=== PATIENT | female | born 1955 | race Caucasian/White ===

== ENCOUNTER 2016-09-09 07:57 | Inpatient (IN) | payer BC ==
[2016-09-09] MEDS ORDERED: ONDANSETRON 4 MG/2 ML VIAL IVP STA (08:36)
[2016-09-09] MEDS ORDERED: MORPHINE SULFATE 4 MG/ML SYRINGE IVP STA ×2 (08:38→14:30)
[2016-09-09] MEDS ORDERED: PANTOPRAZOLE 40 MG/10 ML VIAL IVP STA (08:39)
--- NOTE | 2016-09-09 08:43 | ED ---
Nausea/Vomiting/Diarrhea HPI - General Chief complaint: Nausea/Vomiting/Diarrhea Stated complaint: vomiting Time Seen by Provider: 09/09/16 08:22 Source: patient, family Mode of arrival: wheelchair Limitations: no limitations - History of Present Illness Initial comments: Presented with intractable dry heaving since 1 AM this morning. She went to bed feeling fine she ate some fruits and pain about her last night before going to bed there was no eating out toward her she didn't really eat any of the leftovers and none of the family member has same sort of symptoms. She does have a history of hiatal hernia and she had a hiatal hernia surgery [facility]. Because of that she is unable to throw but she had intractable nausea. She does have a history of chronic, body aches and pains and she said because of the throwing up it's worse now. As such she denies any chest pain no pleuritic chest pain she does have a history of asthma and diabetes and she is a steroid-dependent asthmatic - Related Data Home Medications Medication Instructions Recorded Confirmed Escitalopram [Lexapro] 30 mg PO QAM 01/01/14 09/09/16 Furosemide [Lasix] 40 mg PO BID 01/01/14 09/09/16 Insulin Aspart [NovoLOG] See Protocol SQ CONTINUOUS 01/01/14 09/09/16 Montelukast [Singulair] 10 mg PO HS 01/01/14 09/09/16 Spironolactone [Aldactone] 25 mg PO TID 01/01/14 09/09/16 ALPRAZolam [Xanax] 0.25 mg PO TID 01/02/14 09/09/16 buPROPion HCL [Wellbutrin SR] 450 mg PO QAM 01/02/14 09/09/16 Calcium Citrate/Vitamin D3 2 tab PO DAILY 04/17/14 09/09/16 [Calcium Citrate - Vit D3 Tab] Magnesium Oxide [Mag-Ox] 400 mg PO DAILY 09/25/14 09/09/16 Potassium Chloride ER [K-Dur 20] 60 meq PO BID 11/06/14 09/09/16 Amitriptyline HCl [Elavil] 30 mg PO HS 12/07/14 09/09/16 Ascorbic Acid [Vitamin C] 500 mg PO DAILY 12/07/14 09/09/16 Vitamin B Complex 1 tab PO DAILY 12/07/14 09/09/16 Albuterol Sulfate [Ventolin HFA] 2 puff INHALATION RT-QID PRN 05/12/15 09/09/16 Immunoglobulin 1 dose IVPB QMONTH 05/12/15 09/09/16 Fluconazole [Diflucan] 100 mg PO DAILY PRN 07/06/15 09/09/16 Pregabalin [Lyrica] 75 mg PO TID 05/06/16 09/09/16 Pantoprazole Sodium [Protonix] 20 mg PO DAILY 05/07/16 09/09/16 Prialt 1 dose INTRATHECA DIRECTED 08/04/16 09/09/16 Budesonide [Pulmicort] 0.5 mg INHALATION RT-BID 09/09/16 09/09/16 Fluticasone/Salmeterol [Advair Hfa 2 puff INHALATION RT-BID 09/09/16 09/09/16 230-21 Mcg Inhaler] Pravastatin Sodium [Pravachol] 10 mg PO HS 09/09/16 09/09/16 oxyCODONE-APAP 10-325MG [Percocet 1 tab PO BID 09/09/16 09/09/16 10-325 mg] predniSONE 20 mg PO DAILY 09/09/16 09/09/16 Allergies Allergy/AdvReac Type Severity Reaction Status Date / Time cefuroxime axetil Allergy Severe Abdominal Verified 09/09/16 08:06 [From Ceftin] Pain ciprofloxacin HCl Allergy Severe Abdominal Verified 09/09/16 08:06 [From Cipro] Pain NSAIDS (Non-Steroidal Allergy Dyspnea Verified 09/09/16 08:06 Anti-Inflamma erythromycin base AdvReac Unknown Abdominal Verified 09/09/16 08:06 [Erythromycin Base] Pain sulfamethoxazole AdvReac Unknown Abdominal Verified 09/09/16 08:06 [From Bactrim] Pain trimethoprim [From Bactrim] AdvReac Unknown Abdominal Verified 09/09/16 08:06 Pain indomethacin [From Indocin] AdvReac Confusion Verified 09/09/16 08:06 indomethacin sodium AdvReac Confusion Verified 09/09/16 08:06 [From Indocin] Penicillins AdvReac Nausea & Verified 09/09/16 08:06 Vomiting Sulfa (Sulfonamide AdvReac Abdominal Verified 01/14/17 08:06 Antibiotics) Pain Review of Systems ROS Statement: Those systems with pertinent positive or pertinent negative responses have been documented in the HPI. ROS Other: All systems not noted in ROS Statement are negative. Past Medical History Past Medical History: Asthma, Diabetes Mellitus, Eye Disorder, Fibromyalgia, GERD/Reflux, Hyperlipidemia, Hypertension, Musculoskeletal Disorder, Pneumonia, Respiratory Disorder, Skin Disorder Additional Past Medical History / Comment(s): Bronchial asthma, tracheobronchomalacia, common variable immunoglobulin deficiency and the patient used to have frequent bouts of pneumonias in the past according multiple bronchoscopies including infections with Serratia marcescens and these pneumonia is improved after she was placed on IVIG, chronic steroid use, suspected component of adrenal insufficiency due to chronic steroid use, 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 Dominguez from infectious disease, cataracts, glaucoma, fibromyalgia, chronic pain, compression fracture of the spine, History of Any Multi-Drug Resistant Organisms: MRSA Date of last positivie culture/infection: 2010 MDRO Source:: right hand Past Surgical History: Appendectomy, Breast Surgery, Cholecystectomy, Tubal Ligation Additional Past Surgical History / Comment(s): MULT BRONCHS, WASHINGS, LAST 04/17. EXC [facility] CATARACT. BLEPHAROPLASTY/ R&L BREAST BIOPSIES; PORT A CATH IN LEFT CHEST-CHANGED TO RT CHEST,EXC MYCOBACTERIUM AREAS RT ARM 2011; UPPER TEETH EXTRACTED. RT SALPINGECTOMY/FALLOPIAN TUBE REMOVED, I&D BOIL.Jul [facility] EYE AND MUSCLE SURGERY; - mouth (bone) surgery Past Anesthesia/Blood Transfusion Reactions: Motion Sickness, Postoperative Nausea & Vomiting (PONV) Past Psychological History: Anxiety, Depression Additional Psychological History / Comment(s): . Lives in the family home with her . Not employed outside of the home. Lifelong nonsmoker. No significant history of alcohol use. No history of recreational drug use. No international travels. There are pet dogs in the home. They're still chilled in the home that they are responsible for. Smoking Status: Never smoker Past Alcohol Use History: None Reported Past Drug Use History: None Reported - Past Family History Mother Family Medical History: Cancer Additional Family Medical History / Comment(s): HAD OPEN HEART SURGERY, BREAST CANCER Father Additional Family Medical History / Comment(s): r/t suicide General Exam - General Exam Comments Initial Comments: General: The patient is awake and alert, in no distress, and does not appear acutely ill. Skin: Skin is warm and dry and no rashes or lesions are noted. Eye: Pupils are equal, round and reactive to light, extra-ocular movements are intact; there is normal conjunctiva bilaterally. Ears, nose, mouth and throat: There are moist mucous membranes and no oral lesions. Neck: The neck is supple, there is no tenderness or JVD. Cardiovascular: There is a regular rate and rhythm. No murmur, rub or gallop is appreciated. Respiratory: To auscultation bilateral, bilateral wheezing Gastrointestinal: Soft, non-distended, non-tender abdomen without masses or organomegaly noted. There is no rebound or guarding present. Bowel sounds are unremarkable. Back: There is no tenderness to palpation in the midline. There is no obvious deformity. Musculoskeletal: Normal ROM, no tenderness, There is no pedal edema. There is no calf tenderness or swelling. No cords were appreciated. Neurological: CN II-XII intact, Cranial nerves III through XII are intact. There are no obvious motor or sensory deficits. Coordination appears grossly intact. Speech is normal. Psychiatric: Cooperative, appropriate mood & affect, normal judgment. Limitations: no limitations Course Vital Signs 09/09/16 09/09/16 09/09/16 08:05 09:48 10:21 Temperature 98.6 F Pulse Rate 100 111 H 109 H Respiratory 20 18 18 Rate Blood Pressure 107/54 106/54 96/53 O2 Sat by Pulse 99 95 94 L Oximetry 09/09/16 09/09/16 10:58 12:50 Temperature Pulse Rate 111 H 108 H Respiratory 16 18 Rate Blood Pressure 97/54 108/56 O2 Sat by Pulse 95 96 Oximetry Labs and x-rays and imaging studies including CT was reviewed and discussed with the patient patient has been requested that I talk to Dr. steve considering she has too many antibiotic ALLERGIES and they agree with the admission to the hospital as well they were requesting private true I will convey that to the administration about that Medical Decision Making - Lab Data Result diagrams: 09/09/16 09:35 09/09/16 09:35 Lab Results 09/09/16 09/09/16 09/09/16 Range/Units 09:35 09:35 09:35 WBC 7.5 (3.8-10.6) k/uL RBC 5.09 (3.80-5.40) m/uL Hgb 13.3 (11.4-16.0) gm/dL Hct 42.5 (34.0-46.0) % MCV 83.5 (80.0-100.0) fL MCH 26.1 (25.0-35.0) pg MCHC 31.2 (31.0-37.0) g/dL RDW 16.6 H (11.5-15.5) % Plt Count 166 (150-450) k/uL Neutrophils % 91 % Lymphocytes % 4 % Monocytes % 4 % Eosinophils % 1 % Basophils % 0 % Neutrophils # 6.9 (1.3-7.7) k/uL Lymphocytes # 0.3 L (1.0-4.8) k/uL Monocytes # 0.3 (0-1.0) k/uL Eosinophils # 0.0 (0-0.7) k/uL Basophils # 0.0 (0-0.2) k/uL Hypochromasia Moderate Anisocytosis Slight Sodium 140 (137-145) mmol/L Potassium 4.2 (3.5-5.1) mmol/L Chloride 103 (98-107) mmol/L Carbon Dioxide 28 (22-30) mmol/L Anion Gap 9 mmol/L BUN 24 H (7-17) mg/dL Creatinine 0.82 (0.52-1.04) mg/dL Est GFR (MDRD) Af Amer >60 (>60 ml/min/1.73 sqM) Est GFR (MDRD) Non-Af >60 (>60 ml/min/1.73 sqM) Glucose 111 H (74-99) mg/dL POC Glucose (mg/dL) (75-99) mg/dL POC Glu Drawing Supervisor ID Calcium 8.2 L (8.4-10.2) mg/dL Total Bilirubin 0.3 (0.2-1.3) mg/dL AST 44 H (14-36) U/L ALT 51 (9-52) U/L Alkaline Phosphatase 67 (38-126) U/L Total Protein 6.3 (6.3-8.2) g/dL Albumin 3.5 (3.5-5.0) g/dL Amylase 51 (30-110) U/L Lipase 64 (23-300) U/L Urine Color Yellow Urine Appearance Clear (Clear) Urine pH 8.5 H (5.0-8.0) Ur Specific Morton 1.017 (1.001-1.035) Urine Protein Trace H (Negative) Urine Glucose (UA) Negative (Negative) Urine Ketones Negative (Negative) Urine Blood Negative (Negative) Urine Nitrate Negative (Negative) Urine Bilirubin Negative (Negative) Urine Urobilinogen <2.0 (<2.0) mg/dL Ur Leukocyte Esterase Negative (Negative) 09/09/16 Range/Units 12:44 WBC (3.8-10.6) k/uL RBC (3.80-5.40) m/uL Hgb (11.4-16.0) gm/dL Hct (34.0-46.0) % MCV (80.0-100.0) fL MCH (25.0-35.0) pg MCHC (31.0-37.0) g/dL RDW (11.5-15.5) % Plt Count (150-450) k/uL Neutrophils % % Lymphocytes % % Monocytes % % Eosinophils % % Basophils % % Neutrophils # (1.3-7.7) k/uL Lymphocytes # (1.0-4.8) k/uL Monocytes # (0-1.0) k/uL Eosinophils # (0-0.7) k/uL Basophils # (0-0.2) k/uL Hypochromasia Anisocytosis Sodium (137-145) mmol/L Potassium (3.5-5.1) mmol/L Chloride (98-107) mmol/L Carbon Dioxide (22-30) mmol/L Anion Gap mmol/L BUN (7-17) mg/dL Creatinine (0.52-1.04) mg/dL Est GFR (MDRD) Af Amer (>60 ml/min/1.73 sqM) Est GFR (MDRD) Non-Af (>60 ml/min/1.73 sqM) Glucose (74-99) mg/dL POC Glucose (mg/dL) 93 (75-99) mg/dL POC Glu Drawing Supervisor ID Sagar Child Calcium (8.4-10.2) mg/dL Total Bilirubin (0.2-1.3) mg/dL AST (14-36) U/L ALT (9-52) U/L Alkaline Phosphatase (38-126) U/L Total Protein (6.3-8.2) g/dL Albumin (3.5-5.0) g/dL Amylase (30-110) U/L Lipase (23-300) U/L Urine Color Urine Appearance (Clear) Urine pH (5.0-8.0) Ur Specific Morton (1.001-1.035) Urine Protein (Negative) Urine Glucose (UA) (Negative) Urine Ketones (Negative) Urine Blood (Negative) Urine Nitrate (Negative) Urine Bilirubin (Negative) Urine Urobilinogen (<2.0) mg/dL Ur Leukocyte Esterase (Negative) Disposition Clinical Impression: Enteritis, Fever, Pneumonia, Intractable nausea and vomiting Disposition: ADMITTED IP TO THIS [facility] Condition: Good
[2016-09-09] MEDS ORDERED: SODIUM CHLORIDE 0.9% 500 ML IV ONE (08:57)
[2016-09-09 09:52] LABS: Appearance,Urine Clear (Clear); Bilirubin,Urine Negative (Negative); Glucose,Urine (UA) Negative (Negative); Ketones,Urine Negative (Negative); Leukocyte Esterase,Urine Negative (Negative); Nitrite,Urine Negative (Negative); PH, Urine 8.5 (5.0-8.0); Protein,Urine Trace (Negative); Specific Gravity,Urine 1.017 (1.001-1.035); UA Billing (MACRO vs. MICRO) CHEM; Urobilinogen,Urine <2.0 mg/dL (<2.0)
[2016-09-09 09:55] LABS: Anisocytosis Slight; Basophils % (A) 0 %; CHCM 31.3; Eosinophils % (A) 1 %; HCT 42.5 % (34.0-46.0); HDW 2.89; HGB 13.3 gm/dL (11.4-16.0); Hypochromasia Moderate; Luc # (Auto) 0.03; Luc % (Auto) 1; Lymphocytes # (A) 0.3 k/uL (1.0-4.8); Lymphocytes % (A) 4 %; MCH 26.1 pg (25.0-35.0); MCHC 31.2 g/dL (31.0-37.0); MCV 83.5 fL (80.0-100.0); Mean Platelet Volume 7.8; Monocytes # (A) 0.3 k/uL (0-1.0); Monocytes % (A) 4 %; Neutrophils # (A) 6.9 k/uL (1.3-7.7); Neutrophils % (A) 91 %; RBC 5.09 m/uL (3.80-5.40); RDW 16.6 % (11.5-15.5); WBC 7.5 k/uL (3.8-10.6); WBC (Perox) 7.88
[2016-09-09 10:03] LABS: ALT 51 U/L (9-52); AST 44 U/L (14-36); Alkaline Phosphatase 67 U/L (38-126); Amylase 51 U/L (30-110); Anion Gap 9 mmol/L; Blood Urea Nitrogen 24 mg/dL (7-17); Calcium 8.2 mg/dL (8.4-10.2); Carbon Dioxide 28 mmol/L (22-30); Chloride 103 mmol/L (98-107); Glucose 111 mg/dL (74-99); Non-African American GFR(MDRD) >60 (>60 ml/min/1.73 sqM); Potassium 4.2 mmol/L (3.5-5.1); Sodium 140 mmol/L (137-145); Total Bilirubin 0.3 mg/dL (0.2-1.3); Total Protein 6.3 g/dL (6.3-8.2)
--- NOTE | 2016-09-09 10:20 | XR ---
EXAMINATION TYPE: XR chest 2V DATE OF EXAM: 09/09/2016 10:06 AM COMPARISON: 05/07/2016 and 05/06/2016 HISTORY: 61-year-old female with pain and dry heaves with weakness TECHNIQUE: AP and lateral views FINDINGS: Heart is upper limits of normal in size. Mild interstitial prominence is unchanged. There is some pat harris peripheral left basilar opacity is similar area as seen on prior exam but new from the exams prio r to that. Otherwise, no consolidation or pleural effusion. Right anterior chest wall injection port with catheter having shifted position now looped back toward s the right and a looped again projecting towards the left likely within the subclavian vein. IMPRESSION: 1. Patchy left basilar atelectasis or infiltrate. 2. The right-sided injection port catheter has shifted position, now looped so that it heads towards the right and then back towards the left with tip likely in the subclavian vein.
--- NOTE | 2016-09-09 10:21 | XR ---
EXAMINATION TYPE: XR KUB DATE OF EXAM: 09/09/2016 10:06 AM COMPARISON: NONE HISTORY: 61-year-old female with pain, dry heaves and weakness all night FINDINGS: No evidence for free intraperitoneal air. There is moderate stool in the left hemicolon. Some colonic and probable small bowel air-fluid levels are seen in the right abdomen. No obvious dilated bowel loops. Degenerative changes throughout the spine, the tract device projecting lateral to the left pelvis. Ch olecystectomy clips. IMPRESSION: Colonic and likely some small bowel air-fluid levels in the right abdomen. Correlate for enteritis or ileus. Follow-up may be helpful to exclude early bowel obstruction. No free air.
[2016-09-09] MEDS ORDERED: RX INFO: IV CONTRAST WAS GIVEN 1 EACH MISC MISCELLANE PRN (11:37)
[2016-09-09 12:46] LABS: Glucose,Whole Blood 93 mg/dL (75-99)
[2016-09-09] MEDS ORDERED: CLINDAMYCIN 900 MG in DEXTROSE 5% IN WATER 50 ML IVPB STA ×2 (12:46)
[2016-09-09] MEDS ORDERED: ACETAMINOPHEN IV (For NPO) 1,000 MG in EMPTY BAG 1 BAG IVPB ONE ×2 (12:47→19:15)
--- NOTE | 2016-09-09 13:03 | CT ---
EXAMINATION TYPE: CT abdomen pelvis w con DATE OF EXAM: 09/09/2016 12:47 PM COMPARISON: Radiograph same date HISTORY: 61-year-old female with nausea, vomiting, diarrhea with pelvis pain TECHNIQUE: Contiguous axial scanning of the abdomen and pelvis following administration of 100 ml Omn ipaque 300 IV contrast. Delayed images through the kidneys and coronal/sagittal reconstructions perf ormed. CT DLP: 628.1 mGycm Automated exposure control for dose reduction was used. FINDINGS: Heart is normal size with trace pericardial fluid. There is an patchy atelectasis or early infiltrate at the peripheral left base. No pleural effusion. Hypodense lesion right hepatic lobe measuring 1.7 cm suggestive of a cyst. Mild prominence to the l[place] iary system likely on the basis of postcholecystectomy status. Portal venous system is patent. Adrenal glands, left kidney, spleen with inferior and anterior splenules, and mildly atrophic pancrea s show no gross abnormality. There is a cortical defect in the medial upper pole of the right kidney suggesting prior vascular or infectious insult. There is a isrsy-ne-kunhybcl size hiatal hernia. There are prominent fluid-filled small bowel loops in the mid and lower abdomen without abnormal dannie l dilatation. Liquid stool is present within the right hemicolon with moderate stool in the left michele colon. No pericolonic inflammatory change seen. There is short segment circumferential annular narrowing along the proximal transverse colon, axial i mage 39 and coronal image 9 and also in the ascending colon, axial image 33 and sagittal image 27 whi ch appear to persist on the delayed kidney images. No mesenteric or retroperitoneal lymphadenopathy seen. Bladder is urine distended. Uterus and ovaries are visualized. No abnormal fluid collection in the pe lvis or pelvic lymphadenopathy. Pelvic phleboliths are present. Bones: There appears to be a subacute displaced fracture of the right inferior pubic ramus with some callus formation. Additional mildly displaced fracture of the right superior pubic ramus with some ca llus formation appears more subacute to chronic. Mild degenerative changes at the hips. There is a st ep-off along the right sacral alar near the SI joint, and axial image 58. Degenerative changes throug hout the visualized spine. Mild anterior wedging T11 and T12 as a chronic appearance as does a promin ent superior endplate Schmorl's node of L4. IMPRESSION: 1. PROMINENT FLUID-FILLED SMALL BOWEL LOOPS IN THE MID AND LOWER ABDOMEN WITH LIQUID STOOL IN THE RIG HT HEMICOLON. THERE IS NO ABNORMAL BOWEL DILATATION. FINDINGS SUGGEST ENTERITIS. 2. MODERATE SOLID STOOL IN THE REMAINDER OF THE LEFT HEMICOLON. 3. A COUPLE AREAS OF ANNULAR NARROWING IN THE RIGHT COLON PERSIST ON THE DELAYED KIDNEY IMAGES AND ID OBABLY REPRESENT AREAS OF SPASM. CORRELATE WITH FINDINGS ON ROUTINE COLONOSCOPY. 4. SMALL TO MODERATE-SIZED HIATAL HERNIA. 5. SUSPECT SUBACUTE FRACTURES OF THE RIGHT SUPERIOR AND INFERIOR PUBIC RAMI. THERE ALSO APPEARS TO BE AN INSUFFICIENCY FRACTURE OF THE RIGHT SACRAL ALA. CORRELATE TO TIME FRAME FROM A RECENT INJURY.
[2016-09-09] MEDS ORDERED: SODIUM CHLORIDE 0.9% 1,000 ML IV ONE (14:13)
[2016-09-09] MEDS ORDERED: FLUCONAZOLE 100 MG TAB PO PRN (14:19)
[2016-09-09] MEDS ORDERED: SODIUM CHLORIDE 0.9% 500 ML IV STA ×2 (14:29→14:55)
[2016-09-09] MEDS ORDERED: PRIALT INTRATHECA SCH (14:30)
[2016-09-09 15:06] LABS: Glucose,Whole Blood 104 mg/dL (75-99)
[2016-09-09 16:25] VITALS: BMI 24.5
[2016-09-09 17:07] LABS: Glucose,Whole Blood 73 mg/dL (75-99)
[2016-09-09] MEDS: SPIRONOLACTONE 25 MG TAB PO SCH ×2 (17:28→21:44)
[2016-09-09] MEDS: FUROSEMIDE 40 MG TAB PO SCH (17:28)
[2016-09-09] MEDS: PREGABALIN 75 MG CAP PO SCH ×2 (17:29→21:44)
[2016-09-09] MEDS: ALPRAZolam 0.25 MG TAB PO SCH ×2 (17:29→21:43)
[2016-09-09] MEDS ORDERED: ACETAMINOPHEN TAB 325 MG TAB PO PRN (18:57)
[2016-09-09] MEDS: SODIUM CHLORIDE 0.9% 1,000 ML IV SCH (19:53)
[2016-09-09] MEDS: oxyCODONE-APAP 10-325MG 1 EACH TAB PO PRN (20:00)
[2016-09-09] MEDS ORDERED: BUDESONIDE 0.5 MG/2 ML NEBU INHALATION SCH (20:00)
[2016-09-09] MEDS: AMITRIPTYLINE HCL 10 MG TAB PO SCH (20:01)
[2016-09-09] MEDS: POTASSIUM CHLORIDE ER 20 MEQ TAB.ER PO SCH (20:02)
[2016-09-09] MEDS: MONTELUKAST 10 MG TAB PO SCH (20:02)
[2016-09-09] MEDS: PRAVASTATIN SODIUM 20 MG TAB PO SCH (20:02)
[2016-09-09] MEDS: SYMBICORT 160-4.5 MCG INHALER INHALATION SCH (20:03)
[2016-09-09] MEDS: ALBUTEROL NEBULIZED 2.5 MG/3 ML INHALATION PRN ×2 (20:03→23:04)
[2016-09-09] MEDS ORDERED: oxyCODONE-APAP 10-325MG 1 EACH TAB PO SCH (21:00)
[2016-09-09 21:13] LABS: Glucose,Whole Blood 63 mg/dL (75-99)
--- NOTE | 2016-09-09 23:10 | P.CONS ---
History of Present Illness - Reason for Consult Consult date: 09/09/16 - Chief Complaint retching - History of Present Illness 61-year-old female presents to the emergency center with several hour history of nausea associated with dry heaves. She developed increasing amounts of discomfort because of her inability to take her medications. She Presented to the Emergency Center. There There Was Concern for Some Dehydration As Well As Her Abdominal Status. She Did Have a Fever of At Least 101 and Calcium Was Admitted to Hospital after a Dose of Antibiotic Therapy for Further Intervention. She This Time Relates That She's Feeling Somewhat Better. Still Has No Appetite. Has Had No Further Retching for the Last Multiple Hours. She Is Still Feeling Somewhat Weak. Without the Will Take Her Medications by Mouth She's Had Significant Worsening of Her Generalized Pain. She Is Denying Further Fever Chill or Rigor This Afternoon. Review of Systems Constitutional: Reports anorexia, Reports chills, Reports chronic pain, Reports fever, Reports poor appetite, Reports weakness Eyes: denies blurred vision, denies pain Ears, nose, mouth and throat: Denies headache, Denies sore throat Cardiovascular: Denies chest pain, Denies leg edema, Denies shortness of breath Respiratory: Reports cough, Reports cough with sputum Gastrointestinal: Reports loss of appetite, Reports nausea, Denies abdominal pain, Denies diarrhea, Denies vomiting Genitourinary: Reports difficulty voiding, Denies dysuria, Denies hematuria, Denies urinary frequency Musculoskeletal: Denies myalgias Integumentary: Reports rash, Denies pruritus Neurological: Reports confusion, no recurrent syncope, Denies numbness, Denies weakness Psychiatric: Denies anxiety, Denies depression Endocrine: severe fatigue, Denies weight change Past Medical History Past Medical History: Asthma, Diabetes Mellitus, Eye Disorder, Fibromyalgia, GERD/Reflux, Hyperlipidemia, Hypertension, Musculoskeletal Disorder, Pneumonia, Respiratory Disorder, Skin Disorder Additional Past Medical History / Comment(s): Bronchial asthma, tracheobronchomalacia, common variable immunoglobulin deficiency and the patient used to have frequent bouts of pneumonias in the past according multiple bronchoscopies including infections with Serratia marcescens and these pneumonia is improved after she was placed on IVIG,(LAST INFUSION AFTER ) chronic steroid use, suspected component of adrenal insufficiency due to chronic steroid use, 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 Dominguez from infectious disease, cataracts, glaucoma, fibromyalgia, chronic pain, compression fracture of the spine, History of Any Multi-Drug Resistant Organisms: MRSA Year Discovered:: 2010 MDRO Source:: right hand Past Surgical History: Appendectomy, Breast Surgery, Cholecystectomy, Tubal Ligation Additional Past Surgical History / Comment(s): MULT BRONCHS, WASHINGS, LAST 04/17. EXC [facility] CATARACT. BLEPHAROPLASTY/ R&L BREAST BIOPSIES; PORT A CATH IN RIGHT CHEST-MYCOBACTERIUM AREAS RT ARM 2011; UPPER TEETH EXTRACTED. RT SALPINGECTOMY/FALLOPIAN TUBE REMOVED, I&D BOIL.Jul [facility] EYE AND MUSCLE SURGERY; - mouth (bone) surgery Past Anesthesia/Blood Transfusion Reactions: Motion Sickness, Postoperative Nausea & Vomiting (PONV) Past Psychological History: Anxiety, Depression Additional Psychological History / Comment(s): . Lives in the family home with her . Not employed outside of the home. Lifelong nonsmoker. No significant history of alcohol use. No history of recreational drug use. No international travels. There are pet dogs in the home. They're still chilled in the home that they are responsible for. Smoking Status: Never smoker Past Alcohol Use History: None Reported Past Drug Use History: None Reported - Past Family History Mother Family Medical History: Cancer Additional Family Medical History / Comment(s): HAD OPEN HEART SURGERY, BREAST CANCER Father Additional Family Medical History / Comment(s): r/t suicide Medications and Allergies Home Medications and Allergies Comment(s): Current Medications Acetaminophen (Tylenol Tab) 650 mg PO Q6HR PRN PRN Reason: Fever and/ or Pain Albuterol Sulfate (Ventolin Nebulized) 2.5 mg INHALATION RT-QID PRN PRN Reason: Shortness Of Breath Last Admin: 09/09/16 23:04 Dose: 2.5 mg Alprazolam (Xanax) 0.25 mg PO TID [facility] Last Admin: 09/09/16 21:43 Dose: 0.25 mg Amitriptyline HCl (Elavil) 30 mg PO HS [facility] Last Admin: 09/09/16 20:01 Dose: 30 mg Ascorbic Acid (Vitamin C) 500 mg PO 1200 [facility] Budesonide/Formoterol Fumarate (Symbicort 160-4.5 Mcg Inhaler) 2 puff INHALATION RT-BID [facility] Last Admin: 09/09/16 20:03 Dose: 2 puff Bupropion HCl (Wellbutrin Xl) 450 mg PO QAM [facility] Calcium Carbonate (Oscal 500+D) 2 each PO 1200 [facility] Enoxaparin Sodium (Lovenox) 40 mg SQ DAILY [facility] Escitalopram Oxalate (Lexapro) 30 mg PO QAM [facility] Fluconazole (Diflucan) 100 mg PO DAILY PRN PRN Reason: Pain Furosemide (Lasix) 40 mg PO BID@0900,1600 [facility] Last Admin: 09/09/16 17:28 Dose: 40 mg Sodium Chloride (Saline 0.9%) 1,000 mls @ 150 mls/hr IV .Q6H40M [facility] Last Admin: 09/09/16 19:53 Dose: 150 mls/hr Magnesium Oxide (Mag-Ox) 400 mg PO 1200 [facility] Miscellaneous Information (Rx Info: Iv Contrast Was Given) 1 each MISCELLANE DAILY PRN PRN Reason: Per Protocol Stop: 09/11/16 11:37 Montelukast Sodium (Singulair) 10 mg PO [facility] Last Admin: 09/09/16 20:02 Dose: 10 mg Oxycodone/Acetaminophen (Percocet 10-325) 1 each PO Q4H PRN PRN Reason: Pain Last Admin: 09/09/16 20:00 Dose: 1 each Pantoprazole Sodium (Protonix) 40 mg PO AC-BRKFST [facility] Potassium Chloride (K-Dur 20) 60 meq PO BID [facility] Last Admin: 09/09/16 20:02 Dose: 60 meq Pravastatin Sodium (Pravachol) 10 mg PO [facility] Last Admin: 09/09/16 20:02 Dose: 10 mg Prednisone () 20 mg PO DAILY [facility] Pregabalin (Lyrica) 75 mg PO TID [facility] Last Admin: 09/09/16 21:44 Dose: 75 mg Spironolactone (Aldactone) 25 mg PO TID [facility] Last Admin: 09/09/16 21:44 Dose: 25 mg Vitamin B Complex/Vit C/Vit E/Zinc (Z-Bec) 1 each PO 1200 [facility] Home Medications Medication Instructions Recorded Confirmed Type Escitalopram [Lexapro] 30 mg PO QAM 01/01/14 09/09/16 History Furosemide [Lasix] 40 mg PO BID 01/01/14 09/09/16 History Insulin Aspart [NovoLOG] See Protocol SQ CONTINUOUS 01/01/14 09/09/16 History Montelukast [Singulair] 10 mg PO HS 01/01/14 09/09/16 History Spironolactone [Aldactone] 25 mg PO TID 01/01/14 09/09/16 History ALPRAZolam [Xanax] 0.25 mg PO TID 01/02/14 09/09/16 History Calcium Citrate/Vitamin D3 2 tab PO DAILY 04/17/14 09/09/16 History [Calcium Citrate - Vit D3 Tab] Magnesium Oxide [Mag-Ox] 400 mg PO DAILY 09/25/14 09/09/16 History Potassium Chloride ER [K-Dur 20] 60 meq PO BID 11/06/14 09/09/16 History Amitriptyline HCl [Elavil] 30 mg PO HS 12/07/14 09/09/16 History Ascorbic Acid [Vitamin C] 500 mg PO DAILY 12/07/14 09/09/16 History Vitamin B Complex 1 tab PO DAILY 12/07/14 09/09/16 History Albuterol Sulfate [Ventolin HFA] 2 puff INHALATION RT-QID PRN 05/12/15 09/09/16 History Immunoglobulin 1 dose IVPB QMONTH 05/12/15 09/09/16 History Fluconazole [Diflucan] 100 mg PO DAILY PRN 07/06/15 09/09/16 History Pregabalin [Lyrica] 75 mg PO TID 05/06/16 09/09/16 History Pantoprazole Sodium [Protonix] 20 mg PO DAILY 05/07/16 09/09/16 History Prialt 1 dose INTRATHECA DIRECTED 08/04/16 09/09/16 History Budesonide [Pulmicort] 0.5 mg INHALATION RT-BID 09/09/16 09/09/16 History Fluticasone/Salmeterol [Advair Hfa 2 puff INHALATION RT-BID 09/09/16 09/09/16 History 230-21 Mcg Inhaler] Pravastatin Sodium [Pravachol] 10 mg PO HS 09/09/16 09/09/16 History buPROPion XL [Wellbutrin Xl] 450 mg PO DAILY 09/09/16 09/09/16 History oxyCODONE-APAP 10-325MG [Percocet 1 tab PO BID 09/09/16 09/09/16 History 10-325 mg] predniSONE 20 mg PO DAILY 09/09/16 09/09/16 History Allergies Allergy/AdvReac Type Severity Reaction Status Date / Time cefuroxime axetil Allergy Severe Abdominal Verified 09/09/16 08:06 [From Ceftin] Pain ciprofloxacin HCl Allergy Severe Abdominal Verified 09/09/16 08:06 [From Cipro] Pain NSAIDS (Non-Steroidal Allergy Dyspnea Verified 09/09/16 08:06 Anti-Inflamma erythromycin base AdvReac Unknown Abdominal Verified 09/09/16 08:06 [Erythromycin Base] Pain sulfamethoxazole AdvReac Unknown Abdominal Verified 09/09/16 08:06 [From Bactrim] Pain trimethoprim [From Bactrim] AdvReac Unknown Abdominal Verified 09/09/16 08:06 Pain indomethacin [From Indocin] AdvReac Confusion Verified 09/09/16 08:06 indomethacin sodium AdvReac Confusion Verified 09/09/16 08:06 [From Indocin] Penicillins AdvReac Nausea & Verified 09/09/16 08:06 Vomiting Sulfa (Sulfonamide AdvReac Abdominal Verified 09/09/16 08:06 Antibiotics) Pain Physical Exam Vitals: Vital Signs Temp Pulse Pulse Resp BP Pulse Ox 09/09/16 20:28 96 09/09/16 20:11 104 H 09/09/16 16:13 99.1 F 108 H 20 94/54 96 09/09/16 15:23 101.3 F H Intake and Output 09/09/16 09/09/16 09/10/16 14:59 22:59 06:59 Other: Weight 61 kg Patient Weight 09/10/16 06:59 Weight 61 kg Gen: This is a 61-year-old female. . Patient is very talkative and able to clearly relate the circumstances bringing her to the hospital. HEENT: Head is atraumatic, normocephalic. Pupils equal, round. Sclerae is anicteric. Conjunctiva pink. His membranes of the mouth are slightly dry. Dentures are in place NECK: Supple. No JVD. No lymphadenopathy. No thyromegaly. LUNGS: Scattered rhonchi throughout. No intercostal retractions. HEART: Regular rate and rhythm. No murmur. Port noted to the right upper anterior chest wall. No redness or tenderness. ABDOMEN: Soft. Bowel sounds are present. No masses. some mild generalized abdominal tenderness. EXTREMITIES: No pedal edema. No calf tenderness. Dorsalis pedis is +2 bilaterally. NEUROLOGICAL: Patient is awake, alert and oriented x3 Results CBC & Chem 7: 09/09/16 09:35 09/09/16 09:35 Labs: Abnormal Lab Results - Last 24 Hours (Table) 09/09/16 09/09/16 Range/Units 16:59 21:05 POC Glucose (mg/dL) 73 L 63 L (75-99) mg/dL Laboratory Results WBC 7.5 k/uL (3.8-10.6) 09/09/16 09:35 RBC 5.09 m/uL (3.80-5.40) 09/09/16 09:35 Hgb 13.3 gm/dL (11.4-16.0) 09/09/16 09:35 Hct 42.5 % (34.0-46.0) 09/09/16 09:35 MCV 83.5 fL (80.0-100.0) 09/09/16 09:35 MCH 26.1 pg (25.0-35.0) 09/09/16 09:35 MCHC 31.2 g/dL (31.0-37.0) 09/09/16 09:35 RDW 16.6 % (11.5-15.5) H 09/09/16 09:35 Plt Count 166 k/uL (150-450) 09/09/16 09:35 Neutrophils % 91 % 09/09/16 09:35 Lymphocytes % 4 % 09/09/16 09:35 Monocytes % 4 % 09/09/16 09:35 Eosinophils % 1 % 09/09/16 09:35 Basophils % 0 % 09/09/16 09:35 Neutrophils # 6.9 k/uL (1.3-7.7) 09/09/16 09:35 Lymphocytes # 0.3 k/uL (1.0-4.8) L 09/09/16 09:35 Monocytes # 0.3 k/uL (0-1.0) 09/09/16 09:35 Eosinophils # 0.0 k/uL (0-0.7) 09/09/16 09:35 Basophils # 0.0 k/uL (0-0.2) 09/09/16 09:35 Hypochromasia Moderate 09/09/16 09:35 Anisocytosis Slight 09/09/16 09:35 Sodium 140 mmol/L (137-145) 09/09/16 09:35 Potassium 4.2 mmol/L (3.5-5.1) 09/09/16 09:35 Chloride 103 mmol/L (98-107) 09/09/16 09:35 Carbon Dioxide 28 mmol/L (22-30) 09/09/16 09:35 Anion Gap 9 mmol/L 09/09/16 09:35 BUN 24 mg/dL (7-17) H 09/09/16 09:35 Creatinine 0.82 mg/dL (0.52-1.04) 09/09/16 09:35 Est GFR (MDRD) Af Amer >60 (>60 ml/min/1.73 sqM) 09/09/16 09:35 Est GFR (MDRD) Non-Af >60 (>60 ml/min/1.73 sqM) 09/09/16 09:35 Glucose 111 mg/dL (74-99) H 09/09/16 09:35 POC Glucose (mg/dL) 63 mg/dL (75-99) L 09/09/16 21:05 POC Glu Inbound Sales Consultant ID Brenda Will 09/09/16 21:05 Plasma Lactic Acid Geovanni 1.3 mmol/L (0.7-2.0) 09/09/16 14:44 Calcium 8.2 mg/dL (8.4-10.2) L 09/09/16 09:35 Total Bilirubin 0.3 mg/dL (0.2-1.3) 09/09/16 09:35 AST 44 U/L (14-36) H 09/09/16 09:35 ALT 51 U/L (9-52) 09/09/16 09:35 Alkaline Phosphatase 67 U/L (38-126) 09/09/16 09:35 Total Protein 6.3 g/dL (6.3-8.2) 09/09/16 09:35 Albumin 3.5 g/dL (3.5-5.0) 09/09/16 09:35 Amylase 51 U/L (30-110) 09/09/16 09:35 Lipase 64 U/L (23-300) 09/09/16 09:35 Urine Color Yellow 09/09/16 09:35 Urine Appearance Clear (Clear) 09/09/16 09:35 Urine pH 8.5 (5.0-8.0) H 09/09/16 09:35 Ur Specific [place] 1.017 (1.001-1.035) 09/09/16 09:35 Urine Protein Trace (Negative) H 09/09/16 09:35 Urine Glucose (UA) Negative (Negative) 09/09/16 09:35 Urine Ketones Negative (Negative) 09/09/16:35 Urine Blood Negative (Negative) 09/09/16 09:35 Urine Nitrate Negative (Negative) 09/09/16:35 Urine Bilirubin Negative (Negative) 09/09/16 09:35 Urine Urobilinogen <2.0 mg/dL (<2.0) 09/09/16 09:35 Ur Leukocyte Esterase Negative (Negative) 09/09/16 09:35 Microbiology 09/09/16 13:00 Urine,Voided Urine Culture - Preliminary Assessment and Plan (1) Intractable nausea and vomiting Narrative/Plan: 61-year-old woman who has common variable deficiency presents to Hospital with the onset of nausea and retching. She has a history of indecent fundoplication and really can't have significant emesis. She Overfelt very poorly and became more dehydrated and having increasing amounts of pain due to inability to take her medications. S2 present to the emergency room. There she had evidence of fever which is now resolved. She's feeling better this evening with fluid and hydration. Pain control is been difficult because of inability to take her pills and is hoping to have some further pain control at this time. She is at this time related severe headache and generalized malaise with the retching her upper abdomen and lower chest is uncomfortable. No acute severe changes on the exam are noted at this time. Plan will be to continue hydration and neck she increase a bit for now. Monitor urinary output. Change her Percocet 2 4 times a day for now until she has some further stabilization. The family needs follow-up with her specialist pain physician in the near future to determine with her next best options will be. Fever has resolved no further antibiotics at this time. Lactic acid is normal. Status: Acute (2) CVID (common variable immunodeficiency) Status: Acute (3) Fever Status: Acute (4) Enteritis Status: Acute
[2016-09-10] MEDS: SODIUM CHLORIDE 0.9% 1,000 ML IV SCH ×4 (00:38→21:10)
[2016-09-10 01:27] LABS: Glucose,Whole Blood 72 mg/dL (75-99)
[2016-09-10] MEDS: oxyCODONE-APAP 10-325MG 1 EACH TAB PO PRN ×4 (01:52→22:32)
[2016-09-10 02:33] LABS: Glucose,Whole Blood 63 mg/dL (75-99)
[2016-09-10 03:05] LABS: Glucose,Whole Blood 81 mg/dL (75-99)
[2016-09-10 05:24] LABS: Glucose,Whole Blood 66 mg/dL (75-99)
[2016-09-10 06:03] LABS: Glucose,Whole Blood 66 mg/dL (75-99)
[2016-09-10] MEDS ORDERED: GLUCAGON 1 MG/ML VIAL IVP STA (06:54)
[2016-09-10] MEDS ORDERED: DEXTROSE 10% IN WATER 500 ML in EMPTY BAG 1 BAG IV SCH (07:00)
[2016-09-10 07:42] LABS: Glucose,Whole Blood 63 mg/dL (75-99)
[2016-09-10 07:42] LABS: Glucose,Whole Blood 53 mg/dL (75-99)
[2016-09-10] MEDS: PANTOPRAZOLE 40 MG TABLET PO SCH (07:47)
[2016-09-10] MEDS: SPIRONOLACTONE 25 MG TAB PO SCH ×3 (07:48→21:09)
[2016-09-10] MEDS: PREGABALIN 75 MG CAP PO SCH ×3 (07:48→21:09)
[2016-09-10] MEDS: ESCITALOPRAM 10 MG TAB PO SCH (07:48)
[2016-09-10] MEDS: FUROSEMIDE 40 MG TAB PO SCH ×2 (07:49→16:19)
[2016-09-10] MEDS: buPROPion XL 150 MG TAB.ER.24H PO SCH (07:49)
[2016-09-10] MEDS: ENOXAPARIN 40 MG/0.4 ML SYRINGE SQ SCH (07:49)
[2016-09-10] MEDS: POTASSIUM CHLORIDE ER 20 MEQ TAB.ER PO SCH ×2 (07:51→21:08)
[2016-09-10] MEDS: SYMBICORT 160-4.5 MCG INHALER INHALATION SCH ×2 (08:01→19:04)
[2016-09-10] MEDS ORDERED: ONDANSETRON 4 MG/2 ML VIAL IVP STA (08:05)
[2016-09-10] MEDS: ALPRAZolam 0.25 MG TAB PO SCH ×3 (08:08→21:08)
[2016-09-10 08:09] LABS: Glucose,Whole Blood 97 mg/dL (75-99)
[2016-09-10] MEDS: ALBUTEROL NEBULIZED 2.5 MG/3 ML INHALATION PRN ×2 (08:18→19:04)
[2016-09-10] MEDS ORDERED: predniSONE 20 MG TAB PO SCH (09:00)
[2016-09-10] MEDS ORDERED: buPROPion XL 150 MG TAB.ER.24H PO SCH (12:00)
[2016-09-10 12:13] LABS: Glucose,Whole Blood 95 mg/dL (75-99)
[2016-09-10] MEDS: CALCIUM CARB-VIT D 500MG-200UN 1 EACH TAB PO SCH ×2 (12:17→12:21)
[2016-09-10] MEDS: B COMPLEX-VIT C-VIT E-ZINC 1 EACH TAB PO SCH ×2 (12:17→12:22)
[2016-09-10] MEDS: ASCORBIC ACID 500 MG TAB PO SCH ×2 (12:18→12:22)
[2016-09-10] MEDS: MAGNESIUM OXIDE 400 MG TAB PO SCH (12:18)
[2016-09-10] MEDS: HYDROCORTISONE SUCCINATE 100 MG/2 ML VIAL IV SCH ×3 (12:45→23:28)
--- NOTE | 2016-09-10 12:58 | CONS ---
DATE OF CONSULTATION: 09/10/2016 REASON FOR CONSULTATION: Nausea, vomiting, diarrhea, possible enteritis. HISTORY OF PRESENT ILLNESS: The patient is a 61-year-old pleasant lady, came into the emergency room because of persistent nausea for the last 2 days' duration. She has been having severe dry heaves and it continued to progressively getting worse and came into the emergency room and subsequently was admitted to the hospital for further evaluation. She underwent antireflux urgency/hiatal hernia repair by Dr. Johnson in April of last year and in fact had done recently following the surgery. She got some ( ) last night in the emergency room and she felt a little bit better, but this morning, she continues to have dry heaves. Also developed some diarrhea since this morning, she had 2 loose bowel movements today. She denies any associated abdominal pain. No fever, chills. She did say she had a low-grade fever yesterday, but this morning, she is fine. Her past medical history is significant for asthma, diabetes mellitus, fibromyalgia, gastroesophageal reflux disease, hypertension, hyperlipidemia, skin disorder. PAST SURGICAL HISTORY: Appendectomy, breast surgery, cholecystectomy, tubal ligation, hiatal hernia repair, hysterectomy, bilateral salpingo-oophorectomy. Medications at home include Wellbutrin, Ventolin, Xanax, calcium, Pulmicort, Elavil, Lasix, Advair, Diflucan, Lexapro, Protonix, Singulair, magnesium oxide, NovoLog, Lyrica, Pravachol, Aldactone, Percocet, prednisone. Allergy to CEFTIN, CIPRO, ERYTHROMYCIN, BACTRIM, INDOCIN, PENICILLIN. SOCIAL HISTORY: No smoking. No alcohol use. FAMILY HISTORY: Mother has degenerative joint disease and breast cancer. Father had of suicide. REVIEW OF SYSTEMS: CARDIOPULMONARY: No chest pain or shortness of breath. GENITOURINARY: No dysuria or hematuria. MUSCULOSKELETAL: Unremarkable. SKIN: Unremarkable. ENDOCRINE: Unremarkable. PSYCHIATRIC: Unremarkable. NEUROLOGY: Unremarkable. ENT: Vision unremarkable. CONSTITUTIONAL: No recent weight loss. No fever, chills or night sweats. On physical examination, she appears comfortable. Blood pressure 116/64, pulse rate 90, temperature 99.4. HEENT: Examination unremarkable. Conjunctivae pink. Sclerae nonicteric. Oral cavity no lesions. NECK: No JVD or lymph node enlargement. Chest was clear to auscultation. HEART: Regular rate and rhythm. Abdomen is soft. It was nontender, nondistended. Liver and spleen were not palpable. Bowel sounds are positive. No organomegaly. EXTREMITIES: No pedal edema. SKIN: No rashes. NEURO: Alert and oriented x3. No focal deficits. Labs at the time of admission to the hospital: WBC 7.3, hemoglobin 13.3, platelets are 166, BUN 24, creatinine 0.8. ALT, AST, T-bili, alk phos are within normal limits. Amylase and lipase are normal. CT of the abdomen and pelvis done in the emergency room yesterday showed prominent small bowel fluid-filled loops suspicious for enteritis. There was small to moderate hiatal hernia also noted. IMPRESSION: This is a lady who presents to the hospital with severe dry heaves for the last 2 days' duration with ongoing nausea and she is status post [place] fundoplication by Dr. Johnson in April of 2016. Since then she has done reasonably well but intermittently has been developing the severe dry heaves, unable to have the emesis and becomes very uncomfortable. She also developed a little bit of diarrhea this morning and a CAT scan done yesterday in the ER did show thickening of the small bowel loops with mild dilation with fluid level suspicious for acute enteritis. Since, she was hydrated through the night she is feeling much better this morning. Her symptoms are responding with Zofran as needed. She was already evaluated by Dr. Dominguez who recommended no antibiotics at the present time. She does have prior history of common variable immunodeficiency for which she receives IVIG on an outpatient basis. RECOMMENDATIONS: 1. Start her on a clear liquid diet. 2. Continue with Zofran 8 mg every 6 hours as needed. 3. No reason for any endoscopic intervention at the present time. Will continue to follow the patient closely during her hospital stay. Thank you for this consultation.
[2016-09-10 13:19] LABS: Glucose,Whole Blood 109 mg/dL (75-99)
--- NOTE | 2016-09-10 13:49 | HP ---
DATE OF ADMISSION: 09/09/2016 PRESENTING COMPLAINT: Abdominal pain, diarrhea. HISTORY OF PRESENTING COMPLAINT: This is a pleasant 61-year-old patient followed up by Dr. Kothari. Patient's chronic stable medical conditions include asthma, diabetes mellitus type 2, fibromyalgia, GERD, hyperlipidemia, tracheomalacia, hemoglobulin deficiency, anxiety, depression. Patient presents with dry heaving all night, fever up to 101.9. The patient also developed abdominal discomfort, distention, pain and after getting here, patient started having multiple episodes of diarrhea. Patient has a chronic cough; otherwise, no change in his baseline respiratory symptoms. Denies any urinary symptoms. Patient's is at the bedside. REVIEW OF SYSTEMS: CONSTITUTIONAL: Tired. HEENT: None. RESPIRATORY: As above. CARDIOVASCULAR: None. GASTROINTESTINAL: As above. GENITOURINARY: None. MUSCULOSKELETAL: Aches in the joints. DERMATOLOGICAL: No bruising and tattoos. HEMATOLOGIC: None. LYMPHATICS: None. PSYCHIATRY: Anxiety, depression. NEUROLOGICAL: None. Past history of asthma, diabetes mellitus type 2, fibromyalgia, GERD, hyperlipidemia, tracheomalacia, immunoglobulin deficiency, compression fracture of the spine, anxiety, depression. 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 PAST SURGICAL HISTORY: Appendectomy, breast surgery, cholecystectomy, tubal ligation, multiple bronchoscopy with washings, blepharoplasty, Port-A-Cath in the right chest, right salpingo-fallopian tube removed. SOCIAL HISTORY: . Has got pet dogs in the home. No smoking or alcohol. Family history of breast cancer, open heart surgery. HOME MEDICATIONS: 1. Wellbutrin XL 450 mg p.o. daily. 2. Ventolin HFA 2 puffs q.i.d. p.r.n. 3. Xanax 0.25 p.o. t.i.d. 4. Calcium with vitamin D3 two tablets p.o. daily. 5. Pulmicort 0.5 nebulizer b.i.d. 6. Vitamin C 500 mg p.o. daily. 7. Elavil 30 mg p.o. q.h.s. 8. Immunoglobulin 1 dose IV piggyback q monthly. 9. Lasix 40 mg p.o. b.i.d. 10. Advair HFA 2 puffs b.i.d. 11. Diflucan p.r.n. 12. Lexapro 30 mg p.o. daily. 13. Potassium 60 mEq p.o. b.i.d. 14. Protonix 20 mg p.o. daily. 15. Singulair 10 mg p.o. q.h.s. 16. Magnesium oxide 400 mg p.o. daily. 17. Lyrica 75 mg p.o. t.i.d. 18. Pravachol 10 mg p.o. q.h.s. 19. Aldactone 25 mg p.o. t.i.d. 20. Prednisone 20 mg p.o. daily. 21. Percocet 10 one tablet p.o. b.i.d. Allergies to CEFTIN, CIPRO, NSAIDS, ERYTHROMYCIN, BACTRIM, INDOCIN, PENICILLIN, SULFA. On examination, T-max 101.9, pulse 113, respirations 18, blood pressure 108/52, pulse ox 95% on room air. GENERAL APPEARANCE: Cushingoid, BMI of 24.6. Sitting up, tired-appearing. EYES: Pupils equal. Conjunctivae normal. HEENT: External nose and ears normal. Oral cavity normal. NECK: JVD not raised. Mass not palpable. Respiratory effort normal. LUNGS: Slightly diminished breath sounds. CARDIOVASCULAR: First and second sounds normal. No edema. ABDOMEN: Slightly distended, mild diffuse tenderness. No guarding or rigidity. Liver and spleen not palpable. LYMPHATIC: No lymph nodes palpable in neck or axillae. PSYCHIATRY: Alert and oriented. Mood and affect slightly anxious-appearing. NEUROLOGICAL: Pupils equal. Cranial grossly intact. Power and sensation grossly intact. INVESTIGATIONS: White count 7.5, hemoglobin 13.3, potassium 4.2, BUN 24, creatinine 0.82. UA negative. Chest x-ray no obvious infiltrate. CT scan of the abdomen and pelvis shows prominent fluid-filled small bowel loops in the mid and lower abdomen with liquid stool in the right hemicolon. Moderate solid stool in the remainder of the left hemicolon. ASSESSMENT: 1. This is a patient who presents with a sepsis picture, likely acute enteritis. Given persistent nausea and diarrhea that ensued following coming to the hospital. This could only be explained from viral and could be bacterial too, given the patient's immunocompromised state. 2. 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 3. Moderate persistent asthma. 4. Diabetes mellitus type 2, chronically on insulin pump. 5. Chronic fibromyalgia. 6. Gastroesophageal reflux disease. 7. Hyperlipidemia. 8. Tracheobronchomalacia. 9. Anxiety, depression, not otherwise specified. PLAN: Patient's home medications are resumed. Will put the patient on a stress doses of steroids, Infectious Disease, Dr. Dominguze was consulted. Patient diarrhea started on his own and that could well a viral self-limiting condition, though with a sepsis-like picture. Patient definitely given fluid boluses. Care was discussed with the patient and and discussed in detail.
--- NOTE | 2016-09-10 15:13 | P.CNPUL ---
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 The patient is well-known to me as of a taking care of her for many years. Fortunately condition is been essentially stable and she was doing well up to around 48 hours ago and she developed nausea associated with dry heaves. She developed increased amount of discomfort in her abdomen and she reports some occasional cramping. No hematemesis. No diarrhea. No bright red blood per rectum. She had a spike of temperature of 11.0. She presented to the hospital where she was found to be hemodynamically stable. She underwent a CAT scan of the abdomen and pelvis and it showed prominent fluid-filled small bowel loops in the mid and the lower abdomen without abnormal bowel dilatation. Liquid stool is present within the right hemicolon and moderate stool in the left hemicolon. No pericolonic inflammatory changes seen. There is a short segment of circumferential annular narrowing along the proximal transverse colon and also in the ascending colon. No mesenteric or retroperitoneal lymphadenopathy. The bladder was distended with urine. No pelvic lymphadenopathy or masses. The bones showed subacute displaced fracture of the right inferior pubic ramus with some callus formation. Mild degenerative changes at the hips. Mild anterior wedge fracture of the T11 and T12 which has a chronic appearance. Note that the patient was somewhat dehydrated at time of admission. She got resuscitated IV fluids and currently she is feeling better. Her nausea and dry heaves has essentially recovered. She is tolerating soft diet at this point. Cultures have been sent and the results are still pending for now. No positive cultures have been obtained. The patient was placed on stress dose hydrocortisone it does 100 mg IV every 8 hours. She is on Lovenox for DVT prophylaxis. Respiratory status is stable. No cough sputum production. No chest that is so wheezing. No change in mental status. Review of Systems Further review of system was done and the positive findings are almost above in history of present illness Past Medical History Past Medical History: Asthma, Diabetes Mellitus, Eye Disorder, Fibromyalgia, GERD/Reflux, Hyperlipidemia, Hypertension, Musculoskeletal Disorder, Pneumonia, Respiratory Disorder, Skin Disorder Additional Past Medical History / Comment(s): Bronchial asthma, tracheobronchomalacia, common variable immunoglobulin deficiency and the patient used to have frequent bouts of pneumonias in the past according multiple bronchoscopies including infections with Serratia marcescens and these pneumonia is improved after she was placed on IVIG,(LAST INFUSION AFTER ) chronic steroid use, suspected component of adrenal insufficiency due to chronic steroid use, 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 Dominguez from infectious disease, cataracts, glaucoma, fibromyalgia, chronic pain, compression fracture of the spine, History of Any Multi-Drug Resistant Organisms: MRSA Date of last positivie culture/infection: 2010 MDRO Source:: right hand Past Surgical History: Appendectomy, Breast Surgery, Cholecystectomy, Tubal Ligation Additional Past Surgical History / Comment(s): MULT BRONCHS, WASHINGS, LAST 04/17. EXC [facility] CATARACT. BLEPHAROPLASTY/ R&L BREAST BIOPSIES; PORT A CATH IN RIGHT CHEST-MYCOBACTERIUM AREAS RT ARM 2011; UPPER TEETH EXTRACTED. RT SALPINGECTOMY/FALLOPIAN TUBE REMOVED, I&D BOIL.Jul [facility] EYE AND MUSCLE SURGERY; - mouth (bone) surgery Past Anesthesia/Blood Transfusion Reactions: Motion Sickness, Postoperative Nausea & Vomiting (PONV) Past Psychological History: Anxiety, Depression Additional Psychological History / Comment(s): . Lives in the family home with her . Not employed outside of the home. Lifelong nonsmoker. No significant history of alcohol use. No history of recreational drug use. No international travels. There are pet dogs in the home. They're still chilled in the home that they are responsible for. Smoking Status: Never smoker Past Alcohol Use History: None Reported Past Drug Use History: None Reported - Past Family History Mother Family Medical History: Cancer Additional Family Medical History / Comment(s): HAD OPEN HEART SURGERY, BREAST CANCER Father Additional Family Medical History / Comment(s): r/t suicide Medications and Allergies Home Medications Medication Instructions Recorded Confirmed Type Escitalopram [Lexapro] 30 mg PO QAM 01/01/14 09/09/16 History Furosemide [Lasix] 40 mg PO BID 01/01/14 09/09/16 History Insulin Aspart [NovoLOG] See Protocol SQ CONTINUOUS 01/01/14 09/09/16 History Montelukast [Singulair] 10 mg PO HS 01/01/14 09/09/16 History Spironolactone [Aldactone] 25 mg PO TID 01/01/14 09/09/16 History ALPRAZolam [Xanax] 0.25 mg PO TID 01/02/14 09/09/16 History Calcium Citrate/Vitamin D3 2 tab PO DAILY 04/17/14 09/09/16 History [Calcium Citrate - Vit D3 Tab] Magnesium Oxide [Mag-Ox] 400 mg PO DAILY 09/25/14 09/09/16 History Potassium Chloride ER [K-Dur 20] 60 meq PO BID 11/06/14 09/09/16 History Amitriptyline HCl [Elavil] 30 mg PO HS 12/07/14 09/09/16 History Ascorbic Acid [Vitamin C] 500 mg PO DAILY 12/07/14 09/09/16 History Vitamin B Complex 1 tab PO DAILY 12/07/14 09/09/16 History Albuterol Sulfate [Ventolin HFA] 2 puff INHALATION RT-QID PRN 05/12/15 09/09/16 History Immunoglobulin 1 dose IVPB QMONTH 05/12/15 09/09/16 History Fluconazole [Diflucan] 100 mg PO DAILY PRN 07/06/15 09/09/16 History Pregabalin [Lyrica] 75 mg PO TID 05/06/16 09/09/16 History Pantoprazole Sodium [Protonix] 20 mg PO DAILY 05/07/16 09/09/16 History Prialt 1 dose INTRATHECA DIRECTED 08/04/16 09/09/16 History Budesonide [Pulmicort] 0.5 mg INHALATION RT-BID 09/09/16 09/09/16 History Fluticasone/Salmeterol [Advair Hfa 2 puff INHALATION RT-BID 09/09/16 09/09/16 History 230-21 Mcg Inhaler] Pravastatin Sodium [Pravachol] 10 mg PO HS 09/09/16 09/09/16 History buPROPion XL [Wellbutrin Xl] 450 mg PO DAILY 09/09/16 09/09/16 History oxyCODONE-APAP 10-325MG [Percocet 1 tab PO BID 09/09/16 09/09/16 History 10-325 mg] predniSONE 20 mg PO DAILY 09/09/16 09/09/16 History Allergies Allergy/AdvReac Type Severity Reaction Status Date / Time cefuroxime axetil Allergy Severe Abdominal Verified 09/09/16 08:06 [From Ceftin] Pain ciprofloxacin HCl Allergy Severe Abdominal Verified 09/09/16 08:06 [From Cipro] Pain NSAIDS (Non-Steroidal Allergy Dyspnea Verified 09/09/16 08:06 Anti-Inflamma erythromycin base AdvReac Unknown Abdominal Verified 09/09/16 08:06 [Erythromycin Base] Pain sulfamethoxazole AdvReac Unknown Abdominal Verified 09/09/16 08:06 [From Bactrim] Pain trimethoprim [From Bactrim] AdvReac Unknown Abdominal Verified 09/09/16 08:06 Pain indomethacin [From Indocin] AdvReac Confusion Verified 09/09/16 08:06 indomethacin sodium AdvReac Confusion Verified 09/09/16 08:06 [From Indocin] Penicillins AdvReac Nausea & Verified 09/09/16 08:06 Vomiting Sulfa (Sulfonamide AdvReac Abdominal Verified 09/09/16 08:06 Antibiotics) Pain Physical Exam Vitals: Vital Signs Temp Pulse Pulse Pulse Resp BP Pulse Ox 09/10/16 08:32 88 09/10/16 08:18 84 09/10/16 08:00 96 90 20 09/10/16 07:00 99.4 F 90 20 116/64 92 L 09/10/16 00:00 96 18 09/09/16 23:15 100 09/09/16 23:06 100 09/09/16 23:00 99.0 F 96 18 136/63 94 L 09/09/16 20:28 96 09/09/16 20:11 104 H 09/09/16 16:13 99.1 F 108 H 20 94/54 96 09/09/16 15:23 101.3 F H Intake and Output 09/10/16 09/10/16 09/10/16 06:59 14:59 22:59 Intake Total 520 1140 Balance 520 1140 Intake: Intake, IV Titration 900 Amount Dextrose 10% in Water 500 100 ml In Empty Bag 1 bag @ 100 mls/hr IV .Q5H [facility] Rx #:[id number] Sodium Chloride 0.9% 1, 800 000 ml @ 150 mls/hr IV . Q6H40M [facility] Rx#:[id number] Oral 520 240 Other: Voiding Method Toilet Bedside Commode # Voids 1 Head exam was generally normal. There was no scleral icterus or corneal arcus. Mucous membranes were moist.Neck was supple and without jugular venous distension, thyromegaly, or carotid bruits. Carotids were easily palpable bilaterally. There was no adenopathy. The patient is edentulous. Examination of the lungs shows thoracic kyphosis. Rest although diminished in lung bases and there are some scattered rhonchi and extremity wheezes heard bilaterally.Cardiac exam revealed the PMI to be normally situated and sized. The rhythm was regular and no extrasystoles were noted during several minutes of auscultation. The first and second heart sounds were normal and physiologic splitting of the second heart sound was noted. There were no murmurs, rubs, clicks, or gallops.Abdominal exam revealed normal bowel sounds. The abdomen was soft, non-tender, and without masses, organomegaly, or appreciable enlargement of the abdominal aorta.Examination of the extremities revealed easily palpable radial, femoral and pedal pulses. There was no cyanosis, clubbing or edema. Results - Laboratory Findings CBC and BMP: 09/09/16 09:35 09/09/16 09:35 Abnormal lab findings: Abnormal Labs 09/09/16 09/09/16 09/10/16 16:59 21:05 01:19 POC Glucose (mg/dL) 73 L 63 L 72 L 09/10/16 09/10/16 09/10/16 02:24 05:20 06:01 POC Glucose (mg/dL) 63 L 66 L 66 L 09/10/16 09/10/16 09/10/16 07:04 07:21 13:17 POC Glucose (mg/dL) 63 L 53 L 109 H Assessment and Plan Plan: Assessment 1 gastroenteritis, likely viral, currently inactive in stable and the patient is a improving. 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 Dominguez from infectious disease, 8 cataracts, 9 glaucoma, 10 fibromyalgia, 11 chronic pain, 12 compression fracture of the spine, 13 diabetes mellitus currently on insulin pump for blood sugar control Plan Continue the fluid resuscitation. Restart 22 mg of prednisone and discontinued the hydrocortisone in a.m. Outpatient medication will be ordered resume. No need for antibiotics. Monitor cultures. Discharge home after adequate fluid resuscitation in a.m.
--- NOTE | 2016-09-10 15:26 | P.PN ---
Subjective Principal diagnosis: Fever with retching 61-year-old female presents to the emergency center with several hour history of nausea associated with dry heaves. She developed increasing amounts of discomfort because of her inability to take her medications. She Presented to the Emergency Center. There There Was Concern for Some Dehydration As Well As Her Abdominal Status. She Did Have a Fever of At Least 101 and Calcium Was Admitted to Hospital after a Dose of Antibiotic Therapy for Further Intervention. She at This Time Relates That She's Feeling Somewhat Better. Still Has No Appetite. Has Had No Further Retching for the Last Multiple Hours. She Is Still Feeling Somewhat Weak. Emanuel takes the medication and is definitely some food without further retching. Hours developed copious amounts of diarrhea. Not surprising given the amount of stool that was seen on the computed tomography scan. Because of the diarrhea C. diff testing was performed and is negative. Objective - Vital Signs Vital signs: Vital Signs Temp 98.7 F 09/10/16 15:00 Pulse 84 09/10/16 15:00 Resp 20 09/10/16 15:00 BP 110/56 09/10/16 15:00 Pulse Ox 95 09/10/16 15:00 Intake & Output 09/09/16 09/10/16 09/10/16 18:59 06:59 18:59 Intake Total 1270 1140 Balance 1270 1140 Weight 61 kg Intake: Intake, IV Titration 900 Amount Dextrose 10% in Water 500 100 ml In Empty Bag 1 bag @ 100 mls/hr IV .Q5H [facility] Rx #:[id number] Sodium Chloride 0.9% 1, 800 000 ml @ 150 mls/hr IV . Q6H40M [facility] Rx#:[id number] Oral 1270 240 Other: Voiding Method Toilet Bedside Commode # Voids 1 - Exam Gen: This is a 61-year-old female. . Patient is very talkative and able to clearly relate the circumstances bringing her to the hospital. HEENT: Head is atraumatic, normocephalic. Pupils equal, round. Sclerae is anicteric. Conjunctiva pink. His membranes of the mouth are slightly dry. Dentures are in place NECK: Supple. No JVD. No lymphadenopathy. No thyromegaly. LUNGS: Scattered rhonchi throughout. No intercostal retractions. HEART: Regular rate and rhythm. No murmur. Port noted to the right upper anterior chest wall. No redness or tenderness. ABDOMEN: Soft. Bowel sounds are present. No masses. some mild generalized abdominal tenderness. EXTREMITIES: No pedal edema. No calf tenderness. Dorsalis pedis is +2 bilaterally. NEUROLOGICAL: Patient is awake, alert and oriented x3 - Labs CBC & Chem 7: 09/09/16 09:35 09/09/16 09:35 Labs: Abnormal Lab Results - Last 24 Hours (Table) 09/09/16 09/09/16 09/10/16 Range/Units 16:59 21:05 01:19 POC Glucose (mg/dL) 73 L 63 L 72 L (75-99) mg/dL 09/10/16 09/10/16 09/10/16 Range/Units 02:24 05:20 06:01 POC Glucose (mg/dL) 63 L 66 L 66 L (75-99) mg/dL 09/10/16 09/10/16 09/10/16 Range/Units 07:04 07:21 13:17 POC Glucose (mg/dL) 63 L 53 L 109 H (75-99) mg/dL Laboratory Results WBC 7.5 k/uL (3.8-10.6) 09/09/16 09:35 RBC 5.09 m/uL (3.80-5.40) 09/09/16 09:35 Hgb 13.3 gm/dL (11.4-16.0) 09/09/16 09:35 Hct 42.5 % (34.0-46.0) 09/09/16 09:35 MCV 83.5 fL (80.0-100.0) 09/09/16 09:35 MCH 26.1 pg (25.0-35.0) 09/09/16 09:35 MCHC 31.2 g/dL (31.0-37.0) 09/09/16 09:35 RDW 16.6 % (11.5-15.5) H 09/09/16 09:35 Plt Count 166 k/uL (150-450) 09/09/16 09:35 Neutrophils % 91 % 09/09/16 09:35 Lymphocytes % 4 % 09/09/16 09:35 Monocytes % 4 % 09/09/16 09:35 Eosinophils % 1 % 09/09/16 09:35 Basophils % 0 % 09/09/16 09:35 Neutrophils # 6.9 k/uL (1.3-7.7) 09/09/16 09:35 Lymphocytes # 0.3 k/uL (1.0-4.8) L 09/09/16 09:35 Monocytes # 0.3 k/uL (0-1.0) 09/09/16 09:35 Eosinophils # 0.0 k/uL (0-0.7) 09/09/16 09:35 Basophils # 0.0 k/uL (0-0.2) 09/09/16 09:35 Hypochromasia Moderate 09/09/16 09:35 Anisocytosis Slight 09/09/16 09:35 Sodium 140 mmol/L (137-145) 09/09/16 09:35 Potassium 4.2 mmol/L (3.5-5.1) 09/09/16 09:35 Chloride 103 mmol/L (98-107) 09/09/16 09:35 Carbon Dioxide 28 mmol/L (22-30) 09/09/16 09:35 Anion Gap 9 mmol/L 09/09/16 09:35 BUN 24 mg/dL (7-17) H 09/09/16 09:35 Creatinine 0.82 mg/dL (0.52-1.04) 09/09/16 09:35 Est GFR (MDRD) Af Amer >60 (>60 ml/min/1.73 sqM) 09/09/16 09:35 Est GFR (MDRD) Non-Af >60 (>60 ml/min/1.73 sqM) 09/09/16 09:35 Glucose 111 mg/dL (74-99) H 09/09/16 09:35 POC Glucose (mg/dL) 109 mg/dL (75-99) H 09/10/16 13:17 POC Glu Silicator ID Deborah Maciel 09/10/16 13:17 Plasma Lactic Acid Geovanni 1.3 mmol/L (0.7-2.0) 09/09/16 14:44 Calcium 8.2 mg/dL (8.4-10.2) L 09/09/16 09:35 Total Bilirubin 0.3 mg/dL (0.2-1.3) 09/09/16 09:35 AST 44 U/L (14-36) H 09/09/16 09:35 ALT 51 U/L (9-52) 09/09/16 09:35 Alkaline Phosphatase 67 U/L (38-126) 09/09/16 09:35 Total Protein 6.3 g/dL (6.3-8.2) 09/09/16 09:35 Albumin 3.5 g/dL (3.5-5.0) 09/09/16 09:35 Amylase 51 U/L (30-110) 09/09/16 09:35 Lipase 64 U/L (23-300) 09/09/16 09:35 Urine Color Yellow 09/09/16 09:35 Urine Appearance Clear (Clear) 09/09/16 09:35 Urine pH 8.5 (5.0-8.0) H 09/09/16 09:35 Ur Specific [place] 1.017 (1.001-1.035) 09/09/16 09:35 Urine Protein Trace (Negative) H 09/09/16 09:35 Urine Glucose (UA) Negative (Negative) 09/09/16 09:35 Urine Ketones Negative (Negative) 09/09/16 09:35 Urine Blood Negative (Negative) 09/09/16 09:35 Urine Nitrate Negative (Negative) 09/09/16 09:35 Urine Bilirubin Negative (Negative) 09/09/16 09:35 Urine Urobilinogen <2.0 mg/dL (<2.0) 09/09/16 09:35 Ur Leukocyte Esterase Negative (Negative) 09/09/16 09:35 C. difficile (EIA) Intrp Negative (Negative) 09/09/16 09:15 Microbiology 09/09/16 13:00 Urine,Voided Urine Culture - Preliminary Assessment and Plan (1) Intractable nausea and vomiting Narrative/Plan: 61-year-old woman who has common variable deficiency presents to Hospital with the onset of nausea and retching. She has a history of indecent fundoplication and really can't have significant emesis. She Overfelt very poorly and became more dehydrated and having increasing amounts of pain due to inability to take her medications. S2 present to the emergency room. There she had evidence of fever which is now resolved. She's feeling better this evening with fluid and hydration. Pain control is been difficult because of inability to take her pills and is hoping to have some further pain control at this time. She is at this time related severe headache and generalized malaise with the retching her upper abdomen and lower chest is uncomfortable. No acute severe changes on the exam are noted at this time. Plan will be to continue hydration and antibiotic therapy is on hold without evidence of significant infection.. Monitor urinary output. Change her Percocet to 4 times a day for now until she has some further stabilization. The patient needs follow-up with her specialist pain physician in the near future to determine with her next best options will be. Fever has resolved no further antibiotics at this time. Lactic acid is normal. Urine culture is negative. Concern that she may have had a viral gastroenteritis is the etiology of her current illness and because of her immunocompromised status she's had a significant reaction. Status: Acute (2) CVID (common variable immunodeficiency) Status: Acute (3) Fever Status: Acute (4) Enteritis Status: Acute
[2016-09-10 17:20] LABS: Glucose,Whole Blood 130 mg/dL (75-99)
[2016-09-10] MEDS: MAG HYDROX/AL HYDROX/SIMETH 30 ML CUP PO PRN (21:07)
[2016-09-10] MEDS: AMITRIPTYLINE HCL 10 MG TAB PO SCH (21:08)
[2016-09-10] MEDS: MONTELUKAST 10 MG TAB PO SCH (21:08)
[2016-09-10] MEDS: PRAVASTATIN SODIUM 20 MG TAB PO SCH (21:08)
[2016-09-10 21:38] LABS: Glucose,Whole Blood 127 mg/dL (75-99)
[2016-09-10] MEDS: traZODone HCL 50 MG TAB PO SCH (23:12)
[2016-09-11 02:18] LABS: Glucose,Whole Blood 98 mg/dL (75-99)
[2016-09-11] MEDS: SODIUM CHLORIDE 0.9% 1,000 ML IV SCH ×3 (04:08→17:21)
[2016-09-11 05:53] LABS: Glucose,Whole Blood 50 mg/dL (75-99)
[2016-09-11 06:02] LABS: Glucose,Whole Blood 53 mg/dL (75-99)
[2016-09-11] MEDS: MAG HYDROX/AL HYDROX/SIMETH 30 ML CUP PO PRN (06:05)
[2016-09-11] MEDS ORDERED: DEXTROSE 50%-WATER 50 ML SYRINGE IVP ONE (06:19)
[2016-09-11 06:33] LABS: Glucose,Whole Blood 46 mg/dL (75-99)
[2016-09-11 06:33] LABS: Glucose,Whole Blood 124 mg/dL (75-99)
[2016-09-11] MEDS: ENOXAPARIN 40 MG/0.4 ML SYRINGE SQ SCH (07:55)
[2016-09-11] MEDS: PANTOPRAZOLE 40 MG TABLET PO SCH (07:56)
[2016-09-11] MEDS: SPIRONOLACTONE 25 MG TAB PO SCH ×3 (07:56→21:30)
[2016-09-11] MEDS: ALPRAZolam 0.25 MG TAB PO SCH ×3 (07:56→21:30)
[2016-09-11] MEDS: POTASSIUM CHLORIDE ER 20 MEQ TAB.ER PO SCH ×2 (07:56→20:15)
[2016-09-11] MEDS: FUROSEMIDE 40 MG TAB PO SCH ×2 (07:56→17:10)
[2016-09-11] MEDS: buPROPion XL 150 MG TAB.ER.24H PO SCH (07:57)
[2016-09-11] MEDS: PREGABALIN 75 MG CAP PO SCH ×3 (07:57→21:30)
[2016-09-11] MEDS: ESCITALOPRAM 10 MG TAB PO SCH (07:57)
[2016-09-11] MEDS: oxyCODONE-APAP 10-325MG 1 EACH TAB PO PRN ×2 (07:58→18:58)
[2016-09-11] MEDS: HYDROCORTISONE SUCCINATE 100 MG/2 ML VIAL IV SCH (08:03)
[2016-09-11 08:11] LABS: Anisocytosis Slight; Basophils % (A) 0 %; CH 25.8; CHCM 30.3; Eosinophils % (A) 1 %; HCT 35.6 % (34.0-46.0); HDW 3.09; HGB 10.6 gm/dL (11.4-16.0); Hypochromasia Marked; Luc # (Auto) 0.08; Luc % (Auto) 3; Lymphocytes # (A) 0.9 k/uL (1.0-4.8); Lymphocytes % (A) 30 %; MCH 25.6 pg (25.0-35.0); MCHC 29.9 g/dL (31.0-37.0); MCV 85.6 fL (80.0-100.0); Mean Platelet Volume 8.5; Monocytes # (A) 0.2 k/uL (0-1.0); Monocytes % (A) 8 %; Neutrophils # (A) 1.6 k/uL (1.3-7.7); Neutrophils % (A) 58 %; RBC 4.15 m/uL (3.80-5.40); RDW 16.8 % (11.5-15.5); WBC 2.8 k/uL (3.8-10.6)
[2016-09-11] MEDS: ALBUTEROL NEBULIZED 2.5 MG/3 ML INHALATION PRN ×2 (08:38→19:44)
[2016-09-11] MEDS: SYMBICORT 160-4.5 MCG INHALER INHALATION SCH ×2 (08:38→19:46)
[2016-09-11 08:39] LABS: Anion Gap 9 mmol/L; Blood Urea Nitrogen 4 mg/dL (7-17); Carbon Dioxide 24 mmol/L (22-30); Chloride 112 mmol/L (98-107); Glucose 107 mg/dL (74-99); Non-African American GFR(MDRD) >60 (>60 ml/min/1.73 sqM); Potassium 3.3 mmol/L (3.5-5.1); Sodium 145 mmol/L (137-145)
[2016-09-11 08:44] LABS: Calcium 6.1 mg/dL (8.4-10.2)
--- NOTE | 2016-09-11 09:22 | XR ---
EXAMINATION TYPE: XR abdomen 2V DATE OF EXAM: 09/11/2016 9:13 AM CLINICAL HISTORY: Abdominal pain with nausea and vomiting TECHNIQUE: Supine and upright views of the abdomen are obtained. COMPARISON: Abdominal x-ray as well as CT abdomen and pelvis from 2 days earlier FINDINGS: Gas remains present in nondistended stomach. Scattered gas is seen in non-distended small bowel loops. Gas is seen in non-distended colon. There is interval improvement in air-fluid levels versus prior studies. No pneumoperitoneum is present. External device overlies the left lower quadrant. Cholecystectomy cli ps are seen. There are scattered pelvic phleboliths and vascular calcification. Tubular density overl ies right femoral head. There is patchy left basilar atelectasis and/or infiltrate redemonstrated. Ca rdiac silhouette size is upper limits of normal but felt stable. IMPRESSION: Overall nonspecific felt to be nonobstructive bowel gas pattern remains present.
--- NOTE | 2016-09-11 10:17 | P.GSCN ---
History of Present Illness Consult date: 09/10/16 Reason for Consult: Abdominal pain Requesting physician: Gamal Canchola History of present illness: 61 years old female presenting with abdominal distention, cramps and bloating. She has regular bowel movements, occasional diarrhea. She complains of increasing flatulence. No abdominal pain. Patient has multiple comorbid conditions including congenital immunodeficiency syndrome,type 1 diabetes mellitus on insulin pump, chronic pain, hypertension, fibromyalgia. She had colonoscopy less than 5 years ago. Status post Brandon fundoplication for GERD. Denies any vomiting but has increasing retching Review of Systems Constitutional: Denies fever, weight loss or loss of appetite HEENT: No difficulty in vision or hearing. Denies dysphagia. Cardiovascular: Denies chest pain, palpitations, dizziness, shortness of breath. Respiratory: No cough or shortness of breath Genitourinary: No urinary incontinence, hematuria or dysuria Neurologic: No seizures, denies weakness in upper or lower extremities Past Medical History Past Medical History: Asthma, Diabetes Mellitus, Eye Disorder, Fibromyalgia, GERD/Reflux, Hyperlipidemia, Hypertension, Musculoskeletal Disorder, Pneumonia, Respiratory Disorder, Skin Disorder Additional Past Medical History / Comment(s): Bronchial asthma, tracheobronchomalacia, common variable immunoglobulin deficiency and the patient used to have frequent bouts of pneumonias in the past according multiple bronchoscopies including infections with Serratia marcescens and these pneumonia is improved after she was placed on IVIG,(LAST INFUSION AFTER ) chronic steroid use, suspected component of adrenal insufficiency due to chronic steroid use, 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 Dominguez from infectious disease, cataracts, glaucoma, fibromyalgia, chronic pain, compression fracture of the spine, History of Any Multi-Drug Resistant Organisms: MRSA Year Discovered:: 2010 MDRO Source:: right hand Past Surgical History: Appendectomy, Breast Surgery, Cholecystectomy, Tubal Ligation Additional Past Surgical History / Comment(s): MULT BRONCHS, WASHINGS, LAST 04/17. EXC [facility] CATARACT. BLEPHAROPLASTY/ R&L BREAST BIOPSIES; PORT A CATH IN RIGHT CHEST-MYCOBACTERIUM AREAS RT ARM 2011; UPPER TEETH EXTRACTED. RT SALPINGECTOMY/FALLOPIAN TUBE REMOVED, I&D BOIL.Jul [facility] EYE AND MUSCLE SURGERY; - mouth (bone) surgery Past Anesthesia/Blood Transfusion Reactions: Motion Sickness, Postoperative Nausea & Vomiting (PONV) Past Psychological History: Anxiety, Depression Additional Psychological History / Comment(s): . Lives in the family home with her . Not employed outside of the home. Lifelong nonsmoker. No significant history of alcohol use. No history of recreational drug use. No international travels. There are pet dogs in the home. They're still chilled in the home that they are responsible for. Smoking Status: Never smoker Past Alcohol Use History: None Reported Past Drug Use History: None Reported - Past Family History Mother Family Medical History: Cancer Additional Family Medical History / Comment(s): HAD OPEN HEART SURGERY, BREAST CANCER Father Additional Family Medical History / Comment(s): r/t suicide Medications and Allergies Home Medications Medication Instructions Recorded Confirmed Type Escitalopram [Lexapro] 30 mg PO QAM 01/01/14 09/09/16 History Furosemide [Lasix] 40 mg PO BID 01/01/14 09/09/16 History Insulin Aspart [NovoLOG] See Protocol SQ CONTINUOUS 01/01/14 09/09/16 History Montelukast [Singulair] 10 mg PO HS 01/01/14 09/09/16 History Spironolactone [Aldactone] 25 mg PO TID 01/01/14 09/09/16 History ALPRAZolam [Xanax] 0.25 mg PO TID 01/02/14 09/09/16 History Calcium Citrate/Vitamin D3 2 tab PO DAILY 04/17/14 09/09/16 History [Calcium Citrate - Vit D3 Tab] Magnesium Oxide [Mag-Ox] 400 mg PO DAILY 09/25/14 09/09/16 History Potassium Chloride ER [K-Dur 20] 60 meq PO BID 11/06/14 09/09/16 History Amitriptyline HCl [Elavil] 30 mg PO HS 12/07/14 09/09/16 History Ascorbic Acid [Vitamin C] 500 mg PO DAILY 12/07/14 09/09/16 History Vitamin B Complex 1 tab PO DAILY 12/07/14 09/09/16 History Albuterol Sulfate [Ventolin HFA] 2 puff INHALATION RT-QID PRN 05/12/15 09/09/16 History Immunoglobulin 1 dose IVPB QMONTH 05/12/15 09/09/16 History Fluconazole [Diflucan] 100 mg PO DAILY PRN 07/06/15 09/09/16 History Pregabalin [Lyrica] 75 mg PO TID 05/06/16 09/09/16 History Pantoprazole Sodium [Protonix] 20 mg PO DAILY 05/07/16 09/09/16 History Prialt 1 dose INTRATHECA DIRECTED 08/04/16 09/09/16 History Budesonide [Pulmicort] 0.5 mg INHALATION RT-BID 09/09/16 09/09/16 History Fluticasone/Salmeterol [Advair Hfa 2 puff INHALATION RT-BID 09/09/16 09/09/16 History 230-21 Mcg Inhaler] Pravastatin Sodium [Pravachol] 10 mg PO HS 09/09/16 09/09/16 History buPROPion XL [Wellbutrin Xl] 450 mg PO DAILY 09/09/16 09/09/16 History oxyCODONE-APAP 10-325MG [Percocet 1 tab PO BID 09/09/16 09/09/16 History 10-325 mg] predniSONE 20 mg PO DAILY 09/09/16 09/09/16 History traZODone HCL [TraZODone HCl] 75 mg PO HS 09/10/16 09/10/16 History Allergies Allergy/AdvReac Type Severity Reaction Status Date / Time cefuroxime axetil Allergy Severe Abdominal Verified 09/09/16 08:06 [From Ceftin] Pain ciprofloxacin HCl Allergy Severe Abdominal Verified 09/09/16 08:06 [From Cipro] Pain NSAIDS (Non-Steroidal Allergy Dyspnea Verified 09/09/16 08:06 Anti-Inflamma erythromycin base AdvReac Unknown Abdominal Verified 09/09/16 08:06 [Erythromycin Base] Pain sulfamethoxazole AdvReac Unknown Abdominal Verified 09/09/16 08:06 [From Bactrim] Pain trimethoprim [From Bactrim] AdvReac Unknown Abdominal Verified 09/09/16 08:06 Pain indomethacin [From Indocin] AdvReac Confusion Verified 09/09/16 08:06 indomethacin sodium AdvReac Confusion Verified 09/09/16 08:06 [From Indocin] Penicillins AdvReac Nausea & Verified 09/09/16 08:06 Vomiting Sulfa (Sulfonamide AdvReac Abdominal Verified 09/09/16 08:06 Antibiotics) Pain Surgical - Exam Vital Signs Temp Pulse Resp BP Pulse Ox 98.6 F 100 20 107/54 99 09/09/16 08:05 09/09/16 08:05 09/09/16 08:05 09/09/16 08:05 09/09/16 08:05 General: Patient is alert and oriented to time, place and person and cooperative with exam. HEENT: No pallor, no icterus, no thyroid enlargement Chest: Bilateral equal breath sounds present. No wheezes, no crackles. Cardiovascular: Regular rate and rhythm. Abdomen: Soft, nontender, nondistended. Integumentar. No active ulcers or discharge. Neurologic: Cranial nerves II-XII intact. Strength upper and lower extremities 5/5. No focal neurologic deficits. Gait is normal. Psychiatric: No anxiety or psychosis. Results - Labs 09/11/16 07:44 09/11/16 07:44 Abnormal Lab Results - Last 24 Hours (Table) 09/10/16 09/10/16 09/10/16 Range/Units 07:04 07:21 13:17 POC Glucose (mg/dL) 63 L 53 L 109 H (75-99) mg/dL 09/10/16 09/10/16 09/11/16 Range/Units 17:13 21:13 05:33 POC Glucose (mg/dL) 130 H 127 H 50 L (75-99) mg/dL 09/11/16 09/11/16 09/11/16 Range/Units 05:54 06:17 06:27 POC Glucose (mg/dL) 53 L 46 L 124 H (75-99) mg/dL - Imaging CT scan - abdomen: report reviewed Assessment and Plan (1) CVID (common variable immunodeficiency) Status: Acute (2) Retching Status: Acute (3) Hypertension Status: Chronic Plan: 1. Nonspecific abdominal symptoms. Computed tomography scan reviewed. No evidence of acute surgical abdomen 2. Patient is tolerating diet. 3. Advance diet as tolerated 4. No surgical intervention at this time
[2016-09-11 11:25] LABS: Glucose,Whole Blood 89 mg/dL (75-99)
[2016-09-11] MEDS: CALCIUM CARB-VIT D 500MG-200UN 1 EACH TAB PO SCH (11:43)
[2016-09-11] MEDS: B COMPLEX-VIT C-VIT E-ZINC 1 EACH TAB PO SCH (11:43)
[2016-09-11] MEDS: ASCORBIC ACID 500 MG TAB PO SCH (11:45)
[2016-09-11] MEDS: MAGNESIUM OXIDE 400 MG TAB PO SCH (11:46)
[2016-09-11 12:12] LABS: Glucose,Whole Blood 99 mg/dL (75-99)
[2016-09-11] MEDS ORDERED: HYDROCORTISONE SUCCINATE 100 MG/2 ML VIAL IV STA (12:32)
[2016-09-11] MEDS: ONDANSETRON 4 MG/2 ML VIAL IVP PRN ×2 (13:36→18:48)
[2016-09-11] MEDS ORDERED: HYDROCORTISONE SUCCINATE 100 MG/2 ML VIAL IV SCH (16:00)
[2016-09-11] MEDS ORDERED: HYOSCYAMINE ORAL DROPS 1.875 MG/15 ML BOTTLE SUBLINGUAL PRN (16:42)
[2016-09-11] MEDS: HYOSCYAMINE 0.125 MG SUBLINGUAL PRN (17:19)
[2016-09-11 17:34] LABS: Glucose,Whole Blood 117 mg/dL (75-99)
[2016-09-11] MEDS: AMITRIPTYLINE HCL 10 MG TAB PO SCH (20:13)
[2016-09-11] MEDS: PRAVASTATIN SODIUM 20 MG TAB PO SCH (20:13)
[2016-09-11] MEDS: MONTELUKAST 10 MG TAB PO SCH (20:13)
[2016-09-11] MEDS: traZODone HCL 50 MG TAB PO SCH (20:14)
[2016-09-11 21:03] LABS: Glucose,Whole Blood 123 mg/dL (75-99)
--- NOTE | 2016-09-11 22:25 | PN ---
DATE OF SERVICE: 09/11/2016 PRESENTING COMPLAINT: Abdominal pain, diarrhea. INTERVAL HISTORY: This patient admitted to the hospital with what appears to be acute enteritis. Nausea is better. Patient's appetite is still not good. Nauseous settled down. No further diarrhea. Abdominal pain is much better. Patient had refused to take IV hydrocortisone this morning. at the bedside. Does feel weak. Review of systems done for constitutional, cardiovascular, GI, pulmonary; relevant findings as above. Current medications are reviewed. On examination, temperature 98.8, pulse 81, respiratory rate 16, blood pressure 107/62, pulse ox 93% on room air. GENERAL APPEARANCE: Sitting up, tired-appearing, cushingoid. EYES: Pupils equal. Conjunctivae normal. NECK: JVD not raised. Mass not palpable. RESPIRATORY: Effort normal. LUNGS: Slightly decreased breath sounds. CARDIOVASCULAR: First and second sounds normal. No edema. ABDOMEN: Soft, minimal tenderness. Bowel sounds are present. PSYCHIATRY: Alert and oriented x3. Mood slightly anxious appearing. INVESTIGATIONS: White count 2.8, hemoglobin 10.6, platelets 118, potassium 3.3. ASSESSMENT: 1. Acute enteritis, likely viral self-limiting. 2. Common variable immunodeficiency with immunodeficiency state. 3. Moderate persistent asthma. 4. Diabetes mellitus type 2, chronically on insulin pump. 5. Chronic insulin pump, which has currently been held off. 6. Chronic fibromyalgia. 7. Gastroesophageal reflux disease. 8. Hyperlipidemia. 9. Acute tracheobronchomalacia. 10. Anxiety, depression, not otherwise specified. 11. Hypoglycemia from decreased oral intake. PLAN: I had a long talk with the patient and . Did tell him the importance of IV hydrocortisone. ( ) crisis. The patient ( ) take the IV hydrocortisone, will decrease the dose of the same. Also is concerned about hypoglycemia as this patient hardly eating right now. We will keep the patient and monitor her more closely. Encouraged to be out of bed. Other medication and treatment plan is to continue. Total time spent today was about 35 to 40 minutes with over 20 minutes of discussion.
--- NOTE | 2016-09-11 22:35 | P.PN ---
Subjective Principal diagnosis: Fever with retching 61-year-old female presents to the emergency center with several hour history of nausea associated with dry heaves. She developed increasing amounts of discomfort because of her inability to take her medications. She Presented to the Emergency Center. There There Was Concern for Some Dehydration As Well As Her Abdominal Status. She Did Have a Fever of At Least 101 and Calcium Was Admitted to Hospital after a Dose of Antibiotic Therapy for Further Intervention. She at This Time Relates That She's Feeling Somewhat Better. Still Has No Appetite. Has Had No Further Retching for the Last Multiple Hours. She Is Still Feeling Somewhat Weak. Emanuel takes the medication and is definitely some food without further retching. Hours developed copious amounts of diarrhea. Not surprising given the amount of stool that was seen on the computed tomography scan. Because of the diarrhea C. diff testing was performed and is negative. Was feeling better except for her chronic pain. And then developed some further nausea and some retching the day today. Some alteration of her medications is performed and she does see some hydrocortisone. She actually refused a few doses which may have worsened her status. Objective - Vital Signs Vital signs: Vital Signs Temp 98.5 F 09/11/16 15:00 Pulse 77 09/11/16 20:00 Resp 16 09/11/16 15:00 BP 130/71 09/11/16 15:00 Pulse Ox 92 L 09/11/16 15:00 Intake & Output 09/11/16 09/11/16 09/12/16 06:59 18:59 06:59 Intake Total 500 Balance 500 Intake: Oral 500 Other: Voiding Method Toilet Toilet Bedside Commode # Voids 2 2 - Exam Gen: This is a 61-year-old female. . Patient is very talkative and able to clearly relate the circumstances bringing her to the hospital. HEENT: Head is atraumatic, normocephalic. Pupils equal, round. Sclerae is anicteric. Conjunctiva pink. His membranes of the mouth are slightly dry. Dentures are in place NECK: Supple. No JVD. No lymphadenopathy. No thyromegaly. LUNGS: Scattered rhonchi throughout. No intercostal retractions. HEART: Regular rate and rhythm. No murmur. Port noted to the right upper anterior chest wall. No redness or tenderness. ABDOMEN: Soft. Bowel sounds are present. No masses. some mild generalized abdominal tenderness. EXTREMITIES: No pedal edema. No calf tenderness. Dorsalis pedis is +2 bilaterally. NEUROLOGICAL: Patient is awake, alert and oriented x3 - Labs CBC & Chem 7: 09/11/16 07:44 09/11/16 07:44 Labs: Abnormal Lab Results - Last 24 Hours (Table) 09/11/16 09/11/16 09/11/16 Range/Units 05:33 05:54 06:17 WBC (3.8-10.6) k/uL Hgb (11.4-16.0) gm/dL MCHC (31.0-37.0) g/dL RDW (11.5-15.5) % Plt Count (150-450) k/uL Lymphocytes # (1.0-4.8) k/uL Potassium (3.5-5.1) mmol/L Chloride (98-107) mmol/L BUN (7-17) mg/dL Glucose (74-99) mg/dL POC Glucose (mg/dL) 50 L 53 L 46 L (75-99) mg/dL Calcium (8.4-10.2) mg/dL 09/11/16 09/11/16 09/11/16 Range/Units 06:27 07:44 07:44 WBC 2.8 L (3.8-10.6) k/uL Hgb 10.6 L (11.4-16.0) gm/dL MCHC 29.9 L (31.0-37.0) g/dL RDW 16.8 H (11.5-15.5) % Plt Count 118 L (150-450) k/uL Lymphocytes # 0.9 L (1.0-4.8) k/uL Potassium 3.3 L (3.5-5.1) mmol/L Chloride 112 H (98-107) mmol/L BUN 4 L (7-17) mg/dL Glucose 107 H (74-99) mg/dL POC Glucose (mg/dL) 124 H (75-99) mg/dL Calcium 6.1 L* (8.4-10.2) mg/dL 09/11/16 09/11/16 Range/Units 17:32 21:01 WBC (3.8-10.6) k/uL Hgb (11.4-16.0) gm/dL MCHC (31.0-37.0) g/dL RDW (11.5-15.5) % Plt Count (150-450) k/uL Lymphocytes # (1.0-4.8) k/uL Potassium (3.5-5.1) mmol/L Chloride (98-107) mmol/L BUN (7-17) mg/dL Glucose (74-99) mg/dL POC Glucose (mg/dL) 117 H 123 H (75-99) mg/dL Calcium (8.4-10.2) mg/dL Laboratory Results WBC 2.8 k/uL (3.8-10.6) L 09/11/16 07:44 RBC 4.15 m/uL (3.80-5.40) 09/11/16 07:44 Hgb 10.6 gm/dL (11.4-16.0) L 09/11/16 07:44 Hct 35.6 % (34.0-46.0) 09/11/16 07:44 MCV 85.6 fL (80.0-100.0) 09/11/16 07:44 MCH 25.6 pg (25.0-35.0) 09/11/16 07:44 MCHC 29.9 g/dL (31.0-37.0) L 09/11/16 07:44 RDW 16.8 % (11.5-15.5) H 09/11/16 07:44 Plt Count 118 k/uL (150-450) L 09/11/16 07:44 Neutrophils % 58 % 09/11/16 07:44 Lymphocytes % 30 % 09/11/16 07:44 Monocytes % 8 % 09/11/16 07:44 Eosinophils % 1 % 09/11/16 07:44 Basophils % 0 % 09/11/16 07:44 Neutrophils # 1.6 k/uL (1.3-7.7) 09/11/16 07:44 Lymphocytes # 0.9 k/uL (1.0-4.8) L 09/11/16 07:44 Monocytes # 0.2 k/uL (0-1.0) 09/11/16 07:44 Eosinophils # 0.0 k/uL (0-0.7) 09/11/16 07:44 Basophils # 0.0 k/uL (0-0.2) 09/11/16 07:44 Hypochromasia Marked 09/11/16 07:44 Anisocytosis Slight 09/11/16 07:44 Sodium 145 mmol/L (137-145) 09/11/16 07:44 Potassium 3.3 mmol/L (3.5-5.1) L 09/11/16 07:44 Chloride 112 mmol/L (98-107) H 09/11/16 07:44 Carbon Dioxide 24 mmol/L (22-30) 09/11/16 07:44 Anion Gap 9 mmol/L 09/11/16 07:44 BUN 4 mg/dL (7-17) L 09/11/16 07:44 Creatinine 0.58 mg/dL (0.52-1.04) 09/11/16 07:44 Est GFR (MDRD) Af Amer >60 (>60 ml/min/1.73 sqM) 09/11/16 07:44 Est GFR (MDRD) Non-Af >60 (>60 ml/min/1.73 sqM) 09/11/16 07:44 Glucose 107 mg/dL (74-99) H 09/11/16 07:44 POC Glucose (mg/dL) 123 mg/dL (75-99) H 09/11/16 21:01 POC Glu Twister Doffer FREDERICK [place] 09/11/16 21:01 Plasma Lactic Acid Geovanni 1.3 mmol/L (0.7-2.0) 09/09/16 14:44 Calcium 6.1 mg/dL (8.4-10.2) L* 09/11/16 07:44 Total Bilirubin 0.3 mg/dL (0.2-1.3) 09/09/16 09:35 AST 44 U/L (14-36) H 09/09/16 09:35 ALT 51 U/L (9-52) 09/09/16 09:35 Alkaline Phosphatase 67 U/L (38-126) 09/09/16 09:35 Total Protein 6.3 g/dL (6.3-8.2) 09/09/16 09:35 Albumin 3.5 g/dL (3.5-5.0) 09/09/16 09:35 Amylase 51 U/L (30-110) 09/09/16 09:35 Lipase 64 U/L (23-300) 09/09/16 09:35 Urine Color Yellow 09/09/16 09:35 Urine Appearance Clear (Clear) 09/09/16 09:35 Urine pH 8.5 (5.0-8.0) H 09/09/16 09:35 Ur Specific [place] 1.017 (1.001-1.035) 09/09/16 09:35 Urine Protein Trace (Negative) H 09/09/16 09:35 Urine Glucose (UA) Negative (Negative) 09/09/16 09:35 Urine Ketones Negative (Negative) 09/09/16 09:35 Urine Blood Negative (Negative) 09/09/16 09:35 Urine Nitrate Negative (Negative) 09/09/16 09:35 Urine Bilirubin Negative (Negative) 09/09/16 09:35 Urine Urobilinogen <2.0 mg/dL (<2.0) 09/09/16 09:35 Ur Leukocyte Esterase Negative (Negative) 09/09/16 09:35 C. difficile (EIA) Intrp Negative (Negative) 09/09/16 09:15 Microbiology 09/09/16 13:38 Blood Blood Culture - Preliminary No Growth after 48 hours 09/09/16 13:00 Urine,Voided Urine Culture - Final Assessment and Plan (1) Intractable nausea and vomiting Narrative/Plan: 61-year-old woman who has common variable deficiency presents to Hospital with the onset of nausea and retching. She has a history of indecent fundoplication and really can't have significant emesis. She Overfelt very poorly and became more dehydrated and having increasing amounts of pain due to inability to take her medications. S2 present to the emergency room. There she had evidence of fever which is now resolved. She's feeling better this evening with fluid and hydration. Pain control is been difficult because of inability to take her pills and is hoping to have some further pain control at this time. She is at this time related severe headache and generalized malaise with the retching her upper abdomen and lower chest is uncomfortable. No acute severe changes on the exam are noted at this time. Plan will be to continue hydration and antibiotic therapy is on hold without evidence of significant infection.. Monitor urinary output. Change her Percocet to 4 times a day for now until she has some further stabilization. The patient needs follow-up with her specialist pain physician in the near future to determine with her next best options will be. Fever has resolved no further antibiotics at this time. Lactic acid is normal. Urine culture is negative. Concern that she may have had a viral gastroenteritis is the etiology of her current illness and because of her immunocompromised status she's had a significant reaction. Was seen by surgery with no evidence of an acute abdomen. No other acute findings. With the hydrocortisone she's feeling better. We transitioned to oral and likely discharged home tomorrow. 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 Status: Acute (2) CVID (common variable immunodeficiency) Status: Acute (3) Fever Status: Acute (4) Enteritis Status: Acute
[2016-09-12] MEDS: SODIUM CHLORIDE 0.9% 1,000 ML IV SCH ×4 (00:20→20:10)
[2016-09-12 01:55] LABS: Glucose,Whole Blood 108 mg/dL (75-99)
[2016-09-12 04:52] LABS: Glucose,Whole Blood 73 mg/dL (75-99)
[2016-09-12] MEDS: oxyCODONE-APAP 10-325MG 1 EACH TAB PO PRN ×4 (05:40→20:10)
[2016-09-12 05:41] LABS: Glucose,Whole Blood 61 mg/dL (75-99)
[2016-09-12] MEDS: ONDANSETRON 4 MG/2 ML VIAL IVP PRN ×3 (05:41→17:05)
[2016-09-12 06:13] LABS: Glucose,Whole Blood 84 mg/dL (75-99)
[2016-09-12 06:34] LABS: Glucose,Whole Blood 97 mg/dL (75-99)
[2016-09-12 07:39] LABS: Glucose,Whole Blood 81 mg/dL (75-99)
[2016-09-12] MEDS: ALBUTEROL NEBULIZED 2.5 MG/3 ML INHALATION PRN ×2 (07:41→20:13)
[2016-09-12] MEDS: SYMBICORT 160-4.5 MCG INHALER INHALATION SCH ×2 (07:41→20:14)
[2016-09-12] MEDS: ALPRAZolam 0.25 MG TAB PO SCH ×3 (07:53→21:30)
[2016-09-12] MEDS: MAG HYDROX/AL HYDROX/SIMETH 30 ML CUP PO PRN (07:53)
[2016-09-12] MEDS: buPROPion XL 150 MG TAB.ER.24H PO SCH (07:54)
[2016-09-12] MEDS: ENOXAPARIN 40 MG/0.4 ML SYRINGE SQ SCH (07:54)
[2016-09-12] MEDS: HYOSCYAMINE 0.125 MG SUBLINGUAL PRN ×3 (07:54→16:57)
[2016-09-12] MEDS: PREGABALIN 75 MG CAP PO SCH ×3 (07:55→21:33)
[2016-09-12] MEDS: POTASSIUM CHLORIDE ER 20 MEQ TAB.ER PO SCH ×2 (07:55→21:31)
[2016-09-12] MEDS: PANTOPRAZOLE 40 MG TABLET PO SCH (07:55)
[2016-09-12] MEDS: ESCITALOPRAM 10 MG TAB PO SCH (07:55)
[2016-09-12] MEDS: SPIRONOLACTONE 25 MG TAB PO SCH ×3 (07:56→21:31)
[2016-09-12] MEDS: FUROSEMIDE 40 MG TAB PO SCH ×2 (07:56→16:58)
[2016-09-12] MEDS: predniSONE 20 MG TAB PO SCH (07:56)
[2016-09-12] MEDS: B COMPLEX-VIT C-VIT E-ZINC 1 EACH TAB PO SCH (11:58)
[2016-09-12] MEDS: CALCIUM CARB-VIT D 500MG-200UN 1 EACH TAB PO SCH (11:58)
[2016-09-12] MEDS: MAGNESIUM OXIDE 400 MG TAB PO SCH (11:58)
[2016-09-12] MEDS: ASCORBIC ACID 500 MG TAB PO SCH (11:59)
[2016-09-12 12:15] LABS: Glucose,Whole Blood 154 mg/dL (75-99)
--- NOTE | 2016-09-12 12:34 | P.PN ---
Subjective Principal diagnosis: Nausea vomiting 61-year-old female admitted with intractable nausea vomiting diarrhea possible enteritis reevaluated today in regards to his complaints. Patient feels better. No diarrhea nausea or vomiting. Afebrile. Objective - Vital Signs Vital signs: Vital Signs Temp 98.6 F 09/12/16 07:00 Pulse 78 09/12/16 08:00 Resp 20 09/12/16 07:00 BP 106/75 09/12/16 07:00 Pulse Ox 96 09/12/16 07:00 Intake & Output 09/11/16 09/12/16 09/12/16 18:59 06:59 18:59 Intake Total 500 1650 Balance 500 1650 Intake: IV 1650 Sodium Chloride 0.9% 1, 1650 000 ml @ 150 mls/hr IV . Q6H40M FOR[facility]LY [facility], 1928–1983 Rx#:[id number] Oral 500 Other: Voiding Method Toilet Toilet # Voids 2 2 - Exam General appearance: The patient is alert, oriented, in no acute distress. HET: Head is normocephalic and atraumatic. Pupils are equal and reactive. Oropharynx is clear without lesions. Neck: Supple without lymphadenopathy. Trachea midline. Heart: S1 S2. Regular rate and rhythm. Chest wall Port-A-Cath without erythema or drainage. Lungs: No crackles or wheezes are heard. Abdomen: Soft, nontender, nondistended with bowel sounds. No peritoneal signs. No palpable organomegaly or masses. Extremities: Normal skin color and turgor. No cyanosis, rash, ulceration, clubbing, or edema. Radial and pedal pulses are 2/4 bilaterally. Neurological: No focal deficits. Strength and sensation are grossly intact. - Labs CBC & Chem 7: 09/11/16 07:44 09/11/16 07:44 Labs: Abnormal Lab Results - Last 24 Hours (Table) 09/11/16 09/11/16 09/12/16 Range/Units 17:32 21:01 01:54 POC Glucose (mg/dL) 117 H 123 H 108 H (75-99) mg/dL 09/12/16 09/12/16 09/12/16 Range/Units 04:51 05:40 12:13 POC Glucose (mg/dL) 73 L 61 L 154 H (75-99) mg/dL Assessment and Plan Plan: Impression: 1. 61-year-old female admitted with intractable nausea vomiting diarrhea possible enteritis with a history of Brandon fundoplication and common variable immunodeficiency with clinical improvement. Plan: 1. Advance diet as tolerated. 2. Continue with Bentyl and Zofran as needed. 3. We'll follow as needed. Endoscopy not planned at this time. Assessment and plan of care discussed with Dr. Burch.
--- NOTE | 2016-09-12 12:59 | P.PN ---
Subjective This is a very pleasant 61-year-old female patient well-known to Dr. 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 She developed nausea associated with dry heaves. She developed increased amount of discomfort in her abdomen and she reports some occasional cramping. No hematemesis. No diarrhea. No bright red blood per rectum. She had a spike of temperature of 101.0. She presented to the hospital where she was found to be hemodynamically stable. She underwent a CAT scan of the abdomen and pelvis and it showed prominent fluid-filled small bowel loops in the mid and the lower abdomen without abnormal bowel dilatation. Liquid stool is present within the right hemicolon and moderate stool in the left hemicolon. No pericolonic inflammatory changes seen. There is a short segment of circumferential annular narrowing along the proximal transverse colon and also in the ascending colon. No mesenteric or retroperitoneal lymphadenopathy. The bladder was distended with urine. No pelvic lymphadenopathy or masses. The bones showed subacute displaced fracture of the right inferior pubic ramus with some callus formation. Mild degenerative changes at the hips. Note that the patient was somewhat dehydrated at time of admission. She got resuscitated IV fluids and currently she is feeling better. Her nausea and dry heaves has essentially recovered. She is tolerating soft diet at this point. She is seen again today 09/12/2016 in follow-up. She is awake and alert in no acute distress. She has recovered and is anxious to go home. No pulmonary complaints. Objective - Vital Signs Vital signs: Vital Signs Temp 98.6 F 09/12/16 07:00 Pulse 78 09/12/16 08:00 Resp 20 09/12/16 07:00 BP 106/75 09/12/16 07:00 Pulse Ox 96 09/12/16 07:00 Intake & Output 09/11/16 09/12/16 09/12/16 18:59 06:59 18:59 Intake Total 500 1650 Balance 500 1650 Intake: IV 1650 Sodium Chloride 0.9% 1, 1650 000 ml @ 150 mls/hr IV . Q6H40M [facility] Rx#:[id number] Oral 500 Other: Voiding Method Toilet Toilet # Voids 2 2 - Exam GENERAL EXAM: Alert, active, comfortable in no apparent distress. HEAD: Normocephalic. EYES: Normal reaction of pupils, equal size. NOSE: Clear with pink turbinates. THROAT: No erythema or exudates. NECK: No masses, no JVD. CHEST: No chest wall deformity. Right subclavian Port-A-Cath in place. LUNGS: Equal air entry with no crackles, wheeze, rhonchi or dullness. CVS: S1 and S2 normal with no audible murmurs, regular rhythm. ABDOMEN: No hepatosplenomegaly, normal bowel sounds, no guarding or rigidity. SPINE: Thoracic kyphosis. SKIN: No rashes CENTRAL NERVOUS SYSTEM: No focal deficits, tone is normal in all 4 extremities. Extremities: There is no significant peripheral edema. No clubbing, no cyanosis. Peripheral pulses are intact. - Labs CBC & Chem 7: 09/11/16 07:44 09/11/16 07:44 Labs: Abnormal Lab Results - Last 24 Hours (Table) 09/11/16 09/11/16 09/12/16 Range/Units 17:32 21:01 01:54 POC Glucose (mg/dL) 117 H 123 H 108 H (75-99) mg/dL 09/12/16 09/12/16 09/12/16 Range/Units 04:51 05:40 12:13 POC Glucose (mg/dL) 73 L 61 L 154 H (75-99) mg/dL Assessment and Plan Plan: Impression: 1 gastroenteritis, likely viral, currently inactive in stable and the patient is a improving. 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 Dominguez from infectious disease, 8 cataracts, 9 glaucoma, 10 fibromyalgia, 11 chronic pain, 12 compression fracture of the spine, 13 diabetes mellitus currently on insulin pump for blood sugar control. Plan: The patient was seen and evaluated by Dr. Valdes. She is stable from the pulmonary standpoint. She could be discharged home on her usual dose of prednisone and will follow-up with Dr. Kothari in our office.
[2016-09-12 14:26] LABS: Glucose,Whole Blood 183 mg/dL (75-99)
[2016-09-12 16:56] LABS: Glucose,Whole Blood 134 mg/dL (75-99)
--- NOTE | 2016-09-12 20:32 | PN ---
DATE OF SERVICE: 09/12/2016 PRESENTING COMPLAINT: Nausea. INTERVAL HISTORY: This patient presented with acute enteritis. Nausea is a greatly improved. Appetite is getting better. She was doing better. No further diarrhea. Abdominal discomfort is somewhat much better. Patient looks like actually better. at the bedside. Patient concerned about going home, what if she gets sick. Review of systems done for constitutional, cardiovascular, GI, pulmonary; relevant findings as above. Current medications are reviewed. On examination, temperature 98.6, pulse 93, respirations 18, blood pressure 121/60, pulse ox 95% on room air. GENERAL APPEARANCE: Sitting up in a chair, comfortable. ( ). EYES: Pupils equal, conjunctivae normal. NECK: JVD not raised. Mass not palpable. RESPIRATORY: Effort normal. LUNGS: Slightly decreased breath sounds. CARDIOVASCULAR: First and second sounds normal. No edema. ABDOMEN: Soft, nontender. Liver and spleen not palpable. PSYCHIATRY: Alert and oriented x3. Mood and affect normal. INVESTIGATIONS: Accu-Cheks are noted. ASSESSMENT: 1. Acute enteritis likely viral self-limiting clinically responded. 2. Nausea probably from above getting better. 3. Common variable immune deficiency ( ) chronic immune deficiency state. 4. Moderate persistent asthma, stable. 5. Diabetes mellitus type 2, chronically on insulin pump, currently off. 6. Chronic fibromyalgia. 7. Gastroesophageal reflux disease. 8. Hyperlipidemia. 9. Chronic tracheobronchomalacia. 10. Anxiety, depression, not otherwise specified. 11. Hyperglycemia, decreased oral intake improving. PLAN: I had a lengthy talk with the patient, reassured, did tell her that we had to ( ) staying in the hospital with significant infection. Did talk to about diet at length. She is somewhat reluctant about going home today it seems. We will watch her and see how she does. I saw the patient earlier this morning.
[2016-09-12 20:45] LABS: Glucose,Whole Blood 96 mg/dL (75-99)
[2016-09-12] MEDS: AMITRIPTYLINE HCL 10 MG TAB PO SCH (21:29)
[2016-09-12] MEDS: PRAVASTATIN SODIUM 20 MG TAB PO SCH (21:30)
[2016-09-12] MEDS: traZODone HCL 50 MG TAB PO SCH (21:31)
[2016-09-12] MEDS: MONTELUKAST 10 MG TAB PO SCH (21:33)
[2016-09-12] MEDS: METOCLOPRAMIDE 5 MG TAB PO SCH (21:38)
--- NOTE | 2016-09-12 22:19 | P.PN ---
Subjective Principal diagnosis: Fever with retching 61-year-old female presents to the emergency center with several hour history of nausea associated with dry heaves. She developed increasing amounts of discomfort because of her inability to take her medications. She Presented to the Emergency Center. There There Was Concern for Some Dehydration As Well As Her Abdominal Status. She Did Have a Fever of At Least 101 and Calcium Was Admitted to Hospital after a Dose of Antibiotic Therapy for Further Intervention. She at This Time Relates That She's Feeling Somewhat Better. Still Has No Appetite. Has Had No Further Retching for the Last Multiple Hours. She Is Still Feeling Somewhat Weak. Emanuel takes the medication and is definitely some food without further retching. Hours developed copious amounts of diarrhea. Not surprising given the amount of stool that was seen on the computed tomography scan. Because of the diarrhea C. diff testing was performed and is negative. Was feeling better except for her chronic pain. And then developed some further nausea and some retching Some alteration of her medications is performed and she does see some hydrocortisone. She actually refused a few doses which may have worsened her status. Now feeling remarkably better. Now feels remarkably better an insulin pump will be started with hopefully discharge in the morning. Objective - Vital Signs Vital signs: Vital Signs Temp 98.6 F 09/12/16 15:00 Pulse 78 09/12/16 20:25 Resp 18 09/12/16 15:00 BP 121/61 09/12/16 15:00 Pulse Ox 95 09/12/16 15:00 Intake & Output 09/12/16 09/12/16 09/13/16 06:59 18:59 06:59 Intake Total 1650 Balance 1650 Intake: IV 1650 Sodium Chloride 0.9% 1, 1650 000 ml @ 150 mls/hr IV . Q6H40M [facility] Rx#:[id number] Other: Voiding Method Toilet Toilet # Voids 2 3 - Exam Gen: This is a 61-year-old female. . Patient is very talkative and able to clearly relate the circumstances bringing her to the hospital. HEENT: Head is atraumatic, normocephalic. Pupils equal, round. Sclerae is anicteric. Conjunctiva pink. His membranes of the mouth are slightly dry. Dentures are in place NECK: Supple. No JVD. No lymphadenopathy. No thyromegaly. LUNGS: Scattered rhonchi throughout. No intercostal retractions. HEART: Regular rate and rhythm. No murmur. Port noted to the right upper anterior chest wall. No redness or tenderness. ABDOMEN: Soft. Bowel sounds are present. No masses. some mild generalized abdominal tenderness. EXTREMITIES: No pedal edema. No calf tenderness. Dorsalis pedis is +2 bilaterally. NEUROLOGICAL: Patient is awake, alert and oriented x3 - Labs CBC & Chem 7: 09/11/16 07:44 09/11/16 07:44 Labs: Abnormal Lab Results - Last 24 Hours (Table) 09/12/16 09/12/16 09/12/16 Range/Units 01:54 04:51 05:40 POC Glucose (mg/dL) 108 H 73 L 61 L (75-99) mg/dL 09/12/16 09/12/16 09/12/16 Range/Units 12:13 14:24 16:54 POC Glucose (mg/dL) 154 H 183 H 134 H (75-99) mg/dL Laboratory Results WBC 2.8 k/uL (3.8-10.6) L 09/11/16 07:44 RBC 4.15 m/uL (3.80-5.40) 09/11/16 07:44 Hgb 10.6 gm/dL (11.4-16.0) L 09/11/16 07:44 Hct 35.6 % (34.0-46.0) 09/11/16 07:44 MCV 85.6 fL (80.0-100.0) 09/11/16 07:44 MCH 25.6 pg (25.0-35.0) 09/11/16 07:44 MCHC 29.9 g/dL (31.0-37.0) L 09/11/16 07:44 RDW 16.8 % (11.5-15.5) H 09/11/16 07:44 Plt Count 118 k/uL (150-450) L 09/11/16 07:44 Neutrophils % 58 % 09/11/16 07:44 Lymphocytes % 30 % 09/11/16 07:44 Monocytes % 8 % 09/11/16 07:44 Eosinophils % 1 % 09/11/16 07:44 Basophils % 0 % 09/11/16 07:44 Neutrophils # 1.6 k/uL (1.3-7.7) 09/11/16 07:44 Lymphocytes # 0.9 k/uL (1.0-4.8) L 09/11/16 07:44 Monocytes # 0.2 k/uL (0-1.0) 09/11/16 07:44 Eosinophils # 0.0 k/uL (0-0.7) 09/11/16 07:44 Basophils # 0.0 k/uL (0-0.2) 09/11/16 07:44 Hypochromasia Marked 09/11/16 07:44 Anisocytosis Slight 09/11/16 07:44 Sodium 145 mmol/L (137-145) 09/11/16 07:44 Potassium 3.3 mmol/L (3.5-5.1) L 09/11/16 07:44 Chloride 112 mmol/L (98-107) H 09/11/16 07:44 Carbon Dioxide 24 mmol/L (22-30) 09/11/16 07:44 Anion Gap 9 mmol/L 09/11/16 07:44 BUN 4 mg/dL (7-17) L 09/11/16 07:44 Creatinine 0.58 mg/dL (0.52-1.04) 09/11/16 07:44 Est GFR (MDRD) Af Amer >60 (>60 ml/min/1.73 sqM) 09/11/16 07:44 Est GFR (MDRD) Non-Af >60 (>60 ml/min/1.73 sqM) 09/11/16 07:44 Glucose 107 mg/dL (74-99) H 09/11/16 07:44 POC Glucose (mg/dL) 96 mg/dL (75-99) 09/12/16 20:37 POC Glu [employer] Supervisor ID Brenda Will 09/12/16 20:37 Plasma Lactic Acid Geovanni 1.3 mmol/L (0.7-2.0) 09/09/16 14:44 Calcium 6.1 mg/dL (8.4-10.2) L* 09/11/16 07:44 Total Bilirubin 0.3 mg/dL (0.2-1.3) 09/09/16 09:35 AST 44 U/L (14-36) H 09/09/16 09:35 ALT 51 U/L (9-52) 09/09/16 09:35 Alkaline Phosphatase 67 U/L (38-126) 09/09/16 09:35 Total Protein 6.3 g/dL (6.3-8.2) 09/09/16 09:35 Albumin 3.5 g/dL (3.5-5.0) 09/09/16 09:35 Amylase 51 U/L (30-110) 09/09/16 09:35 Lipase 64 U/L (23-300) 09/09/16 09:35 Urine Color Yellow 09/09/16 09:35 Urine Appearance Clear (Clear) 09/09/16 09:35 Urine pH 8.5 (5.0-8.0) H 09/09/16 09:35 Ur Specific Labelle 1.017 (1.001-1.035) 09/09/16 09:35 Urine Protein Trace (Negative) H 09/09/16 09:35 Urine Glucose (UA) Negative (Negative) 09/09/16 09:35 Urine Ketones Negative (Negative) 09/09/16 09:35 Urine Blood Negative (Negative) 09/09/16 09:35 Urine Nitrate Negative (Negative) 09/09/16 09:35 Urine Bilirubin Negative (Negative) 09/09/16 09:35 Urine Urobilinogen <2.0 mg/dL (<2.0) 09/09/16 09:35 Ur Leukocyte Esterase Negative (Negative) 09/09/16 09:35 C. difficile (EIA) Intrp Negative (Negative) 09/09/16 09:15 Microbiology 09/09/16 13:38 Blood Blood Culture - Preliminary No Growth after 72 hours 09/09/16 13:00 Urine,Voided Urine Culture - Final Assessment and Plan (1) Intractable nausea and vomiting Narrative/Plan: 61-year-old woman who has common variable deficiency presents to Hospital with the onset of nausea and retching. She has a history of indecent fundoplication and really can't have significant emesis. She Overfelt very poorly and became more dehydrated and having increasing amounts of pain due to inability to take her medications. S2 present to the emergency room. There she had evidence of fever which is now resolved. She's feeling better this evening with fluid and hydration. Pain control is been difficult because of inability to take her pills and is hoping to have some further pain control at this time. She is at this time related severe headache and generalized malaise with the retching her upper abdomen and lower chest is uncomfortable. No acute severe changes on the exam are noted at this time. Plan will be to continue hydration and antibiotic therapy is on hold without evidence of significant infection.. Monitor urinary output. Change her Percocet to 4 times a day for now until she has some further stabilization. The patient needs follow-up with her specialist pain physician in the near future to determine with her next best options will be. Fever has resolved no further antibiotics at this time. Lactic acid is normal. Urine culture is negative. Concern that she may have had a viral gastroenteritis is the etiology of her current illness and because of her immunocompromised status she's had a significant reaction. Was seen by surgery with no evidence of an acute abdomen. No other acute findings. With the hydrocortisone she's feeling better. We transitioned to oral and likely discharged home tomorrow. 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 Status: Acute (2) CVID (common variable immunodeficiency) Status: Acute (3) Fever Status: Acute (4) Enteritis Status: Acute
[2016-09-12 22:40] LABS: Glucose,Whole Blood 139 mg/dL (75-99)
[2016-09-13 02:09] LABS: Glucose,Whole Blood 93 mg/dL (75-99)
[2016-09-13 05:15] LABS: Glucose,Whole Blood 61 mg/dL (75-99)
[2016-09-13] MEDS: SODIUM CHLORIDE 0.9% 1,000 ML IV SCH ×2 (05:17→08:30)
[2016-09-13] MEDS: oxyCODONE-APAP 10-325MG 1 EACH TAB PO PRN ×3 (05:18→13:34)
[2016-09-13] MEDS: MAG HYDROX/AL HYDROX/SIMETH 30 ML CUP PO PRN ×2 (05:30→13:33)
[2016-09-13 05:48] LABS: Glucose,Whole Blood 79 mg/dL (75-99)
[2016-09-13 06:00] LABS: Glucose,Whole Blood 101 mg/dL (75-99)
[2016-09-13 07:25] VITALS: BP 114/57; RESP 20; TEMP 99
[2016-09-13 07:29] LABS: Glucose,Whole Blood 145 mg/dL (75-99)
[2016-09-13] MEDS: HYOSCYAMINE 0.125 MG SUBLINGUAL PRN ×2 (07:44→11:53)
[2016-09-13] MEDS: PREGABALIN 75 MG CAP PO SCH (07:45)
[2016-09-13] MEDS: ALPRAZolam 0.25 MG TAB PO SCH (07:45)
[2016-09-13] MEDS: buPROPion XL 150 MG TAB.ER.24H PO SCH (07:45)
[2016-09-13] MEDS: METOCLOPRAMIDE 5 MG TAB PO SCH (07:45)
[2016-09-13] MEDS: SPIRONOLACTONE 25 MG TAB PO SCH (07:46)
[2016-09-13] MEDS: POTASSIUM CHLORIDE ER 20 MEQ TAB.ER PO SCH (07:46)
[2016-09-13] MEDS: ESCITALOPRAM 10 MG TAB PO SCH (07:46)
[2016-09-13] MEDS: ENOXAPARIN 40 MG/0.4 ML SYRINGE SQ SCH (07:46)
[2016-09-13] MEDS: FUROSEMIDE 40 MG TAB PO SCH (07:47)
[2016-09-13] MEDS: PANTOPRAZOLE 40 MG TABLET PO SCH (08:30)
[2016-09-13] MEDS: SYMBICORT 160-4.5 MCG INHALER INHALATION SCH (08:46)
[2016-09-13] MEDS: ALBUTEROL NEBULIZED 2.5 MG/3 ML INHALATION PRN (08:46)
[2016-09-13] MEDS: predniSONE 20 MG TAB PO SCH (09:50)
[2016-09-13 10:06] LABS: Glucose,Whole Blood 93 mg/dL (75-99)
[2016-09-13 11:08] LABS: Anion Gap 10 mmol/L; Blood Urea Nitrogen 5 mg/dL (7-17); Calcium 8.4 mg/dL (8.4-10.2); Carbon Dioxide 28 mmol/L (22-30); Chloride 106 mmol/L (98-107); Glucose 109 mg/dL (74-99); Non-African American GFR(MDRD) >60 (>60 ml/min/1.73 sqM); Potassium 4.2 mmol/L (3.5-5.1); Sodium 144 mmol/L (137-145)
[2016-09-13] MEDS: B COMPLEX-VIT C-VIT E-ZINC 1 EACH TAB PO SCH (11:53)
[2016-09-13] MEDS: CALCIUM CARB-VIT D 500MG-200UN 1 EACH TAB PO SCH (11:53)
[2016-09-13] MEDS: MAGNESIUM OXIDE 400 MG TAB PO SCH (11:54)
[2016-09-13] MEDS: ASCORBIC ACID 500 MG TAB PO SCH (11:54)
[2016-09-13 11:55] LABS: Glucose,Whole Blood 138 mg/dL (75-99)
[2016-09-13 11:58] VITALS: PULSE 78
--- NOTE | 2016-09-14 09:14 | DS ---
DATE OF ADMISSION: 09/09/2016 DATE OF DISCHARGE: 09/13/2016 FINAL DIAGNOSES: 1. Acute antritis, likely viral, self-limiting. 2. Nausea from above. 3. 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 4. Moderate persistent asthma, stable. 5. Diabetes mellitus type 2, chronically on insulin pump. 6. Chronic fibromyalgia. 7. Gastroesophageal reflux disease. 8. Hyperlipidemia. 9. Chronic tracheobronchomalacia. 10. Anxiety, depression, not otherwise specified. 11. Hypoglycemia from decreased oral intake. HOSPITAL COURSE: This patient admitted with nausea, vomiting, abdominal pain, ( ( diarrhea felt to be antritis, doing much better by the time of discharge. Care was discussed in length with the patient and the . Many questions were answered. Currently the sugars are running low, pump has been held off. Patient has been given Humalog to a sliding scale and follow up with her material assistant, Dr. Ledesma in the next 48 hours. On exam, patient's lungs are clear. CARDIOVASCULAR: First and second sounds normal. ABDOMEN: Soft, nontender. DISCHARGE MEDICATIONS: 1. Lexapro 30 mg p.o. daily. 2. Lasix 40 mg p.o. b.i.d. 3. Humalog per scale 3 times a day. 4. Singulair 10 mg p.o. q.h.s. 5. Aldactone 25 mg p.o. t.i.d. 6. Xanax 0.25 p.o. t.i.d. 7. Calcium citrate. 8. Vitamin D3 two tablets p.o. daily. 9. Magnesium oxide 400 mg p.o. daily. 10. Potassium 60 mEq p.o. b.i.d. 11. Elavil 30 mg p.o. q.h.s. 12. Vitamin C 500 mg p.o. daily. 13. Vitamin B complex 1 tablet p.o. daily. 14. Ventolin HFA 2 puffs q.i.d. p.r.n. 15. Immunoglobulin injection every month. 16. Diflucan 100 mg a day. 17. Lyrica 75 mg t.i.d. 18. Protonix 20 mg p.o. daily. 19. Pulmicort 0.5 nebulizer b.i.d. 20. Advair 230/21 two puffs b.i.d. 21. Pravachol 10 mg q.h.s. 22. Wellbutrin XL 450 mg p.o. daily. 23. Percocet 10 one tablet p.o. b.i.d. 24. Prednisone 20 mg a day. 25. Trazodone 75 mg q.h.s. 26. Humalog per scale a.c. and at bedtime. 27. Reglan 5 mg p.o. t.i.d. p.r.n. Followed by Dr. Ledesma on 09/20/2016. Follow up with Dr. Kothari on 09/19/2016. DC planning including discussion more than 35 minutes.
== END 2016-09-13 13:59 | disposition home or self-care (01) | DRG 392 ==
LOC: EC 07:57 → 4MS4W 15:21
PROVIDERS: ADMIT Hospitalist; ATTEND Hospitalist
DX: A08.4 Viral intestinal infection, unspecified (principal); D83.9 Common variable immunodeficiency, unspecified; S32.591A Other specified fracture of right pubis, initial encounter for closed fracture; J39.8 Other specified diseases of upper respiratory tract; M48.50XA Collapsed vertebra, not elsewhere classified, site unspecified, initial encounter for fracture; E86.0 Dehydration; E11.9 Type 2 diabetes mellitus without complications; Z96.41 Presence of insulin pump (external) (internal); E78.5 Hyperlipidemia, unspecified; F32.9 Major depressive disorder, single episode, unspecified; F41.9 Anxiety disorder, unspecified; G89.29 Other chronic pain; H26.9 Unspecified cataract; H40.9 Unspecified glaucoma; I10 Essential (primary) hypertension; J45.40 Moderate persistent asthma, uncomplicated; K21.9 Gastro-esophageal reflux disease without esophagitis; M19.90 Unspecified osteoarthritis, unspecified site; M79.7 Fibromyalgia; M81.0 Age-related osteoporosis without current pathological fracture; Z79.4 Long term (current) use of insulin; Z79.52 Long term (current) use of systemic steroids; Z88.0 Allergy status to penicillin; Z88.1 Allergy status to other antibiotic agents; Z79.899 Other long term (current) drug therapy; Z88.6 Allergy status to analgesic agent; Z88.2 Allergy status to sulfonamides
CPT/HCPCS: 36415; 71020; 74000; 74020; 74177; 80048; 80053; 80299; 81003; 82150; 83605; 83690; 85025; 87040; 87086; 94640; 96361; 96365; 96375; 99285

== ENCOUNTER → 2016-11-13 | Outpatient (CLI) | payer BC ==
--- NOTE | 2016-11-13 09:53 | XR ---
EXAMINATION TYPE: XR thoraco lumbar junction DATE OF EXAM: 11/13/2016 9:47 AM COMPARISON: NONE HISTORY: Back pain TECHNIQUE: 2 views are submitted FINDINGS: Surgical clips in the right upper quadrant is noted. Scoliotic curvature and multilevel deg enerative disc disease seen with moderate compression deformity at the approximate level of T12 and e ndplate deformity of L1 of indeterminate age. A tiny metallic density seen overlying the T11-T12 soft tissues posteriorly at. Exact location is uncertain. Correlate clinically. IMPRESSION: 1. Age-indeterminate compression deformities T12 and L1 with degenerative disc disease involving the visualized vertebral column. 2. Tiny pinpoint metallic density overlying the soft tissues at the approximate level of T11-T12 of i ndeterminate location correlate clinically.
[2016-11-13 09:56] LABS: ALT 43 U/L (9-52); AST 44 U/L (14-36); Alkaline Phosphatase 79 U/L (38-126); Anion Gap 11 mmol/L; Blood Urea Nitrogen 20 mg/dL (7-17); Calcium 9.2 mg/dL (8.4-10.2); Carbon Dioxide 27 mmol/L (22-30); Chloride 102 mmol/L (98-107); Cholesterol 161 mg/dL (<200); Glucose 127 mg/dL (74-99); HDL Cholesterol 58 mg/dL (40-60); Non-African American GFR(MDRD) 57 (>60 ml/min/1.73 sqM); Potassium 4.1 mmol/L (3.5-5.1); Sodium 140 mmol/L (137-145); Total Bilirubin 0.5 mg/dL (0.2-1.3); Total Protein 6.8 g/dL (6.3-8.2); Triglycerides 136 mg/dL (<150)
== END | disposition home or self-care (01) ==
LOC: LABWHC1 08:46
PROVIDERS: ATTEND Internal Medicine Endocrinology, Diabetes & Metabolism
DX: G89.29 Other chronic pain (principal); E11.65 Type 2 diabetes mellitus with hyperglycemia
CPT/HCPCS: 36415; 72080; 80053; 80061; 82043

== ENCOUNTER 2017-01-26 18:23 | Emergency (ER) | payer BC ==
[2017-01-26 18:49] LABS: Glucose,Whole Blood 99 mg/dL (75-99)
[2017-01-26] MEDS ORDERED: SODIUM CHLORIDE 0.9% 1,000 ML IV STA (19:16)
[2017-01-26] MEDS ORDERED: MAG HYDROX/AL HYDROX/SIMETH 30 ML, HYOSCYAMINE ELIXIR 10 ML, CIMETIDINE HCL 300 MG, LID... PO STA ×4 (19:16)
--- NOTE | 2017-01-26 19:18 | ED ---
Abdominal Pain HPI - General Chief Complaint: Abdominal Pain Stated Complaint: vomiting, Time Seen by Provider: 01/26/17 19:04 Source: patient, RN notes reviewed Mode of arrival: wheelchair Limitations: no limitations - History of Present Illness Initial Comments: 61-year-old female presents to the emergency department with a chief complaint of abdominal pain. Patient states that this started today. Patient states is a flareup of her abdominal pain. Patient states she had hiatal hernia repair. Patient states that sometimes she gets a splint that she takes medication but she is nonradiating. Patient states this helped but she was concerned that she may need the GI cocktail and typically helps her an order for her to not to continue to flare. Patient states just this burning painful sensation from the abdomen. This is very common of her typical flareup. Patient states she has had nausea she does not vomit however. Patient denies any changes in bowel or bladder habits. Patient denies any recent fever, chills, shortness of breath, chest pain, back pain, vomiting, numbness or tingling, dysuria or hematuria, constipation or diarrhea, headaches or visual changes, or any other current symptoms. - Related Data Home Medications Medication Instructions Recorded Confirmed Escitalopram [Lexapro] 30 mg PO QAM 01/01/14 01/26/17 Furosemide [Lasix] 40 mg PO BID 01/01/14 01/26/17 Insulin Aspart [NovoLOG] See Protocol SQ CONTINUOUS 01/01/14 01/26/17 Montelukast [Singulair] 10 mg PO HS 01/01/14 01/26/17 Spironolactone [Aldactone] 25 mg PO TID 01/01/14 01/26/17 ALPRAZolam [Xanax] 0.25 mg PO TID 01/02/14 01/26/17 Calcium Citrate/Vitamin D3 2 tab PO DAILY 04/17/14 01/26/17 [Calcium Citrate - Vit D3 Tab] Magnesium Oxide [Mag-Ox] 400 mg PO DAILY 09/25/14 01/26/17 Potassium Chloride ER [K-Dur 20] 60 meq PO BID 11/06/14 01/26/17 Amitriptyline HCl [Elavil] 30 mg PO HS 12/07/14 01/26/17 Ascorbic Acid [Vitamin C] 500 mg PO DAILY 12/07/14 01/26/17 Vitamin B Complex 1 tab PO DAILY 12/07/14 01/26/17 Albuterol Sulfate [Ventolin HFA] 2 puff INHALATION RT-QID PRN 05/12/15 01/26/17 Immunoglobulin 1 dose IVPB QMONTH 05/12/15 01/26/17 Fluconazole [Diflucan] 100 mg PO DAILY PRN 07/06/15 01/26/17 Pregabalin [Lyrica] 75 mg PO TID 05/06/16 01/26/17 Pantoprazole Sodium [Protonix] 20 mg PO DAILY 05/07/16 01/26/17 Prialt 1 dose INTRATHECA DIRECTED 08/04/16 01/26/17 Budesonide [Pulmicort] 0.5 mg INHALATION RT-BID 09/09/16 01/26/17 Fluticasone/Salmeterol [Advair Hfa 2 puff INHALATION RT-BID 09/09/16 01/26/17 230-21 Mcg Inhaler] Pravastatin Sodium [Pravachol] 10 mg PO HS 09/09/16 01/26/17 oxyCODONE-APAP 10-325MG [Percocet 1 tab PO BID 09/09/16 01/26/17 10-325 mg] predniSONE 20 mg PO DAILY 09/09/16 01/26/17 traZODone HCL 75 mg PO HS 09/10/16 01/26/17 Allergies Allergy/AdvReac Type Severity Reaction Status Date / Time cefuroxime axetil Allergy Severe Abdominal Verified 01/26/17 19:23 [From Ceftin] Pain ciprofloxacin HCl Allergy Severe Abdominal Verified 01/26/17 19:23 [From Cipro] Pain NSAIDS (Non-Steroidal Allergy Dyspnea Verified 01/26/17 19:23 Anti-Inflamma erythromycin base AdvReac Unknown Abdominal Verified 01/26/17 19:23 [Erythromycin Base] Pain sulfamethoxazole AdvReac Unknown Abdominal Verified 01/26/17 19:23 [From Bactrim] Pain trimethoprim [From Bactrim] AdvReac Unknown Abdominal Verified 01/26/17 19:23 Pain indomethacin [From Indocin] AdvReac Confusion Verified 01/26/17 19:23 indomethacin sodium AdvReac Confusion Verified 01/26/17 19:23 [From Indocin] Penicillins AdvReac Nausea & Verified 01/26/17 19:23 Vomiting Sulfa (Sulfonamide AdvReac Abdominal Verified 01/26/17 19:23 Antibiotics) Pain Review of Systems ROS Statement: Those systems with pertinent positive or pertinent negative responses have been documented in the HPI. ROS Other: All systems not noted in ROS Statement are negative. Past Medical History Past Medical History: Asthma, Diabetes Mellitus, Eye Disorder, Fibromyalgia, GERD/Reflux, Hyperlipidemia, Hypertension, Musculoskeletal Disorder, Pneumonia, Respiratory Disorder, Skin Disorder Additional Past Medical History / Comment(s): Bronchial asthma, tracheobronchomalacia, common variable immunoglobulin deficiency and the patient used to have frequent bouts of pneumonias in the past according multiple bronchoscopies including infections with Serratia marcescens and these pneumonia is improved after she was placed on IVIG, chronic steroid use, suspected component of adrenal insufficiency due to chronic steroid use, 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 Dominguez from infectious disease, cataracts, glaucoma, fibromyalgia, chronic pain, compression fracture of the spine, History of Any Multi-Drug Resistant Organisms: MRSA Date of last positivie culture/infection: 2010 MDRO Source:: right hand Past Surgical History: Appendectomy, Breast Surgery, Cholecystectomy, Tubal Ligation Additional Past Surgical History / Comment(s): MULT BRONCHS, WASHINGS, LAST 04/17. EXC [facility] CATARACT. BLEPHAROPLASTY/ R&L BREAST BIOPSIES; PORT A CATH IN LEFT CHEST-CHANGED TO RT CHEST,EXC MYCOBACTERIUM AREAS RT ARM 2011; UPPER TEETH EXTRACTED. RT SALPINGECTOMY/FALLOPIAN TUBE REMOVED, I&D BOIL.Jul [facility] EYE AND MUSCLE SURGERY; - mouth (bone) surgery. Pain pump insertion to left buttocks - October 2016 Past Anesthesia/Blood Transfusion Reactions: Motion Sickness, Postoperative Nausea & Vomiting (PONV) Past Psychological History: Anxiety, Depression Additional Psychological History / Comment(s): . Lives in the family home with her . Not employed outside of the home. Lifelong nonsmoker. No significant history of alcohol use. No history of recreational drug use. No international travels. There are pet dogs in the home. They're still chilled in the home that they are responsible for. Smoking Status: Never smoker Past Alcohol Use History: None Reported Past Drug Use History: None Reported - Past Family History Mother Family Medical History: Cancer Additional Family Medical History / Comment(s): HAD OPEN HEART SURGERY, BREAST CANCER Father Additional Family Medical History / Comment(s): r/t suicide General Exam - General Exam Comments Initial Comments: General: The patient is awake and alert, in no distress, and does not appear acutely ill. Eye: Pupils are equal, round and reactive to light, extra-ocular movements are intact; there is normal conjunctiva bilaterally. No signs of icterus. Ears, nose, mouth and throat: There are moist mucous membranes. Neck: The neck is supple, there is no tenderness. Cardiovascular: There is a regular rate and rhythm. No murmur, rub or gallop is appreciated. Respiratory: Lungs are clear to auscultation, respirations are non-labored, breath sounds are equal. No wheezes, stridor, rales, or rhonchi. Gastrointestinal: Soft, non-distended, non-tender abdomen without masses or organomegaly noted. There is no rebound or guarding present. No CVA tenderness. Bowel sounds are unremarkable. Back: There is no tenderness to palpation in the midline. There is no obvious deformity. No rashes noted. Musculoskeletal: Normal ROM, no tenderness, There is no pedal edema. There is no calf tenderness or swelling. Sensation intact. Pulses equal bilaterally 2+. Neurological: CN II-XII intact, There are no obvious motor or sensory deficits. Coordination appears grossly intact. Speech is normal. Skin: Skin is warm and dry and no rashes or lesions are noted. Psychiatric: Cooperative, appropriate mood & affect, normal judgment. Limitations: no limitations Course Vital Signs 01/26/17 18:37 Temperature 98.5 F Pulse Rate 75 Respiratory 16 Rate Blood Pressure 113/56 O2 Sat by Pulse 98 Oximetry Medical Decision Making - Medical Decision Making 61-year-old female presents emergency Department chief complaint abdominal pain much like her typical flareups. She states the GI cocktail did help. GI cocktail did help the patient's symptoms. She didn't tolerate food here. This and she will be discharged home. We discussed return for follow-up. Patient stated that she understood all questions have been answered. She will be discharged home. - Lab Data Result diagrams: 01/26/17 19:52 01/26/17 19:52 Lab Results 01/26/17 01/26/17 01/26/17 Range/Units 18:48 19:52 19:52 WBC 5.8 (3.8-10.6) k/uL RBC 4.48 (3.80-5.40) m/uL Hgb 11.2 L (11.4-16.0) gm/dL Hct 36.5 (34.0-46.0) % MCV 81.5 (80.0-100.0) fL MCH 25.0 (25.0-35.0) pg MCHC 30.7 L (31.0-37.0) g/dL RDW 15.9 H (11.5-15.5) % Plt Count 208 (150-450) k/uL Neutrophils % 61 % Lymphocytes % 28 % Monocytes % 7 % Eosinophils % 1 % Basophils % 1 % Neutrophils # 3.6 (1.3-7.7) k/uL Lymphocytes # 1.6 (1.0-4.8) k/uL Monocytes # 0.4 (0-1.0) k/uL Eosinophils # 0.0 (0-0.7) k/uL Basophils # 0.0 (0-0.2) k/uL Hypochromasia Marked Sodium 142 (137-145) mmol/L Potassium 3.4 L (3.5-5.1) mmol/L Chloride 102 (98-107) mmol/L Carbon Dioxide 31 H (22-30) mmol/L Anion Gap 9 mmol/L BUN 21 H (7-17) mg/dL Creatinine 0.92 (0.52-1.04) mg/dL Est GFR (MDRD) Af Amer >60 (>60 ml/min/1.73 sqM) Est GFR (MDRD) Non-Af >60 (>60 ml/min/1.73 sqM) Glucose 82 (74-99) mg/dL POC Glucose (mg/dL) 99 (75-99) mg/dL 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 Please follow up with family doctor if symptoms have not improved over the next two days. Please return to the emergency room if your symptoms increase or worsen or for any other concerns. Referrals: Ponce Kothari MD [Primary Care Provider] - 1-2 days Time of Disposition: 21:23
[2017-01-26 20:11] LABS: Basophils % (A) 1 %; CH 24.8; CHCM 30.6; Eosinophils % (A) 1 %; HCT 36.5 % (34.0-46.0); HDW 3.09; HGB 11.2 gm/dL (11.4-16.0); Hypochromasia Marked; Luc # (Auto) 0.16; Luc % (Auto) 3; Lymphocytes # (A) 1.6 k/uL (1.0-4.8); Lymphocytes % (A) 28 %; MCHC 30.7 g/dL (31.0-37.0); MCV 81.5 fL (80.0-100.0); Mean Platelet Volume 8.2; Monocytes # (A) 0.4 k/uL (0-1.0); Monocytes % (A) 7 %; Neutrophils # (A) 3.6 k/uL (1.3-7.7); Neutrophils % (A) 61 %; RBC 4.48 m/uL (3.80-5.40); RDW 15.9 % (11.5-15.5); WBC 5.8 k/uL (3.8-10.6)
[2017-01-26 20:20] LABS: ALT 43 U/L (9-52); AST 47 U/L (14-36); Alkaline Phosphatase 66 U/L (38-126); Amylase 66 U/L (30-110); Anion Gap 9 mmol/L; Blood Urea Nitrogen 21 mg/dL (7-17); Calcium 9.1 mg/dL (8.4-10.2); Carbon Dioxide 31 mmol/L (22-30); Chloride 102 mmol/L (98-107); Glucose 82 mg/dL (74-99); Non-African American GFR(MDRD) >60 (>60 ml/min/1.73 sqM); Potassium 3.4 mmol/L (3.5-5.1); Sodium 142 mmol/L (137-145); Total Bilirubin 0.4 mg/dL (0.2-1.3); Total Protein 6.8 g/dL (6.3-8.2)
--- NOTE | 2017-01-26 21:01 | XR ---
EXAMINATION TYPE: XR abdomen 2V DATE OF EXAM: 01/26/2017 COMPARISON: 09/11/2016 INDICATION: Pain TECHNIQUE: Supine and upright views abdomen FINDINGS: Nonspecific bowel gas within small bowel loops as well as colon. Moderate fecal debris is within the colon. Electronic device overlies the left hip. Psoas margins are normal. No organomegaly is present. Cholecystectomy clips in right upper quadrant. No free air is evident. No suspicious differential air-fluid levels are present. IMPRESSION: 1. Nonspecific abdomen. 2. Moderate fecal retention.
[2017-01-26 21:38] VITALS: BP 122/58; PULSE 64; RESP 18; TEMP 97.8
== END 2017-01-26 21:50 | disposition home or self-care (01) ==
LOC: EC 18:23
DX: K59.00 Constipation, unspecified (principal); R10.9 Unspecified abdominal pain; R11.0 Nausea; J45.909 Unspecified asthma, uncomplicated; E11.9 Type 2 diabetes mellitus without complications; K21.9 Gastro-esophageal reflux disease without esophagitis; E78.5 Hyperlipidemia, unspecified; M79.7 Fibromyalgia; I10 Essential (primary) hypertension; F32.9 Major depressive disorder, single episode, unspecified; F41.9 Anxiety disorder, unspecified; Z79.4 Long term (current) use of insulin; Z79.899 Other long term (current) drug therapy; Z79.52 Long term (current) use of systemic steroids; Z79.891 Long term (current) use of opiate analgesic; Z88.1 Allergy status to other antibiotic agents; Z88.2 Allergy status to sulfonamides; Z88.0 Allergy status to penicillin; Z88.8 Allergy status to other drugs, medicaments and biological substances; Z87.01 Personal history of pneumonia (recurrent); Z90.49 Acquired absence of other specified parts of digestive tract
CPT/HCPCS: 36415; 74020; 80053; 82150; 83690; 85025; 96360; 99284

== ENCOUNTER → 2017-01-30 | Outpatient (CLI) | payer BC ==
--- NOTE | 2017-01-30 17:36 | PN ---
I am seeing Alley in follow-up regarding obstructive sleep apnea. She was diagnosed having moderate CECI with an AHI of 24 and currently she is using an O2 CPAP unit with a minimum pressure of 7. Maximum pressure of 20. In follow-up she has not been compliant knowing that she is having difficulty in tolerating her full face mask. The patient is a mouth breather and we tried different masks on her. One issue was that the patient had lost weight and her facial features have changed. She was using a fit life full face mask and she is not comfortable. She is pulling off the mask all the time and her compliance report shows poor use of CPAP use over the past 6 months. She is coming in for further advice. Note that the treatment was successful as checked on a previous compliancy follow-up. She has snoring for now and she is having increased somnolence and sleepiness during the day. BP is 140/73, pulse 84, respirations 16, temperature 98.5, saturation 96% on room air. Weight is 138. Height is 5 foot 0. GENERAL APPEARANCE: Calm, comfortable. HEENT: Edentulous. No goiter, neck masses. Crowding of posterior pharynx is present. LUNGS: Clear to auscultation. HEART: Sounds are regular rate and rhythm. Normal S1, S2. ABDOMEN: Soft, nontender. No organomegaly. EXTREMITIES: No edema. No cyanosis, or clubbing. IMPRESSION: 1. Symptomatic obstructive sleep apnea, moderate to severe AHI of 24. 2. Difficulty in tolerating CPAP probably related to her poor mask fit. 3. Severe persistent bronchial asthma. 4. Chronic pain. 5. Chronic fatigue and sleepiness. PLAN: 1. The patient was fitted to an AirFit F10 medium-sized full face mask. 2. We will discontinue the Simplus mask. 3. Restart CPAP use. The patient has an auto CPAP with a minimum pressure of 7 and maximum of 20. 4. Optimize sleep hygiene measures. 5. We will continue to follow.
== END ==
LOC: SLEEP 13:36
PROVIDERS: ATTEND Internal Medicine Critical Care Medicine
DX: G47.33 Obstructive sleep apnea (adult) (pediatric) (principal); J45.909 Unspecified asthma, uncomplicated; R53.83 Other fatigue; G89.29 Other chronic pain

== ENCOUNTER → 2017-02-13 | Outpatient (CLI) | payer BC ==
--- NOTE | 2017-02-13 11:05 | FL ---
EXAMINATION TYPE: FL UGI air DATE OF EXAM: 02/13/2017 COMPARISON: Previous study dated 04/05/2015. HISTORY: Frequent coughing following hiatal hernia repair. TECHNIQUE: A single/double contrast UGI study is performed. FINDINGS: The patient swallowed barium of these. The esophagus distended normally with air and barium without evidence of obstructing or constricting disease. There is a prominent hiatal hernia present. Stomach contour is normal. The duodenal cap and sweep are normal. IMPRESSION: PROMINENT HIATAL HERNIA.
== END | disposition home or self-care (01) ==
LOC: RADFLWHC 10:05
PROVIDERS: ATTEND Surgery Plastic and Reconstructive Surgery
DX: K44.9 Diaphragmatic hernia without obstruction or gangrene (principal)
CPT/HCPCS: 74246

== ENCOUNTER → 2017-03-07 | Outpatient (CLI) | payer BC ==
--- NOTE | 2017-03-07 15:51 | WWHP ---
DATE OF SERVICE: 03/07/2017 CHIEF COMPLAINT: The patient is here for her routine gynecological exam. HPI: This is a 61 year old G3, P3 with an LMP of 1998. The patient is without gynecological complaints. However, she has had several urinary tract infections throughout the year. She states she developed sepsis after a urinary tract infection at the beginning of this year. She denies any dysuria at the urinary opening but does have occasional discomfort in the abdomen as she voids. She states she tries to empty the bladder as completely as possible by pushing and this is when she can notice some burning in the abdomen. She denies any significant urinary frequency or urgency. 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 Medications: The patient is on numerous medications and she has brought in a list of her current medications. Please refer to this list that is on the chart. ALLERGIES TO CEFTIN, CIPRO, ERYTHROMYCIN, INDOCIN, PENICILLIN AND SULFA DRUGS. Past surgical history: Hiatal hernia, surgery with colonoscopy in 2014. Also , eye surgery and oral surgery. For additional surgical history, please see the 2015 H&P. She had a pain pump placed in the area of the left hip in 2017. 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 SOCIAL HISTORY: She denies tobacco, alcohol and drug use. She has been since 1991. FAMILY HISTORY: Unchanged from the 2016 H&P. REVIEW OF SYSTEMS: She has lost about 7 pounds over the last year. She denies respiratory, cardiac or GI problems. Physical examination: Blood pressure 110/51. Height 5 feet one half inch. Weight 136 pounds. Temperature 97.0. Pulse 80. This is a well developed and well nourished white female who is alert and oriented times three in no acute distress. HEENT: Within normal limits. Neck is supple without mass or thyromegaly. Chest and lungs are clear to auscultation. Heart is regular rate and rhythm. Breasts are without mass or discharge. Axillary exam is negative for adenopathy. Back is negative for CVA tenderness. Abdomen: There is an insulin pump on the right side of her abdomen. The abdomen is soft, nontender without palpable masses. Pelvic exam: External genitalia reveals mild to moderate atrophy without lesions. Cervix and vagina reveals mild to moderate atrophy without lesions. There is no unusual discharge. There is no cervical motion tenderness. Uterus is mid position, non-gravid size and nontender. There are no palpable adnexal masses or tenderness. Rectovaginal exam is negative for mass or tenderness and is negative for occult blood. Extremities nontender. IMPRESSION: 1. 61 year old menopausal female with normal gynecological exam. 2. Abdominal dysuria. 3. Numerous medical problems. PLAN: 1. PAP smear was deferred since she had a normal one last year. 2. Self breast examination was discussed. 3. Mammogram will be due later this month and an order slip was given to the patient for this. 4. Urine has been obtained for UA and C&S. 5. I have advised her to avoid bearing down to empty the bladder but did try to give herself more time and try to void by relaxing. 6. She will follow up with her multiple specialists for her multiple medical problems. 7. She will return in one year. RADHAMES
[2017-03-07 16:41] LABS: Amorphous Sediment,Urine Rare /hpf; Appearance,Urine Clear (Clear); Bilirubin,Urine Negative (Negative); Glucose,Urine (UA) Negative (Negative); Ketones,Urine Negative (Negative); Leukocyte Esterase,Urine Large (Negative); Nitrite,Urine Negative (Negative); PH, Urine 6.5 (5.0-8.0); Particle Count 462; Protein,Urine Negative (Negative); RBC,Urine <1 /hpf (0-5); Specific Gravity,Urine 1.004 (1.001-1.035); UA Billing (MACRO vs. MICRO) MICRO; Urobilinogen,Urine <2.0 mg/dL (<2.0); WBC,Urine 72 /hpf (0-5)
== END | disposition home or self-care (01) ==
LOC: WWCWWP 08:00
PROVIDERS: ATTEND Obstetrics & Gynecology
DX: R30.0 Dysuria (principal)
CPT/HCPCS: 81001; 87086

== ENCOUNTER → 2017-04-20 | Outpatient (CLI) | payer BC ==
--- NOTE | 2017-04-23 08:55 | MM ---
Reason for exam: screening (asymptomatic). Last mammogram was performed 1 year and 1 month ago. History: Patient is postmenopausal. Family history of breast cancer in mother at age 75 and breast cancer in maternal grandmother at age 75. Benign excisional biopsy of the right breast, 1989. Excisional biopsy of the left breast. Took estrogen for 6 years. Physical Findings: A clinical breast exam by your physician is recommended on an annual basis and results should be correlated with mammographic findings. MG Screening Mammo w CAD Bilateral CC and MLO view(s) were taken. Prior study comparison: March 15, 2016, bilateral MG screening mammo w CAD. February 09, 2015, bilateral MG screening mammo w CAD. February 03, 2014, bilateral MG screening mammo w CAD. The breast tissue is heterogeneously dense. This may lower the sensitivity of mammography. Finding: There are typically benign vascular calcifications in both breasts. No suspicious finding. No significant changes in finding since March 15, 2016, February 09, 2015, and February 03, 2014. ASSESSMENT: Benign, BI-RAD 2 RECOMMENDATION: Routine screening mammogram of both breasts in 1 year.
== END | disposition home or self-care (01) ==
LOC: RADMAMWWP 08:49
PROVIDERS: ATTEND Obstetrics & Gynecology
DX: Z12.31 Encounter for screening mammogram for malignant neoplasm of breast (principal)

== ENCOUNTER 2017-07-24 10:37 | Emergency (ER) | payer BC ==
[2017-07-24 10:50] VITALS: BP 123/58; PULSE 82; RESP 18; TEMP 99
[2017-07-24] MEDS ORDERED: TOPICAL SKIN ADHESIVE 1 EACH AMP TOPICAL ONE (11:04)
[2017-07-24] MEDS ORDERED: DIPH,PERTUS(ACELL)TETVAC-LF 0.5 ML VIAL IM ONE (11:04)
--- NOTE | 2017-07-24 12:15 | ED ---
Wound/Laceration HPI - General Chief Complaint: Wound/Laceration Stated Complaint: R arm laceration Time Seen by Provider: 07/24/17 10:52 Source: patient, RN notes reviewed Mode of arrival: wheelchair Limitations: no limitations - History of Present Illness Initial Comments: This is a 62-year-old female presents emergency Department chief complaints continued for right wrist. Patient states his happened just prior arrival. Patient states that back in housekeeping cleaner fell onto her right wrist region. Patient is unsure when her last tetanus was. Patient states that she has very thin skin and has problems with infections. Patient's concerned about this. Patient has full range of motion of her right wrist and hand. Denies any paresthesias. - Related Data Home Medications Medication Instructions Recorded Confirmed Escitalopram [Lexapro] 30 mg PO QAM 01/01/14 07/24/17 Montelukast [Singulair] 10 mg PO HS 01/01/14 07/24/17 Spironolactone [Aldactone] 25 mg PO QID 01/01/14 07/24/17 ALPRAZolam [Xanax] 0.5 mg PO TID PRN 01/02/14 07/24/17 Potassium Chloride ER [K-Dur 20] 60 meq PO BID 11/06/14 07/24/17 Amitriptyline HCl [Elavil] 30 mg PO HS 12/07/14 07/24/17 Albuterol Sulfate [Ventolin HFA] 2 puff INHALATION RT-QID PRN 05/12/15 07/24/17 Fluconazole [Diflucan] 100 mg PO DAILY PRN 07/06/15 07/24/17 Budesonide [Pulmicort] 0.5 mg INHALATION RT-BID 09/09/16 07/24/17 predniSONE 20 mg PO DAILY 09/09/16 07/24/17 traZODone HCL 75 mg PO HS 09/10/16 07/24/17 Fluticasone/Salmeterol [Advair 1 puff INHALATION RT-BID 07/24/17 07/24/17 500-50 Diskus] Furosemide [Lasix] 40 mg PO BID 07/24/17 07/24/17 Gammagard 10 gm IV Q28D 07/24/17 07/24/17 Insulin Aspart (For Pump) [NovoLOG 0.01 unit SQ-PUMP CONTINUOUS 07/24/17 (For Pump)] Ipratropium Nebulized [Atrovent 0.5 mg INHALATION RT-Q6H PRN 07/24/17 07/24/17 Nebulized] buPROPion XL [Wellbutrin Xl] 450 mg PO DAILY 07/24/17 07/24/17 Previous Rx's Medication Instructions Recorded Clindamycin HCl 300 mg PO Q6HR #40 cap 07/24/17 Allergies Allergy/AdvReac Type Severity Reaction Status Date / Time cefuroxime axetil Allergy Severe Abdominal Verified 07/24/17 12:01 [From Ceftin] Pain ciprofloxacin HCl Allergy Severe Abdominal Verified 07/24/17 12:01 [From Cipro] Pain NSAIDS (Non-Steroidal Allergy Dyspnea Verified 07/24/17 12:01 Anti-Inflamma erythromycin base AdvReac Unknown Abdominal Verified 07/24/17 12:01 [Erythromycin Base] Pain sulfamethoxazole AdvReac Unknown Abdominal Verified 07/24/17 12:01 [From Bactrim] Pain trimethoprim [From Bactrim] AdvReac Unknown Abdominal Verified 07/24/17 12:01 Pain indomethacin [From Indocin] AdvReac Confusion Verified 07/24/17 12:01 indomethacin sodium AdvReac Confusion Verified 07/24/17 12:01 [From Indocin] Penicillins AdvReac Nausea & Verified 07/24/17 12:01 Vomiting Sulfa (Sulfonamide AdvReac Abdominal Verified 07/24/17 12:01 Antibiotics) Pain Review of Systems ROS Statement: Those systems with pertinent positive or pertinent negative responses have been documented in the HPI. ROS Other: All systems not noted in ROS Statement are negative. Past Medical History Past Medical History: Asthma, Diabetes Mellitus, Eye Disorder, Fibromyalgia, GERD/Reflux, Hyperlipidemia, Hypertension, Musculoskeletal Disorder, Pneumonia, Respiratory Disorder, Skin Disorder Additional Past Medical History / Comment(s): Bronchial asthma, tracheobronchomalacia, common variable immunoglobulin deficiency and the patient used to have frequent bouts of pneumonias in the past according multiple bronchoscopies including infections with Serratia marcescens and these pneumonia is improved after she was placed on IVIG, chronic steroid use, suspected component of adrenal insufficiency due to chronic steroid use, 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 Dominguez from infectious disease, cataracts, glaucoma, fibromyalgia, chronic pain, compression fracture of the spine, History of Any Multi-Drug Resistant Organisms: MRSA Date of last positivie culture/infection: 2010 MDRO Source:: right hand Past Surgical History: Appendectomy, Breast Surgery, Cholecystectomy, Tubal Ligation Additional Past Surgical History / Comment(s): MULT BRONCHS, WASHINGS, LAST 04/17. EXC OMA CATARACT. BLEPHAROPLASTY/ R&L BREAST BIOPSIES; PORT A CATH IN LEFT CHEST-CHANGED TO RT CHEST,EXC MYCOBACTERIUM AREAS RT ARM 2011; UPPER TEETH EXTRACTED. RT SALPINGECTOMY/FALLOPIAN TUBE REMOVED, I&D BOIL.Jul [facility] EYE AND MUSCLE SURGERY; - mouth (bone) surgery. Pain pump insertion to left buttocks - October 2016 Past Anesthesia/Blood Transfusion Reactions: Motion Sickness, Postoperative Nausea & Vomiting (PONV) Past Psychological History: Anxiety, Depression Smoking Status: Former smoker Past Alcohol Use History: None Reported Past Drug Use History: None Reported - Past Family History Mother Family Medical History: Cancer Additional Family Medical History / Comment(s): HAD OPEN HEART SURGERY, BREAST CANCER Father Additional Family Medical History / Comment(s): r/t suicide General Exam Limitations: no limitations General appearance: alert, in no apparent distress Head exam: Present: atraumatic, normocephalic, normal inspection Respiratory exam: Present: normal lung sounds bilaterally. Absent: respiratory distress, wheezes, rales, rhonchi, stridor Cardiovascular Exam: Present: regular rate, normal rhythm, normal heart sounds. Absent: systolic murmur, diastolic murmur, rubs, gallop, clicks Extremities exam: Present: other (Right wrist there is a stellate-type skin tear noted to the right wrist there is approximately 4 cm x4 cm) Skin exam: Present: warm, dry Course Vital Signs 07/24/17 10:48 Temperature 99.0 F Pulse Rate 82 Respiratory 18 Rate Blood Pressure 123/58 O2 Sat by Pulse 94 L Oximetry Procedures - Procedures Initial comment: Patient's skin tear on the right wrist was cleaned with saline, skin was pulled across wound, Dermabond and Steri-Stripped. There are open areas this is not completely sealed. Medical Decision Making - Medical Decision Making 62-year-old female presented emergency dept for skin tear. This was cleaned, partially closed. Patient's tetanus was updated. Patient was placed on clindamycin for prophylactic antibiotic she's a risk for infections, advised close follow-up within [address] Dominguez and return for any worsening symptoms. Disposition Clinical Impression: Skin tear of right upper extremity Disposition: HOME SELF-CARE Condition: Stable Instructions: Skin Tear (ED) Additional Instructions: Please return to the Emergency Department if symptoms worsen or any other concerns. Prescriptions: Clindamycin HCl 300 mg PO Q6HR #40 cap Referrals: Ponce Kothari MD [Primary Care Provider] - 1-2 days Mickey Dominguez MD [STAFF PHYSICIAN] - 1-2 days Time of Disposition: 12:15
--- NOTE | 2017-07-24 12:37 | XR ---
EXAMINATION TYPE: XR wrist limited 2 views RT, XR hand complete 3 views RT DATE OF EXAM: 07/24/2017 COMPARISON: NONE HISTORY: 62-year-old female with pain after injury FINDINGS: Wrist: The radiocarpal and distal radioulnar joint as well as the midcarpal compartment appear intact. There are some TFC calcifications and synovitis calcifications demonstrated. Vascular calcifications sugge st underlying diabetes and/or chronic kidney disease. Some soft tissue swelling is present along with marked osteopenia. No acute fracture, subluxation, or dislocation seen. Hand: Degenerative joint space narrowing and joint subluxations at the first, second, third, and fourth MCP joints. Synovial calcifications are noted. Marked osteopenia. No acute fracture or dislocation seen. COMBINED IMPRESSION: 1. Marked osteopenia and some soft tissue swelling at the wrist. No acute osseous abnormality seen. 2. TFC and synovial based calcifications. These may be idiopathic or could be seen in the setting of CPPD. 3. Moderate to severe degenerative changes first through third MCP joints.
== END 2017-07-24 12:37 | disposition home or self-care (01) ==
LOC: EC 10:37
DX: S61.511A Laceration without foreign body of right wrist, initial encounter (principal); I10 Essential (primary) hypertension; E11.9 Type 2 diabetes mellitus without complications; J45.909 Unspecified asthma, uncomplicated; F32.9 Major depressive disorder, single episode, unspecified; F41.9 Anxiety disorder, unspecified; Z87.891 Personal history of nicotine dependence; Z79.4 Long term (current) use of insulin; Z79.51 Long term (current) use of inhaled steroids; Z79.52 Long term (current) use of systemic steroids; Z79.899 Other long term (current) drug therapy; Z96.41 Presence of insulin pump (external) (internal); Z88.0 Allergy status to penicillin; Z88.1 Allergy status to other antibiotic agents; Z88.2 Allergy status to sulfonamides; Z88.6 Allergy status to analgesic agent; Z87.2 Personal history of diseases of the skin and subcutaneous tissue; Z23 Encounter for immunization; W17.89XA Other fall from one level to another, initial encounter
CPT/HCPCS: 12002; 90471; 90715; 99283

== ENCOUNTER → 2017-08-30 | Outpatient (CLI) | payer BC | END | disposition home or self-care (01) | LOC: PROCWHC3 10:00 | PROVIDERS: ATTEND Anesthesiology | DX: Z01.812 Encounter for preprocedural laboratory examination (principal); K21.9 Gastro-esophageal reflux disease without esophagitis; K44.9 Diaphragmatic hernia without obstruction or gangrene | CPT/HCPCS: 86850; 86900; 86901 ==

== ENCOUNTER 2017-09-07 09:26 | Inpatient (IN) | payer BC ==
[2017-08-30 16:35] VITALS: BMI 26.9
[~2017-09-07 09:26] MED LIST: CHLORHEXIDINE GLUCONATE 15 ML CUP MUCOUS MEM ONE; DEXAMETHASONE SOD PHOSPHATE 10 MG/ML 1 ML VIAL IV ONE; ENOXAPARIN 40 MG/0.4 ML SYRINGE SQ STA; HEPARIN SODIUM,PORCINE 5,000 UNIT/ML 1 ML VIAL SQ ONE; LACTATED RINGERS 1,000 ML IV SCH; MIDAZOLAM 2 MG/2 ML VIAL IV PRN; MORPHINE SULFATE 4 MG/ML SYRINGE IV PRN; ONDANSETRON 4 MG/2 ML VIAL IVP ONE; PANTOPRAZOLE 40 MG/10 ML VIAL IV STA; SCOPOLAMINE 1.5MG/72HR PATCH TRANSDERM ONE
[2017-09-07] MEDS ORDERED: HYDROCORTISONE SUCCINATE 100 MG/2 ML VIAL IV STA (09:52)
[2017-09-07 10:36] LABS: Glucose,Whole Blood 58 mg/dL (75-99)
[2017-09-07 10:39] LABS: Anisocytosis Slight; Basophils % (A) 1 %; Eosinophils % (A) 1 %; HCT 37.2 % (34.0-46.0); HGB 11.5 gm/dL (11.4-16.0); Hypochromasia Moderate; Lymphocytes # (A) 0.8 k/uL (1.0-4.8); Lymphocytes % (A) 12 %; MCH 24.1 pg (25.0-35.0); MCHC 30.9 g/dL (31.0-37.0); MCV 77.8 fL (80.0-100.0); Mean Platelet Volume 8.6; Microcytosis Slight; Monocytes # (A) 0.4 k/uL (0-1.0); Monocytes % (A) 6 %; Neutrophils % (A) 79 %; Platelet Count 184 k/uL (150-450); RBC 4.78 m/uL (3.80-5.40); RDW 18.5 % (11.5-15.5); WBC 6.3 k/uL (3.8-10.6)
--- NOTE | 2017-09-07 10:47 | XR ---
EXAMINATION TYPE: XR chest 1V portable DATE OF EXAM: 09/07/2017 COMPARISON: 09/09/2016 HISTORY: Preoperative evaluation. TECHNIQUE: Single frontal view of the chest is obtained. FINDINGS: Scattered areas of left basilar linear platelike peripheral subsegmental atelectasis are s een in the midlung and lower lung. Right-sided Mediport is coiled within the right upper chest with i ts distal tip also in the right upper chest, not within a vascular distribution. This is similar to t he prior exam. No focal consolidation is seen within the lungs. Cardiac silhouette is within normal l imits. Osseous structures appear intact. IMPRESSION: Multifocal scattered left subsegmental peripheral platelike atelectasis. Stable but like ly malpositioned right Mediport catheter.
[2017-09-07] MEDS ORDERED: DEXTROSE 50%-WATER 50 ML SYRINGE IVP ONE (11:23)
[2017-09-07 12:26] LABS: Appearance,Urine Clear (Clear); Bilirubin,Urine Negative (Negative); Blood,Urine Negative (Negative); Color,Urine Yellow; Glucose,Urine (UA) 1+ (Negative); Leukocyte Esterase,Urine Negative (Negative); Nitrite,Urine Negative (Negative); Protein,Urine Negative (Negative); Specific Gravity,Urine 1.013 (1.001-1.035); Urobilinogen,Urine <2.0 mg/dL (<2.0)
--- NOTE | 2017-09-07 12:36 | P.GSHP ---
History of Present Illness H&P Date: 09/07/17 CHIEF COMPLAINT: Gastroesophageal reflux disease. HISTORY OF PRESENT ILLNESS: Alley Medrano is a 62 year-old female who is at least 3 years out following a laparoscopic hiatal hernia repair with Brandon fundoplasty. She had developed esophageal dysmotility and required a revision of her procedure. Since then however, she reports epigastric bloat. She is a long standing diabetic, insulin dependent, as well as on chronic steroid use and also has an immunodeficiency. She did complete a manometry. She now presents for further evaluation and management. PAST MEDICAL HISTORY: Please see list. PAST SURGICAL HISTORY: Please see list. MEDICATIONS: Please see list. ALLERGIES: Please see list. SOCIAL HISTORY: No illicit drug use FAMILY HISTORY: No reports of Crohn disease or ulcerative colitis. REVIEW OF ORGAN SYSTEMS: Additionally reports: Constitutional: No fevers or chills. Gastrointestional: She reports increasing abdominal gas bloat. She also reports intermittent dysphagia. Has GERD. HEENT: Denies any trouble with vision, hearing or nosebleeds. No difficulty swallowing. LYMPHATIC: The patient denies any lumps and bumps around the neck. ENDOCRINE: Denies any thyroid disorders. Has blood sugar glucose intolerance. RESPIRATORY: Denies pneumonia. Has asthma. CARDIOVASCULAR: Denies any chest pain, palpitations, or recent heart attacks. GENITOURINARY: Denies any blood in urine or increased urinary frequency. MUSCULOSKELETAL: Has back pain and stiffness or joint arthritis. NEUROLOGIC: Denies any numbness or tingling along the distal extremities. No seizure disorders or headaches. PSYCHIATRIC: Has depression. No suicidal ideation. Has anxiety. HEMATOLOGIC: Has abnormal bleeding or bruising. BREASTS: Denies any breast lumps, pain or nipple discharge. PHYSICAL EXAM: Patient is a 62-year-old female. GENERAL: Well developed and in no acute distress. Pleasant. HEENT: No sclera icterus. Extraocular movements grossly intact. Moist buccal mucosa. Head is atraumatic, normocephalic. Hears conversational speech. No nasal drainage. NECK: Supple without lymphadenopathy. No JV distention. CHEST: Non-labored respirations and equal bilateral excursions. CARDIOVASCULAR: Regular rate and rhythm. Palpable 2+ radial pulses. ABDOMEN: Soft. Non-tender. Nondistended. MUSCULOSKELETAL: No clubbing, cyanosis or edema. NEUROLOGIC: No focal or lateralizing signs. PSYCH: Appropriate affect. Alert and oriented to person, place and time. SKIN: Well perfused. Good skin turgor. STUDIES: Manometry report was reviewed in detail and demonstrated ineffective esophageal dysmotility. Lower esophageal sphincter pressures were adequate at 13. Total length of the esophageal sphincter was at least over 5. Intraabdominal length was also over 5. Upper esophageal sphincter function was within normal limits at 44 mm/Hg. Overall, no evidence of esophageal obstruction or esophageal dysmotility. Again, there is presence of ineffective swallows however. ASSESSMENT: 1. Gastroesophageal reflux disease. 2. History of chronic abdominal gas bloat. 3. Recurrent diaphragmatic hiatal hernia. 4. Diabetes type 2. 5. Immune deficiency. PLAN: 1. I have recommended complete take down of the Brandon, as reports are consistent with adequate lower esophageal sphincter pressure. Separately, she has a high likelihood ofunderlying gastroparesis with her history of diabetes and gas bloat. 2. I have recommended a revision, which is a take down of previous Brandon fundoplasty with hiatal hernia repair, with only mesh. Robotic assisted approach was advised, as this is a revision. 3. At minimum, in patient hospital over night was advised. 4. All risks and benefits, including questions, were addressed. ADDENDUM: On arrival, patient did have an elevated temperature of 100.3. Ancillary studies including chest x-ray demonstrated atelectasis. The patient did see Dr. Kothari straw hat washer operator yesterday and had gotten pulmonary clearance. She denies any fevers chills or shortness of breath. White count was within normal limits. Patient is surgically cleared to proceed with surgery. Past Medical History Past Medical History: Asthma, Diabetes Mellitus, Eye Disorder, Fibromyalgia, GERD/Reflux, Hyperlipidemia, Hypertension, Musculoskeletal Disorder, Pneumonia, Respiratory Disorder, Skin Disorder Additional Past Medical History / Comment(s): Bronchial asthma, tracheobronchomalacia, common variable immunoglobulin deficiency and the patient used to have frequent bouts of pneumonias in the past according multiple bronchoscopies including infections with Serratia marcescens and these pneumonia is improved after she was placed on IVIG, chronic steroid use, suspected component of adrenal insufficiency due to chronic steroid use, 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 Dominguez from infectious disease, glaucoma, chronic pain, compression fracture of the spine, History of Any Multi-Drug Resistant Organisms: MRSA Date of last positivie culture/infection: 2010 MDRO Source:: right hand Past Surgical History: Appendectomy, Breast Surgery, Cholecystectomy, Tubal Ligation Additional Past Surgical History / Comment(s): MULT BRONCHS, WASHINGS, LAST 04/17. EXC OMA CATARACT. BLEPHAROPLASTY/ R&L BREAST BIOPSIES; PORT A CATH IN LEFT CHEST-CHANGED TO RT CHEST,EXC MYCOBACTERIUM AREAS RT ARM 2011; UPPER TEETH EXTRACTED. RT SALPINGECTOMY/FALLOPIAN TUBE REMOVED, I&D BOIL.Jul [facility] SURGERY; - mouth (bone) surgery. Pain pump insertion to left buttocks - October 2016 Past Anesthesia/Blood Transfusion Reactions: Motion Sickness, Postoperative Nausea & Vomiting (PONV) Smoking Status: Never smoker - Past Family History Mother Family Medical History: Cancer Additional Family Medical History / Comment(s): HAD OPEN HEART SURGERY, BREAST CANCER Father Additional Family Medical History / Comment(s): r/t suicide Medications and Allergies Home Medications Medication Instructions Recorded Confirmed Type RX: Escitalopram [Lexapro] 30 mg PO QAM 01/01/14 09/07/17 History RX: Montelukast [Singulair] 10 mg PO HS 01/01/14 09/07/17 History RX: Spironolactone [Aldactone] 25 mg PO QID 01/01/14 09/07/17 History RX: ALPRAZolam [Xanax] 0.5 mg PO TID PRN 01/02/14 09/07/17 History RX: Potassium Chloride ER [K-Dur 60 meq PO BID 11/06/14 09/07/17 History 20] RX: Amitriptyline HCl [Elavil] 30 mg PO HS 12/07/14 09/07/17 History RX: Albuterol Sulfate [Ventolin 2 puff INHALATION RT-QID PRN 05/12/15 09/07/17 History HFA] RX: Fluconazole [Diflucan] 100 mg PO DAILY PRN 07/06/15 09/07/17 History RX: Budesonide [Pulmicort] 0.5 mg INHALATION RT-BID 09/09/16 09/07/17 History RX: predniSONE 20 mg PO DAILY 09/09/16 09/07/17 History RX: traZODone HCL 75 mg PO HS 09/10/16 09/07/17 History Fluticasone/Salmeterol [Advair 1 puff INHALATION RT-BID 07/24/17 09/07/17 History 500-50 Diskus] Furosemide [Lasix] 40 mg PO BID 07/24/17 09/07/17 History Gammagard 10 gm IV Q28D 07/24/17 09/07/17 History Insulin Aspart (For Pump) [NovoLOG 0.01 unit SQ-PUMP CONTINUOUS 07/24/17 History (For Pump)] Ipratropium Nebulized [Atrovent 0.5 mg INHALATION RT-Q6H PRN 07/24/17 09/07/17 History Nebulized] buPROPion XL [Wellbutrin Xl] 450 mg PO DAILY 07/24/17 09/07/17 History Allergies Allergy/AdvReac Type Severity Reaction Status Date / Time cefuroxime axetil Allergy Severe Abdominal Verified 09/07/17 12:10 [From Ceftin] Pain ciprofloxacin HCl Allergy Severe Abdominal Verified 09/07/17 12:10 [From Cipro] Pain NSAIDS (Non-Steroidal Allergy Dyspnea Verified 09/07/17 12:10 Anti-Inflamma erythromycin base AdvReac Unknown Abdominal Verified 09/07/17 12:10 [Erythromycin Base] Pain sulfamethoxazole AdvReac Unknown Abdominal Verified 09/07/17 12:10 [From Bactrim] Pain trimethoprim [From Bactrim] AdvReac Unknown Abdominal Verified 09/07/17 12:10 Pain indomethacin [From Indocin] AdvReac Confusion Verified 09/07/17 12:10 indomethacin sodium AdvReac Confusion Verified 09/07/17 12:10 [From Indocin] Penicillins AdvReac Nausea & Verified 09/07/17 12:10 Vomiting Sulfa (Sulfonamide AdvReac Abdominal Verified 09/07/17 12:10 Antibiotics) Pain Results - Labs 09/07/17 10:28
[2017-09-07] MEDS: ceFAZolin IN SWFI 2 GM/20 ML SYRINGE IVP ONE ×2 (12:48→12:58)
[2017-09-07] MEDS ORDERED: ePHEDrine SULFATE/0.9% NACL/PF 50 MG/5 ML SYRINGE IV ONE (12:58)
[2017-09-07] MEDS ORDERED: NEOSTIGMINE 1 MG/ML 10 ML VIAL ONE (12:58)
[2017-09-07] MEDS ORDERED: fentaNYL (PF) 50 MCG/ML 2 ML AMP ONE (12:58)
[2017-09-07] MEDS ORDERED: HYDROCORTISONE SUCCINATE 100 MG/2 ML VIAL ONE (12:58)
[2017-09-07] MEDS ORDERED: MIDAZOLAM 2 MG/2 ML VIAL ONE (12:58)
[2017-09-07] MEDS ORDERED: GLYCOPYRROLATE 0.2 MG/ML 2 ML VIAL ONE (12:58)
[2017-09-07] MEDS ORDERED: ROCURONIUM BROMIDE 10 MG/ML 10 ML VIAL IV ONE (12:58)
[2017-09-07] MEDS ORDERED: PROPOFOL 10 MG/ML 20 ML VIAL IV ONE (12:58)
[2017-09-07] MEDS ORDERED: LIDOCAINE 1% INJ 10MG/ML (20 ML MDV) ONE (12:58)
[2017-09-07 13:15] LABS: Ketones,Urine 1+ (Negative)
[2017-09-07] MEDS ORDERED: LACTATED RINGERS 1,000 ML IV ONE ×3 (13:35→16:44)
[2017-09-07] MEDS ORDERED: BUPIVACAINE (PF) 0.25% 30 ML VIAL SQ ONE (13:49)
[2017-09-07 14:11] LABS: Glucose,Whole Blood 66 mg/dL (75-99)
[2017-09-07 17:22] LABS: Glucose,Whole Blood 98 mg/dL (75-99)
[2017-09-07] MEDS: HYDROmorphone 4 MG/ML 1 ML SYRINGE IVP ONE ×4 (17:37→17:54)
[2017-09-07] MEDS ORDERED: NALOXONE 0.4 MG/ML 1 ML VIAL IV PRN (17:57)
[2017-09-07] MEDS ORDERED: HYDROmorphone 2 MG/ML 1 ML SYRINGE IVP PRN (17:57)
--- NOTE | 2017-09-07 18:04 | P.PCN ---
Date of Procedure: 09/07/17 Preoperative Diagnosis: Gastric esophageal reflux disease, recurrent hiatal hernia Postoperative Diagnosis: Same, incarcerated midline paraesophageal hiatal hernia 3 x 4 cm involving previous fundoplication Procedure(s) Performed: Robotic-assisted takedown of previous esophageal fundoplication, extensive lysis of adhesions over 2 hours, repair of recurrent incarcerated hiatal hernia 3 x 4 cm with mesh, intraoperative EGD Anesthesia: GETA, local Surgeon: Brenda Johnson Estimated Blood Loss (ml): 10 Pathology: other (Hiatal hernia sac) Condition: stable Disposition: floor Operative Findings: Severe adhesions perigastric including along the liver surface requiring 2 hours of dissection, recurrent incarcerated hiatal hernia 4 cm intraesophageal length, 3 x 4 cm defect with mesh placement, takedown of previous fundoplication without gastrotomies, intraoperative EGD confirmed held grade a lower esophageal valve, intra-abdominal esophageal length over 3 cm obtained, Thoracic length 19.5 cm
[2017-09-07 20:05] LABS: Glucose,Whole Blood 108 mg/dL (75-99)
[2017-09-07] MEDS ORDERED: IPRATROPIUM 0.5 MG/2.5 ML NEBU INHALATION PRN (20:18)
[2017-09-07] MEDS ORDERED: ALPRAZolam 0.5 MG TAB PO PRN (20:18)
[2017-09-07] MEDS ORDERED: Insulin Aspart (For Pump) 100 UNIT/ML VIAL SQ-PUMP SCH (20:30)
[2017-09-07] MEDS: ALBUTEROL NEBULIZED 2.5 MG/3 ML INHALATION SCH (20:36)
[2017-09-07] MEDS ORDERED: MONTELUKAST 10 MG TAB PO SCH (21:00)
[2017-09-07] MEDS: SIMETHICONE 40 MG/0.6 ML DROPS 2,000 MG/30 ML BOTTLE PO SCH (21:27)
[2017-09-07] MEDS: HYOSCYAMINE ORAL DROPS 1.875 MG/15 ML BOTTLE PO SCH (21:27)
[2017-09-07] MEDS: METOCLOPRAMIDE 5 MG/ML 2 ML VIAL IVP SCH (21:28)
[2017-09-07] MEDS: 0.9% NACL WITH KCL 20 MEQ/L 1,000 ML IV SCH (21:28)
[2017-09-07] MEDS: SPIRONOLACTONE 25 MG TAB PO SCH (21:29)
[2017-09-07] MEDS: HYDROcodone/APAP 15 ML SOLUTION PO PRN (21:59)
[2017-09-08] MEDS: SIMETHICONE 40 MG/0.6 ML DROPS 2,000 MG/30 ML BOTTLE PO SCH ×3 (01:02→11:33)
[2017-09-08] MEDS: HYOSCYAMINE ORAL DROPS 1.875 MG/15 ML BOTTLE PO SCH ×3 (01:02→11:33)
[2017-09-08] MEDS: METOCLOPRAMIDE 5 MG/ML 2 ML VIAL IVP SCH ×3 (01:03→11:36)
[2017-09-08] MEDS: ceFAZolin IN SWFI 2 GM/20 ML SYRINGE IVP SCH ×2 (01:08→08:12)
[2017-09-08] MEDS: DEXAMETHASONE SOD PHOSPHATE 10 MG/ML 1 ML VIAL IV SCH ×2 (01:09→07:33)
[2017-09-08] MEDS: 0.9% NACL WITH KCL 20 MEQ/L 1,000 ML IV SCH ×2 (03:13→07:23)
[2017-09-08] MEDS: HYDROcodone/APAP 15 ML SOLUTION PO PRN ×2 (03:17→08:40)
[2017-09-08 06:44] LABS: Glucose,Whole Blood 126 mg/dL (75-99)
[2017-09-08] MEDS: ALBUTEROL NEBULIZED 2.5 MG/3 ML INHALATION SCH ×3 (06:54→16:25)
[2017-09-08 07:17] LABS: Anisocytosis Slight; Basophils % (A) 0 %; Eosinophils % (A) 0 %; HCT 35.5 % (34.0-46.0); HGB 10.8 gm/dL (11.4-16.0); Hypochromasia Marked; Lymphocytes # (A) 0.3 k/uL (1.0-4.8); Lymphocytes % (A) 6 %; MCH 24.3 pg (25.0-35.0); MCHC 30.3 g/dL (31.0-37.0); MCV 80.1 fL (80.0-100.0); Mean Platelet Volume 9.5; Microcytosis Slight; Monocytes # (A) 0.2 k/uL (0-1.0); Monocytes % (A) 4 %; Neutrophils # (A) 3.9 k/uL (1.3-7.7); Neutrophils % (A) 89 %; Platelet Count 125 k/uL (150-450); RBC 4.43 m/uL (3.80-5.40); RDW 17.9 % (11.5-15.5); WBC 4.4 k/uL (3.8-10.6)
[2017-09-08] MEDS: INSULIN ASPART 100 UNIT/ML 1 ML 10 ML VIAL SQ SCH ×2 (07:22→12:56)
[2017-09-08] MEDS: SPIRONOLACTONE 25 MG TAB PO SCH ×2 (07:35→15:33)
[2017-09-08 07:37] LABS: Anion Gap 6 mmol/L; Blood Urea Nitrogen 8 mg/dL (7-17); Carbon Dioxide 25 mmol/L (22-30); Chloride 107 mmol/L (98-107); Phosphorus 2.1 mg/dL (2.5-4.5); Potassium 3.8 mmol/L (3.5-5.1); Sodium 138 mmol/L (137-145)
[2017-09-08] MEDS ORDERED: 0.9% NACL WITH KCL 20 MEQ/L 1,000 ML IV SCH (08:00)
[2017-09-08] MEDS ORDERED: BUDESONIDE 0.5 MG/2 ML NEBU INHALATION SCH (08:00)
[2017-09-08] MEDS ORDERED: SYMBICORT 160-4.5 MCG INHALER INHALATION SCH (08:00)
[2017-09-08] MEDS ORDERED: PANTOPRAZOLE 40 MG/10 ML VIAL IV SCH (09:00)
[2017-09-08] MEDS ORDERED: ENOXAPARIN 40 MG/0.4 ML SYRINGE SQ SCH (09:00)
[2017-09-08] MEDS ORDERED: predniSONE 20 MG TAB PO SCH (09:00)
--- NOTE | 2017-09-08 11:16 | P.PN ---
Progress Note - Text Progress Note Date: 09/08/17 Telepone communication where I spoke to nurse, patient, and her . Patient states "I feel so much better." She is pending an esophagram. No reports of dysphagia. Diet reviewed in detail of liquid diet only until seen in office. NO STRAWS. NO CARBONATED BEVERAGES. Pharmacy to review home meds for crushable or open capsules. Phosphate replacement in the interim and may be discharge after esophagram.
[2017-09-08] MEDS: SODIUM PHOSPHATE 10 MMOL in SODIUM CHLORIDE 0.9% 250 ML IVPB SCH ×3 (11:33→16:36)
--- NOTE | 2017-09-08 11:54 | P.PN ---
Subjective Progress Note Date: 09/08/17 Principal diagnosis: Brandon revision Patient doing well today. She is postoperative day 1 from a revision of her Brandon fundoplication. Very mild abdominal discomforts. Labs show a white blood cell count 4.4, hemoglobin 10.8, phosphorus slightly low. Low-grade temp of 99.9. Upper GI this morning is pending. She is hoping to go home today. She is ambulating. Objective - Vital Signs Vital signs: Vital Signs Temp 97.1 F L 09/08/17 07:26 Pulse 55 L 09/08/17 11:09 Resp 14 09/08/17 11:09 BP 126/63 09/08/17 07:26 Pulse Ox 95 09/08/17 07:26 Intake & Output 09/07/17 09/08/17 09/08/17 18:59 06:59 18:59 Intake Total 2100 1050 Output Total 765 400 Balance 1335 650 Weight 63.503 kg Intake: IV 2100 Intake, IV Titration 1050 Amount 0.9% NaCl with KCl 20 Meq 1050 /l 1,000 ml @ 150 mls/hr IV .Q6H40M [facility] Rx#: [id number] Output: Urine 755 400 Estimated Blood Loss 10 Other: Voiding Method Toilet # Voids 2 1 - Exam Abdomen: Soft, nondistended, minimal incisional tenderness - Labs CBC & Chem 7: 09/08/17 06:48 09/08/17 06:48 Labs: Abnormal Lab Results - Last 24 Hours (Table) 09/07/17 09/07/17 09/07/17 Range/Units 11:40 14:08 19:58 Hgb (11.4-16.0) gm/dL MCH (25.0-35.0) pg MCHC (31.0-37.0) g/dL RDW (11.5-15.5) % Plt Count (150-450) k/uL Lymphocytes # (1.0-4.8) k/uL POC Glucose (mg/dL) 66 L 108 H (75-99) mg/dL Calcium (8.4-10.2) mg/dL Phosphorus (2.5-4.5) mg/dL Urine Glucose (UA) 1+ H (Negative) Urine Ketones 1+ H (Negative) 09/08/17 09/08/1718 Range/Units 06:35 06:48 06:48 Hgb 10.8 L (11.4-16.0) gm/dL MCH 24.3 L (25.0-35.0) pg MCHC 30.3 L (31.0-37.0) g/dL RDW 17.9 H (11.5-15.5) % Plt Count 125 L (150-450) k/uL Lymphocytes # 0.3 L (1.0-4.8) k/uL POC Glucose (mg/dL) 126 H (75-99) mg/dL Calcium 7.0 L (8.4-10.2) mg/dL Phosphorus 2.1 L (2.5-4.5) mg/dL Urine Glucose (UA) (Negative) Urine Ketones (Negative) Assessment and Plan (1) Intractable nausea and vomiting Narrative/Plan: Await barium swallow this morning. Start clear liquids following that. Possible discharge this afternoon. Current Visit: No Status: Acute Code(s): R11.2 - NAUSEA WITH VOMITING, UNSPECIFIED SNOMED Code(s): 165602807
[2017-09-08 12:34] LABS: Glucose,Whole Blood 139 mg/dL (75-99)
[2017-09-08 13:59] VITALS: BP 147/64; PULSE 56; RESP 16; TEMP 98.3
[2017-09-08 14:30] LABS: Glucose,Whole Blood 126 mg/dL (75-99)
--- NOTE | 2017-09-08 15:50 | FL ---
EXAMINATION TYPE: FL esophagus cervic/pharynx DATE OF EXAM: 09/08/2017 HISTORY: Status post Brandon fundoplication. Evaluate for a leak. COMPARISON: February 13, 2017. TECHNIQUE: A double contrast esophagram is performed utilizing air and barium. Examination is somew hat suboptimal due to patient's condition. Fluoroscopy time: 30 seconds Contrast: 50 cc Isovue 350 FINDINGS: Merchandising Execution Associate images obtained demonstrate surgical clips in the gallbladder fossa. There is nondistended dannie l gas pattern identified. The patient was able to satisfactorily drink the contrast. There is an abrupt tapering in the distal esophagus identified where the Brandon fundoplication to place. Contrast however freely flows through the stomach and into the duodenum. No contrast extravasation is identified which would suggest a leak . The last image demonstrates a small amount of contrast in the stomach which was freely flowing into the duodenum. The patient reported no symptoms of nausea at the completion of study. IMPRESSION: No findings are identified which would suggest a leak. Contrast satisfactorily flowed into the small bowel.
--- NOTE | 2017-10-04 09:59 | P.OP ---
Date of Procedure: 09/07/17 Description of Procedure: DESCRIPTION OF PROCEDURE(S): SURGEON: EMILY FATIMA MD SWITCH INSPECTOR: 1. Mickey Taylor 2. Janine Arellano PREOPERATIVE DIAGNOSES: 1. Gastroesophageal reflux disease. 2. Recurrent paraesophageal hiatal hernia, midline. 3. Steroid dependent chronic obstructive pulmonary disease, moderate to severe 4. Chronicc congestive heart failure, diastolic disease. 5. Hypertensive heart disease with cardiomyopathy. 6. Mycobacterium tuberculosis. 7. 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 8. Fibromyalgia. 9. Common variable immunodeficiency disorder. 10. Chronic pain syndrome. 11. Glaucoma. POSTOPERATIVE DIAGNOSES: 1. Gastroesophageal reflux disease. 2. Recurrent incarcerated midline paraesophageal hiatal hernia, 3 x 4 cm. 3. Steroid dependent chronic obstructive pulmonary disease, moderate to severe 4. Chronicc congestive heart failure, diastolic disease. 5. Hypertensive heart disease with cardiomyopathy. 6. Mycobacterium tuberculosis. 7. 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 8. Fibromyalgia. 9. Common variable immunodeficiency disorder. 10. Chronic pain syndrome. 11. Glaucoma. OPERATION: 1. Robotic-assisted da Margarita Xi laparoscopic takedown of previous Brandon fundoplasty with lysis of adhesions over 2 hrs. 2. Robotic-assisted da Margarita Xi laparoscopic reduction and repair of recurrent incarcerated paraesophageal hiatal hernia, 3 x 4 cm, with Loami Biopatch A 8 x 8 cm. 3. Intraoperative esophagogastroduodenoscopy ANESTHESIA: General with local anesthetic. ESTIMATED BLOOD LOSS: 10 mL Pathology: other (Hiatal hernia sac) COMPLICATIONS: None. Condition: stable Disposition: floor FINDINGS: 1. Incarcerated midline paraesophageal hiatal hernia 3 x 4 cm involving previous fundoplication 2. Severe perigastric adhesions including along the liver surface requiring 2 hours of dissection 3. Recurrent incarcerated hiatal hernia 4 cm intraesophageal length. 4. Paraesophageal 3 x 4 cm defect repaired with mesh placement 5. Takedown of previous fundoplication without gastrotomies 6. Intraoperative EGD confirmed Hill grade I lower esophageal valve 7. intra-abdominal esophageal length over 3 cm obtained 8. Thoracic length 19.5 cm 9. Closure of the hiatus consistent with 54-[place] bougie. INDICATIONS: The patient is a 62-year-old male with previous history of a Brandon fundoplasty over 3 years ago. She had recurrent gastroesophageal reflux disease and hiatal hernia including epigastric abdominal pain poorly controlled with medications. Despite conservative management, her symptoms progressed. Given the severity of her symptoms, particularly of her symptomatic diaphragmatic hiatal hernia, she had elected for surgical intervention. Diagnostic studies including manometry and upper endoscopy were performed. Benefits and risks including bleeding, infection, recurrence, dysphagia, injury to the lung, need for further surgery was described at length. Informed consent was obtained. DESCRIPTION: The patient was brought into the operating room and placed in supine position. Preoperatively she had received heparin subcutaneously for DVT prophylaxis. After general induction, the abdomen was prepped and draped in standard sterile fashion. Moscoso catheter was placed. Ioban draping was placed along the abdomen. A timeout protocol was confirmed with the surgical team, for which the patient's name, procedure to be performed including DVT prophylaxis with bilateral SCDs, and preoperative antibiotics were also confirmed. A robotic da Margarita Xi system was prepped and primed. At 12 cm from the xiphoid to just below the umbilicus, proposed port sites were marked with indelible marker along the left axillary line, left mid-clavicular line with each ports were marked 10 cm from each other. A 5 mm 0 degrees laparoscopic trocar entry was performed along the left upper quadrant. The abdomen was insufflated to 15 mmHg pressure he tolerated well. Diagnostic laparoscopy demonstrated no injury to bowel, viscera, or mesentery. Peritoneal adhesions were confirmed along the left upper quadrant. The liver surface was unremarkable. No injury had occurred to the small bowel or viscera. Along the hiatus, a defect was found anteriorly. Next, one 8 mm robotic port was placed along the right upper abdomen. An 8-mm port was were placed along the left lateral abdominal wall. The camera 8-mm port was maintained along the epigastrium via the hernia defect. Another 12 mm port was placed along the left upper abdominal wall after exchanging the 5 mm port. Please note that the ports were placed at least 20 cm away from the target anatomy. Care was taken to check that each robotic arm were safely away from collision with the bed or the patient. At the epigastrium, a medium sized Victoria liver retractor was placed under direct visualization with the Iron Supervisory Civil Engineer placed over the right shoulder of the patient. The additional third robotic arm was placed along the left aspect of the patient. The patient was repositioned in reverse Trendelenburg position at 14-degrees after lowering the bed. The robot was docked along the left side of the patient. Using a grasper for arm 3, a grasper for arm 1, including vessel sealer for arm 2, the robotic system was docked and primed as described. Instruments were interchanged by the data control assistant. I had sat at the console. Initial attention was brought to the anterior hiatus where blunt dissection was performed using a grasper including vessel sealer. The previous fundoplasty was carefully dissected free circumferentially whereby moderate adhesions were confirmed. The dissection was carried well into the mediastinum where the hiatal hernia sac was found causing a retraction of the distal esophagus into the thoracic cavity. Moderate dissection was performed to free the Brandon fundoplasty. An incarcerated recurrent midline paraesophageal hiatal hernia 3 x 4 cm involving previous fundoplication was identified. Severe perigastric adhesions including along the liver surface requiring 2 hours of dissection was performed. The recurrent incarcerated hiatal hernia of 4 cm intraesophageal length was confirmed. The left and right crura was identified. Significant mobilization of the distal to mid esophagus into the mediastinum was performed. Circumferentially , the hernia sac was divided and from the esophagus including the previous distal fundoplasty. The sutures corresponding to the fundoplasty were divided using vessel sealer. Extended dissection occurred for 2 hours as the stomach was densely adherent. The measured defect was 4 cm axial length and 3 cm in width. After extensive dissection, the distal esophagus at least 2 cm was brought into the abdominal cavity. Once the hiatus and crura was dissected, 2-0 VLOC suture was placed as a running suture to re-approximate the diaphragmatic hiatus posteriorly including anteriorly leaving a 2 cm aperture otherwise corresponding to a 30-39-Rcimfv bougie size. To buttress the repair, a Loami Biopatch A was prepared along the back table and cut in a burnett-hole fashion as to reinforce the repair as an underlay. The mesh was placed along the crural repair and tagged using horizontal mattress sutures using 2-0 VLOC. I went to the head of the bed to perform intraoperative esophagogastroduodenoscopy. An Olympus gastroscope was passed through posterior oropharynx, where the GE junction was found distal to the diaphragmatic hiatus. The intra-abdominal esophageal length obtained during the case was over 2 cm. The stomach was entered. The duodenum was unremarkable. Retroflexion of the scope confirmed a Hill grade 1 lower esophageal valve. The stomach had been desufflated. No evidence of leaks were found. No full thickness mucosal defects of the esophagus or stomach were identified. This concluded the endoscopic portion of the case. The robot was undocked from the patient. I re-scrubbed into the case. All instruments and pneumoperitoneum were evacuated from the abdominal cavity. Incisions were reapproximated using 4-0 Monocryl in an interrupted subcuticular fashion. The 12-mm port site fascial defect was less than 8 mm in size. Dermabond was applied to the skin. Local anesthetic was infiltrated in all wounds for postop analgesia. Multiple intra-abdominal films were obtained. At the end of the procedure, needle, sponge, and instrument count was verified correct by the certified ophthalmic surgical assistant. The patient had tolerated the procedure well and was taken to the postanesthesia unit in stable condition. Intraoperative films were reviewed with the patient's family who were pleased with the level of care.
== END 2017-09-08 17:07 | disposition home or self-care (01) | DRG 327 ==
LOC: 2ORWHC 09:26 → 3SUR 16:43
PROVIDERS: ADMIT Surgery Plastic and Reconstructive Surgery; ATTEND Surgery Plastic and Reconstructive Surgery
PROC: 0BUT4JZ Supplement Diaphragm with Synthetic Substitute, Percutaneous Endoscopic Approach (ICD-10-PCS; 2017-09-07)
PROC: 0FN04ZZ Release Liver, Percutaneous Endoscopic Approach (ICD-10-PCS; 2017-09-07)
PROC: 8E0W4CZ Robotic Assisted Procedure of Trunk Region, Percutaneous Endoscopic Approach (ICD-10-PCS; 2017-09-07)
PROC: 0DJ08ZZ Inspection of Upper Intestinal Tract, Via Natural or Artificial Opening Endoscopic (ICD-10-PCS; 2017-09-07)
PROC: 0DQ44ZZ Repair Esophagogastric Junction, Percutaneous Endoscopic Approach (ICD-10-PCS; principal; 2017-09-07 11:35)
PROC: BD11ZZZ Fluoroscopy of Esophagus (ICD-10-PCS; 2017-09-08)
DX: K44.0 Diaphragmatic hernia with obstruction, without gangrene (principal); D83.9 Common variable immunodeficiency, unspecified; I42.9 Cardiomyopathy, unspecified; I50.32 Chronic diastolic (congestive) heart failure; I11.0 Hypertensive heart disease with heart failure; E11.39 Type 2 diabetes mellitus with other diabetic ophthalmic complication; J98.11 Atelectasis; K21.9 Gastro-esophageal reflux disease without esophagitis; K22.4 Dyskinesia of esophagus; I10 Essential (primary) hypertension; M79.7 Fibromyalgia; E78.5 Hyperlipidemia, unspecified; G89.4 Chronic pain syndrome; H40.9 Unspecified glaucoma; J44.9 Chronic obstructive pulmonary disease, unspecified; K66.0 Peritoneal adhesions (postprocedural) (postinfection); Z79.4 Long term (current) use of insulin; Z79.51 Long term (current) use of inhaled steroids; Z79.52 Long term (current) use of systemic steroids; Z79.899 Other long term (current) drug therapy; Z86.14 Personal history of Methicillin resistant Staphylococcus aureus infection; Z90.49 Acquired absence of other specified parts of digestive tract; Z98.42 Cataract extraction status, left eye; Z98.41 Cataract extraction status, right eye; Z90.79 Acquired absence of other genital organ(s); Z87.01 Personal history of pneumonia (recurrent); Z87.311 Personal history of (healed) other pathological fracture; Z96.89 Presence of other specified functional implants; Z88.1 Allergy status to other antibiotic agents; Z88.0 Allergy status to penicillin; Z88.2 Allergy status to sulfonamides; Z88.8 Allergy status to other drugs, medicaments and biological substances
CPT/HCPCS: 71045; 74210; 80051; 81003; 82310; 82565; 83735; 84100; 84520; 85025; 86850; 86900; 86901; 88302; 94640; 94760; 94762

== ENCOUNTER → 2017-11-05 | Outpatient (CLI) | payer BC ==
[2017-11-05 08:24] LABS: ALT 36 U/L (9-52); AST 39 U/L (14-36); Albumin 3.3 g/dL (3.5-5.0); Alkaline Phosphatase 76 U/L (38-126); Anion Gap 8 mmol/L; Blood Urea Nitrogen 20 mg/dL (7-17); Carbon Dioxide 30 mmol/L (22-30); Chloride 107 mmol/L (98-107); Cholesterol 153 mg/dL (<200); Glucose 79 mg/dL (74-99); HDL Cholesterol 51 mg/dL (40-60); LDL Cholesterol,Calculated 75 mg/dL (0-99); Potassium 4.7 mmol/L (3.5-5.1); Sodium 145 mmol/L (137-145); Total Bilirubin 0.2 mg/dL (0.2-1.3); Total Protein 6.2 g/dL (6.3-8.2); Triglycerides 136 mg/dL (<150)
[2017-11-05 17:53] LABS: Hemoglobin A1C 6.2 % (4.0-6.0)
== END | disposition home or self-care (01) ==
LOC: LABWHC1 07:35
PROVIDERS: ATTEND Internal Medicine Endocrinology, Diabetes & Metabolism
DX: E11.65 Type 2 diabetes mellitus with hyperglycemia (principal)
CPT/HCPCS: 36415; 80053; 80061; 82043; 82570; 83036

== ENCOUNTER → 2017-11-30 | Outpatient (CLI) | payer BC ==
--- NOTE | 2017-11-30 15:59 | BD ---
EXAMINATION TYPE: MG DEXA axial skeleton. DATE OF EXAM: 11/30/2017 COMPARISON: 03/15/2015 CLINICAL HISTORY: Height: 60 IN Weight: 127 LBS FRAX RISK QUESTIONS: Alcohol (3 or more units per day): NO Family History (Parent hip fracture): NO Glucocorticoids (More than 3mos): YES 20 MG/DAY FOR 15 YEARS (Ex: prednisone, prednisolone, methylprednisolone, dexamethasone, and hydrocortisone). History of Fracture in Adulthood: YES L-SPINE FX X 3 SINCE AGE 52; OMA FEET FX AGE 48; MULTIPLE RIB F X; RT WRIST Secondary Osteoporosis: 1. Type 1 Diabetes: YES 2. Hyperthyroidism: NO 3. Menopause before 45: AGE 46 4. Malnutrition: NO 5. Chronic liver disease: NO Rheumatoid Arthritis: YES Current Tobacco Use: NO RISK FACTORS HISTORY OF: Spine Fracture: YES L-SPINE X 3 When: AGE 52 History of Wrist Fracture: YES RT When: IN HER 50'S Active: MODERATE Diet low in dairy products/other sources of calcium: YES Postmenopausal woman: AGE 46 Take estrogen and/or progesterone medications: NOT NOW How long: AGE [age] Lost more than 2 inches in height since high school: YES 2 1/2" Adrenal Insufficiency: YES MEDICATIONS: Prednisone or other steroids: YES 20 MG PER DAY How Lon YEARS Osteoporosis Medications: NOT NOW Which medication: Boniva How Long: AGE [age] Additional Medications: CALCIUM, VIT D, PREDNISONE, ADVAIR, ALDACTONE, AMITRIPTYLINE, DIFLUCAN,CYPROH EPTADINE,GAMMAGARD LIQUID 10% INJECTION, INSULIN PUMP, IPRATROPIUM BROMIDE, KLOR-CON, LASIX LEXAPRO, LYRICA, MAXAIR, NOVOLOG, NYSTATIN,OXYCONTIN, SINGULAIR, TRAZODONE, WELLBUTRIN, XANAX, XOPENEX HFA, ZO COR, INTRATHECAL BUPILICAINE, EXAM MEASUREMENTS: Bone mineral densitometry was performed using the Secret System. Bone mineral density about the R hip (g/cm2): 0.734 Bone mineral density about the L hip (g/cm2): 0.711 T Score values are as follows: -----R Neck: -2.2 -----L Neck: -2.4 -----R Total: -1.5 -----L Total: -1.8 Bone mineral density has: Increased 7.9% since study of: 03/15/2015 IMPRESSION: Osteopenia (T Score between -2.5 and -1). There is slightly increased risk of fracture and the patient may be considered for treatment. Re-Screen 2-5 years. NOTE: T-SCORE=SD OF THE YOUNG ADULT MEAN.
== END | disposition home or self-care (01) ==
LOC: RADBDWWP 07:54
PROVIDERS: ATTEND Internal Medicine Endocrinology, Diabetes & Metabolism
DX: M85.80 Other specified disorders of bone density and structure, unspecified site (principal)
CPT/HCPCS: 77080

== ENCOUNTER → 2018-03-20 | Outpatient (CLI) | payer BC ==
[2018-03-20 07:58] LABS: ALT 43 U/L (9-52); AST 36 U/L (14-36); Albumin 3.4 g/dL (3.5-5.0); Alkaline Phosphatase 60 U/L (38-126); Anion Gap 4 mmol/L; Blood Urea Nitrogen 18 mg/dL (7-17); Carbon Dioxide 30 mmol/L (22-30); Chloride 104 mmol/L (98-107); Cholesterol 160 mg/dL (<200); Glucose 68 mg/dL (74-99); HDL Cholesterol 67 mg/dL (40-60); LDL Cholesterol,Calculated 73 mg/dL (0-99); Potassium 4.2 mmol/L (3.5-5.1); Sodium 138 mmol/L (137-145); Total Bilirubin 0.3 mg/dL (0.2-1.3); Total Protein 5.9 g/dL (6.3-8.2); Triglycerides 98 mg/dL (<150)
[2018-03-20 20:06] LABS: Hemoglobin A1C 6.3 % (4.0-6.0)
== END | disposition home or self-care (01) ==
LOC: LABWHC1 06:46
PROVIDERS: ATTEND Internal Medicine Endocrinology, Diabetes & Metabolism
DX: E11.65 Type 2 diabetes mellitus with hyperglycemia (principal)
CPT/HCPCS: 36415; 80053; 80061; 82043; 82570; 83036

== ENCOUNTER → 2018-03-27 | Outpatient (CLI) | payer BC ==
[2018-03-27 08:10] VITALS: BP 111/58; PULSE 77; TEMP 97.6; BMI 25.0
--- NOTE | 2018-03-27 09:06 | P.HPOB ---
History of Present Illness H&P Date: 03/27/18 Chief Complaint: The patient is here for her routine gynecologic exam. This is a 62-year-old G3 PIII with an LMP of 1998. The patient is without gynecologic complaints and denies any postmenopausal bleeding. Review of Systems The patient has lost 8 pounds over the last year. She denies respiratory, cardiac, or G.I. problems. Past Medical History Past Medical History: Asthma, COPD, Diabetes Mellitus (Type II diabetes requiring insulin), Eye Disorder, Fibromyalgia, GERD/Reflux, Hyperlipidemia, Hypertension, Musculoskeletal Disorder, Pneumonia, Respiratory Disorder, Skin Disorder Additional Past Medical History / Comment(s): Bronchial asthma, tracheobronchomalacia, common variable immunoglobulin deficiency. Chronic back problems. chronic steroid use, suspected component of adrenal insufficiency due to chronic steroid use. Hiatal hernia. 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 Mycobacterium gordonae soft tissue infection. cataracts, glaucoma, fibromyalgia, chronic pain, compression fracture of the spine. History of Any Multi-Drug Resistant Organisms: MRSA Date of last positivie culture/infection: 2010 MDRO Source:: right hand Past Surgical History: Appendectomy, Breast Surgery, Cholecystectomy, Tubal Ligation Additional Past Surgical History / Comment(s): MULT BRONCHS, WASHINGS, LAST 04/17. EXC OMA CATARACT. BLEPHAROPLASTY/ R&L BREAST BIOPSIES; PORT A CATH IN LEFT CHEST-CHANGED TO RT CHEST,EXC MYCOBACTERIUM AREAS RT ARM 2011; UPPER TEETH EXTRACTED. RT SALPINGECTOMY/FALLOPIAN TUBE REMOVED, I&D BOIL.Jul [facility] EYE AND MUSCLE SURGERY; - mouth (bone) surgery. Pain pump insertion to left buttocks - October 2016. Colonoscopy 2014. Hiatal hernia surgeries 2014& 2016. Past Anesthesia/Blood Transfusion Reactions: Motion Sickness, Postoperative Nausea & Vomiting (PONV) Past Psychological History: Anxiety, Depression Additional Psychological History / Comment(s): . Lives in the family home with her . Not employed outside of the home. Lifelong nonsmoker. No significant history of alcohol use. No history of recreational drug use. No international travels. There are pet dogs in the home. There are still children in the home that they are responsible for. Smoking Status: Never smoker Past Alcohol Use History: None Reported Past Drug Use History: None Reported - Past Family History Mother Family Medical History: Cancer, Congestive Heart Failure (CHF) Additional Family Medical History / Comment(s): HAD OPEN HEART SURGERY, BREAST CANCER Father Additional Family Medical History / Comment(s): r/t suicide Medications and Allergies Home Medications Medication Instructions Recorded Confirmed Type Escitalopram [Lexapro] 30 mg PO QAM 01/01/14 03/27/18 History Montelukast [Singulair] 10 mg PO HS 01/01/14 03/27/18 History Spironolactone [Aldactone] 25 mg PO QID 01/01/14 03/27/18 History ALPRAZolam [Xanax] 0.5 mg PO TID PRN 01/02/14 03/27/18 History Potassium Chloride ER [K-Dur 20] 60 meq PO BID 11/06/14 03/27/18 History Amitriptyline HCl [Elavil] 30 mg PO HS 12/07/14 03/27/18 History Albuterol Sulfate [Ventolin HFA] 2 puff INHALATION RT-QID PRN 05/12/15 03/27/18 History Fluconazole [Diflucan] 100 mg PO DAILY PRN 07/06/15 03/27/18 History Budesonide [Pulmicort] 0.5 mg INHALATION RT-BID 09/09/16 03/27/18 History predniSONE 20 mg PO DAILY 09/09/16 03/27/18 History traZODone HCL 75 mg PO HS 09/10/16 03/27/18 History Fluticasone/Salmeterol [Advair 1 puff INHALATION RT-BID 07/24/17 03/27/18 History 500-50 Diskus] Gammagard 10 gm IV Q28D 07/24/17 03/27/18 History Insulin Aspart (For Pump) [NovoLOG 0.01 unit SQ-PUMP CONTINUOUS 07/24/17 History (For Pump)] Ipratropium Nebulized [Atrovent 0.5 mg INHALATION RT-Q6H PRN 07/24/17 03/27/18 History Nebulized] buPROPion XL [Wellbutrin XL] 450 mg PO DAILY 07/24/17 03/27/18 History Furosemide [Lasix] 40 mg PO BID 09/07/17 03/27/18 History Hyoscyamine Elixir [Levsin 0.125 mg PO Q6HR PRN #15 ml 09/25/17 03/27/18 Rx 0.125MG/ML Drops] Bupivicaine 1 pump INTRATHECA DIRECTED 11/23/17 03/27/18 History Denosumab [Prolia] 60 mg SQ DIRECTED 03/27/18 03/27/18 History Allergies Allergy/AdvReac Type Severity Reaction Status Date / Time cefuroxime axetil Allergy Severe Abdominal Verified 03/27/18 08:02 [From Ceftin] Pain ciprofloxacin HCl Allergy Severe Abdominal Verified 03/27/18 08:02 [From Cipro] Pain NSAIDS (Non-Steroidal Allergy Dyspnea Verified 03/27/18 08:02 Anti-Inflamma erythromycin base AdvReac Unknown Abdominal Verified 03/27/18 08:02 [Erythromycin Base] Pain sulfamethoxazole AdvReac Unknown Abdominal Verified 03/27/18 08:02 [From Bactrim] Pain trimethoprim [From Bactrim] AdvReac Unknown Abdominal Verified 03/27/18 08:02 Pain indomethacin [From Indocin] AdvReac Confusion Verified 03/27/18 08:02 indomethacin sodium AdvReac Confusion Verified 03/27/18 08:02 [From Indocin] Penicillins AdvReac Nausea & Verified 03/27/18 08:02 Vomiting Sulfa (Sulfonamide AdvReac Abdominal Verified 03/27/18 08:02 Antibiotics) Pain Exam Vital Signs Temp Pulse BP 03/27/18 08:03 97.6 F 77 111/58 Intake and Output 03/26/18 03/27/18 03/27/18 22:59 06:59 14:59 Other: Weight 58.06 kg Height 5'0", BMI 25.0. This is a well-developed well-nourished white female who is alert and oriented times 3 in no acute distress. HEENT: Within normal limits. NECK: Supple without mass or thyromegaly. CHEST AND LUNGS: prolonged expiration without wheezes. HEART: Regular rate and rhythm. BREASTS: Are without mass or discharge. AXILLARY EXAM: Negative for adenopathy. BACK: Negative for CVA tenderness. ABDOMEN: Soft, nontender, without palpable masses. PELVIC EXAM: Normal external genitalia with moderate atrophy. Cervix and vagina appear normal with moderate atrophy. There is no unusual discharge. There is no evidence of prolapse. The uterus is midposition, nongravid size and nontender. There are no palpable adnexal masses or tenderness. RECTAL EXAM: rectovaginal exam is negative for mass or tenderness and is negative for occult blood. EXTREMITIES: Nontender. IMPRESSION: 1. 62-year-old menopausal female with normal gynecologic exam. 2. Multiple medical problems. 3. History of osteoporosis currently on Prolia as prescribed by her operations team leader. PLAN: 1. Pap smear was performed. 2. Self breast awareness was discussed. 3. Screening mammogram will be due later this month and the order slip was given to the patient for this. 4. Osteoporosis management was discussed. I have stressed the importance of adequate calcium, vitamin D and regular exercise. She will continue to do bone density testing and treatment through Dr. Ledesma, her operations team leader. 5. She will return in one year.
== END ==
LOC: WWCWWP 07:47
PROVIDERS: ATTEND Obstetrics & Gynecology
DX: Z53.9 Procedure and treatment not carried out, unspecified reason (principal)

== ENCOUNTER → 2018-04-02 | Outpatient (CLI) | payer BC ==
--- NOTE | 2018-04-02 22:30 | PN ---
PROGRESS NOTE Alley is 62 with obstructive sleep apnea. The patient is an AHI of 24 based on previous sleep studies. She did lose weight and she had also dental extraction which changed her facial features. As such, she was having difficulties with her mask seal. We have tried different masks on her in the office and she unfortunately did not respond. This was affecting her compliance in general. On today's evaluation, she is coming in for followup. She is on an APAP with a minimum pressure of 5, maximum pressure of 20. Her P90 pressure is at 15.3. She is averaging 4.9 hours of CPAP use per night. Her leak factor is not high as the patient is using AirFit touch fullface mask. AHI while on treatment is down to 4.6. The patient is exploring other mask options. I went through a lengthy list of fullface mask and ultimately we decided to proceed with a Dreamware fullface mask which gave the patient a good fit at the small size. She is doing well otherwise. She has chronic pain. She has been on chronic steroid treatment. She has also bronchial asthma which is currently inactive and stable. REVIEW OF SYSTEMS: 12-point review of system was done. Positive for chronic pain and the patient has a morphine pain pump. She has no nasal congestion. Occasional cough and sputum production. Occasional wheezing. No chest pain. No heartburn. No nausea, vomiting. No other complaints otherwise. PHYSICAL EXAMINATION: BP is 138/82, pulse 84, respirations 16, temperature 98.9, saturation 94% on room air. Weight is 129. Height is 5 feet and 1/2 inches BMI 24.7. GENERAL APPEARANCE: Calm, comfortable. Head is atraumatic, normocephalic. NECK: Supple. There is no JVD. No goiter or neck masses. The patient is edentulous. LUNGS: Clear to auscultation. HEART: Sounds regular rate and rhythm. Normal S1, S2. No S3. No murmurs. ABDOMEN: Soft, nontender. No organomegaly. EXTREMITIES: No edema. No cyanosis or clubbing. IMPRESSION: 1. Obstructive sleep apnea moderate in severity AHI of 24, still on APAP. 2. Severe bronchial asthma. 3. Obesity with history of weight loss affecting her mask seal while using a full-face mask. 4. Chronic pain. 5. Chronic fatigue and sleepiness. 6. Chronic steroid dependence. 7. Common variable immunoglobulin deficiency, acquired. PLAN: 1. We will try the [employer] fullface mask. 2. Continue APAP mode. 3. Humidity will be place to automatic mode. 4. Will follow. [id number] / IJN: [id number] /
== END | disposition home or self-care (01) ==
LOC: SLEEP 16:20
PROVIDERS: ATTEND Internal Medicine Critical Care Medicine
DX: G47.33 Obstructive sleep apnea (adult) (pediatric) (principal); D83.8 Other common variable immunodeficiencies; G89.29 Other chronic pain; J45.909 Unspecified asthma, uncomplicated; E66.9 Obesity, unspecified; R53.82 Chronic fatigue, unspecified; Z99.89 Dependence on other enabling machines and devices; Z68.24 Body mass index [BMI] 24.0-24.9, adult; Z79.52 Long term (current) use of systemic steroids

== ENCOUNTER → 2018-05-21 | Outpatient (CLI) | payer MEDICARE ==
--- NOTE | 2018-05-21 10:59 | MM ---
Reason for exam: screening (asymptomatic). Last mammogram was performed 1 year and 1 month ago. History: Patient is postmenopausal. Family history of breast cancer in mother at age 75 and breast cancer in maternal grandmother at age 75. Benign excisional biopsy of the right breast, 1989. Excisional biopsy of the left breast. Took estrogen for 6 years. Physical Findings: A clinical breast exam by your physician is recommended on an annual basis and results should be correlated with mammographic findings. MG 3D Screening Mammo W/Cad Bilateral CC and MLO view(s) were taken. Prior study comparison: April 20, 2017, bilateral MG screening mammo w CAD. March 15, 2016, bilateral MG screening mammo w CAD. There are scattered fibroglandular densities. No significant changes when compared with prior studies. ASSESSMENT: Benign, BI-RAD 2 RECOMMENDATION: Routine screening mammogram of both breasts in 1 year.
== END | disposition home or self-care (01) ==
LOC: RADMAMWWP 07:01
PROVIDERS: ATTEND Obstetrics & Gynecology
DX: Z12.31 Encounter for screening mammogram for malignant neoplasm of breast (principal)
CPT/HCPCS: 77063; 77067

== ENCOUNTER → 2018-07-04 | Outpatient (CLI) | payer MEDICARE ==
[2018-07-04 18:04] LABS: Albumin 4.1 g/dL (3.80-4.90); Albumin/Globulin Ratio 1.95 (1.20-2.10); Anion Gap 14.8 mmol/L (4.00-12.00); Calcium 8.8 mg/dL (8.7-10.3); Carbon Dioxide 19.2 mmol/L (21.6-31.8); Globulin 2.1 g/dL (2.1-3.7); LDL Cholesterol,Calculated 88.2 mg/dL (0.0-131.0); Potassium 4.6 mmol/L (3.5-5.5); Total Bilirubin 0.3 mg/dL (0.2-1.2); Total Protein 6.2 g/dL (6.2-8.2); VLDL Calculation 17.8 mg/dL (5.00-40.00)
[2018-07-04 18:09] LABS: Hemoglobin A1C 6.2 % (4.0-6.0)
== END ==
LOC: LABWHC1 08:20
PROVIDERS: ATTEND Internal Medicine Endocrinology, Diabetes & Metabolism
DX: E11.65 Type 2 diabetes mellitus with hyperglycemia (principal)
CPT/HCPCS: 36415; 80053; 80061; 82043; 82570; 83036

== ENCOUNTER → 2019-02-17 | Outpatient (CLI) | payer MEDICARE ==
[2019-02-17 16:47] LABS: African American GFR (CKD) 89.7 (60.0-200.0); Albumin 3.7 g/dL (3.80-4.90); Albumin/Globulin Ratio 2.47 (1.60-3.17); Anion Gap 6.2 mmol/L (4.00-12.00); Calcium 8.8 mg/dL (8.7-10.3); Carbon Dioxide 27.8 mmol/L (21.6-31.8); Globulin 1.5 g/dL (1.6-3.3); LDL Cholesterol,Calculated 86.6 mg/dL (0.0-131.0); Potassium 4.4 mmol/L (3.5-5.5); Total Bilirubin 0.3 mg/dL (0.2-1.2); Total Protein 5.2 g/dL (6.2-8.2); VLDL Calculation 20.4 mg/dL (5.00-40.00)
[2019-02-17 18:11] LABS: Hemoglobin A1C 6.4 % (4.0-6.0)
== END | disposition home or self-care (01) ==
LOC: LABWHC1 08:48
PROVIDERS: ATTEND Internal Medicine Endocrinology, Diabetes & Metabolism
DX: E11.65 Type 2 diabetes mellitus with hyperglycemia (principal)
CPT/HCPCS: 36415; 80053; 80061; 82043; 82570; 83036; 84443

== ENCOUNTER 2019-04-09 09:22 | Emergency (ER) | payer MEDICARE ==
[2019-04-09] MEDS ORDERED: ALBUTEROL NEBULIZED 2.5 MG/3 ML INHALATION STA (09:56)
[2019-04-09] MEDS ORDERED: IPRATROPIUM 0.5 MG/2.5 ML NEBU INHALATION STA (09:56)
--- NOTE | 2019-04-09 10:02 | ED ---
General Adult HPI - General Chief complaint: Shortness of Breath Stated complaint: SOB/pneumonia Time Seen by Provider: 04/09/19 09:41 Source: patient, family Mode of arrival: wheelchair Limitations: no limitations - History of Present Illness Initial comments: Dictation was produced using [employer] dictation software. please excuse any g rammatical, word or spelling errors. Chief Complaint: 63-year-old female past medical history of COPD and other comorbid conditions presents with shortness of breath 2 days. History of Present Illness: Patient is 63-year-old female she presents shortness of breath 2 days. Patient has a history of COPD. Since yesterday she has been having worsening dyspnea. Patient does have care with pulmonology Dr. Kothari. One week ago patient had back surgery for chronic back pain. Postoperatively patient's condition decreased. She was found to have multifocal pneumonia was admitted to the intensive care unit where she stayed there for multiple days. Patient was just discharged 2 or 3 days ago. Patient was discharged with stable clinical condition. Symptoms began worsening yesterday. Denies any constitutional symptoms. Patient states she does have some pleuritic bilateral mid posterior chest pain. She does however report that her dyspnea is somewhat similar to her usual COPD exacerbations. The ROS documented in this emergency department record has been reviewed and co nfirmed by me. Those systems with pertinent positive or negative responses have been documented in the HPI. All other systems are other negative and/or noncontributory. PHYSICAL EXAM: General Impression: Alert and oriented x3, mildly dyspneic HEENT: Normocephalic atraumatic, extra-ocular movements intact, pupils equal and reactive to light bilaterally, mucous membranes moist. Cardiovascular: Heart regular rate and rhythm, S1&S2 audible, no murmurs, rubs or gallops Chest: Diffuse wheezing Abdomen: Bowel sounds present, abdomen soft, non-tender, non-distended, no organomegaly Musculoskeletal: Pulses present and equal in all extremities, no peripheral edema Motor: no focal deficits noted Neurological: CN II-XII grossly intact, no focal motor or sensory deficits noted Skin: Intact with no visualized rashes Psych: Normal affect and mood ED course: 73-year-old female presents with chief complaint of dyspnea. Patient was postop day 6 or 7 status post back surgery. Vital signs upon arrival are within acceptable limits. Laboratory evaluation obtained. Leukocytosis of 15.6 which could be from stress or pulmonary infection. Coag panel unremarkable. Sodium is 5.3 with slight hemolysis. Rest of labs are unremarkable. Chest x-ray shows bilateral infiltrate and small effusion. Given that there is concern of blood clot given patient is postop. CTA shows no evidence of PE. There is findings to suggest right lower lobe aspiration versus consolidation which could relate to pneum onia. Patient also has particular nodular interstitial opacities. Patient also has incidental finding of right breast soft tissue mass. 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 Kothari who reviewed patient's films and chart. Recommends patient be discharged with prescription for moxifloxacin. Patient is resting comfortably at bedside. She is coughing however shows no signs of acute respiratory distress. Patient given a donut. She is told to continue her COPD medications. Patient was to follow-up with Dr. Kothari EKG interpretation: Ventricular rate 95, normal sinus rhythm,. 152, care is 84, QTc 434. No CO prolongation, no QTC prolongation, no ST or T-wave changes noted. Overall, this EKG is unremarkable - Related Data Home Medications Medication Instructions Recorded Confirmed Escitalopram [Lexapro] 30 mg PO QAM 01/01/14 04/09/19 Spironolactone [Aldactone] 25 mg PO TID 01/01/14 04/09/19 ALPRAZolam [Xanax] 0.5 mg PO TID 01/02/14 04/09/19 Potassium Chloride ER [K-Dur 20] 60 meq PO BID 11/06/14 04/09/19 Amitriptyline HCl [Elavil] 30 mg PO HS 12/07/14 04/09/19 Albuterol Sulfate [Ventolin HFA] 2 puff INHALATION RT-QID PRN 05/12/15 04/09/19 predniSONE 20 mg PO DAILY 09/09/16 04/09/19 traZODone HCL 75 mg PO HS 09/10/16 04/09/19 Gammagard 10 gm IV Q28D 07/24/17 04/09/19 Insulin Aspart (For Pump) [NovoLOG 0.01 unit SQ-PUMP CONTINUOUS 07/24/17 04/09/19 (For Pump)] buPROPion XL [Wellbutrin XL] 450 mg PO DAILY 07/24/17 04/09/19 Furosemide [Lasix] 40 mg PO BID 09/07/17 04/09/19 Bupivicaine 1 dose INTRATHECA DIRECTED 11/23/17 04/09/19 Budesonide [Pulmicort] 1 mg INHALATION RT-BID 04/09/19 04/09/19 Fluticasone/Salmeterol [Advair Hfa 2 puff INHALATION RT-BID 04/09/19 04/09/19 230-21 Mcg Inhaler] Pantoprazole Sodium [Protonix] 20 mg PO DAILY 04/09/19 04/09/19 Pravastatin Sodium [Pravachol] 10 mg PO DAILY 04/09/19 04/09/19 Pregabalin [Lyrica] 100 mg PO TID 04/09/19 04/09/19 oxyCODONE-APAP 5-325MG [Percocet 1 tab PO DAILY PRN 04/09/19 04/09/19 5-325 mg] traMADol HCL [Ultram] 75 mg PO HS PRN 04/09/19 04/09/19 Previous Rx's Medication Instructions Recorded Moxifloxacin HCl [Avelox] 400 mg PO DAILY 5 Days #5 tablet 04/09/19 Allergies Allergy/AdvReac Type Severity Reaction Status Date / Time cefuroxime axetil AdvReac Severe Abdominal Verified 04/09/19 10:25 [From Ceftin] Pain ciprofloxacin HCl AdvReac Severe Abdominal Verified 04/09/19 10:25 [From Cipro] Pain erythromycin base AdvReac Unknown Abdominal Verified 04/09/19 10:25 [Erythromycin Base] Pain sulfamethoxazole AdvReac Unknown Abdominal Verified 04/09/19 10:25 [From Bactrim] Pain trimethoprim [From Bactrim] AdvReac Unknown Abdominal Verified 04/09/19 10:25 Pain crisaborole [From Eucrisa] AdvReac Rash/Hives Verified 04/09/19 10:25 indomethacin [From Indocin] AdvReac Confusion Verified 04/09/19 10:25 indomethacin sodium AdvReac Confusion Verified 04/09/19 10:25 [From Indocin] NSAIDS (Non-Steroidal AdvReac Dyspnea Verified 04/09/19 10:25 Anti-Inflamma Penicillins AdvReac Nausea & Verified 04/09/19 10:25 Vomiting Sulfa (Sulfonamide AdvReac Abdominal Verified 04/09/19 10:25 Antibiotics) Pain Review of Systems ROS Statement: Those systems with pertinent positive or pertinent negative responses have been documented in the HPI. ROS Other: All systems not noted in ROS Statement are negative. Past Medical History Past Medical History: Asthma, COPD, Diabetes Mellitus, Eye Disorder, Fibromyalgia, GERD/Reflux, Hyperlipidemia, Hypertension, Musculoskeletal Disorder, Pneumonia, Respiratory Disorder, Skin Disorder Additional Past Medical History / Comment(s): Bronchial asthma, tracheobronchomalacia, common variable immunoglobulin deficiency. Chronic back problems. chronic steroid use, suspected component of adrenal insufficiency due to chronic steroid use. Hiatal hernia. 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 Mycobacterium gordonae soft tissue infection. cataracts, glaucoma, fibromyalgia, chronic pain, compression fracture of the spine. History of Any Multi-Drug Resistant Organisms: MRSA Date of last positivie culture/infection: 2010 MDRO Source:: right hand Past Surgical History: Appendectomy, Back Surgery, Breast Surgery, Cholecystectomy, Tubal Ligation Additional Past Surgical History / Comment(s): MULT BRONCHS, WASHINGS, LAST 04/17/14. EXC [facility]MA CATARACT. BLEPHAROPLASTY/ R&L BREAST BIOPSIES; PORT A CATH IN LEFT CHEST-CHANGED TO RT CHEST,EXC MYCOBACTERIUM AREAS RT ARM 2011; UPPER TEETH EXTRACTED. RT SALPINGECTOMY/FALLOPIAN TUBE REMOVED, I&D BOIL.Jul [facility] MUSCLE SURGERY; - mouth (bone) surgery. Pain pump insertion to left buttocks - October 2016. Colonoscopy 2014. Hiatal hernia surgeries 2014&2015. Past Anesthesia/Blood Transfusion Reactions: Motion Sickness, Postoperative Nausea & Vomiting (PONV) Past Psychological History: Anxiety, Depression Smoking Status: Never smoker Past Alcohol Use History: None Reported Past Drug Use History: None Reported - Past Family History Mother Family Medical History: Cancer, Congestive Heart Failure (CHF) Additional Family Medical History / Comment(s): HAD OPEN HEART SURGERY, BREAST CANCER Father Additional Family Medical History / Comment(s): r/t suicide General Exam Limitations: no limitations Course Vital Signs 04/09/19 04/09/19 04/09/19 09:31 10:27 10:34 Temperature 98 F Pulse Rate 97 90 Respiratory 18 20 Rate Blood Pressure 117/73 O2 Sat by Pulse 96 Oximetry 04/09/19 10:51 Temperature Pulse Rate 96 Respiratory Rate Blood Pressure O2 Sat by Pulse Oximetry Medical Decision Making - Lab Data Result diagrams: 04/09/19 10:14 04/09/19 10:14 Lab Results 04/09/19 04/09/19 04/09/19 Range/Units 10:14 10:14 10:14 WBC 15.6 H (3.8-10.6) k/uL RBC 4.54 (3.80-5.40) m/uL Hgb 12.5 (11.4-16.0) gm/dL Hct 40.6 (34.0-46.0) % MCV 89.3 D (80.0-100.0) fL MCH 27.6 (25.0-35.0) pg MCHC 30.9 L (31.0-37.0) g/dL RDW 22.6 H (11.5-15.5) % Plt Count 416 D (150-450) k/uL Neutrophils % 93 % Lymphocytes % 3 % Monocytes % 2 % Eosinophils % 1 % Basophils % 0 % Neutrophils # 14.5 H (1.3-7.7) k/uL Lymphocytes # 0.5 L (1.0-4.8) k/uL Monocytes # 0.3 (0-1.0) k/uL Eosinophils # 0.1 (0-0.7) k/uL Basophils # 0.0 (0-0.2) k/uL Hypochromasia Moderate Anisocytosis Moderate Macrocytosis Slight PT (9.0-12.0) sec INR (<1.2) APTT (22.0-30.0) sec Sodium 140 (137-145) mmol/L Potassium 5.3 H (3.5-5.1) mmol/L Chloride 105 (98-107) mmol/L Carbon Dioxide 24 (22-30) mmol/L Anion Gap 11 mmol/L BUN 23 H (7-17) mg/dL Creatinine 0.78 (0.52-1.04) mg/dL Est GFR (CKD-EPI)AfAm >90 (>60 ml/min/1.73 sqM) Est GFR (CKD-EPI)NonAf 80 (>60 ml/min/1.73 sqM) Glucose 147 H (74-99) mg/dL Calcium 9.4 (8.4-10.2) mg/dL Total Bilirubin 0.7 (0.2-1.3) mg/dL AST 73 H (14-36) U/L ALT 64 H (9-52) U/L Alkaline Phosphatase 115 (38-126) U/L Troponin I (0.000-0.034) ng/mL NT-Pro-B Natriuret Pep 72 pg/mL Total Protein 7.6 (6.3-8.2) g/dL Albumin 4.0 (3.5-5.0) g/dL 04/09/19 04/09/19 Range/Units 10:14 10:14 WBC (3.8-10.6) k/uL RBC (3.80-5.40) m/uL Hgb (11.4-16.0) gm/dL Hct (34.0-46.0) % MCV (80.0-100.0) fL MCH (25.0-35.0) pg MCHC (31.0-37.0) g/dL RDW (11.5-15.5) % Plt Count (150-450) k/uL Neutrophils % % Lymphocytes % % Monocytes % % Eosinophils % % Basophils % % Neutrophils # (1.3-7.7) k/uL Lymphocytes # (1.0-4.8) k/uL Monocytes # (0-1.0) k/uL Eosinophils # (0-0.7) k/uL Basophils # (0-0.2) k/uL Hypochromasia Anisocytosis Macrocytosis PT 10.1 (9.0-12.0) sec INR 0.9 (<1.2) APTT 22.9 (22.0-30.0) sec Sodium (137-145) mmol/L Potassium (3.5-5.1) mmol/L Chloride (98-107) mmol/L Carbon Dioxide (22-30) mmol/L Anion Gap mmol/L BUN (7-17) mg/dL Creatinine (0.52-1.04) mg/dL Est GFR (CKD-EPI)AfAm (>60 ml/min/1.73 sqM) Est GFR (CKD-EPI)NonAf (>60 ml/min/1.73 sqM) Glucose (74-99) mg/dL Calcium (8.4-10.2) mg/dL Total Bilirubin (0.2-1.3) mg/dL AST (14-36) U/L ALT (9-52) U/L Alkaline Phosphatase (38-126) U/L Troponin I <0.012 (0.000-0.034) ng/mL NT-Pro-B Natriuret Pep pg/mL Total Protein (6.3-8.2) g/dL Albumin (3.5-5.0) g/dL Disposition Clinical Impression: Pneumonia Disposition: HOME SELF-CARE Condition: Good Instructions (If sedation given, give patient instructions): Bacterial Pneumonia (ED) Prescriptions: Moxifloxacin HCl [Avelox] 400 mg PO DAILY 5 Days #5 tablet Is patient prescribed a controlled substance at d/c from ED?: No Referrals: Ponce Kothari MD [Primary Care Provider] - 1-2 days Time of Disposition: 12:04
[2019-04-09 10:36] LABS: Anisocytosis Moderate; Basophils % (A) 0 %; Eosinophils # (A) 0.1 k/uL (0-0.7); Eosinophils % (A) 1 %; HCT 40.6 % (34.0-46.0); HGB 12.5 gm/dL (11.4-16.0); Hypochromasia Moderate; Lymphocytes # (A) 0.5 k/uL (1.0-4.8); Lymphocytes % (A) 3 %; MCH 27.6 pg (25.0-35.0); MCHC 30.9 g/dL (31.0-37.0); Macrocytosis Slight; Mean Platelet Volume 7.6; Monocytes # (A) 0.3 k/uL (0-1.0); Monocytes % (A) 2 %; Neutrophils # (A) 14.5 k/uL (1.3-7.7); Neutrophils % (A) 93 %; RBC 4.54 m/uL (3.80-5.40); RDW 22.6 % (11.5-15.5); WBC 15.6 k/uL (3.8-10.6)
[2019-04-09 10:37] LABS: INR 0.9 (<1.2); Partial Thromboplastin Time 22.9 sec (22.0-30.0); Prothrombin Time 10.1 sec (9.0-12.0)
[2019-04-09 10:38] LABS: African American GFR (CKD) >90 (>60 ml/min/1.73 sqM); Anion Gap 11 mmol/L; Blood Urea Nitrogen 23 mg/dL (7-17); Calcium 9.4 mg/dL (8.4-10.2); Carbon Dioxide 24 mmol/L (22-30); Chloride 105 mmol/L (98-107); Glucose 147 mg/dL (74-99); MCV 89.3 fL (80.0-100.0); Platelet Count 416 k/uL (150-450); Potassium 5.3 mmol/L (3.5-5.1); Sodium 140 mmol/L (137-145); Total Bilirubin 0.7 mg/dL (0.2-1.3); Total Protein 7.6 g/dL (6.3-8.2)
[2019-04-09 10:39] LABS: ALT 64 U/L (9-52); AST 73 U/L (14-36); Alkaline Phosphatase 115 U/L (38-126)
--- NOTE | 2019-04-09 11:25 | XR ---
EXAMINATION TYPE: XR chest 2V DATE OF EXAM: 04/09/2019 COMPARISON: 09/15/2018 TECHNIQUE: PA and lateral views submitted. HISTORY: Pain FINDINGS: Mediport catheter seen. The tip of the catheter cannot be confirmed to be intraluminal. Bilateral con solidation and small effusions. No pneumothorax. Heart size stable. Atherosclerotic change aorta. Dif fuse osteopenia. IMPRESSION: 1. Bilateral infiltrate and small effusion. 2. Tip of the Mediport catheter is in indeterminate location as discussed above.
--- NOTE | 2019-04-09 11:37 | CT ---
EXAMINATION TYPE: CT angio chest DATE OF EXAM: 04/09/2019 11:16 AM COMPARISON: Chest x-ray dated 04/09/2019 HISTORY: SOB, pneumonia CT DLP: 143.7 mGycm Automated exposure control for dose reduction was used. CONTRAST: CTA scan of the thorax is performed with IV Contrast, patient injected with 52 mL of Isovue 370, pulm onary embolism protocol. . FINDINGS: LUNGS: There are a few interstitial reticular and nodular opacities seen in the right upper, right mi ddle and right lower lobes. Larger areas of consolidation are seen posterior bilateral lower lobes. A few air bronchograms are seen internally. There appears to be debris seen within the right lower lob e mainstem bronchus extending into the segmental and subsegment segmental branches. Otherwise, the tr acheobronchial tree is patent. Trace bilateral pleural effusions. MEDIASTINUM: There is satisfactory enhancement of the pulmonary artery and its branches, there is no CT evidence for pulmonary embolism. There are no greater than 1 cm hilar or mediastinal lymph nodes. Small pericardial effusion. OTHER: There is a cyst seen in the posterior lateral aspect of the right lobe of the liver measuring up to 1.6 cm. Otherwise, visualized upper abdomen is grossly unremarkable. There is a retroareolar soft tissue lesion measuring up to 3.5 cm on the right with a few areas of cu rvilinear calcification. IMPRESSION: NO EVIDENCE OF PULMONARY EMBOLISM. FINDINGS SUGGESTIVE OF RIGHT LOWER LOBE ASPIRATION WITH CONSOLIDATION WHICH MAY RELATED TO PNEUMONIA OR ATELECTASIS. RETICULAR NODULAR INTERSTITIAL OPACITIES IN THE RIGHT LUNG MAY BE INFECTIOUS OR INFLAMMATORY. CONSIDE R REPEAT EXAM IN 3-6 MONTHS TO ENSURE RESOLUTION. SMALL PERICARDIAL EFFUSION. RIGHT BREAST SOFT TISSUE MASS MAY RELATED TO NORMAL FAT, BUT UNDERLYING MASS IS NOT EXCLUDED. CONSIDE R REPEAT MAMMOGRAM.
[2019-04-09 12:07] VITALS: BP 139/63; PULSE 90; RESP 18; TEMP 99
== END 2019-04-09 12:06 | disposition home or self-care (01) ==
LOC: EC 09:22
DX: J18.9 Pneumonia, unspecified organism (principal); J44.0 Chronic obstructive pulmonary disease with (acute) lower respiratory infection; E11.9 Type 2 diabetes mellitus without complications; E78.5 Hyperlipidemia, unspecified; K21.9 Gastro-esophageal reflux disease without esophagitis; I10 Essential (primary) hypertension; F41.9 Anxiety disorder, unspecified; F32.9 Major depressive disorder, single episode, unspecified; Z79.4 Long term (current) use of insulin; Z79.899 Other long term (current) drug therapy; Z79.52 Long term (current) use of systemic steroids; Z88.0 Allergy status to penicillin; Z88.1 Allergy status to other antibiotic agents; Z88.2 Allergy status to sulfonamides; Z88.6 Allergy status to analgesic agent; Z88.8 Allergy status to other drugs, medicaments and biological substances; I31.3 Pericardial effusion (noninflammatory); Z98.890 Other specified postprocedural states
CPT/HCPCS: 36415; 94640; 93005; 83880; 80053; 84484; 85025; 85610; 85730; 71046; 71275; 99285; Q9967

== ENCOUNTER → 2019-04-18 | Outpatient (CLI) | payer MEDICARE ==
[~2019-04-18] MED LIST changes: +ACETAMINOPHEN TAB 325 MG TAB PO ONE; -CHLORHEXIDINE GLUCONATE 15 ML CUP MUCOUS MEM ONE; -DEXAMETHASONE SOD PHOSPHATE 10 MG/ML 1 ML VIAL IV ONE; -ENOXAPARIN 40 MG/0.4 ML SYRINGE SQ STA; -HEPARIN SODIUM,PORCINE 5,000 UNIT/ML 1 ML VIAL SQ ONE; +IMMUNE GLOBULIN (GAMMAGARD) 10 GM in EMPTY BAG 1 BAG IV ONE; +IMMUNE GLOBULIN (GAMMAGARD) 5 GM in EMPTY BAG 1 BAG IV ONE; -LACTATED RINGERS 1,000 ML IV SCH; -MIDAZOLAM 2 MG/2 ML VIAL IV PRN; -MORPHINE SULFATE 4 MG/ML SYRINGE IV PRN; -ONDANSETRON 4 MG/2 ML VIAL IVP ONE; -PANTOPRAZOLE 40 MG/10 ML VIAL IV STA; -SCOPOLAMINE 1.5MG/72HR PATCH TRANSDERM ONE; +SODIUM CHLORIDE 0.9% 1,000 ML IV ONE; +SODIUM CHLORIDE 0.9% 500 ML 500 ML in EMPTY BAG 1 BAG IV PRN; +diphenhydrAMINE 25 MG CAP PO ONE; +methylPREDNISolone SOD SUCCI 40 MG/ML 1 ML VIAL IV ONE
[2019-04-18 09:08] VITALS: RESP 18; TEMP 98.5
[2019-04-18 09:36] VITALS: BP 91/54; PULSE 75
[2019-04-18 09:36] LABS: Calcium 9.6 mg/dL (8.4-10.2); Potassium 4.6 mmol/L (3.5-5.1)
[2019-04-18 09:41] LABS: Anisocytosis Moderate; Basophils # (A) 0.1 k/uL (0-0.2); Basophils % (A) 0 %; Eosinophils # (A) 0.1 k/uL (0-0.7); Eosinophils % (A) 1 %; HCT 39.5 % (34.0-46.0); HGB 11.7 gm/dL (11.4-16.0); Hypochromasia Moderate; Lymphocytes # (A) 0.9 k/uL (1.0-4.8); Lymphocytes % (A) 7 %; MCH 27.4 pg (25.0-35.0); MCHC 29.7 g/dL (31.0-37.0); MCV 92.2 fL (80.0-100.0); Macrocytosis Slight; Monocytes # (A) 0.6 k/uL (0-1.0); Monocytes % (A) 4 %; Neutrophils # (A) 12.2 k/uL (1.3-7.7); Neutrophils % (A) 87 %; Platelet Count 292 k/uL (150-450); RBC 4.29 m/uL (3.80-5.40); RDW 20.4 % (11.5-15.5)
== END ==
LOC: PROCWHC3 08:21
PROVIDERS: ATTEND Internal Medicine Infectious Disease
DX: D83.8 Other common variable immunodeficiencies (principal)
CPT/HCPCS: 80048; 85025; 82784; 96361; 96365; 96366; 96375; 36415; J2920; J1642; J1569 ×2

== ENCOUNTER → 2019-04-18 | Outpatient (CLI) | payer MEDICARE ==
[~2019-04-18] MED LIST changes: -ACETAMINOPHEN TAB 325 MG TAB PO ONE; +DENOSUMAB 60 MG/ML 1 ML SYRINGE SQ ONE; -IMMUNE GLOBULIN (GAMMAGARD) 10 GM in EMPTY BAG 1 BAG IV ONE; -IMMUNE GLOBULIN (GAMMAGARD) 5 GM in EMPTY BAG 1 BAG IV ONE; -SODIUM CHLORIDE 0.9% 1,000 ML IV ONE; -SODIUM CHLORIDE 0.9% 500 ML 500 ML in EMPTY BAG 1 BAG IV PRN; -diphenhydrAMINE 25 MG CAP PO ONE; -methylPREDNISolone SOD SUCCI 40 MG/ML 1 ML VIAL IV ONE
[2019-04-18 13:10] VITALS: RESP 16
[2019-04-18 13:14] VITALS: BP 91/54; PULSE 75; TEMP 98.5
== END ==
LOC: PROCWHC3 12:49
PROVIDERS: ATTEND Internal Medicine Endocrinology, Diabetes & Metabolism
DX: M81.0 Age-related osteoporosis without current pathological fracture (principal)
CPT/HCPCS: 96372; J0897

== ENCOUNTER → 2019-06-13 | Outpatient (CLI) | payer MEDICARE ==
[~2019-06-13] MED LIST changes: +ACETAMINOPHEN TAB 325 MG TAB PO ONE; -DENOSUMAB 60 MG/ML 1 ML SYRINGE SQ ONE; +IMMUNE GLOBULIN (GAMMAGARD) 10 GM in EMPTY BAG 1 BAG IV ONE; +IMMUNE GLOBULIN (GAMMAGARD) 20 GM in EMPTY BAG 1 BAG IV ONE; +SODIUM CHLORIDE 0.9% 1,000 ML IV SCH; +SODIUM CHLORIDE 0.9% 500 ML 500 ML in EMPTY BAG 1 BAG IV PRN; +diphenhydrAMINE 25 MG CAP PO ONE; +methylPREDNISolone SOD SUCCI 40 MG/ML 1 ML VIAL IVP ONE
[2019-06-13 09:14] VITALS: BP 118/71; PULSE 80; RESP 16
[2019-06-13 10:16] LABS: Basophils # (A) 0.1 k/uL (0-0.2); Basophils % (A) 1 %; Eosinophils # (A) 0.1 k/uL (0-0.7); Eosinophils % (A) 1 %; HCT 41.7 % (34.0-46.0); Hypochromasia Moderate; Lymphocytes # (A) 1.3 k/uL (1.0-4.8); Lymphocytes % (A) 13 %; MCH 28.1 pg (25.0-35.0); MCHC 31.2 g/dL (31.0-37.0); MCV 89.9 fL (80.0-100.0); Mean Platelet Volume 6.7; Monocytes # (A) 0.6 k/uL (0-1.0); Monocytes % (A) 5 %; Neutrophils # (A) 8.1 k/uL (1.3-7.7); Neutrophils % (A) 79 %; Platelet Count 215 k/uL (150-450); RBC 4.64 m/uL (3.80-5.40); RDW 15.9 % (11.5-15.5); WBC 10.3 k/uL (3.8-10.6)
[2019-06-13 10:27] LABS: African American GFR (CKD) >90 (>60 ml/min/1.73 sqM); Anion Gap 8 mmol/L; Blood Urea Nitrogen 26 mg/dL (7-17); Calcium 9.1 mg/dL (8.4-10.2); Carbon Dioxide 26 mmol/L (22-30); Chloride 108 mmol/L (98-107); Glucose 76 mg/dL (74-99); Sodium 142 mmol/L (137-145)
== END ==
LOC: PROCWHC3 08:15
PROVIDERS: ATTEND Internal Medicine Infectious Disease
DX: D83.8 Other common variable immunodeficiencies (principal)
CPT/HCPCS: 80048; 85025; 82784; 96365; 96366; 96375; 36415; J2920; J1642; J1569 ×2

== ENCOUNTER → 2019-06-18 | Outpatient (CLI) | payer MEDICARE ==
[2019-06-18 11:47] VITALS: BP 126/70; PULSE 84; RESP 18; TEMP 97.9; BMI 24.4
--- NOTE | 2019-06-18 13:57 | P.HPOB ---
History of Present Illness H&P Date: 06/18/19 Chief Complaint: The patient is here for her routine gynecologic exam and ma mmogram. This is a 64-year-old with an LMP of 1998. The patient is without gynecologic complaints and denies any postmenopausal bleeding. The patient was seen in the emergency room in March of this year and had a CT scan of the chest because of respiratory problems. The CT scan done on 04/09/2019 showed a right breast mass possibly fatty in nature. Review of Systems The patient has lost 4 pounds over the last year. She denies respiratory or cardiac problems. GI: She has had problems with constipation. Neuro: She has noticed a decrease in cognition and memory. She denies maltreatment or falling. She does have to walk very slowly. : She does have occasional slight leakage with coughing. Past Medical History Past Medical History: Asthma, COPD, Diabetes Mellitus, Eye Disorder, Fibromyalgia, GERD/Reflux, Hyperlipidemia, Hypertension, Musculoskeletal Disorder, Pneumonia, Respiratory Disorder, Skin Disorder Additional Past Medical History / Comment(s): Bronchial asthma, tracheobronchomalacia, common variable immunoglobulin deficiency. Chronic back problems. chronic steroid use, suspected component of adrenal insufficiency due to chronic steroid use. Hiatal hernia. 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 History of Any Multi-Drug Resistant Organisms: MRSA Date of last positivie culture/infection: 2010 MDRO Source:: right hand Past Surgical History: Appendectomy, Back Surgery, Breast Surgery, Cholecystectomy, Tubal Ligation Additional Past Surgical History / Comment(s): MULT BRONCHS, WASHINGS, LAST 04/17/14. EXC OMA CATARACT. BLEPHAROPLASTY/ R&L BREAST BIOPSIES; PORT A CATH IN LEFT CHEST-CHANGED TO RT CHEST,EXC MYCOBACTERIUM AREAS RT ARM 2011; UPPER TEETH EXTRACTED. RT SALPINGECTOMY/FALLOPIAN TUBE REMOVED, I&D BOIL.[facility]; - mouth (bone) surgery. Pain pump insertion to left buttocks - October 2016. Colonoscopy 2014. Hiatal hernia surgeries 2014&2016. Back surgery (Decompresssion) - February 2019 Past Anesthesia/Blood Transfusion Reactions: Motion Sickness, Postoperative Nausea & Vomiting (PONV) Past Psychological History: Anxiety, Depression Additional Psychological History / Comment(s): . Lives in the family home with her . Not employed outside of the home. Lifelong nonsmoker. No significant history of alcohol use. No history of recreational drug use. No international travels. There are pet dogs in the home. There are still children in the home that they are responsible for. Smoking Status: Never smoker Past Alcohol Use History: None Reported Past Drug Use History: None Reported Additional History: She is . - Past Family History Mother Family Medical History: Cancer, Congestive Heart Failure (CHF) Additional Family Medical History / Comment(s): HAD OPEN HEART SURGERY, BREAST CANCER. Osteoporosis. Father Additional Family Medical History / Comment(s): r/t suicide Medications and Allergies Home Medications Medication Instructions Recorded Confirmed Type Escitalopram [Lexapro] 30 mg PO QAM 01/01/14 06/18/19 History Spironolactone [Aldactone] 25 mg PO TID 01/01/14 06/18/19 History ALPRAZolam [Xanax] 0.5 mg PO TID 01/02/14 06/18/19 History Potassium Chloride ER [K-Dur 20] 60 meq PO BID 11/06/14 06/18/19 History Amitriptyline HCl [Elavil] 30 mg PO HS 12/07/14 06/18/19 History Albuterol Sulfate [Ventolin HFA] 2 puff INHALATION RT-QID PRN 05/12/15 06/18/19 History predniSONE 20 mg PO DAILY 09/09/16 06/18/19 History traZODone HCL 75 mg PO HS 09/10/16 06/18/19 History Gammagard 10 gm IV Q28D 07/24/17 06/18/19 History Insulin Aspart (For Pump) [NovoLOG 0.01 unit SQ-PUMP CONTINUOUS 07/24/17 06/18/19 History (For Pump)] buPROPion XL [Wellbutrin XL] 450 mg PO DAILY 07/24/17 06/18/19 History Furosemide [Lasix] 40 mg PO BID 09/07/17 06/18/19 History Bupivicaine 1 dose INTRATHECA DIRECTED 11/23/17 06/18/19 History Budesonide [Pulmicort] 1 mg INHALATION RT-BID 04/09/19 06/18/19 History Fluticasone/Salmeterol [Advair Hfa 2 puff INHALATION RT-BID 04/09/19 06/18/19 History 230-21 Mcg Inhaler] Pantoprazole Sodium [Protonix] 20 mg PO DAILY 04/09/19 06/18/19 History Pravastatin Sodium [Pravachol] 10 mg PO DAILY 04/09/19 06/18/19 History Pregabalin [Lyrica] 100 mg PO TID 04/09/19 06/18/19 History oxyCODONE-APAP 5-325MG [Percocet 1 tab PO DAILY PRN 04/09/19 06/18/19 History 5-325 mg] traMADol HCL [Ultram] 75 mg PO HS PRN 04/09/19 06/18/19 History Denosumab [Prolia] 60 mg SQ DIRECTED 06/18/19 06/18/19 History Denosumab [Prolia] 60 mg SQ ONCE 06/18/19 06/18/19 History Allergies Allergy/AdvReac Type Severity Reaction Status Date / Time cefuroxime axetil AdvReac Severe Abdominal Verified 06/18/19 11:47 [From Ceftin] Pain ciprofloxacin HCl AdvReac Severe Abdominal Verified 06/18/19 11:47 [From Cipro] Pain erythromycin base AdvReac Unknown Abdominal Verified 06/18/19 11:47 [Erythromycin Base] Pain sulfamethoxazole AdvReac Unknown Abdominal Verified 06/18/19 11:47 [From Bactrim] Pain trimethoprim [From Bactrim] AdvReac Unknown Abdominal Verified 06/18/19 11:47 Pain crisaborole [From Eucrisa] AdvReac Rash/Hives Verified 06/18/19 11:47 indomethacin [From Indocin] AdvReac Confusion Verified 06/18/19 11:47 indomethacin sodium AdvReac Confusion Verified 06/18/19 11:47 [From Indocin] NSAIDS (Non-Steroidal AdvReac Dyspnea Verified 06/18/19 11:47 Anti-Inflamma Penicillins AdvReac Nausea & Verified 06/18/19 11:47 Vomiting Sulfa (Sulfonamide AdvReac Abdominal Verified 06/18/19 11:47 Antibiotics) Pain Exam Vital Signs Temp Pulse Resp BP Pulse Ox 06/18/19 11:36 97.9 F 84 18 126/70 93 L Intake and Output 06/17/19 06/18/19 06/18/19 22:59 06:59 14:59 Other: Weight 56.699 kg Height 5 feet 0 inches, weight 125 pounds. BMI 24.4. This is a well-developed well-nourished white female who is alert and oriented times 3 in no acute distress. The patient has a very slow gait and requires assistance getting onto the exam table. The lower extremities show signs of muscle wasting. HEENT: Within normal limits. NECK: Supple without mass or thyromegaly. CHEST AND LUNGS: Clear to auscultation. HEART: Regular rate and rhythm. BREASTS: Are without mass or discharge. AXILLARY EXAM: Negative for adenopathy. BACK: Negative for CVA tenderness. ABDOMEN: Soft, nontender, without palpable masses. PELVIC EXAM: Normal external genitalia with mild to moderate atrophy. Cervix and vagina appear normal is mild to moderate atrophy. There is no unusual discharge. There is no evidence of prolapse. The uterus is midposition, nongravid size and nontender. There are no palpable adnexal masses or tenderness. RECTAL EXAM: Rectovaginal exam is negative for mass or tenderness and is negative for occult blood. There is a medium-sized stool which is relatively firm in the rectum. There is no stool impaction. EXTREMITIES: Nontender. Additional studies: CT scan of the chest on 04/09/2019 showed a right soft tissue breast mass. Other chest and lung findings were also noted. IMPRESSION: 1. 64-year-old menopausal female with normal gynecologic exam. 2. History of osteoporosis currently on Prolia as prescribed by her journalist. 3. Multiple medical problems. PLAN: 1. Pap smear was deferred since she had a normal one on 03/27/2018. 2. Self breast awareness was discussed with the patient. 3. Diagnostic mammogram will be done today. This will be a diagnostic mammogram because of the CT scan findings from 04/09/2019. Her previous mammogram done in 2018 was benign. 4. Osteoporosis management was discussed. I have stressed the importance of adequate calcium, vitamin D and regular exercise. Recommended amounts of calcium and vitamin D were also discussed. She will continue to get Prolia through her journalist. 5. She did receive her flu shot this fall. 6. She was advised to return in one year for her annual well woman exam.
--- NOTE | 2019-06-19 08:59 | MM ---
Reason for exam: additional evaluation requested from prior study. Last mammogram was performed 1 year and 1 month ago. History: Patient is postmenopausal. Family history of breast cancer in mother at age 75 and breast cancer in maternal grandmother at age 75. Benign excisional biopsy of the right breast, 1989. Excisional biopsy of the left breast. Took estrogen for 6 years. Physical Findings: Dr. Wang did breast exam. MG 3D Diag Mammo W/Cad OMA Bilateral CC and MLO view(s) were taken. CC with magnification and ML with magnification view(s) were taken of the right breast. Prior study comparison: May 21, 2018, bilateral MG 3d screening mammo w/cad. April 20, 2017, bilateral MG screening mammo w CAD. The breast tissue is heterogeneously dense. This may lower the sensitivity of mammography. Finding: There are increased fine, grouped/clustered calcifications in the subareolar position of the right breast. New finding since May 21, 2018 and April 20, 2017. These results were verbally communicated with the patient and result sheet given to the patient on 06/18/19. ASSESSMENT: Suspicious, BI-RAD 4 RECOMMENDATION: Stereotactic core biopsy of the right breast. Called Dr. Wang's office with mammographic findings and has scheduled an appointment for the patient for 07/31/19 at 11:[address] Mendes. PRELIMINARY REPORT CALLED AND FAXED TO DR. MENDES ON 06/18/19.
== END | disposition home or self-care (01) ==
LOC: WWCWWP 11:11
PROVIDERS: ATTEND Obstetrics & Gynecology
DX: R92.8 Other abnormal and inconclusive findings on diagnostic imaging of breast (principal)
CPT/HCPCS: 77066; G0279; 77062

== ENCOUNTER → 2019-07-01 | Outpatient (CLI) | payer MEDICARE ==
[2019-07-01 16:20] LABS: African American GFR (CKD) 77.2 (60.0-200.0); Albumin 3.9 g/dL (3.80-4.90); Albumin/Globulin Ratio 2.05 (1.60-3.17); Anion Gap 5.8 mmol/L (4.00-12.00); BUN/Creat Ratio 23.33 Ratio (12.00-20.00); Calcium 8.9 mg/dL (8.7-10.3); Carbon Dioxide 29.2 mmol/L (21.6-31.8); Chol/HDL Ratio 2.59; Globulin 1.9 g/dL (1.6-3.3); LDL Cholesterol,Calculated 79.6 mg/dL (0.0-131.0); Potassium 4.6 mmol/L (3.5-5.5); Total Bilirubin 0.3 mg/dL (0.3-1.2); Total Protein 5.8 g/dL (6.2-8.2); VLDL Calculation 20.4 mg/dL (5.00-40.00)
[2019-07-01 17:27] LABS: Hemoglobin A1C 6.2 % (4.0-6.0)
== END | disposition home or self-care (01) ==
LOC: LABWHC1 09:11
PROVIDERS: ATTEND Internal Medicine Endocrinology, Diabetes & Metabolism
DX: E10.65 Type 1 diabetes mellitus with hyperglycemia (principal)
CPT/HCPCS: 36415; 80053; 80061; 82043; 82570; 83036; 84443

== ENCOUNTER → 2019-07-11 | Outpatient (CLI) | payer MEDICARE ==
[~2019-07-11] MED LIST changes: +ACETAMINOPHEN TAB 325 MG TAB PO NR; -ACETAMINOPHEN TAB 325 MG TAB PO ONE; -IMMUNE GLOBULIN (GAMMAGARD) 10 GM in EMPTY BAG 1 BAG IV ONE; -IMMUNE GLOBULIN (GAMMAGARD) 20 GM in EMPTY BAG 1 BAG IV ONE; +IMMUNE GLOBULIN (GAMMAGARD) 30 GM in EMPTY BAG 1 BAG IV ONE; +SODIUM CHLORIDE 0.9% 1,000 ML IV ONE; -SODIUM CHLORIDE 0.9% 1,000 ML IV SCH; +diphenhydrAMINE 25 MG CAP PO NR; -diphenhydrAMINE 25 MG CAP PO ONE; +methylPREDNISolone SOD SUCCI 40 MG/ML 1 ML VIAL IV NR; -methylPREDNISolone SOD SUCCI 40 MG/ML 1 ML VIAL IVP ONE
[2019-07-11 09:08] VITALS: RESP 16; TEMP 98.5
[2019-07-11 09:28] VITALS: BP 117/69; PULSE 73
[2019-07-11 09:59] LABS: Basophils # (A) 0.1 k/uL (0-0.2); Basophils % (A) 1 %; Eosinophils # (A) 0.1 k/uL (0-0.7); Eosinophils % (A) 1 %; HCT 39.3 % (34.0-46.0); HGB 12.3 gm/dL (11.4-16.0); Lymphocytes # (A) 0.9 k/uL (1.0-4.8); Lymphocytes % (A) 7 %; MCH 27.2 pg (25.0-35.0); MCHC 31.3 g/dL (31.0-37.0); MCV 86.9 fL (80.0-100.0); Mean Platelet Volume 7.2; Monocytes # (A) 0.6 k/uL (0-1.0); Monocytes % (A) 5 %; Neutrophils # (A) 10.5 k/uL (1.3-7.7); Neutrophils % (A) 85 %; Platelet Count 200 k/uL (150-450); RBC 4.52 m/uL (3.80-5.40); RDW 15.6 % (11.5-15.5); WBC 12.3 k/uL (3.8-10.6)
[2019-07-11 10:17] LABS: Potassium 4.2 mmol/L (3.5-5.1)
== END | disposition home or self-care (01) ==
LOC: PROCWHC3 08:21
PROVIDERS: ATTEND Internal Medicine Infectious Disease
DX: D83.8 Other common variable immunodeficiencies (principal)
CPT/HCPCS: 80048; 85025; 82784; 96361; 96365; 96366; 96375; 36415; J2920; J1642; J1569

== ENCOUNTER 2019-07-15 10:58 | Day surgery (SDC) | payer MEDICARE ==
[2019-07-14 11:35] VITALS: BMI 24.2
[~2019-07-15 10:58] MED LIST changes: -ACETAMINOPHEN TAB 325 MG TAB PO NR; +ALBUTEROL NEB (CONC) 2.5 MG/0.5 ML INHALATION ONE; -IMMUNE GLOBULIN (GAMMAGARD) 30 GM in EMPTY BAG 1 BAG IV ONE; +LACTATED RINGERS 1,000 ML IV SCH; +LIDOCAINE 2% (PF) 20 MG/ML 5 ML VIAL INHALATION ONE; +LIDOCAINE VISCOUS 300 MG/15 ML CUP MUCOUS MEM ONE; -SODIUM CHLORIDE 0.9% 1,000 ML IV ONE; +SODIUM CHLORIDE 0.9% 1,000 ML IV SCH; -SODIUM CHLORIDE 0.9% 500 ML 500 ML in EMPTY BAG 1 BAG IV PRN; -diphenhydrAMINE 25 MG CAP PO NR; -methylPREDNISolone SOD SUCCI 40 MG/ML 1 ML VIAL IV NR
[2019-07-15 11:55] VITALS: TEMP 98.2
[2019-07-15 11:58] LABS: Glucose,Whole Blood 123 mg/dL (75-99)
[2019-07-15] MEDS ORDERED: fentaNYL (PF) 50 MCG/ML 2 ML AMP ONE (12:02)
[2019-07-15] MEDS ORDERED: PROPOFOL 10 MG/ML 20 ML VIAL IV ONE (12:02)
[2019-07-15] MEDS ORDERED: KETAMINE 10 MG/ML 20 ML VIAL ONE (12:02)
--- NOTE | 2019-07-15 12:43 | P.PCN ---
Date of Procedure: 07/15/19 Preoperative Diagnosis: Severe tracheobronchitis, shortness of breath, asthma exacerbation Postoperative Diagnosis: 1 Severe tracheobronchitis 2 tracheal bronchomalacia Procedure(s) Performed: Flexible bronchoscopy, bronchioalveolar lavage of the lingula Anesthesia: regional Surgeon: Ponce Kothari Estimated Blood Loss (ml): 0 Pathology: other Condition: stable Disposition: same day Operative Findings: This procedure was done under conscious sedation under the direction of Shashank Smith CRNA. The patient was brought into the endoscopy suite and after achieving adequate sedation flexible bronchoscope was inserted to the left nostril. The posterior oropharynx, larynx, epiglottis and vocal cords were all within normal limits. A total of disease 1% lidocaine was applied to the vocal cords and following that the bronchoscope was advanced was advanced to the upper trachea. Examination tracheal bronchial tree was done. There was moderate to severe degree of tracheal bronchomalacia throughout the airways involving the trachea and bilateral mainstem bronchi in various segments of the lower and upper lobes bilaterally. The trachea included some loose secretions that were suctioned out. Examination of left-sided included left mainstem bronchus was patent. There was severe inflammatory changes as of the midportion of the left mainstem bronchus extending to the upper lobes maintaining into the lingular segment and left upper lobe segments. Left lower lobe segments were patent within normal limits. Bronchoscope was moved to the right on examination the right-sided fluid the right mainstem bronchus, right upper lobe bronchus and regular lobe bronchus and right lower lobe bronchus. In various airways and the segments and subsegments on the right were inflamed. The majority of inflammation wound was in the lingular segment with possibly erythema and mucosal irregularity was present. At this point, the bronchoscope was wedged into the superior segment of the lingula in the lavage was done. A total of 60 mL of fluid was infused and 45 cc was suctioned back and the samples will be covered for microbial cultures and analysis. At the completion of the procedure, bronchoscope was used to do a therapeutic airway suctioning and the bronchoscope was removed and the patient was transferred recovery in stable condition. Further recommendations are to follow regarding antibiotic treatment based on the results of the bronchioloalveolar lavage and the microbial cultures.
[2019-07-15 12:48] VITALS: RESP 18
[2019-07-15 13:04] LABS: Glucose,Whole Blood 108 mg/dL (75-99)
[2019-07-15 13:16] LABS: Glucose,Whole Blood 110 mg/dL (75-99)
[2019-07-15 13:18] VITALS: BP 128/66; PULSE 77
[2019-07-15 15:55] LABS: Appearance,BF Cloudy; Color,BF Red; Nucleated Cells, Body Fluid 200 /uL; RBC, Body Fluid 45200 /uL
[2019-07-15 15:58] LABS: Mononuclear WBC,Body Fluid 57 %; Polynuclear WBC,Body Fluid 43 %; Total Cells Counted,Body Fluid 100
== END 2019-07-15 13:44 | disposition home or self-care (01) ==
LOC: ORWHC2ENDO 10:58
PROVIDERS: ATTEND Internal Medicine Critical Care Medicine
DX: J18.1 Lobar pneumonia, unspecified organism (principal); J98.09 Other diseases of bronchus, not elsewhere classified; J45.901 Unspecified asthma with (acute) exacerbation; E11.9 Type 2 diabetes mellitus without complications; G47.33 Obstructive sleep apnea (adult) (pediatric); K21.9 Gastro-esophageal reflux disease without esophagitis; D80.1 Nonfamilial hypogammaglobulinemia; E27.40 Unspecified adrenocortical insufficiency; M79.7 Fibromyalgia; H40.9 Unspecified glaucoma; G89.29 Other chronic pain; M54.9 Dorsalgia, unspecified; E78.2 Mixed hyperlipidemia; M19.90 Unspecified osteoarthritis, unspecified site; I10 Essential (primary) hypertension; M81.0 Age-related osteoporosis without current pathological fracture; M46.00 Spinal enthesopathy, site unspecified; M79.652 Pain in left thigh; R20.0 Anesthesia of skin; N32.89 Other specified disorders of bladder; R39.198 Other difficulties with micturition; J44.9 Chronic obstructive pulmonary disease, unspecified; M48.54XA Collapsed vertebra, not elsewhere classified, thoracic region, initial encounter for fracture; H26.9 Unspecified cataract; M45.2 Ankylosing spondylitis of cervical region; K44.9 Diaphragmatic hernia without obstruction or gangrene; M96.65 Fracture of pelvis following insertion of orthopedic implant, joint prosthesis, or bone plate; N39.490 Overflow incontinence; N95.2 Postmenopausal atrophic vaginitis; F41.9 Anxiety disorder, unspecified; F32.9 Major depressive disorder, single episode, unspecified; Z88.2 Allergy status to sulfonamides; Z88.1 Allergy status to other antibiotic agents; Z88.6 Allergy status to analgesic agent; Z88.0 Allergy status to penicillin; Z79.51 Long term (current) use of inhaled steroids; Z79.899 Other long term (current) drug therapy; Z79.818 Long term (current) use of other agents affecting estrogen receptors and estrogen levels; Z79.1 Long term (current) use of non-steroidal anti-inflammatories (NSAID); Z79.4 Long term (current) use of insulin; Z79.52 Long term (current) use of systemic steroids; Z86.19 Personal history of other infectious and parasitic diseases; Z87.81 Personal history of (healed) traumatic fracture; Z87.311 Personal history of (healed) other pathological fracture; Z98.890 Other specified postprocedural states; Z90.79 Acquired absence of other genital organ(s); Z90.49 Acquired absence of other specified parts of digestive tract; Z98.49 Cataract extraction status, unspecified eye; Z87.01 Personal history of pneumonia (recurrent); Z96.41 Presence of insulin pump (external) (internal); Z87.440 Personal history of urinary (tract) infections; Z87.898 Personal history of other specified conditions; Z97.2 Presence of dental prosthetic device (complete) (partial); Z82.49 Family history of ischemic heart disease and other diseases of the circulatory system; Z80.3 Family history of malignant neoplasm of breast
CPT/HCPCS: 88108; 88305; 89050; 87252; 87070; 87205; 87116; 87102; 87206; 31624; J3010; J2704

== ENCOUNTER → 2019-08-01 | Outpatient (CLI) | payer MEDICARE ==
[2019-08-01 11:38] VITALS: BP 113/70; PULSE 84; RESP 18; TEMP 97.9
--- NOTE | 2019-08-01 12:07 | P.GSHP ---
History of Present Illness H&P Date: 08/01/19 Chief Complaint: abnormal mammogram right breast Alley is a 64 year old white female with a routine screening mammogram on 06-18-19. The mammogram showed grouped calcifications in the subarolar region of the right breast. She was seen in consultation for Dr. Wang regarding the breast treatment approach for these. The patient does not feel any masses or lumps in her breast. She has no complaints of any recent infection or trauma to the breast. Family History: mother: breast cancer maternal grandmother: breast cancer Hormonal History: menarche: 13 , breast fed: no, first at 16, (11 children 8 adopted) menopause: 48 BCP: none, hormones: none Past Surgical History: gallbladder eye arm soft tissue lesions no cancer decompressionn on lower lumbar area Medical History: decreased memory ? CVA asthma (steroid dependant) diabetic (steroid induced) osteoarthritis immune compromised (steriod and gets IGG treatments) COPD 02 dependant at night Social History: smoke: none alcohol: none drugs: none - Constitutional Constitutional: Reports sweats, Denies chills, Denies fever - EENT Comment: decreased vision Eyes: bilateral decreased vision, denies pain Ears: bilateral: tinnitus, deny: decreased hearing Ears, nose, mouth and throat: Reports sore throat, Denies headache - Breasts Breasts: bilateral: as per HPI - Cardiovascular Cardiovascular: Reports shortness of breath, Denies chest pain - Respiratory Comment: asthma Respiratory: Denies cough, Denies 7 - Gastrointestinal Gastrointestinal: Denies abdominal pain, Denies diarrhea, Denies nausea, Denies vomiting - Genitourinary (Female) Genitourinary: Denies dysuria, Denies hematuria - Menstruation Menstruation: Reports postmenopausal - Musculoskeletal Comment: osteoarthritis back DJD - Integumentary Integumentary: Denies pruritus, Denies rash - Neurological Comment: spinal stenosis - Psychiatric Psychiatric: Reports anxiety, Reports depression - Endocrine Comment: diabetes Endocrine: Reports fatigue - Hematologic/Lymphatic Comment: none - Allergic/Immunologic Allergic/Immunologic: Reports as per HPI Past Medical History Past Medical History: Asthma, COPD, Diabetes Mellitus, Eye Disorder, Fibromyalgia, GERD/Reflux, Hyperlipidemia, Musculoskeletal Disorder, Pneumonia, Respiratory Disorder, Skin Disorder Additional Past Medical History / Comment(s): O2 at 4L at HS, Bronchial asthma, tracheobronchomalacia, common variable immunoglobulin deficiency. ?CVA after back sx 03/2019, Chronic back problems.chronic steroid use, suspected component of adrenal insufficiency due to chronic steroid use. had Pneumonia / In ICU in [place] after Back surgery - March 2019,Mycobacterium gordonae soft tissue infection. glaucoma, History of Any Multi-Drug Resistant Organisms: MRSA Date of last positivie culture/infection: 2010 MDRO Source:: right hand Past Surgical History: Appendectomy, Back Surgery, Breast Surgery, Cholecystectomy, Tubal Ligation Additional Past Surgical History / Comment(s): MULT BRONCHS, WASHINGS, LAST 04/17/14. EXC [facility] CATARACT. BLEPHAROPLASTY/ R&L BREAST BIOPSIES; PORT A CATH IN LEFT CHEST-CHANGED TO RT CHEST,EXC MYCOBACTERIUM AREAS RT ARM 2011; UPPER TEETH EXTRACTED. I&D BOIL.Jul [facility] EYE AND MUSCLE SURGERY; - mouth (bone) surgery,Pain pump insertion to left buttocks 11/10 Hiatal hernia surgeries 2014&2015. Back surgery (Decompresssion) - February 2019 Past Anesthesia/Blood Transfusion Reactions: Motion Sickness, Postoperative Nausea & Vomiting (PONV) Past Psychological History: Anxiety, Depression Smoking Status: Former smoker Past Alcohol Use History: None Reported Past Drug Use History: None Reported - Past Family History Mother Family Medical History: Cancer, Congestive Heart Failure (CHF) Additional Family Medical History / Comment(s): HAD OPEN HEART SURGERY, BREAST CANCER. Osteoporosis. Father Additional Family Medical History / Comment(s): r/t suicide Medications and Allergies Home Medications Medication Instructions Recorded Confirmed Type Escitalopram [Lexapro] 30 mg PO QAM 01/01/14 07/14/19 History Spironolactone [Aldactone] 25 mg PO TID 01/01/14 07/14/19 History ALPRAZolam [Xanax] 0.5 mg PO TID 01/02/14 07/15/19 History Potassium Chloride ER [K-Dur 20] 60 meq PO BID 11/06/14 07/14/19 History Amitriptyline HCl [Elavil] 30 mg PO HS 12/07/14 07/14/19 History predniSONE 20 mg PO DAILY 09/09/16 07/14/19 History traZODone HCL 75 mg PO HS 09/10/16 07/14/19 History Gammagard 10 gm IV Q28D 07/24/17 07/14/19 History Insulin Aspart (For Pump) [NovoLOG 0.01 unit SQ-PUMP CONTINUOUS 07/24/17 07/14/19 History (For Pump)] buPROPion XL [Wellbutrin XL] 450 mg PO DAILY 07/24/17 07/14/19 History Furosemide [Lasix] 40 mg PO BID 09/07/17 07/14/19 History Bupivicaine 1 dose INTRATHECA DIRECTED 11/23/17 07/15/19 History Fluticasone/Salmeterol [Advair Hfa 2 puff INHALATION RT-BID 04/09/19 07/14/19 History 230-21 Mcg Inhaler] Pregabalin [Lyrica] 100 mg PO BID 04/09/19 07/14/19 History Cyproheptadine [Cyproheptadine HCl] 4 mg PO DAILY PRN 08/01/19 08/01/19 History Fluconazole [Diflucan] 100 mg PO DAILY 08/01/19 08/01/19 History Gabapentin [Neurontin] 100 mg PO TID 08/01/19 08/01/19 History Ipratropium [place] [Atrovent Hfa] 2 puff INHALATION QID 08/01/19 08/01/19 History Ipratropium [place] [Atrovent Hfa] 2 puff INHALATION QID 08/01/19 08/01/19 History Levalbuterol Hfa Inhaler [Xopenex 1 puff INHALATION Q6HR PRN 08/01/19 08/01/19 History Hfa Inhaler] Montelukast [Singulair] 10 mg PO DAILY 08/01/19 08/01/19 History Nystatin 1 unit PO DAILY PRN 08/01/19 08/01/19 History Simvastatin [Zocor] 20 mg PO HS 08/01/19 08/01/19 History Allergies Allergy/AdvReac Type Severity Reaction Status Date / Time crisaborole [From Eucrisa] Allergy Rash/Hives Verified 08/01/19 11:38 indomethacin sodium Allergy severe Verified 08/01/19 11:38 [From Indocin] Confusion cefuroxime axetil AdvReac Severe Abdominal Verified 08/01/19 11:38 [From Ceftin] Pain ciprofloxacin HCl AdvReac Severe Abdominal Verified 08/01/19 11:38 [From Cipro] Pain erythromycin base AdvReac Unknown Abdominal Verified 08/01/19 11:38 [Erythromycin Base] Pain sulfamethoxazole AdvReac Unknown Abdominal Verified 08/01/19 11:38 [From Bactrim] Pain trimethoprim [From Bactrim] AdvReac Unknown Abdominal Verified 08/01/19 11:38 Pain NSAIDS (Non-Steroidal AdvReac Dyspnea Verified 08/01/19 11:38 Anti-Inflamma Penicillins AdvReac Nausea & Verified 08/01/19 11:38 Vomiting Sulfa (Sulfonamide AdvReac Abdominal Verified 08/01/19 11:38 Antibiotics) Pain Surgical - Exam BMI 24.4 - General well nourished, no distress, cachectic - Eyes normal ocular movement - ENT no hearing loss, no congestion - Neck no masses, trachea midline, no lymphadectomy - Respiratory normal expansion, normal respiratory effort - Cardiovascular Rhythm: regular Heart Sounds: normal: S1, S2 - Abdomen no guarding or rebound bowel sounds normal Abdomen: soft - Integumentary pain pump left hip, diabetic pump stomach - Neurologic no disoriented, no combative - Musculoskeletal wheel chair bound - Psychiatric oriented to time, oriented to person, oriented to place, speech is normal, memory intact breast exam: right breast: multiple tattoos, exam no dominant masses or nodules of concern Right axilla: No adenopathy of concern Left breast colon tattoo over her chest wall no dominant masses or nodules of concern, fibrocystic changes Left axilla: No adenopathy of concern Mammogram reviewed with Dr. Orellana, there are new calcifications in the right breast of concern with vessels in near proximity. We have discussed the possibility of open biopsy however secondary to the patient's multiple comorbidities it was felt that it if at all possible to avoid an operation this would be best. Therefore attempted stereo biopsy is considered. Results Mammogram reviewed Assessment and Plan Assessment: Impression: 1. Mammographic abnormality right breast 2. CAT scan abnormality right breast 3. Fibrocystic changes were past 4. Family history of breast cancer 5. Multiple comorbid medical factors including adult-onset asthma which is steroid dependent, oxygen-dependent lung disease 6. Recent discharge from hospital for pneumonia 7. IgG deficiency 8. Diabetes 9. Severe osteoarthritis with back pain 10. ?CVA Plan: 1. Patient's radiograph has been reviewed with Dr. Mireille If possible stereo biopsy would be indicated. However in the vicinity of the microcalcifications there are multiple calcified blood vessels. Therefore at the time of attempted stereo biopsy if the vessels cannot be adequately splayed from the region then needle localization excision in the operating room would be considered. The patient may not be a candidate for surgical intervention secondary to medical comorbidities at this time. 2. Discuss case with primary care physician Dr. Kothari, clearance prior to any intervention, clearance with Dr. Dominguez prior to any intervention secondary to immune deficiency CC: DR. Borrero, Dr. Dominguez Encounter 40 minutes, > 50% of time in planning and counselling Time with Patient: Greater than 30
== END ==
LOC: WWCWWP 10:49
PROVIDERS: ATTEND Surgery
DX: Z53.9 Procedure and treatment not carried out, unspecified reason (principal)

== ENCOUNTER → 2019-08-15 | Outpatient (CLI) | payer MEDICARE ==
[~2019-08-15] MED LIST changes: +ACETAMINOPHEN TAB 325 MG TAB PO ONE; -ALBUTEROL NEB (CONC) 2.5 MG/0.5 ML INHALATION ONE; +IMMUNE GLOBULIN (GAMMAGARD) 30 GM in EMPTY BAG 1 BAG IV NR; -LACTATED RINGERS 1,000 ML IV SCH; -LIDOCAINE 2% (PF) 20 MG/ML 5 ML VIAL INHALATION ONE; -LIDOCAINE VISCOUS 300 MG/15 ML CUP MUCOUS MEM ONE; -SODIUM CHLORIDE 0.9% 1,000 ML IV SCH; +SODIUM CHLORIDE 0.9% 1,000 ML in EMPTY BAG 1 BAG IV NR; +SODIUM CHLORIDE 0.9% 500 ML 500 ML in EMPTY BAG 1 BAG IV PRN; +diphenhydrAMINE 25 MG CAP PO ONE; +methylPREDNISolone SOD SUCCI 40 MG/ML 1 ML VIAL IVP ONE
[2019-08-15 09:25] VITALS: RESP 16; TEMP 98.2
[2019-08-15 09:50] VITALS: BP 134/71; PULSE 83
[2019-08-15 10:24] LABS: Potassium 4.5 mmol/L (3.5-5.1)
[2019-08-15 10:36] LABS: Basophils # (A) 0.1 k/uL (0-0.2); Basophils % (A) 1 %; Eosinophils # (A) 0.1 k/uL (0-0.7); Eosinophils % (A) 1 %; HCT 38.2 % (34.0-46.0); HGB 12.1 gm/dL (11.4-16.0); Hypochromasia Moderate; Lymphocytes # (A) 0.9 k/uL (1.0-4.8); Lymphocytes % (A) 9 %; MCH 27.2 pg (25.0-35.0); MCHC 31.7 g/dL (31.0-37.0); MCV 85.6 fL (80.0-100.0); Mean Platelet Volume 7.9; Monocytes # (A) 0.5 k/uL (0-1.0); Monocytes % (A) 5 %; Neutrophils # (A) 8.7 k/uL (1.3-7.7); Neutrophils % (A) 83 %; Platelet Count 196 k/uL (150-450); RBC 4.46 m/uL (3.80-5.40); RDW 15.7 % (11.5-15.5); WBC 10.4 k/uL (3.8-10.6)
== END | disposition home or self-care (01) ==
LOC: PROCWHC3 09:05
PROVIDERS: ATTEND Internal Medicine Infectious Disease
DX: D83.8 Other common variable immunodeficiencies (principal)
CPT/HCPCS: 80048; 85025; 82784; 96361; 96365; 96366; 96375; 36415; J2920; J1642; J1569

== ENCOUNTER → 2019-08-19 | Outpatient (CLI) | payer MEDICARE ==
--- NOTE | 2019-08-19 09:27 | CT ---
EXAMINATION TYPE: CT brain w con DATE OF EXAM: 08/19/2019 COMPARISON: NONE HISTORY: Right sided weakness. CT DLP: 1064.3 mGycm. Automated Exposure Control for Dose Reduction was Utilized. CONTRAST: CT scan of the head is performed with IV Contrast, patient injected with 50 mL of Isovue 300. FINDINGS: There is no abnormal enhancing mass or midline shift identified. The ventricles and sulci are within normal limits in size. Low-attenuation in the deep and periventricular white matter is present bilat erally. The globes are intact and the visualized sinuses are clear. IMPRESSION: [id number] nonspecific white matter changes presumed on the basis of product of chr onic small vessel ischemic change. No suspicious enhancing masses.
== END | disposition home or self-care (01) ==
LOC: RADCTMAIN 08:08
PROVIDERS: ATTEND Internal Medicine Critical Care Medicine
DX: G82.20 Paraplegia, unspecified (principal); Z88.0 Allergy status to penicillin; Z88.1 Allergy status to other antibiotic agents; Z88.2 Allergy status to sulfonamides; Z91.041 Radiographic dye allergy status
CPT/HCPCS: 82565; 84520; 70460; 36415; Q9967

== ENCOUNTER → 2019-09-11 | Day surgery (SDC) | payer MEDICARE | LOC: RADMAMWWP 07:03 | PROVIDERS: ATTEND Surgery | DX: Z53.9 Procedure and treatment not carried out, unspecified reason (principal) ==

== ENCOUNTER → 2019-09-18 | Outpatient (CLI) | payer MEDICARE ==
--- NOTE | 2019-09-18 08:58 | CT ---
EXAMINATION TYPE: CT chest wo con DATE OF EXAM: 09/18/2019 COMPARISON: April 09, 2019 HISTORY: Tracheomalacia CT DLP: 315.[address] of the chest was performed with lung and mediastinal window settings submitted. The la ck of contrast limits evaluation of the vascular, mediastinal and parenchymal structures including th e upper abdomen. LUNGS: The lungs are clear and free of infiltrate. Left basilar atelectasis noted mild in degree. The right lung is clear. No pulmonary nodule or mass is detected. No pleural effusion. No CT evidence of interstitial lung disease. Trachea appears to be widely patent. MEDIASTINUM/LESLYE: Thoracic aorta is of normal caliber with limited evaluation given lack of contrast . The heart is not enlarged. No evidence for mediastinal mass. No lymph nodes greater than 1cm. UPPER ABDOMEN: No significant abnormality is seen. OTHER: No significant other abnormality. IMPRESSION: 1. The trachea appears to be widely patent. 2. Left basilar atelectasis.
== END | disposition home or self-care (01) ==
LOC: RADCTMAIN 07:48
PROVIDERS: ATTEND Internal Medicine Critical Care Medicine
DX: J98.11 Atelectasis (principal); Q32.0 Congenital tracheomalacia; Z88.0 Allergy status to penicillin; Z88.2 Allergy status to sulfonamides
CPT/HCPCS: 71250

== ENCOUNTER → 2019-09-19 | Outpatient (CLI) | payer MEDICARE ==
[~2019-09-19] MED LIST changes: +ACETAMINOPHEN TAB 325 MG TAB PO NR; -ACETAMINOPHEN TAB 325 MG TAB PO ONE; -IMMUNE GLOBULIN (GAMMAGARD) 30 GM in EMPTY BAG 1 BAG IV NR; +IMMUNE GLOBULIN (GAMMAGARD) 30 GM in EMPTY BAG 1 BAG IV ONE; +SODIUM CHLORIDE 0.9% 1,000 ML IV ONE; -SODIUM CHLORIDE 0.9% 1,000 ML in EMPTY BAG 1 BAG IV NR; +diphenhydrAMINE 25 MG CAP PO NR; -diphenhydrAMINE 25 MG CAP PO ONE; +methylPREDNISolone SOD SUCCI 40 MG/ML 1 ML VIAL IV NR; -methylPREDNISolone SOD SUCCI 40 MG/ML 1 ML VIAL IVP ONE
[2019-09-19 08:15] VITALS: RESP 16; TEMP 98.1
[2019-09-19 08:56] VITALS: BP 115/68; PULSE 78
[2019-09-19 09:57] LABS: Anisocytosis Slight; Basophils # (A) 0.1 k/uL (0-0.2); Basophils % (A) 0 %; Eosinophils # (A) 0.1 k/uL (0-0.7); Eosinophils % (A) 1 %; HCT 39.3 % (34.0-46.0); HGB 12.4 gm/dL (11.4-16.0); Hypochromasia Slight; Lymphocytes % (A) 10 %; MCH 27.1 pg (25.0-35.0); MCHC 31.5 g/dL (31.0-37.0); Mean Platelet Volume 8.4; Monocytes # (A) 0.4 k/uL (0-1.0); Monocytes % (A) 4 %; Neutrophils # (A) 8.9 k/uL (1.3-7.7); Neutrophils % (A) 84 %; Platelet Count 217 k/uL (150-450); RBC 4.58 m/uL (3.80-5.40); RDW 16.1 % (11.5-15.5); WBC 10.5 k/uL (3.8-10.6)
[2019-09-19 10:09] LABS: Calcium 9.1 mg/dL (8.4-10.2); Potassium 4.9 mmol/L (3.5-5.1)
== END | disposition home or self-care (01) ==
LOC: PROCWHC3 08:01
PROVIDERS: ATTEND Internal Medicine Infectious Disease
DX: D83.8 Other common variable immunodeficiencies (principal)
CPT/HCPCS: 80048; 85025; 82784; 96361; 96365; 96366; 96375; 36415; J2920; J1642; J1569

== ENCOUNTER → 2019-10-17 | Day surgery (SDC) | payer MEDICARE ==
[2019-10-17 08:18] VITALS: RESP 16
--- NOTE | 2019-10-17 08:31 | XR ---
EXAMINATION TYPE: XR ribs RT w pa chest xray DATE OF EXAM: 10/17/2019 COMPARISON: NONE HISTORY: Pain TECHNIQUE: Single view of the chest 4 views of the ribs are submitted. FINDINGS: There is left basilar infiltrate or atelectasis identified. No Evidence for pneumothorax. No evidence for focal contusion. Mediastinal structures are midline. Evaluation of the ribs fails t o demonstrate evidence for displaced rib fracture or secondary sign of rib fracture. IMPRESSION: No displaced rib fracture identified. Right basilar atelectasis and/or infiltrate.
--- NOTE | 2019-10-17 09:35 | P.OP ---
Date of Procedure: 10/17/19 Preoperative Diagnosis: Groups/clustered calcifications subareolar position of the right breast Postoperative Diagnosis: Same Procedure(s) Performed: Stereotactic core biopsy microcalcifications right breast Anesthesia: local Surgeon: Anjali Mendes Pathology: other (Breast tissue) Disposition: same day Indications for Procedure: Microcalcifications of concern right breast Operative Findings: Microcalcifications and radiographs specimen right breast Description of Procedure: The patient is a 64-year-old white female who presents for stereotactic core biopsy of microcalcifications in the right breast. The patient states that yesterday she fell hitting the right rib cage and has some discomfort in the right chest. Therefore prior to the procedure chest x-ray was obtained. She did not have any evidence of pneumothorax on the chest x-ray and reportedly had no rib fractures. Therefore was felt she was stable to undergo the stereotactic core biopsy procedure. The patient was brought to the [facility] biopsy room. She was positioned on the table in a prone position. A last model maker film was obtained and the area of calcifications were identified cc from below approach was utilized. The lesion was targeted. The breast was prepped using Betadine. A petite 9-gauge vacuum-assisted core rotating biopsy needle was utilized. It was driven to the correct coordinates and fired and a post-fire film was obtained. The needle was noted to be in the correct location. 24 core biopsies were obtained in the circumferential fashion. Radiograph of the specimen revealed that the area of concern to been sampled with microcalcifications in the specimen. The procedure was done utilizing 20 mL of 1% lidocaine 10 approach with epinephrine. A tremor clip was placed. The patient tolerated the procedure in stable condition. Specimen was sent to pathology and the patient will follow-up with Dr. Johnson in 1 week.
[2019-10-17 09:46] VITALS: BP 112/63; PULSE 78; TEMP 97.8
--- NOTE | 2019-10-17 17:03 | MM ---
EXAMINATION TYPE: MG stereo VAD BX RT DATE OF EXAM: 10/17/2019 COMPARISON: 06/18/2019 mammogram CLINICAL HISTORY: Abnormal mammogram, calcifications TECHNIQUE: Stereotactic guided core biopsy of right breast. FINDINGS: The procedure of stereotactic guided core biopsy was explained to the patient. Benefits, alternatives, and risks were discussed. An informed consent was then obtained. The shortness pathway for biopsy was chosen. Shortness pathway was caudal cranial approach. Targeting was provided by radiology. The procedure was performed by surgery. A vacuum assisted biopsy gun was used to obtain multiple core samples. Targeted calcifications are identified in specimen mammogram. Postprocedure mammogram: Post biopsy mammogram shows the clip to appear in satisfactory position relative to the targeted area of concern on the preprocedure images. IMPRESSION: 1. Successful stereotactic core biopsy right breast calcifications. Recommendations: 1. Recommendations are pending pathology results. Pathology Results: Benign RIGHT BREAST, STEREOTACTIC CORE BIOPSY: Fibrocystic changes including hyalinizing stromal fibrosis with calcifications. Recommendation Follow up mammogram of the right breast in 6 months. RADHAMES
== END ==
LOC: RADMAMWWP 07:00
PROVIDERS: ATTEND Surgery
DX: N60.11 Diffuse cystic mastopathy of right breast (principal)
CPT/HCPCS: 88305; 71101; 19081; A4648; J2001

== ENCOUNTER → 2019-10-23 | Outpatient (CLI) | payer MEDICARE ==
[2019-10-23 11:17] VITALS: BP 123/73; PULSE 91; RESP 20; TEMP 98.9
--- NOTE | 2019-10-23 11:26 | P.PN ---
Subjective Progress Note Date: 10/23/19 Principal diagnosis: Status post sterotactic core biopsy right breast Alley is a 64 -year-old white female status post her tactic core biopsy right breast and 220 120. Pathology revealed fibrocystic changes. The patient has no complaints related to the procedure. Pathology revealed fibrocystic changes including hyalinizing stromal fibrosis with calcifications. Objective - Vital Signs Vital signs: Vital Signs Temp 98.9 F 10/23/19 11:14 Pulse 91 10/23/19 11:14 Resp 20 10/23/19 11:14 BP 123/73 10/23/19 11:14 Pulse Ox 91 L 10/23/19 11:14 Intake & Output 10/22/19 10/23/19 10/23/19 18:59 06:59 18:59 Weight 55.792 kg - Exam BMI 23.6 - Constitutional General appearance: Present: average body habitus - EENT Eyes: Present: EOMI ENT: Present: hearing grossly normal - Neck Neck: Present: normal ROM - Respiratory Respiratory: bilateral: CTA - Cardiovascular Rhythm: regular Heart sounds: normal: S1, S2 - Gastrointestinal General gastrointestinal: Present: soft - Integumentary Integumentary Comment(s): tattoo over both breast puncture site clean and dry no evidence of infection Integumentary: Present: normal turgor - Musculoskeletal Musculoskeletal Comment(s): uses a wheel chair - Psychiatric Psychiatric: Present: A&O x's 3, appropriate affect, intact judgment & insight - Additional findings Additional findings: Impression: 1. Post stereotactic core biopsy right breast/pathology benign Plan: 1. Repeat right breast mammogram in 6 months with position exam at that time CC: Dr. Kothari
== END | disposition home or self-care (01) ==
LOC: WWCWWP 10:46
PROVIDERS: ATTEND Surgery
DX: Z53.9 Procedure and treatment not carried out, unspecified reason (principal)

== ENCOUNTER → 2019-10-24 | Outpatient (CLI) | payer MEDICARE ==
[~2019-10-24] MED LIST changes: +IMMUNE GLOBULIN (GAMMAGARD) 30 GM in EMPTY BAG 1 BAG IV NR; -IMMUNE GLOBULIN (GAMMAGARD) 30 GM in EMPTY BAG 1 BAG IV ONE
[2019-10-24 08:36] LABS: Basophils % (A) 0 %; Eosinophils # (A) 0.1 k/uL (0-0.7); Eosinophils % (A) 1 %; HCT 41.2 % (34.0-46.0); HGB 12.7 gm/dL (11.4-16.0); Hypochromasia Slight; Lymphocytes # (A) 1.5 k/uL (1.0-4.8); Lymphocytes % (A) 10 %; MCHC 30.7 g/dL (31.0-37.0); MCV 84.5 fL (80.0-100.0); Mean Platelet Volume 8.1; Monocytes # (A) 0.7 k/uL (0-1.0); Monocytes % (A) 4 %; Neutrophils # (A) 12.5 k/uL (1.3-7.7); Neutrophils % (A) 83 %; Platelet Count 269 k/uL (150-450); RBC 4.88 m/uL (3.80-5.40); RDW 15.7 % (11.5-15.5); WBC 15.1 k/uL (3.8-10.6)
[2019-10-24 08:50] LABS: Calcium 9.4 mg/dL (8.4-10.2); Potassium 4.7 mmol/L (3.5-5.1)
[2019-10-24 08:55] VITALS: BP 127/74; PULSE 87; RESP 18
== END | disposition home or self-care (01) ==
LOC: PROCWHC3 07:53
PROVIDERS: ATTEND Internal Medicine Infectious Disease
DX: D83.8 Other common variable immunodeficiencies (principal)
CPT/HCPCS: 80048; 85025; 82784; 96365; 96366; 96375; 36591; J2920; J1642; J1569

== ENCOUNTER → 2019-10-29 | Outpatient (CLI) | payer MEDICARE ==
[2019-10-29 16:29] LABS: Amorphous Sediment,Urine Rare /hpf; Appearance,Urine Cloudy (Clear); Bilirubin,Urine Negative (Negative); Blood,Urine Negative (Negative); Color,Urine Yellow; Glucose,Urine (UA) Negative (Negative); Ketones,Urine Negative (Negative); Leukocyte Esterase,Urine Negative (Negative); Nitrite,Urine Negative (Negative); Protein,Urine Negative (Negative); RBC,Urine 1 /hpf (0-5); Specific Gravity,Urine 1.015 (1.001-1.035); Squamous Epithelial Cell,Urine <1 /hpf (0-4); Urobilinogen,Urine <2.0 mg/dL (<2.0); WBC,Urine 1 /hpf (0-5)
[2019-10-29 16:50] LABS: Basophils % (A) 0 %; Eosinophils % (A) 0 %; HCT 39.1 % (34.0-46.0); HGB 12.3 gm/dL (11.4-16.0); Hypochromasia Slight; Lymphocytes # (A) 0.9 k/uL (1.0-4.8); Lymphocytes % (A) 13 %; MCH 26.4 pg (25.0-35.0); MCHC 31.4 g/dL (31.0-37.0); Mean Platelet Volume 8.5; Monocytes # (A) 0.4 k/uL (0-1.0); Monocytes % (A) 5 %; Neutrophils # (A) 5.9 k/uL (1.3-7.7); Neutrophils % (A) 80 %; Platelet Count 207 k/uL (150-450); RBC 4.65 m/uL (3.80-5.40); WBC 7.4 k/uL (3.8-10.6)
== END | disposition home or self-care (01) ==
LOC: LABWHC1 15:26
PROVIDERS: ATTEND Internal Medicine Critical Care Medicine
DX: R50.9 Fever, unspecified (principal)
CPT/HCPCS: 36415; 81001; 85025; 87040

== ENCOUNTER → 2020-03-31 | Outpatient (CLI) | payer MEDICARE ==
[~2020-03-31] MED LIST changes: -ACETAMINOPHEN TAB 325 MG TAB PO NR; +ALTEPLASE 2 MG VIAL (CATHFLO) IV NR; -IMMUNE GLOBULIN (GAMMAGARD) 30 GM in EMPTY BAG 1 BAG IV NR; -SODIUM CHLORIDE 0.9% 1,000 ML IV ONE; -diphenhydrAMINE 25 MG CAP PO NR; -methylPREDNISolone SOD SUCCI 40 MG/ML 1 ML VIAL IV NR
[2020-03-31 10:15] VITALS: BP 127/66; RESP 18; TEMP 99.2
== END | disposition home or self-care (01) ==
LOC: PROCWHC3 09:49
PROVIDERS: ATTEND Internal Medicine Critical Care Medicine
DX: Q32.0 Congenital tracheomalacia (principal); T85.618A Breakdown (mechanical) of other specified internal prosthetic devices, implants and grafts, initial encounter
CPT/HCPCS: 96375; J2997

== ENCOUNTER → 2020-04-01 | Day surgery (SDC) | payer MEDICARE ==
[2020-04-01 09:54] VITALS: BP 146/67; PULSE 86; RESP 16; TEMP 98.1
--- NOTE | 2020-04-01 15:54 | IR ---
Fluoroscopic portogram(mediport). HISTORY: Device malfunction. 0.1 minutes of fluoroscopy and one image submitted. The Mediport catheter appear to be coiled and its tip was in uncertain location. No aspiration could be obtained from the catheter. Report called to referring clinician. IMPRESSION: 1. Correlate for malpositioning of the catheter..
== END ==
LOC: CATHCVL 09:17
PROVIDERS: ATTEND Radiology Diagnostic Radiology
DX: T82.598A Other mechanical complication of other cardiac and vascular devices and implants, initial encounter (principal); G47.33 Obstructive sleep apnea (adult) (pediatric); K21.9 Gastro-esophageal reflux disease without esophagitis; E11.9 Type 2 diabetes mellitus without complications; J45.909 Unspecified asthma, uncomplicated; D80.1 Nonfamilial hypogammaglobulinemia; E27.40 Unspecified adrenocortical insufficiency; M79.7 Fibromyalgia; E78.5 Hyperlipidemia, unspecified; M19.90 Unspecified osteoarthritis, unspecified site; M81.0 Age-related osteoporosis without current pathological fracture; J18.9 Pneumonia, unspecified organism; B96.89 Other specified bacterial agents as the cause of diseases classified elsewhere; S22.009A Unspecified fracture of unspecified thoracic vertebra, initial encounter for closed fracture; K44.9 Diaphragmatic hernia without obstruction or gangrene; N39.0 Urinary tract infection, site not specified; N95.2 Postmenopausal atrophic vaginitis; Z98.42 Cataract extraction status, left eye; Z79.891 Long term (current) use of opiate analgesic; Z79.51 Long term (current) use of inhaled steroids; Z79.899 Other long term (current) drug therapy; Z86.19 Personal history of other infectious and parasitic diseases; Z98.41 Cataract extraction status, right eye; Z82.49 Family history of ischemic heart disease and other diseases of the circulatory system; Z87.19 Personal history of other diseases of the digestive system; Z98.890 Other specified postprocedural states; Z90.49 Acquired absence of other specified parts of digestive tract; X58.XXXA Exposure to other specified factors, initial encounter; Y83.1 Surgical operation with implant of artificial internal device as the cause of abnormal reaction of the patient, or of later complication, without mention of misadventure at the time of the procedure
CPT/HCPCS: 36598

== ENCOUNTER → 2020-04-19 | Outpatient (CLI) | payer MEDICARE ==
--- NOTE | 2020-04-19 10:55 | MM ---
Reason for exam: follow-up at short interval from prior study. Last mammogram was performed 10 months ago. History: Patient is postmenopausal. Family history of breast cancer in mother at age 75 and breast cancer in maternal grandmother at age 75. Benign MG stereo VAD BX RT of the right breast, October 17, 2019. Benign excisional biopsy of the right breast, 1989. Excisional biopsy of the left breast. Took estrogen for 6 years. Physical Findings: Nurse did not find any significant physical abnormalities on exam. MG 3D Diag Mammo W/Cad RT CC and MLO view(s) were taken of the right breast. Prior study comparison: June 18, 2019, bilateral MG 3d diag mammo w/cad [facility]. May 21, 2018, bilateral MG 3d screening mammo w/cad. The breast tissue is heterogeneously dense. This may lower the sensitivity of mammography. Previous mammotome biopsy in the right breast. There is chronic nodularity in the right breast posteriorly. Benign vascular calcifications. Grouped medial calcifications redemonstrated, recently biopsied. These results were verbally communicated with the patient and result sheet given to the patient on 04/19/20. ASSESSMENT: Benign, BI-RAD 2 RECOMMENDATION: Routine screening mammogram of both breasts in 1 year.
== END | disposition home or self-care (01) ==
LOC: RADMAMWWP 09:31
PROVIDERS: ATTEND Surgery
DX: R92.8 Other abnormal and inconclusive findings on diagnostic imaging of breast (principal)
CPT/HCPCS: 77065; G0279; 77061

== ENCOUNTER → 2020-04-29 | Outpatient (CLI) | payer MEDICARE ==
[2020-04-29 16:21] LABS: African American GFR (CKD) 88.4 (60.0-200.0); Albumin 3.9 g/dL (3.80-4.90); Albumin/Globulin Ratio 2.05 (1.60-3.17); Anion Gap 8.5 mmol/L (4.00-12.00); BUN/Creat Ratio 27.5 Ratio (12.00-20.00); Calcium 8.8 mg/dL (8.7-10.3); Carbon Dioxide 27.5 mmol/L (21.6-31.8); Chol/HDL Ratio 2.65; Globulin 1.9 g/dL (1.6-3.3); LDL Cholesterol,Calculated 80.8 mg/dL (0.0-131.0); Non-African American GFR(CKD) 76.3 (60.0-200.0); Potassium 4.2 mmol/L (3.5-5.5); Total Bilirubin 0.3 mg/dL (0.2-1.2); Total Protein 5.8 g/dL (6.2-8.2); VLDL Calculation 18.2 mg/dL (5.00-40.00)
[2020-04-29 18:30] LABS: Microalbumin Creatinine Ratio <30 mg/g Creat (0-30); Urine Creatinine 10.4 mg/dL
[2020-04-29 18:48] LABS: Hemoglobin A1C 6.6 % (4.0-6.0)
== END | disposition home or self-care (01) ==
LOC: LABWHC1 08:41
PROVIDERS: ATTEND Internal Medicine Endocrinology, Diabetes & Metabolism
DX: E10.65 Type 1 diabetes mellitus with hyperglycemia (principal)
CPT/HCPCS: 36415; 80053; 80061; 82043; 82570; 83036; 84443

== ENCOUNTER → 2020-04-29 | Outpatient (CLI) | payer MEDICARE ==
[2020-04-29 10:14] VITALS: BP 112/62; PULSE 93; RESP 20; TEMP 98.4
--- NOTE | 2020-04-29 10:38 | P.PN ---
Subjective Progress Note Date: 04/29/20 Principal diagnosis: right breast mammogram results Alley is a 65 year old white female with a routine screening mammogram on 06-18-19. The mammogram showed grouped calcifications in the subarolar region of the right breast. She was seen in consultation for Dr. Wang regarding best treatment approach for these. The patient does not feel any masses or lumps in her breast. She has no complaints of any recent infection or trauma to the breast. She underwent a stereo biopsy of the calcifications in September 2019. Pathology revealed fibrocystic changes including hyalinizing stromal fibrosis and calcifications. Since that time she is not complaining of any pain masses lumps or nodules in her breast. Six-month right breast mammogram was done on 04-19-20. This was benign BIRAD 2 , routine screening of both breast in 6 months is recommended. Family History: mother: breast cancer maternal grandmother: breast cancer Hormonal History: menarche: 13 , breast fed: no, first at 16, (11 children 8 adopted) menopause: 48 BCP: none, hormones: none Past Surgical History: gallbladder eye arm soft tissue lesions no cancer decompression of lower lumbar area pain pump left hip Medical History: decreased memory ? CVA asthma (steroid dependant) diabetic (steroid induced) osteoarthritis immune compromised (steriod and gets IGG treatments) COPD 02 dependant at night Social History: smoke: none alcohol: none drugs: none - Constitutional Constitutional: Reports sweats, Denies chills, Denies fever - EENT Comment: decreased vision Eyes: bilateral decreased vision, denies pain Ears: bilateral: tinnitus, deny: decreased hearing Ears, nose, mouth and throat: Reports sore throat, Denies headache - Breasts Breasts: bilateral: as per HPI - Cardiovascular Cardiovascular: Reports shortness of breath, Denies chest pain - Respiratory: asthma - Gastrointestinal Gastrointestinal: Denies abdominal pain, Denies diarrhea, Denies nausea, Denies vomiting - Genitourinary (Female) Genitourinary: Denies dysuria, Denies hematuria - Menstruation Menstruation: Reports postmenopausal - Musculoskeletal Comment: osteoarthritis back DJD - Integumentary Integumentary: Denies pruritus, Denies rash - Neurological Comment: spinal stenosis - Psychiatric Psychiatric: Reports anxiety, Reports depression - Endocrine Comment: diabetes Endocrine: Reports fatigue - Hematologic/Lymphatic Comment: none - Allergic/Immunologic Allergic/Immunologic: Reports as per HPI Objective - Vital Signs Vital signs: Vital Signs Temp 98.4 F 04/29/20 10:10 Pulse 93 04/29/20 10:10 Resp 20 04/29/20 10:10 BP 112/62 04/29/20 10:10 Pulse Ox 94 L 04/29/20 10:10 Intake & Output 04/28/20 04/29/20 04/29/20 18:59 06:59 18:59 Weight 56.699 kg - Exam BMI 24 - Constitutional General appearance: Present: cooperative - EENT Eyes: Present: EOMI ENT: Present: hearing grossly normal - Neck Neck: Present: normal ROM - Respiratory Details: Lungs clear on evaluation today mild decrease at the bases bilaterally - Cardiovascular Rhythm: regular Heart sounds: normal: S1, S2 - Gastrointestinal General gastrointestinal: Present: normal bowel sounds, soft - Integumentary Integumentary Comment(s): tattoo over chest wall Pain pump left hip Insulin pump right abdomen IV port right chest wall - Neurologic Neurologic Comment(s): weakness - Musculoskeletal Musculoskeletal Comment(s): weak, uses wheelchair for any distance of walking bony Prominence mid back patient status post back surgery kyphosis - Psychiatric Psychiatric: Present: A&O x's 3 - Additional findings Additional findings: breast exam: BRA: 38C inspection: grade 3 ptosis bilateral; tattoo over chest wall Palpation: Right breast: Multiple positional exam no dominant masses or nodules of concern, fibrocystic changes Right axilla: No adenopathy of concern Left breast: Multiple positional exam no dominant masses or nodules of concern, fibrocystic changes Left axilla: Negative Assessment and Plan Assessment: Impression: 1. IgG deficiency/once monthly IgG transfusions 2. Diabetes 3. Severe osteoarthritis with back pain 4. Adult onset asthma which is steroid-dependent/oxygen-dependent 5. Family history of breast cancer 6. Fibrocystic breast changes; nothing to biopsy at this time 7. CT changes right breast being followed now with mammogram Plan: 1. bilateral mammogram in 6 months 2. continued medical care of asthma 3. IV port displaced and will be moved by DR. Martins CC: DR. Wang, DR. Kothari, DR. Pelaez encounter 25 minutes, > 50% of time on planning and counselling Time with Patient: Less than 30
== END | disposition home or self-care (01) ==
LOC: WWCWWP 10:04
PROVIDERS: ATTEND Surgery
DX: Z53.9 Procedure and treatment not carried out, unspecified reason (principal)

== ENCOUNTER → 2020-05-07 | Day surgery (SDC) | payer MEDICARE ==
[2020-05-04 12:36] VITALS: BMI 24.5
[~2020-05-07] MED LIST changes: +ACETAMINOPHEN TAB 500 MG TAB PO ONE; -ALTEPLASE 2 MG VIAL (CATHFLO) IV NR; +HEPARIN SODIUM,PORCINE 5,000 UNIT/ML 1 ML VIAL SQ ONE; +HYDROCORTISONE SUCCINATE 100 MG/2 ML VIAL IV ONE; +HYDROcodone/APAP 5-325MG 1 EACH TAB PO PRN; +LACTATED RINGERS 1,000 ML IV SCH; +LIDOCAINE 1% (10MG/ML) FOR IV START INTRADERMA PRN; +LIDOCAINE 1% INJ 10MG/ML (20 ML MDV) ONE; +LIDOCAINE 1% INJ 10MG/ML (20 ML MDV) SQ ONE; +MIDAZOLAM 2 MG/2 ML VIAL ONE; +NALOXONE 0.4 MG/ML 1 ML VIAL IV PRN; +ONDANSETRON 4 MG/2 ML VIAL ONE; +PROPOFOL 10 MG/ML 20 ML VIAL IV ONE; -SODIUM CHLORIDE 0.9% 500 ML 500 ML in EMPTY BAG 1 BAG IV PRN; +SUCCINYLCHOLINE CHLORIDE 100 MG/5 ML SYR IV ONE; +fentaNYL (PF) 50 MCG/ML 2 ML AMP IVP ONE; +fentaNYL (PF) 50 MCG/ML 2 ML AMP ONE
[2020-05-07 07:26] LABS: Glucose,Whole Blood 127 mg/dL (75-99)
--- NOTE | 2020-05-07 08:53 | P.OP ---
Date of Procedure: 05/07/20 Procedure(s) Performed: PREOPERATIVE DIAGNOSIS: Immune deficiency, Port-A-Cath malfunction POSTOPERATIVE DIAGNOSIS: Same PROCEDURE: Port-A-Cath removal and replacement with fluoroscopic and ultrasound guidance SURGEON: Connie EBL: Minimal ANESTHESIA: Sedation COMPLICATIONS: None OPERATIVE PROCEDURE: Patient was brought and placed on the operative table in the supine position. The patient was sedated per anesthesia that time. The chest and neck were prepped and draped in usual sterile fashion. The previous port site in the right infraclavicular location was re-incised sharply. The port was easily excised. No gross abnormalities to the 6-Khmer Port-A-Cath was noted. The ultrasound probe was used to identify the location of the right internal jugular vein. The skin was localized with lidocaine. The Seldinger needle was advanced into the IJ under ultrasound guidance. The wire was advanced through the needle under fluoroscopic guidance into the superior vena cava. A new pocket was created through the same incision in the right infraclavicular location inferior to our incision site. The 8-Khmer catheter was tunneled from the wire entrance site to the port pocket. The port was then connected to the catheter. The dilator introducer was threaded over the guidewire. The guidewire and dilator were then removed. The catheter was advanced through the introducer and introducer was then removed. The tip was seen to be in the right atrial junction via fluoroscopy. A picture of the radiograph showing the tip at the radial digital junction was taken. Port was flushed with both saline and a Hep-Lock solution. There was good flow both in and out of the port. The port was sutured in underlying tissues using 3-0 silk sutures. The subcutaneous tissues were reapproximated using 3-0 Vicryl sutures. The skin at the port site was closed using a running 4-0 nylon suture. The skin at the neck incision site was closed using a 4-0 Monocryl stitch. Skin glue and sterile dressings then applied. DISPOSITION: Stable to recovery room
[2020-05-07 09:17] LABS: Glucose,Whole Blood 159 mg/dL (75-99)
--- NOTE | 2020-05-07 09:21 | XR ---
EXAMINATION TYPE: XR chest 1V confirm line [facility] DATE OF EXAM: 05/07/2020 HISTORY: PT HAD A RIGHT SIDE MARK CATH REMOVED AND A NEW INSERTED. COMPARISON: 10/17/2019 TECHNIQUE: Single view of the chest is submitted. FINDINGS: The Port-A-Cath is noted to be in place with its distal tip overlying the SVC. No evidence for pneumo thorax. Increasing infiltrate left lower lobe with the suspected small effusion and elevation left hemidiaphr agm. Increased right perihilar patchy density. The heart is stable. Hilar and mediastinal structures are within normal limits. Degenerative changes are seen of the dorsal spine. IMPRESSION: 1. Increasing infiltrate left lower lobe with the suspected small effusion and elevation left hemidi aphragm. Increased right perihilar patchy density. 2. Port-A-Cath placement as noted
[2020-05-07 09:22] VITALS: TEMP 96.8
[2020-05-07 09:54] VITALS: RESP 16
[2020-05-07 10:20] VITALS: PULSE 75
[2020-05-07 10:25] VITALS: BP 125/70
--- NOTE | 2020-05-07 10:43 | FL ---
Fluoroscopy HISTORY: Central venous catheter placement 19 seconds fluoroscopy time supplied to the referring clinician. 2 intraoperative C-arm images docum ent the procedure. See dictated report from general surgery. Incidental selective right mainstem intu bation noted on one of the 2 exams, endotracheal tube repositioned on the second exam.
== END ==
LOC: OR 06:14
PROVIDERS: ATTEND Surgery
DX: T82.524A Displacement of infusion catheter, initial encounter (principal); D84.9 Immunodeficiency, unspecified; D80.1 Nonfamilial hypogammaglobulinemia; J44.9 Chronic obstructive pulmonary disease, unspecified; E11.9 Type 2 diabetes mellitus without complications; E78.5 Hyperlipidemia, unspecified; K21.9 Gastro-esophageal reflux disease without esophagitis; G47.33 Obstructive sleep apnea (adult) (pediatric); F41.9 Anxiety disorder, unspecified; M79.7 Fibromyalgia; Z88.0 Allergy status to penicillin; Z88.2 Allergy status to sulfonamides; Z88.6 Allergy status to analgesic agent; Z88.8 Allergy status to other drugs, medicaments and biological substances; Z79.52 Long term (current) use of systemic steroids; Z79.891 Long term (current) use of opiate analgesic; Z79.899 Other long term (current) drug therapy; Z79.4 Long term (current) use of insulin; Z79.51 Long term (current) use of inhaled steroids; Z90.49 Acquired absence of other specified parts of digestive tract; Z98.41 Cataract extraction status, right eye; Z98.42 Cataract extraction status, left eye; Z98.890 Other specified postprocedural states; Z80.3 Family history of malignant neoplasm of breast; Z99.81 Dependence on supplemental oxygen
CPT/HCPCS: 77001; 36590; 36561; C1788; J2250; J1644; J1720; J0690; J2405; J2001; J3010; J1642; J0330; J2704

== ENCOUNTER 2020-06-06 09:59 | Emergency (ER) | payer MEDICARE ==
[2020-06-06 10:05] VITALS: RESP 16
[2020-06-06] MEDS ORDERED: SODIUM CHLORIDE 0.9% 1,000 ML IV STA (10:29)
--- NOTE | 2020-06-06 10:32 | ED ---
General Adult HPI <Rohit Bruno - Last Filed: 06/06/20 12:02> - General Source: patient, RN notes reviewed Mode of arrival: wheelchair Limitations: no limitations <Javad Ogden - Last Filed: 06/06/20 12:07> - General Chief complaint: Urogenital Stated complaint: Poss UTI Time Seen by Provider: 06/06/20 10:11 - History of Present Illness Initial comments: 65-year-old female with a comp located past medical history including COPD, IDDM, hyperlipidemia, hypertension, fibromyalgia, GERD percent to the emergency room for a chief complaint of dysuria. Patient reports that she has had pain with urination since this morning. States that she urinated this morning it was foul smelling. Patient states that since that time she has had a lot of water to drink and her urine seems more normal but she is concerned she may have a UTI. She has chronic back pain that she admits may be slightly increased. She admits to some mild abdominal discomfort that has been ongoing for the past 3 days. She denies fevers or chills.Patient has no other complaints at this time including shortness of breath, chest pain, nausea or vomiting, headache, or visual changes. (Jaavd Ogden) - Related Data Home Medications Medication Instructions Recorded Confirmed Escitalopram [Lexapro] 30 mg PO QAM 01/01/14 05/21/20 Spironolactone [Aldactone] 25 mg PO TID 01/01/14 05/21/20 ALPRAZolam [Xanax] 0.5 mg PO TID 01/02/14 05/21/20 Potassium Chloride ER [K-Dur 20] 60 meq PO BID 11/06/14 05/21/20 Amitriptyline HCl [Elavil] 30 mg PO HS 12/07/14 05/21/20 predniSONE [Deltasone] 20 mg PO DAILY 09/09/16 05/21/20 traZODone HCL 75 mg PO HS 09/10/16 05/21/20 Gammagard 10 gm IV Q28D 07/24/17 05/21/20 Insulin Aspart (For Pump) [NovoLOG 0.01 unit SQ-PUMP CONTINUOUS 07/24/17 05/21/20 (For Pump)] buPROPion XL [Wellbutrin XL] 300 mg PO DAILY 07/24/17 05/21/20 Furosemide [Lasix] 80 mg PO BID 09/07/17 05/21/20 Bupivicaine 1 dose INTRATHECA DIRECTED 11/23/17 05/21/20 Fluticasone/Salmeterol [Advair Hfa 2 puff INHALATION RT-BID 04/09/19 05/21/20 230-21 Mcg Inhaler] Pregabalin [Lyrica] 100 mg PO TID 04/09/19 05/21/20 Fluconazole [Diflucan] 100 mg PO DAILY PRN 08/01/19 05/21/20 Gabapentin [Neurontin] 100 mg PO TID 08/01/19 05/21/20 Ipratropium Amanda [Atrovent Hfa] 2 puff INHALATION QID 08/01/19 05/21/20 Levalbuterol Hfa Inhaler [Xopenex 1 puff INHALATION Q6HR PRN 08/01/19 05/21/20 Hfa Inhaler] Montelukast [Singulair] 10 mg PO HS 08/01/19 05/21/20 Nystatin 1 applic PO DAILY PRN 08/01/19 05/21/20 Simvastatin [Zocor] 20 mg PO HS 08/01/19 05/21/20 Budesonide [Pulmicort] 0.5 mg INHALATION BID 03/31/20 05/21/20 busPIRone HCl [Buspar] 5 mg PO BID 04/09/20 05/21/20 Previous Rx's Medication Instructions Recorded Hydrocodone/Acetaminophen [[place] 1 tab PO Q6HR PRN 3 Days #10 tab 05/07/20 5-325] Levofloxacin [Levaquin] 750 mg PO DAILY 5 Days #5 tab 06/06/20 Allergies Allergy/AdvReac Type Severity Reaction Status Date / Time crisaborole [From Eucrisa] Allergy Rash/Hives Verified 06/06/20 10:05 indomethacin sodium Allergy severe Verified 06/06/20 10:05 [From Indocin] Confusion cefuroxime axetil AdvReac Severe Abdominal Verified 06/06/20 10:05 [From Ceftin] Pain ciprofloxacin HCl AdvReac Severe Abdominal Verified 06/06/20 10:05 [From Cipro] Pain erythromycin base AdvReac Unknown Abdominal Verified 06/06/20 10:05 [Erythromycin Base] Pain sulfamethoxazole AdvReac Unknown Abdominal Verified 06/06/20 10:05 [From Bactrim] Pain trimethoprim [From Bactrim] AdvReac Unknown Abdominal Verified 06/06/20 10:05 Pain NSAIDS (Non-Steroidal AdvReac Dyspnea Verified 06/06/20 10:05 Anti-Inflamma Penicillins AdvReac Nausea & Verified 06/06/20 10:05 Vomiting Sulfa (Sulfonamide AdvReac Abdominal Verified 06/06/20 10:05 Antibiotics) Pain Review of Systems ROS Other: All systems not noted in ROS Statement are negative. <Rohit Bruno - Last Filed: 06/06/20 12:02> ROS Other: All systems not noted in ROS Statement are negative. <Javad Ogden - Last Filed: 06/06/20 12:07> ROS Statement: Those systems with pertinent positive or pertinent negative responses have been documented in the HPI. Past Medical History Past Medical History: Asthma, COPD, Diabetes Mellitus, Eye Disorder, Fibromyalgia, GERD/Reflux, Hyperlipidemia, Hypertension, Musculoskeletal Disorder, Pneumonia, Respiratory Disorder, Skin Disorder Additional Past Medical History / Comment(s): Bronchial asthma, tracheobronchomalacia, common variable immunoglobulin deficiency. Chronic back problems. chronic steroid use, suspected component of adrenal insufficiency due to chronic steroid use. Hiatal hernia. 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 Pneumonia / In ICU in [place] after Back surgery - March 2019. Mycobacterium gordonae soft tissue infection. cataracts, glaucoma, fibromyalgia, chronic pain, compression fracture of the spine. History of Any Multi-Drug Resistant Organisms: MRSA Date of last positivie culture/infection: 2010 MDRO Source:: right hand Past Surgical History: Appendectomy, Back Surgery, Breast Surgery, Cholecystectomy, Tubal Ligation Additional Past Surgical History / Comment(s): MULT BRONCHS, WASHINGS, LAST 04/17/14. EXC [facility] CATARACT. BLEPHAROPLASTY/ R&L BREAST BIOPSIES; PORT A CATH IN LEFT CHEST-CHANGED TO RT CHEST,EXC MYCOBACTERIUM AREAS RT ARM 2011; UPPER TEETH EXTRACTED. RT SALPINGECTOMY/FALLOPIAN TUBE REMOVED, I&D BOIL.Jul [facility] EYE AND MUSCLE SURGERY; - mouth (bone) surgery. Pain pump insertion to left buttocks - October 2016. Colonoscopy 2014. Hiatal hernia surgeries 2015&2016. Back surgery (Decompresssion) - February 2019 Past Anesthesia/Blood Transfusion Reactions: Motion Sickness, Postoperative Nausea & Vomiting (PONV) Past Psychological History: Anxiety, Depression Smoking Status: Never smoker Past Alcohol Use History: None Reported Past Drug Use History: None Reported - Past Family History Mother Family Medical History: Cancer Additional Family Medical History / Comment(s): BREAST CANCER. Father Additional Family Medical History / Comment(s): r/t suicide <Javad Ogden - Last Filed: 06/06/20 12:07> General Exam Limitations: no limitations General appearance: alert, in no apparent distress Head exam: Present: atraumatic, normocephalic, normal inspection Eye exam: Present: normal appearance, PERRL, EOMI. Absent: scleral icterus, conjunctival injection, periorbital swelling ENT exam: Present: normal exam, mucous membranes moist Neck exam: Present: normal inspection, full ROM. Absent: tenderness, meningismus, lymphadenopathy Respiratory exam: Present: normal lung sounds bilaterally. Absent: respiratory distress, wheezes, rales, rhonchi, stridor Cardiovascular Exam: Present: regular rate, normal rhythm, normal heart sounds. Absent: systolic murmur, diastolic murmur, rubs, gallop, clicks GI/Abdominal exam: Present: tenderness (minimal suprapubic tenderness. no significant RLQ or LLQ abdominal tenderness. no upper abdominal tenderness), normal bowel sounds. Absent: distended, guarding, rebound, rigid Back exam: Absent: CVA tenderness (R), CVA tenderness (L) <Javad Ogden - Last Filed: 06/06/20 12:07> Course <Rohit Bruno - Last Filed: 06/06/20 12:02> Vital Signs 06/06/20 06/06/20 06/06/20 10:02 11:11 11:30 Temperature 98.6 F Pulse Rate 91 84 Respiratory 16 16 Rate Blood Pressure 104/61 125/69 O2 Sat by Pulse 96 92 L 91 L Oximetry - Reevaluation(s) Reevaluation #1: 06/06/20 12:02 PA supervision: I personally evaluate this patient patient does have evidence of UTI with some flank pain. Urinalysis looks suspicious for urinary tract infection. Patient also demonstrates evidence of dehydration. She will receive IV fluids and antibiotics and be discharged on appropriate medication. I do agree with the assessment and plan (Rohit Bruno) Medical Decision Making - Lab Data Result diagrams: 06/06/20 11:03 06/06/20 11:03 <Rohit Bruno - Last Filed: 06/06/20 12:02> - Lab Data Result diagrams: 06/06/20 11:03 06/06/20 11:03 <Javad Ogden - Last Filed: 06/06/20 12:07> - Medical Decision Making HPI physical exam as documented. Urinalysis did show 182 white blood cells with large leukocyte Estrace. No CVA tenderness. CBC shows leukocytosis with a left shift likely reactive to urinary tract infection. CMP reveals mild dehydration with a BUN to creatinine ratio of 42. She was given a liter of fluids. Slight hemolysis a potassium at 5.3. Patient was given a dose of Rocephin here in the emergency room which she is agreeable to given her ALLERGY of nausea vomiting with this. I did recommend Keflex for discharge home to treat her urinary tract infection however patient and both prefer Levaquin. I discussed black box warnings with both patient and who would still prefer Levaquin as this did not give her GI upset. They fear Keflex will give her nausea vomiting diarrhea. Although patient does not have severe CVA tenderness does have increased back pain above her normal. Rx will be written to cover for a pyelonephritis and pt will be discharged home. I did discuss strict return parameters which she is agreeable to. (Javad Ogden) - Lab Data Lab Results 06/06/20 06/06/20 06/06/20 Range/Units 10: 11: 11:03 WBC 14.0 H (3.8-10.6) k/uL RBC 4.52 (3.80-5.40) m/uL Hgb 10.9 L (11.4-16.0) gm/dL Hct 34.5 (34.0-46.0) % MCV 76.5 L (80.0-100.0) fL MCH 24.0 L (25.0-35.0) pg MCHC 31.4 (31.0-37.0) g/dL RDW 16.3 H (11.5-15.5) % Plt Count 193 (150-450) k/uL Neutrophils % 91 % Lymphocytes % 4 % Monocytes % 3 % Eosinophils % 1 % Basophils % 1 % Neutrophils # 12.7 H (1.3-7.7) k/uL Lymphocytes # 0.6 L (1.0-4.8) k/uL Monocytes # 0.4 (0-1.0) k/uL Eosinophils # 0.1 (0-0.7) k/uL Basophils # 0.1 (0-0.2) k/uL Manual Slide Review Performed Hypochromasia Marked Anisocytosis Slight Microcytosis Slight Sodium 136 L (137-145) mmol/L Potassium 5.3 H (3.5-5.1) mmol/L Chloride 104 (98-107) mmol/L Carbon Dioxide 26 (22-30) mmol/L Anion Gap 6 mmol/L BUN 34 H (7-17) mg/dL Creatinine 0.80 (0.52-1.04) mg/dL Est GFR (CKD-EPI)AfAm 88 (>60 ml/min/1.73 sqM) Est GFR (CKD-EPI)NonAf 77 (>60 ml/min/1.73 sqM) Glucose 165 H (74-99) mg/dL Plasma Lactic Acid Geovanni (0.7-2.0) mmol/L Calcium 8.9 (8.4-10.2) mg/dL Total Bilirubin 0.5 (0.2-1.3) mg/dL AST 52 H (14-36) U/L ALT 28 (4-34) U/L Alkaline Phosphatase 84 (38-126) U/L Total Protein 6.4 (6.3-8.2) g/dL Albumin 3.8 (3.5-5.0) g/dL Amylase 60 (30-110) U/L Lipase 65 (23-300) U/L Urine Color Colorless Urine Appearance Cloudy H (Clear) Urine pH 6.0 (5.0-8.0) Ur Specific [place] 1.007 (1.001-1.035) Urine Protein Negative (Negative) Urine Glucose (UA) Negative (Negative) Urine Ketones Negative (Negative) Urine Blood Moderate H (Negative) Urine Nitrite Negative (Negative) Urine Bilirubin Negative (Negative) Urine Urobilinogen <2.0 (<2.0) mg/dL Ur Leukocyte Esterase Large H (Negative) Urine RBC 3 (0-5) /hpf Urine WBC >182 H (0-5) /hpf Ur Squamous Epith Cells <1 (0-4) /hpf Urine Bacteria Rare H (None) /hpf Hyaline Casts 3 H (0-2) /lpf 06/06/20 Range/Units 11:03 WBC (3.8-10.6) k/uL RBC (3.80-5.40) m/uL Hgb (11.4-16.0) gm/dL Hct (34.0-46.0) % MCV (80.0-100.0) fL MCH (25.0-35.0) pg MCHC (31.0-37.0) g/dL RDW (11.5-15.5) % Plt Count (150-450) k/uL Neutrophils % % Lymphocytes % % Monocytes % % Eosinophils % % Basophils % % Neutrophils # (1.3-7.7) k/uL Lymphocytes # (1.0-4.8) k/uL Monocytes # (0-1.0) k/uL Eosinophils # (0-0.7) k/uL Basophils # (0-0.2) k/uL Manual Slide Review Hypochromasia Anisocytosis Microcytosis Sodium (137-145) mmol/L Potassium (3.5-5.1) mmol/L Chloride (98-107) mmol/L Carbon Dioxide (22-30) mmol/L Anion Gap mmol/L BUN (7-17) mg/dL Creatinine (0.52-1.04) mg/dL Est GFR (CKD-EPI)AfAm (>60 ml/min/1.73 sqM) Est GFR (CKD-EPI)NonAf (>60 ml/min/1.73 sqM) Glucose (74-99) mg/dL Plasma Lactic Acid [place] 1.4 (0.7-2.0) mmol/L Calcium (8.4-10.2) mg/dL Total Bilirubin (0.2-1.3) mg/dL AST (14-36) U/L ALT (4-34) U/L Alkaline Phosphatase (38-126) U/L Total Protein (6.3-8.2) g/dL Albumin (3.5-5.0) g/dL Amylase (30-110) U/L Lipase (23-300) U/L Urine Color Urine Appearance (Clear) Urine pH (5.0-8.0) Ur Specific [place] (1.001-1.035) Urine Protein (Negative) Urine Glucose (UA) (Negative) Urine Ketones (Negative) Urine Blood (Negative) Urine Nitrite (Negative) Urine Bilirubin (Negative) Urine Urobilinogen (<2.0) mg/dL Ur Leukocyte Esterase (Negative) Urine RBC (0-5) /hpf Urine WBC (0-5) /hpf Ur Squamous Epith Cells (0-4) /hpf Urine Bacteria (None) /hpf Hyaline Casts (0-2) /lpf Disposition <Rohit Bruno - Last Filed: 06/06/20 12:02> Is patient prescribed a controlled substance at d/c from ED?: No Time of Disposition: 12:03 <Javad Ogden - Last Filed: 06/06/20 12:07> Clinical Impression: Urinary tract infection Disposition: HOME SELF-CARE Condition: Good Instructions (If sedation given, give patient instructions): Urinary Tract Infection in Women (ED) Additional Instructions: Please take antibiotic as directed. Drink plenty of fluids. Follow-up with your doctor in one to 2 days. Return to the emergency room for any worsening symptoms. Prescriptions: Levofloxacin [Levaquin] 750 mg PO DAILY 5 Days #5 tab Referrals: Ponce Kothari MD [Primary Care Provider] - 1-2 days
[2020-06-06 10:52] LABS: Appearance,Urine Cloudy (Clear); Bacteria,Urine Rare /hpf; Bilirubin,Urine Negative (Negative); Blood,Urine Moderate (Negative); Color,Urine Colorless; Glucose,Urine (UA) Negative (Negative); Hyaline Casts,Urine 3 /lpf (0-2); Ketones,Urine Negative (Negative); Leukocyte Esterase,Urine Large (Negative); Nitrite,Urine Negative (Negative); Protein,Urine Negative (Negative); RBC,Urine 3 /hpf (0-5); Specific Gravity,Urine 1.007 (1.001-1.035); Squamous Epithelial Cell,Urine <1 /hpf (0-4); Urobilinogen,Urine <2.0 mg/dL (<2.0); WBC,Urine >182 /hpf (0-5)
[2020-06-06 11:31] LABS: Anisocytosis Slight; Basophils # (A) 0.1 k/uL (0-0.2); Basophils % (A) 1 %; Eosinophils # (A) 0.1 k/uL (0-0.7); Eosinophils % (A) 1 %; HCT 34.5 % (34.0-46.0); HGB 10.9 gm/dL (11.4-16.0); Hypochromasia Marked; Lymphocytes # (A) 0.6 k/uL (1.0-4.8); Lymphocytes % (A) 4 %; MCHC 31.4 g/dL (31.0-37.0); MCV 76.5 fL (80.0-100.0); Mean Platelet Volume 7.7; Microcytosis Slight; Monocytes # (A) 0.4 k/uL (0-1.0); Monocytes % (A) 3 %; Neutrophils # (A) 12.7 k/uL (1.3-7.7); Neutrophils % (A) 91 %; Platelet Count 193 k/uL (150-450); RBC 4.52 m/uL (3.80-5.40); RDW 16.3 % (11.5-15.5)
[2020-06-06 11:34] LABS: Albumin 3.8 g/dL (3.5-5.0); Calcium 8.9 mg/dL (8.4-10.2); Total Bilirubin 0.5 mg/dL (0.2-1.3); Total Protein 6.4 g/dL (6.3-8.2)
[2020-06-06 11:37] LABS: Potassium 5.3 mmol/L (3.5-5.1)
[2020-06-06] MEDS ORDERED: cefTRIAXone IN SWFI 1,000 MG/10 ML SYRINGE IVP STA (11:49)
[2020-06-06 11:58] VITALS: BP 125/69; PULSE 84
[2020-06-06 12:09] VITALS: TEMP 98
== END 2020-06-06 12:11 | disposition home or self-care (01) ==
LOC: EC 09:59
DX: N39.0 Urinary tract infection, site not specified (principal); E86.0 Dehydration; F32.9 Major depressive disorder, single episode, unspecified; F41.9 Anxiety disorder, unspecified; J44.9 Chronic obstructive pulmonary disease, unspecified; E11.9 Type 2 diabetes mellitus without complications; M79.7 Fibromyalgia; K21.9 Gastro-esophageal reflux disease without esophagitis; E78.5 Hyperlipidemia, unspecified; I10 Essential (primary) hypertension; Z79.51 Long term (current) use of inhaled steroids; Z96.41 Presence of insulin pump (external) (internal); Z79.899 Other long term (current) drug therapy; Z88.0 Allergy status to penicillin; Z88.1 Allergy status to other antibiotic agents; Z88.2 Allergy status to sulfonamides; Z88.6 Allergy status to analgesic agent; Z88.8 Allergy status to other drugs, medicaments and biological substances; Z86.14 Personal history of Methicillin resistant Staphylococcus aureus infection; Z98.42 Cataract extraction status, left eye; Z98.41 Cataract extraction status, right eye
CPT/HCPCS: 36415; 80053; 82150; 83605; 83690; 85025; 81001; 87086; 99283; 96374; 96361; J0696

== ENCOUNTER 2020-07-21 17:02 | Inpatient (IN) | payer MEDICARE ==
[2020-07-21] MEDS ORDERED: SODIUM CHLORIDE 0.9% 500 ML 500 ML IV SCH (18:45)
[2020-07-21 19:04] LABS: Appearance,Urine Clear (Clear); Bilirubin,Urine Negative (Negative); Blood,Urine Negative (Negative); Color,Urine Yellow; Glucose,Urine (UA) Negative (Negative); Ketones,Urine Negative (Negative); Leukocyte Esterase,Urine Negative (Negative); Nitrite,Urine Negative (Negative); Protein,Urine Negative (Negative); Urobilinogen,Urine <2.0 mg/dL (<2.0)
[2020-07-21 19:11] LABS: Albumin 3.2 g/dL (3.5-5.0); Calcium 8.2 mg/dL (8.4-10.2); Potassium 4.6 mmol/L (3.5-5.1); Total Bilirubin 0.3 mg/dL (0.2-1.3); Total Protein 6.2 g/dL (6.3-8.2)
[2020-07-21 19:26] LABS: Partial Thromboplastin Time 24.6 sec (22.0-30.0); Prothrombin Time 10.2 sec (9.0-12.0)
--- NOTE | 2020-07-21 19:28 | XR ---
EXAMINATION TYPE: XR chest 2V DATE OF EXAM: 07/21/2020 COMPARISON: 07/19/2020 HISTORY: Fever TECHNIQUE: 2 views FINDINGS: There is pulmonary vascular congestion and pulmonary edema. There is right central venous c atheter with tip in the right atrium. There are chest leads. There is linear density at the lung base s. IMPRESSION: There is infiltrate and atelectasis at the lung bases with probably some congestive heart failure. Heart failure appears new compared to recent exam. Pulmonary infiltrates increased.
[2020-07-21 19:34] LABS: Anisocytosis Slight; Basophils % (A) 0 %; Eosinophils % (A) 0 %; HCT 32.4 % (34.0-46.0); HGB 10.1 gm/dL (11.4-16.0); Hypochromasia Moderate; Lymphocytes # (A) 0.4 k/uL (1.0-4.8); Lymphocytes % (A) 7 %; MCH 22.4 pg (25.0-35.0); MCV 72.2 fL (80.0-100.0); Mean Platelet Volume 7.8; Microcytosis Moderate; Monocytes # (A) 0.2 k/uL (0-1.0); Monocytes % (A) 4 %; Neutrophils # (A) 4.8 k/uL (1.3-7.7); Neutrophils % (A) 87 %; Platelet Count 171 k/uL (150-450); RBC 4.49 m/uL (3.80-5.40); RDW 17.7 % (11.5-15.5); WBC 5.5 k/uL (3.8-10.6)
--- NOTE | 2020-07-21 21:10 | ED ---
General Adult HPI - General Chief complaint: Weakness Stated complaint: weakness, pneumonia Time Seen by Provider: 07/21/20 18:02 Source: patient Mode of arrival: EMS Limitations: physical limitation - History of Present Illness Initial comments: 65-year-old female patient with past medical history significant for asthma, COPD, diabetes maintained on a pump, hypertension, tracheal bronchomalacia presents to the emergency department today for evaluation of increased shortness of breath and weakness. 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 Patient states today she just feels worse and her breathing is becoming more labored so she presented here for further evaluation. Patient denies any fever or chills. Does report some mild nausea. Denies any chest pain. States her cough is productive. She does do breathing treatments at home. Patient denies any recent rash, abdominal pain, nausea, vomiting, diarrhea, constipation, back pain, numbness, tingling, dizziness, weakness, hematuria, dysuria, urinary urgency, urinary frequency, headache, visual changes, or any other complaints. - Related Data Home Medications Medication Instructions Recorded Confirmed Escitalopram [Lexapro] 30 mg PO QAM 01/01/14 07/21/20 Spironolactone [Aldactone] 25 mg PO TID 01/01/14 07/21/20 Potassium Chloride ER [K-Dur 20] 60 meq PO BID 11/06/14 07/21/20 Amitriptyline HCl [Elavil] 30 mg PO HS 12/07/14 07/21/20 traZODone HCL 75 mg PO HS 09/10/16 07/21/20 Insulin Aspart (For Pump) [NovoLOG 0.01 unit SQ-PUMP CONTINUOUS 07/24/17 07/21/20 (For Pump)] buPROPion XL [Wellbutrin XL] 450 mg PO DAILY 07/24/17 07/21/20 Fluticasone/Salmeterol [Advair Hfa 2 puff INHALATION RT-BID 04/09/19 07/21/20 230-21 Mcg Inhaler] Pregabalin [Lyrica] 100 mg PO TID 04/09/19 07/21/20 Montelukast [Singulair] 10 mg PO HS 08/01/19 07/21/20 Nystatin 500,000 unit PO QID PRN 08/01/19 07/21/20 Budesonide [Pulmicort] 0.5 mg INHALATION RT-BID 03/31/20 07/21/20 ALPRAZolam [Xanax] 0.25 mg PO HS PRN 07/21/20 07/21/20 ALPRAZolam [Xanax] 0.5 mg PO TID 07/21/20 07/21/20 Albuterol Inhaler [Ventolin Hfa 2 puff INHALATION RT-QID PRN 07/21/20 07/21/20 Inhaler] Ascorbic Acid [Vitamin C] 1,000 mg PO DAILY 07/21/20 07/21/20 Cyclobenzaprine [Flexeril] 10 mg PO TID PRN 07/21/20 07/21/20 Fluticasone Nasal [place] [Flonase 1 spray EA NOSTRIL DAILY 07/21/20 07/21/20 Nasal [place]] Furosemide [Lasix] 20 mg PO BID 07/21/20 07/21/20 Ipratropium-Albuterol Nebulize 3 ml INHALATION RT-TID PRN 07/21/20 07/21/20 [Duoneb 0.5 mg-3 mg/3 ml Soln] Magnesium Oxide [Magox 400] 400 mg PO DAILY@119907/21/20 07/21/20 Pantoprazole [Protonix] 40 mg PO DAILY 07/21/20 07/21/20 Pravastatin Sodium [Pravachol] 10 mg PO HS 07/21/20 07/21/20 Promethazine 6.25MG/5Ml [Phenergan 6.25 mg PO DIRECTED PRN 07/21/20 07/21/20 Syrup] Ubidecarenone [Co Q-10] 200 mg PO DAILY@1200 07/21/20 07/21/20 Vitamin B-Complex W/Vit C 1 tab PO DAILY 07/21/20 07/21/20 busPIRone HCl [Buspar] 20 mg PO BID 07/21/20 07/21/20 guaiFENesin [Mucinex] 600 mg PO BID PRN 07/21/20 07/21/20 predniSONE 20 mg PO DAILY 07/21/20 07/21/20 Previous Rx's Medication Instructions Recorded Hydrocodone/Acetaminophen [[place] 1 tab PO Q6HR PRN 3 Days #10 tab 05/07/20 5-325] Levofloxacin [Levaquin] 750 mg PO DAILY 5 Days #5 tab 06/06/20 Allergies Allergy/AdvReac Type Severity Reaction Status Date / Time crisaborole [From Eucrisa] Allergy Rash/Hives Verified 07/21/20 20:14 indomethacin sodium Allergy severe Verified 07/21/20 20:14 [From Indocin] Confusion cefuroxime axetil AdvReac Severe Abdominal Verified 07/21/20 20:14 [From Ceftin] Pain ciprofloxacin HCl AdvReac Severe Abdominal Verified 07/21/20 20:14 [From Cipro] Pain erythromycin base AdvReac Unknown Abdominal Verified 07/21/20 20:14 [Erythromycin Base] Pain sulfamethoxazole AdvReac Unknown Abdominal Verified 07/21/20 20:14 [From Bactrim] Pain trimethoprim [From Bactrim] AdvReac Unknown Abdominal Verified 07/21/20 20:14 Pain NSAIDS (Non-Steroidal AdvReac Dyspnea Verified 07/21/20 20:14 Anti-Inflamma Penicillins AdvReac Nausea & Verified 07/21/20 20:14 Vomiting Sulfa (Sulfonamide AdvReac Abdominal Verified 07/21/20 20:14 Antibiotics) Pain Review of Systems ROS Statement: Those systems with pertinent positive or pertinent negative responses have been documented in the HPI. ROS Other: All systems not noted in ROS Statement are negative. Past Medical History Past Medical History: Asthma, COPD, Diabetes Mellitus, Eye Disorder, Fibromyalgia, GERD/Reflux, Hyperlipidemia, Hypertension, Musculoskeletal Disorder, Pneumonia, Respiratory Disorder, Skin Disorder Additional Past Medical History / Comment(s): Bronchial asthma, tracheobronchomalacia, common variable immunoglobulin deficiency. Chronic back problems. chronic steroid use, suspected component of adrenal insufficiency due to chronic steroid use. Hiatal hernia. 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 Pneumonia / In ICU in [place] after Back surgery - March 2019. Mycobacterium gordonae soft tissue infection. cataracts, glaucoma, fibromyalgia, chronic pain, compression fracture of the spine. History of Any Multi-Drug Resistant Organisms: MRSA Date of last positivie culture/infection: 2010 MDRO Source:: right hand Past Surgical History: Appendectomy, Back Surgery, Breast Surgery, Cholecy stectomy, Tubal Ligation Additional Past Surgical History / Comment(s): MULT BRONCHS, WASHINGS, LAST 04/17/14. EXC [facility] CATARACT. BLEPHAROPLASTY/ R&L BREAST BIOPSIES; PORT A CATH IN LEFT CHEST-CHANGED TO RT CHEST,EXC MYCOBACTERIUM AREAS RT ARM 2011; UPPER TEETH EXTRACTED. RT SALPINGECTOMY/FALLOPIAN TUBE REMOVED, I&D BOIL.[facility] EYE AND MUSCLE SURGERY; - mouth (bone) surgery. Pain pump insertion to left buttocks - October 2016. Colonoscopy 2014. Hiatal hernia surgeries 2014&2015. Back surgery (Decompresssion) - February 2019 Past Anesthesia/Blood Transfusion Reactions: Motion Sickness, Postoperative Nausea & Vomiting (PONV) Past Psychological History: Anxiety, Depression Smoking Status: Former smoker Past Alcohol Use History: None Reported Past Drug Use History: None Reported - Past Family History Mother Family Medical History: Cancer Additional Family Medical History / Comment(s): BREAST CANCER. Father Additional Family Medical History / Comment(s): r/t suicide General Exam Limitations: physical limitation General appearance: alert, in no apparent distress, other (This is a well- developed, well-nourished adult female patient in no acute distress. Vital signs upon presentation are temperature 98.2F, pulse 76, respirations 20, blood pressure 121/66, pulse ox 96% on room air.) ENT exam: Present: normal exam, normal oropharynx, mucous membranes moist Respiratory exam: Present: wheezes (Expiratory posterior lung wallace), other (tachypnea; pursed lip). Absent: normal lung sounds bilaterally, respiratory distress, rales, rhonchi, stridor Cardiovascular Exam: Present: regular rate, normal rhythm, normal heart sounds. Absent: systolic murmur, diastolic murmur, rubs, gallop, clicks GI/Abdominal exam: Present: soft, normal bowel sounds. Absent: distended, tenderness, guarding, rebound, rigid Neurological exam: Present: alert, oriented X3, CN II-XII intact Psychiatric exam: Present: normal affect, normal mood Skin exam: Present: warm, dry, intact, normal color. Absent: rash Course Vital Signs 07/21/20 07/21/20 07/21/20 17:31 17:32 17:34 Temperature 98.2 F 97.3 F L Pulse Rate 76 81 Respiratory 20 22 Rate Blood Pressure 121/66 113/58 O2 Sat by Pulse 96 74 L 90 L Oximetry 07/21/20 19:32 Temperature Pulse Rate 73 Respiratory 18 Rate Blood Pressure 116/79 O2 Sat by Pulse 95 Oximetry Medical Decision Making - Medical Decision Making 65-year-old female patient presents to the emergency department today for evaluation of shortness of breath and increased weakness. She was diagnosed with pneumonia on Sunday and started on Levaquin that she is not feeling any better. Physical examination did reveal expiratory wheezing in the posterior lung wallace. Does wear 2 L of oxygen sometimes at night but does not require during the day. Labs reviewed and did reveal normal white blood cell count of 5.5, lymphocytes 0.4. Creatinine elevated at 33 and 1.29. She did test positive for COVID-19. Patient is requiring approximate 5 L of oxygen while here is maintaining her saturations between 90-93%. We will start Lovenox and dexamethasone. We will also order Pro Air inhaler. Dr. Kothari will be consulted. - Lab Data Result diagrams: 07/21/20 18:55 07/21/20 18:55 Lab Results 07/21/20 07/21/20 07/21/20 Range/Units 18:55 18:55 18:55 WBC 5.5 (3.8-10.6) k/uL RBC 4.49 (3.80-5.40) m/uL Hgb 10.1 L (11.4-16.0) gm/dL Hct 32.4 L (34.0-46.0) % MCV 72.2 L (80.0-100.0) fL MCH 22.4 L (25.0-35.0) pg MCHC 31.0 (31.0-37.0) g/dL RDW 17.7 H (11.5-15.5) % Plt Count 171 (150-450) k/uL MPV 7.8 Neutrophils % 87 % Lymphocytes % 7 % Monocytes % 4 % Eosinophils % 0 % Basophils % 0 % Neutrophils # 4.8 (1.3-7.7) k/uL Lymphocytes # 0.4 L (1.0-4.8) k/uL Monocytes # 0.2 (0-1.0) k/uL Eosinophils # 0.0 (0-0.7) k/uL Basophils # 0.0 (0-0.2) k/uL Hypochromasia Moderate Anisocytosis Slight Microcytosis Moderate PT 10.2 (9.0-12.0) sec INR 1.0 (<1.2) APTT 24.6 (22.0-30.0) sec D-Dimer (<0.60) mg/L FEU Sodium (137-145) mmol/L Potassium (3.5-5.1) mmol/L Chloride (98-107) mmol/L Carbon Dioxide (22-30) mmol/L Anion Gap mmol/L BUN (7-17) mg/dL Creatinine (0.52-1.04) mg/dL Est GFR (CKD-EPI)AfAm (>60 ml/min/1.73 sqM) Est GFR (CKD-EPI)NonAf (>60 ml/min/1.73 sqM) Glucose (74-99) mg/dL Plasma Lactic Acid [place] (0.7-2.0) mmol/L Calcium (8.4-10.2) mg/dL Total Bilirubin (0.2-1.3) mg/dL AST (14-36) U/L ALT (4-34) U/L Alkaline Phosphatase (38-126) U/L NT-Pro-B Natriuret Pep pg/mL Total Protein (6.3-8.2) g/dL Albumin (3.5-5.0) g/dL Urine Color Yellow Urine Appearance Clear (Clear) Urine pH 6.0 (5.0-8.0) Ur Specific [place] 1.010 (1.001-1.035) Urine Protein Negative (Negative) Urine Glucose (UA) Negative (Negative) Urine Ketones Negative (Negative) Urine Blood Negative (Negative) Urine Nitrite Negative (Negative) Urine Bilirubin Negative (Negative) Urine Urobilinogen <2.0 (<2.0) mg/dL Ur Leukocyte Esterase Negative (Negative) Coronavirus (PCR) (Not Detectd) 07/21/20 07/21/20 07/21/20 Range/Units 18:55 18:55 18:55 WBC (3.8-10.6) k/uL RBC (3.80-5.40) m/uL Hgb (11.4-16.0) gm/dL Hct (34.0-46.0) % MCV (80.0-100.0) fL MCH (25.0-35.0) pg MCHC (31.0-37.0) g/dL RDW (11.5-15.5) % Plt Count (150-450) k/uL MPV Neutrophils % % Lymphocytes % % Monocytes % % Eosinophils % % Basophils % % Neutrophils # (1.3-7.7) k/uL Lymphocytes # (1.0-4.8) k/uL Monocytes # (0-1.0) k/uL Eosinophils # (0-0.7) k/uL Basophils # (0-0.2) k/uL Hypochromasia Anisocytosis Microcytosis PT (9.0-12.0) sec INR (<1.2) APTT (22.0-30.0) sec D-Dimer (<0.60) mg/L FEU Sodium 139 (137-145) mmol/L Potassium 4.6 (3.5-5.1) mmol/L Chloride 103 (98-107) mmol/L Carbon Dioxide 28 (22-30) mmol/L Anion Gap 8 mmol/L BUN 33 H (7-17) mg/dL Creatinine 1.29 H (0.52-1.04) mg/dL Est GFR (CKD-EPI)AfAm 50 (>60 ml/min/1.73 sqM) Est GFR (CKD-EPI)NonAf 43 (>60 ml/min/1.73 sqM) Glucose 154 H (74-99) mg/dL Plasma Lactic Acid [place] 1.0 (0.7-2.0) mmol/L Calcium 8.2 L (8.4-10.2) mg/dL Total Bilirubin 0.3 (0.2-1.3) mg/dL AST 56 H (14-36) U/L ALT 32 (4-34) U/L Alkaline Phosphatase 73 (38-126) U/L NT-Pro-B Natriuret Pep pg/mL Total Protein 6.2 L (6.3-8.2) g/dL Albumin 3.2 L (3.5-5.0) g/dL Urine Color Urine Appearance (Clear) Urine pH (5.0-8.0) Ur Specific [place] (1.001-1.035) Urine Protein (Negative) Urine Glucose (UA) (Negative) Urine Ketones (Negative) Urine Blood (Negative) Urine Nitrite (Negative) Urine Bilirubin (Negative) Urine Urobilinogen (<2.0) mg/dL Ur Leukocyte Esterase (Negative) Coronavirus (PCR) Detected A (Not Detectd) 07/21/20 07/21/20 Range/Units 18:55 18:55 WBC (3.8-10.6) k/uL RBC (3.80-5.40) m/uL Hgb (11.4-16.0) gm/dL Hct (34.0-46.0) % MCV (80.0-100.0) fL MCH (25.0-35.0) pg MCHC (31.0-37.0) g/dL RDW (11.5-15.5) % Plt Count (150-450) k/uL MPV Neutrophils % % Lymphocytes % % Monocytes % % Eosinophils % % Basophils % % Neutrophils # (1.3-7.7) k/uL Lymphocytes # (1.0-4.8) k/uL Monocytes # (0-1.0) k/uL Eosinophils # (0-0.7) k/uL Basophils # (0-0.2) k/uL Hypochromasia Anisocytosis Microcytosis PT (9.0-12.0) sec INR (<1.2) APTT (22.0-30.0) sec D-Dimer 1.27 H (<0.60) mg/L FEU Sodium (137-145) mmol/L Potassium (3.5-5.1) mmol/L Chloride (98-107) mmol/L Carbon Dioxide (22-30) mmol/L Anion Gap mmol/L BUN (7-17) mg/dL Creatinine (0.52-1.04) mg/dL Est GFR (CKD-EPI)AfAm (>60 ml/min/1.73 sqM) Est GFR (CKD-EPI)NonAf (>60 ml/min/1.73 sqM) Glucose (74-99) mg/dL Plasma Lactic Acid [place] (0.7-2.0) mmol/L Calcium (8.4-10.2) mg/dL Total Bilirubin (0.2-1.3) mg/dL AST (14-36) U/L ALT (4-34) U/L Alkaline Phosphatase (38-126) U/L NT-Pro-B Natriuret Pep 115 pg/mL Total Protein (6.3-8.2) g/dL Albumin (3.5-5.0) g/dL Urine Color Urine Appearance (Clear) Urine pH (5.0-8.0) Ur Specific [place] (1.001-1.035) Urine Protein (Negative) Urine Glucose (UA) (Negative) Urine Ketones (Negative) Urine Blood (Negative) Urine Nitrite (Negative) Urine Bilirubin (Negative) Urine Urobilinogen (<2.0) mg/dL Ur Leukocyte Esterase (Negative) Coronavirus (PCR) (Not Detectd) - Radiology Data Radiology results: report reviewed, image reviewed Two-view x-ray of the chest is obtained. Report was reviewed in its entirety. Impression by Dr. Daniel shows infiltrate and atelectasis at the lung bases with probably some congestive heart failure. Heart failure is new compared to recent exam. Pulmonary infiltrates increased. Disposition Clinical Impression: Pneumonia due to COVID-19 virus, Hypoxia, Acute kidney injury Disposition: ADMITTED IP TO THIS [facility] Condition: Serious Referrals: Ponce Kothari MD [Primary Care Provider] - 1-2 days Decision to Admit Reason: Admit from EC Decision Date: 07/21/20 Decision Time: 21:10
[2020-07-21] MEDS ORDERED: dexAMETHasone 2 MG TAB PO STA (21:13)
[2020-07-21] MEDS ORDERED: ENOXAPARIN 40 MG/0.4 ML SYRINGE SQ STA (21:13)
[2020-07-21] MEDS ORDERED: NALOXONE 0.4 MG/ML 1 ML VIAL IV PRN (21:16)
[2020-07-21 21:32] LABS: C Reactive Protein 191.6 mg/L (<10.0)
[2020-07-21 22:20] LABS: Glucose,Whole Blood 203 mg/dL (75-99)
[2020-07-21] MEDS ORDERED: INSULIN ASPART (NovoLOG) 100 UNIT/ML VIAL SQ STA (22:29)
[2020-07-21] MEDS: ALBUTEROL HFA INHALER INHALATION SCH (23:56)
[2020-07-22 01:02] LABS: Glucose,Whole Blood 126 mg/dL (75-99)
[2020-07-22 03:05] LABS: Ferritin 100.9 ng/mL (10.0-291.0)
[2020-07-22 08:12] LABS: Glucose,Whole Blood 193 mg/dL (75-99)
[2020-07-22] MEDS: ENOXAPARIN 40 MG/0.4 ML SYRINGE SQ SCH (08:15)
[2020-07-22] MEDS: INSULIN ASPART (NovoLOG) 100 UNIT/ML VIAL SQ SCH ×4 (08:16→23:45)
[2020-07-22] MEDS: ALBUTEROL HFA INHALER INHALATION SCH ×5 (08:53→19:20)
[2020-07-22] MEDS ORDERED: dexAMETHasone 2 MG TAB PO SCH (09:00)
[2020-07-22] MEDS: ACETAMINOPHEN TAB 325 MG TAB PO PRN ×2 (10:51→16:13)
[2020-07-22] MEDS ORDERED: REMDESIVIR 200 MG in SODIUM CHLORIDE 0.9% 250 ML IVPB ONE (15:00)
[2020-07-22 15:29] LABS: Glucose,Whole Blood 231 mg/dL (75-99)
--- NOTE | 2020-07-22 16:40 | P.CNPUL ---
History of Present Illness Consult date: 07/22/20 Requesting physician: Demarco Hart Reason for consult: pneumonia Chief complaint: Cough and weakness History of present illness: This is a 65-year-old female with history of severe persistent asthma, cerebral immunoglobulin deficiency syndrome, chronic steroid dependence, degenerative joint disease, osteoporosis, medical debility tracheobronchomalacia, hypertension, type 2 diabetes, patient presented to the ER with 1 week history of shortness of breath. Patient saw Dr. Kothari few days ago with mostly symptoms of cough and shortness of breath, however she had no fever no chills. Patient was placed on Levaquin, and diagnosed as having possible left sided pneumonia. Patient continued to do poorly, she is developing more and more shortness of breath, had no fever, no chills, she did have some mild nausea, and her cough has been productive with yellow phlegm. Patient has been using her updraft treatment quite frequently at home, but not much improvement noted. Patient had no headache, no blurred vision, no dizziness, loss or loss of sensation of taste or smell, she had no GI symptoms except for nausea, no vomiting. Patient denied any urinary complaints. Chest x-ray on this admission showed extensive bilateral infiltrates, left more so than right. Patient tested positive for covid 19 pneumonitis. Hence the patient will be admitted to the intensive care unit. Patient was placed on BiPAP overnight, presently transitioned to a nasal cannula at 5 L/m, and O2 saturations 95%. Initially her O2 saturation when he percent on 5 L nasal cannula up on her initial prese ntation. And when I was notified about this patient last night, I recommended BiPAP CBC showed WBC count is 5.5, she had relative lymphopenia. But normal platelets. D-dimer was 1.27. LDH 937 C-reactive protein is 191.6. Review of Systems Constitutional: Weakness fatigue malaise and low-grade fever. HEENT: Minimal sinus congestion. No loss of smell or taste. Pulmonary: As noted in HPI. GI: Nausea no vomiting, no diarrhea. Genitourinary: Negative. Musculoskeletal: Negative. Skin: Negative. Hematologic: Negative. Endocrine: History of diabetes she has insulin pump. Psychiatric: Negative. Neurologic: Negative. Past Medical History Past Medical History: Asthma, COPD, Diabetes Mellitus, Eye Disorder, Fibromyalgia, GERD/Reflux, Hyperlipidemia, Hypertension, Musculoskeletal Disorder, Pneumonia, Respiratory Disorder, Skin Disorder Additional Past Medical History / Comment(s): Bronchial asthma, trac heobronchomalacia, common variable immunoglobulin deficiency. Chronic back problems. chronic steroid use, suspected component of adrenal insufficiency due to chronic steroid use. Hiatal hernia. 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 Pneumonia / In ICU in [place] after Back surgery - March 2019. Mycobacterium gordonae soft tissue infection. cataracts, glaucoma, fibromyalgia, chronic pain, compression fracture of the spine. History of Any Multi-Drug Resistant Organisms: MRSA Date of last positivie culture/infection: 2010 MDRO Source:: right hand Past Surgical History: Appendectomy, Back Surgery, Breast Surgery, Cholecystectomy, Tubal Ligation Additional Past Surgical History / Comment(s): MULT BRONCHS, WASHINGS, LAST 04/17/14. EXC OMA CATARACT. BLEPHAROPLASTY/ R&L BREAST BIOPSIES; PORT A CATH IN LEFT CHEST-CHANGED TO RT CHEST,EXC MYCOBACTERIUM AREAS RT ARM 2011; UPPER TEETH EXTRACTED. RT SALPINGECTOMY/FALLOPIAN TUBE REMOVED, I&D BOIL.[facility] MUSCLE SURGERY; - mouth (bone) surgery. Pain pump insertion to left buttocks - October 2016. Colonoscopy 2014. Hiatal hernia surgeries 2014&2015. Back surgery (Decompresssion) - February 2019 Past Anesthesia/Blood Transfusion Reactions: Motion Sickness, Postoperative Nausea & Vomiting (PONV) Past Psychological History: Anxiety, Depression Smoking Status: Former smoker Past Alcohol Use History: None Reported Past Drug Use History: None Reported - Past Family History Mother Family Medical History: Cancer Additional Family Medical History / Comment(s): BREAST CANCER. Father Additional Family Medical History / Comment(s): r/t suicide Medications and Allergies Home Medications Medication Instructions Recorded Confirmed Type Escitalopram [Lexapro] 30 mg PO QAM 01/01/14 07/21/20 History Spironolactone [Aldactone] 25 mg PO TID 01/01/14 07/21/20 History Potassium Chloride ER [K-Dur 20] 60 meq PO BID 11/06/14 07/21/20 History Amitriptyline HCl [Elavil] 30 mg PO HS 12/07/14 07/21/20 History traZODone HCL 75 mg PO HS 09/10/16 07/21/20 History Insulin Aspart (For Pump) [NovoLOG 0.01 unit SQ-PUMP CONTINUOUS 07/24/17 07/21/20 History (For Pump)] buPROPion XL [Wellbutrin XL] 450 mg PO DAILY 07/24/17 07/21/20 History Fluticasone/Salmeterol [Advair Hfa 2 puff INHALATION RT-BID 04/09/19 07/21/20 History 230-21 Mcg Inhaler] Pregabalin [Lyrica] 100 mg PO TID 04/09/19 07/21/20 History Montelukast [Singulair] 10 mg PO HS 08/01/19 07/21/20 History Nystatin 500,000 unit PO QID PRN 08/01/19 07/21/20 History Budesonide [Pulmicort] 0.5 mg INHALATION RT-BID 03/31/20 07/21/20 History Hydrocodone/Acetaminophen [[place] 1 tab PO Q6HR PRN 3 Days #10 tab 05/07/20 07/21/20 Rx 5-325] Levofloxacin [Levaquin] 750 mg PO DAILY 5 Days #5 tab 06/06/20 07/21/20 Rx ALPRAZolam [Xanax] 0.25 mg PO HS PRN 07/21/20 07/21/20 History ALPRAZolam [Xanax] 0.5 mg PO TID 07/21/20 07/21/20 History Albuterol Inhaler [Ventolin Hfa 2 puff INHALATION RT-QID PRN 07/21/20 07/21/20 History Inhaler] Ascorbic Acid [Vitamin C] 1,000 mg PO DAILY 07/21/20 07/21/20 History Cyclobenzaprine [Flexeril] 10 mg PO TID PRN 07/21/20 07/21/20 History Fluticasone Nasal [place] [Flonase 1 spray EA NOSTRIL DAILY 07/21/20 07/21/20 History Nasal [place]] Furosemide [Lasix] 20 mg PO BID 07/21/20 07/21/20 History Ipratropium-Albuterol Nebulize 3 ml INHALATION RT-TID PRN 07/21/20 07/21/20 History [Duoneb 0.5 mg-3 mg/3 ml Soln] Magnesium Oxide [Magox 400] 400 mg PO DAILY@1200 07/21/20 07/21/20 History Pantoprazole [Protonix] 40 mg PO DAILY 07/21/20 07/21/20 History Pravastatin Sodium [Pravachol] 10 mg PO HS 07/21/20 07/21/20 History Promethazine 6.25MG/5Ml [Phenergan 6.25 mg PO DIRECTED PRN 07/21/20 07/21/20 History Syrup] Ubidecarenone [Co Q-10] 200 mg PO DAILY@1200 07/21/20 07/21/20 History Vitamin B-Complex W/Vit C 1 tab PO DAILY 07/21/20 07/21/20 History busPIRone HCl [Buspar] 20 mg PO BID 07/21/20 07/21/20 History guaiFENesin [Mucinex] 600 mg PO BID PRN 07/21/20 07/21/20 History predniSONE 20 mg PO DAILY 07/21/20 07/21/20 History Allergies Allergy/AdvReac Type Severity Reaction Status Date / Time crisaborole [From Eucrisa] Allergy Rash/Hives Verified 07/21/20 20:14 indomethacin sodium Allergy severe Verified 07/21/20 20:14 [From Indocin] Confusion cefuroxime axetil AdvReac Severe Abdominal Verified 07/21/20 20:14 [From Ceftin] Pain ciprofloxacin HCl AdvReac Severe Abdominal Verified 07/21/20 20:14 [From Cipro] Pain erythromycin base AdvReac Unknown Abdominal Verified 07/21/20 20:14 [Erythromycin Base] Pain sulfamethoxazole AdvReac Unknown Abdominal Verified 07/21/20 20:14 [From Bactrim] Pain trimethoprim [From Bactrim] AdvReac Unknown Abdominal Verified 07/21/20 20:14 Pain NSAIDS (Non-Steroidal AdvReac Dyspnea Verified 07/21/20 20:14 Anti-Inflamma Penicillins AdvReac Nausea & Verified 07/21/20 20:14 Vomiting Sulfa (Sulfonamide AdvReac Abdominal Verified 07/21/20 20:14 Antibiotics) Pain Physical Exam Vitals: Vital Signs Temp Pulse Resp BP Pulse Ox 07/22/20 15:23 97.5 F L 74 24 116/75 95 07/22/20 13:31 24 95 07/22/20 13:30 89 L 07/22/20 13:05 97.5 F L 75 23 107/56 96 07/22/20 12:52 70 24 97 07/22/20 12:17 97.6 F 77 24 102/64 94 L 07/22/20 10:00 73 22 121/64 92 L 07/22/20 09:00 22 92 L 07/22/20 08:00 97.5 F L 80 22 128/69 92 L 07/22/20 06:11 58 L 17 105/61 94 L 07/22/20 05:14 72 18 127/68 94 L 07/22/20 04:40 58 L 20 100 07/22/20 01:58 97.5 F L 77 17 126/74 98 07/21/20 23:32 99 07/21/20 23:20 20 89 L 07/21/20 19:32 73 18 116/79 95 07/21/20 17:34 90 L 07/21/20 17:32 97.3 F L 81 22 113/58 74 L 07/21/20 17:31 98.2 F 76 20 121/66 96 General appearance: Revealed a 65-year-old female in no distress, on BiPAP Head: Atraumatic, normocephalic. ENT exam: normal exam, normal oropharynx, mucous membranes moist Respiratory exam: Symmetrical chest expansion, lateral expiratory rhonchi and wheezes noted Cardiovascular Exam: Normal S1 and S2, no S3 gallop. GI/Abdominal exam: Soft nontender no megaly no rebound no guarding. Neurological exam: Alert and oriented 3, no gross focal deficits. Psychiatric exam: Normal mood affect and normal mental status examination. Skin exam: warm, dry, intact, normal color. Absent: rash Results - Laboratory Findings CBC and BMP: 07/21/20 18:55 07/21/20 18:55 PT/INR, D-dimer PT 10.2 sec (9.0-12.0) 07/21/20 18:55 INR 1.0 (<1.2) 07/21/20 18:55 D-Dimer 1.27 mg/L FEU (<0.60) H 07/21/20 18:55 Abnormal lab findings: Abnormal Labs 07/21/20 07/21/20 07/21/20 18:55 18:55 18:55 Hgb 10.1 L Hct 32.4 L MCV 72.2 L MCH 22.4 L RDW 17.7 H Lymphocytes # 0.4 L D-Dimer BUN 33 H Creatinine 1.29 H Glucose 154 H POC Glucose (mg/dL) Calcium 8.2 L AST 56 H Lactate Dehydrogenase C-Reactive Protein Total Protein 6.2 L Albumin 3.2 L Coronavirus (PCR) Detected A 07/21/20 07/21/20 07/21/20 18:55 18:55 22:19 Hgb Hct MCV MCH RDW Lymphocytes # D-Dimer 1.27 H BUN Creatinine Glucose POC Glucose (mg/dL) 203 H Calcium AST Lactate Dehydrogenase 937 H C-Reactive Protein 191.6 H Total Protein Albumin Coronavirus (PCR) 07/22/20 07/22/20 07/22/20 01:01 08:10 15:27 Hgb Hct MCV MCH RDW Lymphocytes # D-Dimer BUN Creatinine Glucose POC Glucose (mg/dL) 126 H 193 H 231 H Calcium AST Lactate Dehydrogenase C-Reactive Protein Total Protein Albumin Coronavirus (PCR) - Diagnostic Findings Chest x-ray: image reviewed (As noted in HPI, chest x-ray is showing significant worsening compared to the chest x-ray she had in the office a few days ago. Bilateral infiltrates noted) Assessment and Plan Assessment: Impression: Acute hypoxic respiratory failure secondary to covid 19 pneumonitis Severe persistent asthma Tracheobronchomalacia Acquired variable immune deficiency syndrome. Chronic steroids use and dependence Previous history of atypical mycobacterial infection History of glaucoma. History of fibromyalgia. History of spine fracture. Type 2 diabetes presently on insulin pump Chronic pain syndrome Recommendation: Patient will be placed on the Covid 19 cocktail. We will arrange for the patient to be admitted to the ICU once a bed becomes available. Continue in the meantime high flow nasal cannula or intermittently BiPAP. High-dose steroids/Solu-Medrol will be given. remdesivir will be started. Would also consider convalescent plasma possibly tomorrow. Continue bronchodilators. Follow inflammatory markers. If pro calcitonin is elevated, consider adding empirically antibiotics. Patient has multiple morbidities, and she is considered to have likely high mortality/morbidity We'll continue to follow patient was seen in the ER Time with Patient: Greater than 30
[2020-07-22] MEDS: CHOLECALCIFEROL 1,000 UNIT TAB PO SCH (16:53)
[2020-07-22] MEDS: FAMOTIDINE 20 MG TAB PO SCH (16:53)
[2020-07-22] MEDS: methylPREDNISolone SOD SUCCI 40 MG/ML 1 ML VIAL IV SCH (16:54)
[2020-07-22] MEDS ORDERED: PROMETHAZINE HCL 6.25 MG/5 ML CUP PO PRN ×2 (18:41→19:27)
[2020-07-22] MEDS ORDERED: NYSTATIN 100,000 UNIT/ML SUSP 500,000 UNIT/5 ML CUP PO PRN (18:41)
[2020-07-22] MEDS ORDERED: ALPRAZolam 0.25 MG TAB PO PRN (18:41)
[2020-07-22] MEDS ORDERED: guaiFENesin 600 MG TABLET.ER PO PRN (18:41)
[2020-07-22 19:18] LABS: Glucose,Whole Blood 204 mg/dL (75-99)
[2020-07-22] MEDS: HYDROcodone/APAP 5-325MG 1 EACH TAB PO PRN (19:29)
[2020-07-22] MEDS: CYCLOBENZAPRINE 10 MG TAB PO PRN (19:29)
--- NOTE | 2020-07-22 19:46 | P.HPIM ---
History of Present Illness This is a pleasant 65 years old female with multiple medical problems including Asthma/COPD, diabetes mellitus, fibromyalgia, GERD, hypertension, hyperlipidemia, common variable immunoglobulin deficiency, chronic back pain, she is steroid dependent secondary to adrenal insufficiency, hiatal hernia, history of MRSA infection. Patient presents because of dyspnea of one week duration associated with coughing but no chest pain, she was recently diagnosed with possible pneumonia and she was treated with Levaquin with no much impro vement so she decided to come to the hospital Vital showing patient is afebrile, tachypneic at 24-25 and oxygen saturation 92% on 5 L oxygen CBC showing mild anemia of 10.1 with unremarkable rest of markers, d-dimer is slightly elevated at 1.7, high lactic dehydrogenase 937, high C-reactive protein at 191, Slightly increased creatinine 1.09, baseline creatinine is 0.8.: PCR test is detected EKG showing normal sinus rhythm at [address]-T changes and QTC is 429. ProBNP is 115 Chest x-ray: Pulmonary vascular congestion and pulmonary edema indicating some congestive heart failure with pulmonary infiltrates Review of Systems CONSTITUTIONAL: No fever, no malaise, no fatigue. HEENT: No recent visual problems or hearing problems. Denied any sore throat. CARDIOVASCULAR: No orthopnea, PND, no palpitations, no syncope. PULMONARY: No chest wall tenderness, no hemoptysis. GASTROINTESTINAL: No diarrhea, no nausea, no vomiting, no abdominal pain. Normoactive bowel sounds. NEUROLOGICAL: No headaches, no weakness, no numbness. HEMATOLOGICAL: Denies any bleeding or petechiae. GENITOURINARY: Denies any burning micturition, frequency, or urgency. MUSCULOSKELETAL/RHEUMATOLOGICAL: Denies any joint pain, swelling, or any muscle pain. ENDOCRINE: Denies any polyuria or polydipsia. Past Medical History Past Medical History: Asthma, COPD, Diabetes Mellitus, Eye Disorder, Fibromyalgia, GERD/Reflux, Hyperlipidemia, Hypertension, Musculoskeletal Disorder, Pneumonia, Respiratory Disorder, Skin Disorder Additional Past Medical History / Comment(s): Bronchial asthma, tracheobronc homalacia, common variable immunoglobulin deficiency. Chronic back problems. chronic steroid use, suspected component of adrenal insufficiency due to chronic steroid use. Hiatal hernia. 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 Pneumonia / In ICU in [place] after Back surgery - March 2019. Mycobacterium gordonae soft tissue infection. cataracts, glaucoma, fibromyalgia, chronic pain, compression fracture of the spine. History of Any Multi-Drug Resistant Organisms: MRSA Date of last positivie culture/infection: 2010 MDRO Source:: right hand Past Surgical History: Appendectomy, Back Surgery, Breast Surgery, Cholecystectomy, Tubal Ligation Additional Past Surgical History / Comment(s): MULT BRONCHS, WASHINGS, LAST 04/17/14. EXC OMA CATARACT. BLEPHAROPLASTY/ R&L BREAST BIOPSIES; PORT A CATH IN LEFT CHEST-CHANGED TO RT CHEST,EXC MYCOBACTERIUM AREAS RT ARM 2011; UPPER TEETH EXTRACTED. RT SALPINGECTOMY/FALLOPIAN TUBE REMOVED, I&D BOIL.[facility]; - mouth (bone) surgery. Pain pump insertion to left buttocks - October 2016. Colonoscopy 2014. Hiatal hernia surgeries 2014&2015. Back surgery (Decompresssion) - February 2019 Past Anesthesia/Blood Transfusion Reactions: Motion Sickness, Postoperative N ausea & Vomiting (PONV) Past Psychological History: Anxiety, Depression Smoking Status: Former smoker Past Alcohol Use History: None Reported Past Drug Use History: None Reported - Past Family History Mother Family Medical History: Cancer Additional Family Medical History / Comment(s): BREAST CANCER. Father Additional Family Medical History / Comment(s): r/t suicide Medications and Allergies Home Medications Medication Instructions Recorded Confirmed Type Escitalopram [Lexapro] 30 mg PO QAM 01/01/14 07/21/20 History Spironolactone [Aldactone] 25 mg PO TID 01/01/14 07/21/20 History Potassium Chloride ER [K-Dur 20] 60 meq PO BID 11/06/14 07/21/20 History Amitriptyline HCl [Elavil] 30 mg PO HS 12/07/14 07/21/20 History traZODone HCL 75 mg PO HS 09/10/16 07/21/20 History Insulin Aspart (For Pump) [NovoLOG 0.01 unit SQ-PUMP CONTINUOUS 07/24/17 07/21/20 History (For Pump)] buPROPion XL [Wellbutrin XL] 450 mg PO DAILY 07/24/17 07/21/20 History Fluticasone/Salmeterol [Advair Hfa 2 puff INHALATION RT-BID 04/09/19 07/21/20 History 230-21 Mcg Inhaler] Pregabalin [Lyrica] 100 mg PO TID 04/09/19 07/21/20 History Montelukast [Singulair] 10 mg PO HS 08/01/19 07/21/20 History Nystatin 500,000 unit PO QID PRN 08/01/19 07/21/20 History Budesonide [Pulmicort] 0.5 mg INHALATION RT-BID 03/31/20 07/21/20 History Hydrocodone/Acetaminophen [[place] 1 tab PO Q6HR PRN 3 Days #10 tab 05/07/20 07/21/20 Rx 5-325] Levofloxacin [Levaquin] 750 mg PO DAILY 5 Days #5 tab 06/06/20 07/21/20 Rx ALPRAZolam [Xanax] 0.25 mg PO HS PRN 07/21/20 07/21/20 History ALPRAZolam [Xanax] 0.5 mg PO TID 07/21/20 07/21/20 History Albuterol Inhaler [Ventolin Hfa 2 puff INHALATION RT-QID PRN 07/21/20 07/21/20 History Inhaler] Ascorbic Acid [Vitamin C] 1,000 mg PO DAILY 07/21/20 07/21/20 History Cyclobenzaprine [Flexeril] 10 mg PO TID PRN 07/21/20 07/21/20 History Fluticasone Nasal [place] [Flonase 1 spray EA NOSTRIL DAILY 07/21/20 07/21/20 History Nasal [place]] Furosemide [Lasix] 20 mg PO BID 07/21/20 07/21/20 History Ipratropium-Albuterol Nebulize 3 ml INHALATION RT-TID PRN 07/21/20 07/21/20 History [Duoneb 0.5 mg-3 mg/3 ml Soln] Magnesium Oxide [Magox 400] 400 mg PO DAILY@1200 07/21/20 07/21/20 History Pantoprazole [Protonix] 40 mg PO DAILY 07/21/20 07/21/20 History Pravastatin Sodium [Pravachol] 10 mg PO HS 07/21/20 07/21/20 History Promethazine 6.25MG/5Ml [Phenergan 6.25 mg PO DIRECTED PRN 07/21/20 07/21/20 History Syrup] Ubidecarenone [Co Q-10] 200 mg PO DAILY@1200 07/21/20 07/21/20 History Vitamin B-Complex W/Vit C 1 tab PO DAILY 07/21/20 07/21/20 History busPIRone HCl [Buspar] 20 mg PO BID 07/21/20 07/21/20 History guaiFENesin [Mucinex] 600 mg PO BID PRN 07/21/20 07/21/20 History predniSONE 20 mg PO DAILY 07/21/20 07/21/20 History Allergies Allergy/AdvReac Type Severity Reaction Status Date / Time crisaborole [From Eucrisa] Allergy Rash/Hives Verified 07/21/20 20:14 indomethacin sodium Allergy severe Verified 07/21/20 20:14 [From Indocin] Confusion cefuroxime axetil AdvReac Severe Abdominal Verified 07/21/20 20:14 [From Ceftin] Pain ciprofloxacin HCl AdvReac Severe Abdominal Verified 07/21/20 20:14 [From Cipro] Pain erythromycin base AdvReac Unknown Abdominal Verified 07/21/20 20:14 [Erythromycin Base] Pain sulfamethoxazole AdvReac Unknown Abdominal Verified 07/21/20 20:14 [From Bactrim] Pain trimethoprim [From Bactrim] AdvReac Unknown Abdominal Verified 07/21/20 20:14 Pain NSAIDS (Non-Steroidal AdvReac Dyspnea Verified 07/21/20 20:14 Anti-Inflamma Penicillins AdvReac Nausea & Verified 07/21/20 20:14 Vomiting Sulfa (Sulfonamide AdvReac Abdominal Verified 07/21/20 20:14 Antibiotics) Pain Physical Exam Vitals: Vital Signs Temp Pulse Resp BP Pulse Ox 07/22/20 10:00 73 22 121/64 92 L 07/22/20 09:00 22 92 L 07/22/20 08:00 97.5 F L 80 22 128/69 92 L 07/22/20 06:11 58 L 17 105/61 94 L 07/22/20 05:14 72 18 127/68 94 L 07/22/20 04:40 58 L 20 100 07/22/20 01:58 97.5 F L 77 17 126/74 98 07/21/20 23:32 99 07/21/20 23:20 20 89 L 07/21/20 19:32 73 18 116/79 95 07/21/20 17:34 90 L 07/21/20 17:32 97.3 F L 81 22 113/58 74 L 07/21/20 17:31 98.2 F 76 20 121/66 96 Intake and Output 07/21/20 07/22/20 07/22/20 22:59 06:59 14:59 Other: Weight 59.874 kg GENERAL: The patient is alert and oriented x3, not in any acute distress. Well developed, well nourished. HEENT: Pupils are round and equally reacting to light. EOMI. No scleral icterus. No conjunctival pallor. Normocephalic, atraumatic. No pharyngeal erythema. No th yromegaly. CARDIOVASCULAR: S1 and S2 present. No murmurs, rubs, or gallops. -PULMONARY: Chest is decreased air entry bilaterally with bilateral crepitation ABDOMEN: Soft, nontender, nondistended, normoactive bowel sounds. No palpable organomegaly. MUSCULOSKELETAL: No joint swelling or deformity. EXTREMITIES: No cyanosis, clubbing, or pedal edema. NEUROLOGICAL: Gross neurological examination did not reveal any focal deficits. SKIN: No rashes. No petechiae Results CBC & Chem 7: 07/21/20 18:55 07/21/20 18:55 Labs: Abnormal Lab Results - Last 24 Hours (Table) 07/21/20 07/21/20 07/21/20 Range/Units 18:55 18:55 18:55 Hgb 10.1 L (11.4-16.0) gm/dL Hct 32.4 L (34.0-46.0) % MCV 72.2 L (80.0-100.0) fL MCH 22.4 L (25.0-35.0) pg RDW 17.7 H (11.5-15.5) % Lymphocytes # 0.4 L (1.0-4.8) k/uL D-Dimer (<0.60) mg/L FEU BUN 33 H (7-17) mg/dL Creatinine 1.29 H (0.52-1.04) mg/dL Glucose 154 H (74-99) mg/dL POC Glucose (mg/dL) (75-99) mg/dL Calcium 8.2 L (8.4-10.2) mg/dL AST 56 H (14-36) U/L Lactate Dehydrogenase (313-618) U/L C-Reactive Protein (<10.0) mg/L Total Protein 6.2 L (6.3-8.2) g/dL Albumin 3.2 L (3.5-5.0) g/dL Coronavirus (PCR) Detected A (Not Detectd) 07/21/20 07/21/20 07/21/20 Range/Units 18:55 18:55 22:19 Hgb (11.4-16.0) gm/dL Hct (34.0-46.0) % MCV (80.0-100.0) fL MCH (25.0-35.0) pg RDW (11.5-15.5) % Lymphocytes # (1.0-4.8) k/uL D-Dimer 1.27 H (<0.60) mg/L FEU BUN (7-17) mg/dL Creatinine (0.52-1.04) mg/dL Glucose (74-99) mg/dL POC Glucose (mg/dL) 203 H (75-99) mg/dL Calcium (8.4-10.2) mg/dL AST (14-36) U/L Lactate Dehydrogenase 937 H (313-618) U/L C-Reactive Protein 191.6 H (<10.0) mg/L Total Protein (6.3-8.2) g/dL Albumin (3.5-5.0) g/dL Coronavirus (PCR) (Not Detectd) 07/22/20 07/22/20 Range/Units 01:01 08:10 Hgb (11.4-16.0) gm/dL Hct (34.0-46.0) % MCV (80.0-100.0) fL MCH (25.0-35.0) pg RDW (11.5-15.5) % Lymphocytes # (1.0-4.8) k/uL D-Dimer (<0.60) mg/L FEU BUN (7-17) mg/dL Creatinine (0.52-1.04) mg/dL Glucose (74-99) mg/dL POC Glucose (mg/dL) 126 H 193 H (75-99) mg/dL Calcium (8.4-10.2) mg/dL AST (14-36) U/L Lactate Dehydrogenase (313-618) U/L C-Reactive Protein (<10.0) mg/L Total Protein (6.3-8.2) g/dL Albumin (3.5-5.0) g/dL Coronavirus (PCR) (Not Detectd) Assessment and Plan Assessment: -Acute comment pneumonia, continue with steroids in the form of Solu- Medrol,remdesivir , vitamin C and ascorbic acid. Pulmonary critical care team/consult, Lovenox -Acute hypoxic respiratory failure secondary to above, continue with BiPAP as needed and oxygen as needed -Increased inflammatory markers secondary to cholelithiasis infection. -Mild acute kidney injury Diabetes mellitus Hypertension Hyperlipidemia History of common variable immunoglobulin deficiency History of asthma/COPD Chronic back pain History of arterial insufficiency on steroids depending Hiatal hernia History of MRSA DVT prophylaxis: Lovenox GI prophylaxis: Protonix Prognosis is guarded
[2020-07-22] MEDS: buPROPion XL 150 MG TAB.ER.24H PO SCH (20:21)
[2020-07-22 21:52] LABS: Glucose,Whole Blood 131 mg/dL (75-99)
[2020-07-22] MEDS: POTASSIUM CHLORIDE ER 20 MEQ TAB.ER PO SCH (23:35)
[2020-07-22] MEDS: PRAVASTATIN SODIUM 20 MG TAB PO SCH (23:35)
[2020-07-22] MEDS: busPIRone HCl 10 MG TAB PO SCH (23:36)
[2020-07-22] MEDS: AMITRIPTYLINE HCL 10 MG TAB PO SCH (23:37)
[2020-07-22] MEDS: ASCORBIC ACID 500 MG TAB PO SCH (23:37)
[2020-07-22] MEDS: FUROSEMIDE 20 MG TAB PO SCH (23:38)
[2020-07-22] MEDS: MONTELUKAST 10 MG TAB PO SCH (23:38)
[2020-07-22] MEDS: ALPRAZolam 0.5 MG TAB PO SCH (23:39)
[2020-07-22] MEDS: SPIRONOLACTONE 25 MG TAB PO SCH (23:39)
[2020-07-22] MEDS: PREGABALIN 100 MG CAP PO SCH (23:39)
[2020-07-22 23:46] LABS: Glucose,Whole Blood 114 mg/dL (75-99)
[2020-07-23] MEDS: methylPREDNISolone SOD SUCCI 40 MG/ML 1 ML VIAL IV SCH ×4 (00:26→23:21)
[2020-07-23] MEDS: traZODone HCL 50 MG TAB PO SCH ×2 (00:27→21:57)
[2020-07-23 06:16] LABS: Glucose,Whole Blood 173 mg/dL (75-99)
[2020-07-23] MEDS ORDERED: ARTIFICIAL TEARS OINTMENT 3.5 GM TUBE BOTH EYES PRN (07:09)
[2020-07-23 07:13] LABS: Glucose,Whole Blood 165 mg/dL (75-99)
[2020-07-23] MEDS: INSULIN ASPART (NovoLOG) 100 UNIT/ML VIAL SQ SCH ×4 (07:17→22:33)
[2020-07-23] MEDS: ALBUTEROL HFA INHALER INHALATION SCH ×4 (07:33→20:38)
--- NOTE | 2020-07-23 08:02 | XR ---
EXAMINATION TYPE: XR chest 1V portable DATE OF EXAM: 07/23/2020 HISTORY: Shortness of breath. COMPARISON: 07/21/2020 TECHNIQUE: Single view of the chest is submitted. FINDINGS: Demonstrated are scattered senescent parenchymal change. Patchy perihilar and basilar infiltrates persist although there may be mild improvement. The heart is stable. Hilar and mediastinal structures are within normal limits. Degenerative changes are seen of the dorsal spine. IMPRESSION: 1. Patchy perihilar and basilar infiltrates persist although there may be mild improvement.
[2020-07-23] MEDS: ALPRAZolam 0.5 MG TAB PO SCH ×3 (08:42→21:57)
[2020-07-23] MEDS: buPROPion XL 150 MG TAB.ER.24H PO SCH (08:43)
[2020-07-23] MEDS: busPIRone HCl 10 MG TAB PO SCH ×2 (08:43→21:57)
[2020-07-23] MEDS: ASCORBIC ACID 500 MG TAB PO SCH ×2 (08:43→21:57)
[2020-07-23] MEDS: FAMOTIDINE 20 MG TAB PO SCH (08:44)
[2020-07-23] MEDS: ESCITALOPRAM 10 MG TAB PO SCH (08:44)
[2020-07-23] MEDS: ENOXAPARIN 40 MG/0.4 ML SYRINGE SQ SCH (08:44)
[2020-07-23] MEDS: FUROSEMIDE 20 MG TAB PO SCH ×2 (08:44→21:57)
[2020-07-23] MEDS: CHOLECALCIFEROL 1,000 UNIT TAB PO SCH (08:44)
[2020-07-23] MEDS: POTASSIUM CHLORIDE ER 20 MEQ TAB.ER PO SCH ×2 (08:45→21:57)
[2020-07-23] MEDS: LEVOFLOXACIN 750 MG TAB PO SCH (08:45)
[2020-07-23] MEDS: SPIRONOLACTONE 25 MG TAB PO SCH ×3 (08:46→21:58)
[2020-07-23] MEDS: ZINC SULFATE 220 MG CAP PO SCH (08:46)
[2020-07-23] MEDS: PREGABALIN 100 MG CAP PO SCH ×3 (08:46→21:57)
[2020-07-23] MEDS: FLUTICASONE 50MCG/SPRAY NASAL 16GM EA NOSTRIL SCH (08:46)
[2020-07-23] MEDS ORDERED: PANTOPRAZOLE 40 MG/10 ML VIAL IVP SCH (09:00)
[2020-07-23] MEDS ORDERED: VITAMIN B COMPLEX PO SCH (09:00)
[2020-07-23] MEDS ORDERED: VIT C PO SCH (09:00)
[2020-07-23 09:08] LABS: Anisocytosis Slight; HGB 10.7 gm/dL (11.4-16.0); Hypochromasia Marked; MCHC 29.7 g/dL (31.0-37.0); MCV 74.1 fL (80.0-100.0); Mean Platelet Volume 9.3; Microcytosis Moderate; Platelet Count 196 k/uL (150-450); RBC 4.86 m/uL (3.80-5.40); RDW 17.6 % (11.5-15.5); WBC 4.4 k/uL (3.8-10.6)
[2020-07-23 09:15] LABS: African American GFR (CKD) >90 (>60 ml/min/1.73 sqM); Anion Gap 8 mmol/L; Blood Urea Nitrogen 23 mg/dL (7-17); Calcium 8.3 mg/dL (8.4-10.2); Carbon Dioxide 24 mmol/L (22-30); Chloride 107 mmol/L (98-107); Glucose 174 mg/dL (74-99); Non-African American GFR(CKD) 88 (>60 ml/min/1.73 sqM); Potassium 4.4 mmol/L (3.5-5.1); Sodium 139 mmol/L (137-145)
[2020-07-23] MEDS: HYDROcodone/APAP 5-325MG 1 EACH TAB PO PRN (11:20)
[2020-07-23] MEDS ORDERED: NON FORMULARY DRUG (Ubidecarenone [Co Q-10] 100 MG Capsule) PO SCH (12:00)
[2020-07-23 12:05] LABS: Glucose,Whole Blood 226 mg/dL (75-99)
[2020-07-23] MEDS: MAGNESIUM OXIDE 400 MG TAB PO SCH (13:00)
[2020-07-23] MEDS: REMDESIVIR 100 MG in SODIUM CHLORIDE 0.9% 250 ML IVPB SCH (15:10)
--- NOTE | 2020-07-23 15:52 | P.PN ---
Subjective Progress Note Date: 07/23/20 Principal diagnosis: Acute hypoxic respiratory failure secondary to Covid 19 pneumonitis This is a 65-year-old female with history of severe persistent asthma, cerebral immunoglobulin deficiency syndrome, chronic steroid dependence, degenerative joint disease, osteoporosis, medical debility tracheobronchomalacia, hypertension, type 2 diabetes, patient presented to the ER with 1 week history of shortness of breath. Patient saw Dr. Kothari few days ago with mostly symptoms of cough and shortness of breath, however she had no fever no chills. Patient was placed on Levaquin, and diagnosed as having possible left sided pneumonia. Patient continued to do poorly, she is developing more and more shortness of breath, had no fever, no chills, she did have some mild nausea, and her cough has been productive with yellow phlegm. Patient has been using her updraft treatment quite frequently at home, but not much improvement noted. Patient had no headache, no blurred vision, no dizziness, loss or loss of sensation of taste or smell, she had no GI symptoms except for nausea, no vomiting. Patient denied any urinary complaints. Chest x-ray on this admission showed extensive bilateral infiltrates, left more so than right. Patient tested positive for covid 19 pneumonitis. Hence the patient will be admitted to the intensive care unit. Patient was placed on BiPAP overnight, presently transitioned to a nasal cannula at 5 L/m, and O2 saturations 95%. Initially her O2 saturation when he percent on 5 L nasal cannula up on her initial presentation. And when I was notified about this patient last night, I recommended BiPAP CBC showed WBC count is 5.5, she had relative lymphopenia. But normal platelets. D-dimer was 1.27. LDH 937 C-reactive protein is 191.6. Patient was reevaluated today on 07/23/20, patient remains in the ICU, seems to be doing a bit better compared to yesterday. She is now on 4 L nasal cannula, off BiPAP which she required yesterday. And breathing a bit easier, but continues to cough, and continues to have shortness of breath. Chest x-ray continues to show patchy perihilar and basilar infiltrates, maybe slightly better compared to the chest x-ray yesterday. CBC is relatively normal basic metabolic profile is normal. Patient is receiving remdsivir, and may arrange for having a unit of convalescent plasma Objective - Vital Signs Vital signs: Vital Signs Temp 97.4 F L 07/23/20 15:13 Pulse 76 07/23/20 15:13 Resp 20 07/23/20 15:13 BP 118/70 07/23/20 15:13 Pulse Ox 92 L 07/23/20 15:00 Intake & Output 07/22/20 07/23/20 07/23/20 18:59 06:59 18:59 Intake Total 240 0 Output Total 1240 900 Balance -1000 -900 Weight 57.2 kg Intake: Oral 240 Blood Product 0 Ffp Pher Conval Covid19 0 Acda 3 Unit [id number] Output: Urine 1240 900 Other: Voiding Method Indwelling Catheter Indwelling Catheter - Exam General appearance: Revealed a 65-year-old female in no distress,on 4 L nasal cannula Head: Atraumatic, normocephalic. ENT exam: normal exam, normal oropharynx, mucous membranes moist Respiratory exam: Symmetrical chest expansion, lateral expiratory rhonchi and wheezes noted Cardiovascular Exam: Normal S1 and S2, no S3 gallop. GI/Abdominal exam: Soft nontender no megaly no rebound no guarding. Neurological exam: Alert and oriented 3, no gross focal deficits. Psychiatric exam: Normal mood affect and normal mental status examination. Skin exam: warm, dry, intact, normal color. Absent: rash - Labs CBC & Chem 7: 07/23/20 08:45 07/23/20 08:45 Labs: Abnormal Lab Results - Last 24 Hours (Table) 07/22/20 07/22/20 07/22/20 Range/Units 19:17 21:51 23:44 Hgb (11.4-16.0) gm/dL MCV (80.0-100.0) fL MCH (25.0-35.0) pg MCHC (31.0-37.0) g/dL RDW (11.5-15.5) % BUN (7-17) mg/dL Glucose (74-99) mg/dL POC Glucose (mg/dL) 204 H 131 H 114 H (75-99) mg/dL Calcium (8.4-10.2) mg/dL 07/23/20 07/23/20 07/23/20 Range/Units 06:14 07:12 08:45 Hgb 10.7 L (11.4-16.0) gm/dL MCV 74.1 L (80.0-100.0) fL MCH 22.0 L (25.0-35.0) pg MCHC 29.7 L (31.0-37.0) g/dL RDW 17.6 H (11.5-15.5) % BUN (7-17) mg/dL Glucose (74-99) mg/dL POC Glucose (mg/dL) 173 H 165 H (75-99) mg/dL Calcium (8.4-10.2) mg/dL 07/23/20 07/23/20 Range/Units 08:45 12:04 Hgb (11.4-16.0) gm/dL MCV (80.0-100.0) fL MCH (25.0-35.0) pg MCHC (31.0-37.0) g/dL RDW (11.5-15.5) % BUN 23 H (7-17) mg/dL Glucose 174 H (74-99) mg/dL POC Glucose (mg/dL) 226 H (75-99) mg/dL Calcium 8.3 L (8.4-10.2) mg/dL Microbiology - Last 24 Hours (Table) 07/21/20 19:12 Blood Culture - Preliminary Blood No Growth after 24 hours Assessment and Plan Assessment: Impression: Acute hypoxic respiratory failure secondary to covid 19 pneumonitis Severe persistent asthma Tracheobronchomalacia common variable immune deficiency syndrome Chronic steroids use and dependence Previous history of atypical mycobacterial infection History of glaucoma. History of fibromyalgia. History of spine fracture. Type 2 diabetes presently on insulin pump Chronic pain syndrome Recommendation: Continue the Covid 19 cocktail. Continue to monitor in the ICU for the next 24 hours may consider testing the patient out of the ICU depending on clinical status in the next 24 hours. Titrate FiO2 accordingly. Continue Solu-Medrol. remdesivir , to be continued. convalescent plasma Continue bronchodilators. Continue Levaquin empirically. Follow inflammatory markers. Patient has multiple morbidities, and she is considered to have likely high mortality/morbidity We'll continue to follow Time with Patient: Less than 30
[2020-07-23 16:54] LABS: Glucose,Whole Blood 264 mg/dL (75-99)
[2020-07-23 20:44] LABS: Glucose,Whole Blood 160 mg/dL (75-99)
--- NOTE | 2020-07-23 21:23 | P.PN ---
Subjective This is a 65-year-old female with history of severe persistent asthma, cerebral immunoglobulin deficiency syndrome, chronic steroid dependence, degenerative joint disease, osteoporosis, medical debility tracheobronchomalacia, hypertension, type 2 diabetes, patient presented to the ER with 1 week history of shortness of breath. Patient saw Dr. Kothari few days ago with mostly symptoms of cough and shortness of breath, however she had no fever no chills. Patient was placed on Levaquin, and diagnosed as having possible left sided pneumonia. Patient continued to do poorly, she is developing more and more shortness of breath, had no fever, no chills, she did have some mild nausea, and her cough has been productive with yellow phlegm. Patient has been using her updraft treatment quite frequently at home, but not much improvement noted. Patient had no headache, no blurred vision, no dizziness, loss or loss of sensation of taste or smell, she had no GI symptoms except for nausea, no vomiting. Patient denied any urinary complaints. Chest x-ray on this admission showed extensive bilateral infiltrates, left more so than right. Patient tested positive for covid 19 pneumonitis. Hence the patient will be admitted to the intensive care unit. Patient was placed on BiPAP overnight, presently transitioned to a nasal cannula at 5 L/m, and O2 saturations 95%. Initially her O2 saturation when he percent on 5 L nasal cannula up on her initial presentation. And when I was notified about this patient last night, I recommended BiPAP CBC showed WBC count is 5.5, she had relative lymphopenia. But normal platelets. D-dimer was 1.27. LDH 937 C-reactive protein is 191.6. Patient was reevaluated today on 07/23/20, patient remains in the ICU, seems to be doing a bit better compared to yesterday. She is now on 4 L nasal cannula, off BiPAP which she required yesterday. And breathing a bit easier, but continues to cough, and continues to have shortness of breath. Chest x-ray continues to show patchy perihilar and basilar infiltrates, maybe slightly better compared to the chest x-ray yesterday. CBC is relatively normal basic metabolic profile is normal. Patient is receiving remdsivir, and may arrange for having a unit of convalescent plasma 07/23/20 Vision remains in critical condition in the ICU, she's been admitted for Covid pneumonia and severe asthma with acute hypoxic respiratory failure, she's been followed closely by pulmonary/critical care team,She still needs 4 L of oxygen to keep her saturating at 93% was shortness of breath and dyspnea Patient is being treated with Levaquin empirically, Solu-Medrol to help her asthma attack and remdesivir . As well as vitamin C and zinc CONSTITUTIONAL: No fever, no malaise, no fatigue. HEENT: No recent visual problems or hearing problems. Denied any sore throat. CARDIOVASCULAR: No orthopnea, PND, no palpitations, no syncope. PULMONARY: No chest wall tenderness, no hemoptysis. GASTROINTESTINAL: No diarrhea, no nausea, no vomiting, no abdominal pain. N ormoactive bowel sounds. NEUROLOGICAL: No headaches, no weakness, no numbness. Active Medications Generic Name Dose Route Start Last Admin Trade Name Freq PRN Reason Stop Dose Admin Acetaminophen 650 mg 07/21/20 21:16 07/22/20 16:13 Acetaminophen Tab 325 Mg Tab PO 650 mg Q6HR PRN Administration Mild Pain or Fever > 100.5 Hydrocodone Bitart/Acetaminophen 1 each 07/22/20 18:41 07/23/20 11:20 Hydrocodone/Apap 5-325mg 1 Each Tab PO 1 each Q6HR PRN Administration Pain Albuterol Sulfate 2 puff 07/23/20 08:00 07/23/20 20:38 Albuterol Hfa Inhaler INHALATION 2 puff RT-QID DIO Administration Alprazolam 0.5 mg 07/22/20 22:00 07/23/20 16:47 Alprazolam 0.5 Mg Tab PO 0.5 mg TID DIO Administration Alprazolam 0.25 mg 07/22/20 18:41 Alprazolam 0.25 Mg Tab PO HS PRN Anxiety Amitriptyline HCl 30 mg 07/22/20 21:00 07/22/20 23:37 Amitriptyline Hcl 10 Mg Tab PO 30 mg HS DIO Administration Ascorbic Acid 500 mg 07/22/20 21:00 07/23/20 08:43 Ascorbic Acid 500 Mg Tab PO 500 mg BID DIO Administration Bupropion HCl 450 mg 07/22/20 18:45 07/23/20 08:43 Bupropion Xl 150 Mg Tab.Er.24h PO 450 mg DAILY DIO Administration Buspirone HCl 20 mg 07/22/20 21:00 07/23/20 08:43 Buspirone Hcl 10 Mg Tab PO 20 mg BID DIO Administration Cholecalciferol 2,000 unit 07/22/20 16:45 07/23/20 08:44 Cholecalciferol 1,000 Unit Tab PO 2,000 unit DAILY DIO Administration Cyclobenzaprine HCl 10 mg 07/22/20 18:41 07/22/20 19:29 Cyclobenzaprine 10 Mg Tab PO 10 mg TID PRN Administration Muscle Pain Enoxaparin Sodium 40 mg 07/22/20 09:00 07/23/20 08:44 Enoxaparin 40 Mg/0.4 Ml Syringe SQ 40 mg DAILY DIO Administration Escitalopram Oxalate 30 mg 07/23/20 09:00 07/23/20 08:44 Escitalopram 10 Mg Tab PO 30 mg QAM DIO Administration Famotidine 20 mg 07/22/20 16:45 07/23/20 08:44 Famotidine 20 Mg Tab PO 20 mg DAILY DIO Administration Fluticasone Propionate 1 spray 07/23/20 09:00 07/23/20 08:46 Fluticasone 50mcg/[place] Nasal 16gm EA NOSTRIL 1 spray DAILY DIO Administration Furosemide 20 mg 07/22/20 21:00 07/23/20 08:44 Furosemide 20 Mg Tab PO 20 mg BID DOI Administration Guaifenesin 600 mg 07/22/20 18:41 Guaifenesin 600 Mg Tablet.Er PO BID PRN Congestion Remdesivir 100 mg/ Sodium 250 mls @ 250 mls/hr 07/23/20 15:00 07/23/20 15:10 Chloride IVPB 07/26/20 15:59 250 mls/hr DAILY@1500 [facility] Administration Insulin Aspart 0 unit 07/22/20 07:30 07/23/20 17:39 Insulin Aspart (Novolog) 100 Unit/Ml Vial SQ 7 unit ACHS DIO Administration Protocol Levofloxacin 750 mg 07/23/20 09:00 07/23/20 08:45 Levofloxacin 750 Mg Tab PO 750 mg DAILY DIO Administration Magnesium Oxide 400 mg 07/23/20 12:00 07/23/20 13:00 Magnesium Oxide 400 Mg Tab PO 400 mg DAILY@1200 DIO Administration Methylprednisolone Sodium Succinate 40 mg 07/22/20 16:45 07/23/20 17:39 Methylprednisolone Sod Succi 40 Mg/Ml 1 Ml Vial IV 40 mg Q8HR DIO Administration Montelukast Sodium 10 mg 07/22/20 21:00 07/22/20 23:38 Montelukast 10 Mg Tab PO 10 mg HS DIO Administration Multi-Ingred Cream/Lotion/Oil/Oint 1 applic 07/23/20 07:09 Artificial Tears Ointment 3.5 Gm Tube BOTH EYES QID PRN Dry Eye(s) Naloxone HCl 0.2 mg 07/21/20 21:16 Naloxone 0.4 Mg/Ml 1 Ml Vial IV Q2M PRN Opioid Reversal Nystatin 500,000 unit 07/22/20 18:41 Nystatin 100,000 Unit/Ml Susp 500,000 Unit/5 Ml Cup PO QID PRN THRUSH Pantoprazole Sodium 40 mg 07/24/20 07:30 Pantoprazole 40 Mg Tablet PO AC-BRKFST [facility] Potassium Chloride 60 meq 07/22/20 21:00 07/23/20 08:45 Potassium Chloride Er 20 Meq Tab.Er PO 60 meq BID DIO Administration Pravastatin Sodium 10 mg 07/22/20 21:00 07/22/20 23:35 Pravastatin Sodium 20 Mg Tab PO 10 mg HS DIO Administration Pregabalin 100 mg 07/22/20 22:00 07/23/20 16:47 Pregabalin 100 Mg Cap PO 100 mg TID DIO Administration Promethazine HCl 6.25 mg 07/22/20 19:27 Promethazine Hcl 6.25 Mg/5 Ml Cup PO Q4H PRN Cough Spironolactone 25 mg 07/22/20 22:00 07/23/20 16:47 Spironolactone 25 Mg Tab PO 25 mg TID DIO Administration Trazodone HCl 75 mg 07/22/20 21:00 07/23/20 00:27 Trazodone Hcl 50 Mg Tab PO 75 mg HS DIO Administration Zinc Sulfate 220 mg 07/23/20 09:00 07/23/20 08:46 Zinc Sulfate 220 Mg Cap PO 220 mg DAILY DIO Administration Objective - Vital Signs Vital signs: Vital Signs Temp 97.5 F L 07/23/20 08:00 Pulse 83 07/23/20 11:00 Resp 21 07/23/20 11:00 BP 128/64 07/23/20 11:00 Pulse Ox 92 L 07/23/20 11:00 Intake & Output 07/22/20 07/23/20 07/23/20 18:59 06:59 18:59 Intake Total 240 Output Total 1240 440 Balance -1000 -440 Weight 57.2 kg Intake: Oral 240 Output: Urine 1240 440 Other: Voiding Method Indwelling Catheter - Exam GENERAL: The patient is alert and oriented x3, not in any acute distress. Well developed, well nourished. HEENT: Pupils are round and equally reacting to light. EOMI. No scleral icterus. No conjunctival pallor. Normocephalic, atraumatic. No pharyngeal erythema. No thyromegaly. CARDIOVASCULAR: S1 and S2 present. No murmurs, rubs, or gallops. -PULMONARY: Chest is clear to auscultation, no wheezing bilateral scattered crepitation ABDOMEN: Soft, nontender, nondistended, normoactive bowel sounds. No palpable organomegaly. MUSCULOSKELETAL: No joint swelling or deformity. EXTREMITIES: No cyanosis, clubbing, or pedal edema. NEUROLOGICAL: Gross neurological examination did not reveal any focal deficits. SKIN: No rashes. no petechiae. - Labs CBC & Chem 7: 07/23/20 08:45 07/23/20 08:45 Labs: Abnormal Lab Results - Last 24 Hours (Table) 07/22/20 07/22/20 07/22/20 Range/Units 15:27 19:17 21:51 Hgb (11.4-16.0) gm/dL MCV (80.0-100.0) fL MCH (25.0-35.0) pg MCHC (31.0-37.0) g/dL RDW (11.5-15.5) % BUN (7-17) mg/dL Glucose (74-99) mg/dL POC Glucose (mg/dL) 231 H 204 H 131 H (75-99) mg/dL Calcium (8.4-10.2) mg/dL 07/22/20 07/23/20 07/23/20 Range/Units 23:44 06:14 07:12 Hgb (11.4-16.0) gm/dL MCV (80.0-100.0) fL MCH (25.0-35.0) pg MCHC (31.0-37.0) g/dL RDW (11.5-15.5) % BUN (7-17) mg/dL Glucose (74-99) mg/dL POC Glucose (mg/dL) 114 H 173 H 165 H (75-99) mg/dL Calcium (8.4-10.2) mg/dL 07/23/20 07/23/20 Range/Units 08:45 08:45 Hgb 10.7 L (11.4-16.0) gm/dL MCV 74.1 L (80.0-100.0) fL MCH 22.0 L (25.0-35.0) pg MCHC 29.7 L (31.0-37.0) g/dL RDW 17.6 H (11.5-15.5) % BUN 23 H (7-17) mg/dL Glucose 174 H (74-99) mg/dL POC Glucose (mg/dL) (75-99) mg/dL Calcium 8.3 L (8.4-10.2) mg/dL Microbiology - Last 24 Hours (Table) 07/21/20 19:12 Blood Culture - Preliminary Blood No Growth after 24 hours Assessment and Plan Assessment: -Acute comment pneumonia, continue with steroids in the form of Solu- Medrol,remdesivir , vitamin C and ascorbic acid. Pulmonary critical care team/consult, Lovenox -Acute hypoxic respiratory failure secondary to above, continue with BiPAP as needed and oxygen as needed -Increased inflammatory markers secondary to cholelithiasis infection. -Mild acute kidney injury Diabetes mellitus Hypertension Hyperlipidemia History of common variable immunoglobulin deficiency History of asthma/COPD Chronic back pain History of arterial insufficiency on steroids depending Hiatal hernia History of MRSA DVT prophylaxis: Lovenox GI prophylaxis: Protonix Prognosis is guarded
[2020-07-23] MEDS: AMITRIPTYLINE HCL 10 MG TAB PO SCH (21:56)
[2020-07-23] MEDS: PRAVASTATIN SODIUM 20 MG TAB PO SCH (21:56)
[2020-07-23] MEDS: MONTELUKAST 10 MG TAB PO SCH (21:58)
[2020-07-23 22:09] LABS: Glucose,Whole Blood 138 mg/dL (75-99)
[2020-07-24 06:07] LABS: Anisocytosis Slight; HCT 31.2 % (34.0-46.0); HGB 9.9 gm/dL (11.4-16.0); Hypochromasia Moderate; MCH 23.1 pg (25.0-35.0); MCHC 31.8 g/dL (31.0-37.0); MCV 72.6 fL (80.0-100.0); Mean Platelet Volume 9.6; Microcytosis Moderate; Platelet Count 196 k/uL (150-450); RDW 17.8 % (11.5-15.5); WBC 6.4 k/uL (3.8-10.6)
[2020-07-24 06:28] LABS: Calcium 8.5 mg/dL (8.4-10.2); Magnesium 2.5 mg/dL (1.6-2.3); Potassium 5.3 mmol/L (3.5-5.1)
--- NOTE | 2020-07-24 06:31 | XR ---
EXAMINATION TYPE: XR chest 1V portable DATE OF EXAM: 07/24/2020 CLINICAL HISTORY: Difficulty breathing pneumonia,covid progress study. TECHNIQUE: Single AP portable semiupright view of the chest is obtained. COMPARISON: Chest x-ray from one day earlier and older studies. FINDINGS: Right internal jugular Mediport catheter now redemonstrated. There is background chronic p arenchymal change and elevated left hemidiaphragm with persistent left greater than right bibasilar o pacities. The cardiac silhouette size is stable and within normal limits with atherosclerotic change aortic knob. Osseous structures are intact. IMPRESSION: Chronic parenchymal changes with left greater than right bibasilar acute atelectasis and/ or infiltrate redemonstrated. Improved perihilar edema and/or infiltrates noted.
[2020-07-24 06:55] LABS: Glucose,Whole Blood 217 mg/dL (75-99)
[2020-07-24] MEDS: HYDROcodone/APAP 5-325MG 1 EACH TAB PO PRN ×3 (06:59→17:15)
[2020-07-24] MEDS: INSULIN ASPART (NovoLOG) 100 UNIT/ML VIAL SQ SCH ×4 (06:59→21:16)
[2020-07-24] MEDS: PANTOPRAZOLE 40 MG TABLET PO SCH (06:59)
[2020-07-24] MEDS: ALBUTEROL HFA INHALER INHALATION SCH ×4 (08:11→21:02)
[2020-07-24] MEDS: buPROPion XL 150 MG TAB.ER.24H PO SCH (08:23)
[2020-07-24] MEDS: FUROSEMIDE 20 MG TAB PO SCH ×2 (08:23→21:17)
[2020-07-24] MEDS: ENOXAPARIN 40 MG/0.4 ML SYRINGE SQ SCH (08:23)
[2020-07-24] MEDS: FAMOTIDINE 20 MG TAB PO SCH (08:23)
[2020-07-24] MEDS: PREGABALIN 100 MG CAP PO SCH ×3 (08:23→21:17)
[2020-07-24] MEDS: ALPRAZolam 0.5 MG TAB PO SCH ×3 (08:23→21:16)
[2020-07-24] MEDS: methylPREDNISolone SOD SUCCI 40 MG/ML 1 ML VIAL IV SCH ×2 (08:23→15:27)
[2020-07-24] MEDS: LEVOFLOXACIN 750 MG TAB PO SCH (08:24)
[2020-07-24] MEDS: ESCITALOPRAM 10 MG TAB PO SCH (08:24)
[2020-07-24] MEDS: busPIRone HCl 10 MG TAB PO SCH ×2 (08:25→21:16)
[2020-07-24] MEDS: CHOLECALCIFEROL 1,000 UNIT TAB PO SCH (08:25)
[2020-07-24] MEDS: ASCORBIC ACID 500 MG TAB PO SCH ×2 (08:27→21:17)
[2020-07-24] MEDS: POTASSIUM CHLORIDE ER 20 MEQ TAB.ER PO SCH ×2 (08:27→21:19)
[2020-07-24] MEDS: FLUTICASONE 50MCG/SPRAY NASAL 16GM EA NOSTRIL SCH (10:46)
[2020-07-24] MEDS: ZINC SULFATE 220 MG CAP PO SCH (10:53)
[2020-07-24] MEDS: SPIRONOLACTONE 25 MG TAB PO SCH ×3 (10:53→21:16)
[2020-07-24 11:59] LABS: Glucose,Whole Blood 217 mg/dL (75-99)
[2020-07-24] MEDS: MAGNESIUM OXIDE 400 MG TAB PO SCH (12:34)
--- NOTE | 2020-07-24 14:35 | P.PN ---
Subjective Progress Note Date: 07/24/20 Principal diagnosis: Acute hypoxic respiratory failure secondary to Covid 19 pneumonitis This is a 65-year-old female with history of severe persistent asthma, cerebral immunoglobulin deficiency syndrome, chronic steroid dependence, degenerative joint disease, osteoporosis, medical debility tracheobronchomalacia, hypertension, type 2 diabetes, patient presented to the ER with 1 week history of shortness of breath. Patient saw Dr. Kothari few days ago with mostly symptoms of cough and shortness of breath, however she had no fever no chills. Patient was placed on Levaquin, and diagnosed as having possible left sided pneumonia. Patient continued to do poorly, she is developing more and more shortness of breath, had no fever, no chills, she did have some mild nausea, and her cough has been productive with yellow phlegm. Patient has been using her updraft treatment quite frequently at home, but not much improvement noted. Patient had no headache, no blurred vision, no dizziness, loss or loss of sensation of taste or smell, she had no GI symptoms except for nausea, no vomiting. Patient denied any urinary complaints. Chest x-ray on this admission showed extensive bilateral infiltrates, left more so than right. Patient tested positive for covid 19 pneumonitis. Hence the patient will be admitted to the intensive care unit. Patient was placed on BiPAP overnight, presently transitioned to a nasal cannula at 5 L/m, and O2 saturations 95%. Initially her O2 saturation when he percent on 5 L nasal cannula up on her initial presentation. And when I was notified about this patient last night, I recommended BiPAP CBC showed WBC count is 5.5, she had relative lymphopenia. But normal platelets. D-dimer was 1.27. LDH 937 C-reactive protein is 191.6. Patient was reevaluated today on 07/23/20, patient remains in the ICU, seems to be doing a bit better compared to yesterday. She is now on 4 L nasal cannula, off BiPAP which she required yesterday. And breathing a bit easier, but continues to cough, and continues to have shortness of breath. Chest x-ray continues to show patchy perihilar and basilar infiltrates, maybe slightly better compared to the chest x-ray yesterday. CBC is relatively normal basic metabolic profile is normal. Patient is receiving remdsivir, and may arrange for having a unit of convalescent plasma Reevaluated today on 07/24/20, remains in the ICU, patient is on 4 L nasal cannula, she is on remdesivir, patient received 1 unit of convalescent plasma, seems to be doing well today, breathing easier, she is only on 4 L nasal cannula relatively normal CBC noted today, relatively normal electrolytes and normal renal profile. Chest x-ray continues to show by basilar infiltrates. And slight improvement in the perihilar interstitial edema/infiltrates noted Objective - Vital Signs Vital signs: Vital Signs Temp 98.1 F 07/24/20 12:00 Pulse 74 07/24/20 14:00 Resp 16 07/24/20 14:00 BP 100/71 07/24/20 14:00 Pulse Ox 96 07/24/20 14:00 Intake & Output 07/23/20 07/24/20 07/24/20 18:59 06:59 18:59 Intake Total 463 360 100 Output Total 1120 1250 815 Balance -657 -890 -715 Weight 57 kg Intake: IV 250 Remdesivir (Eua) 100 mg 250 In Sodium Chloride 0.9% 250 ml @ 250 mls/hr IVPB DAILY@1500 [facility] Rx#: [id number] Oral 360 100 Blood Product 213 Ffp Pher Conval Covid19 213 Acda 3 Unit [id number] Output: Urine 1120 1250 815 Other: Voiding Method Indwelling Catheter Indwelling Catheter Indwelling Catheter - Exam General appearance: Revealed a 65-year-old female in no distress,on 4 L nasal cannula Head: Atraumatic, normocephalic. ENT exam: normal exam, normal oropharynx, mucous membranes moist Respiratory exam: Symmetrical chest expansion, minimal crackles at the bases. Cardiovascular Exam: Normal S1 and S2, no S3 gallop. GI/Abdominal exam: Soft nontender no megaly no rebound no guarding. Neurological exam: Alert and oriented 3, no gross focal deficits. Psychiatric exam: Normal mood affect and normal mental status examination. Skin exam: warm, dry, intact, normal color. Absent: rash - Labs CBC & Chem 7: 07/24/20 04:56 07/24/20 04:56 Labs: Abnormal Lab Results - Last 24 Hours (Table) 07/23/20 07/23/20 07/23/20 Range/Units 16:48 20:42 22:07 Hgb (11.4-16.0) gm/dL Hct (34.0-46.0) % MCV (80.0-100.0) fL MCH (25.0-35.0) pg RDW (11.5-15.5) % Potassium (3.5-5.1) mmol/L Chloride (98-107) mmol/L BUN (7-17) mg/dL Glucose (74-99) mg/dL POC Glucose (mg/dL) 264 H 160 H 138 H (75-99) mg/dL Magnesium (1.6-2.3) mg/dL 07/24/20 07/24/20 07/24/20 Range/Units 04:56 04:56 06:54 Hgb 9.9 L (11.4-16.0) gm/dL Hct 31.2 L (34.0-46.0) % MCV 72.6 L (80.0-100.0) fL MCH 23.1 L (25.0-35.0) pg RDW 17.8 H (11.5-15.5) % Potassium 5.3 H (3.5-5.1) mmol/L Chloride 110 H (98-107) mmol/L BUN 29 H (7-17) mg/dL Glucose 208 H (74-99) mg/dL POC Glucose (mg/dL) 217 H (75-99) mg/dL Magnesium 2.5 H (1.6-2.3) mg/dL 07/24/20 Range/Units 11:57 Hgb (11.4-16.0) gm/dL Hct (34.0-46.0) % MCV (80.0-100.0) fL MCH (25.0-35.0) pg RDW (11.5-15.5) % Potassium (3.5-5.1) mmol/L Chloride (98-107) mmol/L BUN (7-17) mg/dL Glucose (74-99) mg/dL POC Glucose (mg/dL) 217 H (75-99) mg/dL Magnesium (1.6-2.3) mg/dL Microbiology - Last 24 Hours (Table) 07/21/20 19:12 Blood Culture - Preliminary Blood No Growth after 48 hours Assessment and Plan Assessment: Impression: Acute hypoxic respiratory failure secondary to covid 19 pneumonitis Severe persistent asthma Tracheobronchomalacia common variable immune deficiency syndrome Chronic steroids use and dependence Previous history of atypical mycobacterial infection History of glaucoma. History of fibromyalgia. History of spine fracture. Type 2 diabetes presently on insulin pump Chronic pain syndrome Recommendation: Continue the Covid 19 cocktail. Transfer patient to a regular medical floor today. Continue to titrate FiO2 and possibly go down to a lower level as long as O2 saturation remains above 90%. Continue Solu-Medrol. remdesivir , to be continued. convalescent plasma , received 1 dose. Continue bronchodilators. Continue Levaquin empirically. Follow inflammatory markers. We'll continue to follow Time with Patient: Less than 30
[2020-07-24] MEDS: REMDESIVIR 100 MG in SODIUM CHLORIDE 0.9% 250 ML IVPB SCH (15:25)
[2020-07-24 17:21] LABS: Glucose,Whole Blood 216 mg/dL (75-99)
[2020-07-24 20:41] LABS: Glucose,Whole Blood 209 mg/dL (75-99)
[2020-07-24] MEDS: PRAVASTATIN SODIUM 20 MG TAB PO SCH (21:16)
[2020-07-24] MEDS: AMITRIPTYLINE HCL 10 MG TAB PO SCH (21:17)
[2020-07-24] MEDS: MONTELUKAST 10 MG TAB PO SCH (21:17)
[2020-07-24] MEDS: traZODone HCL 50 MG TAB PO SCH (21:18)
[2020-07-25] MEDS: methylPREDNISolone SOD SUCCI 40 MG/ML 1 ML VIAL IV SCH ×3 (00:49→16:29)
[2020-07-25] MEDS: HYDROcodone/APAP 5-325MG 1 EACH TAB PO PRN ×3 (00:49→16:29)
--- NOTE | 2020-07-25 04:08 | P.PN ---
Subjective This is a 65-year-old female with history of severe persistent asthma, cerebral immunoglobulin deficiency syndrome, chronic steroid dependence, degenerative joint disease, osteoporosis, medical debility tracheobronchomalacia, hypertension, type 2 diabetes, patient presented to the ER with 1 week history of shortness of breath. Patient saw Dr. Kothari few days ago with mostly symptoms of cough and shortness of breath, however she had no fever no chills. Patient was placed on Levaquin, and diagnosed as having possible left sided pneumonia. Patient continued to do poorly, she is developing more and more shortness of breath, had no fever, no chills, she did have some mild nausea, and her cough has been productive with yellow phlegm. Patient has been using her updraft treatment quite frequently at home, but not much improvement noted. Patient had no headache, no blurred vision, no dizziness, loss or loss of sensation of taste or smell, she had no GI symptoms except for nausea, no vomiting. Patient denied any urinary complaints. Chest x-ray on this admission showed extensive bilateral infiltrates, left more so than right. Patient tested positive for covid 19 pneumonitis. Hence the patient will be admitted to the intensive care unit. Patient was placed on BiPAP overnight, presently transitioned to a nasal cannula at 5 L/m, and O2 saturations 95%. Initially her O2 saturation when he percent on 5 L nasal cannula up on her initial presentation. And when I was notified about this patient last night, I recommended BiPAP CBC showed WBC count is 5.5, she had relative lymphopenia. But normal platelets. D-dimer was 1.27. LDH 937 C-reactive protein is 191.6. Patient was reevaluated today on 07/23/20, patient remains in the ICU, seems to be doing a bit better compared to yesterday. She is now on 4 L nasal cannula, off BiPAP which she required yesterday. And breathing a bit easier, but continues to cough, and continues to have shortness of breath. Chest x-ray continues to show patchy perihilar and basilar infiltrates, maybe slightly better compared to the chest x-ray yesterday. CBC is relatively normal basic metabolic profile is normal. Patient is receiving remdsivir, and may arrange for having a unit of convalescent plasma 07/23/20 Vision remains in critical condition in the ICU, she's been admitted for Covid pneumonia and severe asthma with acute hypoxic respiratory failure, she's been followed closely by pulmonary/critical care team,She still needs 4 L of oxygen to keep her saturating at 93% was shortness of breath and dyspnea Patient is being treated with Levaquin empirically, Solu-Medrol to help her asthma attack and remdesivir . As well as vitamin C and zinc 07/24/2020 Patient still Slightly dyspneic, but not in respiratory distress, she is saturating about 93-94% on 4 L oxygen via nasal cannula and she remains on treatment for Covid pneumonia including steroids with Solu-Medrol as well as vitamin C, zinc and remdesivir , also patient is status post convalescent plasma. She looks more stable and improving and pulmonary/critical care team recommended to transfer out of the ICU to the general medical floor CONSTITUTIONAL: No fever, no malaise, no fatigue. HEENT: No recent visual problems or hearing problems. Denied any sore throat. CARDIOVASCULAR: No orthopnea, PND, no palpitations, no syncope. PULMONARY: No chest wall tenderness, no hemoptysis. GASTROINTESTINAL: No diarrhea, no nausea, no vomiting, no abdominal pain. Normoactive bowel sounds. NEUROLOGICAL: No headaches, no weakness, no numbness. Active Medications Generic Name Dose Route Start Last Admin Trade Name Freq PRN Reason Stop Dose Admin Acetaminophen 650 mg 07/21/20 21:16 07/22/20 16:13 Acetaminophen Tab 325 Mg Tab PO 650 mg Q6HR PRN Administration Mild Pain or Fever > 100.5 Hydrocodone Bitart/Acetaminophen 1 each 07/22/20 18:41 07/25/20 00:49 Hydrocodone/Apap 5-325mg 1 Each Tab PO 1 each Q6HR PRN Administration Pain Albuterol Sulfate 2 puff 07/23/20 08:00 07/24/20 21:02 Albuterol Hfa Inhaler INHALATION 2 puff RT-QID DIO Administration Alprazolam 0.5 mg 07/22/20 22:00 07/24/20 21:16 Alprazolam 0.5 Mg Tab PO 0.5 mg TID DIO Administration Alprazolam 0.25 mg 07/22/20 18:41 Alprazolam 0.25 Mg Tab PO HS PRN Anxiety Amitriptyline HCl 30 mg 07/22/20 21:00 07/24/20 21:17 Amitriptyline Hcl 10 Mg Tab PO 30 mg HS DIO Administration Ascorbic Acid 500 mg 07/22/20 21:00 07/24/20 21:17 Ascorbic Acid 500 Mg Tab PO 500 mg BID DIO Administration Bupropion HCl 450 mg 07/22/20 18:45 07/24/20 08:23 Bupropion Xl 150 Mg Tab.Er.24h PO 450 mg DAILY DIO Administration Buspirone HCl 20 mg 07/22/20 21:00 07/24/20 21:16 Buspirone Hcl 10 Mg Tab PO 20 mg BID DIO Administration Cholecalciferol 2,000 unit 07/22/20 16:45 07/24/20 08:25 Cholecalciferol 1,000 Unit Tab PO 2,000 unit DAILY DIO Administration Cyclobenzaprine HCl 10 mg 07/22/20 18:41 07/22/20 19:29 Cyclobenzaprine 10 Mg Tab PO 10 mg TID PRN Administration Muscle Pain Enoxaparin Sodium 40 mg 07/22/20 09:00 07/24/20 08:23 Enoxaparin 40 Mg/0.4 Ml Syringe SQ 40 mg DAILY DIO Administration Escitalopram Oxalate 30 mg 07/23/20 09:00 07/24/20 08:24 Escitalopram 10 Mg Tab PO 30 mg QAM DIO Administration Famotidine 20 mg 07/22/20 16:45 07/24/20 08:23 Famotidine 20 Mg Tab PO 20 mg DAILY DIO Administration Fluticasone Propionate 1 spray 07/23/20 09:00 07/24/20 10:46 Fluticasone 50mcg/Jachin Nasal 16gm EA NOSTRIL Not Given DAILY [facility] Furosemide 20 mg 07/22/20 21:00 07/24/20 21:17 Furosemide 20 Mg Tab PO 20 mg BID DIO Administration Guaifenesin 600 mg 07/22/20 18:41 Guaifenesin 600 Mg Tablet.Er PO BID PRN Congestion Remdesivir 100 mg/ Sodium 250 mls @ 250 mls/hr 07/23/20 15:00 07/24/20 15:25 Chloride IVPB 07/26/20 15:59 250 mls/hr DAILY@1500 DIO Administration Insulin Aspart 0 unit 07/22/20 07:30 07/24/20 21:16 Insulin Aspart (Novolog) 100 Unit/Ml Vial SQ 6 unit ACHS DIO Administration Protocol Levofloxacin 750 mg 07/23/20 09:00 07/24/20 08:24 Levofloxacin 750 Mg Tab PO 750 mg DAILY DIO Administration Magnesium Oxide 400 mg 07/23/20 12:00 07/24/20 12:34 Magnesium Oxide 400 Mg Tab PO 400 mg DAILY@1200 DIO Administration Methylprednisolone Sodium Succinate 40 mg 07/22/20 16:45 07/25/20 00:49 Methylprednisolone Sod Succi 40 Mg/Ml 1 Ml Vial IV 40 mg Q8HR DIO Administration Montelukast Sodium 10 mg 07/22/20 21:00 07/24/20 21:17 Montelukast 10 Mg Tab PO 10 mg HS DIO Administration Multi-Ingred Cream/Lotion/Oil/Oint 1 applic 07/23/20 07:09 07/24/20 21:18 Artificial Tears Ointment 3.5 Gm Tube BOTH EYES 1 applic QID PRN Administration Dry Eye(s) Naloxone HCl 0.2 mg 07/21/20 21:16 Naloxone 0.4 Mg/Ml 1 Ml Vial IV Q2M PRN Opioid Reversal Nystatin 500,000 unit 07/22/20 18:41 07/24/20 21:18 Nystatin 100,000 Unit/Ml Susp 500,000 Unit/5 Ml Cup PO 500,000 unit QID PRN Administration THRUSH Pantoprazole Sodium 40 mg 07/24/20 07:30 07/24/20 06:59 Pantoprazole 40 Mg Tablet PO 40 mg [id number] DIO Administration Potassium Chloride 60 meq 07/22/20 21:00 07/24/20 21:19 Potassium Chloride Er 20 Meq Tab.Er PO Not Given BID DIO Pravastatin Sodium 10 mg 07/22/20 21:00 07/24/20 21:16 Pravastatin Sodium 20 Mg Tab PO 10 mg HS DIO Administration Pregabalin 100 mg 07/22/20 22:00 07/24/20 21:17 Pregabalin 100 Mg Cap PO 100 mg TID DIO Administration Promethazine HCl 6.25 mg 07/22/20 19:27 Promethazine Hcl 6.25 Mg/5 Ml Cup PO Q4H PRN Cough Spironolactone 25 mg 07/22/20 22:00 07/24/20 21:16 Spironolactone 25 Mg Tab PO 25 mg TID DIO Administration Trazodone HCl 75 mg 07/22/20 21:00 07/24/20 21:18 Trazodone Hcl 50 Mg Tab PO 75 mg HS DIO Administration Zinc Sulfate 220 mg 07/23/20 09:00 07/24/20 10:53 Zinc Sulfate 220 Mg Cap PO 220 mg DAILY DIO Administration Objective - Vital Signs Vital signs: Vital Signs Temp 98.1 F 07/24/20 12:00 Pulse 78 07/24/20 13:00 Resp 17 07/24/20 13:00 BP 113/54 07/24/20 13:00 Pulse Ox 94 L 07/24/20 13:00 Intake & Output 07/23/20 07/24/20 07/24/20 18:59 06:59 18:59 Intake Total 463 360 100 Output Total 1120 1250 715 Balance -657 -890 -615 Weight 57 kg Intake: IV 250 Remdesivir (Eua) 100 mg 250 In Sodium Chloride 0.9% 250 ml @ 250 mls/hr IVPB DAILY@1500 [facility] Rx#: [id number] Oral 360 100 Blood Product 213 Ffp Pher Conval Covid19 213 Acda 3 Unit [id number] Output: Urine 1120 1250 715 Other: Voiding Method Indwelling Catheter Indwelling Catheter Indwelling Catheter - Exam GENERAL: The patient is alert and oriented x3, not in any acute distress. Well developed, well nourished. HEENT: Pupils are round and equally reacting to light. EOMI. No scleral icterus. No conjunctival pallor. Normocephalic, atraumatic. No pharyngeal erythema. No thyromegaly. CARDIOVASCULAR: S1 and S2 present. No murmurs, rubs, or gallops. -PULMONARY: Chest is clear to auscultation, no wheezing bilateral scattered crepitation ABDOMEN: Soft, nontender, nondistended, normoactive bowel sounds. No palpable organomegaly. MUSCULOSKELETAL: No joint swelling or deformity. EXTREMITIES: No cyanosis, clubbing, or pedal edema. NEUROLOGICAL: Gross neurological examination did not reveal any focal deficits. SKIN: No rashes. no petechiae. - Labs CBC & Chem 7: 07/24/20 04:56 07/24/20 04:56 Labs: Abnormal Lab Results - Last 24 Hours (Table) 07/23/20 07/23/20 07/23/20 Range/Units 16:48 20:42 22:07 Hgb (11.4-16.0) gm/dL Hct (34.0-46.0) % MCV (80.0-100.0) fL MCH (25.0-35.0) pg RDW (11.5-15.5) % Potassium (3.5-5.1) mmol/L Chloride (98-107) mmol/L BUN (7-17) mg/dL Glucose (74-99) mg/dL POC Glucose (mg/dL) 264 H 160 H 138 H (75-99) mg/dL Magnesium (1.6-2.3) mg/dL 07/24/20 07/24/20 07/24/20 Range/Units 04:56 04:56 06:54 Hgb 9.9 L (11.4-16.0) gm/dL Hct 31.2 L (34.0-46.0) % MCV 72.6 L (80.0-100.0) fL MCH 23.1 L (25.0-35.0) pg RDW 17.8 H (11.5-15.5) % Potassium 5.3 H (3.5-5.1) mmol/L Chloride 110 H (98-107) mmol/L BUN 29 H (7-17) mg/dL Glucose 208 H (74-99) mg/dL POC Glucose (mg/dL) 217 H (75-99) mg/dL Magnesium 2.5 H (1.6-2.3) mg/dL 07/24/20 Range/Units 11:57 Hgb (11.4-16.0) gm/dL Hct (34.0-46.0) % MCV (80.0-100.0) fL MCH (25.0-35.0) pg RDW (11.5-15.5) % Potassium (3.5-5.1) mmol/L Chloride (98-107) mmol/L BUN (7-17) mg/dL Glucose (74-99) mg/dL POC Glucose (mg/dL) 217 H (75-99) mg/dL Magnesium (1.6-2.3) mg/dL Microbiology - Last 24 Hours (Table) 07/21/20 19:12 Blood Culture - Preliminary Blood No Growth after 48 hours Assessment and Plan Assessment: -Acute comment pneumonia, continue with steroids in the form of Solu- Medrol,remdesivir , vitamin C and ascorbic acid. Pulmonary critical care team/consult, Lovenox -Acute hypoxic respiratory failure secondary to above, continue with BiPAP as needed and oxygen as needed -Increased inflammatory markers secondary to cholelithiasis infection. -Mild acute kidney injury Diabetes mellitus Hypertension Hyperlipidemia History of common variable immunoglobulin deficiency History of asthma/COPD Chronic back pain History of arterial insufficiency on steroids depending Hiatal hernia History of MRSA DVT prophylaxis: Lovenox GI prophylaxis: Protonix Prognosis is guarded
[2020-07-25 06:42] LABS: Anisocytosis Slight; HCT 31.8 % (34.0-46.0); Hypochromasia Moderate; MCH 22.7 pg (25.0-35.0); MCHC 31.5 g/dL (31.0-37.0); MCV 72.3 fL (80.0-100.0); Mean Platelet Volume 7.7; Microcytosis Moderate; Platelet Count 170 k/uL (150-450); RDW 17.6 % (11.5-15.5); WBC 7.8 k/uL (3.8-10.6)
[2020-07-25 07:01] LABS: Glucose,Whole Blood 205 mg/dL (75-99)
[2020-07-25 07:19] LABS: Calcium 8.5 mg/dL (8.4-10.2); Magnesium 2.5 mg/dL (1.6-2.3)
[2020-07-25] MEDS: POTASSIUM CHLORIDE ER 20 MEQ TAB.ER PO SCH ×2 (07:37→22:11)
[2020-07-25] MEDS: INSULIN ASPART (NovoLOG) 100 UNIT/ML VIAL SQ SCH ×3 (07:44→16:30)
[2020-07-25] MEDS: FUROSEMIDE 20 MG TAB PO SCH ×2 (07:45→21:43)
[2020-07-25] MEDS: ALPRAZolam 0.5 MG TAB PO SCH ×3 (07:45→21:42)
[2020-07-25] MEDS: PREGABALIN 100 MG CAP PO SCH ×3 (07:45→21:55)
[2020-07-25] MEDS: busPIRone HCl 10 MG TAB PO SCH ×2 (07:45→21:41)
[2020-07-25] MEDS: buPROPion XL 150 MG TAB.ER.24H PO SCH (07:45)
[2020-07-25] MEDS: ASCORBIC ACID 500 MG TAB PO SCH ×2 (07:46→21:43)
[2020-07-25] MEDS: FAMOTIDINE 20 MG TAB PO SCH (07:46)
[2020-07-25] MEDS: SPIRONOLACTONE 25 MG TAB PO SCH ×3 (07:46→21:43)
[2020-07-25] MEDS: ZINC SULFATE 220 MG CAP PO SCH (07:46)
[2020-07-25] MEDS: PANTOPRAZOLE 40 MG TABLET PO SCH (07:46)
[2020-07-25] MEDS: FLUTICASONE 50MCG/SPRAY NASAL 16GM EA NOSTRIL SCH (07:46)
[2020-07-25] MEDS: CHOLECALCIFEROL 1,000 UNIT TAB PO SCH (07:46)
[2020-07-25] MEDS: ENOXAPARIN 40 MG/0.4 ML SYRINGE SQ SCH (07:47)
[2020-07-25] MEDS: LEVOFLOXACIN 750 MG TAB PO SCH (07:47)
[2020-07-25] MEDS: ESCITALOPRAM 10 MG TAB PO SCH (07:59)
--- NOTE | 2020-07-25 08:02 | XR ---
EXAMINATION TYPE: XR chest 1V portable DATE OF EXAM: 07/25/2020 CLINICAL HISTORY: Difficulty breathing and covid pneumonia progress study. TECHNIQUE: Single AP portable upright view of the chest is obtained. COMPARISON: Chest x-ray from one day earlier and older studies. FINDINGS: Right internal jugular Mediport catheter now redemonstrated. There is background chronic p arenchymal change and elevated left hemidiaphragm with persistent left greater than right bibasilar o pacities. Background low lung volumes redemonstrated. The cardiac silhouette size is stable and uppe r limits of normal with atherosclerotic change aortic knob. Osseous structures are somewhat demineral ized. IMPRESSION: Chronic parenchymal changes and low lung volumes with bibasilar acute atelectasis and/or infiltrate redemonstrated. Findings slightly worsened from one day earlier but may be exaggerated by diminished inspiration.
[2020-07-25] MEDS: ALBUTEROL HFA INHALER INHALATION SCH ×4 (09:31→19:40)
[2020-07-25 11:31] LABS: Glucose,Whole Blood 240 mg/dL (75-99)
[2020-07-25] MEDS: MAGNESIUM OXIDE 400 MG TAB PO SCH (12:07)
--- NOTE | 2020-07-25 14:37 | P.PN ---
Subjective Progress Note Date: 07/25/20 Principal diagnosis: Acute hypoxic respiratory failure secondary to CoVID 19 pneumonitis This is a 65-year-old female with history of severe persistent asthma, cerebral immunoglobulin deficiency syndrome, chronic steroid dependence, degenerative joint disease, osteoporosis, medical debility tracheobronchomalacia, hypertension, type 2 diabetes, patient presented to the ER with 1 week history of shortness of breath. Patient saw Dr. Kothari few days ago with mostly symptoms of cough and shortness of breath, however she had no fever no chills. Patient was placed on Levaquin, and diagnosed as having possible left sided pneumonia. Patient continued to do poorly, she is developing more and more shortness of breath, had no fever, no chills, she did have some mild nausea, and her cough has been productive with yellow phlegm. Patient has been using her updraft treatment quite frequently at home, but not much improvement noted. Patient had no headache, no blurred vision, no dizziness, loss or loss of sensation of taste or smell, she had no GI symptoms except for nausea, no vomiting. Patient denied any urinary complaints. Chest x-ray on this admission showed extensive bilateral infiltrates, left more so than right. Patient tested positive for covid 19 pneumonitis. Hence the patient will be admitted to the intensive care unit. Patient was placed on BiPAP overnight, presently transitioned to a nasal cannula at 5 L/m, and O2 saturations 95%. Initially her O2 saturation when he percent on 5 L nasal cannula up on her initial presentation. And when I was notified about this patient last night, I recommended BiPAP CBC showed WBC count is 5.5, she had relative lymphopenia. But normal platelets. D-dimer was 1.27. LDH 937 C-reactive protein is 191.6. Patient was reevaluated today on 07/23/20, patient remains in the ICU, seems to be doing a bit better compared to yesterday. She is now on 4 L nasal cannula, off BiPAP which she required yesterday. And breathing a bit easier, but continues to cough, and continues to have shortness of breath. Chest x-ray continues to show patchy perihilar and basilar infiltrates, maybe slightly better compared to the chest x-ray yesterday. CBC is relatively normal basic metabolic profile is normal. Patient is receiving remdsivir, and may arrange for having a unit of convalescent plasma Reevaluated today on 07/24/20, remains in the ICU, patient is on 4 L nasal cannula, she is on remdesivir, patient received 1 unit of convalescent plasma, seems to be doing well today, breathing easier, she is only on 4 L nasal cannula relatively normal CBC noted today, relatively normal electrolytes and normal renal profile. Chest x-ray continues to show by basilar infiltrates. And slight improvement in the perihilar interstitial edema/infiltrates noted The patient is seen today 07/25/2020 in follow-up on the regular medical floor. She is currently resting quite comfortably in bed. Awake and alert in no acute distress. Denies any worsening shortness of breath, cough or congestion. She is maintaining good O2 saturations in the 90s on 4 L/m per nasal cannula. Chest x-ray showing improvement. This is day #3 of Remdesivir. She remains on Lovenox, IV Solu-Medrol, bronchodilators. White count 7.8. Hemoglobin 10.0. Sodium 137. Potassium 5.0. Creatinine 0.86. Objective - Vital Signs Vital signs: Vital Signs Temp 98.3 F 07/25/20 09:05 Pulse 80 07/25/20 09:05 Resp 17 07/25/20 09:05 BP 113/65 07/25/20 09:05 Pulse Ox 92 L 07/25/20 09:05 Intake & Output 07/24/20 07/25/20 07/25/20 18:59 06:59 18:59 Intake Total 500 Output Total 1105 75 1200 Balance - Intake: Oral 500 Output: Urine 1105 75 1200 Uretheral ([place]) 1200 Other: Voiding Method Indwelling Catheter - Exam General appearance: Revealed a 65-year-old female in no distress,on 4 L nasal cannula Head: Atraumatic, normocephalic. ENT exam: normal exam, normal oropharynx, mucous membranes moist Respiratory exam: Symmetrical chest expansion, minimal crackles at the bases. Cardiovascular Exam: Normal S1 and S2, no S3 gallop. GI/Abdominal exam: Soft nontender no megaly no rebound no guarding. Neurological exam: Alert and oriented 3, no gross focal deficits. Psychiatric exam: Normal mood affect and normal mental status examination. Skin exam: warm, dry, intact, normal color. Absent: rash - Labs CBC & Chem 7: 07/25/20 06:19 07/25/20 06:19 Labs: Abnormal Lab Results - Last 24 Hours (Table) 07/24/20 07/24/20 07/25/20 Range/Units 17:20 20:39 06:19 Hgb 10.0 L (11.4-16.0) gm/dL Hct 31.8 L (34.0-46.0) % MCV 72.3 L (80.0-100.0) fL MCH 22.7 L (25.0-35.0) pg RDW 17.6 H (11.5-15.5) % BUN (7-17) mg/dL Glucose (74-99) mg/dL POC Glucose (mg/dL) 216 H 209 H (75-99) mg/dL Magnesium (1.6-2.3) mg/dL 07/25/20 07/25/20 07/25/20 Range/Units 06:19 06:58 11:28 Hgb (11.4-16.0) gm/dL Hct (34.0-46.0) % MCV (80.0-100.0) fL MCH (25.0-35.0) pg RDW (11.5-15.5) % BUN 35 H (7-17) mg/dL Glucose 212 H (74-99) mg/dL POC Glucose (mg/dL) 205 H 240 H (75-99) mg/dL Magnesium 2.5 H (1.6-2.3) mg/dL Microbiology - Last 24 Hours (Table) 07/21/20 19:12 Blood Culture - Preliminary Blood No Growth after 72 hours Assessment and Plan Assessment: Acute on chronic hypoxic respiratory failure secondary to covid 19 pneumonitis Severe persistent asthma Tracheobronchomalacia Common variable immune deficiency syndrome Chronic steroids use and dependence Previous history of atypical mycobacterial infection History of glaucoma History of fibromyalgia. History of spine fracture. Type 2 diabetes presently on insulin pump Chronic pain syndrome Plan: The patient was seen and evaluated by Dr. Valdes Chest x-ray and labs reviewed Continue the current treatment plan Day #3 of Remdesivir Titrate down the FiO2 as tolerated We'll continue to follow I, the cosigning physician, performed a history & physical examination of the patient. Lungs sounds diminished, basilar crackles. Maintaining good O2 saturations in the 90s on 4 L/m per nasal cannula. I discussed the assessment and plan of care with my nurse practitioner, Jailyn Ruiz. I attest to the above note as dictated by her.
[2020-07-25 16:23] LABS: Glucose,Whole Blood 246 mg/dL (75-99)
[2020-07-25] MEDS: REMDESIVIR 100 MG in SODIUM CHLORIDE 0.9% 250 ML IVPB SCH (16:52)
[2020-07-25] MEDS: CYCLOBENZAPRINE 10 MG TAB PO PRN (19:45)
[2020-07-25 20:36] LABS: Glucose,Whole Blood 302 mg/dL (75-99)
--- NOTE | 2020-07-25 21:07 | P.PN ---
Subjective This is a 65-year-old female with history of severe persistent asthma, cerebral immunoglobulin deficiency syndrome, chronic steroid dependence, degenerative joint disease, osteoporosis, medical debility tracheobronchomalacia, hypertension, type 2 diabetes, patient presented to the ER with 1 week history of shortness of breath. Patient saw Dr. Kothari few days ago with mostly symptoms of cough and shortness of breath, however she had no fever no chills. Patient was placed on Levaquin, and diagnosed as having possible left sided pneumonia. Patient continued to do poorly, she is developing more and more shortness of breath, had no fever, no chills, she did have some mild nausea, and her cough has been productive with yellow phlegm. Patient has been using her updraft treatment quite frequently at home, but not much improvement noted. Patient had no headache, no blurred vision, no dizziness, loss or loss of sensation of taste or smell, she had no GI symptoms except for nausea, no vomiting. Patient denied any urinary complaints. Chest x-ray on this admission showed extensive bilateral infiltrates, left more so than right. Patient tested positive for covid 19 pneumonitis. Hence the patient will be admitted to the intensive care unit. Patient was placed on BiPAP overnight, presently transitioned to a nasal cannula at 5 L/m, and O2 saturations 95%. Initially her O2 saturation when he percent on 5 L nasal cannula up on her initial presentation. And when I was notified about this patient last night, I recommended BiPAP CBC showed WBC count is 5.5, she had relative lymphopenia. But normal platelets. D-dimer was 1.27. LDH 937 C-reactive protein is 191.6. Patient was reevaluated today on 07/23/20, patient remains in the ICU, seems to be doing a bit better compared to yesterday. She is now on 4 L nasal cannula, off BiPAP which she required yesterday. And breathing a bit easier, but continues to cough, and continues to have shortness of breath. Chest x-ray continues to show patchy perihilar and basilar infiltrates, maybe slightly better compared to the chest x-ray yesterday. CBC is relatively normal basic metabolic profile is normal. Patient is receiving remdsivir, and may arrange for having a unit of convalescent plasma 07/23/20 Vision remains in critical condition in the ICU, she's been admitted for Covid pneumonia and severe asthma with acute hypoxic respiratory failure, she's been followed closely by pulmonary/critical care team,She still needs 4 L of oxygen to keep her saturating at 93% was shortness of breath and dyspnea Patient is being treated with Levaquin empirically, Solu-Medrol to help her asthma attack and remdesivir . As well as vitamin C and zinc 07/24/2020 Patient still Slightly dyspneic, but not in respiratory distress, she is saturating about 93-94% on 4 L oxygen via nasal cannula and she remains on treatment for Covid pneumonia including steroids with Solu-Medrol as well as vitamin C, zinc and remdesivir , also patient is status post convalescent plasma. She looks more stable and improving and pulmonary/critical care team recommended to transfer out of the ICU to the general medical floor 07/25/20 Patient was transferred out of the ICU, she needs this oxygen therapy at 3 L nasal cannula. She still slightly tachypneic with coughing. Chest x-ray shows slight worsening of the basal infiltrates with some chronic changes Pulmonary team on the case,. Today is #3 dose of remdesivir. Also continue with Levaquin and Solu-Medrol Pulmonary on the case CONSTITUTIONAL: No fever, no malaise, no fatigue. HEENT: No recent visual problems or hearing problems. Denied any sore throat. CARDIOVASCULAR: No orthopnea, PND, no palpitations, no syncope. PULMONARY: No chest wall tenderness, no hemoptysis. GASTROINTESTINAL: No diarrhea, no nausea, no vomiting, no abdominal pain. Normoactive bowel sounds. NEUROLOGICAL: No headaches, no weakness, no numbness. Active Medications Generic Name Dose Route Start Last Admin Trade Name Freq PRN Reason Stop Dose Admin Acetaminophen 650 mg 07/21/20 21:16 07/22/20 16:13 Acetaminophen Tab 325 Mg Tab PO 650 mg Q6HR PRN Administration Mild Pain or Fever > 100.5 Hydrocodone Bitart/Acetaminophen 1 each 07/22/20 18:41 07/25/20 16:29 Hydrocodone/Apap 5-325mg 1 Each Tab PO 1 each Q6HR PRN Administration Pain Albuterol Sulfate 2 puff 07/23/20 08:00 07/25/20 19:40 Albuterol Hfa Inhaler INHALATION 2 puff RT-QID DIO Administration Alprazolam 0.5 mg 07/22/20 22:00 07/25/20 16:30 Alprazolam 0.5 Mg Tab PO 0.5 mg TID DIO Administration Alprazolam 0.25 mg 07/22/20 18:41 Alprazolam 0.25 Mg Tab PO HS PRN Anxiety Amitriptyline HCl 30 mg 07/22/20 21:00 07/24/20 21:17 Amitriptyline Hcl 10 Mg Tab PO 30 mg HS DIO Administration Ascorbic Acid 500 mg 07/22/20 21:00 07/25/20 07:46 Ascorbic Acid 500 Mg Tab PO 500 mg BID DIO Administration Bupropion HCl 450 mg 07/22/20 18:45 07/25/20 07:45 Bupropion Xl 150 Mg Tab.Er.24h PO 450 mg DAILY DIO Administration Buspirone HCl 20 mg 07/22/20 21:00 07/25/20 07:45 Buspirone Hcl 10 Mg Tab PO 20 mg BID DIO Administration Cholecalciferol 2,000 unit 07/22/20 16:45 07/25/20 07:46 Cholecalciferol 1,000 Unit Tab PO 2,000 unit DAILY DIO Administration Cyclobenzaprine HCl 10 mg 07/22/20 18:41 07/25/20 19:45 Cyclobenzaprine 10 Mg Tab PO 10 mg TID PRN Administration Muscle Pain Enoxaparin Sodium 40 mg 07/22/20 09:00 07/25/20 07:47 Enoxaparin 40 Mg/0.4 Ml Syringe SQ 40 mg DAILY DIO Administration Escitalopram Oxalate 30 mg 07/23/20 09:00 07/25/20 07:59 Escitalopram 10 Mg Tab PO 30 mg QAM DIO Administration Famotidine 20 mg 07/22/20 16:45 07/25/20 07:46 Famotidine 20 Mg Tab PO 20 mg DAILY [facility] Administration Fluticasone Propionate 1 spray 07/23/20 09:00 07/25/20 07:46 Fluticasone 50mcg/[place] Nasal 16gm EA NOSTRIL Not Given DAILY [facility] Furosemide 20 mg 07/22/20 21:00 07/25/20 07:45 Furosemide 20 Mg Tab PO 20 mg BID DIO Administration Guaifenesin 600 mg 07/22/20 18:41 Guaifenesin 600 Mg Tablet.Er PO BID PRN Congestion Remdesivir 100 mg/ Sodium 250 mls @ 250 mls/hr 07/23/20 15:00 07/25/20 16:52 Chloride IVPB 07/26/20 15:59 250 mls/hr DAILY@1500 DIO Administration Insulin Aspart 0 unit 07/22/20 07:30 07/25/20 16:30 Insulin Aspart (Novolog) 100 Unit/Ml Vial SQ 8 unit ACHS DIO Administration Protocol Levofloxacin 750 mg 07/23/20 09:00 07/25/20 07:47 Levofloxacin 750 Mg Tab PO 750 mg DAILY DIO Administration Magnesium Oxide 400 mg 07/23/20 12:00 07/25/20 12:07 Magnesium Oxide 400 Mg Tab PO 400 mg DAILY@1200 DIO Administration Methylprednisolone Sodium Succinate 40 mg 07/22/20 16:45 07/25/20 16:29 Methylprednisolone Sod Succi 40 Mg/Ml 1 Ml Vial IV 40 mg Q8HR DIO Administration Montelukast Sodium 10 mg 07/22/20 21:00 07/24/20 21:17 Montelukast 10 Mg Tab PO 10 mg HS DIO Administration Multi-Ingred Cream/Lotion/Oil/Oint 1 applic 07/23/20 07:09 07/24/20 21:18 Artificial Tears Ointment 3.5 Gm Tube BOTH EYES 1 applic QID PRN Administration Dry Eye(s) Naloxone HCl 0.2 mg 07/21/20 21:16 Naloxone 0.4 Mg/Ml 1 Ml Vial IV Q2M PRN Opioid Reversal Nystatin 500,000 unit 07/22/20 18:41 07/24/20 21:18 Nystatin 100,000 Unit/Ml Susp 500,000 Unit/5 Ml Cup PO 500,000 unit QID PRN Administration THRUSH Pantoprazole Sodium 40 mg 07/24/20 07:30 07/25/20 07:46 Pantoprazole 40 Mg Tablet PO 40 mg [id number] DIO Administration Potassium Chloride 60 meq 07/22/20 21:00 07/25/20 07:37 Potassium Chloride Er 20 Meq Tab.Er PO Not Given BID DIO Pravastatin Sodium 10 mg 07/22/20 21:00 07/24/20 21:16 Pravastatin Sodium 20 Mg Tab PO 10 mg HS DIO Administration Pregabalin 100 mg 07/22/20 22:00 07/25/20 16:29 Pregabalin 100 Mg Cap PO 100 mg TID DIO Administration Promethazine HCl 6.25 mg 07/22/20 19:27 Promethazine Hcl 6.25 Mg/5 Ml Cup PO Q4H PRN Cough Spironolactone 25 mg 07/22/20 22:00 07/25/20 16:30 Spironolactone 25 Mg Tab PO 25 mg TID DIO Administration Trazodone HCl 75 mg 07/22/20 21:00 07/24/20 21:18 Trazodone Hcl 50 Mg Tab PO 75 mg HS DIO Administration Zinc Sulfate 220 mg 07/23/20 09:00 07/25/20 07:46 Zinc Sulfate 220 Mg Cap PO 220 mg DAILY DIO Administration Objective - Vital Signs Vital signs: Vital Signs Temp 98.4 F 07/25/20 13:27 Pulse 104 H 07/25/20 13:27 Resp 18 07/25/20 13:27 BP 105/58 07/25/20 13:27 Pulse Ox 89 L 07/25/20 13:27 Intake & Output 07/24/20 07/25/20 07/25/20 18:59 06:59 18:59 Intake Total 500 Output Total 1105 75 1200 Balance - Intake: Oral 500 Output: Urine 1105 75 1200 Uretheral ([place]) 1200 Other: Voiding Method Indwelling Catheter - Exam GENERAL: The patient is alert and oriented x3, not in any acute distress. Well developed, well nourished. HEENT: Pupils are round and equally reacting to light. EOMI. No scleral icterus. No conjunctival pallor. Normocephalic, atraumatic. No pharyngeal erythema. No thyromegaly. CARDIOVASCULAR: S1 and S2 present. No murmurs, rubs, or gallops. -PULMONARY: Chest is clear to auscultation, no wheezing bilateral scattered crepitation ABDOMEN: Soft, nontender, nondistended, normoactive bowel sounds. No palpable organomegaly. MUSCULOSKELETAL: No joint swelling or deformity. EXTREMITIES: No cyanosis, clubbing, or pedal edema. NEUROLOGICAL: Gross neurological examination did not reveal any focal deficits. SKIN: No rashes. no petechiae. - Labs CBC & Chem 7: 07/25/20 06:19 07/25/20 06:19 Labs: Abnormal Lab Results - Last 24 Hours (Table) 07/24/20 07/25/20 07/25/20 Range/Units 20:39 06:19 06:19 Hgb 10.0 L (11.4-16.0) gm/dL Hct 31.8 L (34.0-46.0) % MCV 72.3 L (80.0-100.0) fL MCH 22.7 L (25.0-35.0) pg RDW 17.6 H (11.5-15.5) % BUN 35 H (7-17) mg/dL Glucose 212 H (74-99) mg/dL POC Glucose (mg/dL) 209 H (75-99) mg/dL Magnesium 2.5 H (1.6-2.3) mg/dL 07/25/20 07/25/20 07/25/20 Range/Units 06:58 11:28 16:19 Hgb (11.4-16.0) gm/dL Hct (34.0-46.0) % MCV (80.0-100.0) fL MCH (25.0-35.0) pg RDW (11.5-15.5) % BUN (7-17) mg/dL Glucose (74-99) mg/dL POC Glucose (mg/dL) 205 H 240 H 246 H (75-99) mg/dL Magnesium (1.6-2.3) mg/dL Microbiology - Last 24 Hours (Table) 07/21/20 19:12 Blood Culture - Preliminary Blood No Growth after 72 hours Assessment and Plan Assessment: -Acute comment pneumonia, continue with steroids in the form of Solu- Medrol,remdesivir , vitamin C and ascorbic acid. Pulmonary critical care team/consult, Lovenox -Acute hypoxic respiratory failure secondary to above, continue with BiPAP as needed and oxygen as needed -Increased inflammatory markers secondary to cholelithiasis infection. -Mild acute kidney injury Diabetes mellitus Hypertension Hyperlipidemia History of common variable immunoglobulin deficiency History of asthma/COPD Chronic back pain History of arterial insufficiency on steroids depending Hiatal hernia History of MRSA DVT prophylaxis: Lovenox GI prophylaxis: Protonix Prognosis is guarded
[2020-07-25] MEDS: traZODone HCL 50 MG TAB PO SCH (21:41)
[2020-07-25] MEDS: PRAVASTATIN SODIUM 20 MG TAB PO SCH (21:54)
[2020-07-25] MEDS: MONTELUKAST 10 MG TAB PO SCH (21:55)
[2020-07-25 22:28] LABS: Glucose,Whole Blood 336 mg/dL (75-99)
[2020-07-25] MEDS: AMITRIPTYLINE HCL 10 MG TAB PO SCH (23:06)
[2020-07-26 00:31] LABS: Glucose,Whole Blood 295 mg/dL (75-99)
[2020-07-26] MEDS: methylPREDNISolone SOD SUCCI 40 MG/ML 1 ML VIAL IV SCH ×3 (00:33→15:34)
[2020-07-26] MEDS: INSULIN ASPART (NovoLOG) 100 UNIT/ML VIAL SQ SCH ×5 (00:42→21:57)
[2020-07-26 07:13] LABS: Glucose,Whole Blood 236 mg/dL (75-99)
[2020-07-26 07:19] LABS: Anisocytosis Slight; HCT 34.1 % (34.0-46.0); HGB 10.4 gm/dL (11.4-16.0); Hypochromasia Marked; MCH 22.3 pg (25.0-35.0); MCHC 30.5 g/dL (31.0-37.0); MCV 72.9 fL (80.0-100.0); Mean Platelet Volume 7.6; Microcytosis Moderate; Platelet Count 189 k/uL (150-450); RBC 4.68 m/uL (3.80-5.40); RDW 17.8 % (11.5-15.5); WBC 8.1 k/uL (3.8-10.6)
--- NOTE | 2020-07-26 08:34 | XR ---
EXAMINATION TYPE: XR chest 1V portable DATE OF EXAM: 07/26/2020 COMPARISON: 07/25/2020 INDICATION: Pneumonia,: TECHNIQUE: Single frontal view of the chest is obtained. FINDINGS: The heart size is normal. The pulmonary vasculature is normal. Bibasilar linear opacities are present more likely related atelectasis. However, infiltrate such as w ith atypical pneumonia is within the differential. Port is present on the right with the tip in the distal superior vena cava region IMPRESSION: 1. Bibasilar infiltrates. Atelectasis and atypical pneumonia within the differential. Continued follo w-up is recommended.
[2020-07-26] MEDS: CHOLECALCIFEROL 1,000 UNIT TAB PO SCH (09:04)
[2020-07-26] MEDS: PANTOPRAZOLE 40 MG TABLET PO SCH (09:04)
[2020-07-26] MEDS: MAGNESIUM OXIDE 400 MG TAB PO SCH (09:04)
[2020-07-26] MEDS: ALPRAZolam 0.5 MG TAB PO SCH ×3 (09:04→21:48)
[2020-07-26] MEDS: SPIRONOLACTONE 25 MG TAB PO SCH ×3 (09:04→21:49)
[2020-07-26] MEDS: ASCORBIC ACID 500 MG TAB PO SCH ×2 (09:04→21:49)
[2020-07-26] MEDS: ZINC SULFATE 220 MG CAP PO SCH (09:04)
[2020-07-26] MEDS: FAMOTIDINE 20 MG TAB PO SCH (09:04)
[2020-07-26] MEDS: busPIRone HCl 10 MG TAB PO SCH ×2 (09:05→21:48)
[2020-07-26] MEDS: ENOXAPARIN 40 MG/0.4 ML SYRINGE SQ SCH (09:05)
[2020-07-26] MEDS: PREGABALIN 100 MG CAP PO SCH ×3 (09:05→21:49)
[2020-07-26] MEDS: buPROPion XL 150 MG TAB.ER.24H PO SCH (09:05)
[2020-07-26] MEDS: FUROSEMIDE 20 MG TAB PO SCH ×2 (09:05→21:49)
[2020-07-26] MEDS: LEVOFLOXACIN 750 MG TAB PO SCH (09:06)
[2020-07-26] MEDS: ESCITALOPRAM 10 MG TAB PO SCH (09:06)
[2020-07-26] MEDS: POTASSIUM CHLORIDE ER 20 MEQ TAB.ER PO SCH ×2 (09:07→21:49)
[2020-07-26] MEDS: FLUTICASONE 50MCG/SPRAY NASAL 16GM EA NOSTRIL SCH (09:07)
[2020-07-26 09:46] LABS: African American GFR (CKD) 76.7 (60.0-200.0); Anion Gap 7.7 mmol/L (4.00-12.00); BUN/Creat Ratio 43.33 Ratio (12.00-20.00); Calcium 8.8 mg/dL (8.7-10.3); Carbon Dioxide 29.3 mmol/L (21.6-31.8); Magnesium 2.4 mg/dL (1.5-2.4); Non-African American GFR(CKD) 66.2 (60.0-200.0); Potassium 4.7 mmol/L (3.5-5.5)
[2020-07-26] MEDS: ALBUTEROL HFA INHALER INHALATION SCH ×4 (10:30→19:51)
[2020-07-26 11:38] LABS: Glucose,Whole Blood 250 mg/dL (75-99)
[2020-07-26] MEDS: REMDESIVIR 100 MG in SODIUM CHLORIDE 0.9% 250 ML IVPB SCH (15:37)
[2020-07-26 16:39] LABS: Glucose,Whole Blood 171 mg/dL (75-99)
--- NOTE | 2020-07-26 17:30 | P.PN ---
Subjective Progress Note Date: 07/26/20 Principal diagnosis: This is a 65-year-old female with history of severe persistent asthma, cerebral immunoglobulin deficiency syndrome, chronic steroid dependence, degenerative david nt disease, osteoporosis, medical debility tracheobronchomalacia, hypertension, type 2 diabetes, patient presented to the ER with 1 week history of shortness of breath. Patient saw Dr. Kothari few days ago with mostly symptoms of cough and shortness of breath, however she had no fever no chills. Patient was placed on Levaquin, and diagnosed as having possible left sided pneumonia. Patient cont inued to do poorly, she is developing more and more shortness of breath, had no fever, no chills, she did have some mild nausea, and her cough has been productive with yellow phlegm. Patient has been using her updraft treatment quite frequently at home, but not much improvement noted. Patient had no headache, no blurred vision, no dizziness, loss or loss of sensation of taste or smell, she had no GI symptoms except for nausea, no vomiting. Patient denied any urinary complaints. Chest x-ray on this admission showed extensive bilateral infiltrates, left more so than right. Patient tested positive for covid 19 pneumonitis. Hence the patient will be admitted to the intensive care unit. Patient was placed on BiPAP overnight, presently transitioned to a nasal cannula at 5 L/m, and O2 saturations 95%. Initially her O2 saturation when he percent on 5 L nasal cannula up on her initial presentation. And when I was notified about this patient last night, I recommended BiPAP CBC showed WBC count is 5.5, she had relative lymphopenia. But normal platelets. D-dimer was 1.27. LDH 937 C-reactive protein is 191.6. Patient was reevaluated today on 07/23/20, patient remains in the ICU, seems to be doing a bit better compared to yesterday. She is now on 4 L nasal cannula, off BiPAP which she required yesterday. And breathing a bit easier, but continues to cough, and continues to have shortness of breath. Chest x-ray continues to show patchy perihilar and basilar infiltrates, maybe slightly better compared to the chest x-ray yesterday. CBC is relatively normal basic metabolic profile is normal. Patient is receiving remdsivir, and may arrange for having a unit of convalescent plasma Reevaluated today on 07/24/20, remains in the ICU, patient is on 4 L nasal cannula, she is on remdesivir, patient received 1 unit of convalescent plasma, seems to be doing well today, breathing easier, she is only on 4 L nasal cannula relatively normal CBC noted today, relatively normal electrolytes and normal renal profile. Chest x-ray continues to show by basilar infiltrates. And slight improvement in the perihilar interstitial edema/infiltrates noted The patient is seen today 07/25/2020 in follow-up on the regular medical floor. She is currently resting quite comfortably in bed. Awake and alert in no acute distress. Denies any worsening shortness of breath, cough or congestion. She is maintaining good O2 saturations in the 90s on 4 L/m per nasal cannula. Chest x-ray showing improvement. This is day #3 of Remdesivir. She remains on Lovenox, IV Solu-Medrol, bronchodilators. White count 7.8. Hemoglobin 10.0. Sodium 137. Potassium 5.0. Creatinine 0.86. On 07/26/2020 patient seen in follow-up in general medical floor. She states she is feeling better today, she is on 3 L of oxygen her pulse ox of 90%, today is day 5 of Remdesivir treatment, she's been afebrile, she denies any worsening dyspnea, chest discomfort, or palpitations, today's chest x-ray shows bibasilar infiltrates. Today's labs have been reviewed. Objective - Vital Signs Vital signs: Vital Signs Temp 98.7 F 07/26/20 15:02 Pulse 105 H 07/26/20 15:02 Resp 16 07/26/20 15:02 BP 108/69 07/26/20 15:02 Pulse Ox 94 L 07/26/20 15:02 Intake & Output 07/25/20 07/26/20 07/26/20 18:59 06:59 18:59 Output Total 1200 Balance -1200 Output: Urine 1200 Uretheral ([place]) 1200 Other: Voiding Method Indwelling Catheter - Exam GENERAL EXAM: Alert, very pleasant, 65-year-old white female on 3 L of oxygen a pulse ox of 90-94% comfortable in no apparent distress. HEAD: Normocephalic/atraumatic. EYES: Normal reaction of pupils, equal size. Conjunctiva pink, sclera white. NOSE: Clear with pink turbinates. THROAT: No erythema or exudates. NECK: No masses, no JVD, no thyroid enlargement, no adenopathy. CHEST: No chest wall deformity. Symmetrical expansion. LUNGS: Equal air entry with no crackles, wheeze, rhonchi or dullness. CVS: Regular rate and rhythm, normal S1 and S2, no gallops, no murmurs, no rubs ABDOMEN: Soft, nontender. No hepatosplenomegaly, normal bowel sounds, no guarding or rigidity. EXTREMITIES: No clubbing, no edema, no cyanosis, 2+ pulses and upper and lower extremities. MUSCULOSKELETAL: Muscle strength and tone normal. SPINE: No scoliosis or deformity SKIN: No rashes CENTRAL NERVOUS SYSTEM: Alert and oriented -3. No focal deficits, tone is normal in all 4 extremities. PSYCHIATRIC: Alert and oriented -3. Appropriate affect. Intact judgment and insight. - Labs CBC & Chem 7: 07/26/20 06:43 07/26/20 06:43 Labs: Abnormal Lab Results - Last 24 Hours (Table) 07/25/20 07/25/20 07/26/20 Range/Units 20:33 22:07 00:27 Hgb (11.4-16.0) gm/dL MCV (80.0-100.0) fL MCH (25.0-35.0) pg MCHC (31.0-37.0) g/dL RDW (11.5-15.5) % BUN (9.0-27.0) mg/dL BUN/Creatinine Ratio (12.00-20.00) Ratio Glucose (70-110) mg/dL POC Glucose (mg/dL) 302 H 336 H 295 H (75-99) mg/dL 07/26/20 07/26/20 07/26/20 Range/Units 06:43 06:43 07:05 Hgb 10.4 L (11.4-16.0) gm/dL MCV 72.9 L (80.0-100.0) fL MCH 22.3 L (25.0-35.0) pg MCHC 30.5 L (31.0-37.0) g/dL RDW 17.8 H (11.5-15.5) % BUN 39.0 H (9.0-27.0) mg/dL BUN/Creatinine Ratio 43.33 H (12.00-20.00) Ratio Glucose 242 H (70-110) mg/dL POC Glucose (mg/dL) 236 H (75-99) mg/dL 07/26/20 07/26/20 Range/Units 11:32 16:32 Hgb (11.4-16.0) gm/dL MCV (80.0-100.0) fL MCH (25.0-35.0) pg MCHC (31.0-37.0) g/dL RDW (11.5-15.5) % BUN (9.0-27.0) mg/dL BUN/Creatinine Ratio (12.00-20.00) Ratio Glucose (70-110) mg/dL POC Glucose (mg/dL) 250 H 171 H (75-99) mg/dL Microbiology - Last 24 Hours (Table) 07/21/20 19:12 Blood Culture - Preliminary Blood No Growth after 96 hours Assessment and Plan Plan: Assessment: #1. Acute on chronic hypoxic respiratory failure secondary to Coumadin 19 pneumonitis, on Remdesivir treatment started on 07/22/2020, and convalescent plasma transfusion #2. History of severe persistent chronic bronchial asthma #3. Tracheobronchomalacia #4. Common variable immunodeficiency syndrome #5. Chronic steroid use and chronic steroid dependence #6. Previous history of atypical mycobacterial infection #7. History of glaucoma #8. History of fibromyalgia #9. History of spine fracture #10. History of diabetes mellitus type 2 on insulin pump #11. Chronic pain syndrome Plan: Patient continues an Remdesivir treatment, today is day 4 of treatment, continue with steroids, bronchodilators, we'll obtain a pro-calcitonin level, for now continue empiric antibiotics, will obtain follow-up inflammatory markers, and follow-up chest x-ray in the morning, continue weaning FiO2 I performed a history & physical examination of the patient and discussed their management with my nurse practitioner, Eloise Hicks. I reviewed the nurse practitioner's note and agree with the documented findings and plan of care. Lung sounds are positive for diminished breath sounds. The findings and the impression was discussed with the patient. I attest to the documentation by the nurse practitioner. Time with Patient: Less than 30
[2020-07-26 20:58] LABS: Glucose,Whole Blood 244 mg/dL (75-99)
--- NOTE | 2020-07-26 21:01 | P.PN ---
Subjective This is a 65-year-old female with history of severe persistent asthma, cerebral immunoglobulin deficiency syndrome, chronic steroid dependence, degenerative joint disease, osteoporosis, medical debility tracheobronchomalacia, hypertension, type 2 diabetes, patient presented to the ER with 1 week history of shortness of breath. Patient saw Dr. Kothari few days ago with mostly symptoms of cough and shortness of breath, however she had no fever no chills. Patient was placed on Levaquin, and diagnosed as having possible left sided pneumonia. Patient continued to do poorly, she is developing more and more shortness of breath, had no fever, no chills, she did have some mild nausea, and her cough has been productive with yellow phlegm. Patient has been using her updraft treatment quite frequently at home, but not much improvement noted. Patient had no headache, no blurred vision, no dizziness, loss or loss of sensation of taste or smell, she had no GI symptoms except for nausea, no vomiting. Patient denied any urinary complaints. Chest x-ray on this admission showed extensive bilateral infiltrates, left more so than right. Patient tested positive for covid 19 pneumonitis. Hence the patient will be admitted to the intensive care unit. Patient was placed on BiPAP overnight, presently transitioned to a nasal cannula at 5 L/m, and O2 saturations 95%. Initially her O2 saturation when he percent on 5 L nasal cannula up on her initial presentation. And when I was notified about this patient last night, I recommended BiPAP CBC showed WBC count is 5.5, she had relative lymphopenia. But normal platelets. D-dimer was 1.27. LDH 937 C-reactive protein is 191.6. Patient was reevaluated today on 07/23/20, patient remains in the ICU, seems to be doing a bit better compared to yesterday. She is now on 4 L nasal cannula, off BiPAP which she required yesterday. And breathing a bit easier, but continues to cough, and continues to have shortness of breath. Chest x-ray continues to show patchy perihilar and basilar infiltrates, maybe slightly better compared to the chest x-ray yesterday. CBC is relatively normal basic metabolic profile is normal. Patient is receiving remdsivir, and may arrange for having a unit of convalescent plasma 07/23/20 Vision remains in critical condition in the ICU, she's been admitted for Covid pneumonia and severe asthma with acute hypoxic respiratory failure, she's been followed closely by pulmonary/critical care team,She still needs 4 L of oxygen to keep her saturating at 93% was shortness of breath and dyspnea Patient is being treated with Levaquin empirically, Solu-Medrol to help her asthma attack and remdesivir . As well as vitamin C and zinc 07/24/2020 Patient still Slightly dyspneic, but not in respiratory distress, she is saturating about 93-94% on 4 L oxygen via nasal cannula and she remains on treatment for Covid pneumonia including steroids with Solu-Medrol as well as vitamin C, zinc and remdesivir , also patient is status post convalescent plasma. She looks more stable and improving and pulmonary/critical care team recommended to transfer out of the ICU to the general medical floor 07/25/20 Patient was transferred out of the ICU, she needs this oxygen therapy at 3 L nasal cannula. She still slightly tachypneic with coughing. Chest x-ray shows slight worsening of the basal infiltrates with some chronic changes Pulmonary team on the case,. Today is #3 dose of remdesivir. Also continue with Levaquin and Solu-Medrol Pulmonary on the case 06/29/2020 Patient is with Covid pneumonia and severe asthma besides tracheobronchomalacia. She was moved of the ICU recently. Her oxygenation is improving and currently she is on 3 L oxygen via nasal can nula. Pulmonary team on the case Creatinine is back to normal, patient remains on Levaquin and Solu-Medrol, patient finished her therapy with remdesivir pro calcitonin is 0.11 which is slightly elevated Monitored inflammatory markers. CONSTITUTIONAL: No fever, no malaise, no fatigue. HEENT: No recent visual problems or hearing problems. Denied any sore throat. CARDIOVASCULAR: No orthopnea, PND, no palpitations, no syncope. PULMONARY: No chest wall tenderness, no hemoptysis. GASTROINTESTINAL: No diarrhea, no nausea, no vomiting, no abdominal pain. Normoactive bowel sounds. NEUROLOGICAL: No headaches, no weakness, no numbness. Active Medications Generic Name Dose Route Start Last Admin Trade Name Freq PRN Reason Stop Dose Admin Acetaminophen 650 mg 07/21/20 21:16 07/22/20 16:13 Acetaminophen Tab 325 Mg Tab PO 650 mg Q6HR PRN Administration Mild Pain or Fever > 100.5 Hydrocodone Bitart/Acetaminophen 1 each 07/22/20 18:41 07/25/20 16:29 Hydrocodone/Apap 5-325mg 1 Each Tab PO 1 each Q6HR PRN Administration Pain Albuterol Sulfate 2 puff 07/23/20 08:00 07/26/20 19:51 Albuterol Hfa Inhaler INHALATION 2 puff RT-QID DIO Administration Alprazolam 0.5 mg 07/22/20 22:00 07/26/20 15:37 Alprazolam 0.5 Mg Tab PO 0.5 mg TID DIO Administration Alprazolam 0.25 mg 07/22/20 18:41 Alprazolam 0.25 Mg Tab PO HS PRN Anxiety Amitriptyline HCl 30 mg 07/22/20 21:00 07/25/20 23:06 Amitriptyline Hcl 10 Mg Tab PO 30 mg HS DIO Administration Ascorbic Acid 500 mg 07/22/20 21:00 07/26/20 09:04 Ascorbic Acid 500 Mg Tab PO 500 mg BID DIO Administration Bupropion HCl 450 mg 07/22/20 18:45 07/26/20 09:05 Bupropion Xl 150 Mg Tab.Er.24h PO 450 mg DAILY DIO Administration Buspirone HCl 20 mg 07/22/20 21:00 07/26/20 09:05 Buspirone Hcl 10 Mg Tab PO 20 mg BID DIO Administration Cholecalciferol 2,000 unit 07/22/20 16:45 07/26/20 09:04 Cholecalciferol 1,000 Unit Tab PO 2,000 unit DAILY DIO Administration Cyclobenzaprine HCl 10 mg 07/22/20 18:41 07/25/20 19:45 Cyclobenzaprine 10 Mg Tab PO 10 mg TID PRN Administration Muscle Pain Enoxaparin Sodium 40 mg 07/22/20 09:00 07/26/20 09:05 Enoxaparin 40 Mg/0.4 Ml Syringe SQ 40 mg DAILY DIO Administration Escitalopram Oxalate 30 mg 07/23/20 09:00 07/26/20 09:06 Escitalopram 10 Mg Tab PO 30 mg QAM DIO Administration Famotidine 20 mg 07/22/20 16:45 07/26/20 09:04 Famotidine 20 Mg Tab PO 20 mg DAILY DIO Administration Fluticasone Propionate 1 spray 07/23/20 09:00 07/26/20 09:07 Fluticasone 50mcg/[place] Nasal 16gm EA NOSTRIL Not Given DAILY DIO Furosemide 20 mg 07/22/20 21:00 07/26/20 09:05 Furosemide 20 Mg Tab PO 20 mg BID DIO Administration Guaifenesin 600 mg 07/22/20 18:41 Guaifenesin 600 Mg Tablet.Er PO BID PRN Congestion Insulin Aspart 0 unit 07/22/20 07:30 07/26/20 17:41 Insulin Aspart (Novolog) 100 Unit/Ml Vial SQ 4 unit ACHS DIO Administration Protocol Levofloxacin 750 mg 07/23/20 09:00 07/26/20 09:06 Levofloxacin 750 Mg Tab PO 750 mg DAILY DIO Administration Magnesium Oxide 400 mg 07/23/20 12:00 07/26/20 09:04 Magnesium Oxide 400 Mg Tab PO 400 mg DAILY@1200 DIO Administration Methylprednisolone Sodium Succinate 40 mg 07/22/20 16:45 07/26/20 15:34 Methylprednisolone Sod Succi 40 Mg/Ml 1 Ml Vial IV 40 mg Q8HR DIO Administration Montelukast Sodium 10 mg 07/22/20 21:00 07/25/20 21:55 Montelukast 10 Mg Tab PO 10 mg HS DIO Administration Multi-Ingred Cream/Lotion/Oil/Oint 1 applic 07/23/20 07:09 07/24/20 21:18 Artificial Tears Ointment 3.5 Gm Tube BOTH EYES 1 applic QID PRN Administration Dry Eye(s) Naloxone HCl 0.2 mg 07/21/20 21:16 Naloxone 0.4 Mg/Ml 1 Ml Vial IV Q2M PRN Opioid Reversal Nystatin 500,000 unit 07/22/20 18:41 07/24/20 21:18 Nystatin 100,000 Unit/Ml Susp 500,000 Unit/5 Ml Cup PO 500,000 unit QID PRN Administration THRUSH Pantoprazole Sodium 40 mg 07/24/20 07:30 07/26/20 09:04 Pantoprazole 40 Mg Tablet PO 40 mg [id number] DIO Administration Potassium Chloride 60 meq 07/22/20 21:00 07/26/20 09:07 Potassium Chloride Er 20 Meq Tab.Er PO Not Given BID DIO Pravastatin Sodium 10 mg 07/22/20 21:00 07/25/20 21:54 Pravastatin Sodium 20 Mg Tab PO 10 mg HS DIO Administration Pregabalin 100 mg 07/22/20 22:00 07/26/20 15:37 Pregabalin 100 Mg Cap PO 100 mg TID DIO Administration Promethazine HCl 6.25 mg 07/22/20 19:27 Promethazine Hcl 6.25 Mg/5 Ml Cup PO Q4H PRN Cough Spironolactone 25 mg 07/22/20 22:00 07/26/20 15:37 Spironolactone 25 Mg Tab PO 25 mg TID DIO Administration Trazodone HCl 75 mg 07/22/20 21:00 07/25/20 21:41 Trazodone Hcl 50 Mg Tab PO 75 mg HS DIO Administration Zinc Sulfate 220 mg 07/23/20 09:00 07/26/20 09:04 Zinc Sulfate 220 Mg Cap PO 220 mg DAILY DIO Administration Objective - Vital Signs Vital signs: Vital Signs Temp 98.7 F 07/26/20 18:09 Pulse 87 07/26/20 18:09 Resp 16 07/26/20 18:09 BP 105/71 07/26/20 18:09 Pulse Ox 96 07/26/20 18:09 Intake & Output 07/26/20 07/26/20 07/27/20 06:59 18:59 06:59 Output Total 350 Balance -350 Output: Urine 350 Other: Voiding Method Indwelling Catheter - Exam GENERAL: The patient is alert and oriented x3, not in any acute distress. Well developed, well nourished. HEENT: Pupils are round and equally reacting to light. EOMI. No scleral icterus. No conjunctival pallor. Normocephalic, atraumatic. No pharyngeal erythema. No thyromegaly. CARDIOVASCULAR: S1 and S2 present. No murmurs, rubs, or gallops. -PULMONARY: Chest is clear to auscultation, no wheezing bilateral scattered crepitation ABDOMEN: Soft, nontender, nondistended, normoactive bowel sounds. No palpable organomegaly. MUSCULOSKELETAL: No joint swelling or deformity. EXTREMITIES: No cyanosis, clubbing, or pedal edema. NEUROLOGICAL: Gross neurological examination did not reveal any focal deficits. SKIN: No rashes. no petechiae. - Labs CBC & Chem 7: 07/26/20 06:43 07/26/20 06:43 Labs: Abnormal Lab Results - Last 24 Hours (Table) 07/25/20 07/25/20 07/26/20 Range/Units 20:33 22:07 00:27 Hgb (11.4-16.0) gm/dL MCV (80.0-100.0) fL MCH (25.0-35.0) pg MCHC (31.0-37.0) g/dL RDW (11.5-15.5) % BUN (9.0-27.0) mg/dL BUN/Creatinine Ratio (12.00-20.00) Ratio Glucose (70-110) mg/dL POC Glucose (mg/dL) 302 H 336 H 295 H (75-99) mg/dL 07/26/20 07/26/20 07/26/20 Range/Units 06:43 06:43 07:05 Hgb 10.4 L (11.4-16.0) gm/dL MCV 72.9 L (80.0-100.0) fL MCH 22.3 L (25.0-35.0) pg MCHC 30.5 L (31.0-37.0) g/dL RDW 17.8 H (11.5-15.5) % BUN 39.0 H (9.0-27.0) mg/dL BUN/Creatinine Ratio 43.33 H (12.00-20.00) Ratio Glucose 242 H (70-110) mg/dL POC Glucose (mg/dL) 236 H (75-99) mg/dL 07/26/20 07/26/20 Range/Units 11:32 16:32 Hgb (11.4-16.0) gm/dL MCV (80.0-100.0) fL MCH (25.0-35.0) pg MCHC (31.0-37.0) g/dL RDW (11.5-15.5) % BUN (9.0-27.0) mg/dL BUN/Creatinine Ratio (12.00-20.00) Ratio Glucose (70-110) mg/dL POC Glucose (mg/dL) 250 H 171 H (75-99) mg/dL Microbiology - Last 24 Hours (Table) 07/21/20 19:12 Blood Culture - Preliminary Blood No Growth after 96 hours Assessment and Plan Assessment: -Acute comment pneumonia, continue with steroids in the form of Solu- Medrol,remdesivir , vitamin C and ascorbic acid. Pulmonary critical care team/consult, Lovenox -Acute hypoxic respiratory failure secondary to above, continue with BiPAP as needed and oxygen as needed -Increased inflammatory markers secondary to cholelithiasis infection. -Mild acute kidney injury Diabetes mellitus Hypertension Hyperlipidemia History of common variable immunoglobulin deficiency History of asthma/COPD Chronic back pain History of arterial insufficiency on steroids depending Hiatal hernia History of MRSA DVT prophylaxis: Lovenox GI prophylaxis: Protonix Prognosis is guarded
[2020-07-26] MEDS: AMITRIPTYLINE HCL 10 MG TAB PO SCH (21:46)
[2020-07-26] MEDS: traZODone HCL 50 MG TAB PO SCH (21:46)
[2020-07-26] MEDS: PRAVASTATIN SODIUM 20 MG TAB PO SCH (21:48)
[2020-07-26] MEDS: MONTELUKAST 10 MG TAB PO SCH (21:49)
[2020-07-26] MEDS: CYCLOBENZAPRINE 10 MG TAB PO PRN (21:53)
[2020-07-27] MEDS: methylPREDNISolone SOD SUCCI 40 MG/ML 1 ML VIAL IV SCH ×2 (01:28→08:16)
--- NOTE | 2020-07-27 07:15 | XR ---
EXAMINATION TYPE: XR chest 1V portable DATE OF EXAM: 07/27/2020 CLINICAL HISTORY: Difficulty breathing progress study. TECHNIQUE: Single AP portable upright view of the chest is obtained. COMPARISON: Chest x-ray from one day earlier and older studies. FINDINGS: Right internal jugular Mediport catheter is redemonstrated. There is background chronic pa renchymal change and elevated left hemidiaphragm with persistent left greater than right bibasilar op acities. Background low lung volumes redemonstrated. The cardiac silhouette size is stable and upper limits of normal with atherosclerotic change aortic knob. Osseous structures remain somewhat deminer alized. IMPRESSION: Low lung volumes and chronic parenchymal changes with persistent patchy bibasilar infiltr ate and/or atelectasis. No significant interval change from most recent study.
[2020-07-27 07:17] LABS: Glucose,Whole Blood 277 mg/dL (75-99)
[2020-07-27] MEDS: HYDROcodone/APAP 5-325MG 1 EACH TAB PO PRN (07:56)
[2020-07-27] MEDS: busPIRone HCl 10 MG TAB PO SCH (07:57)
[2020-07-27] MEDS: FAMOTIDINE 20 MG TAB PO SCH (07:57)
[2020-07-27] MEDS: LEVOFLOXACIN 750 MG TAB PO SCH (07:57)
[2020-07-27] MEDS: ALPRAZolam 0.5 MG TAB PO SCH ×2 (07:57→17:30)
[2020-07-27] MEDS: ESCITALOPRAM 10 MG TAB PO SCH (07:57)
[2020-07-27] MEDS: CHOLECALCIFEROL 1,000 UNIT TAB PO SCH (07:57)
[2020-07-27] MEDS: INSULIN ASPART (NovoLOG) 100 UNIT/ML VIAL SQ SCH ×3 (07:58→17:31)
[2020-07-27] MEDS: ASCORBIC ACID 500 MG TAB PO SCH (07:58)
[2020-07-27] MEDS: FUROSEMIDE 20 MG TAB PO SCH (07:58)
[2020-07-27] MEDS: buPROPion XL 150 MG TAB.ER.24H PO SCH (07:59)
[2020-07-27] MEDS: ENOXAPARIN 40 MG/0.4 ML SYRINGE SQ SCH (07:59)
[2020-07-27] MEDS: SPIRONOLACTONE 25 MG TAB PO SCH ×2 (08:15→17:30)
[2020-07-27] MEDS: POTASSIUM CHLORIDE ER 20 MEQ TAB.ER PO SCH (08:15)
[2020-07-27] MEDS: ZINC SULFATE 220 MG CAP PO SCH (08:15)
[2020-07-27] MEDS: PANTOPRAZOLE 40 MG TABLET PO SCH (08:15)
[2020-07-27] MEDS: PREGABALIN 100 MG CAP PO SCH ×2 (08:15→17:30)
[2020-07-27] MEDS: ALBUTEROL HFA INHALER INHALATION SCH ×3 (08:51→16:27)
[2020-07-27 10:16] LABS: C Reactive Protein 0.6 mg/dL (0.0-0.8)
[2020-07-27] MEDS: FLUTICASONE 50MCG/SPRAY NASAL 16GM EA NOSTRIL SCH (10:33)
[2020-07-27 11:06] VITALS: RESP 18
[2020-07-27 11:51] LABS: Glucose,Whole Blood 345 mg/dL (75-99)
[2020-07-27] MEDS ORDERED: HYDROcodone/APAP 7.5-325MG 1 EACH TAB PO PRN (11:57)
[2020-07-27] MEDS: MAGNESIUM OXIDE 400 MG TAB PO SCH (14:32)
[2020-07-27 15:21] VITALS: BP 123/71; PULSE 88; TEMP 97.8
[2020-07-27 16:52] LABS: Glucose,Whole Blood 237 mg/dL (75-99)
--- NOTE | 2020-07-27 19:28 | PN ---
PROGRESS NOTE PULMONARY/CRITICAL CARE PROGRESS NOTE: DATE OF SERVICE: 07/27/2020 This is a 65-year-old female who was admitted back on July 21. She came in with a diagnosis of acute COVID-19 pneumonia/pneumonitis with hypoxemic respiratory failure. The patient does have a history of severe persistent chronic bronchial asthma and does have chronic hypoxemic respiratory failure. This admission was for acute on chronic hypoxemic respiratory failure complicated by the coronavirus infection. She did receive Remdesivir. She did finish her five days. She is doing better. She is on O2 at 3 L. She typically uses 2-3 L at home, mostly at nighttime. She would love to be able to be discharged home. I told her that was up to the primary. Overall, she is feeling much improved. She is clinically much better. PHYSICAL EXAMINATION: VITAL SIGNS: Current vital signs are reviewed. Temperature 97.8, heart rate 88, respiratory rate 18, blood pressure 123/71, mean 88, room air saturation 98%. She appears in no acute distress. HEENT: Examination is grossly unremarkable. NECK: Supple. Full range of motion. No adenopathy. Neck veins are flat. CARDIOVASCULAR: Examination reveals regular rhythm and rate. S1, S2 normal. No S3, S4, or murmur. Heart sounds are distant. LUNGS: Reveal diffuse mild coarse rhonchi. There are no crackles. No wheezes. Breath sounds equal. ABDOMEN: Soft. Bowel sounds are heard. EXTREMITIES are intact. No cyanosis, clubbing, or edema. SKIN: Without rash. NEUROLOGIC: Examination is brief but nonfocal. LAB DATA: Reviewed. Nothing new from today other than a D-dimer 0.94, a glucose of 237 and LDH of 261. C-reactive protein 0.6. Microbiology is currently negative. The most recent chest x-ray was done today and shows low lung volumes with chronic parenchymal patchy abnormalities. CURRENT MEDICATIONS: Reviewed. She is currently on Tylenol, albuterol inhaler, Xanax, Elavil, Artificial Tears, vitamin C, Wellbutrin, BuSpar, vitamin D3, Flexeril, Lovenox, Lexapro, Pepcid, Flonase nasal spray, Lasix, Mucinex, [place], insulin, Levaquin, Mag-Ox, Singulair, Narcan, nystatin oral suspension, Protonix, potassium replacement, pravastatin, prednisone Lyrica, Phenergan syrup with codeine, Aldactone, Desyrel, and zinc. ASSESSMENT: 1. Acute on chronic hypoxemic respiratory failure secondary to COVID-19 pneumonitis/pneumonia, complicated in a patient with severe persistent chronic bronchial asthma. 2. History of tracheobronchomalacia. 3. Common variable immunodeficiency syndrome. 4. Chronic steroid use and chronic steroid dependence. 5. Prior history of atypical mycobacterial infection. 6. History of glaucoma. 7. History of fibromyalgia next history of spine fracture. 8. Diabetes mellitus, type 2. 9. Chronic pain syndrome. PLAN: The patient is apparently being considered for possible discharge. She can be discharged home on the remaining days of Decadron. Alternatively, she can go home on prednisone with a burst and taper. The patient should stay on vitamin C, vitamin D3, and zinc. Follow up with Dr. Kothari in the office. No additional recommendations are made. Prognosis is guarded. For the time being I would say on oxygen at 2-3 L, 24/365. MMODL / IJN: [id number] /
--- NOTE | 2020-07-28 02:10 | P.DS ---
Providers Date of admission: 07/21/20 20:17 Attending physician: Demarco Hart Consults: 07/21/20 21:16 Consult Physician Routine Consulting Provider: Baltazar Valdes Consult Reason/Comments: COVID pneumonia; Hypoxia; Critical care Do you want consulting provider notified?: Already Contacted Primary care physician: Ponce Kothari [facility] Course: Diagnoses: -Acute community acquired pneumonia, improved and cleared by pulmonary service -Acute hypoxic respiratory failure secondary to above, and oxygen came back to baseline upon discharge -Increased inflammatory markers secondary to cholelithiasis infection. -Mild acute kidney injury, improved Diabetes mellitus Hypertension Hyperlipidemia History of common variable immunoglobulin deficiency History of asthma/COPD Chronic back pain History of arterial insufficiency on steroids depending Hiatal hernia History of MRSA Hospital course: This is a 65-year-old female with history of severe persistent asthma, cerebral immunoglobulin deficiency syndrome, chronic steroid dependence, degenerative joint disease, osteoporosis, medical debility tracheobronchomalacia, hypertension, type 2 diabetes, patient presented to the ER with 1 week history of shortness of breath. Patient found to have severe asthma on the top of Covid pneumonia. Patient has been evaluated by the pulmonary service she was treated with Solu-Medrol 40 mg, Levaquin empirically, receives also remdesivir. Patient showed interval improvement and she is back to her baseline oxygen requirement, dyspnea is subsided. No chest pain. No change in urine or bowel habits. No fever Patient was cleared for discharge by pulmonary service Problems and management plan were discussed with the patient and he verbalized understanding and acceptance Patient was found stable and can be discharged home however he needs follow-up as an outpatient. Patient was instructed to follow up with PCP Dr. kothari within one week and patient agrees Gen: patient is a AAOx3, no distress CVS: S1-S2, RRR, no murmur Lungs: B/L CTA, no wheezing Abdomen: soft, no distention, no tenderness, positive bowel sounds Extremity: no leg edema or induration Time spent more than 35 minutes Patient Condition at Discharge: Serious Plan - Discharge Summary New Discharge Prescriptions: New Fluticasone Nasal [place] [Flonase Nasal [place]] 1 spray EA NOSTRIL DAILY spr guaiFENesin [Mucinex] 600 mg PO BID PRN tablet.er PRN Reason: Congestion Zinc Sulfate [Orazinc] 220 mg PO DAILY #30 cap Famotidine [Pepcid] 20 mg PO DAILY #30 tab predniSONE 10 mg PO DIRECTED #50 tab Acetaminophen Tab [Tylenol] 650 mg PO Q6HR PRN tab PRN Reason: Mild Pain Or Fever > 100.5 Ascorbic Acid [Vitamin C] 500 mg PO BID #60 tab Cholecalciferol [Vitamin D3 (25 Mcg = 1000 Iu)] 2,000 unit PO DAILY #30 tab Continue Escitalopram [Lexapro] 30 mg PO QAM Spironolactone [Aldactone] 25 mg PO TID Potassium Chloride ER [K-Dur 20] 60 meq PO BID Amitriptyline HCl [Elavil] 30 mg PO HS traZODone HCL 75 mg PO HS buPROPion XL [Wellbutrin XL] 450 mg PO DAILY Insulin Aspart (For Pump) [NovoLOG (For Pump)] 0.01 unit SQ-PUMP CONTINUOUS Pregabalin [Lyrica] 100 mg PO TID Fluticasone/Salmeterol [Advair Hfa 230-21 Mcg Inhaler] 2 puff INHALATION RT- BID Montelukast [Singulair] 10 mg PO HS Nystatin 500,000 unit PO QID PRN PRN Reason: THRUSH Budesonide [Pulmicort] 0.5 mg INHALATION RT-BID Hydrocodone/Acetaminophen [[place] 5-325] 1 tab PO Q6HR PRN 3 Days #10 tab PRN Reason: Pain guaiFENesin [Mucinex] 600 mg PO BID PRN PRN Reason: Congestion Vitamin B-Complex W/Vit C 1 tab PO DAILY Ascorbic Acid [Vitamin C] 1,000 mg PO DAILY Pravastatin Sodium [Pravachol] 10 mg PO HS Pantoprazole [Protonix] 40 mg PO DAILY Fluticasone Nasal [place] [Flonase Nasal [place]] 1 spray EA NOSTRIL DAILY busPIRone HCl [Buspar] 20 mg PO BID Cyclobenzaprine [Flexeril] 10 mg PO TID PRN PRN Reason: Muscle Pain ALPRAZolam [Xanax] 0.5 mg PO TID ALPRAZolam [Xanax] 0.25 mg PO HS PRN PRN Reason: Anxiety Ubidecarenone [Co Q-10] 200 mg PO DAILY@1200 Furosemide [Lasix] 20 mg PO BID Promethazine 6.25MG/5Ml [Phenergan Syrup] 6.25 mg PO DIRECTED PRN PRN Reason: Cough Magnesium Oxide [Magox 400] 400 mg PO DAILY@1200 Ipratropium-Albuterol Nebulize [Duoneb 0.5 mg-3 mg/3 ml Soln] 3 ml INHALATION RT-TID PRN #1 neb PRN Reason: Shortness Of Breath Levofloxacin [Levaquin] 750 mg PO DAILY 5 Days #5 tab Albuterol Inhaler [Ventolin Hfa Inhaler] 2 puff INHALATION RT-QID PRN #1 puff PRN Reason: Shortness Of Breath Discontinued predniSONE 20 mg PO DAILY Discharge Medication List Escitalopram [Lexapro] 30 mg PO QAM 01/01/14 [History] Spironolactone [Aldactone] 25 mg PO TID 01/01/14 [History] Potassium Chloride ER [K-Dur 20] 60 meq PO BID 11/06/14 [History] Amitriptyline HCl [Elavil] 30 mg PO HS 12/07/14 [History] traZODone HCL 75 mg PO HS 09/10/16 [History] Insulin Aspart (For Pump) [NovoLOG (For Pump)] 0.01 unit SQ-PUMP CONTINUOUS 07/24/17 [History] buPROPion XL [Wellbutrin XL] 450 mg PO DAILY 07/24/17 [History] Fluticasone/Salmeterol [Advair Hfa 230-21 Mcg Inhaler] 2 puff INHALATION RT-BID 04/09/19 [History] Pregabalin [Lyrica] 100 mg PO TID 04/09/19 [History] Montelukast [Singulair] 10 mg PO HS 08/01/19 [History] Nystatin 500,000 unit PO QID PRN 08/01/19 [History] Budesonide [Pulmicort] 0.5 mg INHALATION RT-BID 03/31/20 [History] Hydrocodone/Acetaminophen [[place] 5-325] 1 tab PO Q6HR PRN 3 Days #10 tab 05/07/20 [Rx] ALPRAZolam [Xanax] 0.25 mg PO HS PRN 07/21/20 [History] ALPRAZolam [Xanax] 0.5 mg PO TID 07/21/20 [History] Ascorbic Acid [Vitamin C] 1,000 mg PO DAILY 07/21/20 [History] Cyclobenzaprine [Flexeril] 10 mg PO TID PRN 07/21/20 [History] Fluticasone Nasal [place] [Flonase Nasal [place]] 1 spray EA NOSTRIL DAILY 07/21/20 [History] Furosemide [Lasix] 20 mg PO BID 07/21/20 [History] Magnesium Oxide [Magox 400] 400 mg PO DAILY@1200 07/21/20 [History] Pantoprazole [Protonix] 40 mg PO DAILY 07/21/20 [History] Pravastatin Sodium [Pravachol] 10 mg PO HS 07/21/20 [History] Promethazine 6.25MG/5Ml [Phenergan Syrup] 6.25 mg PO DIRECTED PRN 07/21/20 [History] Ubidecarenone [Co Q-10] 200 mg PO DAILY@1200 07/21/20 [History] Vitamin B-Complex W/Vit C 1 tab PO DAILY 07/21/20 [History] busPIRone HCl [Buspar] 20 mg PO BID 07/21/20 [History] guaiFENesin [Mucinex] 600 mg PO BID PRN 07/21/20 [History] Acetaminophen Tab [Tylenol] 650 mg PO Q6HR PRN tab 07/27/20 [Rx] Albuterol Inhaler [Ventolin Hfa Inhaler] 2 puff INHALATION RT-QID PRN #1 puff 07/27/20 [Rx] Ascorbic Acid [Vitamin C] 500 mg PO BID #60 tab 07/27/20 [Rx] Cholecalciferol [Vitamin D3 (25 Mcg = 1000 Iu)] 2,000 unit PO DAILY #30 tab 07/27/20 [Rx] Famotidine [Pepcid] 20 mg PO DAILY #30 tab 07/27/20 [Rx] Fluticasone Nasal [place] [Flonase Nasal [place]] 1 spray EA NOSTRIL DAILY spr 07/27/20 [Rx] Ipratropium-Albuterol Nebulize [Duoneb 0.5 mg-3 mg/3 ml Soln] 3 ml INHALATION RT-TID PRN #1 neb 07/27/20 [Rx] Levofloxacin [Levaquin] 750 mg PO DAILY 5 Days #5 tab 07/27/20 [Rx] Zinc Sulfate [Orazinc] 220 mg PO DAILY #30 cap 07/27/20 [Rx] guaiFENesin [Mucinex] 600 mg PO BID PRN tablet.er 07/27/20 [Rx] predniSONE 10 mg PO DIRECTED #50 tab 07/27/20 [Rx] Follow up Appointment(s)/Referral(s): Ponce Kothari MD [Primary Care Provider] - 09/06/20 1:30 pm Patient Instructions/Handouts: Viral Pneumonia (DC) Activity/Diet/Wound Care/Special Instructions: cardiac healthy diet activity is limited till you see your doctor Discharge Disposition: HOME SELF-CARE
[2020-07-28] MEDS ORDERED: predniSONE 20 MG TAB PO SCH (09:00)
== END 2020-07-27 17:40 | disposition home or self-care (01) | DRG 177 ==
LOC: EC 17:02 → 6NMEDSUR 20:17 → 2SICU 23:34 → 4SSUR 07-24 23:54
PROVIDERS: ADMIT Hospitalist; ATTEND Hospitalist
PROC: XW033E5 Introduction of Remdesivir Anti-infective into Peripheral Vein, Percutaneous Approach, New Technology Group 5 (ICD-10-PCS; principal; 2020-07-21)
PROC: 30233K1 Transfusion of Nonautologous Frozen Plasma into Peripheral Vein, Percutaneous Approach (ICD-10-PCS; 2020-07-23)
DX: U07.1 COVID-19 (principal); J12.89 Other viral pneumonia; J96.21 Acute and chronic respiratory failure with hypoxia; D83.9 Common variable immunodeficiency, unspecified; E27.40 Unspecified adrenocortical insufficiency; N17.9 Acute kidney failure, unspecified; K21.9 Gastro-esophageal reflux disease without esophagitis; E78.5 Hyperlipidemia, unspecified; M79.7 Fibromyalgia; E11.9 Type 2 diabetes mellitus without complications; F41.9 Anxiety disorder, unspecified; F32.9 Major depressive disorder, single episode, unspecified; H40.9 Unspecified glaucoma; M81.0 Age-related osteoporosis without current pathological fracture; I50.9 Heart failure, unspecified; I11.0 Hypertensive heart disease with heart failure; Z96.41 Presence of insulin pump (external) (internal); K44.9 Diaphragmatic hernia without obstruction or gangrene; G89.29 Other chronic pain; M54.9 Dorsalgia, unspecified; K80.20 Calculus of gallbladder without cholecystitis without obstruction; J45.50 Severe persistent asthma, uncomplicated; J39.8 Other specified diseases of upper respiratory tract; R53.81 Other malaise; Z98.42 Cataract extraction status, left eye; Z98.41 Cataract extraction status, right eye; Z87.01 Personal history of pneumonia (recurrent); Z87.891 Personal history of nicotine dependence; Z79.899 Other long term (current) drug therapy; Z79.52 Long term (current) use of systemic steroids; Z79.51 Long term (current) use of inhaled steroids; Z79.4 Long term (current) use of insulin; Z88.6 Allergy status to analgesic agent; Z88.1 Allergy status to other antibiotic agents; Z88.0 Allergy status to penicillin; Z88.2 Allergy status to sulfonamides; Z88.8 Allergy status to other drugs, medicaments and biological substances; Z90.49 Acquired absence of other specified parts of digestive tract; Z86.14 Personal history of Methicillin resistant Staphylococcus aureus infection; Z80.3 Family history of malignant neoplasm of breast; Z90.89 Acquired absence of other organs; Z98.890 Other specified postprocedural states; Z90.721 Acquired absence of ovaries, unilateral; Z98.51 Tubal ligation status
CPT/HCPCS: 36415; 71045; 71046; 80048; 80053; 81003; 82728; 83605; 83615; 83735; 83880; 84145; 85025; 85027; 85379; 85610; 85730; 86140; 86850; 86900; 86901; 87040; 87635; 93005; 94640; 94660; 96361; 96365; 96366; 96372; 96375; 99285

== ENCOUNTER → 2020-09-15 | Outpatient (CLI) | payer MEDICARE ==
[2020-09-15 10:26] VITALS: BP 150/69; PULSE 96; RESP 20; TEMP 98.4
--- NOTE | 2020-09-15 11:17 | P.HPOB ---
History of Present Illness H&P Date: 09/15/20 Chief Complaint: The patient is here for her routine gynecologic exam. This is a 65-year-old with an LMP of 1998. The patient is without gynecologic complaints and denies any postmenopausal bleeding. The patient and her , Jonathan, state that she has an appointment to see Dr. Almeida, the neurologist, for some right sided weakness and issues with memory and confusion since her back surgery in 2019. Review of Systems She has lost 4 pounds over the past year. She denies respiratory, cardiac and G.I. problems. She denies maltreatment. She uses a walker and wheelchair. : Has had all occasion where she has to get to the bathroom right away. Past Medical History Past Medical History: Asthma, COPD, Diabetes Mellitus, Eye Disorder, Fibromyalgia, GERD/Reflux, Hyperlipidemia, Hypertension, Musculoskeletal Disorder, Pneumonia, Respiratory Disorder, Skin Disorder Additional Past Medical History / Comment(s): Bronchial asthma, tracheobronchomalacia, common variable immunoglobulin deficiency. Chronic back problems. chronic steroid use, suspected component of adrenal insufficiency due to chronic steroid use. Hiatal hernia. Pneumonia / In ICU in [place] after Back surgery - March 2019. Mycobacterium gordonae soft tissue infection. cataracts, glaucoma, fibromyalgia, chronic pain, compression fracture of the spine. 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 History of Any Multi-Drug Resistant Organisms: MRSA Date of last positivie culture/infection: 2010 MDRO Source:: right hand Past Surgical History: Appendectomy, Back Surgery, Breast Surgery, Cholecystectomy, Tubal Ligation Additional Past Surgical History / Comment(s): MULT BRONCHS, WASHINGS, LAST 04/17/14. EXC [facility] CATARACT. BLEPHAROPLASTY/ R&L BREAST BIOPSIES; PORT A CATH IN LEFT CHEST-CHANGED TO RT CHEST,EXC MYCOBACTERIUM AREAS RT ARM 2011; UPPER TEETH EXTRACTED. RT SALPINGECTOMY/FALLOPIAN TUBE REMOVED, I&D BOIL.Jul [facility] EYE AND MUSCLE SURGERY; - mouth (bone) surgery. Pain pump insertion to left buttocks - October 2016. Colonoscopy 2014. Hiatal hernia surgeries 2014&2016. Back surgery (Decompresssion) - February 2019 Past Anesthesia/Blood Transfusion Reactions: Motion Sickness, Postoperative Nausea & Vomiting (PONV) Past Psychological History: Anxiety, Depression Additional Psychological History / Comment(s): . Lives in the family home with her . Not employed outside of the home. Lifelong nonsmoker. No significant history of alcohol use. No history of recreational drug use. No international travels. There are pet dogs in the home. There are still children in the home that they are responsible for. Smoking Status: Never smoker Past Alcohol Use History: None Reported Past Drug Use History: None Reported Additional History: She is and does not work outside of the home. - Past Family History Mother Family Medical History: Cancer Additional Family Medical History / Comment(s): BREAST CANCER. Father Additional Family Medical History / Comment(s): r/t suicide Medications and Allergies Home Medications Medication Instructions Recorded Confirmed Type Escitalopram [Lexapro] 30 mg PO QAM 01/01/14 09/15/20 History Spironolactone [Aldactone] 25 mg PO TID 01/01/14 09/15/20 History Potassium Chloride ER [K-Dur 20] 60 meq PO BID 11/06/14 09/15/20 History Amitriptyline HCl [Elavil] 30 mg PO HS 12/07/14 09/15/20 History traZODone HCL 75 mg PO HS 09/10/16 09/15/20 History Insulin Aspart (For Pump) [NovoLOG 0.01 unit SQ-PUMP CONTINUOUS 07/24/17 09/15/20 History (For Pump)] buPROPion XL [Wellbutrin XL] 450 mg PO DAILY 07/24/17 09/15/20 History Fluticasone/Salmeterol [Advair Hfa 2 puff INHALATION RT-BID 04/09/19 09/15/20 History 230-21 Mcg Inhaler] Pregabalin [Lyrica] 100 mg PO TID 04/09/19 09/15/20 History Montelukast [Singulair] 10 mg PO HS 08/01/19 09/15/20 History Nystatin 500,000 unit PO QID PRN 08/01/19 09/15/20 History Budesonide [Pulmicort] 0.5 mg INHALATION RT-BID 03/31/20 09/15/20 History Hydrocodone/Acetaminophen [[place] 1 tab PO Q6HR PRN 3 Days #10 tab 05/07/20 09/15/20 Rx 5-325] ALPRAZolam [Xanax] 0.25 mg PO HS PRN 07/21/20 09/15/20 History ALPRAZolam [Xanax] 0.5 mg PO TID 07/21/20 09/15/20 History Cyclobenzaprine [Flexeril] 10 mg PO TID PRN 07/21/20 09/15/20 History Furosemide [Lasix] 20 mg PO BID 07/21/20 09/15/20 History Magnesium Oxide [Magox 400] 400 mg PO DAILY@1200 07/21/20 09/15/20 History Pantoprazole [Protonix] 40 mg PO DAILY 07/21/20 09/15/20 History Pravastatin Sodium [Pravachol] 10 mg PO HS 07/21/20 09/15/20 History Promethazine 6.25MG/5Ml [Phenergan 6.25 mg PO DIRECTED PRN 07/21/20 09/15/20 History Syrup] Ubidecarenone [Co Q-10] 200 mg PO DAILY@1200 07/21/20 09/15/20 History Vitamin B-Complex W/Vit C 1 tab PO DAILY 07/21/20 09/15/20 History busPIRone HCl [Buspar] 20 mg PO BID 07/21/20 09/15/20 History Acetaminophen Tab [Tylenol] 650 mg PO Q6HR PRN tab 07/27/20 09/15/20 Rx Albuterol Inhaler [Ventolin Hfa 2 puff INHALATION RT-QID PRN #1 07/27/20 09/15/20 Rx Inhaler] puff Cholecalciferol [Vitamin D3 (25 2,000 unit PO DAILY #30 tab 07/27/20 09/15/20 Rx Mcg = 1000 Iu)] Famotidine [Pepcid] 20 mg PO DAILY #30 tab 07/27/20 09/15/20 Rx Fluticasone Nasal [place] [Flonase 1 spray EA NOSTRIL DAILY spr 07/27/20 09/15/20 Rx Nasal [place]] Ipratropium-Albuterol Nebulize 3 ml INHALATION RT-TID PRN #1 neb 07/27/20 09/15/20 Rx [Duoneb 0.5 mg-3 mg/3 ml Soln] Levofloxacin [Levaquin] 750 mg PO DAILY 5 Days #5 tab 07/27/20 09/15/20 Rx Zinc Sulfate [Orazinc] 220 mg PO DAILY #30 cap 07/27/20 09/15/20 Rx guaiFENesin [Mucinex] 600 mg PO BID PRN tablet.er 07/27/20 09/15/20 Rx predniSONE 10 mg PO DIRECTED #50 tab 07/27/20 09/15/20 Rx Ascorbic Acid [Vitamin C] 2,000 mg PO DAILY 09/15/20 09/15/20 History Allergies Allergy/AdvReac Type Severity Reaction Status Date / Time crisaborole [From Eucrisa] Allergy Rash/Hives Verified 09/15/20 10:41 indomethacin sodium Allergy severe Verified 09/15/20 10:41 [From Indocin] Confusion cefuroxime axetil AdvReac Severe Abdominal Verified 09/15/20 10:41 [From Ceftin] Pain ciprofloxacin HCl AdvReac Severe Abdominal Verified 09/15/20 10:41 [From Cipro] Pain erythromycin base AdvReac Unknown Abdominal Verified 09/15/20 10:41 [Erythromycin Base] Pain sulfamethoxazole AdvReac Unknown Abdominal Verified 09/15/20 10:41 [From Bactrim] Pain trimethoprim [From Bactrim] AdvReac Unknown Abdominal Verified 09/15/20 10:41 Pain NSAIDS (Non-Steroidal AdvReac Dyspnea Verified 09/15/20 10:41 Anti-Inflamma Penicillins AdvReac Nausea & Verified 09/15/20 10:41 Vomiting Sulfa (Sulfonamide AdvReac Abdominal Verified 09/15/20 10:41 Antibiotics) Pain Exam Vital Signs Temp Pulse Resp BP Pulse Ox 09/15/20 10:23 98.4 F 96 20 150/69 97 Intake and Output 09/14/20 09/15/20 09/15/20 22:59 06:59 14:59 Other: Weight 54.885 kg Height 5 feet 0 inches, weight 121 pounds, BMI 23.2. This is a well-developed well-nourished white female who is alert and oriented times 3 in no acute distress. The patient requires assistance with walking. She needs assistance getting on and off of the exam table. HEENT: Within normal limits. NECK: Supple without mass or thyromegaly. CHEST AND LUNGS: Clear to auscultation. HEART: Regular rate and rhythm. BREASTS: Are without mass or discharge. AXILLARY EXAM: Negative for adenopathy. BACK: Negative for CVA tenderness. ABDOMEN: Soft, nontender, without palpable masses. PELVIC EXAM: Normal external genitalia with mild to moderate atrophy. Cervix and vagina appear normal with mild atrophy. There is no unusual discharge. There is no evidence of prolapse. The uterus is midposition, nongravid size and nontender. There are no palpable adnexal masses or tenderness. RECTAL EXAM: Rectovaginal exam is negative for mass or tenderness and is negative for occult blood. EXTREMITIES: Nontender. Lower extremities show signs of moderate muscle wasting. IMPRESSION: 1. 65-year-old menopausal female with normal gynecologic exam. 2. 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 3. Multiple medical problems. PLAN: 1. Pap smears have been discontinued since she has had adequate screening with no history of significant cervical problems. 2. Self breast awareness was discussed with the patient. 3. Screening mammogram is scheduled for 10/22/2020 and the order slip was given to the patient for this. 4. Osteoporosis management was discussed. I have stressed the importance of adequate calcium, vitamin D and regular exercise. Recommended amounts of calcium and vitamin D were also discussed. 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 5. She did receive her flu shot this fall and plans on getting the COVID vaccination when it is available to her. 6. She was advised to return in one year for her annual well woman exam.
== END | disposition home or self-care (01) ==
LOC: WWCWWP 09:45
PROVIDERS: ATTEND Obstetrics & Gynecology
DX: Z53.9 Procedure and treatment not carried out, unspecified reason (principal)

== ENCOUNTER → 2020-10-14 | Outpatient (CLI) | payer MEDICARE ==
--- NOTE | 2020-10-14 23:20 | MR ---
EXAMINATION TYPE: MR brain wo con DATE OF EXAM: 10/14/2020 COMPARISON: CT brain August 19, 2019 HISTORY: Confusion, cognitive impairment, right sided weakness, memory loss, difficulty walking TECHNIQUE: Multiplanar, multisequence imaging of the brain and brainstem is performed without IV cont rast. FINDINGS: Diffusion weighted images demonstrate no evidence of a recent infarct or other diffusion abnormality. There is mild ventricular and sulcal prominence. There are focal and confluent areas of T2 hyperinten sity seen throughout the white matter bilaterally. Lesions are nonspecific in appearance and distribu tion. Midline structures demonstrate normal morphology. The craniocervical junction appears within normal limits. Normal vascular flow voids are present. Mucosal thickening and patchy fluid left sphenoid sin us. Mild mucosal thickening involving ethmoid sinuses bilaterally left greater than right. IMPRESSION: 1. Mild diffuse age-related cerebral atrophy and fairly advanced nonspecific white matter changes most likely on basis of product of chronic small vessel ischemic change in patient of this a ge. Acute on chronic paranasal sinus disease.
== END | disposition home or self-care (01) ==
LOC: RADMRIMAIN 10:16
PROVIDERS: ATTEND Psychiatry & Neurology Neurology
DX: G31.1 Senile degeneration of brain, not elsewhere classified (principal); R90.82 White matter disease, unspecified
CPT/HCPCS: 70551

== ENCOUNTER → 2020-10-18 | Outpatient (CLI) | payer MEDICARE ==
[2020-10-18 15:58] LABS: % Iron Saturation 3.42 (12.00-45.00); Folate, Serum >24.0 ng/mL; Iron 14 ug/dL (50-170); Total Iron Binding Capacity 409 ug/dL (228-460)
== END | disposition home or self-care (01) ==
LOC: LABWHC1 09:38
PROVIDERS: ATTEND Internal Medicine Critical Care Medicine
DX: D64.9 Anemia, unspecified (principal); R53.83 Other fatigue; R53.1 Weakness; Z86.2 Personal history of diseases of the blood and blood-forming organs and certain disorders involving the immune mechanism
CPT/HCPCS: 36415; 82607; 82746; 83540; 83550

== ENCOUNTER → 2020-10-22 | Outpatient (CLI) | payer MEDICARE ==
--- NOTE | 2020-10-25 11:40 | MM ---
Reason for exam: screening (asymptomatic). Last mammogram was performed 6 months ago. History: Patient is postmenopausal. Family history of breast cancer in mother at age 75 and breast cancer in maternal grandmother at age 75. Benign MG stereo VAD BX RT of the right breast, October 17, 2019. Benign excisional biopsy of the right breast, 1989. Excisional biopsy of the left breast. Took estrogen for 6 years. Physical Findings: A clinical breast exam by your physician is recommended on an annual basis and results should be correlated with mammographic findings. MG 3D Screening Mammo W/Cad Bilateral CC and MLO view(s) were taken. Prior study comparison: April 19, 2020, right breast MG 3d diag mammo w/cad RT. June 18, 2019, bilateral MG 3d diag mammo w/cad [facility]. The breast tissue is heterogeneously dense. This may lower the sensitivity of mammography. There are benign appearing round, vascular calcifications bilaterally. Previous mammotome biopsy in the right breast. Asymmetric breast tissue left central breast, stable. There is no discrete abnormality. ASSESSMENT: Benign, BI-RAD 2 RECOMMENDATION: Routine screening mammogram of both breasts in 1 year.
== END | disposition home or self-care (01) ==
LOC: RADMAMWWP 10:11
PROVIDERS: ATTEND Surgery
DX: Z12.31 Encounter for screening mammogram for malignant neoplasm of breast (principal)
CPT/HCPCS: 77063; 77067

== ENCOUNTER → 2020-10-28 | Outpatient (CLI) | payer MEDICARE ==
[2020-10-28 10:46] VITALS: BP 129/66; PULSE 88; RESP 20; TEMP 98.7
--- NOTE | 2020-10-28 11:13 | P.PN ---
Subjective Progress Note Date: 10/28/20 Principal diagnosis: fibrocystic breast disease Alley is a 65 year old white female with a routine screening mammogram on 06-18-19. The mammogram showed grouped calcifications in the subarolar region of the right breast. She was seen in consultation for Dr. Wang regarding best treatment approach for these. The patient does not feel any masses or lumps in her breast. She has no complaints of any recent infection or trauma to the breast. She underwent a stereo biopsy of the calcifications in September 2019. Pathology revealed fibrocystic changes including hyalinizing stromal fibrosis and calcifications. Since that time she is not complaining of any pain masses lumps or nodules in her breast. Six-month right breast mammogram was done on 04-19-20. This was benign BIRAD 2 , routine screening of both breast in 6 months is recommended. Patient was hospitalized June with [facility]. She had her routine bilateral screening mammogram on 10-22-20. The results were benign BIRAD 2. The patient does not have any lumps masses or nodules of concern in her breast. No nipple discharge or skin changes of concern. History is obtained from her as the patient has memory difficulties. Family History: mother: breast cancer maternal grandmother: breast cancer Hormonal History: menarche: 13 , breast fed: no, first at 16, (11 children 8 adopted) menopause: 48 BCP: none, hormones: none Past Surgical History: gallbladder eye arm soft tissue lesions no cancer decompression of lower lumbar area pain pump left hip Medical History: decreased memory/ following with DR. Almeida brain MRI no definite findings as per family ? CVA asthma (steroid dependant) diabetic (steroid induced) osteoarthritis immune compromised (steriod and gets IGG treatments) COPD 02 dependant at night Social History: smoke: none alcohol: none drugs: none - Constitutional Constitutional: Reports sweats, Denies chills, Denies fever - EENT Comment: decreased vision Eyes: bilateral decreased vision, denies pain Ears: bilateral: tinnitus, deny: decreased hearing Ears, nose, mouth and throat: Reports sore throat, Denies headache - Breasts Breasts: bilateral: as per HPI - Cardiovascular Cardiovascular: Reports shortness of breath, Denies chest pain - Respiratory: asthma - Gastrointestinal Gastrointestinal: Denies abdominal pain, Denies diarrhea, Denies nausea, Denies vomiting - Genitourinary (Female) Genitourinary: Denies dysuria, Denies hematuria - Menstruation Menstruation: Reports postmenopausal - Musculoskeletal Comment: osteoarthritis back DJD - Integumentary Integumentary: Denies pruritus, Denies rash - Neurological Comment: spinal stenosis, poor memory worse latter in the day - Psychiatric Psychiatric: Reports anxiety, Reports depression - Endocrine Comment: diabetes Endocrine: Reports fatigue - Hematologic/Lymphatic Comment: none - Allergic/Immunologic Allergic/Immunologic: Reports as per HPI Objective - Vital Signs Vital signs: Vital Signs Temp 98.7 F 10/28/20 10:44 Pulse 88 10/28/20 10:44 Resp 20 10/28/20 10:44 BP 129/66 10/28/20 10:44 Pulse Ox 95 10/28/20 10:44 Intake & Output 10/27/20 10/28/20 10/28/20 18:59 06:59 18:59 Weight 56.699 kg - Exam BMI 24 - Constitutional General appearance: Present: average body habitus - EENT Eyes: Present: EOMI ENT: Present: hearing grossly normal - Neck Neck: Present: normal ROM - Respiratory Respiratory: bilateral: CTA - Cardiovascular Rhythm: regular Heart sounds: normal: S1, S2 - Integumentary Integumentary: Present: normal turgor - Musculoskeletal Musculoskeletal Comment(s): wheel chair secondary to weak legs - Psychiatric Psychiatric Comment(s): very poor memory, giving history - Additional findings Additional findings: breast exam: BRA: 38C inspection: grade 2/3 ptosis bilateral palpation: right breast: Examination reveals fibrocystic changes, no dominate masses or nodules of concern right axilla: No adenopathy of concern Left breast: Examination reveals fibrocystic changes, no dominant masses or nodules of concern Left axilla: No adenopathy of concern patient has a tattoo over her chest wall Port in place on the right chest wall for immunoglobulin therapy Assessment and Plan Assessment: Impression: decreased memory/ following with DR. Almeida brain MRI no definite findings as per family ? CVA asthma (steroid dependant) diabetic (steroid induced) osteoarthritis immune compromised (steriod and gets IGG treatments) COPD 02 dependant at night fibrocystic breast changes BIRAD 2 mammogram on 10-22-20 Plan: 1. bilateral mammogram 1 year 2. continue medical managment 3. call if any questions of concern Case discussed with patient with very poor memory. The patient is seen with 1 stable chronic illness which is fibrocystic breast disease She has her mammogram reviewed and a unique test was ordered which is a another mammogram in 1 year/ patients history obtained form her The patient is considered low risk of morbidity from the additional diagnostic testing
== END | disposition home or self-care (01) ==
LOC: WWCWWP 10:27
PROVIDERS: ATTEND Surgery
DX: N60.12 Diffuse cystic mastopathy of left breast (principal); N60.11 Diffuse cystic mastopathy of right breast; J45.909 Unspecified asthma, uncomplicated; E11.9 Type 2 diabetes mellitus without complications; J44.9 Chronic obstructive pulmonary disease, unspecified; Z99.81 Dependence on supplemental oxygen; M19.90 Unspecified osteoarthritis, unspecified site; Z79.51 Long term (current) use of inhaled steroids; Z79.4 Long term (current) use of insulin; Z79.899 Other long term (current) drug therapy

== ENCOUNTER 2020-11-07 09:51 | Emergency (ER) | payer MEDICARE ==
[2020-11-07] MEDS ORDERED: methylPREDNISolone SOD SUCCI 125 MG/2 ML VIAL IV STA (10:25)
[2020-11-07] MEDS ORDERED: IPRATROPIUM-ALBUTEROL 3 ML NEB INHALATION STA (10:27)
[2020-11-07] MEDS ORDERED: ALBUTEROL NEB (CONC) 2.5 MG/0.5 ML INHALATION STA (10:27)
--- NOTE | 2020-11-07 10:41 | ED ---
General Adult HPI - General Chief complaint: Shortness of Breath Stated complaint: Asthma Time Seen by Provider: 11/07/20 10:10 Source: patient Mode of arrival: wheelchair Limitations: no limitations - History of Present Illness Initial comments: 65-year-old female patient presents medical history significant for asthma, COPD, diabetes, hypertension who is maintained on 20 mg of prednisone daily presents to the emergency department today for evaluation of increasing coughing and shortness of breath. Symptoms started last evening and has persisted th roughout the night. states he has given multiple breathing treatments without relief. They deny any fever or chills. She has pain in her chest when coughing, denies chest pain at rest. She did have COVID with bilateral pneumonia in June and has been having a slow recovery. states she has some new confusion since her illness, he provides most of history. Patient denies any recent rash, abdominal pain, nausea, vomiting, diarrhea, constipation, back pain, numbness, tingling, dizziness, weakness, hematuria, dysuria, urinary urgency, urinary frequency, headache, visual changes, or any other complaints. - Related Data Home Medications Medication Instructions Recorded Confirmed Escitalopram [Lexapro] 30 mg PO QAM 01/01/14 11/05/20 Spironolactone [Aldactone] 25 mg PO TID 01/01/14 11/05/20 Potassium Chloride ER [K-Dur 20] 60 meq PO BID 11/06/14 11/05/20 Amitriptyline HCl [Elavil] 30 mg PO HS 12/07/14 11/05/20 traZODone HCL 75 mg PO HS 09/10/16 11/05/20 Insulin Aspart (For Pump) [NovoLOG 0.01 unit SQ-PUMP CONTINUOUS 07/24/17 11/05/20 (For Pump)] buPROPion XL [Wellbutrin XL] 450 mg PO DAILY 07/24/17 11/05/20 Fluticasone/Salmeterol [Advair Hfa 2 puff INHALATION RT-BID 04/09/19 11/05/20 230-21 Mcg Inhaler] Pregabalin [Lyrica] 100 mg PO TID 04/09/19 11/05/20 Montelukast [Singulair] 10 mg PO HS 08/01/19 11/05/20 Nystatin 500,000 unit PO QID PRN 08/01/19 11/05/20 Budesonide [Pulmicort] 0.5 mg INHALATION RT-BID 03/31/20 11/05/20 ALPRAZolam [Xanax] 0.25 mg PO HS PRN 07/21/20 11/05/20 ALPRAZolam [Xanax] 0.5 mg PO TID 07/21/20 11/05/20 Cyclobenzaprine [Flexeril] 10 mg PO TID PRN 07/21/20 11/05/20 Furosemide [Lasix] 20 mg PO BID 07/21/20 11/05/20 Magnesium Oxide [Magox 400] 400 mg PO DAILY@1200 07/21/20 11/05/20 Pantoprazole [Protonix] 40 mg PO DAILY 07/21/20 11/05/20 Pravastatin Sodium [Pravachol] 10 mg PO HS 07/21/20 11/05/20 Promethazine 6.25MG/5Ml [Phenergan 6.25 mg PO DIRECTED PRN 07/21/20 11/05/20 Syrup] Ubidecarenone [Co Q-10] 200 mg PO DAILY@1200 07/21/20 11/05/20 Vitamin B-Complex W/Vit C 1 tab PO DAILY 07/21/20 11/05/20 busPIRone HCl [Buspar] 20 mg PO BID 07/21/20 11/05/20 Ascorbic Acid [Vitamin C] 2,000 mg PO DAILY 09/15/20 11/05/20 Previous Rx's Medication Instructions Recorded Hydrocodone/Acetaminophen [[place] 1 tab PO Q6HR PRN 3 Days #10 tab 05/07/20 5-325] Acetaminophen Tab [Tylenol] 650 mg PO Q6HR PRN tab 07/27/20 Albuterol Inhaler [Ventolin Hfa 2 puff INHALATION RT-QID PRN #1 07/27/20 Inhaler] puff Cholecalciferol [Vitamin D3 (25 2,000 unit PO DAILY #30 tab 07/27/20 Mcg = 1000 Iu)] Famotidine [Pepcid] 20 mg PO DAILY #30 tab 07/27/20 Fluticasone Nasal [place] [Flonase 1 spray EA NOSTRIL DAILY spr 07/27/20 Nasal [place]] Ipratropium-Albuterol Nebulize 3 ml INHALATION RT-TID PRN #1 neb 07/27/20 [Duoneb 0.5 mg-3 mg/3 ml Soln] Levofloxacin [Levaquin] 750 mg PO DAILY 5 Days #5 tab 07/27/20 Zinc Sulfate [Orazinc] 220 mg PO DAILY #30 cap 07/27/20 guaiFENesin [Mucinex] 600 mg PO BID PRN tablet.er 07/27/20 predniSONE 10 mg PO DIRECTED #50 tab 07/27/20 Levofloxacin [Levaquin] 750 mg PO DAILY #5 tab 11/07/20 predniSONE 50 mg PO DAILY #5 tablet 11/07/20 Allergies Allergy/AdvReac Type Severity Reaction Status Date / Time crisaborole [From Eucrisa] Allergy Rash/Hives Verified 11/07/20 10:06 indomethacin sodium Allergy severe Verified 11/07/20 10:06 [From Indocin] Confusion cefuroxime axetil AdvReac Severe Abdominal Verified 11/07/20 10:06 [From Ceftin] Pain ciprofloxacin HCl AdvReac Severe Abdominal Verified 11/07/20 10:06 [From Cipro] Pain erythromycin base AdvReac Unknown Abdominal Verified 11/07/20 10:06 [Erythromycin Base] Pain sulfamethoxazole AdvReac Unknown Abdominal Verified 11/07/20 10:06 [From Bactrim] Pain trimethoprim [From Bactrim] AdvReac Unknown Abdominal Verified 11/07/20 10:06 Pain NSAIDS (Non-Steroidal AdvReac Dyspnea Verified 11/07/20 10:06 Anti-Inflamma Penicillins AdvReac Nausea & Verified 11/07/20 10:06 Vomiting Sulfa (Sulfonamide AdvReac Abdominal Verified 11/07/20 10:06 Antibiotics) Pain Review of Systems ROS Statement: Those systems with pertinent positive or pertinent negative responses have been documented in the HPI. ROS Other: All systems not noted in ROS Statement are negative. Past Medical History Past Medical History: Asthma, COPD, Diabetes Mellitus, Eye Disorder, Fibromyalgia, GERD/Reflux, Hyperlipidemia, Hypertension, Musculoskeletal Disorder, Pneumonia, Respiratory Disorder, Skin Disorder Additional Past Medical History / Comment(s): Bronchial asthma, tracheobronchom alacia, common variable immunoglobulin deficiency. Chronic back problems. chronic steroid use, suspected component of adrenal insufficiency due to chronic steroid use. Hiatal hernia. 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 Pneumonia / In ICU in [place] after Back surgery - March 2019. Mycobacterium gordonae soft tissue infection. cataracts, glaucoma, fibromyalgia, chronic pain, compression fracture of the spine. History of Any Multi-Drug Resistant Organisms: MRSA Date of last positivie culture/infection: 2010 MDRO Source:: right hand Past Surgical History: Appendectomy, Back Surgery, Breast Surgery, Cholecystectomy, Tubal Ligation Additional Past Surgical History / Comment(s): MULT BRONCHS, WASHINGS, LAST 04/17/14. EXC [facility] CATARACT. BLEPHAROPLASTY/ R&L BREAST BIOPSIES; PORT A CATH IN LEFT CHEST-CHANGED TO RT CHEST,EXC MYCOBACTERIUM AREAS RT ARM 2011; UPPER TEETH EXTRACTED. RT SALPINGECTOMY/FALLOPIAN TUBE REMOVED, I&D BOIL.Jul [facility] EYE AND MUSCLE SURGERY; - mouth (bone) surgery. Pain pump insertion to left buttocks - October 2016. Colonoscopy 2014. Hiatal hernia surgeries 2014&2015. Back surgery (Decompresssion) - February 2019 Past Anesthesia/Blood Transfusion Reactions: Motion Sickness, Postoperative Naus ea & Vomiting (PONV) Past Psychological History: Anxiety, Depression Smoking Status: Never smoker Past Alcohol Use History: None Reported Past Drug Use History: None Reported - Past Family History Mother Family Medical History: Cancer Additional Family Medical History / Comment(s): BREAST CANCER. Father Additional Family Medical History / Comment(s): r/t suicide General Exam Limitations: no limitations General appearance: alert, in no apparent distress, other (Physical well- developed, well-nourished adult female patient in no acute distress. Vital signs upon presentation are temperature 98.7F, pulse 90, respirations 20, blood pressure 122/54, pulse ox 96% on room air.) Eye exam: Present: normal appearance, PERRL, EOMI. Absent: scleral icterus, conjunctival injection, periorbital swelling ENT exam: Present: normal exam, normal oropharynx, mucous membranes moist Respiratory exam: Present: wheezes (Coarse inspiratoryPrimary wheezing noted throughout the posterior and anterior lung wallace). Absent: respiratory distress, rales, rhonchi, stridor Cardiovascular Exam: Present: regular rate, normal rhythm, normal heart sounds. Absent: systolic murmur, diastolic murmur, rubs, gallop, clicks GI/Abdominal exam: Present: soft, normal bowel sounds. Absent: distended, tenderness, guarding, rebound, rigid Neurological exam: Present: alert, oriented X3, CN II-XII intact Psychiatric exam: Present: normal affect, normal mood Skin exam: Present: warm, dry, intact, normal color. Absent: rash Course Vital Signs 11/07/20 11/07/20 11/07/20 10:03 10:55 11:05 Temperature 98.7 F Pulse Rate 90 83 83 Respiratory 20 18 18 Rate Blood Pressure 122/54 O2 Sat by Pulse 96 Oximetry EKG Findings - EKG Comments: EKG Findings:: EKG obtained at 1017 shows normal sinus rhythm with a ventricular rate 86, PRN interval 152, QRS duration 84, QT 352, QTc 421. No evidence of ST elevation or depression. Medical Decision Making - Medical Decision Making 65 year-old female patient presents to the emergency department today for evaluation of shortness of breath and cough increasing over the last 24 hours. Physical examination revealed coarse expiratory wheezing. Labs reviewed and are relatively unremarkable. Patient's x-ray showed left basilar atelectasis versus infiltrate. Given increasing cough we will treat for pneumonia, patient commonly receives Levaquin from her screen writer we will start this. She will also be increased to 50 mg of prednisone daily for the next 5 days. She'll be discharged follow-up with her primary care physician and her screen writer. It is patient's request to go home. Return parameters were discussed in detail. She verbalizes understanding and agrees with this plan. Case discussed with my attending Dr. Bond. - Lab Data Result diagrams: 11/07/20 10:31 11/07/20 10:31 Lab Results 11/07/20 11/07/20 11/07/20 Range/Units 10:31 10:31 10:31 WBC 11.2 H (3.8-10.6) k/uL RBC 4.78 (3.80-5.40) m/uL Hgb 10.6 L (11.4-16.0) gm/dL Hct 36.0 (34.0-46.0) % MCV 75.3 L (80.0-100.0) fL MCH 22.2 L (25.0-35.0) pg MCHC 29.5 L (31.0-37.0) g/dL RDW 25.1 H (11.5-15.5) % Plt Count 232 (150-450) k/uL MPV 8.7 Neutrophils % 93 % Lymphocytes % 3 % Monocytes % 3 % Eosinophils % 0 % Basophils % 0 % Neutrophils # 10.4 H (1.3-7.7) k/uL Lymphocytes # 0.4 L (1.0-4.8) k/uL Monocytes # 0.4 (0-1.0) k/uL Eosinophils # 0.0 (0-0.7) k/uL Basophils # 0.0 (0-0.2) k/uL Hypochromasia Marked Anisocytosis Marked Microcytosis Marked PT 9.8 (9.0-12.0) sec INR 0.9 (<1.2) APTT 19.9 L (22.0-30.0) sec Sodium 138 (137-145) mmol/L Potassium 4.6 (3.5-5.1) mmol/L Chloride 103 (98-107) mmol/L Carbon Dioxide 27 (22-30) mmol/L Anion Gap 8 mmol/L BUN 20 H (7-17) mg/dL Creatinine 0.91 (0.52-1.04) mg/dL Est GFR (CKD-EPI)AfAm 76 (>60 ml/min/1.73 sqM) Est GFR (CKD-EPI)NonAf 65 (>60 ml/min/1.73 sqM) Glucose 203 H (74-99) mg/dL Plasma Lactic Acid Geovanni (0.7-2.0) mmol/L Calcium 8.9 (8.4-10.2) mg/dL Magnesium 2.5 H (1.6-2.3) mg/dL Total Bilirubin 0.2 (0.2-1.3) mg/dL AST 45 H (14-36) U/L ALT 51 H (4-34) U/L Alkaline Phosphatase 124 (38-126) U/L Troponin I (0.000-0.034) ng/mL Total Protein 6.9 (6.3-8.2) g/dL Albumin 3.8 (3.5-5.0) g/dL Coronavirus (PCR) (Not Detectd) 03/14/21 03/14/21 03/14/21 Range/Units 10:31 10:31 10:39 WBC (3.8-10.6) k/uL RBC (3.80-5.40) m/uL Hgb (11.4-16.0) gm/dL Hct (34.0-46.0) % MCV (80.0-100.0) fL MCH (25.0-35.0) pg MCHC (31.0-37.0) g/dL RDW (11.5-15.5) % Plt Count (150-450) k/uL MPV Neutrophils % % Lymphocytes % % Monocytes % % Eosinophils % % Basophils % % Neutrophils # (1.3-7.7) k/uL Lymphocytes # (1.0-4.8) k/uL Monocytes # (0-1.0) k/uL Eosinophils # (0-0.7) k/uL Basophils # (0-0.2) k/uL Hypochromasia Anisocytosis Microcytosis PT (9.0-12.0) sec INR (<1.2) APTT (22.0-30.0) sec Sodium (137-145) mmol/L Potassium (3.5-5.1) mmol/L Chloride (98-107) mmol/L Carbon Dioxide (22-30) mmol/L Anion Gap mmol/L BUN (7-17) mg/dL Creatinine (0.52-1.04) mg/dL Est GFR (CKD-EPI)AfAm (>60 ml/min/1.73 sqM) Est GFR (CKD-EPI)NonAf (>60 ml/min/1.73 sqM) Glucose (74-99) mg/dL Plasma Lactic Acid [place] 2.0 (0.7-2.0) mmol/L Calcium (8.4-10.2) mg/dL Magnesium (1.6-2.3) mg/dL Total Bilirubin (0.2-1.3) mg/dL AST (14-36) U/L ALT (4-34) U/L Alkaline Phosphatase (38-126) U/L Troponin I <0.012 (0.000-0.034) ng/mL Total Protein (6.3-8.2) g/dL Albumin (3.5-5.0) g/dL Coronavirus (PCR) Not Detected (Not Detectd) - Radiology Data Radiology results: report reviewed, image reviewed Two-view x-ray of the chest was obtained. Report was reviewed in its entirety. Impression by Dr. Jane shows focal left basilar atelectasis versus infiltrate. Correlate with patient's symptoms. Interstitial prominence also correlate to exclude mild pulmonary vascular congestion. Disposition Clinical Impression: Asthma exacerbation, Pneumonia Disposition: HOME SELF-CARE Condition: Good Instructions (If sedation given, give patient instructions): Asthma (ED), Pneumonia (ED) Additional Instructions: Take medications as instructed. Follow-up with your primary care physician and screen writer for recheck as soon as possible. Return to the emergency department for any new, worsening, or concerning symptoms. Prescriptions: Levofloxacin [Levaquin] 750 mg PO DAILY #5 tab predniSONE 50 mg PO DAILY #5 tablet Is patient prescribed a controlled substance at d/c from ED?: No Referrals: Ponce Kothari MD [Primary Care Provider] - 1-2 days Time of Disposition: 12:13
[2020-11-07 10:45] LABS: Anisocytosis Marked; Basophils % (A) 0 %; Eosinophils % (A) 0 %; HGB 10.6 gm/dL (11.4-16.0); Hypochromasia Marked; Lymphocytes # (A) 0.4 k/uL (1.0-4.8); Lymphocytes % (A) 3 %; MCH 22.2 pg (25.0-35.0); MCHC 29.5 g/dL (31.0-37.0); MCV 75.3 fL (80.0-100.0); Mean Platelet Volume 8.7; Microcytosis Marked; Monocytes # (A) 0.4 k/uL (0-1.0); Monocytes % (A) 3 %; Neutrophils # (A) 10.4 k/uL (1.3-7.7); Neutrophils % (A) 93 %; Platelet Count 232 k/uL (150-450); RBC 4.78 m/uL (3.80-5.40); WBC 11.2 k/uL (3.8-10.6)
[2020-11-07 10:49] LABS: RDW 25.1 % (11.5-15.5)
[2020-11-07 10:58] VITALS: RESP 18
[2020-11-07 11:02] LABS: Albumin 3.8 g/dL (3.5-5.0); Calcium 8.9 mg/dL (8.4-10.2); Magnesium 2.5 mg/dL (1.6-2.3); Potassium 4.6 mmol/L (3.5-5.1); Total Bilirubin 0.2 mg/dL (0.2-1.3); Total Protein 6.9 g/dL (6.3-8.2)
[2020-11-07 11:03] LABS: INR 0.9 (<1.2); Prothrombin Time 9.8 sec (9.0-12.0)
--- NOTE | 2020-11-07 11:31 | XR ---
EXAMINATION TYPE: XR chest 2V DATE OF EXAM: 11/07/2020 COMPARISON: 07/27/2020 HISTORY: 65-year-old female shortness of breath, difficulty breathing TECHNIQUE: AP and lateral views FINDINGS: Left heart margin obscured by adjacent pleural parenchymal opacity. Focal posterior left basilar opac ity. Interstitial prominence. Stable band of atelectasis or scar at the left midlung. Right anterior chest wall injection port with catheter tip at the cavoatrial junction. IMPRESSION: Focal left basilar atelectasis versus infiltrate. Correlate with patient's symptoms. Given interstiti al prominence, also, correlate to exclude mild pulmonary vascular congestion.
[2020-11-07 11:39] LABS: Partial Thromboplastin Time 19.9 sec (22.0-30.0)
[2020-11-07] MEDS ORDERED: LEVOFLOXACIN 750 MG TAB PO STA (12:09)
[2020-11-07 12:36] VITALS: BP 122/74; PULSE 85; TEMP 97.8
== END 2020-11-07 12:37 | disposition home or self-care (01) ==
LOC: EC 09:51
DX: J45.901 Unspecified asthma with (acute) exacerbation (principal); J18.9 Pneumonia, unspecified organism; F41.9 Anxiety disorder, unspecified; F32.9 Major depressive disorder, single episode, unspecified; E11.9 Type 2 diabetes mellitus without complications; K21.9 Gastro-esophageal reflux disease without esophagitis; E78.5 Hyperlipidemia, unspecified; I10 Essential (primary) hypertension; Z79.51 Long term (current) use of inhaled steroids; Z20.822 Contact with and (suspected) exposure to COVID-19; Z86.16 Personal history of COVID-19; Z96.41 Presence of insulin pump (external) (internal); Z79.899 Other long term (current) drug therapy; Z88.0 Allergy status to penicillin; Z88.1 Allergy status to other antibiotic agents; Z88.2 Allergy status to sulfonamides; Z88.6 Allergy status to analgesic agent; Z88.8 Allergy status to other drugs, medicaments and biological substances; Z86.14 Personal history of Methicillin resistant Staphylococcus aureus infection; Z90.49 Acquired absence of other specified parts of digestive tract; Z98.51 Tubal ligation status; Z90.721 Acquired absence of ovaries, unilateral; Z98.42 Cataract extraction status, left eye; Z98.41 Cataract extraction status, right eye
CPT/HCPCS: 36415; 94640; 93005; 80053; 83605; 83735; 84484; 85025; 85610; 85730; 87635; 71046; 99285; 96374; J2930

== ENCOUNTER → 2020-11-27 | Outpatient (CLI) | payer MEDICARE ==
--- NOTE | 2020-11-27 10:43 | MR ---
EXAMINATION TYPE: MR cervical spine wo con DATE OF EXAM: 11/27/2020 COMPARISON: MRI cervical spine. HISTORY: Neck pain and right arm pain. COMPARISON: None. TECHNIQUE: Multiecho multiplanar images of the cervical spine were obtained without contrast. FINDINGS: The craniovertebral junction relationships and prevertebral soft tissues are normal. The cervical vertebral segments are normal in height. There is a 4 mm anterolisthesis of C2 on C3. Th ere is loss of normal cervical lordosis. There is moderate to marked degenerative disc disease at the C4-5, C5-6 and C6-7 levels with moderate to marked disc space narrowing and mild discogenic endplate changes, spondylosis and posterior disc bulge. There are no cervical disc herniations. Secondary to posterior hypertrophic spurring is moderate cervical stenosis at C3-4 level and mild cer vical stenosis C4-5, C5-6 and C6-7 levels. Due to motion artifact evaluation neuroforamina is limited however, there is moderate neural foramina l stenosis at the C3-4 level on the right and severe at the C3-4-5, C5-6 and C6-7 levels on the right . There is also at least moderate neural foraminal stenosis. See 4 5, C5-6 and C6-7 levels on the lef t. The cervical cord shows mild focal myelomalacia posteriorly the C5-6 level The paraspinal soft tissues are unremarkable. IMPRESSION: 1. Significant anterolisthesis of L5 3 on L4. 2. Marked degenerative disc disease in the mid lower cervical spine. 3. Severe neural foraminal encroachment on the right at multiple levels as described above and on the left as well. 4 mild focal myelomalacia in the posterior cervical cord at the C3-5-6 level 4. Multilevel cervical stenosis as described above.
== END | disposition home or self-care (01) ==
LOC: RADMRIMAIN 09:36
PROVIDERS: ATTEND Psychiatry & Neurology Neurology
DX: M48.02 Spinal stenosis, cervical region (principal); M43.16 Spondylolisthesis, lumbar region; G95.89 Other specified diseases of spinal cord; M50.30 Other cervical disc degeneration, unspecified cervical region
CPT/HCPCS: 72141

== ENCOUNTER 2020-12-27 09:42 | Emergency (ER) | payer MEDICARE ==
[2020-12-27 09:48] VITALS: TEMP 98
[2020-12-27] MEDS ORDERED: SODIUM CHLORIDE 0.9% 1,000 ML IV STA (10:07)
--- NOTE | 2020-12-27 10:20 | ED ---
SOB HPI - General Chief Complaint: Shortness of Breath Stated Complaint: Asthma Time Seen by Provider: 12/27/20 10:00 Source: patient, family, RN notes reviewed Mode of arrival: ambulatory Limitations: no limitations - History of Present Illness Initial Comments: Patient is a 65-year-old female that presents to emergency department with increased shortness of breath. She does have a history of chronic asthma that she follows up with pulmonology for. Her notes that every once a while she gets flareups of coughs and increased shortness of breath or breathing treatments don't work at home. She notes that he tried giving several breathing treatments at home yesterday with no relief. He does report the patient does wear oxygen at home at 3 L/m. She does have a complicated past medical history where she does receive IVIG infusion therapies approximately once a month. She was sitting up in bed in no apparent distress or pain with no accessory muscle use of breathing. notes that she's had a dry cough for the past several days that is causing her chest and back to be sore from frequent muscle usage coughing fits. also notes that when this usually happens in the come emergency room increase her steroids for hand 4 days and start her on Levaquin for frequent bouts of pneumonia. She denied any chest pain headache nausea vomiting diarrhea constipation fever fatigue chills. - Related Data Home Medications Medication Instructions Recorded Confirmed Escitalopram [Lexapro] 30 mg PO QAM 01/01/14 12/03/20 Spironolactone [Aldactone] 25 mg PO TID 01/01/14 12/03/20 Potassium Chloride ER [K-Dur 20] 60 meq PO BID 11/06/14 12/03/20 Amitriptyline HCl [Elavil] 30 mg PO HS 12/07/14 12/03/20 traZODone HCL 75 mg PO HS 09/10/16 12/03/20 Insulin Aspart (For Pump) [NovoLOG 0.01 unit SQ-PUMP CONTINUOUS 07/24/17 12/03/20 (For Pump)] buPROPion XL [Wellbutrin XL] 450 mg PO DAILY 07/24/17 12/03/20 Fluticasone/Salmeterol [Advair Hfa 2 puff INHALATION RT-BID 04/09/19 12/03/20 230-21 Mcg Inhaler] Pregabalin [Lyrica] 100 mg PO TID 04/09/19 12/03/20 Montelukast [Singulair] 10 mg PO HS 08/01/19 12/03/20 Nystatin 500,000 unit PO QID PRN 08/01/19 12/03/20 Budesonide [Pulmicort] 0.5 mg INHALATION RT-BID 03/31/20 12/03/20 ALPRAZolam [Xanax] 0.25 mg PO HS PRN 07/21/20 12/03/20 ALPRAZolam [Xanax] 0.5 mg PO TID 07/21/20 12/03/20 Cyclobenzaprine [Flexeril] 10 mg PO TID PRN 07/21/20 12/03/20 Furosemide [Lasix] 20 mg PO BID 07/21/20 12/03/20 Magnesium Oxide [Magox 400] 400 mg PO DAILY@1200 07/21/20 12/03/20 Pantoprazole [Protonix] 40 mg PO DAILY 07/21/20 12/03/20 Pravastatin Sodium [Pravachol] 10 mg PO HS 07/21/20 12/03/20 Promethazine 6.25MG/5Ml [Phenergan 6.25 mg PO DIRECTED PRN 07/21/20 12/03/20 Syrup] Ubidecarenone [Co Q-10] 200 mg PO DAILY@1200 07/21/20 12/03/20 Vitamin B-Complex W/Vit C 1 tab PO DAILY 07/21/20 12/03/20 busPIRone HCl [Buspar] 20 mg PO BID 07/21/20 12/03/20 Ascorbic Acid [Vitamin C] 2,000 mg PO DAILY 09/15/20 12/03/20 Previous Rx's Medication Instructions Recorded Hydrocodone/Acetaminophen [[place] 1 tab PO Q6HR PRN 3 Days #10 tab 05/07/20 5-325] Acetaminophen Tab [Tylenol] 650 mg PO Q6HR PRN tab 07/27/20 Albuterol Inhaler [Ventolin Hfa 2 puff INHALATION RT-QID PRN #1 07/27/20 Inhaler] puff Cholecalciferol [Vitamin D3 (25 2,000 unit PO DAILY #30 tab 07/27/20 Mcg = 1000 Iu)] Famotidine [Pepcid] 20 mg PO DAILY #30 tab 07/27/20 Fluticasone Nasal [place] [Flonase 1 spray EA NOSTRIL DAILY spr 07/27/20 Nasal [place]] Ipratropium-Albuterol Nebulize 3 ml INHALATION RT-TID PRN #1 neb 07/27/20 [Duoneb 0.5 mg-3 mg/3 ml Soln] Levofloxacin [Levaquin] 750 mg PO DAILY 5 Days #5 tab 07/27/20 Zinc Sulfate [Orazinc] 220 mg PO DAILY #30 cap 07/27/20 guaiFENesin [Mucinex] 600 mg PO BID PRN tablet.er 07/27/20 predniSONE 10 mg PO DIRECTED #50 tab 07/27/20 Levofloxacin [Levaquin] 750 mg PO DAILY #5 tab 11/07/20 predniSONE 50 mg PO DAILY #5 tablet 11/07/20 Levofloxacin [Levaquin] 500 mg PO DAILY #10 tab 12/27/20 predniSONE 50 mg PO DAILY #5 tab 12/27/20 Allergies Allergy/AdvReac Type Severity Reaction Status Date / Time crisaborole [From Eucrisa] Allergy Rash/Hives Verified 12/27/20 09:45 indomethacin sodium Allergy severe Verified 12/27/20 09:45 [From Indocin] Confusion cefuroxime axetil AdvReac Severe Abdominal Verified 12/27/20 09:45 [From Ceftin] Pain ciprofloxacin HCl AdvReac Severe Abdominal Verified 12/27/20 09:45 [From Cipro] Pain erythromycin base AdvReac Unknown Abdominal Verified 12/27/20 09:45 [Erythromycin Base] Pain sulfamethoxazole AdvReac Unknown Abdominal Verified 12/27/20 09:45 [From Bactrim] Pain trimethoprim [From Bactrim] AdvReac Unknown Abdominal Verified 12/27/20 09:45 Pain NSAIDS (Non-Steroidal AdvReac Dyspnea Verified 12/27/20 09:45 Anti-Inflamma Penicillins AdvReac Nausea & Verified 12/27/20 09:45 Vomiting Sulfa (Sulfonamide AdvReac Abdominal Verified 12/27/20 09:45 Antibiotics) Pain Review of Systems ROS Statement: Those systems with pertinent positive or pertinent negative responses have been documented in the HPI. ROS Other: All systems not noted in ROS Statement are negative. Past Medical History Past Medical History: Asthma, COPD, Diabetes Mellitus, Eye Disorder, Fibromyalgia, GERD/Reflux, Hyperlipidemia, Hypertension, Musculoskeletal Disorder, Pneumonia, Respiratory Disorder, Skin Disorder Additional Past Medical History / Comment(s): Bronchial asthma, tracheobronchomalacia, common variable immunoglobulin deficiency. Chronic back problems. chronic steroid use, suspected component of adrenal insufficiency due to chronic steroid use. Hiatal hernia. 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 Pneumonia / In ICU in [place] after Back surgery - March 2019. Mycobacterium gordonae soft tissue infection. cataracts, glaucoma, fibromyalgia, chronic pain, compression fracture of the spine. History of Any Multi-Drug Resistant Organisms: MRSA Date of last positivie culture/infection: 2010 MDRO Source:: right hand Past Surgical History: Appendectomy, Back Surgery, Breast Surgery, Cholecystectomy, Tubal Ligation Additional Past Surgical History / Comment(s): MULT BRONCHS, WASHINGS, LAST 04/17/14. EXC [facility]MA CATARACT. BLEPHAROPLASTY/ R&L BREAST BIOPSIES; PORT A CATH IN LEFT CHEST-CHANGED TO RT CHEST,EXC MYCOBACTERIUM AREAS RT ARM 2011; UPPER TEETH EXTRACTED. RT SALPINGECTOMY/FALLOPIAN TUBE REMOVED, I&D BOIL.Jul [facility] EYE AND MUSCLE SURGERY; - mouth (bone) surgery. Pain pump insertion to left buttocks - October 2016. Colonoscopy 2014. Hiatal hernia surgeries 2014&2015. Back surgery (Decompresssion) - February 2019 Past Anesthesia/Blood Transfusion Reactions: Motion Sickness, Postoperative Nausea & Vomiting (PONV) Past Psychological History: Anxiety, Depression Smoking Status: Never smoker Past Alcohol Use History: None Reported Past Drug Use History: None Reported - Past Family History Mother Family Medical History: Cancer Additional Family Medical History / Comment(s): BREAST CANCER. Father Additional Family Medical History / Comment(s): r/t suicide General Exam Limitations: no limitations General appearance: alert, in no apparent distress Head exam: Present: atraumatic, normocephalic, normal inspection Eye exam: Present: normal appearance, PERRL, EOMI. Absent: scleral icterus, conjunctival injection, periorbital swelling Neck exam: Present: normal inspection. Absent: tenderness, meningismus, lymphadenopathy Respiratory exam: Present: wheezes (Course expiratory wheezes). Absent: respiratory distress, rales, rhonchi, stridor Cardiovascular Exam: Present: regular rate, normal rhythm, normal heart sounds. Absent: systolic murmur, diastolic murmur, rubs, gallop, clicks GI/Abdominal exam: Present: soft, normal bowel sounds. Absent: distended, tenderness, guarding, rebound, rigid Extremities exam: Present: normal inspection, full ROM, normal capillary refill. Absent: tenderness, pedal edema, joint swelling, calf tenderness Neurological exam: Present: alert, oriented X3 Psychiatric exam: Present: normal affect, normal mood Skin exam: Present: warm, dry, intact, normal color. Absent: rash Course Vital Signs 12/27/20 12/27/20 12/27/20 09:45 09:48 10:46 Temperature 98 F Pulse Rate 102 H 90 Respiratory 20 18 Rate Blood Pressure 95/54 125/59 Medical Decision Making - Medical Decision Making 65-year-old female with increased asthma and shortness of breath. Labs, chest x-ray normal 1 L normal saline, 3 L of oxygen via nasal cannula to maintain at home oxygen needs ordered. Labs unremarkable compared to previous studies. Case discussed with Dr. Parker - Lab Data Result diagrams: 12/27/20 10:25 12/27/20 10:25 Lab Results 12/27/20 12/27/20 12/27/20 Range/Units 10:25 10:25 10:25 WBC 12.5 H (3.8-10.6) k/uL RBC 4.47 (3.80-5.40) m/uL Hgb 11.6 (11.4-16.0) gm/dL Hct 36.7 (34.0-46.0) % MCV 82.1 (80.0-100.0) fL MCH 26.1 (25.0-35.0) pg MCHC 31.8 (31.0-37.0) g/dL RDW 20.8 H (11.5-15.5) % Plt Count 140 L (150-450) k/uL MPV 8.5 Neutrophils % 90 % Lymphocytes % 3 % Monocytes % 4 % Eosinophils % 1 % Basophils % 0 % Neutrophils # 11.3 H (1.3-7.7) k/uL Lymphocytes # 0.4 L (1.0-4.8) k/uL Monocytes # 0.6 (0-1.0) k/uL Eosinophils # 0.2 (0-0.7) k/uL Basophils # 0.0 (0-0.2) k/uL Hypochromasia Slight Anisocytosis Moderate Microcytosis Moderate PT 9.9 (9.0-12.0) sec INR 0.9 (<1.2) APTT 21.8 L (22.0-30.0) sec Sodium 133 L (137-145) mmol/L Potassium 5.1 (3.5-5.1) mmol/L Chloride 100 (98-107) mmol/L Carbon Dioxide 32 H (22-30) mmol/L Anion Gap 1 mmol/L BUN 24 H (7-17) mg/dL Creatinine 1.04 (0.52-1.04) mg/dL Est GFR (CKD-EPI)AfAm 65 (>60 ml/min/1.73 sqM) Est GFR (CKD-EPI)NonAf 56 (>60 ml/min/1.73 sqM) Glucose 232 H (74-99) mg/dL Calcium 8.1 L (8.4-10.2) mg/dL Total Bilirubin 0.3 (0.2-1.3) mg/dL AST 76 H (14-36) U/L ALT 70 H (4-34) U/L Alkaline Phosphatase 115 (38-126) U/L Total Protein 5.1 L (6.3-8.2) g/dL Albumin 2.9 L (3.5-5.0) g/dL - Radiology Data Radiology results: report reviewed, image reviewed Chest x-ray: Chronic changes with persistent left basilar acute infiltrate and/or atelectasis. Right shoulder acute infiltrate and/or atelectasis on current studies. Disposition Clinical Impression: Pneumonia, COPD (chronic obstructive pulmonary disease) with chronic bronchitis Disposition: HOME SELF-CARE Condition: Stable Instructions (If sedation given, give patient instructions): Chronic Bronchitis (ED) Additional Instructions: Please return to the Emergency Department if symptoms worsen or any other concerns. Follow-up with pulmonology and primary care in the next 3-5 days. Take antibiotics as prescribed until complete. Take steroids as prescribed until complete. Increase fluids. Is patient prescribed a controlled substance at d/c from ED?: No Referrals: Ponce Kothari MD [Primary Care Provider] - 1-2 days Time of Disposition: 12:48
[2020-12-27 10:46] VITALS: BP 125/59; PULSE 90; RESP 18
[2020-12-27 10:55] LABS: Anisocytosis Moderate; Basophils % (A) 0 %; Eosinophils # (A) 0.2 k/uL (0-0.7); Eosinophils % (A) 1 %; HCT 36.7 % (34.0-46.0); HGB 11.6 gm/dL (11.4-16.0); Hypochromasia Slight; Lymphocytes # (A) 0.4 k/uL (1.0-4.8); Lymphocytes % (A) 3 %; MCH 26.1 pg (25.0-35.0); MCHC 31.8 g/dL (31.0-37.0); MCV 82.1 fL (80.0-100.0); Mean Platelet Volume 8.5; Microcytosis Moderate; Monocytes # (A) 0.6 k/uL (0-1.0); Monocytes % (A) 4 %; Neutrophils # (A) 11.3 k/uL (1.3-7.7); Neutrophils % (A) 90 %; Platelet Count 140 k/uL (150-450); RBC 4.47 m/uL (3.80-5.40); RDW 20.8 % (11.5-15.5); WBC 12.5 k/uL (3.8-10.6)
[2020-12-27 11:08] LABS: Albumin 2.9 g/dL (3.5-5.0); Calcium 8.1 mg/dL (8.4-10.2); Potassium 5.1 mmol/L (3.5-5.1); Total Bilirubin 0.3 mg/dL (0.2-1.3); Total Protein 5.1 g/dL (6.3-8.2)
[2020-12-27 11:17] LABS: INR 0.9 (<1.2); Prothrombin Time 9.9 sec (9.0-12.0)
[2020-12-27 11:21] LABS: Partial Thromboplastin Time 21.8 sec (22.0-30.0)
--- NOTE | 2020-12-27 12:44 | XR ---
EXAMINATION TYPE: XR chest 2V DATE OF EXAM: 12/27/2020 COMPARISON: N chest x-ray November 07, [address] chest September 18, 2019 ONE HISTORY: History of asthma with shortness of breath TECHNIQUE: Frontal and lateral views of the chest are obtained. FINDINGS: Stable right internal jugular Mediport catheter. Background chronic parenchymal change with persistent left basilar opacity and elevated hemidiaphragm. New right hilar opacity. The cardiac mc houette size is stable and upper limits of normal with atherosclerotic aorta. Degenerative change lincoln ateral glenohumeral joints redemonstrated. IMPRESSION: Chronic changes with persistent left basilar acute infiltrate and/or atelectasis. New ri ght hilar acute infiltrate and/or atelectasis on current study.
== END 2020-12-27 13:16 | disposition home or self-care (01) ==
LOC: EC 09:42
DX: J44.9 Chronic obstructive pulmonary disease, unspecified (principal); J18.9 Pneumonia, unspecified organism; E78.5 Hyperlipidemia, unspecified; F32.9 Major depressive disorder, single episode, unspecified; F41.9 Anxiety disorder, unspecified; I10 Essential (primary) hypertension; K21.9 Gastro-esophageal reflux disease without esophagitis; M79.7 Fibromyalgia; E11.39 Type 2 diabetes mellitus with other diabetic ophthalmic complication; E11.36 Type 2 diabetes mellitus with diabetic cataract; H42 Glaucoma in diseases classified elsewhere; H26.9 Unspecified cataract; Z90.49 Acquired absence of other specified parts of digestive tract; Z98.51 Tubal ligation status; Z90.79 Acquired absence of other genital organ(s); Z79.4 Long term (current) use of insulin
CPT/HCPCS: 36415; 71046; 80053; 85025; 85610; 85730; 99285

== ENCOUNTER 2021-01-08 23:17 | Emergency (ER) | payer MEDICARE ==
[2021-01-08 23:23] VITALS: RESP 18
[2021-01-09] MEDS ORDERED: MAG HYDROX/AL HYDROX/SIMETH 30 ML, HYOSCYAMINE ELIXIR 10 ML, LIDOCAINE VISCOUS 2% 10 ML PO STA ×3 (00:02)
[2021-01-09 01:23] LABS: Anisocytosis Slight; Basophils # (A) 0.1 k/uL (0-0.2); Basophils % (A) 1 %; Eosinophils # (A) 0.1 k/uL (0-0.7); Eosinophils % (A) 1 %; HCT 40.1 % (34.0-46.0); HGB 12.7 gm/dL (11.4-16.0); Lymphocytes # (A) 2.2 k/uL (1.0-4.8); Lymphocytes % (A) 20 %; MCH 25.8 pg (25.0-35.0); MCHC 31.6 g/dL (31.0-37.0); MCV 81.6 fL (80.0-100.0); Mean Platelet Volume 8.4; Microcytosis Slight; Monocytes # (A) 0.7 k/uL (0-1.0); Monocytes % (A) 6 %; Neutrophils # (A) 7.8 k/uL (1.3-7.7); Neutrophils % (A) 70 %; Platelet Count 185 k/uL (150-450); RBC 4.91 m/uL (3.80-5.40); RDW 18.9 % (11.5-15.5)
[2021-01-09 01:35] LABS: ALT 43 U/L (4-34); AST 45 U/L (14-36); African American GFR (CKD) >90 (>60 ml/min/1.73 sqM); Albumin 3.4 g/dL (3.5-5.0); Alkaline Phosphatase 98 U/L (38-126); Anion Gap 4 mmol/L; Blood Urea Nitrogen 19 mg/dL (7-17); Carbon Dioxide 32 mmol/L (22-30); Chloride 104 mmol/L (98-107); Glucose 99 mg/dL (74-99); Non-African American GFR(CKD) 82 (>60 ml/min/1.73 sqM); Potassium 4.2 mmol/L (3.5-5.1); Sodium 140 mmol/L (137-145); Total Bilirubin 0.3 mg/dL (0.2-1.3); Total Protein 6.1 g/dL (6.3-8.2)
[2021-01-09] MEDS ORDERED: HYDROmorphone 0.5 MG/0.5 ML SYRINGE IVP STA (01:36)
[2021-01-09] MEDS ORDERED: SODIUM CHLORIDE 0.9% 1,000 ML IV ONE (01:38)
[2021-01-09 01:49] LABS: INR 0.9 (<1.2)
--- NOTE | 2021-01-09 01:56 | ED ---
Abdominal Pain HPI - General Chief Complaint: Abdominal Pain Stated Complaint: Acid Reflux Time Seen by Provider: 01/08/21 23:50 Source: patient Mode of arrival: ambulatory Limitations: no limitations - History of Present Illness Initial Comments: 65-year-old female presenting to the ER today for chief complaint indigestion. Patient states she has very bad GERD and she takes Protonix. Patient states the past week she has had a burning sensation she states she tastes acid in her mouth. pt denies blood or dark stools. denies nausea, vomiting, diarrhea, chest pain/pressure or dyspnea. pt states this is very typical of her GERD as far characteristic states that has been lasting for 5 days--and thus she wanted a GI cocktail which usually takes it away, No additional complaints. pt appears well nontoxic in no acute distress. - Related Data Home Medications Medication Instructions Recorded Confirmed Escitalopram [Lexapro] 30 mg PO QAM 01/01/14 12/31/20 Spironolactone [Aldactone] 25 mg PO TID 01/01/14 12/31/20 Potassium Chloride ER [K-Dur 20] 60 meq PO BID 11/06/14 12/31/20 Amitriptyline HCl [Elavil] 30 mg PO HS 12/07/14 12/31/20 traZODone HCL 75 mg PO HS 09/10/16 12/31/20 Insulin Aspart (For Pump) [NovoLOG 0.01 unit SQ-PUMP CONTINUOUS 07/24/17 12/31/20 (For Pump)] buPROPion XL [Wellbutrin XL] 450 mg PO DAILY 07/24/17 12/31/20 Fluticasone/Salmeterol [Advair Hfa 2 puff INHALATION RT-BID 04/09/19 12/31/20 230-21 Mcg Inhaler] Pregabalin [Lyrica] 100 mg PO TID 04/09/19 12/31/20 Montelukast [Singulair] 10 mg PO HS 08/01/19 12/31/20 Nystatin 500,000 unit PO QID PRN 08/01/19 12/31/20 Budesonide [Pulmicort] 0.5 mg INHALATION RT-BID 03/31/20 12/31/20 ALPRAZolam [Xanax] 0.25 mg PO HS PRN 07/21/20 12/31/20 ALPRAZolam [Xanax] 0.5 mg PO TID 07/21/20 12/31/20 Cyclobenzaprine [Flexeril] 10 mg PO TID PRN 07/21/20 12/31/20 Furosemide [Lasix] 20 mg PO BID 07/21/20 12/31/20 Magnesium Oxide [Magox 400] 400 mg PO DAILY@1200 07/21/20 12/31/20 Pantoprazole [Protonix] 40 mg PO DAILY 07/21/20 12/31/20 Pravastatin Sodium [Pravachol] 10 mg PO HS 07/21/20 12/31/20 Promethazine 6.25MG/5Ml [Phenergan 6.25 mg PO DIRECTED PRN 07/21/20 12/31/20 Syrup] Ubidecarenone [Co Q-10] 200 mg PO DAILY@1200 07/21/20 12/31/20 Vitamin B-Complex W/Vit C 1 tab PO DAILY 07/21/20 12/31/20 busPIRone HCl [Buspar] 20 mg PO BID 07/21/20 12/31/20 Ascorbic Acid [Vitamin C] 2,000 mg PO DAILY 09/15/20 12/31/20 predniSONE 20 mg PO DIRECTED 12/31/20 12/31/20 Previous Rx's Medication Instructions Recorded Hydrocodone/Acetaminophen [[place] 1 tab PO Q6HR PRN 3 Days #10 tab 05/07/20 5-325] Acetaminophen Tab [Tylenol] 650 mg PO Q6HR PRN tab 07/27/20 Albuterol Inhaler [Ventolin Hfa 2 puff INHALATION RT-QID PRN #1 07/27/20 Inhaler] puff Cholecalciferol [Vitamin D3 (25 2,000 unit PO DAILY #30 tab 07/27/20 Mcg = 1000 Iu)] Famotidine [Pepcid] 20 mg PO DAILY #30 tab 07/27/20 Fluticasone Nasal [place] [Flonase 1 spray EA NOSTRIL DAILY spr 07/27/20 Nasal [place]] Ipratropium-Albuterol Nebulize 3 ml INHALATION RT-TID PRN #1 neb 07/27/20 [Duoneb 0.5 mg-3 mg/3 ml Soln] Zinc Sulfate [Orazinc] 220 mg PO DAILY #30 cap 07/27/20 guaiFENesin [Mucinex] 600 mg PO BID PRN tablet.er 07/27/20 Allergies Allergy/AdvReac Type Severity Reaction Status Date / Time crisaborole [From Eucrisa] Allergy Rash/Hives Verified 01/08/21 23:24 indomethacin sodium Allergy severe Verified 01/08/21 23:24 [From Indocin] Confusion cefuroxime axetil AdvReac Severe Abdominal Verified 01/08/21 23:24 [From Ceftin] Pain ciprofloxacin HCl AdvReac Severe Abdominal Verified 01/08/21 23:24 [From Cipro] Pain erythromycin base AdvReac Unknown Abdominal Verified 01/08/21 23:24 [Erythromycin Base] Pain sulfamethoxazole AdvReac Unknown Abdominal Verified 01/08/21 23:24 [From Bactrim] Pain trimethoprim [From Bactrim] AdvReac Unknown Abdominal Verified 01/08/21 23:24 Pain NSAIDS (Non-Steroidal AdvReac Dyspnea Verified 01/08/21 23:24 Anti-Inflamma Penicillins AdvReac Nausea & Verified 01/08/21 23:24 Vomiting Sulfa (Sulfonamide AdvReac Abdominal Verified 01/08/21 23:24 Antibiotics) Pain Review of Systems ROS Statement: Those systems with pertinent positive or pertinent negative responses have been documented in the HPI. ROS Other: All systems not noted in ROS Statement are negative. Past Medical History Past Medical History: Asthma, COPD, Diabetes Mellitus, Eye Disorder, Fibromyalgia, GERD/Reflux, Hyperlipidemia, Hypertension, Musculoskeletal Disorder, Pneumonia, Respiratory Disorder, Skin Disorder Additional Past Medical History / Comment(s): Bronchial asthma, tracheobronchomalacia, common variable immunoglobulin deficiency. Chronic back problems. chronic steroid use, suspected component of adrenal insufficiency due to chronic steroid use. Hiatal hernia. 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 Pneumonia / In ICU in [place] after Back surgery - March 2019. Mycobacterium gordonae soft tissue infection. cataracts, glaucoma, fibromyalgia, chronic pain, compression fracture of the spine. covid History of Any Multi-Drug Resistant Organisms: MRSA Date of last positivie culture/infection: 2010 MDRO Source:: right hand Past Surgical History: Appendectomy, Back Surgery, Breast Surgery, Cholecystectomy, Tubal Ligation Additional Past Surgical History / Comment(s): MULT BRONCHS, WASHINGS, LAST 8/22/14. EXC [facility]MA CATARACT. BLEPHAROPLASTY/ R&L BREAST BIOPSIES; PORT A CATH IN LEFT CHEST-CHANGED TO RT CHEST,EXC MYCOBACTERIUM AREAS RT ARM 2011; UPPER TEETH EXTRACTED. RT SALPINGECTOMY/FALLOPIAN TUBE REMOVED, I&D BOIL.Jul [facility] EYE AND MUSCLE SURGERY; - mouth (bone) surgery. Pain pump insertion to left buttocks - October 2016. Colonoscopy 2014. Hiatal hernia surgeries 2014&2015. Back surgery (Decompresssion) - February 2019 Past Anesthesia/Blood Transfusion Reactions: Motion Sickness, Postoperative Nausea & Vomiting (PONV) Past Psychological History: Anxiety, Depression Smoking Status: Never smoker Past Alcohol Use History: None Reported Past Drug Use History: None Reported - Past Family History Mother Family Medical History: Cancer Additional Family Medical History / Comment(s): BREAST CANCER. Father Additional Family Medical History / Comment(s): r/t suicide General Exam - General Exam Comments Initial Comments: General: The patient is awake and alert, in no distress Eye: +3mm pupils are equal, round and reactive to light, extra-ocular movements are intact. No nystagmus. There is normal conjunctiva bilaterally. No signs of icterus. Ears, nose, mouth and throat: There are moist mucous membranes and no oral lesions. Neck: The neck is supple, there is no tenderness or JVD. Cardiovascular: There is a regular rate and rhythm. No murmur, rub or gallop is appreciated. Respiratory: Lungs are clear to auscultation, respirations are non-labored, breath sounds are equal. No wheezes, stridor, rales, or rhonchi. Gastrointestinal: Soft, non-distended, non-tender abdomen without masses or organomegaly noted. There is no rebound or guarding present. Musculoskeletal: Normal ROM, no tenderness. Strength 5/5. Sensation intact. Radial and DP pulses equal bilaterally 2+. Neurological: A&O x 3. CN II-XII intact grossly, There are no obvious motor or sensory deficits. Coordination appears grossly intact. Speech is normal. Skin: Skin is warm and dry and no rashes or lesions are noted. Psychiatric: Cooperative, appropriate mood & affect, normal judgment. Limitations: no limitations Course Vital Signs 01/08/21 23:19 Temperature 98.2 F Pulse Rate 85 Respiratory 18 Rate Blood Pressure 137/71 O2 Sat by Pulse 92 L Oximetry Medical Decision Making - Medical Decision Making 65yo female presenting for cc of indigestion. no cp. almost refused labs. ongoing x 5 days. troponin (-). ekg no acute findings. relief with GI cocktail. pt adament this is her GERD and requesting discharge, pt discharged appearing well. Dr Rasmussen is agreeable to care plan and discharge, - Lab Data Result diagrams: 01/09/21 00:09 01/09/21 00:09 Lab Results 01/09/21 01/09/21 01/09/21 Range/Units 00:09 00:09 00:09 WBC 11.0 H (3.8-10.6) k/uL RBC 4.91 (3.80-5.40) m/uL Hgb 12.7 (11.4-16.0) gm/dL Hct 40.1 (34.0-46.0) % MCV 81.6 (80.0-100.0) fL MCH 25.8 (25.0-35.0) pg MCHC 31.6 (31.0-37.0) g/dL RDW 18.9 H (11.5-15.5) % Plt Count 185 (150-450) k/uL MPV 8.4 Neutrophils % 70 % Lymphocytes % 20 % Monocytes % 6 % Eosinophils % 1 % Basophils % 1 % Neutrophils # 7.8 H (1.3-7.7) k/uL Lymphocytes # 2.2 (1.0-4.8) k/uL Monocytes # 0.7 (0-1.0) k/uL Eosinophils # 0.1 (0-0.7) k/uL Basophils # 0.1 (0-0.2) k/uL Anisocytosis Slight Microcytosis Slight PT 10.0 (9.0-12.0) sec INR 0.9 (<1.2) APTT 21.7 L (22.0-30.0) sec Sodium 140 (137-145) mmol/L Potassium 4.2 (3.5-5.1) mmol/L Chloride 104 (98-107) mmol/L Carbon Dioxide 32 H (22-30) mmol/L Anion Gap 4 mmol/L BUN 19 H (7-17) mg/dL Creatinine 0.76 (0.52-1.04) mg/dL Est GFR (CKD-EPI)AfAm >90 (>60 ml/min/1.73 sqM) Est GFR (CKD-EPI)NonAf 82 (>60 ml/min/1.73 sqM) Glucose 99 (74-99) mg/dL Calcium 9.0 (8.4-10.2) mg/dL Total Bilirubin 0.3 (0.2-1.3) mg/dL AST 45 H (14-36) U/L ALT 43 H (4-34) U/L Alkaline Phosphatase 98 (38-126) U/L Troponin I (0.000-0.034) ng/mL Total Protein 6.1 L (6.3-8.2) g/dL Albumin 3.4 L (3.5-5.0) g/dL 01/09/21 Range/Units 00:09 WBC (3.8-10.6) k/uL RBC (3.80-5.40) m/uL Hgb (11.4-16.0) gm/dL Hct (34.0-46.0) % MCV (80.0-100.0) fL MCH (25.0-35.0) pg MCHC (31.0-37.0) g/dL RDW (11.5-15.5) % Plt Count (150-450) k/uL MPV Neutrophils % % Lymphocytes % % Monocytes % % Eosinophils % % Basophils % % Neutrophils # (1.3-7.7) k/uL Lymphocytes # (1.0-4.8) k/uL Monocytes # (0-1.0) k/uL Eosinophils # (0-0.7) k/uL Basophils # (0-0.2) k/uL Anisocytosis Microcytosis PT (9.0-12.0) sec INR (<1.2) APTT (22.0-30.0) sec Sodium (137-145) mmol/L Potassium (3.5-5.1) mmol/L Chloride (98-107) mmol/L Carbon Dioxide (22-30) mmol/L Anion Gap mmol/L BUN (7-17) mg/dL Creatinine (0.52-1.04) mg/dL Est GFR (CKD-EPI)AfAm (>60 ml/min/1.73 sqM) Est GFR (CKD-EPI)NonAf (>60 ml/min/1.73 sqM) Glucose (74-99) mg/dL Calcium (8.4-10.2) mg/dL Total Bilirubin (0.2-1.3) mg/dL AST (14-36) U/L ALT (4-34) U/L Alkaline Phosphatase (38-126) U/L Troponin I <0.012 (0.000-0.034) ng/mL Total Protein (6.3-8.2) g/dL Albumin (3.5-5.0) g/dL Disposition Clinical Impression: Indigestion Disposition: HOME SELF-CARE Condition: Good Instructions (If sedation given, give patient instructions): Indigestion (ED) Additional Instructions: Please use medication as discussed. Please follow-up with family doctor in the next 2 days.. Please return to emergency room if the symptoms increase or worsen or for any other concerns. Is patient prescribed a controlled substance at d/c from ED?: No Referrals: Ponce Kothari MD [Primary Care Provider] - 1-2 days Time of Disposition: 01:56
[2021-01-09 01:58] LABS: Partial Thromboplastin Time 21.7 sec (22.0-30.0)
[2021-01-09 02:40] VITALS: BP 140/76; PULSE 80; TEMP 98.1
== END 2021-01-09 02:36 | disposition home or self-care (01) ==
LOC: EC 23:17
DX: K30 Functional dyspepsia (principal); J44.9 Chronic obstructive pulmonary disease, unspecified; K21.9 Gastro-esophageal reflux disease without esophagitis; E78.5 Hyperlipidemia, unspecified; F41.9 Anxiety disorder, unspecified; F32.9 Major depressive disorder, single episode, unspecified; M79.7 Fibromyalgia; I10 Essential (primary) hypertension; E11.36 Type 2 diabetes mellitus with diabetic cataract; H26.9 Unspecified cataract; Z86.16 Personal history of COVID-19; Z79.52 Long term (current) use of systemic steroids; Z79.899 Other long term (current) drug therapy; Z79.51 Long term (current) use of inhaled steroids; Z79.4 Long term (current) use of insulin; Z88.0 Allergy status to penicillin
CPT/HCPCS: 36415; 80053; 84484; 85025; 85610; 85730; 93005; 99283

== ENCOUNTER 2021-01-09 17:18 | Emergency (ER) | payer MEDICARE ==
--- NOTE | 2021-01-09 17:30 | ED ---
General Adult HPI - General Chief complaint: Shortness of Breath Stated complaint: Asthma, DIANNE Time Seen by Provider: 01/09/21 17:27 Source: patient, family Mode of arrival: wheelchair Limitations: no limitations - History of Present Illness Initial comments: Patient presents to the ED with her for evaluation. Patient states that she has had an asthma exacerbation with symptoms of cough, mucus production and dyspnea for the past 3-4 hours or so. Patient states that she has been giving herself home nebulizer treatments without much relief. states that the patient is steroid-dependent, and she takes prednisone 20 mg PO daily (including today) for control of her asthma. Patient states that she is fully vaccinated against Covid, and she states that she was also diagnosed with Covid last year. Patient denies having any pain, fever or chills, headache, focal neuro deficit, chest pain, hemoptysis, palpitations, dizziness, nausea/vomiting/diarrhea, abdominal pain, dysuria or urinary symptoms, decreased urine output, leg or calf swelling or pain, or any other symptoms or complaints. - Related Data Home Medications Medication Instructions Recorded Confirmed Escitalopram [Lexapro] 30 mg PO QAM 01/01/14 12/31/20 Spironolactone [Aldactone] 25 mg PO TID 01/01/14 12/31/20 Potassium Chloride ER [K-Dur 20] 60 meq PO BID 11/06/14 12/31/20 Amitriptyline HCl [Elavil] 30 mg PO HS 12/07/14 12/31/20 traZODone HCL 75 mg PO HS 09/10/16 12/31/20 Insulin Aspart (For Pump) [NovoLOG 0.01 unit SQ-PUMP CONTINUOUS 07/24/17 12/31/20 (For Pump)] buPROPion XL [Wellbutrin XL] 450 mg PO DAILY 07/24/17 12/31/20 Fluticasone/Salmeterol [Advair Hfa 2 puff INHALATION RT-BID 04/09/19 12/31/20 230-21 Mcg Inhaler] Pregabalin [Lyrica] 100 mg PO TID 04/09/19 12/31/20 Montelukast [Singulair] 10 mg PO HS 08/01/19 12/31/20 Nystatin 500,000 unit PO QID PRN 08/01/19 12/31/20 Budesonide [Pulmicort] 0.5 mg INHALATION RT-BID 03/31/20 12/31/20 ALPRAZolam [Xanax] 0.25 mg PO HS PRN 07/21/20 12/31/20 ALPRAZolam [Xanax] 0.5 mg PO TID 07/21/20 12/31/20 Cyclobenzaprine [Flexeril] 10 mg PO TID PRN 07/21/20 12/31/20 Furosemide [Lasix] 20 mg PO BID 07/21/20 12/31/20 Magnesium Oxide [Magox 400] 400 mg PO DAILY@1200 07/21/20 12/31/20 Pantoprazole [Protonix] 40 mg PO DAILY 07/21/20 12/31/20 Pravastatin Sodium [Pravachol] 10 mg PO HS 07/21/20 12/31/20 Promethazine 6.25MG/5Ml [Phenergan 6.25 mg PO DIRECTED PRN 07/21/20 12/31/20 Syrup] Ubidecarenone [Co Q-10] 200 mg PO DAILY@1200 07/21/20 12/31/20 Vitamin B-Complex W/Vit C 1 tab PO DAILY 07/21/20 12/31/20 busPIRone HCl [Buspar] 20 mg PO BID 07/21/20 12/31/20 Ascorbic Acid [Vitamin C] 2,000 mg PO DAILY 09/15/20 12/31/20 predniSONE 20 mg PO DIRECTED 12/31/20 12/31/20 Previous Rx's Medication Instructions Recorded Hydrocodone/Acetaminophen [[place] 1 tab PO Q6HR PRN 3 Days #10 tab 05/07/20 5-325] Acetaminophen Tab [Tylenol] 650 mg PO Q6HR PRN tab 07/27/20 Albuterol Inhaler [Ventolin Hfa 2 puff INHALATION RT-QID PRN #1 07/27/20 Inhaler] puff Cholecalciferol [Vitamin D3 (25 2,000 unit PO DAILY #30 tab 07/27/20 Mcg = 1000 Iu)] Famotidine [Pepcid] 20 mg PO DAILY #30 tab 07/27/20 Fluticasone Nasal [place] [Flonase 1 spray EA NOSTRIL DAILY spr 07/27/20 Nasal [place]] Ipratropium-Albuterol Nebulize 3 ml INHALATION RT-TID PRN #1 neb 07/27/20 [Duoneb 0.5 mg-3 mg/3 ml Soln] Zinc Sulfate [Orazinc] 220 mg PO DAILY #30 cap 07/27/20 guaiFENesin [Mucinex] 600 mg PO BID PRN tablet.er 07/27/20 Allergies Allergy/AdvReac Type Severity Reaction Status Date / Time crisaborole [From Eucrisa] Allergy Rash/Hives Verified 01/09/21 17:21 indomethacin sodium Allergy severe Verified 01/09/21 17:21 [From Indocin] Confusion cefuroxime axetil AdvReac Severe Abdominal Verified 01/09/21 17:21 [From Ceftin] Pain ciprofloxacin HCl AdvReac Severe Abdominal Verified 01/09/21 17:21 [From Cipro] Pain erythromycin base AdvReac Unknown Abdominal Verified 01/09/21 17:21 [Erythromycin Base] Pain sulfamethoxazole AdvReac Unknown Abdominal Verified 01/09/21 17:21 [From Bactrim] Pain trimethoprim [From Bactrim] AdvReac Unknown Abdominal Verified 01/09/21 17:21 Pain NSAIDS (Non-Steroidal AdvReac Dyspnea Verified 01/09/21 17:21 Anti-Inflamma Penicillins AdvReac Nausea & Verified 01/09/21 17:21 Vomiting Sulfa (Sulfonamide AdvReac Abdominal Verified 01/09/21 17:21 Antibiotics) Pain Review of Systems ROS Statement: Those systems with pertinent positive or pertinent negative responses have been documented in the HPI. ROS Other: All systems not noted in ROS Statement are negative. Past Medical History Past Medical History: Asthma, COPD, Diabetes Mellitus, Eye Disorder, Fibromyalgia, GERD/Reflux, Hyperlipidemia, Hypertension, Musculoskeletal D isorder, Pneumonia, Respiratory Disorder, Skin Disorder Additional Past Medical History / Comment(s): Bronchial asthma, tracheobronchomalacia, common variable immunoglobulin deficiency. Chronic back problems. chronic steroid use, suspected component of adrenal insufficiency due to chronic steroid use. Hiatal hernia. 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 Pneumonia / In ICU in [place] after Back surgery - March 2019. Mycobacterium gordonae soft tissue infection. cataracts, glaucoma, fibromyalgia, chronic pain, compression fracture of the spine. covid [id number] History of Any Multi-Drug Resistant Organisms: MRSA Date of last positivie culture/infection: 2010 MDRO Source:: right hand Past Surgical History: Appendectomy, Back Surgery, Breast Surgery, [place] cystectomy, Tubal Ligation Additional Past Surgical History / Comment(s): MULT BRONCHS, WASHINGS, LAST 04/17/14. EXC [facility] CATARACT. BLEPHAROPLASTY/ R&L BREAST BIOPSIES; PORT A CATH IN LEFT CHEST-CHANGED TO RT CHEST,EXC MYCOBACTERIUM AREAS RT ARM 2011; UPPER TEETH EXTRACTED. RT SALPINGECTOMY/FALLOPIAN TUBE REMOVED, I&D BOIL.Jul [facility]; - mouth (bone) surgery. Pain pump insertion to left buttocks - October 2016. Colonoscopy 2014. Hiatal hernia surgeries 2014&2015. Back surgery (Decompresssion) - February 2019 Past Anesthesia/Blood Transfusion Reactions: Motion Sickness, Postoperative Nausea & Vomiting (PONV) Past Psychological History: Anxiety, Depression Smoking Status: Never smoker Past Alcohol Use History: None Reported Past Drug Use History: None Reported - Past Family History Mother Family Medical History: Cancer Additional Family Medical History / Comment(s): BREAST CANCER. Father Additional Family Medical History / Comment(s): r/t suicide General Exam Limitations: no limitations General appearance: alert, in no apparent distress Head exam: Present: atraumatic, normocephalic Eye exam: Present: normal appearance, EOMI ENT exam: Present: mucous membranes moist Neck exam: Present: other (Trachea is in midline) Respiratory exam: Present: wheezes, other (Equal breath sounds bilaterally). Absent: respiratory distress, rales, rhonchi, stridor Cardiovascular Exam: Present: regular rate, normal rhythm, normal heart sounds, other (Normal radial pulses bilaterally) GI/Abdominal exam: Present: soft. Absent: distended, tenderness, guarding Extremities exam: Present: other (Negative Homans sign bilaterally). Absent: tenderness, pedal edema, calf tenderness Neurological exam: Present: alert, oriented X3. Absent: motor sensory deficit Psychiatric exam: Present: normal affect, normal mood Skin exam: Present: warm, dry, intact, normal color Course Vital Signs 01/09/21 01/09/21 01/09/21 17:21 18:43 18:50 Temperature 98.2 F Pulse Rate 104 H 70 70 Respiratory 20 18 Rate Blood Pressure 126/64 154/75 O2 Sat by Pulse 95 98 Oximetry 01/09/21 19:08 Temperature Pulse Rate 72 Respiratory Rate Blood Pressure O2 Sat by Pulse Oximetry - Reevaluation(s) Reevaluation #1: 01/09/21 19:18 Patient states that her dyspnea/symptoms have now improved, and she denies development of any new symptoms while in the ED. Patient's wheezing has now resolved on examination. Patient remains alert and breathing comfortably with a normal room air oxygen saturation. Patient and are aware the patient's test results, and patient feels comfortable going home with her at this time. Patient was counseled about asthma exacerbations, and she was clearly explained return and follow-up instructions. Patient was instructed to have a low threshold for return to the ED should her symptoms worsen. Patient was instructed follow up closely with her primary care provider. Patient was also instructed to continue giving herself home albuterol nebulizer treatments as prescribed/as needed. Patient is on daily prednisone therapy as well. EKG Findings - EKG Comments: EKG Findings:: Normal sinus rhythm, no ectopy, ventricular rate of 100 bpm, normal [place] and QRS intervals, normal QT interval, normal axis, no ST or T-wave abnormality Medical Decision Making - Medical Decision Making Patient is afebrile. Patient's Covid study is negative. Patient's troponin and BNP are within normal limits. Patient's chest x-ray is fairly unremarkable. I suspect that the patient's symptoms are likely secondary to an asthma exacerbation. Patient's dyspnea and wheezing have improved with ED treatment, and patient feels comfortable going home at this time. Will discharge patient home with her at this time. - Lab Data Result diagrams: 01/09/21 18:03 01/09/21 18:03 Lab Results 01/09/21 01/09/21 01/09/21 Range/Units 18:03 18:03 18:03 WBC 10.8 H (3.8-10.6) k/uL RBC 4.67 (3.80-5.40) m/uL Hgb 12.0 (11.4-16.0) gm/dL Hct 38.8 (34.0-46.0) % MCV 83.0 (80.0-100.0) fL MCH 25.8 (25.0-35.0) pg MCHC 31.0 (31.0-37.0) g/dL RDW 18.9 H (11.5-15.5) % Plt Count 197 (150-450) k/uL MPV 8.7 Neutrophils % 79 % Lymphocytes % 12 % Monocytes % 6 % Eosinophils % 0 % Basophils % 0 % Neutrophils # 8.5 H (1.3-7.7) k/uL Lymphocytes # 1.3 (1.0-4.8) k/uL Monocytes # 0.6 (0-1.0) k/uL Eosinophils # 0.1 (0-0.7) k/uL Basophils # 0.0 (0-0.2) k/uL Hypochromasia Slight Anisocytosis Slight Microcytosis Slight PT 9.8 (9.0-12.0) sec INR 0.9 (<1.2) APTT 20.3 L (22.0-30.0) sec Sodium 139 (137-145) mmol/L Potassium 3.8 (3.5-5.1) mmol/L Chloride 102 (98-107) mmol/L Carbon Dioxide 33 H (22-30) mmol/L Anion Gap 4 mmol/L BUN 19 H (7-17) mg/dL Creatinine 0.82 (0.52-1.04) mg/dL Est GFR (CKD-EPI)AfAm 86 (>60 ml/min/1.73 sqM) Est GFR (CKD-EPI)NonAf 74 (>60 ml/min/1.73 sqM) Glucose 202 H (74-99) mg/dL Plasma Lactic Acid Geovanni (0.7-2.0) mmol/L Calcium 8.8 (8.4-10.2) mg/dL Total Bilirubin 0.2 (0.2-1.3) mg/dL AST 41 H (14-36) U/L ALT 40 H (4-34) U/L Alkaline Phosphatase 108 (38-126) U/L Troponin I (0.000-0.034) ng/mL NT-Pro-B Natriuret Pep pg/mL Total Protein 5.9 L (6.3-8.2) g/dL Albumin 3.4 L (3.5-5.0) g/dL Coronavirus (PCR) (Not Detectd) 01/09/21 01/09/2101/09/21 Range/Units 18:03 18:03 18:03 WBC (3.8-10.6) k/uL RBC (3.80-5.40) m/uL Hgb (11.4-16.0) gm/dL Hct (34.0-46.0) % MCV (80.0-100.0) fL MCH (25.0-35.0) pg MCHC (31.0-37.0) g/dL RDW (11.5-15.5) % Plt Count (150-450) k/uL MPV Neutrophils % % Lymphocytes % % Monocytes % % Eosinophils % % Basophils % % Neutrophils # (1.3-7.7) k/uL Lymphocytes # (1.0-4.8) k/uL Monocytes # (0-1.0) k/uL Eosinophils # (0-0.7) k/uL Basophils # (0-0.2) k/uL Hypochromasia Anisocytosis Microcytosis PT (9.0-12.0) sec INR (<1.2) APTT (22.0-30.0) sec Sodium (137-145) mmol/L Potassium (3.5-5.1) mmol/L Chloride (98-107) mmol/L Carbon Dioxide (22-30) mmol/L Anion Gap mmol/L BUN (7-17) mg/dL Creatinine (0.52-1.04) mg/dL Est GFR (CKD-EPI)AfAm (>60 ml/min/1.73 sqM) Est GFR (CKD-EPI)NonAf (>60 ml/min/1.73 sqM) Glucose (74-99) mg/dL Plasma Lactic Acid [place] 1.6 (0.7-2.0) mmol/L Calcium (8.4-10.2) mg/dL Total Bilirubin (0.2-1.3) mg/dL AST (14-36) U/L ALT (4-34) U/L Alkaline Phosphatase (38-126) U/L Troponin I <0.012 (0.000-0.034) ng/mL NT-Pro-B Natriuret Pep 65 pg/mL Total Protein (6.3-8.2) g/dL Albumin (3.5-5.0) g/dL Coronavirus (PCR) (Not Detectd) 01/09/21 Range/Units 18:09 WBC (3.8-10.6) k/uL RBC (3.80-5.40) m/uL Hgb (11.4-16.0) gm/dL Hct (34.0-46.0) % MCV (80.0-100.0) fL MCH (25.0-35.0) pg MCHC (31.0-37.0) g/dL RDW (11.5-15.5) % Plt Count (150-450) k/uL MPV Neutrophils % % Lymphocytes % % Monocytes % % Eosinophils % % Basophils % % Neutrophils # (1.3-7.7) k/uL Lymphocytes # (1.0-4.8) k/uL Monocytes # (0-1.0) k/uL Eosinophils # (0-0.7) k/uL Basophils # (0-0.2) k/uL Hypochromasia Anisocytosis Microcytosis PT (9.0-12.0) sec INR (<1.2) APTT (22.0-30.0) sec Sodium (137-145) mmol/L Potassium (3.5-5.1) mmol/L Chloride (98-107) mmol/L Carbon Dioxide (22-30) mmol/L Anion Gap mmol/L BUN (7-17) mg/dL Creatinine (0.52-1.04) mg/dL Est GFR (CKD-EPI)AfAm (>60 ml/min/1.73 sqM) Est GFR (CKD-EPI)NonAf (>60 ml/min/1.73 sqM) Glucose (74-99) mg/dL Plasma Lactic Acid Geovanni (0.7-2.0) mmol/L Calcium (8.4-10.2) mg/dL Total Bilirubin (0.2-1.3) mg/dL AST (14-36) U/L ALT (4-34) U/L Alkaline Phosphatase (38-126) U/L Troponin I (0.000-0.034) ng/mL NT-Pro-B Natriuret Pep pg/mL Total Protein (6.3-8.2) g/dL Albumin (3.5-5.0) g/dL Coronavirus (PCR) Not Detected (Not Detectd) - Radiology Data Radiology results: report reviewed (Chest x-ray: Mild atelectasis at left lung base, there is clearing of pulmonary vascular congestion and most of pleural reaction compared to old exam) Disposition Clinical Impression: Asthma with acute exacerbation Disposition: HOME SELF-CARE Condition: Stable Instructions (If sedation given, give patient instructions): Asthma (ED) Additional Instructions: Return to the ER immediately should you develop increased shortness of breath, chest pain, a fever, vomiting, feeling dizzy or faint, or new or worsening symptoms. Follow up closely with your primary care provider. Is patient prescribed a controlled substance at d/c from ED?: No Referrals: Ponce Kothari MD [Primary Care Provider] - 1-2 days Time of Disposition: 19:29
[2021-01-09] MEDS ORDERED: IPRATROPIUM-ALBUTEROL 3 ML NEB INHALATION STA (17:37)
[2021-01-09 18:11] LABS: Anisocytosis Slight; Basophils % (A) 0 %; Eosinophils # (A) 0.1 k/uL (0-0.7); Eosinophils % (A) 0 %; HCT 38.8 % (34.0-46.0); Hypochromasia Slight; Lymphocytes # (A) 1.3 k/uL (1.0-4.8); Lymphocytes % (A) 12 %; MCH 25.8 pg (25.0-35.0); Mean Platelet Volume 8.7; Microcytosis Slight; Monocytes # (A) 0.6 k/uL (0-1.0); Monocytes % (A) 6 %; Neutrophils # (A) 8.5 k/uL (1.3-7.7); Neutrophils % (A) 79 %; Platelet Count 197 k/uL (150-450); RBC 4.67 m/uL (3.80-5.40); RDW 18.9 % (11.5-15.5); WBC 10.8 k/uL (3.8-10.6)
[2021-01-09 18:19] LABS: Albumin 3.4 g/dL (3.5-5.0); Calcium 8.8 mg/dL (8.4-10.2); Potassium 3.8 mmol/L (3.5-5.1); Total Bilirubin 0.2 mg/dL (0.2-1.3); Total Protein 5.9 g/dL (6.3-8.2)
[2021-01-09 18:27] LABS: INR 0.9 (<1.2); Prothrombin Time 9.8 sec (9.0-12.0)
[2021-01-09 18:28] LABS: Partial Thromboplastin Time 20.3 sec (22.0-30.0)
--- NOTE | 2021-01-09 18:35 | XR ---
EXAMINATION TYPE: XR chest 2V DATE OF EXAM: 01/09/2021 COMPARISON: 12/27/2020 HISTORY: Short of breath There is right central venous catheter with tip in the right atrium. There is some atelectasis at th e left lung base. There is no heart failure. Lungs are clear of consolidation. There is thoracic kyph otic deformity. There is anterior wedging of lower thoracic and upper lumbar vertebra. IMPRESSION: Mild atelectasis at the left lung base. There is clearing of the pulmonary vascular conge stion and most of pleural reaction compared to old exam.
[2021-01-09 18:44] VITALS: RESP 18
[2021-01-09 19:43] VITALS: BP 129/72; PULSE 89; TEMP 98.1
== END 2021-01-09 19:44 | disposition home or self-care (01) ==
LOC: EC 17:18
DX: J44.1 Chronic obstructive pulmonary disease with (acute) exacerbation (principal); R06.02 Shortness of breath; E11.9 Type 2 diabetes mellitus without complications; K21.9 Gastro-esophageal reflux disease without esophagitis; I10 Essential (primary) hypertension; E78.5 Hyperlipidemia, unspecified; F41.9 Anxiety disorder, unspecified; F32.9 Major depressive disorder, single episode, unspecified; M79.7 Fibromyalgia; Z79.51 Long term (current) use of inhaled steroids; Z79.52 Long term (current) use of systemic steroids; Z79.899 Other long term (current) drug therapy; Z80.3 Family history of malignant neoplasm of breast; Z88.0 Allergy status to penicillin; Z88.1 Allergy status to other antibiotic agents; Z88.6 Allergy status to analgesic agent; Z90.79 Acquired absence of other genital organ(s); Z88.2 Allergy status to sulfonamides
CPT/HCPCS: 36415; 71046; 80053; 83605; 83880; 84484; 85025; 85610; 85730; 87635; 93005; 94640; 99285

== ENCOUNTER 2021-01-13 17:50 | Emergency (ER) | payer MEDICARE ==
--- NOTE | 2021-01-13 20:05 | ED ---
General Adult HPI - General Chief complaint: Shortness of Breath Stated complaint: Asthma Time Seen by Provider: 01/13/21 19:31 Source: patient, family, RN notes reviewed Mode of arrival: wheelchair Limitations: physical limitation - History of Present Illness Initial comments: Patient is a pleasant 65-year-old female presenting to the emergency Department with complaints of cough. Onset of symptoms was today. provides majority of history. and patient feels symptoms are likely related to the change in the weather today. They state once the patient got to the hospital cough and dyspnea have resolved. Patient is symptom-free at this time. Patient is normally prednisone dependent with 20 mg daily. No fevers. - Related Data Home Medications Medication Instructions Recorded Confirmed Escitalopram [Lexapro] 30 mg PO QAM 01/01/14 12/31/20 Spironolactone [Aldactone] 25 mg PO TID 01/01/14 12/31/20 Potassium Chloride ER [K-Dur 20] 60 meq PO BID 11/06/14 12/31/20 Amitriptyline HCl [Elavil] 30 mg PO HS 12/07/14 12/31/20 traZODone HCL 75 mg PO HS 09/10/16 12/31/20 Insulin Aspart (For Pump) [NovoLOG 0.01 unit SQ-PUMP CONTINUOUS 07/24/17 12/31/20 (For Pump)] buPROPion XL [Wellbutrin XL] 450 mg PO DAILY 07/24/17 12/31/20 Fluticasone/Salmeterol [Advair Hfa 2 puff INHALATION RT-BID 04/09/19 12/31/20 230-21 Mcg Inhaler] Pregabalin [Lyrica] 100 mg PO TID 04/09/19 12/31/20 Montelukast [Singulair] 10 mg PO HS 08/01/19 12/31/20 Nystatin 500,000 unit PO QID PRN 08/01/19 12/31/20 Budesonide [Pulmicort] 0.5 mg INHALATION RT-BID 03/31/20 12/31/20 ALPRAZolam [Xanax] 0.25 mg PO HS PRN 07/21/20 12/31/20 ALPRAZolam [Xanax] 0.5 mg PO TID 07/21/20 12/31/20 Cyclobenzaprine [Flexeril] 10 mg PO TID PRN 07/21/20 12/31/20 Furosemide [Lasix] 20 mg PO BID 07/21/20 12/31/20 Magnesium Oxide [Magox 400] 400 mg PO DAILY@1200 07/21/20 12/31/20 Pantoprazole [Protonix] 40 mg PO DAILY 07/21/20 12/31/20 Pravastatin Sodium [Pravachol] 10 mg PO HS 07/21/20 12/31/20 Promethazine 6.25MG/5Ml [Phenergan 6.25 mg PO DIRECTED PRN 07/21/20 12/31/20 Syrup] Ubidecarenone [Co Q-10] 200 mg PO DAILY@1200 07/21/20 12/31/20 Vitamin B-Complex W/Vit C 1 tab PO DAILY 07/21/20 12/31/20 busPIRone HCl [Buspar] 20 mg PO BID 07/21/20 12/31/20 Ascorbic Acid [Vitamin C] 2,000 mg PO DAILY 09/15/20 12/31/20 predniSONE 20 mg PO DIRECTED 12/31/20 12/31/20 Previous Rx's Medication Instructions Recorded Hydrocodone/Acetaminophen [[place] 1 tab PO Q6HR PRN 3 Days #10 tab 05/07/20 5-325] Acetaminophen Tab [Tylenol] 650 mg PO Q6HR PRN tab 07/27/20 Albuterol Inhaler [Ventolin Hfa 2 puff INHALATION RT-QID PRN #1 07/27/20 Inhaler] puff Cholecalciferol [Vitamin D3 (25 2,000 unit PO DAILY #30 tab 07/27/20 Mcg = 1000 Iu)] Famotidine [Pepcid] 20 mg PO DAILY #30 tab 07/27/20 Fluticasone Nasal [place] [Flonase 1 spray EA NOSTRIL DAILY spr 07/27/20 Nasal [place]] Ipratropium-Albuterol Nebulize 3 ml INHALATION RT-TID PRN #1 neb 07/27/20 [Duoneb 0.5 mg-3 mg/3 ml Soln] Zinc Sulfate [Orazinc] 220 mg PO DAILY #30 cap 07/27/20 guaiFENesin [Mucinex] 600 mg PO BID PRN tablet.er 07/27/20 Azithromycin [Zithromax Z-pack (6 250 mg PO DIRECTED #6 tab 01/13/21 tabs)] Allergies Allergy/AdvReac Type Severity Reaction Status Date / Time crisaborole [From Eucrisa] Allergy Rash/Hives Verified 01/13/21 18:26 indomethacin sodium Allergy severe Verified 01/13/21 18:26 [From Indocin] Confusion cefuroxime axetil AdvReac Severe Abdominal Verified 01/13/21 18:26 [From Ceftin] Pain ciprofloxacin HCl AdvReac Severe Abdominal Verified 01/13/21 18:26 [From Cipro] Pain erythromycin base AdvReac Unknown Abdominal Verified 01/13/21 18:26 [Erythromycin Base] Pain sulfamethoxazole AdvReac Unknown Abdominal Verified 01/13/21 18:26 [From Bactrim] Pain trimethoprim [From Bactrim] AdvReac Unknown Abdominal Verified 01/13/21 18:26 Pain NSAIDS (Non-Steroidal AdvReac Dyspnea Verified 01/13/21 18:26 Anti-Inflamma Penicillins AdvReac Nausea & Verified 01/13/21 18:26 Vomiting Sulfa (Sulfonamide AdvReac Abdominal Verified 01/13/21 18:26 Antibiotics) Pain Review of Systems ROS Statement: Those systems with pertinent positive or pertinent negative responses have been documented in the HPI. ROS Other: All systems not noted in ROS Statement are negative. Constitutional: Denies: fever Eyes: Denies: eye pain ENT: Denies: ear pain Respiratory: Reports: as per HPI, cough Cardiovascular: Denies: chest pain Endocrine: Denies: fatigue Gastrointestinal: Denies: abdominal pain Genitourinary: Denies: dysuria Musculoskeletal: Denies: back pain Skin: Denies: rash Neurological: Denies: weakness Past Medical History Past Medical History: Asthma, COPD, Diabetes Mellitus, Eye Disorder, Fibromyalgia, GERD/Reflux, Hyperlipidemia, Hypertension, Musculoskeletal Disorder, Pneumonia, Respiratory Disorder, Skin Disorder Additional Past Medical History / Comment(s): Bronchial asthma, tracheobronchomalacia, common variable immunoglobulin deficiency. Chronic back problems. chronic steroid use, suspected component of adrenal insufficiency due to chronic steroid use. Hiatal hernia. 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 Pneumonia / In ICU in [place] after Back surgery - March 2019. Mycobacterium gordonae soft tissue infection. cataracts, glaucoma, fibromyalgia, chronic pain, compression fracture of the spine. covid History of Any Multi-Drug Resistant Organisms: MRSA Date of last positivie culture/infection: 2010 MDRO Source:: right hand Past Surgical History: Appendectomy, Back Surgery, Breast Surgery, Cholecystectomy, Tubal Ligation Additional Past Surgical History / Comment(s): MULT BRONCHS, WASHINGS, LAST 04/17/14. EXC [facility] CATARACT. BLEPHAROPLASTY/ R&L BREAST BIOPSIES; PORT A CATH IN LEFT CHEST-CHANGED TO RT CHEST,EXC MYCOBACTERIUM AREAS RT ARM 2011; UPPER TEETH EXTRACTED. RT SALPINGECTOMY/FALLOPIAN TUBE REMOVED, I&D BOIL.[facility]; - mouth (bone) surgery. Pain pump insertion to left buttocks - October 2016. Colonoscopy 2014. Hiatal hernia surgeries 2014&2015. Back surgery (Decompresssion) - February 2019 Past Anesthesia/Blood Transfusion Reactions: Motion Sickness, Postoperative Nausea & Vomiting (PONV) Past Psychological History: Anxiety, Depression Smoking Status: Never smoker Past Alcohol Use History: None Reported Past Drug Use History: None Reported - Past Family History Mother Family Medical History: Cancer Additional Family Medical History / Comment(s): BREAST CANCER. Father Additional Family Medical History / Comment(s): r/t suicide General Exam Limitations: physical limitation General appearance: alert, in no apparent distress Head exam: Present: atraumatic Eye exam: Present: normal appearance Neck exam: Present: normal inspection Respiratory exam: Present: rhonchi (mild) Cardiovascular Exam: Present: regular rate, normal rhythm GI/Abdominal exam: Present: soft. Absent: tenderness Extremities exam: Present: normal inspection. Absent: pedal edema, calf tenderness Neurological exam: Present: alert Psychiatric exam: Present: normal affect, normal mood Skin exam: Present: normal color Course Vital Signs 01/13/21 01/13/21 18:23 20:15 Temperature 97.8 F Pulse Rate 91 Respiratory 18 22 Rate Blood Pressure 127/64 O2 Sat by Pulse 96 Oximetry EKG Findings - EKG Comments: EKG Findings:: Normal sinus rhythm with a rate of 88. [place] 156. QRS 88. QT 368. QTC 440 5P left axis. No acute ST change. Anterior lateral Q waves. Medical Decision Making - Medical Decision Making Patient and feel she is symptom-free at this time and are agreeable to having chest x-ray with probable discharge Patient reevaluated and remained symptom-free. Patient and family updated on results. Patient reportedly does have history of [place] virus a proximal he 6 months ago however has also had immunization since then. Patient and family are receptive to a short course of antibiotics and discharged with follow-up. - Radiology Data Radiology results: image reviewed (X-ray shows early infiltrate versus at electasis. Basilar) Disposition Clinical Impression: Asthma with acute exacerbation Disposition: HOME SELF-CARE Condition: Stable Instructions (If sedation given, give patient instructions): Asthma (ED) Additional Instructions: Please do follow-up with Dr. Kothari in the beginning of the week. Return for difficulty breathing, fevers, worsening or changing symptoms or any other concerns. Prescription for anabiotic has been sent to your pharmacy. Prescriptions: Azithromycin [Zithromax Z-pack (6 tabs)] 250 mg PO DIRECTED #6 tab Is patient prescribed a controlled substance at d/c from ED?: No Referrals: Ponce Kothari MD [Primary Care Provider] - 1-2 days Time of Disposition: 21:05
--- NOTE | 2021-01-13 20:23 | XR ---
EXAMINATION TYPE: XR chest 2V DATE OF EXAM: 01/13/2021 COMPARISON: 01/10/2020 HISTORY: Shortness of breath TECHNIQUE: Frontal and lateral views of the chest are obtained. FINDINGS: Scattered senescent parenchymal changes noted. Basilar densities may reflect underlying atelectasis or developing infiltrates. Correlate clinically . Heart size is stable. Mediastinal structures are stable and grossly unremarkable. No evidence for hilar prominence. Degenerative changes dorsal spine. IMPRESSION: Basilar densities may reflect underlying atelectasis or developing infiltrates. Correlate clinically .
[2021-01-13 21:42] VITALS: BP 125/72; PULSE 89; RESP 18; TEMP 98
== END 2021-01-13 21:39 | disposition home or self-care (01) ==
LOC: EC 17:50
DX: J45.901 Unspecified asthma with (acute) exacerbation (principal); E78.5 Hyperlipidemia, unspecified; J44.9 Chronic obstructive pulmonary disease, unspecified; F32.9 Major depressive disorder, single episode, unspecified; I10 Essential (primary) hypertension; E11.39 Type 2 diabetes mellitus with other diabetic ophthalmic complication; H40.9 Unspecified glaucoma; F41.9 Anxiety disorder, unspecified; K21.9 Gastro-esophageal reflux disease without esophagitis; M79.7 Fibromyalgia; Z79.51 Long term (current) use of inhaled steroids; Z79.4 Long term (current) use of insulin; Z79.52 Long term (current) use of systemic steroids; Z79.899 Other long term (current) drug therapy; Z88.0 Allergy status to penicillin
CPT/HCPCS: 71046; 93005; 99285

== ENCOUNTER → 2021-01-19 | Outpatient (CLI) | payer MEDICARE ==
[2021-01-19 19:08] LABS: Hemoglobin A1C 6.7 % (4.0-6.0)
[2021-01-19 20:50] LABS: African American GFR (CKD) 67.5 (60.0-200.0); Albumin 4.4 g/dL (3.80-4.90); Anion Gap 11.2 mmol/L (4.00-12.00); Calcium 9.4 mg/dL (8.7-10.3); Carbon Dioxide 26.8 mmol/L (21.6-31.8); Chol/HDL Ratio 2.46; Globulin 2.2 g/dL (1.6-3.3); LDL Cholesterol,Calculated 71.6 mg/dL (0.0-131.0); Non-African American GFR(CKD) 58.2 (60.0-200.0); Potassium 5.1 mmol/L (3.5-5.5); Total Bilirubin 0.2 mg/dL (0.3-1.2); Total Protein 6.6 g/dL (6.2-8.2); VLDL Calculation 36.4 mg/dL (5.00-40.00)
[2021-01-20 03:28] LABS: Urine Creatinine 14.7 mg/dL
== END ==
LOC: LABWHC1 09:52
PROVIDERS: ATTEND Internal Medicine Endocrinology, Diabetes & Metabolism
DX: E10.65 Type 1 diabetes mellitus with hyperglycemia (principal)
CPT/HCPCS: 36415; 80053; 80061; 82043; 82570; 83036; 84443

== ENCOUNTER 2021-01-22 09:22 | Emergency (ER) | payer MEDICARE ==
[2021-01-22 09:26] VITALS: RESP 18; TEMP 98.2
[2021-01-22] MEDS ORDERED: IPRATROPIUM-ALBUTEROL 3 ML NEB INHALATION STA (09:38)
[2021-01-22] MEDS ORDERED: SODIUM CHLORIDE 0.9% 500 ML 500 ML IV STA (09:38)
[2021-01-22] MEDS ORDERED: methylPREDNISolone SOD SUCCI 125 MG/2 ML VIAL IV STA (09:38)
--- NOTE | 2021-01-22 09:43 | ED ---
General Adult HPI - General Chief complaint: Shortness of Breath Stated complaint: asthma Time Seen by Provider: 01/22/21 09:30 Source: patient, family, RN notes reviewed, old records reviewed Mode of arrival: ambulatory Limitations: no limitations - History of Present Illness Initial comments: This patient's a 65-year-old female who has presented to the ER for the third time within this past month with chief complaint of cough and difficulty breathing. She does report a history of asthma. 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 She reports they've an upcoming appointment next week. Patient states after her last ER visit on January 12 she was started on azithromycin. She reports that that seems to never really help and she does better with Levaquin when antibiotics are initiated. Patient states that she was up all night coughing and dry nonproductive cough. She is on maintenance 20 mg of prednisone daily. Patient's history is mainly from the as she has a history of memory impairment and dressed her answer most questions for her. Pt's last breathing treatment was at 4:30 AM. - Related Data Home Medications Medication Instructions Recorded Confirmed Escitalopram [Lexapro] 30 mg PO QAM 01/01/14 12/31/20 Spironolactone [Aldactone] 25 mg PO TID 01/01/14 12/31/20 Potassium Chloride ER [K-Dur 20] 60 meq PO BID 11/06/14 12/31/20 Amitriptyline HCl [Elavil] 30 mg PO HS 12/07/14 12/31/20 traZODone HCL 75 mg PO HS 09/10/16 12/31/20 Insulin Aspart (For Pump) [NovoLOG 0.01 unit SQ-PUMP CONTINUOUS 07/24/17 12/31/20 (For Pump)] buPROPion XL [Wellbutrin XL] 450 mg PO DAILY 07/24/17 12/31/20 Fluticasone/Salmeterol [Advair Hfa 2 puff INHALATION RT-BID 04/09/19 12/31/20 230-21 Mcg Inhaler] Pregabalin [Lyrica] 100 mg PO TID 04/09/19 12/31/20 Montelukast [Singulair] 10 mg PO HS 08/01/19 12/31/20 Nystatin 500,000 unit PO QID PRN 08/01/19 12/31/20 Budesonide [Pulmicort] 0.5 mg INHALATION RT-BID 03/31/20 12/31/20 ALPRAZolam [Xanax] 0.25 mg PO HS PRN 07/21/20 12/31/20 ALPRAZolam [Xanax] 0.5 mg PO TID 07/21/20 12/31/20 Cyclobenzaprine [Flexeril] 10 mg PO TID PRN 07/21/20 12/31/20 Furosemide [Lasix] 20 mg PO BID 07/21/20 12/31/20 Magnesium Oxide [Magox 400] 400 mg PO DAILY@1200 07/21/20 12/31/20 Pantoprazole [Protonix] 40 mg PO DAILY 07/21/20 12/31/20 Pravastatin Sodium [Pravachol] 10 mg PO HS 07/21/20 12/31/20 Promethazine 6.25MG/5Ml [Phenergan 6.25 mg PO DIRECTED PRN 07/21/20 12/31/20 Syrup] Ubidecarenone [Co Q-10] 200 mg PO DAILY@1200 07/21/20 12/31/20 Vitamin B-Complex W/Vit C 1 tab PO DAILY 07/21/20 12/31/20 busPIRone HCl [Buspar] 20 mg PO BID 07/21/20 12/31/20 Ascorbic Acid [Vitamin C] 2,000 mg PO DAILY 09/15/20 12/31/20 predniSONE 20 mg PO DIRECTED 12/31/20 12/31/20 Previous Rx's Medication Instructions Recorded Hydrocodone/Acetaminophen [[place] 1 tab PO Q6HR PRN 3 Days #10 tab 05/07/20 5-325] Acetaminophen Tab [Tylenol] 650 mg PO Q6HR PRN tab 07/27/20 Albuterol Inhaler [Ventolin Hfa 2 puff INHALATION RT-QID PRN #1 07/27/20 Inhaler] puff Cholecalciferol [Vitamin D3 (25 2,000 unit PO DAILY #30 tab 07/27/20 Mcg = 1000 Iu)] Famotidine [Pepcid] 20 mg PO DAILY #30 tab 07/27/20 Fluticasone Nasal [place] [Flonase 1 spray EA NOSTRIL DAILY spr 07/27/20 Nasal [place]] Ipratropium-Albuterol Nebulize 3 ml INHALATION RT-TID PRN #1 neb 07/27/20 [Duoneb 0.5 mg-3 mg/3 ml Soln] Zinc Sulfate [Orazinc] 220 mg PO DAILY #30 cap 07/27/20 guaiFENesin [Mucinex] 600 mg PO BID PRN tablet.er 07/27/20 Azithromycin [Zithromax Z-pack (6 250 mg PO DIRECTED #6 tab 01/13/21 tabs)] Levofloxacin [Levaquin] 750 mg PO DAILY 6 Days #6 tab 01/22/21 predniSONE [Deltasone] 40 mg PO DAILY #14 tab 01/22/21 Allergies Allergy/AdvReac Type Severity Reaction Status Date / Time crisaborole [From Eucrisa] Allergy Rash/Hives Verified 01/22/21 09:24 indomethacin sodium Allergy severe Verified 01/22/21 09:24 [From Indocin] Confusion cefuroxime axetil AdvReac Severe Abdominal Verified 01/22/21 09:24 [From Ceftin] Pain ciprofloxacin HCl AdvReac Severe Abdominal Verified 01/22/21 09:24 [From Cipro] Pain erythromycin base AdvReac Unknown Abdominal Verified 01/22/21 09:24 [Erythromycin Base] Pain sulfamethoxazole AdvReac Unknown Abdominal Verified 01/22/21 09:24 [From Bactrim] Pain trimethoprim [From Bactrim] AdvReac Unknown Abdominal Verified 01/22/21 09:24 Pain NSAIDS (Non-Steroidal AdvReac Dyspnea Verified 01/22/21 09:24 Anti-Inflamma Penicillins AdvReac Nausea & Verified 01/22/21 09:24 Vomiting Sulfa (Sulfonamide AdvReac Abdominal Verified 01/22/21 09:24 Antibiotics) Pain Review of Systems ROS Statement: Those systems with pertinent positive or pertinent negative responses have been documented in the HPI. ROS Other: All systems not noted in ROS Statement are negative. Past Medical History Past Medical History: Asthma, COPD, Diabetes Mellitus, Eye Disorder, Fibromyalgia, GERD/Reflux, Hyperlipidemia, Hypertension, Musculoskeletal Disorder, Pneumonia, Respiratory Disorder, Skin Disorder Additional Past Medical History / Comment(s): Bronchial asthma, tracheobronchomalacia, common variable immunoglobulin deficiency. Chronic back problems. chronic steroid use, suspected component of adrenal insufficiency due to chronic steroid use. Hiatal hernia. 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 Pneumonia / In ICU in [place] after Back surgery - March 2019. Mycobacterium gordonae soft tissue infection. cataracts, glaucoma, fibromyalgia, chronic pain, compression fracture of the spine. covid History of Any Multi-Drug Resistant Organisms: MRSA Date of last positivie culture/infection: 2010 MDRO Source:: right hand Past Surgical History: Appendectomy, Back Surgery, Breast Surgery, Cho lecystectomy, Tubal Ligation Additional Past Surgical History / Comment(s): MULT BRONCHS, WASHINGS, LAST 04/17/14. EXC [facility]MA CATARACT. BLEPHAROPLASTY/ R&L BREAST BIOPSIES; PORT A CATH IN LEFT CHEST-CHANGED TO RT CHEST,EXC MYCOBACTERIUM AREAS RT ARM 2011; UPPER TEETH EXTRACTED. RT SALPINGECTOMY/FALLOPIAN TUBE REMOVED, I&D BOIL.Jul [facility] MUSCLE SURGERY; - mouth (bone) surgery. Pain pump insertion to left buttocks - October 2016. Colonoscopy 2014. Hiatal hernia surgeries 2014&2015. Back surgery (Decompresssion) - February 2019 Past Anesthesia/Blood Transfusion Reactions: Motion Sickness, Postoperative Nausea & Vomiting (PONV) Past Psychological History: Anxiety, Depression Smoking Status: Never smoker Past Alcohol Use History: None Reported Past Drug Use History: None Reported - Past Family History Mother Family Medical History: Cancer Additional Family Medical History / Comment(s): BREAST CANCER. Father Additional Family Medical History / Comment(s): r/t suicide General Exam - General Exam Comments Initial Comments: 65-year-old female. Patient is resting in bed. Oxygen saturation 93% on room air. Limitations: no limitations General appearance: alert, in no apparent distress Head exam: Present: atraumatic, normocephalic, normal inspection Eye exam: Present: normal appearance, PERRL, EOMI. Absent: scleral icterus, conjunctival injection, periorbital swelling ENT exam: Present: normal exam, mucous membranes moist Neck exam: Present: normal inspection. Absent: tenderness, meningismus, lymphadenopathy Respiratory exam: Present: wheezes, rhonchi. Absent: normal lung sounds bilaterally, respiratory distress, rales, stridor Cardiovascular Exam: Present: regular rate, normal rhythm, normal heart sounds. Absent: systolic murmur, diastolic murmur, rubs, gallop, clicks GI/Abdominal exam: Present: soft, normal bowel sounds. Absent: distended, tenderness, guarding, rebound, rigid Extremities exam: Present: normal inspection, full ROM, normal capillary refill. Absent: tenderness, pedal edema, joint swelling, calf tenderness Back exam: Present: normal inspection Course Vital Signs 01/22/21 01/22/21 01/22/21 09:24 10:22 10:32 Temperature 98.2 F Pulse Rate 86 85 80 Respiratory 18 Rate Blood Pressure 114/55 O2 Sat by Pulse 93 L Oximetry 01/22/21 10:34 Temperature Pulse Rate 82 Respiratory 18 Rate Blood Pressure 132/71 O2 Sat by Pulse 93 L Oximetry Medical Decision Making - Medical Decision Making Family is a 65-year-old female with a history of asthma. She's been to the ER multiple times this past month for similar exacerbations. She is coughing all night. Her ER visit Patient was given IV Solu-Medrol and DuoNeb breathing treatment. She does report improvement. She was evaluated by Dr. Kothari in the emergency department and recommended discharge with outpatient follow-up at his clinic. Patient will be discharged with Levaquin and increase steroids to 40 mg daily. - Lab Data Result diagrams: 01/22/21 10:05 01/22/21 10:05 Lab Results 01/22/21 01/22/21 Range/Units 10:05 10:05 WBC 13.5 H (3.8-10.6) k/uL RBC 4.89 (3.80-5.40) m/uL Hgb 12.3 (11.4-16.0) gm/dL Hct 40.3 (34.0-46.0) % MCV 82.5 (80.0-100.0) fL MCH 25.1 (25.0-35.0) pg MCHC 30.4 L (31.0-37.0) g/dL RDW 16.5 H (11.5-15.5) % Plt Count 199 (150-450) k/uL MPV 8.3 Neutrophils % 93 % Lymphocytes % 3 % Monocytes % 3 % Eosinophils % 0 % Basophils % 0 % Neutrophils # 12.6 H (1.3-7.7) k/uL Lymphocytes # 0.5 L (1.0-4.8) k/uL Monocytes # 0.4 (0-1.0) k/uL Eosinophils # 0.1 (0-0.7) k/uL Basophils # 0.0 (0-0.2) k/uL Hypochromasia Slight Anisocytosis Slight Sodium 139 (137-145) mmol/L Potassium 4.6 (3.5-5.1) mmol/L Chloride 103 (98-107) mmol/L Carbon Dioxide 31 H (22-30) mmol/L Anion Gap 5 mmol/L BUN 23 H (7-17) mg/dL Creatinine 0.95 (0.52-1.04) mg/dL Est GFR (CKD-EPI)AfAm 72 (>60 ml/min/1.73 sqM) Est GFR (CKD-EPI)NonAf 63 (>60 ml/min/1.73 sqM) Glucose 165 H (74-99) mg/dL Calcium 8.8 (8.4-10.2) mg/dL Magnesium 2.6 H (1.6-2.3) mg/dL Total Bilirubin 0.2 (0.2-1.3) mg/dL AST 46 H (14-36) U/L ALT 42 H (4-34) U/L Alkaline Phosphatase 111 (38-126) U/L Total Protein 6.2 L (6.3-8.2) g/dL Albumin 3.8 (3.5-5.0) g/dL - Radiology Data Radiology results: report reviewed Chest x-ray shows probable basilar atelectasis or scarring. Disposition Clinical Impression: Asthmatic bronchitis Disposition: HOME SELF-CARE Condition: Good Instructions (If sedation given, give patient instructions): Bronchospasm (ED) Additional Instructions: Start the prescription of Levaquin tomorrow. Take the dose continued to the emergency department today. Patient can take 40 mg of prednisone tomorrow as well as you had a high dose of steroid in her IV. Return to the emergency department if any alarming signs or symptoms occur. Patient should follow-up with Dr. Kothari next week Prescriptions: predniSONE [Deltasone] 40 mg PO DAILY #14 tab Levofloxacin [Levaquin] 750 mg PO DAILY 6 Days #6 tab Is patient prescribed a controlled substance at d/c from ED?: No Referrals: Ponce Kothari MD [Primary Care Provider] - 1-2 days Time of Disposition: 10:49
[2021-01-22 10:14] LABS: Anisocytosis Slight; Basophils % (A) 0 %; Eosinophils # (A) 0.1 k/uL (0-0.7); Eosinophils % (A) 0 %; HCT 40.3 % (34.0-46.0); HGB 12.3 gm/dL (11.4-16.0); Hypochromasia Slight; Lymphocytes # (A) 0.5 k/uL (1.0-4.8); Lymphocytes % (A) 3 %; MCH 25.1 pg (25.0-35.0); MCHC 30.4 g/dL (31.0-37.0); MCV 82.5 fL (80.0-100.0); Mean Platelet Volume 8.3; Monocytes # (A) 0.4 k/uL (0-1.0); Monocytes % (A) 3 %; Neutrophils # (A) 12.6 k/uL (1.3-7.7); Neutrophils % (A) 93 %; Platelet Count 199 k/uL (150-450); RBC 4.89 m/uL (3.80-5.40); RDW 16.5 % (11.5-15.5); WBC 13.5 k/uL (3.8-10.6)
--- NOTE | 2021-01-22 10:21 | XR ---
EXAMINATION TYPE: XR chest 2V DATE OF EXAM: 01/22/2021 COMPARISON: Chest x-ray 01/13/2021 HISTORY: Difficulty breathing, cough and shortness of breath TECHNIQUE: Frontal and lateral views of the chest are obtained. FINDINGS: There is no significant interval change. Port-A-Cath is present on the right by jugular ap proach and the distal tip is in the right atrium. No evident pneumothorax or pleural effusion. Cardio mediastinal silhouette is stable. Some patchy bandlike density at the left lung base likely represent s scarring. Cardiac mediastinal silhouette is unchanged. IMPRESSION: Probable basilar atelectasis or scarring
[2021-01-22 10:28] LABS: Albumin 3.8 g/dL (3.5-5.0); Calcium 8.8 mg/dL (8.4-10.2); Magnesium 2.6 mg/dL (1.6-2.3); Potassium 4.6 mmol/L (3.5-5.1); Total Bilirubin 0.2 mg/dL (0.2-1.3); Total Protein 6.2 g/dL (6.3-8.2)
[2021-01-22 10:35] VITALS: BP 132/71; PULSE 82
[2021-01-22] MEDS ORDERED: LEVOFLOXACIN 750 MG TAB PO STA (10:47)
== END 2021-01-22 11:13 | disposition home or self-care (01) ==
LOC: EC 09:22
DX: J44.9 Chronic obstructive pulmonary disease, unspecified (principal); E11.9 Type 2 diabetes mellitus without complications; M79.7 Fibromyalgia; E78.5 Hyperlipidemia, unspecified; F32.9 Major depressive disorder, single episode, unspecified; I10 Essential (primary) hypertension; F41.9 Anxiety disorder, unspecified; K21.9 Gastro-esophageal reflux disease without esophagitis; Z79.4 Long term (current) use of insulin; Z79.51 Long term (current) use of inhaled steroids; Z79.52 Long term (current) use of systemic steroids; Z79.899 Other long term (current) drug therapy; Z80.3 Family history of malignant neoplasm of breast; Z88.0 Allergy status to penicillin; Z88.1 Allergy status to other antibiotic agents; Z88.2 Allergy status to sulfonamides; Z88.6 Allergy status to analgesic agent; Z90.79 Acquired absence of other genital organ(s)
CPT/HCPCS: 36415; 94640; 80053; 83735; 85025; 71046; 99285; 96374; J2930

== ENCOUNTER 2021-02-05 23:09 | Emergency (ER) | payer MEDICARE ==
[2021-02-05 23:17] VITALS: BP 153/72; PULSE 93; RESP 18; TEMP 97.9
[2021-02-05] MEDS ORDERED: MAG HYDROX/AL HYDROX/SIMETH 30 ML, HYOSCYAMINE ELIXIR 10 ML, LIDOCAINE VISCOUS 2% 10 ML PO STA ×3 (23:52)
--- NOTE | 2021-02-05 23:57 | ED ---
Abdominal Pain HPI - General Chief Complaint: Abdominal Pain Stated Complaint: Acid reflux Time Seen by Provider: 02/05/21 23:24 Source: patient, family Mode of arrival: ambulatory Limitations: no limitations - History of Present Illness Initial Comments: This patient is a 65-year-old woman with history of severe reflux disease, who presents with exacerbation of same. She had tried going to sleep a little after 8 PM. She then started experiencing epigastric burning that does radiates up the substernal area into the posterior pharynx. The patient has had this previously. She was seen here approximate 5 weeks ago for the same and received GI cocktail that relieved his symptoms nearly instantly. Patient has long- standing history of the same and had been seen by Dr. Johnson who reportedly had been considering a procedure but they state they may need to go through with that now. MD Complaint: other Onset/Timin -: hour(s) Location: epigastric Radiation: chest Migration to: no migration Severity: severe Quality: burning Consistency: constant Improves With: nothing Worsens With: nothing Associated Symptoms: denies other symptoms Treatments Prior to Arrival: antacids - Related Data Home Medications Medication Instructions Recorded Confirmed Escitalopram [Lexapro] 30 mg PO QAM 01/01/14 01/28/21 Spironolactone [Aldactone] 25 mg PO TID 01/01/14 01/28/21 Potassium Chloride ER [K-Dur 20] 60 meq PO BID 11/06/14 01/28/21 Amitriptyline HCl [Elavil] 30 mg PO HS 12/07/14 01/28/21 traZODone HCL 75 mg PO HS 09/10/16 01/28/21 Insulin Aspart (For Pump) [NovoLOG 0.01 unit SQ-PUMP CONTINUOUS 07/24/17 01/28/21 (For Pump)] buPROPion XL [Wellbutrin XL] 450 mg PO DAILY 07/24/17 01/28/21 Fluticasone/Salmeterol [Advair Hfa 2 puff INHALATION RT-BID 04/09/19 01/28/21 230-21 Mcg Inhaler] Pregabalin [Lyrica] 100 mg PO TID 04/09/19 01/28/21 Montelukast [Singulair] 10 mg PO HS 08/01/19 01/28/21 Nystatin 500,000 unit PO QID PRN 08/01/19 01/28/21 Budesonide [Pulmicort] 0.5 mg INHALATION RT-BID 03/31/20 01/28/21 ALPRAZolam [Xanax] 0.25 mg PO HS PRN 07/21/20 01/28/21 ALPRAZolam [Xanax] 0.5 mg PO TID 07/21/20 01/28/21 Cyclobenzaprine [Flexeril] 10 mg PO TID PRN 07/21/20 01/28/21 Furosemide [Lasix] 20 mg PO BID 07/21/20 01/28/21 Magnesium Oxide [Magox 400] 400 mg PO DAILY@1200 07/21/20 01/28/21 Pantoprazole [Protonix] 40 mg PO DAILY 07/21/20 01/28/21 Pravastatin Sodium [Pravachol] 10 mg PO HS 07/21/20 01/28/21 Promethazine 6.25MG/5Ml [Phenergan 6.25 mg PO DIRECTED PRN 07/21/20 01/28/21 Syrup] Ubidecarenone [Co Q-10] 200 mg PO DAILY@1200 07/21/20 01/28/21 Vitamin B-Complex W/Vit C 1 tab PO DAILY 07/21/20 01/28/21 busPIRone HCl [Buspar] 20 mg PO BID 07/21/20 01/28/21 Ascorbic Acid [Vitamin C] 2,000 mg PO DAILY 09/15/20 01/28/21 predniSONE 20 mg PO DIRECTED 12/31/20 01/28/21 Previous Rx's Medication Instructions Recorded Hydrocodone/Acetaminophen [[place] 1 tab PO Q6HR PRN 3 Days #10 tab 05/07/20 5-325] Acetaminophen Tab [Tylenol] 650 mg PO Q6HR PRN tab 07/27/20 Albuterol Inhaler [Ventolin Hfa 2 puff INHALATION RT-QID PRN #1 07/27/20 Inhaler] puff Cholecalciferol [Vitamin D3 (25 2,000 unit PO DAILY #30 tab 07/27/20 Mcg = 1000 Iu)] Famotidine [Pepcid] 20 mg PO DAILY #30 tab 07/27/20 Fluticasone Nasal [place] [Flonase 1 spray EA NOSTRIL DAILY spr 07/27/20 Nasal [place]] Ipratropium-Albuterol Nebulize 3 ml INHALATION RT-TID PRN #1 neb 07/27/20 [Duoneb 0.5 mg-3 mg/3 ml Soln] Zinc Sulfate [Orazinc] 220 mg PO DAILY #30 cap 07/27/20 guaiFENesin [Mucinex] 600 mg PO BID PRN tablet.er 07/27/20 Azithromycin [Zithromax Z-pack (6 250 mg PO DIRECTED #6 tab 01/13/21 tabs)] Levofloxacin [Levaquin] 750 mg PO DAILY 6 Days #6 tab 01/22/21 predniSONE [Deltasone] 40 mg PO DAILY #14 tab 01/22/21 Lidocaine Viscous [Xylocaine 5 ml PO Q3HR PRN #100 ml 02/06/21 Viscous 2%] Allergies Allergy/AdvReac Type Severity Reaction Status Date / Time crisaborole [From Eucrisa] Allergy Rash/Hives Verified 02/05/21 23:17 indomethacin sodium Allergy severe Verified 02/05/21 23:17 [From Indocin] Confusion cefuroxime axetil AdvReac Severe Abdominal Verified 02/05/21 23:17 [From Ceftin] Pain ciprofloxacin HCl AdvReac Severe Abdominal Verified 02/05/21 23:17 [From Cipro] Pain erythromycin base AdvReac Unknown Abdominal Verified 02/05/21 23:17 [Erythromycin Base] Pain sulfamethoxazole AdvReac Unknown Abdominal Verified 02/05/21 23:17 [From Bactrim] Pain trimethoprim [From Bactrim] AdvReac Unknown Abdominal Verified 02/05/21 23:17 Pain NSAIDS (Non-Steroidal AdvReac Dyspnea Verified 02/05/21 23:17 Anti-Inflamma Penicillins AdvReac Nausea & Verified 02/05/21 23:17 Vomiting Sulfa (Sulfonamide AdvReac Abdominal Verified 02/05/21 23:17 Antibiotics) Pain Review of Systems ROS Statement: Those systems with pertinent positive or pertinent negative responses have been documented in the HPI. ROS Other: All systems not noted in ROS Statement are negative. Constitutional: Denies: fever, chills Respiratory: Reports: dyspnea (Chronic). Denies: cough, wheezes, hemoptysis Cardiovascular: Reports: as per HPI, chest pain. Denies: palpitations, edema, syncope Gastrointestinal: Reports: as per HPI, abdominal pain. Denies: nausea, vomiting, diarrhea, melena, hematochezia Genitourinary: Denies: dysuria, hematuria Musculoskeletal: Denies: back pain Skin: Denies: rash Neurological: Denies: headache, weakness, numbness Past Medical History Past Medical History: Asthma, COPD, Diabetes Mellitus, Eye Disorder, Fibromyalgia, GERD/Reflux, Hyperlipidemia, Hypertension, Musculoskeletal Disorder, Pneumonia, Respiratory Disorder, Skin Disorder Additional Past Medical History / Comment(s): Bronchial asthma, trach eobronchomalacia, common variable immunoglobulin deficiency. Chronic back problems. chronic steroid use, suspected component of adrenal insufficiency due to chronic steroid use. Hiatal hernia. 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 Pneumonia / In ICU in [place] after Back surgery - March 2019. Mycobacterium gordonae soft tissue infection. cataracts, glaucoma, fibromyalgia, chronic pain, compression fracture of the spine. covid History of Any Multi-Drug Resistant Organisms: MRSA Date of last positivie culture/infection: 2010 MDRO Source:: right hand Past Surgical History: Appendectomy, Back Surgery, Breast Surgery, Cholecystectomy, Tubal Ligation Additional Past Surgical History / Comment(s): MULT BRONCHS, WASHINGS, LAST 04/17/14. EXC OMA CATARACT. BLEPHAROPLASTY/ R&L BREAST BIOPSIES; PORT A CATH IN LEFT CHEST-CHANGED TO RT CHEST,EXC MYCOBACTERIUM AREAS RT ARM 2011; UPPER TEETH EXTRACTED. RT SALPINGECTOMY/FALLOPIAN TUBE REMOVED, I&D BOIL.Jul [facility]; - mouth (bone) surgery. Pain pump insertion to left buttocks - October 2016. Colonoscopy 2014. Hiatal hernia surgeries 2014&2016. Back surgery (Decompresssion) - February 2019 Past Anesthesia/Blood Transfusion Reactions: Motion Sickness, Postoperative Nausea & Vomiting (PONV) Past Psychological History: Anxiety, Depression Smoking Status: Never smoker Past Alcohol Use History: None Reported Past Drug Use History: None Reported - Past Family History Mother Family Medical History: Cancer Additional Family Medical History / Comment(s): BREAST CANCER. Father Additional Family Medical History / Comment(s): r/t suicide General Exam Limitations: no limitations General appearance: alert, in no apparent distress Head exam: Present: atraumatic, normocephalic Eye exam: Present: normal appearance. Absent: scleral icterus, conjunctival injection ENT exam: Present: normal oropharynx Neck exam: Present: normal inspection Respiratory exam: Present: normal lung sounds bilaterally, wheezes (Trace expiratory wheeze). Absent: respiratory distress, rales, rhonchi, stridor, accessory muscle use, decreased breath sounds Cardiovascular Exam: Present: regular rate, normal rhythm, normal heart sounds. Absent: systolic murmur, diastolic murmur, rubs, gallop GI/Abdominal exam: Present: soft. Absent: distended, tenderness, guarding, rebound, rigid, mass, pulsatile mass Extremities exam: Present: normal inspection, normal capillary refill. Absent: pedal edema, calf tenderness Back exam: Present: normal inspection. Absent: CVA tenderness (R), CVA tenderness (L) Neurological exam: Present: alert Skin exam: Present: warm, dry, intact, normal color. Absent: rash Course Vital Signs 02/05/21 23:12 Temperature 97.9 F Pulse Rate 93 Respiratory 18 Rate Blood Pressure 153/72 O2 Sat by Pulse 93 L Oximetry Medical Decision Making - Lab Data Result diagrams: 02/06/21 00:06 02/06/21 00:06 Lab Results 02/06/21 02/06/21 02/06/21 Range/Units 00:06 00:06 00:06 WBC 12.6 H (3.8-10.6) k/uL RBC 4.61 (3.80-5.40) m/uL Hgb 11.9 (11.4-16.0) gm/dL Hct 36.6 (34.0-46.0) % MCV 79.5 L (80.0-100.0) fL MCH 25.9 (25.0-35.0) pg MCHC 32.6 (31.0-37.0) g/dL RDW 15.3 (11.5-15.5) % Plt Count 161 (150-450) k/uL MPV 8.5 Neutrophils % 74 % Lymphocytes % 16 % Monocytes % 7 % Eosinophils % 1 % Basophils % 0 % Neutrophils # 9.3 H (1.3-7.7) k/uL Lymphocytes # 2.0 (1.0-4.8) k/uL Monocytes # 0.9 (0-1.0) k/uL Eosinophils # 0.1 (0-0.7) k/uL Basophils # 0.1 (0-0.2) k/uL Sodium 138 (137-145) mmol/L Potassium 4.2 (3.5-5.1) mmol/L Chloride 101 (98-107) mmol/L Carbon Dioxide 31 H (22-30) mmol/L Anion Gap 6 mmol/L BUN 25 H (7-17) mg/dL Creatinine 0.67 (0.52-1.04) mg/dL Est GFR (CKD-EPI)AfAm >90 (>60 ml/min/1.73 sqM) Est GFR (CKD-EPI)NonAf >90 (>60 ml/min/1.73 sqM) Glucose 171 H (74-99) mg/dL Calcium 9.2 (8.4-10.2) mg/dL Total Bilirubin 0.1 L (0.2-1.3) mg/dL AST 49 H (14-36) U/L ALT 51 H (4-34) U/L Alkaline Phosphatase 135 H (38-126) U/L Troponin I (0.000-0.034) ng/mL Total Protein 6.3 (6.3-8.2) g/dL Albumin 3.6 (3.5-5.0) g/dL Amylase 73 (30-110) U/L Lipase 94 (23-300) U/L Urine Color Light Yellow Urine Appearance Clear (Clear) Urine pH 6.5 (5.0-8.0) Ur Specific [place] 1.009 (1.001-1.035) Urine Protein Negative (Negative) Urine Glucose (UA) Negative (Negative) Urine Ketones Negative (Negative) Urine Blood Negative (Negative) Urine Nitrite Negative (Negative) Urine Bilirubin Negative (Negative) Urine Urobilinogen <2.0 (<2.0) mg/dL Ur Leukocyte Esterase Negative (Negative) 02/06/21 Range/Units 00:06 WBC (3.8-10.6) k/uL RBC (3.80-5.40) m/uL Hgb (11.4-16.0) gm/dL Hct (34.0-46.0) % MCV (80.0-100.0) fL MCH (25.0-35.0) pg MCHC (31.0-37.0) g/dL RDW (11.5-15.5) % Plt Count (150-450) k/uL MPV Neutrophils % % Lymphocytes % % Monocytes % % Eosinophils % % Basophils % % Neutrophils # (1.3-7.7) k/uL Lymphocytes # (1.0-4.8) k/uL Monocytes # (0-1.0) k/uL Eosinophils # (0-0.7) k/uL Basophils # (0-0.2) k/uL Sodium (137-145) mmol/L Potassium (3.5-5.1) mmol/L Chloride (98-107) mmol/L Carbon Dioxide (22-30) mmol/L Anion Gap mmol/L BUN (7-17) mg/dL Creatinine (0.52-1.04) mg/dL Est GFR (CKD-EPI)AfAm (>60 ml/min/1.73 sqM) Est GFR (CKD-EPI)NonAf (>60 ml/min/1.73 sqM) Glucose (74-99) mg/dL Calcium (8.4-10.2) mg/dL Total Bilirubin (0.2-1.3) mg/dL AST (14-36) U/L ALT (4-34) U/L Alkaline Phosphatase (38-126) U/L Troponin I <0.012 (0.000-0.034) ng/mL Total Protein (6.3-8.2) g/dL Albumin (3.5-5.0) g/dL Amylase (30-110) U/L Lipase (23-300) U/L Urine Color Urine Appearance (Clear) Urine pH (5.0-8.0) Ur Specific [place] (1.001-1.035) Urine Protein (Negative) Urine Glucose (UA) (Negative) Urine Ketones (Negative) Urine Blood (Negative) Urine Nitrite (Negative) Urine Bilirubin (Negative) Urine Urobilinogen (<2.0) mg/dL Ur Leukocyte Esterase (Negative) - EKG Data -: EKG Interpreted by Nm EKG shows normal: sinus rhythm (Rate 85 bpm), axis (Normal), intervals (Normal), QRS complexes (Possible old lateral infarct.), ST-T waves (Normal) Rate: normal Disposition Clinical Impression: Reflux esophagitis Disposition: HOME SELF-CARE Condition: Good Instructions (If sedation given, give patient instructions): Gastroesophageal Reflux Disease (ED) Prescriptions: Lidocaine Viscous [Xylocaine Viscous 2%] 5 ml PO Q3HR PRN #100 ml PRN Reason: Sore Throat Is patient prescribed a controlled substance at d/c from ED?: No Referrals: Ponce Kothari MD [Primary Care Provider] - 1-2 days Brenda Johnson MD [STAFF PHYSICIAN] - 1-2 days Iris Burch MD [STAFF PHYSICIAN] - 1-2 days
[2021-02-06 00:33] LABS: ALT 51 U/L (4-34); AST 49 U/L (14-36); African American GFR (CKD) >90 (>60 ml/min/1.73 sqM); Albumin 3.6 g/dL (3.5-5.0); Alkaline Phosphatase 135 U/L (38-126); Amylase 73 U/L (30-110); Anion Gap 6 mmol/L; Blood Urea Nitrogen 25 mg/dL (7-17); Calcium 9.2 mg/dL (8.4-10.2); Carbon Dioxide 31 mmol/L (22-30); Chloride 101 mmol/L (98-107); Glucose 171 mg/dL (74-99); Lipase 94 U/L (23-300); Non-African American GFR(CKD) >90 (>60 ml/min/1.73 sqM); Potassium 4.2 mmol/L (3.5-5.1); Sodium 138 mmol/L (137-145); Total Bilirubin 0.1 mg/dL (0.2-1.3); Total Protein 6.3 g/dL (6.3-8.2)
[2021-02-06 00:34] LABS: Basophils # (A) 0.1 k/uL (0-0.2); Basophils % (A) 0 %; Eosinophils # (A) 0.1 k/uL (0-0.7); Eosinophils % (A) 1 %; HCT 36.6 % (34.0-46.0); HGB 11.9 gm/dL (11.4-16.0); Lymphocytes % (A) 16 %; MCH 25.9 pg (25.0-35.0); MCHC 32.6 g/dL (31.0-37.0); MCV 79.5 fL (80.0-100.0); Mean Platelet Volume 8.5; Monocytes # (A) 0.9 k/uL (0-1.0); Monocytes % (A) 7 %; Neutrophils # (A) 9.3 k/uL (1.3-7.7); Neutrophils % (A) 74 %; Platelet Count 161 k/uL (150-450); RBC 4.61 m/uL (3.80-5.40); RDW 15.3 % (11.5-15.5); WBC 12.6 k/uL (3.8-10.6)
[2021-02-06 01:22] LABS: Appearance,Urine Clear (Clear); Bilirubin,Urine Negative (Negative); Blood,Urine Negative (Negative); Color,Urine Light Yellow; Glucose,Urine (UA) Negative (Negative); Ketones,Urine Negative (Negative); Leukocyte Esterase,Urine Negative (Negative); Nitrite,Urine Negative (Negative); PH, Urine 6.5 (5.0-8.0); Protein,Urine Negative (Negative); Specific Gravity,Urine 1.009 (1.001-1.035); Urobilinogen,Urine <2.0 mg/dL (<2.0)
== END 2021-02-06 01:59 | disposition home or self-care (01) ==
LOC: EC 23:09
DX: K21.00 Gastro-esophageal reflux disease with esophagitis, without bleeding (principal); J44.9 Chronic obstructive pulmonary disease, unspecified; E11.9 Type 2 diabetes mellitus without complications; M79.7 Fibromyalgia; E78.5 Hyperlipidemia, unspecified; I10 Essential (primary) hypertension; F32.9 Major depressive disorder, single episode, unspecified; Z79.52 Long term (current) use of systemic steroids; Z79.4 Long term (current) use of insulin
CPT/HCPCS: 36415; 80053; 81003; 82150; 83690; 84484; 85025; 93005; 99284

== ENCOUNTER 2021-02-06 14:42 | Emergency (ER) | payer MEDICARE ==
--- NOTE | 2021-02-06 15:22 | ED ---
SOB HPI - General Chief Complaint: Shortness of Breath Stated Complaint: SOB, Asthma Time Seen by Provider: 02/06/21 14:58 Source: patient, family ( spouse), RN notes reviewed, old records reviewed Mode of arrival: ambulatory Limitations: no limitations - History of Present Illness Initial Comments: 65-year-old white female presents to the emergency room with her complaining of cough. Patient's states that they were here in the emergency room last night for epigastric pain and GERD and was given a GI cocktail and symptoms resolved. Patient did at that time had lab work and EKG which were unremarkable. states that they did not get a chest x-ray yesterday patient does have a cough with a history of recurrent pneumonia. He is concerned that she may have pneumonia because her cough has increased. Patient states that she does not have any sputum. She does have a temperature in the ER of 100.4 however states that she normally has low-grade fevers at baseline. Patient also has a history of Covid illness in June 2020 with post Covid confusion that they've noticed since July. states that they see Dr. 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 Patient has never been a smoker. Patient has a history of diabetes, fibromyalgia, GERD, hypertension, adrenal insufficiency. Patient states no chest pain, no back pain, no abdominal pain, no nausea vomiting or diarrhea. MD Complaint: cough Severity scale (1-10): 0 Known History Of: COPD, asthma, recurrent pneumonia Associated Symptoms: denies other symptoms - Related Data Home Medications Medication Instructions Recorded Confirmed Escitalopram [Lexapro] 30 mg PO QAM 01/01/14 01/28/21 Spironolactone [Aldactone] 25 mg PO TID 01/01/14 01/28/21 Potassium Chloride ER [K-Dur 20] 60 meq PO BID 11/06/14 01/28/21 Amitriptyline HCl [Elavil] 30 mg PO HS 12/07/14 01/28/21 traZODone HCL 75 mg PO HS 09/10/16 01/28/21 Insulin Aspart (For Pump) [NovoLOG 0.01 unit SQ-PUMP CONTINUOUS 07/24/17 01/28/21 (For Pump)] buPROPion XL [Wellbutrin XL] 450 mg PO DAILY 07/24/17 01/28/21 Fluticasone/Salmeterol [Advair Hfa 2 puff INHALATION RT-BID 04/09/19 01/28/21 230-21 Mcg Inhaler] Pregabalin [Lyrica] 100 mg PO TID 04/09/19 01/28/21 Montelukast [Singulair] 10 mg PO HS 08/01/19 01/28/21 Nystatin 500,000 unit PO QID PRN 08/01/19 01/28/21 Budesonide [Pulmicort] 0.5 mg INHALATION RT-BID 03/31/20 01/28/21 ALPRAZolam [Xanax] 0.25 mg PO HS PRN 07/21/20 01/28/21 ALPRAZolam [Xanax] 0.5 mg PO TID 07/21/20 01/28/21 Cyclobenzaprine [Flexeril] 10 mg PO TID PRN 07/21/20 01/28/21 Furosemide [Lasix] 20 mg PO BID 07/21/20 01/28/21 Magnesium Oxide [Magox 400] 400 mg PO DAILY@1200 07/21/20 01/28/21 Pantoprazole [Protonix] 40 mg PO DAILY 07/21/20 01/28/21 Pravastatin Sodium [Pravachol] 10 mg PO HS 07/21/20 01/28/21 Promethazine 6.25MG/5Ml [Phenergan 6.25 mg PO DIRECTED PRN 07/21/20 01/28/21 Syrup] Ubidecarenone [Co Q-10] 200 mg PO DAILY@1200 07/21/20 01/28/21 Vitamin B-Complex W/Vit C 1 tab PO DAILY 07/21/20 01/28/21 busPIRone HCl [Buspar] 20 mg PO BID 07/21/20 01/28/21 Ascorbic Acid [Vitamin C] 2,000 mg PO DAILY 09/15/20 01/28/21 predniSONE 20 mg PO DIRECTED 12/31/20 01/28/21 Previous Rx's Medication Instructions Recorded Hydrocodone/Acetaminophen [[place] 1 tab PO Q6HR PRN 3 Days #10 tab 05/07/20 5-325] Acetaminophen Tab [Tylenol] 650 mg PO Q6HR PRN tab 07/27/20 Albuterol Inhaler [Ventolin Hfa 2 puff INHALATION RT-QID PRN #1 07/27/20 Inhaler] puff Cholecalciferol [Vitamin D3 (25 2,000 unit PO DAILY #30 tab 07/27/20 Mcg = 1000 Iu)] Famotidine [Pepcid] 20 mg PO DAILY #30 tab 07/27/20 Fluticasone Nasal [place] [Flonase 1 spray EA NOSTRIL DAILY spr 07/27/20 Nasal [place]] Ipratropium-Albuterol Nebulize 3 ml INHALATION RT-TID PRN #1 neb 07/27/20 [Duoneb 0.5 mg-3 mg/3 ml Soln] Zinc Sulfate [Orazinc] 220 mg PO DAILY #30 cap 07/27/20 guaiFENesin [Mucinex] 600 mg PO BID PRN tablet.er 07/27/20 Azithromycin [Zithromax Z-pack (6 250 mg PO DIRECTED #6 tab 01/13/21 tabs)] Levofloxacin [Levaquin] 750 mg PO DAILY 6 Days #6 tab 01/22/21 predniSONE [Deltasone] 40 mg PO DAILY #14 tab 01/22/21 Doxycycline Monohydrate [Monodox] 100 mg PO Q12HR 5 Days #10 cap 02/06/21 Lidocaine Viscous [Xylocaine 5 ml PO Q3HR PRN #100 ml 02/06/21 Viscous 2%] Allergies Allergy/AdvReac Type Severity Reaction Status Date / Time crisaborole [From Eucrisa] Allergy Rash/Hives Verified 02/06/21 14:50 indomethacin sodium Allergy severe Verified 02/06/21 14:50 [From Indocin] Confusion cefuroxime axetil AdvReac Severe Abdominal Verified 02/06/21 14:50 [From Ceftin] Pain ciprofloxacin HCl AdvReac Severe Abdominal Verified 02/06/21 14:50 [From Cipro] Pain erythromycin base AdvReac Unknown Abdominal Verified 02/06/21 14:50 [Erythromycin Base] Pain sulfamethoxazole AdvReac Unknown Abdominal Verified 02/06/21 14:50 [From Bactrim] Pain trimethoprim [From Bactrim] AdvReac Unknown Abdominal Verified 02/06/21 14:50 Pain NSAIDS (Non-Steroidal AdvReac Dyspnea Verified 02/06/21 14:50 Anti-Inflamma Penicillins AdvReac Nausea & Verified 02/06/21 14:50 Vomiting Sulfa (Sulfonamide AdvReac Abdominal Verified 02/06/21 14:50 Antibiotics) Pain Review of Systems ROS Statement: Those systems with pertinent positive or pertinent negative responses have been documented in the HPI. ROS Other: All systems not noted in ROS Statement are negative. Past Medical History Past Medical History: Asthma, COPD, Diabetes Mellitus, Eye Disorder, Fibromyalgia, GERD/Reflux, Hyperlipidemia, Hypertension, Musculoskeletal Disorder, Pneumonia, Respiratory Disorder, Skin Disorder Additional Past Medical History / Comment(s): Bronchial asthma, tr acheobronchomalacia, common variable immunoglobulin deficiency. Chronic back problems. chronic steroid use, suspected component of adrenal insufficiency due to chronic steroid use. Hiatal hernia. 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 Pneumonia / In ICU in [place] after Back surgery - March 2019. Mycobacterium gordonae soft tissue infection. cataracts, glaucoma, fibromyalgia, chronic pain, compression fracture of the spine. covid History of Any Multi-Drug Resistant Organisms: MRSA Date of last positivie culture/infection: 2010 MDRO Source:: right hand Past Surgical History: Appendectomy, Back Surgery, Breast Surgery, Cholecystectomy, Tubal Ligation Additional Past Surgical History / Comment(s): MULT BRONCHS, WASHINGS, LAST 04/17/14. EXC [facility] CATARACT. BLEPHAROPLASTY/ R&L BREAST BIOPSIES; PORT A CATH IN LEFT CHEST-CHANGED TO RT CHEST,EXC MYCOBACTERIUM AREAS RT ARM 2011; UPPER TEETH EXTRACTED. RT SALPINGECTOMY/FALLOPIAN TUBE REMOVED, I&D BOIL.Jul [facility] EYE AND MUSCLE SURGERY; - mouth (bone) surgery. Pain pump insertion to le ft buttocks - October 2016. Colonoscopy 2014. Hiatal hernia surgeries 2014&2016. Back surgery (Decompresssion) - February 2019 Past Anesthesia/Blood Transfusion Reactions: Motion Sickness, Postoperative Nausea & Vomiting (PONV) Past Psychological History: Anxiety, Depression Smoking Status: Never smoker Past Alcohol Use History: None Reported Past Drug Use History: None Reported - Past Family History Mother Family Medical History: Cancer Additional Family Medical History / Comment(s): BREAST CANCER. Father Additional Family Medical History / Comment(s): r/t suicide General Exam Limitations: no limitations General appearance: alert, in no apparent distress Head exam: Present: atraumatic, normocephalic, normal inspection Eye exam: Present: normal appearance, PERRL, EOMI. Absent: scleral icterus, conjunctival injection, nystagmus, periorbital swelling Pupils: Present: normal accommodation (Sluggish) ENT exam: Present: normal exam, normal oropharynx (Minor evidence of thrush soft palate), mucous membranes moist Neck exam: Present: normal inspection. Absent: tenderness, meningismus, lymphadenopathy Respiratory exam: Present: wheezes, rhonchi (Expiratory). Absent: chest wall tenderness, accessory muscle use Cardiovascular Exam: Present: regular rate, normal rhythm, normal heart sounds. Absent: systolic murmur, diastolic murmur, rubs, gallop, clicks GI/Abdominal exam: Present: soft, normal bowel sounds, hernia (Midline). Absent: distended, tenderness, guarding, rebound, rigid Rectal exam: Present: deferred Extremities exam: Present: full ROM, normal capillary refill, pedal edema (Trace lower extremity). Absent: tenderness, joint swelling, calf tenderness Back exam: Present: normal inspection. Absent: tenderness, CVA tenderness (R), CVA tenderness (L), muscle spasm, paraspinal tenderness, vertebral tenderness Neurological exam: Present: alert, oriented X3, CN II-XII intact Psychiatric exam: Present: normal affect, normal mood Skin exam: Present: warm, dry, intact, normal color, other (Bruising to the right distal forearm). Absent: rash, cyanosis Course Vital Signs 02/06/21 14:48 Temperature 100.4 F H Pulse Rate 87 Respiratory 18 Rate Blood Pressure 113/51 O2 Sat by Pulse 92 L Oximetry Medical Decision Making - Medical Decision Making Patient was seen yesterday for epigastric pain which resolved with a GI cocktail. At that time EKG was done, labs were done and within normal limits. Patient was discharged home however was requesting and chest x-ray to rule out pneumonia which was performed today shows a right lower lobe pneumonia with patchy atelectasis. Patient is denying any chest pain. Patient will be treated with doxycycline and directed to follow up with Dr. Kothari this week. states he will call him tomorrow morning to make the appointment is agreeable to this plan of care. Case discussed with Dr Mathew Disposition Clinical Impression: Pneumonia Disposition: HOME SELF-CARE Condition: Fair Additional Instructions: Take medication as prescribed and return if worsening shortness of breath or chest pain. Follow-up with Dr. Kothari tomorrow Prescriptions: Doxycycline Monohydrate [Monodox] 100 mg PO Q12HR 5 Days #10 cap Is patient prescribed a controlled substance at d/c from ED?: No Referrals: Ponce Kothari MD [Primary Care Provider] - 1-2 days Time of Disposition: 17:05
--- NOTE | 2021-02-06 16:30 | XR ---
EXAMINATION TYPE: XR chest 2V DATE OF EXAM: 02/06/2021 COMPARISON: 01/22/2021 HISTORY: Cough TECHNIQUE: 2 views FINDINGS: There is some linear density at both lung bases. Heart is enlarged. There is right central venous catheter with tip in the right atrium. Bony thorax is intact. IMPRESSION: There is some patchy atelectasis at the lung bases which is increased compared to last ex am. No heart failure. There is probably also some right lower lobe pneumonia.
[2021-02-06 17:25] VITALS: BP 133/54; PULSE 99; RESP 20; TEMP 99.5
== END 2021-02-06 17:25 | disposition home or self-care (01) ==
LOC: EC 14:42
DX: J18.1 Lobar pneumonia, unspecified organism (principal); J98.11 Atelectasis; E11.36 Type 2 diabetes mellitus with diabetic cataract; E78.5 Hyperlipidemia, unspecified; I10 Essential (primary) hypertension; J44.9 Chronic obstructive pulmonary disease, unspecified; K21.9 Gastro-esophageal reflux disease without esophagitis; M79.7 Fibromyalgia; H40.9 Unspecified glaucoma; E11.39 Type 2 diabetes mellitus with other diabetic ophthalmic complication; Z79.4 Long term (current) use of insulin; Z79.51 Long term (current) use of inhaled steroids; Z79.52 Long term (current) use of systemic steroids; Z79.899 Other long term (current) drug therapy; Z88.0 Allergy status to penicillin; Z88.1 Allergy status to other antibiotic agents; Z88.2 Allergy status to sulfonamides; Z88.6 Allergy status to analgesic agent; Z90.79 Acquired absence of other genital organ(s); Z88.8 Allergy status to other drugs, medicaments and biological substances; Z86.16 Personal history of COVID-19
CPT/HCPCS: 71046; 99284

== ENCOUNTER 2021-03-03 05:54 | Inpatient (IN) | payer MEDICARE ==
[2021-03-03] MEDS ORDERED: ACETAMINOPHEN TAB 500 MG TAB PO STA (06:06)
[2021-03-03] MEDS ORDERED: SODIUM CHLORIDE 0.9% 1,000 ML IV STA ×3 (06:06→08:10)
[2021-03-03] MEDS ORDERED: cefTRIAXone IN SWFI 1,000 MG/10 ML SYRINGE IVP STA ×2 (06:20→07:51)
--- NOTE | 2021-03-03 06:25 | ED ---
Weakness HPI - General Chief complaint: Weakness Stated complaint: Weakness, Fever Time Seen by Provider: 03/03/21 06:03 Source: patient, EMS Mode of arrival: EMS Limitations: no limitations - History of Present Illness Initial comments: 65-year-old female with history of diabetes, severe asthma, recurrent UTIs presenting to emergency Department with a chief complaint of fever and weakness. Patient brought to the ED via EMS. states the patient developed a fever yesterday and he gave her Tylenol which was able to break the fever for a short period of time. States the fever was as high as 103. She reports the onset periumbilical pain is started prior to ED arrival. Patient reports pain in her right arm which the states is secondary to her spinal stenosis of the cervical spine. Patient is oxygen at home but is not a smoker. She denies any chest pain or shortness of breath. Denies dysuria, increased urgency or frequency. She denies hematuria, hematochezia or melena. Denies any vaginal symptoms. Denies headaches, visual changes one-sided weakness paresthesias. Patient had cold the last year and she has been vaccinated since. - Related Data Home Medications Medication Instructions Recorded Confirmed Escitalopram [Lexapro] 30 mg PO QAM 01/01/14 02/25/21 Spironolactone [Aldactone] 25 mg PO TID 01/01/14 02/25/21 Potassium Chloride ER [K-Dur 20] 60 meq PO BID 11/06/14 02/25/21 Amitriptyline HCl [Elavil] 30 mg PO HS 12/07/14 02/25/21 traZODone HCL 75 mg PO HS 09/10/16 02/25/21 Insulin Aspart (For Pump) [NovoLOG 0.01 unit SQ-PUMP CONTINUOUS 07/24/17 02/25/21 (For Pump)] buPROPion XL [Wellbutrin XL] 450 mg PO DAILY 07/24/17 02/25/21 Fluticasone/Salmeterol [Advair Hfa 2 puff INHALATION RT-BID 04/09/19 02/25/21 230-21 Mcg Inhaler] Pregabalin [Lyrica] 100 mg PO TID 04/09/19 02/25/21 Montelukast [Singulair] 10 mg PO HS 08/01/19 02/25/21 Nystatin 500,000 unit PO QID PRN 08/01/19 02/25/21 Budesonide [Pulmicort] 0.5 mg INHALATION RT-BID 03/31/20 02/25/21 ALPRAZolam [Xanax] 0.25 mg PO HS PRN 07/21/20 02/25/21 ALPRAZolam [Xanax] 0.5 mg PO TID 07/21/20 02/25/21 Cyclobenzaprine [Flexeril] 10 mg PO TID PRN 07/21/20 02/25/21 Furosemide [Lasix] 20 mg PO BID 07/21/20 02/25/21 Magnesium Oxide [Magox 400] 400 mg PO DAILY@1200 07/21/20 02/25/21 Pantoprazole [Protonix] 40 mg PO DAILY 07/21/20 02/25/21 Pravastatin Sodium [Pravachol] 10 mg PO HS 07/21/20 02/25/21 Promethazine 6.25MG/5Ml [Phenergan 6.25 mg PO DIRECTED PRN 07/21/20 02/25/21 Syrup] Ubidecarenone [Co Q-10] 200 mg PO DAILY@1200 07/21/20 02/25/21 Vitamin B-Complex W/Vit C 1 tab PO DAILY 07/21/20 02/25/21 busPIRone HCl [Buspar] 20 mg PO BID 07/21/20 02/25/21 Ascorbic Acid [Vitamin C] 2,000 mg PO DAILY 09/15/20 02/25/21 predniSONE 20 mg PO DIRECTED 12/31/20 02/25/21 Previous Rx's Medication Instructions Recorded Hydrocodone/Acetaminophen [Nolan 1 tab PO Q6HR PRN 3 Days #10 tab 05/07/20 5-325] Acetaminophen Tab [Tylenol] 650 mg PO Q6HR PRN tab 07/27/20 Albuterol Inhaler [Ventolin Hfa 2 puff INHALATION RT-QID PRN #1 07/27/20 Inhaler] puff Cholecalciferol [Vitamin D3 (25 2,000 unit PO DAILY #30 tab 07/27/20 Mcg = 1000 Iu)] Famotidine [Pepcid] 20 mg PO DAILY #30 tab 07/27/20 Fluticasone Nasal [place] [Flonase 1 spray EA NOSTRIL DAILY spr 07/27/20 Nasal [place]] Ipratropium-Albuterol Nebulize 3 ml INHALATION RT-TID PRN #1 neb 07/27/20 [Duoneb 0.5 mg-3 mg/3 ml Soln] Zinc Sulfate [Orazinc] 220 mg PO DAILY #30 cap 07/27/20 guaiFENesin [Mucinex] 600 mg PO BID PRN tablet.er 07/27/20 Azithromycin [Zithromax Z-pack (6 250 mg PO DIRECTED #6 tab 01/13/21 tabs)] Levofloxacin [Levaquin] 750 mg PO DAILY 6 Days #6 tab 01/22/21 predniSONE [Deltasone] 40 mg PO DAILY #14 tab 01/22/21 Doxycycline Monohydrate [Monodox] 100 mg PO Q12HR 5 Days #10 cap 02/06/21 Lidocaine Viscous [Xylocaine 5 ml PO Q3HR PRN #100 ml 02/06/21 Viscous 2%] Allergies Allergy/AdvReac Type Severity Reaction Status Date / Time crisaborole [From Eucrisa] Allergy Rash/Hives Verified 02/25/21 08:13 indomethacin sodium Allergy severe Verified 02/25/21 08:13 [From Indocin] Confusion cefuroxime axetil AdvReac Severe Abdominal Verified 02/25/21 08:13 [From Ceftin] Pain ciprofloxacin HCl AdvReac Severe Abdominal Verified 02/25/21 08:13 [From Cipro] Pain erythromycin base AdvReac Unknown Abdominal Verified 02/25/21 08:13 [Erythromycin Base] Pain sulfamethoxazole AdvReac Unknown Abdominal Verified 02/25/21 08:13 [From Bactrim] Pain trimethoprim [From Bactrim] AdvReac Unknown Abdominal Verified 02/25/21 08:13 Pain NSAIDS (Non-Steroidal AdvReac Dyspnea Verified 02/25/21 08:13 Anti-Inflamma Penicillins AdvReac Nausea & Verified 02/25/21 08:13 Vomiting Sulfa (Sulfonamide AdvReac Abdominal Verified 02/25/21 08:13 Antibiotics) Pain Review of Systems ROS Statement: Those systems with pertinent positive or pertinent negative responses have been documented in the HPI. ROS Other: All systems not noted in ROS Statement are negative. Past Medical History Past Medical History: Asthma, COPD, Diabetes Mellitus, Eye Disorder, Fibromyalgia, GERD/Reflux, Hyperlipidemia, Hypertension, Musculoskeletal Disorder, Pneumonia, Respiratory Disorder, Skin Disorder Additional Past Medical History / Comment(s): Bronchial asthma, tracheobronchomalacia, common variable immunoglobulin deficiency. Chronic back problems. chronic steroid use, suspected component of adrenal insufficiency due to chronic steroid use. Hiatal hernia. 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 Pneumonia / In ICU in [place] after Back surgery - March 2019. Mycobacterium gordonae soft tissue infection. cataracts, glaucoma, fibromyalgia, chronic pain, compression fracture of the spine. covid History of Any Multi-Drug Resistant Organisms: MRSA Date of last positivie culture/infection: 2010 MDRO Source:: right hand Past Surgical History: Appendectomy, Back Surgery, Breast Surgery, Cholecystectomy, Tubal Ligation Additional Past Surgical History / Comment(s): MULT BRONCHS, WASHINGS, LAST 04/17/14. EXC [facility] CATARACT. BLEPHAROPLASTY/ R&L BREAST BIOPSIES; PORT A CATH IN LEFT CHEST-CHANGED TO RT CHEST,EXC MYCOBACTERIUM AREAS RT ARM 2011; UPPER TEETH EXTRACTED. RT SALPINGECTOMY/FALLOPIAN TUBE REMOVED, I&D BOIL.Jul [facility] EYE AND MUSCLE SURGERY; - mouth (bone) surgery. Pain pump insertion to left buttocks - October 2016. Colonoscopy 2014. Hiatal hernia surgeries 2014&2015. Back surgery (Decompresssion) - February 2019 Past Anesthesia/Blood Transfusion Reactions: Motion Sickness, Postoperative Nausea & Vomiting (PONV) Past Psychological History: Anxiety, Depression Smoking Status: Never smoker Past Alcohol Use History: None Reported Past Drug Use History: None Reported - Past Family History Mother Family Medical History: Cancer Additional Family Medical History / Comment(s): BREAST CANCER. Father Additional Family Medical History / Comment(s): r/t suicide General Exam Limitations: no limitations General appearance: alert, in no apparent distress Head exam: Present: atraumatic, normocephalic, normal inspection Eye exam: Present: normal appearance, PERRL, EOMI Pupils: Present: normal accommodation ENT exam: Present: normal exam, mucous membranes dry, mucous membranes moist, TM's normal bilaterally, normal external ear exam Neck exam: Present: normal inspection, full ROM. Absent: tenderness, lymphadenopathy Respiratory exam: Present: wheezes (Diffuse wheezing bilaterally). Absent: normal lung sounds bilaterally, respiratory distress Cardiovascular Exam: Present: regular rate, normal rhythm, normal heart sounds. Absent: systolic murmur, diastolic murmur GI/Abdominal exam: Present: soft, tenderness (Mild periumbilical tenderness). Absent: distended, guarding, rebound, rigid Extremities exam: Present: normal inspection, full ROM, normal capillary refill, other (Palpable DP and PT bilaterally). Absent: tenderness, pedal edema, joint swelling, calf tenderness Back exam: Present: normal inspection, full ROM. Absent: tenderness Neurological exam: Present: alert, oriented X3 Psychiatric exam: Present: normal affect, normal mood Skin exam: Present: warm, dry, intact, normal color Course Vital Signs 03/03/21 03/03/21 03/03/21 05:55 06:38 07:05 Temperature 101.3 F H 98.8 F Pulse Rate 111 H 102 H 101 H Respiratory 16 16 18 Rate Blood Pressure 72/41 84/39 90/55 O2 Sat by Pulse 90 L 94 L 97 Oximetry 03/03/21 03/03/21 03/03/21 07:32 07:42 07:55 Temperature 98.2 F Pulse Rate 99 98 99 Respiratory 16 Rate Blood Pressure 97/45 O2 Sat by Pulse 100 Oximetry EKG Findings - EKG Comments: EKG Findings:: Sinus tachycardia Q-wave in lead 3 and aVF. Similar EKG to. Ventricular rate 111, NV 142, QRS 80, QTC 416. Medical Decision Making - Lab Data Result diagrams: 03/03/21 06:25 03/03/21 06:25 Lab Results 03/03/21 03/03/21 03/03/21 Range/Units 06:25 06:25 06:25 WBC 11.7 H (3.8-10.6) k/uL RBC 4.43 (3.80-5.40) m/uL Hgb 11.1 L (11.4-16.0) gm/dL Hct 35.0 (34.0-46.0) % MCV 79.2 L (80.0-100.0) fL MCH 25.1 (25.0-35.0) pg MCHC 31.7 (31.0-37.0) g/dL RDW 16.1 H (11.5-15.5) % Plt Count 123 L (150-450) k/uL MPV 8.7 Neutrophils % 93 % Lymphocytes % 5 % Monocytes % 1 % Eosinophils % 0 % Basophils % 0 % Neutrophils # 10.9 H (1.3-7.7) k/uL Lymphocytes # 0.6 L (1.0-4.8) k/uL Monocytes # 0.1 (0-1.0) k/uL Eosinophils # 0.1 (0-0.7) k/uL Basophils # 0.0 (0-0.2) k/uL Hypochromasia Moderate Anisocytosis Slight PT 10.2 (9.0-12.0) sec INR 0.9 (<1.2) APTT 18.0 L (22.0-30.0) sec Sodium 140 (137-145) mmol/L Potassium 3.7 (3.5-5.1) mmol/L Chloride 106 (98-107) mmol/L Carbon Dioxide 27 (22-30) mmol/L Anion Gap 7 mmol/L BUN 32 H (7-17) mg/dL Creatinine 1.10 H (0.52-1.04) mg/dL Est GFR (CKD-EPI)AfAm 60 (>60 ml/min/1.73 sqM) Est GFR (CKD-EPI)NonAf 52 (>60 ml/min/1.73 sqM) Glucose 172 H (74-99) mg/dL Lactic Ac Sepsis Rflx Plasma Lactic Acid Ge[place] (0.7-2.0) mmol/L Calcium 8.5 (8.4-10.2) mg/dL Magnesium 1.9 (1.6-2.3) mg/dL Total Bilirubin 0.3 (0.2-1.3) mg/dL AST 65 H (14-36) U/L ALT 48 H (4-34) U/L Alkaline Phosphatase 147 H (38-126) U/L Troponin I (0.000-0.034) ng/mL Total Protein 5.5 L (6.3-8.2) g/dL Albumin 3.0 L (3.5-5.0) g/dL Urine Color Urine Appearance (Clear) Urine pH (5.0-8.0) Ur Specific [place] (1.001-1.035) Urine Protein (Negative) Urine Glucose (UA) (Negative) Urine Ketones (Negative) Urine Blood (Negative) Urine Nitrite (Negative) Urine Bilirubin (Negative) Urine Urobilinogen (<2.0) mg/dL Ur Leukocyte Esterase (Negative) Urine RBC (0-5) /hpf Urine WBC (0-5) /hpf Urine WBC Clumps (None) /hpf Urine Bacteria (None) /hpf Urine Mucus (None) /hpf Coronavirus (PCR) (Not Detectd) 03/03/21 03/03/21 03/03/21 Range/Units 06:25 06:25 06:42 WBC (3.8-10.6) k/uL RBC (3.80-5.40) m/uL Hgb (11.4-16.0) gm/dL Hct (34.0-46.0) % MCV (80.0-100.0) fL MCH (25.0-35.0) pg MCHC (31.0-37.0) g/dL RDW (11.5-15.5) % Plt Count (150-450) k/uL MPV Neutrophils % % Lymphocytes % % Monocytes % % Eosinophils % % Basophils % % Neutrophils # (1.3-7.7) k/uL Lymphocytes # (1.0-4.8) k/uL Monocytes # (0-1.0) k/uL Eosinophils # (0-0.7) k/uL Basophils # (0-0.2) k/uL Hypochromasia Anisocytosis PT (9.0-12.0) sec INR (<1.2) APTT (22.0-30.0) sec Sodium (137-145) mmol/L Potassium (3.5-5.1) mmol/L Chloride (98-107) mmol/L Carbon Dioxide (22-30) mmol/L Anion Gap mmol/L BUN (7-17) mg/dL Creatinine (0.52-1.04) mg/dL Est GFR (CKD-EPI)AfAm (>60 ml/min/1.73 sqM) Est GFR (CKD-EPI)NonAf (>60 ml/min/1.73 sqM) Glucose (74-99) mg/dL Lactic Ac Sepsis Rflx Plasma Lactic Acid Ge[place] 3.1 H* (0.7-2.0) mmol/L Calcium (8.4-10.2) mg/dL Magnesium (1.6-2.3) mg/dL Total Bilirubin (0.2-1.3) mg/dL AST (14-36) U/L ALT (4-34) U/L Alkaline Phosphatase (38-126) U/L Troponin I 0.020 (0.000-0.034) ng/mL Total Protein (6.3-8.2) g/dL Albumin (3.5-5.0) g/dL Urine Color Urine Appearance (Clear) Urine pH (5.0-8.0) Ur Specific [place] (1.001-1.035) Urine Protein (Negative) Urine Glucose (UA) (Negative) Urine Ketones (Negative) Urine Blood (Negative) Urine Nitrite (Negative) Urine Bilirubin (Negative) Urine Urobilinogen (<2.0) mg/dL Ur Leukocyte Esterase (Negative) Urine RBC (0-5) /hpf Urine WBC (0-5) /hpf Urine WBC Clumps (None) /hpf Urine Bacteria (None) /hpf Urine Mucus (None) /hpf Coronavirus (PCR) Not Detected (Not Detectd) 03/03/21 03/03/21 Range/Units 06:46 07:27 WBC (3.8-10.6) k/uL RBC (3.80-5.40) m/uL Hgb (11.4-16.0) gm/dL Hct (34.0-46.0) % MCV (80.0-100.0) fL MCH (25.0-35.0) pg MCHC (31.0-37.0) g/dL RDW (11.5-15.5) % Plt Count (150-450) k/uL MPV Neutrophils % % Lymphocytes % % Monocytes % % Eosinophils % % Basophils % % Neutrophils # (1.3-7.7) k/uL Lymphocytes # (1.0-4.8) k/uL Monocytes # (0-1.0) k/uL Eosinophils # (0-0.7) k/uL Basophils # (0-0.2) k/uL Hypochromasia Anisocytosis PT (9.0-12.0) sec INR (<1.2) APTT (22.0-30.0) sec Sodium (137-145) mmol/L Potassium (3.5-5.1) mmol/L Chloride (98-107) mmol/L Carbon Dioxide (22-30) mmol/L Anion Gap mmol/L BUN (7-17) mg/dL Creatinine (0.52-1.04) mg/dL Est GFR (CKD-EPI)AfAm (>60 ml/min/1.73 sqM) Est GFR (CKD-EPI)NonAf (>60 ml/min/1.73 sqM) Glucose (74-99) mg/dL Lactic Ac Sepsis Rflx Y Plasma Lactic Acid [place] (0.7-2.0) mmol/L Calcium (8.4-10.2) mg/dL Magnesium (1.6-2.3) mg/dL Total Bilirubin (0.2-1.3) mg/dL AST (14-36) U/L ALT (4-34) U/L Alkaline Phosphatase (38-126) U/L Troponin I (0.000-0.034) ng/mL Total Protein (6.3-8.2) g/dL Albumin (3.5-5.0) g/dL Urine Color Yellow Urine Appearance Cloudy H (Clear) Urine pH 7.0 (5.0-8.0) Ur Specific [place] 1.015 (1.001-1.035) Urine Protein 1+ H (Negative) Urine Glucose (UA) Negative (Negative) Urine Ketones Negative (Negative) Urine Blood Moderate H (Negative) Urine Nitrite Negative (Negative) Urine Bilirubin Negative (Negative) Urine Urobilinogen <2.0 (<2.0) mg/dL Ur Leukocyte Esterase Large H (Negative) Urine RBC 73 H (0-5) /hpf Urine WBC 132 H (0-5) /hpf Urine WBC Clumps Few H (None) /hpf Urine Bacteria Rare H (None) /hpf Urine Mucus Rare H (None) /hpf Coronavirus (PCR) (Not Detectd) Disposition Clinical Impression: Sepsis due to urinary tract infection Disposition: ADMITTED IP TO THIS HOSP Condition: Fair Referrals: Ponce Kothari MD [Primary Care Provider] - 1-2 days Time of Disposition: 08:40
[2021-03-03] MEDS ORDERED: IPRATROPIUM-ALBUTEROL 3 ML NEB INHALATION STA (06:28)
[2021-03-03 06:40] LABS: Anisocytosis Slight; Basophils % (A) 0 %; Eosinophils # (A) 0.1 k/uL (0-0.7); Eosinophils % (A) 0 %; HGB 11.1 gm/dL (11.4-16.0); Hypochromasia Moderate; Lymphocytes # (A) 0.6 k/uL (1.0-4.8); Lymphocytes % (A) 5 %; MCH 25.1 pg (25.0-35.0); MCHC 31.7 g/dL (31.0-37.0); MCV 79.2 fL (80.0-100.0); Mean Platelet Volume 8.7; Monocytes # (A) 0.1 k/uL (0-1.0); Monocytes % (A) 1 %; Neutrophils # (A) 10.9 k/uL (1.3-7.7); Neutrophils % (A) 93 %; Platelet Count 123 k/uL (150-450); RBC 4.43 m/uL (3.80-5.40); RDW 16.1 % (11.5-15.5); WBC 11.7 k/uL (3.8-10.6)
[2021-03-03 06:44] LABS: Calcium 8.5 mg/dL (8.4-10.2); Magnesium 1.9 mg/dL (1.6-2.3); Potassium 3.7 mmol/L (3.5-5.1); Total Bilirubin 0.3 mg/dL (0.2-1.3); Total Protein 5.5 g/dL (6.3-8.2)
[2021-03-03 06:50] LABS: INR 0.9 (<1.2); Prothrombin Time 10.2 sec (9.0-12.0)
[2021-03-03] MEDS ORDERED: methylPREDNISolone SOD SUCCI 125 MG/2 ML VIAL IV STA (06:50)
--- NOTE | 2021-03-03 06:54 | XR ---
EXAMINATION TYPE: XR chest 2V DATE OF EXAM: 03/03/2021 COMPARISON: 02/10/2021 HISTORY: COPD. Weakness. TECHNIQUE: 2 views FINDINGS: There is some atelectasis at the left lung base. There is no heart failure. There is right central venous catheter with tip in the right atrium. Thoracic aorta is atheromatous. IMPRESSION: Atelectasis left lung base is slightly worse than last exam. No heart failure seen.
[2021-03-03] MEDS: ACETAMINOPHEN TAB 325 MG TAB PO STA ×3 (07:01→07:03)
[2021-03-03 08:31] LABS: Appearance,Urine Cloudy (Clear); Bacteria,Urine Rare /hpf; Bilirubin,Urine Negative (Negative); Blood,Urine Moderate (Negative); Color,Urine Yellow; Glucose,Urine (UA) Negative (Negative); Ketones,Urine Negative (Negative); Leukocyte Esterase,Urine Large (Negative); Mucus,Urine Rare /hpf; Nitrite,Urine Negative (Negative); Protein,Urine 1+ (Negative); RBC,Urine 73 /hpf (0-5); Specific Gravity,Urine 1.015 (1.001-1.035); Urobilinogen,Urine <2.0 mg/dL (<2.0); WBC,Urine 132 /hpf (0-5)
[2021-03-03] MEDS ORDERED: PROMETHAZINE HCL 6.25 MG/5 ML CUP PO PRN (10:27)
[2021-03-03 10:45] LABS: Glucose,Whole Blood 288 mg/dL (75-99)
[2021-03-03] MEDS: buPROPion XL 150 MG TAB.ER.24H PO SCH (11:12)
[2021-03-03] MEDS: DOCUSATE 100 MG CAP PO SCH ×2 (11:13→22:51)
[2021-03-03] MEDS: CALCIUM CARBONATE 500 MG CHEWABLE PO SCH ×2 (11:13→22:53)
[2021-03-03] MEDS: AMITRIPTYLINE HCL 10 MG TAB PO SCH (11:13)
[2021-03-03] MEDS: PANTOPRAZOLE 40 MG TABLET PO SCH (11:13)
[2021-03-03] MEDS: ESCITALOPRAM 20 MG TAB PO SCH (11:14)
[2021-03-03] MEDS: busPIRone HCl 10 MG TAB PO SCH ×2 (11:14→22:51)
--- NOTE | 2021-03-03 11:57 | P.CNPUL ---
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 The patient came into the emergency department yesterday because of altered mentation, generalized weakness and fatigue, confusion and diaphoresis and sweating and fever. Temperature was as high as 11.3. Chest x-ray was done and it showed some atelectatic changes and left lung base. Noted. Indication of an underlying pneumonia. UA was abnormal and the patient was given diagnosis and acute urine checked infection and the patient was started on IV Rocephin and IV fluids was given and she will be admitted to the floor. Lactic acid level was 4.0. Noted the patient has been infected with COVID-19 in the past and the repeat COVID-19 evaluation came back negative. As stated, urinalysis was abnormal and there was increase/along with some few WBC clumps. Culture is still pending. The white cell count is at 11.7 and the platelet count is 123. She is much more awake at this point in time. She is communicating. No focal neurological deficit. She was able to recognize maintenance we had a conversation that was quite appropriate. No nausea. No vomiting. No emesis. She is adequately being hydrated with IV fluids. She is on normal saline at the rate of 130 mL an hour. Review of Systems Patient reports diminished activity and fatigue but reports no excess weight gai n, no excess weight loss, no loss of appetite, and no fatigue. She reports no ear pain, no ear discharge, no hearing loss, no sinus pressure, no swelling, no congestion, no sore throat, no hoarseness, no mouth lesions, and no nasal discharge; thrush. She reports cough, noisy breathing, and difficulty breathing but reports no wheezing, no chest tightness, no pain with respiration, and normal respiration rate. She reports no soft tissue swelling, no joint swelling, no limited motion, and no myalgia; diffuse body pain, more so in the back and the neck area. She reports no pain, no itchiness, no skin redness, no rash, no hives, no skin lesions, no swelling, and no bruising; wound in the left buttock. She reports weakness but reports no numbness, no burning, no shooting pain, no headache, no diziness, and no loss of consciousness; lower extremities numbness and neuropathy. She reports sleep disturbances but reports no depression, feeling safe in relationship, and no alcohol abuse. She reports no eye pain, no blurry vision, no eye redness, no eye itchiness, no eye swelling, and no eye discharge. She reports no chest pain, no rapid heart rate, no cyanosis, and no pallor. She reports no difficulty swallowing, no abdominal pain, no nausea, no vomiting, no diarrhea, no constipation, and no blood in stools. She reports no blood in urine, no pain during urination, no increased frequency of urination, and no voiding urgency. She reports no increased thirst and no temperature intolerance. She reports no swollen glands. She reports no sinus pressure and no itching. Altered mentation and confusion was reported some of admission, currently improved. Past Medical History Past Medical History: Asthma, COPD, Diabetes Mellitus, Eye Disorder, Fibromya lgia, GERD/Reflux, Hyperlipidemia, Hypertension, Musculoskeletal Disorder, Pneumonia, Respiratory Disorder, Skin Disorder Additional Past Medical History / Comment(s): Bronchial asthma, tracheobronchomalacia, common variable immunoglobulin deficiency. Chronic back problems. chronic steroid use, suspected component of adrenal insufficiency due to chronic steroid use. Hiatal hernia. PAST [employer] HISTORY: She has no history of STDs. Pneumonia / In ICU in [place] after Back surgery - March 2019. Mycobacterium gordonae soft tissue infection. cataracts, glaucoma, fibromya lgia, chronic pain, compression fracture of the spine. covid History of Any Multi-Drug Resistant Organisms: MRSA Date of last positivie culture/infection: 2010 MDRO Source:: right hand Past Surgical History: Appendectomy, Back Surgery, Breast Surgery, Cholecystectomy, Tubal Ligation Additional Past Surgical History / Comment(s): MULT BRONCHS, WASHINGS, LAST 04/17/14. EXC [facility] CATARACT. BLEPHAROPLASTY/ R&L BREAST BIOPSIES; PORT A CATH IN LEFT CHEST-CHANGED TO RT CHEST,EXC MYCOBACTERIUM AREAS RT ARM 2011; UPPER TEETH EXTRACTED. RT SALPINGECTOMY/FALLOPIAN TUBE REMOVED, I&D BOIL.Jul [facility]CLE SURGERY; - mouth (bone) surgery. Pain pump insertion to left buttocks - October 2016. Colonoscopy 2014. Hiatal hernia surgeries 2014&2016. Back surgery (Decompresssion) - February 2019 Past Anesthesia/Blood Transfusion Reactions: Motion Sickness, Postoperative Nausea & Vomiting (PONV) Past Psychological History: Anxiety, Depression Smoking Status: Never smoker Past Alcohol Use History: None Reported Past Drug Use History: None Reported - Past Family History Mother Family Medical History: Cancer Additional Family Medical History / Comment(s): BREAST CANCER. Father Additional Family Medical History / Comment(s): r/t suicide Medications and Allergies Home Medications Medication Instructions Recorded Confirmed Type RX: Escitalopram [Lexapro] 20 mg PO QAM 01/01/14 03/03/21 History RX: Spironolactone [Aldactone] 25 mg PO QID 01/01/14 03/03/21 History RX: Potassium Chloride ER [K-Dur 60 meq PO BID 11/06/14 03/03/21 History 20] RX: Amitriptyline HCl [Elavil] 30 mg PO HS 12/07/14 03/03/21 History RX: traZODone HCL 75 mg PO HS 09/10/16 03/03/21 History RX: buPROPion XL [Wellbutrin XL] 450 mg PO DAILY 07/24/17 03/03/21 History RX: Fluticasone/Salmeterol [Advair 2 puff INHALATION RT-BID 04/09/19 03/03/21 History Hfa 230-21 Mcg Inhaler] RX: Pregabalin [Lyrica] 100 mg PO TID 04/09/19 03/03/21 History RX: Montelukast [Singulair] 10 mg PO HS 08/01/19 03/03/21 History RX: Budesonide [Pulmicort] 0.5 mg INHALATION RT-BID 03/31/20 03/03/21 History RX: ALPRAZolam [Xanax] 0.5 mg PO TID 07/21/20 03/03/21 History RX: Furosemide [Lasix] 20 mg PO BID 07/21/20 03/03/21 History RX: Pantoprazole [Protonix] 40 mg PO DAILY 07/21/20 03/03/21 History RX: Pravastatin Sodium [Pravachol] 10 mg PO HS 07/21/20 03/03/21 History RX: Promethazine 6.25MG/5Ml 6.25 mg PO QID PRN 07/21/20 03/03/21 History [Phenergan Syrup] RX: Acetaminophen Tab [Tylenol] 650 mg PO Q6HR PRN tab 07/27/20 03/03/21 Rx RX: Albuterol Inhaler [Ventolin 2 puff INHALATION RT-QID PRN #1 07/27/20 03/03/21 Rx Hfa Inhaler] puff Calcium Carbonate [Calcium] 600 mg PO BID 03/03/21 03/03/21 History Denosumab [Prolia] 60 mg SQ Q180D 03/03/21 03/03/21 History Docusate [Colace] 100 mg PO BID 03/03/21 03/03/21 History Insulin Glargine,Hum.rec.anlog 10 unit SQ HS 03/03/21 03/03/21 History [Lantus Solostar] RX: Glucagon Emergency Kit 1 mg IM ONCE PRN 03/03/21 03/03/21 History RX: Insulin Aspart [NovoLOG 6 units SQ AC-TID 03/03/21 03/03/21 History Flexpen] RX: busPIRone HCL 30 mg PO BID 03/03/21 03/03/21 History RX: predniSONE 40 mg PO DAILY 03/03/21 03/03/21 History Allergies Allergy/AdvReac Type Severity Reaction Status Date / Time crisaborole [From Eucrisa] Allergy Rash/Hives Verified 03/03/21 09:35 cefuroxime axetil AdvReac Severe Abdominal Verified 03/03/21 09:35 [From Ceftin] Pain ciprofloxacin HCl AdvReac Severe Abdominal Verified 03/03/21 09:35 [From Cipro] Pain erythromycin base AdvReac Unknown Abdominal Verified 03/03/21 09:35 [Erythromycin Base] Pain sulfamethoxazole AdvReac Unknown Abdominal Verified 03/03/21 09:35 [From Bactrim] Pain trimethoprim [From Bactrim] AdvReac Unknown Abdominal Verified 03/03/21 09:35 Pain indomethacin sodium AdvReac severe Verified 03/03/21 09:35 [From Indocin] Confusion NSAIDS (Non-Steroidal AdvReac Dyspnea Verified 03/03/21 09:35 Anti-Inflamma Penicillins AdvReac Nausea & Verified 03/03/21 09:35 Vomiting Sulfa (Sulfonamide AdvReac Abdominal Verified 03/03/21 09:35 Antibiotics) Pain Physical Exam Vitals: Vital Signs Temp Pulse Resp BP Pulse Ox 03/03/21 10:20 95 18 99/48 96 03/03/21 07:55 98.2 F 99 16 97/45 100 03/03/21 07:42 98 03/03/21 07:32 99 03/03/21 07:05 98.8 F 101 H 18 90/55 97 03/03/21 06:38 102 H 16 84/39 94 L 03/03/21 05:55 101.3 F H 111 H 16 72/41 90 L Intake and Output 03/02/21 03/03/21 03/03/21 22:59 06:59 14:59 Other: Weight 56.699 kg General Appearance no diaphoresis, dyspnea, pallor, or respiratory distress and speech not interrupted by breaths, not cachectic, well nourished, and appears ill. HEENT no pursed lip breathing, jugular venous distention, mucous membrane cyanosis, or perioral cyanosis and mallampati classification: class 1 and Mallampati Classification: Class 3; thrush. Chest no retractions, rhonchi, hyperinflation, sternocleidomastoid muscle contractions, supraclavicular retractions, intercostal retractions, or decreased air movement; barrel chest and decreased air movement; and (normal) adventitious sounds: rales / crackles: bilaterally: midlung wallace. Heart no right ventricular heave, distant heart sounds, or s3 gallop and (normal) jugular vein and vein: jugular venous distention: by 0cm. GI bowel sounds: hyperactive (borborygmi) and diminished or absent. Extremities no cyanosis, clubbing, or edema. Neurologic no somnolence, confusion, or decreased mental status; weaknesss in the LE , and she has global weakness. The patient was able to communicate and she seemed to be appropriate and alert and oriented 3. No focal neurological deficit at the time of evaluation. Assisstive Devices: ambulates with no assitive devices and ambulates with walker. Gait and Mobility: Was not assessed in the emergency department. Skin: General Appearance normal and (normal) Results - Laboratory Findings CBC and BMP: 03/03/21 06:25 03/03/21 06:25 PT/INR, D-dimer PT 10.2 sec (9.0-12.0) 03/03/21 06:25 INR 0.9 (<1.2) 03/03/21 06:25 Abnormal lab findings: Abnormal Labs 03/03/21 03/03/21 03/03/21 06:25 06:25 06:25 WBC 11.7 H Hgb 11.1 L MCV 79.2 L RDW 16.1 H Plt Count 123 L Neutrophils # 10.9 H Lymphocytes # 0.6 L APTT 18.0 L BUN 32 H Creatinine 1.10 H Glucose 172 H POC Glucose (mg/dL) Plasma Lactic Acid Geovanni AST 65 H ALT 48 H Alkaline Phosphatase 147 H Total Protein 5.5 L Albumin 3.0 L Urine Appearance Urine Protein Urine Blood Ur Leukocyte Esterase Urine RBC Urine WBC Urine WBC Clumps Urine Bacteria Urine Mucus 03/03/21 03/03/21 03/03/21 06:25 07:27 09:18 WBC Hgb MCV RDW Plt Count Neutrophils # Lymphocytes # APTT BUN Creatinine Glucose POC Glucose (mg/dL) Plasma Lactic Acid Geovanni 3.1 H* 4.0 H* AST ALT Alkaline Phosphatase Total Protein Albumin Urine Appearance Cloudy H Urine Protein 1+ H Urine Blood Moderate H Ur Leukocyte Esterase Large H Urine RBC 73 H Urine WBC 132 H Urine WBC Clumps Few H Urine Bacteria Rare H Urine Mucus Rare H 03/03/21 10:43 WBC Hgb MCV RDW Plt Count Neutrophils # Lymphocytes # APTT BUN Creatinine Glucose POC Glucose (mg/dL) 288 H Plasma Lactic Acid Geovanni AST ALT Alkaline Phosphatase Total Protein Albumin Urine Appearance Urine Protein Urine Blood Ur Leukocyte Esterase Urine RBC Urine WBC Urine WBC Clumps Urine Bacteria Urine Mucus - Diagnostic Findings Chest x-ray: image reviewed Assessment and Plan Plan: 1 acute urinary tract infection with secondary altered mentation, fever, dehydration and some mild lactic acidosis, improving. The patient was given IV fluids. The patient was given IV Rocephin. Mentation is gradually improving and currently she is afebrile hemodynamically stable. 2 altered mental status secondary to above 3 fever secondary to above 4 mild lactic acidosis 5 severe chronic bronchial asthma 6 previous history of COVID-19 related to pneumonia/infection, recovered and the repeat COVID-19 evaluation came back negative 7 recurrent UTIs 8 severe persistent bronchial asthma 9 chronic back pain 10 chronic variable immunoglobulin deficiency and the patient received long-term IVIG treatment 11 hyperlipidemia 12 obstructive sleep apnea with an AHI of 11 and the patient has been off treatment and the patient lost significant amount of weight 13 adrenal cortical hypofunction maintained on prednisone 20 mg on a daily basis on outpatient basis 14 diabetes mellitus type 2 with a limited HbA1c being at 6.6 15 compression fracture of the thoracic vertebra and the patient has chronic pain involving the back and the patient had a pain reservoir inserted with subse quent removal and the patient is currently on [place] for pain control 16, 17 bilateral cataracts 18 hiatal hernia 19 history of fall with pelvic fractures 20 history of chronic muscle weakness with a component of myositis Plan Continued IV fluids normal state rate of 130 mL an hour Continue IV Rocephin Urine cultures Blood cultures Resume all medications Resume prednisone 20 mg by mouth daily Resume Lantus insulin 10 units at bedtime along with sliding scale coverage We'll continue to follow
[2021-03-03] MEDS: INSULIN ASPART (NovoLOG) 100 UNIT/ML VIAL SQ SCH ×2 (12:07→17:49)
[2021-03-03] MEDS: ACETAMINOPHEN TAB 325 MG TAB PO PRN (12:22)
[2021-03-03] MEDS ORDERED: SPIRONOLACTONE 25 MG TAB PO SCH (13:00)
[2021-03-03 14:31] LABS: Glucose,Whole Blood 305 mg/dL (75-99)
[2021-03-03] MEDS ORDERED: DENOSUMAB 60 MG/ML 1 ML SYRINGE SQ SCH (16:30)
[2021-03-03] MEDS: ALPRAZolam 0.5 MG TAB PO SCH ×2 (16:40→22:51)
[2021-03-03] MEDS: PREGABALIN 100 MG CAP PO SCH ×3 (16:40→22:51)
--- NOTE | 2021-03-03 16:46 | P.HPIM ---
History of Present Illness H&P Date: 03/03/21 Chief Complaint: Fever and altered mental status changes Ms. Medrano is a 65-year-old female with a past medical history of asthma, COPD, diabetes mellitus, fibromyalgia, GERD, hypertension, hyperlipidemia, tracheomalacia, chronic low back pain, chronic steroid dependence, covid infection in June 2020 brought into the hospital by her with a chief complaint of fever and altered mental status changes. Patient has been is at the bedside, who is the primary caregiver and states that last night she had a fever, he came to Tylenol and with that she started to sweat but later on felt that she was very weak and her fever was as high as 103 and she also complained of some lower abdominal discomfort so the patient was brought in to the hospital for further evaluation. says that she had Covid 19 infection and no more of 2019, since then her mentation has been affected and usually around 3 PM in the evening she has sundowning like effect. He also noticed that last night she was not feeling herself. But he did not notice any weakness of her extrem ities, speech abnormalities. She usually walks with a walker at home. Patient denied having any headaches, blurring of vision or neck stiffness. No history of recent sick contacts. In the ER at the time of admission patient's vitals temperature of 101.3, heart rate 111, respiratory rate 60, blood pressure 72/41, saturating at 90% on room air. At the time of admission her labs white count of 11.1, hemoglobin 11, platelets 123. Sodium 140, potassium 3.7, chloride 106, bicarbonate 27, BUN 32, creatinine 1.10. Lactic acid 3.1. Urine analysis is positive for moderate blood large leukocyte esterase, 132 WBCs and negative for nitrites. Coronavirus PCR negative. Chest x-ray done showing left lung base atelectasis EKG showing sinus tachycardia Review of Systems REVIEW OF SYSTEMS: CONSTITUTIONAL: Fever and generalized weakness HEENT: No headache, no neck stiffness, no blurring of vision CARDIOVASCULAR: No chest pain or palpitations PULMONARY: No cough or difficulty in breathing GASTROINTESTINAL: No Abdominal pain nausea vomiting or diarrhea NEUROLOGICAL: No focal weakness of extremities HEMATOLOGICAL: Denies any bleeding or petechiae. GENITOURINARY: Denies any burning micturition, frequency, or urgency. MUSCULOSKELETAL/RHEUMATOLOGICAL: Denies any joint pain, swelling, or any muscle pain. ENDOCRINE: Denies polyuria polydipsia or heat or cold intolerance The rest of the 14-point review of systems is negative. Past Medical History Past Medical History: Asthma, COPD, Diabetes Mellitus, Eye Disorder, Fibromyalgia, GERD/Reflux, Hyperlipidemia, Hypertension, Musculoskeletal Disorder, Pneumonia, Respiratory Disorder, Skin Disorder Additional Past Medical History / Comment(s): Bronchial asthma, tracheobronchomalacia, common variable immunoglobulin deficiency. Chronic back problems. chronic steroid use, suspected component of adrenal insufficiency due to chronic steroid use. Hiatal hernia. 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 Pneumonia / In ICU in [place] after Back surgery - March 2019. Mycobacterium gordonae soft tissue infection. cataracts, glaucoma, fibromyalgia, chronic pain, compression fracture of the spine. covid History of Any Multi-Drug Resistant Organisms: MRSA Date of last positivie culture/infection: 2010 MDRO Source:: right hand Past Surgical History: Appendectomy, Back Surgery, Breast Surgery, Cholecystecto my, Tubal Ligation Additional Past Surgical History / Comment(s): MULT BRONCHS, WASHINGS, LAST 04/17/14. EXC [facility] CATARACT. BLEPHAROPLASTY/ R&L BREAST BIOPSIES; PORT A CATH IN L EFT CHEST-CHANGED TO RT CHEST,EXC MYCOBACTERIUM AREAS RT ARM 2011; UPPER TEETH EXTRACTED. RT SALPINGECTOMY/FALLOPIAN TUBE REMOVED, I&D BOIL.[facility]; - mouth (bone) surgery. Pain pump insertion to left buttocks - October 2016. Colonoscopy 2014. Hiatal hernia surgeries 2014&2015. Back surgery (Decompresssion) - February 2019 Past Anesthesia/Blood Transfusion Reactions: Motion Sickness, Postoperative Nausea & Vomiting (PONV) Past Psychological History: Anxiety, Depression Smoking Status: Never smoker Past Alcohol Use History: None Reported Past Drug Use History: None Reported - Past Family History Mother Family Medical History: Cancer Additional Family Medical History / Comment(s): BREAST CANCER. Father Additional Family Medical History / Comment(s): r/t suicide Medications and Allergies Home Medications Medication Instructions Recorded Confirmed Type Escitalopram [Lexapro] 20 mg PO QAM 01/01/14 03/03/21 History Spironolactone [Aldactone] 25 mg PO QID 01/01/14 03/03/21 History Potassium Chloride ER [K-Dur 20] 60 meq PO BID 11/06/14 03/03/21 History Amitriptyline HCl [Elavil] 30 mg PO HS 12/07/14 03/03/21 History traZODone HCL 75 mg PO HS 09/10/16 03/03/21 History buPROPion XL [Wellbutrin XL] 450 mg PO DAILY 07/24/17 03/03/21 History Fluticasone/Salmeterol [Advair Hfa 2 puff INHALATION RT-BID 04/09/19 03/03/21 History 230-21 Mcg Inhaler] Pregabalin [Lyrica] 100 mg PO TID 04/09/19 03/03/21 History Montelukast [Singulair] 10 mg PO HS 08/01/19 03/03/21 History Budesonide [Pulmicort] 0.5 mg INHALATION RT-BID 03/31/20 03/03/21 History ALPRAZolam [Xanax] 0.5 mg PO TID 07/21/20 03/03/21 History Furosemide [Lasix] 20 mg PO BID 07/21/20 03/03/21 History Pantoprazole [Protonix] 40 mg PO DAILY 07/21/20 03/03/21 History Pravastatin Sodium [Pravachol] 10 mg PO HS 07/21/20 03/03/21 History Promethazine 6.25MG/5Ml [Phenergan 6.25 mg PO QID PRN 07/21/20 03/03/21 History Syrup] Acetaminophen Tab [Tylenol] 650 mg PO Q6HR PRN tab 07/27/20 03/03/21 Rx Albuterol Inhaler [Ventolin Hfa 2 puff INHALATION RT-QID PRN #1 07/27/20 03/03/21 Rx Inhaler] puff Calcium Carbonate [Calcium] 600 mg PO BID 03/03/21 03/03/21 History Denosumab [Prolia] 60 mg SQ Q180D 03/03/21 03/03/21 History Docusate [Colace] 100 mg PO BID 03/03/21 03/03/21 History Glucagon Emergency Kit 1 mg IM ONCE PRN 03/03/21 03/03/21 History Insulin Aspart [NovoLOG Flexpen] 6 units SQ AC-TID 03/03/21 03/03/21 History Insulin Glargine,Hum.rec.anlog 10 unit SQ HS 03/03/21 03/03/21 History [Lantus Solostar] busPIRone HCL 30 mg PO BID 03/03/21 03/03/21 History predniSONE 40 mg PO DAILY 03/03/21 03/03/21 History Allergies Allergy/AdvReac Type Severity Reaction Status Date / Time crisaborole [From Eucrisa] Allergy Rash/Hives Verified 03/03/21 09:35 cefuroxime axetil AdvReac Severe Abdominal Verified 03/03/21 09:35 [From Ceftin] Pain ciprofloxacin HCl AdvReac Severe Abdominal Verified 03/03/21 09:35 [From Cipro] Pain erythromycin base AdvReac Unknown Abdominal Verified 03/03/21 09:35 [Erythromycin Base] Pain sulfamethoxazole AdvReac Unknown Abdominal Verified 03/03/21 09:35 [From Bactrim] Pain trimethoprim [From Bactrim] AdvReac Unknown Abdominal Verified 03/03/21 09:35 Pain indomethacin sodium AdvReac severe Verified 03/03/21 09:35 [From Indocin] Confusion NSAIDS (Non-Steroidal AdvReac Dyspnea Verified 03/03/21 09:35 Anti-Inflamma Penicillins AdvReac Nausea & Verified 03/03/21 09:35 Vomiting Sulfa (Sulfonamide AdvReac Abdominal Verified 03/03/21 09:35 Antibiotics) Pain Physical Exam Vitals: Vital Signs Temp Pulse Resp BP Pulse Ox 03/03/21 15:00 80 20 106/64 98 03/03/21 14:00 88 22 118/76 95 03/03/21 12:08 92 22 102/60 98 03/03/21 10:20 95 18 99/48 96 03/03/21 07:55 98.2 F 99 16 97/45 100 03/03/21 07:42 98 03/03/21 07:32 99 03/03/21 07:05 98.8 F 101 H 18 90/55 97 03/03/21 06:38 102 H 16 84/39 94 L 03/03/21 05:55 101.3 F H 111 H 16 72/41 90 L Intake and Output 03/03/21 03/03/21 03/03/21 06:59 14:59 22:59 Other: Weight 56.699 kg PHYSICAL EXAMINATION: GENERAL: Comfortably sitting up in bed appears in no acute distress. at the bedside. Abdominal obesity and extremities are thin HEENT: Pupils are round and equally reacting to light. EOMI. No scleral icterus. No conjunctival pallor. CARDIOVASCULAR: S1 and S2 present. No murmurs, rubs, or gallops. PULMONARY: Diminished breath sounds in all lung wallace. ABDOMEN: Soft,non -tender, normal bowel sounds. No guarding or rigidity. No CVA tenderness MUSCULOSKELETAL: No joint swelling or deformity. EXTREMITIES: No edema NEUROLOGICAL: Alert awake oriented 2-3 . Gross neurological examination did not reveal any focal deficits. SKIN: Frail Results CBC & Chem 7: 03/03/21 06:25 03/03/21 06:25 Labs: Abnormal Lab Results - Last 24 Hours (Table) 03/03/21 03/03/21 03/03/21 Range/Units 06:25 06:25 06:25 WBC 11.7 H (3.8-10.6) k/uL Hgb 11.1 L (11.4-16.0) gm/dL MCV 79.2 L (80.0-100.0) fL RDW 16.1 H (11.5-15.5) % Plt Count 123 L (150-450) k/uL Neutrophils # 10.9 H (1.3-7.7) k/uL Lymphocytes # 0.6 L (1.0-4.8) k/uL APTT 18.0 L (22.0-30.0) sec BUN 32 H (7-17) mg/dL Creatinine 1.10 H (0.52-1.04) mg/dL Glucose 172 H (74-99) mg/dL POC Glucose (mg/dL) (75-99) mg/dL Plasma Lactic Acid Geovanni (0.7-2.0) mmol/L AST 65 H (14-36) U/L ALT 48 H (4-34) U/L Alkaline Phosphatase 147 H (38-126) U/L Total Protein 5.5 L (6.3-8.2) g/dL Albumin 3.0 L (3.5-5.0) g/dL Urine Appearance (Clear) Urine Protein (Negative) Urine Blood (Negative) Ur Leukocyte Esterase (Negative) Urine RBC (0-5) /hpf Urine WBC (0-5) /hpf Urine WBC Clumps (None) /hpf Urine Bacteria (None) /hpf Urine Mucus (None) /hpf 03/03/21 03/03/21 03/03/21 Range/Units 06:25 07:27 09:18 WBC (3.8-10.6) k/uL Hgb (11.4-16.0) gm/dL MCV (80.0-100.0) fL RDW (11.5-15.5) % Plt Count (150-450) k/uL Neutrophils # (1.3-7.7) k/uL Lymphocytes # (1.0-4.8) k/uL APTT (22.0-30.0) sec BUN (7-17) mg/dL Creatinine (0.52-1.04) mg/dL Glucose (74-99) mg/dL POC Glucose (mg/dL) (75-99) mg/dL Plasma Lactic Acid Geovanni 3.1 H* 4.0 H* (0.7-2.0) mmol/L AST (14-36) U/L ALT (4-34) U/L Alkaline Phosphatase (38-126) U/L Total Protein (6.3-8.2) g/dL Albumin (3.5-5.0) g/dL Urine Appearance Cloudy H (Clear) Urine Protein 1+ H (Negative) Urine Blood Moderate H (Negative) Ur Leukocyte Esterase Large H (Negative) Urine RBC 73 H (0-5) /hpf Urine WBC 132 H (0-5) /hpf Urine WBC Clumps Few H (None) /hpf Urine Bacteria Rare H (None) /hpf Urine Mucus Rare H (None) /hpf 03/03/21 03/03/21 03/03/21 Range/Units 10:43 13:02 14:29 WBC (3.8-10.6) k/uL Hgb (11.4-16.0) gm/dL MCV (80.0-100.0) fL RDW (11.5-15.5) % Plt Count (150-450) k/uL Neutrophils # (1.3-7.7) k/uL Lymphocytes # (1.0-4.8) k/uL APTT (22.0-30.0) sec BUN (7-17) mg/dL Creatinine (0.52-1.04) mg/dL Glucose (74-99) mg/dL POC Glucose (mg/dL) 288 H 305 H (75-99) mg/dL Plasma Lactic Acid Geovanni 4.8 H* (0.7-2.0) mmol/L AST (14-36) U/L ALT (4-34) U/L Alkaline Phosphatase (38-126) U/L Total Protein (6.3-8.2) g/dL Albumin (3.5-5.0) g/dL Urine Appearance (Clear) Urine Protein (Negative) Urine Blood (Negative) Ur Leukocyte Esterase (Negative) Urine RBC (0-5) /hpf Urine WBC (0-5) /hpf Urine WBC Clumps (None) /hpf Urine Bacteria (None) /hpf Urine Mucus (None) /hpf Microbiology - Last 24 Hours (Table) 03/03/21 07:27 Urine Culture - Preliminary Urine,Catheterized Assessment and Plan Assessment: ASSESSMENT Severe sepsis secondary to UTI Encephalopathy secondary to above Lactic acidosis Severe persistent bronchial asthma Hypertension Hyperlipidemia Chronic low back pain Adrenal insufficiency maintained on 20 mg of prednisone daily Chronic variable immunoglobulin deficiency Obstructive sleep apnea on CPAP at night Type 2 diabetes mellitus Bilateral cataracts History of prior to hernia Gait instability History of pelvic fractures status post fall Moderate protein calorie malnutrition COVID -19 infection in June 2020 since COVID 19 infection PLAN: Continue with IV fluids and ceftriaxone for UTI, pending urine cultures and blood cultures Will hold off on blood pressure medications and nephrotoxins in view of her low blood pressure Patient has been restarted on all her home medications including prednisone Will titrate insulin requirements depending upon the blood sugars Will repeat labs a.m. The treatment plan was discussed in detail with the patient's at bedside Further recommendations to follow depending on the progress of the patient
[2021-03-03] MEDS ORDERED: MAG HYDROX/AL HYDROX/SIMETH 30 ML CUP PO PRN (17:21)
[2021-03-03 17:43] LABS: Glucose,Whole Blood 309 mg/dL (75-99)
[2021-03-03] MEDS: BUDESONIDE 0.5 MG/2 ML NEBU INHALATION SCH (20:06)
[2021-03-03] MEDS: SYMBICORT 160-4.5 MCG INHALER INHALATION SCH (20:06)
[2021-03-03] MEDS: ALBUTEROL HFA INHALER INHALATION PRN (20:06)
[2021-03-03] MEDS ORDERED: NON FORMULARY DRUG (Insulin Glargine,Hum.Rec.Anlog [Lantus Solostar] 100 UNIT/ML Insuln.Pe SQ SCH (21:00)
[2021-03-03] MEDS: traZODone HCL 50 MG TAB PO SCH (22:51)
[2021-03-03] MEDS: MONTELUKAST 10 MG TAB PO SCH (22:52)
[2021-03-03] MEDS: PRAVASTATIN SODIUM 20 MG TAB PO SCH (22:52)
[2021-03-03] MEDS ORDERED: INSULIN DETEMIR (LEVEMIR) 100 UNIT/ML SYR SQ SCH (22:52)
[2021-03-03 23:05] LABS: Glucose,Whole Blood 255 mg/dL (75-99)
[2021-03-03] MEDS: INSULIN DETEMIR (LEVEMIR) 100 UNIT/ML SYR SQ SCH (23:50)
--- NOTE | 2021-03-04 06:48 | CONS ---
CONSULTATION DATE OF SERVICE: 03/03/2021 REASON FOR CONSULTATION: UTI infection with multiple antibiotic allergy. HISTORY OF PRESENT ILLNESS: The patient is a 65-year-old female with past medical history significant for diabetes, asthma, history of recurrent UTI infection. The patient was brought into the ER for evaluation of fever and weakness. The patient's symptoms started last night. The patient was noticed to have fever when checked by . She did have a fever of 103 degrees Fahrenheit. The patient was feeling weak and no energy. The patient was given a dose of Tylenol with some improvement. The patient did have an episode of vomiting but no further vomiting has been noticed. The patient denies having any chest pain, shortness of breath or any worsening cough. No abdominal pain. No diarrhea or constipation. With her current symptom, the patient was evaluated by the ER physician. On arrival to the ER, the patient did have fever of 101.3 degrees Fahrenheit. The patient did have white count of 11.7, lactic acid was 4.8. BUN was elevated, creatinine is 1.10. Liver enzymes were mildly elevated. Urine was positive with large leukocyte esterase, more than 1-2 WBCs. Zapata PCR was negative. Urine culture is currently pending. The patient did have a chest x-ray with some atelectasis at the left lung base, slightly worse than last exam. The patient was started on Rocephin and admitted to the hospital. Infectious Disease was consulted because of multiple antibiotic allergies. She did have allergy to CEFUROXIME, however, mostly GI side effect as per discussion with the . REVIEW OF SYSTEMS: Positive points have been mentioned in HPI. Rest of the systems are negative. PAST MEDICAL HISTORY: Diabetes mellitus, asthma, history of recurrent urinary tract infection, fibromyalgia, gastroesophageal reflux disease, pneumonia. PAST SURGICAL HISTORY: Appendectomy, back surgery, cholecystectomy, tubal ligation. SOCIAL HISTORY: Denies smoking, drinking or drug use. FAMILY HISTORY: Mother with history of breast cancer. Father because of suicide. ALLERGIES: Multiple medications, see list. However, most of them have been GI intolerance and not true allergies. MEDICATIONS: The patient is currently on Tylenol, Maalox, Ventolin, Xanax, Elavil, Pulmicort, Symbicort, Wellbutrin, BuSpar, TUMS, Rocephin 1 g daily, Colace, Lexapro, NovoLog, Levemir, Singulair, Protonix, Pravachol, prednisone, Lyrica, , Desyrel. PHYSICAL EXAMINATION: VITAL SIGNS: Blood pressure is 111/66, pulse of 77, temperature 98.3, T-max 101. She is 94% on room air. GENERAL DESCRIPTION: The patient is an elderly female lying in bed in no distress. No tachypnea or accessory muscles of respiration use. HEENT: Examination shows slight pallor, no scleral icterus. Oral mucous membrane is dry. NECK: Trachea central, no thyromegaly. LUNGS: Unlabored breathing, clear to auscultation anteriorly. No wheeze or crackle. HEART: S1-S2, regular rate and rhythm. ABDOMEN: Soft, no tenderness. No guarding or rigidity. EXTREMITIES: No edema of the feet. SKIN: No rash or mass palpable. NEUROLOGICAL: Patient is awake, alert, oriented times three. Mood and affect normal. LABS: Hemoglobin 11.8, white count 11.7. Liver enzymes mildly elevated. Lactic acid was elevated. Urine is positive. Zapata PCR was negative. Chest x-ray with some increased infiltrate at the left lung base. DIAGNOSTIC IMPRESSION: 1. Patient admitted to the hospital with sepsis in this patient who did have a fever, elevated white count, elevated lactic acid. Source is likely urinary in this patient who did have a history of recurrent UTI, likely from enteric Gram-negative pathogen. No other obvious focus of infection. 2. Patient has multiple antibiotic allergies. Mostly GI side effects that will limit the number of antibiotics safe to use. 3. Elevated liver enzymes. PLAN: 1. Rocephin 1 g IV piggyback daily. 2. Gentle IV fluid. 3. Check an ultrasound of the liver and gallbladder area for elevated liver enzymes. 4. We will follow on clinical condition and culture to further adjust medication if needed. Thank you for this consultation. Will follow this patient along with you. MMODL / IJN: [id number] /
[2021-03-04 06:56] LABS: Glucose,Whole Blood 196 mg/dL (75-99)
[2021-03-04] MEDS: INSULIN ASPART (NovoLOG) 100 UNIT/ML VIAL SQ SCH ×3 (07:28→17:28)
[2021-03-04] MEDS: BUDESONIDE 0.5 MG/2 ML NEBU INHALATION SCH (08:02)
[2021-03-04] MEDS: SYMBICORT 160-4.5 MCG INHALER INHALATION SCH ×2 (08:27→20:10)
[2021-03-04 08:28] LABS: ALT 63 U/L (4-34); AST 52 U/L (14-36); African American GFR (CKD) >90 (>60 ml/min/1.73 sqM); Albumin 2.8 g/dL (3.5-5.0); Albumin/Globulin Ratio 1.1; Alkaline Phosphatase 102 U/L (38-126); Anion Gap 6 mmol/L; Blood Urea Nitrogen 21 mg/dL (7-17); Calcium 8.8 mg/dL (8.4-10.2); Carbon Dioxide 24 mmol/L (22-30); Chloride 110 mmol/L (98-107); Globulin 2.6 g/dL; Glucose 185 mg/dL (74-99); Non-African American GFR(CKD) >90 (>60 ml/min/1.73 sqM); Potassium 4.4 mmol/L (3.5-5.1); Sodium 140 mmol/L (137-145); Total Bilirubin 0.1 mg/dL (0.2-1.3); Total Protein 5.4 g/dL (6.3-8.2)
[2021-03-04] MEDS: CALCIUM CARBONATE 500 MG CHEWABLE PO SCH ×2 (09:16→21:39)
[2021-03-04] MEDS: predniSONE 20 MG TAB PO SCH (09:16)
[2021-03-04] MEDS: busPIRone HCl 10 MG TAB PO SCH ×2 (09:16→21:39)
[2021-03-04] MEDS: buPROPion XL 150 MG TAB.ER.24H PO SCH (09:17)
[2021-03-04] MEDS: PANTOPRAZOLE 40 MG TABLET PO SCH (09:17)
[2021-03-04] MEDS: ALPRAZolam 0.5 MG TAB PO SCH ×3 (09:17→21:39)
[2021-03-04] MEDS: PREGABALIN 100 MG CAP PO SCH ×3 (09:17→21:39)
[2021-03-04] MEDS: DOCUSATE 100 MG CAP PO SCH ×2 (09:17→21:39)
[2021-03-04] MEDS: ESCITALOPRAM 20 MG TAB PO SCH (09:17)
--- NOTE | 2021-03-04 09:17 | US ---
EXAMINATION TYPE: US abdomen complete DATE OF EXAM: 03/04/2021 COMPARISON: NONE CLINICAL HISTORY: 65 year-old female elevated liver enzymes TECHNIQUE: Multiple sonographic images of the abdomen are obtained. FINDINGS: EXAM MEASUREMENTS: Liver Length: 18.1 cm Gallbladder: Surgically absent CBD: 0.5 cm Spleen: 10.1 cm Right Kidney: 8.9 x 4.5 x 5.5 cm Left Kidney: 10.2 x 6.0 x 4.3 cm Pancreas: Obscured by bowel gas Liver: Increased attenuation. Cyst visualized with: 1.9 x 1.6 x 1.6 cm Gallbladder: Surgically absent Evidence for sonographic Rae's sign: No CBD: wnl Spleen: wnl Right Kidney: wnl Left Kidney: wnl Upper IVC: wnl Abd Aorta: wnl IMPRESSION: 1. At least mild hepatic steatosis. Incidental 1.9 cm cyst in the right liver lobe. 2. Status post cholecystectomy. No biliary ductal dilatation.
[2021-03-04 09:25] LABS: Basophils % (A) 0 %; Eosinophils % (A) 0 %; HCT 31.7 % (34.0-46.0); HGB 9.8 gm/dL (11.4-16.0); Hypochromasia Marked; Lymphocytes # (A) 0.8 k/uL (1.0-4.8); Lymphocytes % (A) 5 %; MCH 24.9 pg (25.0-35.0); MCHC 30.8 g/dL (31.0-37.0); MCV 80.7 fL (80.0-100.0); Mean Platelet Volume 9.6; Monocytes # (A) 0.5 k/uL (0-1.0); Monocytes % (A) 3 %; Neutrophils # (A) 14.3 k/uL (1.3-7.7); Neutrophils % (A) 91 %; Platelet Count 137 k/uL (150-450); RBC 3.93 m/uL (3.80-5.40); RDW 15.9 % (11.5-15.5); WBC 15.7 k/uL (3.8-10.6)
[2021-03-04 12:04] LABS: Glucose,Whole Blood 308 mg/dL (75-99)
--- NOTE | 2021-03-04 12:13 | P.PN ---
Subjective Progress Note Date: 03/04/21 Principal diagnosis: Altered mental status, acute urinary tract infection 65-year-old female patient, well-known to me, known to have many medical problems and comorbidities including issues related with severe persistent bronchial asthma, chronic steroid dependence,, very minimal double deficiency maintained on IVIG supplements, recurrent pneumonias infections, tracheal bron chomalacia, adrenal insufficiency related to chronic steroid use and chronic pain related to compression fracture of the thoracic spine treated surgically in the past and treated with a morphine pump reservoir there was inserted and subsequently removed. The patient came into the emergency department yesterday because of altered mentation, generalized weakness and fatigue, confusion and diaphoresis and sweating and fever. Temperature was as high as 11.3. Chest x-ray was done and it showed some atelectatic changes and left lung base. Noted. Indication of an underlying pneumonia. UA was abnormal and the patient was given diagnosis and acute urine checked infection and the patient was started on IV Rocephin and IV fluids was given and she will be admitted to the floor. Lactic acid level was 4.0. Noted the patient has been infected with COVID-19 in the past and the repeat COVID-19 evaluation came back negative. As stated, urinalysis was abnormal and there was increase/along with some few WBC clumps. Culture is still pending. The white cell count is at 11.7 and the platelet count is 123. She is much more awake at this point in time. She is communicating. No focal neurological deficit. She was able to recognize maintenance we had a conversation that was quite appropriate. No nausea. No vomiting. No emesis. She is adequately being hydrated with IV fluids. She is on normal saline at the rate of 130 mL an hour. On 03/04/2021 patient seen in follow-up on medical surgical floor. Her is at the bedside today, patient is sitting up on the edge of the bed, she is on room air, she is breathing comfortably, however she seems to be very restless, she is confused which the claims that is not too far off her baseline. Seems to be anxious, she is on her home dose Xanax, she is on her home dose antidepressants. Patient is refusing any Haldol or any other antipsychotics. Room air pulse ox is 94-90%, she is afebrile, hemodynamically she stable, she is on Rocephin, urine and blood cultures are pending, have shown no growth thus far. Today's labs have been reviewed, renal profile is improving, lung sounds have been stable, she's had no fever or chills. Breathing is stable, her COPD is stable Objective - Vital Signs Vital signs: Vital Signs Temp 98.8 F 03/04/21 07:41 Pulse 74 03/04/21 07:41 Resp 18 03/04/21 07:41 BP 126/70 03/04/21 07:41 Pulse Ox 94 L 03/04/21 07:41 Intake & Output 03/03/21 03/04/21 03/04/21 18:59 06:59 18:59 Weight 56.699 kg Other: Voiding Method Bedside Commode # Voids 1 # Bowel Movements 1 - Exam GENERAL EXAM: Alert, confused, 65-year-old white female, on room air, with pulse ox of 94-90%, oriented to self, but not to person or time. Seems to be a bit emotional, and deteriorating, restless, but does not appear to be in any acute distress, comfortable in no apparent distress. HEAD: Normocephalic/atraumatic. EYES: Normal reaction of pupils, equal size. Conjunctiva pink, sclera white. NOSE: Clear with pink turbinates. THROAT: No erythema or exudates. NECK: No masses, no JVD, no thyroid enlargement, no adenopathy. CHEST: No chest wall deformity. Symmetrical expansion. LUNGS: Equal air entry with no crackles, wheeze, rhonchi or dullness. CVS: Regular rate and rhythm, normal S1 and S2, no gallops, no murmurs, no rubs ABDOMEN: Soft, nontender. No hepatosplenomegaly, normal bowel sounds, no guarding or rigidity. EXTREMITIES: No clubbing, no edema, no cyanosis, 2+ pulses and upper and lower extremities. MUSCULOSKELETAL: Muscle strength and tone normal. SPINE: No scoliosis or deformity SKIN: No rashes CENTRAL NERVOUS SYSTEM: Alert and oriented -1. No focal deficits, tone is normal in all 4 extremities. PSYCHIATRIC: Alert and oriented -1. Appropriate affect. Intact judgment and insight. - Labs CBC & Chem 7: 03/04/21 07:05 03/04/21 07:05 Labs: Abnormal Lab Results - Last 24 Hours (Table) 03/03/21 03/03/21 03/03/21 Range/Units 13:02 14:29 17:42 WBC (3.8-10.6) k/uL Hgb (11.4-16.0) gm/dL Hct (34.0-46.0) % MCH (25.0-35.0) pg MCHC (31.0-37.0) g/dL RDW (11.5-15.5) % Plt Count (150-450) k/uL Neutrophils # (1.3-7.7) k/uL Lymphocytes # (1.0-4.8) k/uL Chloride (98-107) mmol/L BUN (7-17) mg/dL Glucose (74-99) mg/dL POC Glucose (mg/dL) 305 H 309 H (75-99) mg/dL Plasma Lactic Acid Geovanni 4.8 H* (0.7-2.0) mmol/L Total Bilirubin (0.2-1.3) mg/dL AST (14-36) U/L ALT (4-34) U/L Total Protein (6.3-8.2) g/dL Albumin (3.5-5.0) g/dL 03/03/21 03/04/21 03/04/21 Range/Units 23:03 06:54 07:05 WBC 15.7 H (3.8-10.6) k/uL Hgb 9.8 L (11.4-16.0) gm/dL Hct 31.7 L (34.0-46.0) % MCH 24.9 L (25.0-35.0) pg MCHC 30.8 L (31.0-37.0) g/dL RDW 15.9 H (11.5-15.5) % Plt Count 137 L (150-450) k/uL Neutrophils # 14.3 H (1.3-7.7) k/uL Lymphocytes # 0.8 L (1.0-4.8) k/uL Chloride (98-107) mmol/L BUN (7-17) mg/dL Glucose (74-99) mg/dL POC Glucose (mg/dL) 255 H 196 H (75-99) mg/dL Plasma Lactic Acid Geovanni (0.7-2.0) mmol/L Total Bilirubin (0.2-1.3) mg/dL AST (14-36) U/L ALT (4-34) U/L Total Protein (6.3-8.2) g/dL Albumin (3.5-5.0) g/dL 03/04/21 Range/Units 07:05 WBC (3.8-10.6) k/uL Hgb (11.4-16.0) gm/dL Hct (34.0-46.0) % MCH (25.0-35.0) pg MCHC (31.0-37.0) g/dL RDW (11.5-15.5) % Plt Count (150-450) k/uL Neutrophils # (1.3-7.7) k/uL Lymphocytes # (1.0-4.8) k/uL Chloride 110 H (98-107) mmol/L BUN 21 H (7-17) mg/dL Glucose 185 H (74-99) mg/dL POC Glucose (mg/dL) (75-99) mg/dL Plasma Lactic Acid Geovanni (0.7-2.0) mmol/L Total Bilirubin 0.1 L (0.2-1.3) mg/dL AST 52 H (14-36) U/L ALT 63 H (4-34) U/L Total Protein 5.4 L (6.3-8.2) g/dL Albumin 2.8 L (3.5-5.0) g/dL Microbiology - Last 24 Hours (Table) 03/03/21 06:25 Blood Culture - Preliminary Blood No Growth after 24 hours 03/03/21 06:10 Blood Culture - Preliminary Blood No Growth after 24 hours 03/03/21 07:27 Urine Culture - Preliminary Urine,Catheterized Assessment and Plan Plan: Assessment: 1 acute urinary tract infection with secondary altered mentation, fever, dehydration and some mild lactic acidosis, improving. The patient was given IV fluids. The patient was given IV Rocephin. Mentation is gradually improving and currently she is afebrile hemodynamically stable. 2 altered mental status secondary to above 3 fever secondary to above, improved 4 mild lactic acidosis, resolved 5 severe chronic bronchial asthma 6 previous history of COVID-19 related to pneumonia/infection, recovered and the repeat COVID-19 evaluation came back negative 7 recurrent UTIs 8 severe persistent bronchial asthma 9 chronic back pain 10 chronic variable immunoglobulin deficiency and the patient received long-term IVIG treatment 11 hyperlipidemia 12 obstructive sleep apnea with an AHI of 11 and the patient has been off treatment and the patient lost significant amount of weight 13 adrenal cortical hypofunction maintained on prednisone 20 mg on a daily basis on outpatient basis 14 diabetes mellitus type 2 with a limited HbA1c being at 6.6 15 compression fracture of the thoracic vertebra and the patient has chronic pain involving the back and the patient had a pain reservoir inserted with subsequent removal and the patient is currently on [place] for pain control 16, 17 bilateral cataracts 18 hiatal hernia 19 history of fall with pelvic fractures 20 history of chronic muscle weakness with a component of myositis Plan: Continue Rocephin Awaiting blood and urine cultures Vital signs are stable No fever or chills Maintaining safety precautions May need sitter when the is not available Breathing is stable, continue home dose prednisone Anticipate discharge home tomorrow I performed a history & physical examination of the patient and discussed their management with my nurse practitioner, Eloise Hicks. I reviewed the nurse practitioner's note and agree with the documented findings and plan of care. Lung sounds are positive for diminished breath sounds. The findings and the impression was discussed with the patient. I attest to the documentation by the nurse practitioner. Time with Patient: Less than 30
--- NOTE | 2021-03-04 15:24 | CDI ---
Documentation Clarification Form Date: 03/04/2021 03:14:26 PM From: Cecelia Oh CCS, CCDS Admit Date: 03/03/2021 08:50:00 AM Patient Name: Amelia Medrano Visit Number: [id number] Discharge Date: ATTENTION: The Clinical Documentation Specialists (CDI) and [facility] Coding Staff appreciate your assistance in clarifying documentation. Please respond to the clarification below the line at the bottom and electronically sign. The CDI & [facility] Coding staff will review the response and follow-up if needed. Please note: Queries are made part of the Legal Health Record. If you have any questions, please contact the author of this message via ITS. Dr. Maria Antonia Sawyer: Encephalopathy is documented in the 03/03 H/P without further specificity. Additional clarification regarding the type of encephalopathy is requested. History/Risk Factors per the 03/03 H/P: Recurrent UTIs & Pneumonia, Severe persistent bronchial asthma, Hypertension, Hyperlipidemia, Compression fracture of the lumbar spine with Chronic low back garcia, Chronic variable immunoglobulin deficiency, Adrenal insufficiency on prison Prednisone, CECI on CPAP at night, DM II, Bilateral cataracts, Gait Instability, Moderate PCM w/BMI 22.9, COVID 19 in Jun & since COV. Clinical Indicators: Presented to the ED on 03/03 via [facility] with Weakness, fever & altered mental status. ED Clinical Impression: Sepsis due to UTI 03/03 VS: T 101.3, P 111, R 16, BP 72/41, PO 90 RA - 94 2Lnc 03/03 LAB: WBC 11.7, Hgb 11.1, Pl Ct 123, Neut 10.9, Lymph 0.6, APTT 18.0, BUN 32, Cr 1.10, Glucose 172, Lactic Acid 3.1, 4.0, 4.8; AST 65, ALT 48, Alk Phos 147, Total Protein 5.5, Albumin 3.0 UA: Cloudy, 1+ protein, Mod blood, Negative nitrite COVID Negative 03/03 CXR: Atelectasis left lung base slightly worse than prior exam, No heart failure. CT Brain not done EEG not done Treatment: IV fl N Cl 1,000 mls @ 999 mls/hr q1Hr x2, IV Na Cl 1,000 mls @ 130 mls/hr q7Hr, IV Rocephin, INH Duoneb, IV Solumedrol, INH Ventolin, O2 2Lnc Consults: 03/03 Infectious Disease: Sepsis, source is urinary. Please clarify the type of encephalopathy, if known: [ ] Metabolic Encephalopathy [ ] Septic Encephalopathy [ ] Toxic Encephalopathy [ ] Other, please specify [ ] Unable to determine (Template Last Revised: October 2020) Septic Encephalopathy MTDD
[2021-03-04 16:40] LABS: Glucose,Whole Blood 280 mg/dL (75-99)
--- NOTE | 2021-03-04 18:06 | PN ---
PROGRESS NOTE DATE OF SERVICE: 03/04/2021. REASON FOR FOLLOWUP: Urinary tract infection. INTERVAL HISTORY: The patient is afebrile. The patient is feeling better. Breathing comfortably. Denies having any chest pain, shortness of breath or cough. No abdominal pain, no diarrhea. PHYSICAL EXAMINATION: Her blood pressure 132/72 with a pulse of 79, temperature is 10.4. She is 94%. GENERAL DESCRIPTION: Is an elderly female lying in bed, in no distress. RESPIRATORY SYSTEM: Unlabored breathing, clear to auscultation anteriorly. HEART: S1, S2. Regular rate. ABDOMEN: Soft, no tenderness. LAB DATA: Hemoglobin is 9.1, white count 15.7, BUN of 21, creatinine 0.57. DIAGNOSTIC IMPRESSION AND PLAN: Patient admitted to the hospital with fever, concerning for urinary tract infection. This patient seems to have clinically responded to Rocephin, to continue. White count slightly up and we will monitor closely. Continue supportive care. MMODL / IJN: [id number] /
[2021-03-04] MEDS: ACETAMINOPHEN TAB 325 MG TAB PO PRN (19:29)
[2021-03-04] MEDS: ALBUTEROL HFA INHALER INHALATION PRN (20:10)
[2021-03-04 20:24] LABS: Glucose,Whole Blood 160 mg/dL (75-99)
[2021-03-04] MEDS: INSULIN DETEMIR (LEVEMIR) 100 UNIT/ML SYR SQ SCH (21:39)
[2021-03-04] MEDS: MONTELUKAST 10 MG TAB PO SCH (21:39)
[2021-03-04] MEDS: traZODone HCL 50 MG TAB PO SCH (21:39)
[2021-03-04] MEDS: AMITRIPTYLINE HCL 10 MG TAB PO SCH (21:39)
[2021-03-04] MEDS: PRAVASTATIN SODIUM 20 MG TAB PO SCH (21:39)
--- NOTE | 2021-03-05 01:32 | P.PN ---
Subjective Progress Note Date: 03/04/21 Principal diagnosis: Sepsis Ms. Medrano is a 65-year-old female with a past medical history of asthma, COPD, diabetes mellitus, fibromyalgia, GERD, hypertension, hyperlipidemia, tracheomalacia, chronic low back pain, chronic steroid dependence, covid infection in June 2020 brought into the hospital by her with a chief complaint of fever and altered mental status changes. Patient has been is at the bedside, who is the primary caregiver and states that last night she had a fever, he came to Tylenol and with that she started to sweat but later on felt that she was very weak and her fever was as high as 103 and she also complained of some lower abdominal discomfort so the patient was brought in to the hospital for further evaluation. says that she had Covid 19 infection and no more of 2019, since then her mentation has been affected and usually around 3 PM in the evening she has sundowning like effect. He also noticed that last night she was not feeling herself. But he did not notice any weakness of her extremities, speech abnormalities. She usually walks with a walker at home. Patient denied having any headaches, blurring of vision or neck stiffness. No history of recent sick contacts. In the ER at the time of admission patient's vitals temperature of 101.3, heart rate 111, respiratory rate 60, blood pressure 72/41, saturating at 90% on room air. At the time of admission her labs white count of 11.1, hemoglobin 11, plat elets 123. Sodium 140, potassium 3.7, chloride 106, bicarbonate 27, BUN 32, creatinine 1.10. Lactic acid 3.1. Urine analysis is positive for moderate blood large leukocyte esterase, 132 WBCs and negative for nitrites. Coronavirus PCR negative. Chest x-ray done showing left lung base atelectasis EKG showing sinus tachycardia On 03/04/2021-patient is seen and examined at the bedside. She is comfortably sitting up appears to be in no acute distress. She is having her lunch. Patient has no active complaints. As per discussion with her has been patient's mentation is pretty much back to baseline. On reviewing the vitals temperature afebrile in the past 24 hours, heart rate 79, respiratory rate 18, blood pressure 132/72, saturating at 94% on room air. On reviewing the labs white count of 15.7, hemoglobin 9.8, platelet count 137, sodium 140, potassium 4.4, chloride 110, bicarb 24, BUN 21, creatinine 0.57. Albumin 2.8. Urine culture positive for gram-negative bacilli. Blood culture no growth till date. Patient's medications have been reviewed she continues to be on antibiotic in the form of ceftriaxone Objective - Vital Signs Vital signs: Vital Signs Temp 98.8 F 03/04/21 07:41 Pulse 74 03/04/21 07:41 Resp 18 03/04/21 07:41 BP 126/70 03/04/21 07:41 Pulse Ox 94 L 03/04/21 07:41 Intake & Output 03/03/21 03/04/21 03/04/21 18:59 06:59 18:59 Weight 56.699 kg Other: Voiding Method Bedside Commode # Voids 1 # Bowel Movements 1 - Exam PHYSICAL EXAMINATION: GENERAL: Comfortably sitting up in bed appears in no acute distress. at the bedside. Abdominal obesity and extremities are thin HEENT: Pupils are round and equally reacting to light. EOMI. No scleral icterus. No conjunctival pallor. CARDIOVASCULAR: S1 and S2 present. No murmurs, rubs, or gallops. PULMONARY: Diminished breath sounds in all lung wallace. ABDOMEN: Soft,non -tender, normal bowel sounds. No guarding or rigidity. No CVA tenderness MUSCULOSKELETAL: No joint swelling or deformity. EXTREMITIES: No edema NEUROLOGICAL: Alert awake oriented 2-3 . Gross neurological examination did not reveal any focal deficits. SKIN: Frail - Labs CBC & Chem 7: 03/04/21 07:05 03/04/21 07:05 Labs: Abnormal Lab Results - Last 24 Hours (Table) 03/03/21 03/03/21 03/03/21 Range/Units 13:02 14:29 17:42 WBC (3.8-10.6) k/uL Hgb (11.4-16.0) gm/dL Hct (34.0-46.0) % MCH (25.0-35.0) pg MCHC (31.0-37.0) g/dL RDW (11.5-15.5) % Plt Count (150-450) k/uL Neutrophils # (1.3-7.7) k/uL Lymphocytes # (1.0-4.8) k/uL Chloride (98-107) mmol/L BUN (7-17) mg/dL Glucose (74-99) mg/dL POC Glucose (mg/dL) 305 H 309 H (75-99) mg/dL Plasma Lactic Acid Geovanni 4.8 H* (0.7-2.0) mmol/L Total Bilirubin (0.2-1.3) mg/dL AST (14-36) U/L ALT (4-34) U/L Total Protein (6.3-8.2) g/dL Albumin (3.5-5.0) g/dL 03/03/21 03/04/21 03/04/21 Range/Units 23:03 06:54 07:05 WBC 15.7 H (3.8-10.6) k/uL Hgb 9.8 L (11.4-16.0) gm/dL Hct 31.7 L (34.0-46.0) % MCH 24.9 L (25.0-35.0) pg MCHC 30.8 L (31.0-37.0) g/dL RDW 15.9 H (11.5-15.5) % Plt Count 137 L (150-450) k/uL Neutrophils # 14.3 H (1.3-7.7) k/uL Lymphocytes # 0.8 L (1.0-4.8) k/uL Chloride (98-107) mmol/L BUN (7-17) mg/dL Glucose (74-99) mg/dL POC Glucose (mg/dL) 255 H 196 H (75-99) mg/dL Plasma Lactic Acid Geovanni (0.7-2.0) mmol/L Total Bilirubin (0.2-1.3) mg/dL AST (14-36) U/L ALT (4-34) U/L Total Protein (6.3-8.2) g/dL Albumin (3.5-5.0) g/dL 03/04/21 03/04/21 Range/Units 07:05 12:02 WBC (3.8-10.6) k/uL Hgb (11.4-16.0) gm/dL Hct (34.0-46.0) % MCH (25.0-35.0) pg MCHC (31.0-37.0) g/dL RDW (11.5-15.5) % Plt Count (150-450) k/uL Neutrophils # (1.3-7.7) k/uL Lymphocytes # (1.0-4.8) k/uL Chloride 110 H (98-107) mmol/L BUN 21 H (7-17) mg/dL Glucose 185 H (74-99) mg/dL POC Glucose (mg/dL) 308 H (75-99) mg/dL Plasma Lactic Acid Geovanni (0.7-2.0) mmol/L Total Bilirubin 0.1 L (0.2-1.3) mg/dL AST 52 H (14-36) U/L ALT 63 H (4-34) U/L Total Protein 5.4 L (6.3-8.2) g/dL Albumin 2.8 L (3.5-5.0) g/dL Microbiology - Last 24 Hours (Table) 03/03/21 06:25 Blood Culture - Preliminary Blood No Growth after 24 hours 03/03/21 06:10 Blood Culture - Preliminary Blood No Growth after 24 hours 03/03/21 07:27 Urine Culture - Preliminary Urine,Catheterized Assessment and Plan Assessment: ASSESSMENT Severe sepsis secondary to UTI Encephalopathy secondary to above Lactic acidosis [place] Severe persistent bronchial asthma Hypertension Hyperlipidemia Chronic low back pain Adrenal insufficiency maintained on 20 mg of prednisone daily Chronic variable immunoglobulin deficiency Obstructive sleep apnea on CPAP at night Type 2 diabetes mellitus Bilateral cataracts History of prior to hernia Gait instability History of pelvic fractures status post fall Moderate protein calorie malnutrition COVID -19 infection in June 2020 since COVID 19 infection PLAN: Responding to IV fluids and ceftriaxone for UTI, urine cultures Gram negative bacilli Will hold off on blood pressure medications and nephrotoxins in view of her low blood pressure Patient has been restarted on all her home medications including prednisone Will titrate insulin requirements depending upon the blood sugars The treatment plan was discussed in detail with the patient's at bedside Further recommendations to follow depending on the progress of the patient
[2021-03-05 07:00] LABS: Glucose,Whole Blood 96 mg/dL (75-99)
[2021-03-05] MEDS: INSULIN ASPART (NovoLOG) 100 UNIT/ML VIAL SQ SCH ×2 (07:13→12:20)
[2021-03-05] MEDS: SYMBICORT 160-4.5 MCG INHALER INHALATION SCH (07:20)
[2021-03-05] MEDS: CALCIUM CARBONATE 500 MG CHEWABLE PO SCH (07:26)
[2021-03-05] MEDS: buPROPion XL 150 MG TAB.ER.24H PO SCH (07:26)
[2021-03-05] MEDS: predniSONE 20 MG TAB PO SCH (07:34)
[2021-03-05] MEDS: PANTOPRAZOLE 40 MG TABLET PO SCH (07:34)
[2021-03-05] MEDS: ALPRAZolam 0.5 MG TAB PO SCH (07:34)
[2021-03-05] MEDS: DOCUSATE 100 MG CAP PO SCH (07:34)
[2021-03-05] MEDS: busPIRone HCl 10 MG TAB PO SCH (07:35)
[2021-03-05] MEDS: PREGABALIN 100 MG CAP PO SCH (07:35)
[2021-03-05] MEDS: ESCITALOPRAM 20 MG TAB PO SCH (07:35)
[2021-03-05 07:47] VITALS: BP 164/92; PULSE 80; RESP 18; TEMP 97.5
[2021-03-05] MEDS ORDERED: HEPARIN SODIUM,PORCINE/PF 5,000 UNIT/0.5 ML SYRINGE SQ SCH (08:00)
[2021-03-05 08:40] LABS: Basophils % (A) 0 %; Eosinophils # (A) 0.1 k/uL (0-0.7); Eosinophils % (A) 1 %; HCT 33.7 % (34.0-46.0); HGB 10.8 gm/dL (11.4-16.0); Hypochromasia Moderate; Lymphocytes # (A) 1.6 k/uL (1.0-4.8); Lymphocytes % (A) 14 %; MCH 25.3 pg (25.0-35.0); Mean Platelet Volume 8.8; Monocytes # (A) 0.5 k/uL (0-1.0); Monocytes % (A) 4 %; Neutrophils # (A) 9.1 k/uL (1.3-7.7); Neutrophils % (A) 80 %; Platelet Count 118 k/uL (150-450); RBC 4.27 m/uL (3.80-5.40); RDW 15.7 % (11.5-15.5); WBC 11.3 k/uL (3.8-10.6)
[2021-03-05 09:02] LABS: African American GFR (CKD) >90 (>60 ml/min/1.73 sqM); Anion Gap 5 mmol/L; Blood Urea Nitrogen 20 mg/dL (7-17); Calcium 9.1 mg/dL (8.4-10.2); Carbon Dioxide 27 mmol/L (22-30); Chloride 111 mmol/L (98-107); Glucose 80 mg/dL (74-99); Non-African American GFR(CKD) >90 (>60 ml/min/1.73 sqM); Potassium 3.7 mmol/L (3.5-5.1); Sodium 143 mmol/L (137-145)
--- NOTE | 2021-03-05 10:47 | P.PN ---
Subjective Progress Note Date: 03/05/21 03/05/2021 St. he is doing well. No complaints. No fever or chills. Urine culture resulted into E. coli. The patient was on IV Rocephin. We are contemplating discharging this patient home on oral antibiotic, probably Levaquin. Going to discuss this case with the hospitalist group. Otherwise, there patient had an uneventful night. The labs from today shows a white cell count of 11, hemoglobin of 10, electrolytes are all within normal limits. Objective - Vital Signs Vital signs: Vital Signs Temp 97.5 F L 03/05/21 07:45 Pulse 80 03/05/21 07:45 Resp 18 03/05/21 07:45 BP 164/92 03/05/21 07:45 Pulse Ox 94 L 03/05/21 07:45 Intake & Output 03/04/21 03/05/21 03/05/21 18:59 06:59 18:59 Intake Total 50 Balance 50 Intake: Intake, IV Titration 50 Amount cefTRIAXone 1 gm In 50 Sodium Chloride 0.9% 50 ml @ 100 mls/hr IVPB Q24HR [facility] Rx#:[id number] Other: Voiding Method Toilet # Voids 2 1 - Exam GENERAL EXAM: Alert, confused, 65-year-old white female, on room air, with p ulse ox of 94-90%, oriented x 3 HEAD: Normocephalic/atraumatic. EYES: Normal reaction of pupils, equal size. Conjunctiva pink, sclera white. NOSE: Clear with pink turbinates. THROAT: No erythema or exudates. NECK: No masses, no JVD, no thyroid enlargement, no adenopathy. CHEST: No chest wall deformity. Symmetrical expansion. LUNGS: Equal air entry with no crackles, wheeze, rhonchi or dullness. CVS: Regular rate and rhythm, normal S1 and S2, no gallops, no murmurs, no rubs ABDOMEN: Soft, nontender. No hepatosplenomegaly, normal bowel sounds, no guarding or rigidity. EXTREMITIES: No clubbing, no edema, no cyanosis, 2+ pulses and upper and lower extremities. MUSCULOSKELETAL: Muscle strength and tone normal. SPINE: No scoliosis or deformity SKIN: No rashes CENTRAL NERVOUS SYSTEM: Alert and oriented -3. No focal deficits, tone is normal in all 4 extremities. - Labs CBC & Chem 7: 03/05/21 07:45 03/05/21 07:45 Labs: Abnormal Lab Results - Last 24 Hours (Table) 03/04/21 03/04/21 03/04/21 Range/Units 12:02 16:39 20:22 WBC (3.8-10.6) k/uL Hgb (11.4-16.0) gm/dL Hct (34.0-46.0) % MCV (80.0-100.0) fL RDW (11.5-15.5) % Plt Count (150-450) k/uL Neutrophils # (1.3-7.7) k/uL Chloride (98-107) mmol/L BUN (7-17) mg/dL POC Glucose (mg/dL) 308 H 280 H 160 H (75-99) mg/dL 03/05/21 03/05/21 Range/Units 07:45 07:45 WBC 11.3 H (3.8-10.6) k/uL Hgb 10.8 L (11.4-16.0) gm/dL Hct 33.7 L (34.0-46.0) % MCV 79.0 L (80.0-100.0) fL RDW 15.7 H (11.5-15.5) % Plt Count 118 L (150-450) k/uL Neutrophils # 9.1 H (1.3-7.7) k/uL Chloride 111 H (98-107) mmol/L BUN 20 H (7-17) mg/dL POC Glucose (mg/dL) (75-99) mg/dL Microbiology - Last 24 Hours (Table) 03/03/21 07:27 Urine Culture - Final Urine,Catheterized Escherichia coli 03/03/21 06:25 Blood Culture - Preliminary Blood No Growth after 48 hours 03/03/21 06:10 Blood Culture - Preliminary Blood No Growth after 48 hours Assessment and Plan Plan: 1 acute urinary tract infection with secondary altered mentation, fever, dehydration and some mild lactic acidosis, patient is recovered and the patient can be discharged home today. Mental status is normalized. The patient has an E. coli UTI. 2 altered mental status secondary to above recovered 3 fever secondary to above 4 mild lactic acidosis 5 severe chronic bronchial asthma 6 previous history of COVID-19 related to pneumonia/infection, recovered and the repeat COVID-19 evaluation came back negative 7 recurrent UTIs 8 severe persistent bronchial asthma 9 chronic back pain 10 chronic variable immunoglobulin deficiency and the patient received long-term IVIG treatment 11 hyperlipidemia 12 obstructive sleep apnea with an AHI of 11 and the patient has been off treatm ent and the patient lost significant amount of weight 13 adrenal cortical hypofunction maintained on prednisone 20 mg on a daily basis on outpatient basis 14 diabetes mellitus type 2 with a limited HbA1c being at 6.6 15 compression fracture of the thoracic vertebra and the patient has chronic jaosn n involving the back and the patient had a pain reservoir inserted with subsequent removal and the patient is currently on [place] for pain control 16, 17 bilateral cataracts 18 hiatal hernia 19 history of fall with pelvic fractures 20 history of chronic muscle weakness with a component of myositis Plan Patient discharged home on oral Levaquin. Continue same medications. Resume prednisone 20 mg by mouth daily Resume Lantus insulin 10 units at bedtime along with sliding scale coverage We'll continue to follow in the office
[2021-03-05] MEDS ORDERED: ACETAMINOPHEN IV (For NPO) 1,000 MG in EMPTY BAG 1 BAG IVPB PRN (11:00)
--- NOTE | 2021-03-05 11:36 | P.DS ---
Providers Date of admission: 03/03/21 08:50 Attending physician: Demarco Hart Consults: 03/03/21 08:58 Consult Physician Routine Consulting Provider: Ponce Kothari Consult Reason/Comments: Severe asthma Do you want consulting provider notified?: Yes 03/03/21 10:31 Consult Physician Urgent Consulting Provider: Nam Newman Consult Reason/Comments: urosepsis/ fevers Do you want consulting provider notified?: Yes Primary care physician: Ponce Kothari [facility] Course: Sepsis Ms. Medrano is a 65-year-old female with a past medical history of asthma, COPD, diabetes mellitus, fibromyalgia, GERD, hypertension, hyperlipidemia, tracheomalacia, chronic low back pain, chronic steroid dependence, covid infection in June 2020 brought into the hospital by her with a chief complaint of fever and altered mental status changes. Patient has been is at the bedside, who is the primary caregiver and states that last night she had a fever, he came to Tylenol and with that she started to sweat but later on felt that she was very weak and her fever was as high as 103 and she also complained of some lower abdominal discomfort so the patient was brought in to the hospital for further evaluation. says that she had Covid 19 infection and no more of 2019, since then her mentation has been affected and usually around 3 PM in the evening she has sundowning like effect. He also noticed that last night she was not feeling herself. But he did not notice any weakness of her extremities, speech abnormalities. She usually walks with a walker at home. Patient denied having any headaches, blurring of vision or neck stiffness. No history of recent sick contacts. In the ER at the time of admission patient's vitals temperature of 101.3, heart rate 111, respiratory rate 60, blood pressure 72/41, saturating at 90% on room air. At the time of admission her labs white count of 11.1, hemoglobin 11, platelets 123. Sodium 140, potassium 3.7, chloride 106, bicarbonate 27, BUN 32, creatinine 1.10. Lactic acid 3.1. Urine analysis is positive for moderate blood large leukocyte esterase, 132 WBCs and negative for nitrites. Coronavirus PCR negative. Chest x-ray done showing left lung base atelectasis EKG showing sinus tachycardia On 03/04/2021-patient is seen and examined at the bedside. She is comfortably sitting up appears to be in no acute distress. She is having her lunch. Patient has no active complaints. As per discussion with her has been patient's mentation is pretty much back to baseline. On reviewing the vitals temperature afebrile in the past 24 hours, heart rate 79, respiratory rate 18, blood pressure 132/72, saturating at 94% on room air. On reviewing the labs white count of 15.7, hemoglobin 9.8, platelet count 137, sodium 140, potassium 4.4, chloride 110, bicarb 24, BUN 21, creatinine 0.57. Albumin 2.8. Urine culture positive for gram-negative bacilli. Blood culture no growth till date. Patient's medications have been reviewed she continues to be on antibiotic in the form of ceftriaxone 03/05/2021 Patient has E. coli in the urine, patient was treated for severe sepsis secondary to urinary tract infection patient was febrile on admission. The patient's urine cultures are positive for E. coli which is sensitive to multiple antibiotics although patient has multiple ALLERGIES including cephalosporins but this is not actually an ALLERGY this is a side effect which is stomach upset. Patient is tolerating ceftriaxone here. Patient will be just discharged on Omnicef for 7 more days as recommended by infectious disease and patient will follow with Dr. Kothari as an outpatient. Patient was on Lasix as well as Aldactone, no history of congestive heart failure. These were discontinued most probably because of acute renal failure on admission all can you to hold them upon discharge and if needed as an outpatient can be restarted back. Patient also has adrenal insufficiency for which patient is on prednisone which she'll continue. PHYSICAL EXAMINATION: GENERAL: Comfortably sitting up in bed appears in no acute distress. at the bedside. Abdominal obesity and extremities are thin HEENT: Pupils are round and equally reacting to light. EOMI. No scleral icterus. No conjunctival pallor. CARDIOVASCULAR: S1 and S2 present. No murmurs, rubs, or gallops. PULMONARY: Diminished breath sounds in all lung wallace. ABDOMEN: Soft,non -tender, normal bowel sounds. No guarding or rigidity. No CVA tenderness MUSCULOSKELETAL: No joint swelling or deformity. EXTREMITIES: No edema NEUROLOGICAL: Alert awake oriented 2-3 . Gross neurological examination did not reveal any focal deficits. SKIN: Frail Severe sepsis secondary to UTI Encephalopathy secondary to above Lactic acidosis BRANDEE Severe persistent bronchial asthma Hypertension Hyperlipidemia Chronic low back pain Adrenal insufficiency maintained on 20 mg of prednisone daily Chronic variable immunoglobulin deficiency Obstructive sleep apnea on CPAP at night Type 2 diabetes mellitus Acute renal failure probably secondary to diuretics which are being held Bilateral cataracts History of prior to hernia Gait instability History of pelvic fractures status post fall Moderate protein calorie malnutrition COVID -19 infection in June 2020 since COVID 19 infection Patient Condition at Discharge: Fair Plan - Discharge Summary Discharge Rx Participant: No New Discharge Prescriptions: New Cefdinir [Omnicef] 300 mg PO Q12HR #14 capsule Continue Escitalopram [Lexapro] 20 mg PO QAM Amitriptyline HCl [Elavil] 30 mg PO HS traZODone HCL 75 mg PO HS buPROPion XL [Wellbutrin XL] 450 mg PO DAILY Pregabalin [Lyrica] 100 mg PO TID Fluticasone/Salmeterol [Advair Hfa 230-21 Mcg Inhaler] 2 puff INHALATION RT- BID Montelukast [Singulair] 10 mg PO HS Budesonide [Pulmicort] 0.5 mg INHALATION RT-BID Pravastatin Sodium [Pravachol] 10 mg PO HS Pantoprazole [Protonix] 40 mg PO DAILY ALPRAZolam [Xanax] 0.5 mg PO TID Promethazine 6.25MG/5Ml [Phenergan Syrup] 6.25 mg PO QID PRN PRN Reason: Cough Acetaminophen Tab [Tylenol] 650 mg PO Q6HR PRN tab PRN Reason: Mild Pain Or Fever > 100.5 Albuterol Inhaler [Ventolin Hfa Inhaler] 2 puff INHALATION RT-QID PRN #1 puff PRN Reason: Shortness Of Breath Calcium Carbonate [Calcium] 600 mg PO BID busPIRone HCL 30 mg PO BID Insulin Aspart [NovoLOG Flexpen] 6 units SQ AC-TID Denosumab [Prolia] 60 mg SQ Q180D predniSONE 40 mg PO DAILY #0 Glucagon Emergency Kit 1 mg IM ONCE PRN PRN Reason: Blood Sugar - Low Docusate [Colace] 100 mg PO BID Insulin Glargine,Hum.rec.anlog [Lantus Solostar] 10 unit SQ HS Discontinued Spironolactone [Aldactone] 25 mg PO QID Potassium Chloride ER [K-Dur 20] 60 meq PO BID Furosemide [Lasix] 20 mg PO BID Discharge Medication List Escitalopram [Lexapro] 20 mg PO QAM 01/01/14 [History] Amitriptyline HCl [Elavil] 30 mg PO HS 12/07/14 [History] traZODone HCL 75 mg PO HS 09/10/16 [History] buPROPion XL [Wellbutrin XL] 450 mg PO DAILY 07/24/17 [History] Fluticasone/Salmeterol [Advair Hfa 230-21 Mcg Inhaler] 2 puff INHALATION RT-BID 04/09/19 [History] Pregabalin [Lyrica] 100 mg PO TID 04/09/19 [History] Montelukast [Singulair] 10 mg PO HS 08/01/19 [History] Budesonide [Pulmicort] 0.5 mg INHALATION RT-BID 03/31/20 [History] ALPRAZolam [Xanax] 0.5 mg PO TID 07/21/20 [History] Pantoprazole [Protonix] 40 mg PO DAILY 07/21/20 [History] Pravastatin Sodium [Pravachol] 10 mg PO HS 07/21/20 [History] Promethazine 6.25MG/5Ml [Phenergan Syrup] 6.25 mg PO QID PRN 07/21/20 [History] Acetaminophen Tab [Tylenol] 650 mg PO Q6HR PRN tab 07/27/20 [Rx] Albuterol Inhaler [Ventolin Hfa Inhaler] 2 puff INHALATION RT-QID PRN #1 puff 07/27/20 [Rx] Calcium Carbonate [Calcium] 600 mg PO BID 03/03/21 [History] Denosumab [Prolia] 60 mg SQ Q180D 03/03/21 [History] Docusate [Colace] 100 mg PO BID 03/03/21 [History] Glucagon Emergency Kit 1 mg IM ONCE PRN 03/03/21 [History] Insulin Aspart [NovoLOG Flexpen] 6 units SQ AC-TID 03/03/21 [History] Insulin Glargine,Hum.rec.anlog [Lantus Solostar] 10 unit SQ HS 03/03/21 [History] busPIRone HCL 30 mg PO BID 03/03/21 [History] Cefdinir [Omnicef] 300 mg PO Q12HR #14 capsule 03/05/21 [Rx] predniSONE 40 mg PO DAILY #0 03/05/21 [Rx] Follow up Appointment(s)/Referral(s): Ponce Kothari MD [Primary Care Provider] - 3 Days Discharge Disposition: HOME SELF-CARE
[2021-03-05 11:44] LABS: Glucose,Whole Blood 187 mg/dL (75-99)
--- NOTE | 2021-03-05 14:12 | PN ---
PROGRESS NOTE DATE OF SERVICE: 03/05/2021 REASON FOR FOLLOWUP: E coli urinary tract infection with multiple antibiotic allergies. INTERVAL HISTORY: The patient is currently afebrile. Patient is breathing comfortably. Patient denies having any chest pain, shortness of breath, abdominal pain or diarrhea. PHYSICAL EXAMINATION: Blood pressure is 166/92 with a pulse of 80, temperature is 97.5. She is 94% on room air. GENERAL DESCRIPTION: Is an elderly female, up in the bed in no distress. RESPIRATORY SYSTEM: Unlabored breathing, clear to auscultation anteriorly. HEART: S1, S2. Regular rate and rhythm. LABS: Hemoglobin is 10.9, white count ( ), BUN of 20, creatinine 0.61. Urine with an E coli sensitive pathogen. DIAGNOSTIC IMPRESSION AND PLAN: Patient with E coli urinary tract infection with multiple antibiotic allergies. No significant GI side effects. The patient responded to the Rocephin. Continue with the oral Omnicef for 7 days. Discussed with the admitting physician, working on discharge. MMODL / IJN: [id number] /
[2021-03-05] MEDS ORDERED: PANTOPRAZOLE 40 MG/10 ML VIAL IVP SCH (21:00)
== END 2021-03-05 13:39 | disposition home or self-care (01) | DRG 871 ==
LOC: EC 05:54 → 6PED 08:50 → 4SSUR 09:23
PROVIDERS: ADMIT Hospitalist; ATTEND Hospitalist
PROC: 05HC33Z Insertion of Infusion Device into Left Basilic Vein, Percutaneous Approach (ICD-10-PCS; principal; 2021-03-04 17:20)
DX: A41.51 Sepsis due to Escherichia coli [E. coli] (principal); G93.41 Metabolic encephalopathy; N39.0 Urinary tract infection, site not specified; E27.40 Unspecified adrenocortical insufficiency; D83.9 Common variable immunodeficiency, unspecified; E87.2 Acidosis; E44.0 Moderate protein-calorie malnutrition; F05 Delirium due to known physiological condition; M48.54XA Collapsed vertebra, not elsewhere classified, thoracic region, initial encounter for fracture; N17.9 Acute kidney failure, unspecified; J98.11 Atelectasis; J44.9 Chronic obstructive pulmonary disease, unspecified; R65.20 Severe sepsis without septic shock; E11.36 Type 2 diabetes mellitus with diabetic cataract; B94.8 Sequelae of other specified infectious and parasitic diseases; T38.0X5A Adverse effect of glucocorticoids and synthetic analogues, initial encounter; J45.50 Severe persistent asthma, uncomplicated; R74.8 Abnormal levels of other serum enzymes; Z20.822 Contact with and (suspected) exposure to COVID-19; K44.9 Diaphragmatic hernia without obstruction or gangrene; M60.9 Myositis, unspecified; M62.81 Muscle weakness (generalized); Z79.4 Long term (current) use of insulin; Z68.22 Body mass index [BMI] 22.0-22.9, adult; K21.9 Gastro-esophageal reflux disease without esophagitis; G47.33 Obstructive sleep apnea (adult) (pediatric); R26.89 Other abnormalities of gait and mobility; E78.5 Hyperlipidemia, unspecified; J39.8 Other specified diseases of upper respiratory tract; I10 Essential (primary) hypertension; H40.9 Unspecified glaucoma; K76.0 Fatty (change of) liver, not elsewhere classified; M48.02 Spinal stenosis, cervical region; K76.89 Other specified diseases of liver; M48.50XD Collapsed vertebra, not elsewhere classified, site unspecified, subsequent encounter for fracture with routine healing; R54 Age-related physical debility; M79.7 Fibromyalgia; G89.29 Other chronic pain; M54.5 Low back pain; E86.0 Dehydration; F41.9 Anxiety disorder, unspecified; F32.9 Major depressive disorder, single episode, unspecified; Z96.41 Presence of insulin pump (external) (internal); Z90.49 Acquired absence of other specified parts of digestive tract; Z98.51 Tubal ligation status; Z98.42 Cataract extraction status, left eye; Z98.41 Cataract extraction status, right eye; Z90.79 Acquired absence of other genital organ(s); Z88.1 Allergy status to other antibiotic agents; Z88.2 Allergy status to sulfonamides; Z88.8 Allergy status to other drugs, medicaments and biological substances; Z87.01 Personal history of pneumonia (recurrent); Z87.19 Personal history of other diseases of the digestive system; Z79.51 Long term (current) use of inhaled steroids; Z79.899 Other long term (current) drug therapy; Z79.52 Long term (current) use of systemic steroids; Z87.440 Personal history of urinary (tract) infections; Z87.81 Personal history of (healed) traumatic fracture
CPT/HCPCS: 36410; 36415; 71046; 76700; 76937; 80048; 80053; 81001; 83605; 83735; 84484; 85025; 85610; 85730; 87040; 87077; 87086; 87186; 87635; 93005; 94640; 96361; 96374; 96375; 99285

== ENCOUNTER → 2021-04-14 | Outpatient (CLI) | payer MEDICARE ==
--- NOTE | 2021-04-14 13:15 | FL ---
EXAMINATION TYPE: FL single contrast barium swallow DATE OF EXAM: 04/14/2021 CLINICAL INDICATION: 66 year-old female K44.9, diaphragmatic hernia without obstruction. COMPARISON: 09/08/2017 Total Fluoroscopy Time: 2 minutes 14 seconds 53 images obtained. FINDINGS: Very limited ability to position the patient. The patient was standing with a slight tilt on the tabl e to take off weight from her legs. Thin barium, single contrast technique was utilized. Moderate tertiary peristaltic contractions are demonstrated. Normal course of the thoracic esophagus. No suspicious filling defect or mucosal lesion is encountered. There is a small sliding hiatal hernia visualized. Mild gastroesophageal reflux is visualized. Visualized stomach has a diffusely narrowed lumen which should be correlated with direct visualizatio n. IMPRESSION: 1. Exam very limited by patient's ability to position. Single contrast technique was utilized. 2. Presbyesophagus with moderate dysmotility. 3. Small sliding hiatal hernia. During the course of the exam, mild gastroesophageal reflux was seen. 4. Diffusely narrowed lumen of the stomach may be a consequence of single contrast technique. Conside r chronic gastritis. Direct visualization to exclude infiltrative lesion.
== END | disposition home or self-care (01) ==
LOC: RADUSWWP 09:44
PROVIDERS: ATTEND Surgery Plastic and Reconstructive Surgery
DX: K21.9 Gastro-esophageal reflux disease without esophagitis (principal); K22.8 Other specified diseases of esophagus; K29.50 Unspecified chronic gastritis without bleeding; K44.9 Diaphragmatic hernia without obstruction or gangrene
CPT/HCPCS: 74220

== ENCOUNTER 2021-05-15 06:08 | Inpatient (IN) | payer MEDICARE ==
[2021-05-15] MEDS ORDERED: IPRATROPIUM-ALBUTEROL 3 ML NEB INHALATION STA (06:50)
--- NOTE | 2021-05-15 06:53 | ED ---
General Adult HPI - General Chief complaint: Shortness of Breath Stated complaint: SOB Time Seen by Provider: 05/15/21 06:19 Source: patient, family, RN notes reviewed Mode of arrival: wheelchair - History of Present Illness Initial comments: 58-year-old female with comminuted past medical history including COPD/asthma on 20 mg of prednisone chronically and home O2 as needed, diabetes mellitus, fibromyalgia, GERD, hyperlipidemia, hypertension, presents to the emergency room for a chief complaint of fever. is the one taking for patient as she did ask for him to do so. He reports he came in because this morning he woke up at 3 AM and felt she was very warm. He thought she may have a fever although could not find his thermometer. He gave her 1g of Tylenol at that time. He reports that over the past couple days she has not felt well. She has had some slightly increased shortness of breath, but nothing completely out of the ordinary. He states she frequently gets UTIs and he feels this could be related.Patient has no other complaints at this time including chest pain, abdominal pain, nausea or vomiting, headache, or visual changes. - Related Data Home Medications Medication Instructions Recorded Confirmed Escitalopram [Lexapro] 20 mg PO QAM 01/01/14 04/29/21 Amitriptyline HCl [Elavil] 30 mg PO HS 12/07/14 04/29/21 traZODone HCL 75 mg PO HS 09/10/16 04/29/21 buPROPion XL [Wellbutrin XL] 450 mg PO DAILY 07/24/17 04/29/21 Fluticasone/Salmeterol [Advair Hfa 2 puff INHALATION RT-BID 04/09/19 04/29/21 230-21 Mcg Inhaler] Pregabalin [Lyrica] 100 mg PO TID 04/09/19 04/29/21 Montelukast [Singulair] 10 mg PO HS 08/01/19 04/29/21 Budesonide [Pulmicort] 0.5 mg INHALATION RT-BID 03/31/20 04/29/21 ALPRAZolam [Xanax] 0.5 mg PO TID 07/21/20 04/29/21 Pantoprazole [Protonix] 40 mg PO DAILY 07/21/20 04/29/21 Pravastatin Sodium [Pravachol] 10 mg PO HS 07/21/20 04/29/21 Promethazine 6.25MG/5Ml [Phenergan 6.25 mg PO QID PRN 07/21/20 04/29/21 Syrup] Calcium Carbonate [Calcium] 600 mg PO BID 03/03/21 04/29/21 Denosumab [Prolia] 60 mg SQ Q180D 03/03/21 04/29/21 Docusate [Colace] 100 mg PO BID 03/03/21 04/29/21 Glucagon Emergency Kit 1 mg IM ONCE PRN 03/03/21 04/29/21 Insulin Aspart [NovoLOG Flexpen] 6 units SQ AC-TID 03/03/21 04/29/21 Insulin Glargine,Hum.rec.anlog 10 unit SQ HS 03/03/21 04/29/21 [Lantus Solostar Pen] busPIRone HCL 30 mg PO BID 03/03/21 04/29/21 Previous Rx's Medication Instructions Recorded Acetaminophen Tab [Tylenol] 650 mg PO Q6HR PRN tab 07/27/20 Albuterol Inhaler [Ventolin Hfa 2 puff INHALATION RT-QID PRN #1 07/27/20 Inhaler] puff Cefdinir [Omnicef] 300 mg PO Q12HR #14 capsule 03/05/21 predniSONE 40 mg PO DAILY #0 03/05/21 Allergies Allergy/AdvReac Type Severity Reaction Status Date / Time crisaborole [From Eucrisa] Allergy Rash/Hives Verified 05/15/21 08:40 cefuroxime axetil AdvReac Severe Abdominal Verified 05/15/21 08:40 [From Ceftin] Pain ciprofloxacin HCl AdvReac Severe Abdominal Verified 05/15/21 08:40 [From Cipro] Pain erythromycin base AdvReac Unknown Abdominal Verified 05/15/21 08:40 [Erythromycin Base] Pain sulfamethoxazole AdvReac Unknown Abdominal Verified 05/15/21 08:40 [From Bactrim] Pain trimethoprim [From Bactrim] AdvReac Unknown Abdominal Verified 05/15/21 08:40 Pain indomethacin sodium AdvReac severe Verified 05/15/21 08:40 [From Indocin] Confusion NSAIDS (Non-Steroidal AdvReac Dyspnea Verified 05/15/21 08:40 Anti-Inflamma Penicillins AdvReac Nausea & Verified 05/15/21 08:40 Vomiting Sulfa (Sulfonamide AdvReac Abdominal Verified 05/15/21 08:40 Antibiotics) Pain Review of Systems ROS Statement: Those systems with pertinent positive or pertinent negative responses have been documented in the HPI. ROS Other: All systems not noted in ROS Statement are negative. Past Medical History Past Medical History: Asthma, COPD, Diabetes Mellitus, Eye Disorder, Fibromyalgia, GERD/Reflux, Hyperlipidemia, Hypertension, Musculoskeletal Disorder, Pneumonia, Respiratory Disorder, Skin Disorder Additional Past Medical History / Comment(s): Bronchial asthma, tracheobronchomalacia, common variable immunoglobulin deficiency. Chronic back problems. chronic steroid use, suspected component of adrenal insufficiency due to chronic steroid use. Hiatal hernia. 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 Pneumonia / In ICU in [place] after Back surgery - March 2019. Mycobacterium gordonae soft tissue infection. cataracts, glaucoma, fibromyalgia, chronic pain, compression fracture of the spine. History of Any Multi-Drug Resistant Organisms: MRSA Date of last positivie culture/infection: 2010 MDRO Source:: right hand Past Surgical History: Appendectomy, Back Surgery, Breast Surgery, Cholecystectomy, Tubal Ligation Additional Past Surgical History / Comment(s): MULT BRONCHS, WASHINGS, LAST 04/17/14. EXC [facility] CATARACT. BLEPHAROPLASTY/ R&L BREAST BIOPSIES; PORT A CATH IN LEFT CHEST-CHANGED TO RT CHEST,EXC MYCOBACTERIUM AREAS RT ARM 2011; UPPER TEETH EXTRACTED. RT SALPINGECTOMY/FALLOPIAN TUBE REMOVED, I&D BOIL.Jul [facility] EYE AND MUSCLE SURGERY; - mouth (bone) surgery. Pain pump insertion to left buttocks - October 2016. Colonoscopy 2014. Hiatal hernia surgeries 2014&2016. Back surgery (Decompresssion) - February 2019 Past Anesthesia/Blood Transfusion Reactions: Motion Sickness, Postoperative Nausea & Vomiting (PONV) Past Psychological History: Anxiety, Depression Smoking Status: Former smoker Past Alcohol Use History: None Reported Past Drug Use History: None Reported - Past Family History Mother Family Medical History: Cancer Additional Family Medical History / Comment(s): BREAST CANCER. Father Additional Family Medical History / Comment(s): r/t suicide General Exam General appearance: alert, in no apparent distress Head exam: Present: atraumatic Eye exam: Present: normal appearance, PERRL, EOMI. Absent: scleral icterus, conjunctival injection ENT exam: Present: normal exam, mucous membranes moist Neck exam: Present: normal inspection, full ROM. Absent: tenderness Respiratory exam: Present: wheezes. Absent: normal lung sounds bilaterally, respiratory distress Cardiovascular Exam: Present: regular rate, normal rhythm, normal heart sounds GI/Abdominal exam: Present: soft. Absent: distended, tenderness Course Vital Signs 05/15/21 05/15/21 05/15/21 06:11 06:21 07:01 Temperature 99 F 100.5 F H Pulse Rate 115 H 107 H Respiratory 23 24 24 Rate Blood Pressure 111/71 113/56 O2 Sat by Pulse 87 L 94 L Oximetry 05/15/21 05/15/21 05/15/21 07:43 08:14 08:25 Temperature 98.1 F Pulse Rate 99 98 86 Respiratory 20 Rate Blood Pressure 128/63 O2 Sat by Pulse 92 L Oximetry EKG Findings - EKG Comments: EKG Findings:: Sinus tachycardia, ventricular rate 105, AR interval 146, QTC 446 Medical Decision Making - Medical Decision Making Patient presents with a fever of 100.5 after Tylenol given 3 hours prior to arrival. Patient also requiring increased oxygenation at rest at 3 L. States she only uses 2 L when necessary at home. She does feel more short of breath than normal. The examination did reveal wheezing in the right lung. Laboratory evaluation revealed a leukocytosis as well as some dehydration. Patient was given fluids. Given patient's ALLERGY she was given IV Levaquin as she states she has had this before without issue. Chest x-ray revealed of focal mid lung and left basilar infiltrate correlate for pneumonia. Discussed with patient, they're agreeable with staying. She will be kept on Levaquin and DuoNeb. He is discussed with Dr. Marcano, requests Dr. Kothari be consulted. - Lab Data Result diagrams: 05/15/21 06:54 05/15/21 06:54 Lab Results 05/15/21 05/15/21 05/15/21 Range/Units 06:54 06:54 06:54 WBC 14.3 H (3.8-10.6) k/uL RBC 4.95 (3.80-5.40) m/uL Hgb 11.7 (11.4-16.0) gm/dL Hct 36.7 (34.0-46.0) % MCV 74.2 L D (80.0-100.0) fL MCH 23.6 L (25.0-35.0) pg MCHC 31.8 (31.0-37.0) g/dL RDW 16.6 H (11.5-15.5) % Plt Count 217 (150-450) k/uL MPV 9.4 Neutrophils % 87 % Lymphocytes % 7 % Monocytes % 4 % Eosinophils % 1 % Basophils % 0 % Neutrophils # 12.5 H (1.3-7.7) k/uL Lymphocytes # 1.0 (1.0-4.8) k/uL Monocytes # 0.5 (0-1.0) k/uL Eosinophils # 0.1 (0-0.7) k/uL Basophils # 0.0 (0-0.2) k/uL Manual Slide Review Performed Hypochromasia Slight Anisocytosis Slight Microcytosis Slight Sodium 138 (137-145) mmol/L Potassium 4.6 (3.5-5.1) mmol/L Chloride 103 (98-107) mmol/L Carbon Dioxide 28 (22-30) mmol/L Anion Gap 7 mmol/L BUN 27 H (7-17) mg/dL Creatinine 1.03 (0.52-1.04) mg/dL Est GFR (CKD-EPI)AfAm 65 (>60 ml/min/1.73 sqM) Est GFR (CKD-EPI)NonAf 56 (>60 ml/min/1.73 sqM) Glucose 168 H (74-99) mg/dL Plasma Lactic Acid Geovanni 2.3 H* (0.7-2.0) mmol/L Calcium 9.2 (8.4-10.2) mg/dL Total Bilirubin 0.5 (0.2-1.3) mg/dL AST 51 H (14-36) U/L ALT 40 H (4-34) U/L Alkaline Phosphatase 137 H (38-126) U/L Troponin I (0.000-0.034) ng/mL NT-Pro-B Natriuret Pep pg/mL Total Protein 6.4 (6.3-8.2) g/dL Albumin 3.5 (3.5-5.0) g/dL Urine Color Urine Appearance (Clear) Urine pH (5.0-8.0) Ur Specific [place] (1.001-1.035) Urine Protein (Negative) Urine Glucose (UA) (Negative) Urine Ketones (Negative) Urine Blood (Negative) Urine Nitrite (Negative) Urine Bilirubin (Negative) Urine Urobilinogen (<2.0) mg/dL Ur Leukocyte Esterase (Negative) Urine RBC (0-5) /hpf Urine WBC (0-5) /hpf Ur Squamous Epith Cells (0-4) /hpf Urine Bacteria (None) /hpf Hyaline Casts (0-2) /lpf Urine Mucus (None) /hpf Coronavirus (PCR) (Not Detectd) 05/15/21 05/15/21 05/15/21 Range/Units 06:54 06:54 06:54 WBC (3.8-10.6) k/uL RBC (3.80-5.40) m/uL Hgb (11.4-16.0) gm/dL Hct (34.0-46.0) % MCV (80.0-100.0) fL MCH (25.0-35.0) pg MCHC (31.0-37.0) g/dL RDW (11.5-15.5) % Plt Count (150-450) k/uL MPV Neutrophils % % Lymphocytes % % Monocytes % % Eosinophils % % Basophils % % Neutrophils # (1.3-7.7) k/uL Lymphocytes # (1.0-4.8) k/uL Monocytes # (0-1.0) k/uL Eosinophils # (0-0.7) k/uL Basophils # (0-0.2) k/uL Manual Slide Review Hypochromasia Anisocytosis Microcytosis Sodium (137-145) mmol/L Potassium (3.5-5.1) mmol/L Chloride (98-107) mmol/L Carbon Dioxide (22-30) mmol/L Anion Gap mmol/L BUN (7-17) mg/dL Creatinine (0.52-1.04) mg/dL Est GFR (CKD-EPI)AfAm (>60 ml/min/1.73 sqM) Est GFR (CKD-EPI)NonAf (>60 ml/min/1.73 sqM) Glucose (74-99) mg/dL Plasma Lactic Acid Geovanni (0.7-2.0) mmol/L Calcium (8.4-10.2) mg/dL Total Bilirubin (0.2-1.3) mg/dL AST (14-36) U/L ALT (4-34) U/L Alkaline Phosphatase (38-126) U/L Troponin I <0.012 (0.000-0.034) ng/mL NT-Pro-B Natriuret Pep 269 pg/mL Total Protein (6.3-8.2) g/dL Albumin (3.5-5.0) g/dL Urine Color Yellow Urine Appearance Clear (Clear) Urine pH 5.0 (5.0-8.0) Ur Specific [place] 1.012 (1.001-1.035) Urine Protein Negative (Negative) Urine Glucose (UA) Negative (Negative) Urine Ketones Negative (Negative) Urine Blood Negative (Negative) Urine Nitrite Positive H (Negative) Urine Bilirubin Negative (Negative) Urine Urobilinogen <2.0 (<2.0) mg/dL Ur Leukocyte Esterase Large H (Negative) Urine RBC 1 (0-5) /hpf Urine WBC 9 H (0-5) /hpf Ur Squamous Epith Cells <1 (0-4) /hpf Urine Bacteria Many H (None) /hpf Hyaline Casts 23 H (0-2) /lpf Urine Mucus Occasional H (None) /hpf Coronavirus (PCR) (Not Detectd) 05/15/21 Range/Units 06:54 WBC (3.8-10.6) k/uL RBC (3.80-5.40) m/uL Hgb (11.4-16.0) gm/dL Hct (34.0-46.0) % MCV (80.0-100.0) fL MCH (25.0-35.0) pg MCHC (31.0-37.0) g/dL RDW (11.5-15.5) % Plt Count (150-450) k/uL MPV Neutrophils % % Lymphocytes % % Monocytes % % Eosinophils % % Basophils % % Neutrophils # (1.3-7.7) k/uL Lymphocytes # (1.0-4.8) k/uL Monocytes # (0-1.0) k/uL Eosinophils # (0-0.7) k/uL Basophils # (0-0.2) k/uL Manual Slide Review Hypochromasia Anisocytosis Microcytosis Sodium (137-145) mmol/L Potassium (3.5-5.1) mmol/L Chloride (98-107) mmol/L Carbon Dioxide (22-30) mmol/L Anion Gap mmol/L BUN (7-17) mg/dL Creatinine (0.52-1.04) mg/dL Est GFR (CKD-EPI)AfAm (>60 ml/min/1.73 sqM) Est GFR (CKD-EPI)NonAf (>60 ml/min/1.73 sqM) Glucose (74-99) mg/dL Plasma Lactic Acid Geovanni (0.7-2.0) mmol/L Calcium (8.4-10.2) mg/dL Total Bilirubin (0.2-1.3) mg/dL AST (14-36) U/L ALT (4-34) U/L Alkaline Phosphatase (38-126) U/L Troponin I (0.000-0.034) ng/mL NT-Pro-B Natriuret Pep pg/mL Total Protein (6.3-8.2) g/dL Albumin (3.5-5.0) g/dL Urine Color Urine Appearance (Clear) Urine pH (5.0-8.0) Ur Specific [place] (1.001-1.035) Urine Protein (Negative) Urine Glucose (UA) (Negative) Urine Ketones (Negative) Urine Blood (Negative) Urine Nitrite (Negative) Urine Bilirubin (Negative) Urine Urobilinogen (<2.0) mg/dL Ur Leukocyte Esterase (Negative) Urine RBC (0-5) /hpf Urine WBC (0-5) /hpf Ur Squamous Epith Cells (0-4) /hpf Urine Bacteria (None) /hpf Hyaline Casts (0-2) /lpf Urine Mucus (None) /hpf Coronavirus (PCR) Not Detected (Not Detectd) Disposition Clinical Impression: Pneumonia, Leukocytosis, Dehydration, Lactic acidosis, UTI (urinary tract infection) Disposition: ADMITTED IP TO THIS HOSP Is patient prescribed a controlled substance at d/c from ED?: No Referrals: Ponce Kothari MD [Primary Care Provider] - 1-2 days Time of Disposition: 08:42
[2021-05-15 07:18] LABS: Anisocytosis Slight; Basophils % (A) 0 %; Eosinophils # (A) 0.1 k/uL (0-0.7); Eosinophils % (A) 1 %; HCT 36.7 % (34.0-46.0); HGB 11.7 gm/dL (11.4-16.0); Hypochromasia Slight; Lymphocytes % (A) 7 %; MCH 23.6 pg (25.0-35.0); MCHC 31.8 g/dL (31.0-37.0); Mean Platelet Volume 9.4; Microcytosis Slight; Monocytes # (A) 0.5 k/uL (0-1.0); Monocytes % (A) 4 %; Neutrophils # (A) 12.5 k/uL (1.3-7.7); Neutrophils % (A) 87 %; Platelet Count 217 k/uL (150-450); RBC 4.95 m/uL (3.80-5.40); RDW 16.6 % (11.5-15.5); WBC 14.3 k/uL (3.8-10.6)
[2021-05-15 07:19] LABS: MCV 74.2 fL (80.0-100.0)
[2021-05-15 07:23] LABS: Albumin 3.5 g/dL (3.5-5.0); Calcium 9.2 mg/dL (8.4-10.2); Potassium 4.6 mmol/L (3.5-5.1); Total Bilirubin 0.5 mg/dL (0.2-1.3); Total Protein 6.4 g/dL (6.3-8.2)
--- NOTE | 2021-05-15 07:26 | XR ---
EXAMINATION TYPE: XR chest 2V DATE OF EXAM: 05/15/2021 COMPARISON: 03/03/2021 HISTORY: 66-year-old female shortness of breath, difficulty breathing TECHNIQUE: AP and lateral views FINDINGS: Right anterior chest wall injection port with catheter tip in the right atrium. Heart borderline enla rged. Focal midlung opacities as well as patchy left basilar opacity have increased and are visualize d in both the frontal and lateral views. No pleural effusion. Low lung volumes. Loss of the subacromi al space on the right suggesting chronic full-thickness rotator cuff tear. IMPRESSION: 1. Borderline cardiomegaly and hypoventilatory changes. 2. Focal midlung and left basilar infiltrates. Correlate for pneumonia.
[2021-05-15] MEDS ORDERED: AZITHROMYCIN 500 MG in SODIUM CHLORIDE 0.9% 250 ML IVPB STA (07:55)
[2021-05-15] MEDS ORDERED: cefTRIAXone IN SWFI 1,000 MG/10 ML SYRINGE IVP STA (07:55)
[2021-05-15 08:13] LABS: Appearance,Urine Clear (Clear); Bacteria,Urine Many /hpf; Bilirubin,Urine Negative (Negative); Blood,Urine Negative (Negative); Color,Urine Yellow; Glucose,Urine (UA) Negative (Negative); Hyaline Casts,Urine 23 /lpf (0-2); Ketones,Urine Negative (Negative); Leukocyte Esterase,Urine Large (Negative); Mucus,Urine Occasional /hpf; Nitrite,Urine Positive (Negative); Protein,Urine Negative (Negative); RBC,Urine 1 /hpf (0-5); Specific Gravity,Urine 1.012 (1.001-1.035); Squamous Epithelial Cell,Urine <1 /hpf (0-4); Urobilinogen,Urine <2.0 mg/dL (<2.0); WBC,Urine 9 /hpf (0-5)
[2021-05-15] MEDS ORDERED: SODIUM CHLORIDE 0.9% 1,000 ML IV STA (08:13)
[2021-05-15] MEDS ORDERED: LEVOFLOXACIN 500MG-D5W PMX 500 MG in DEXTROSE/WATER 1 100ML.BAG IVPB STA (08:13)
[2021-05-15 08:39] LABS: INR 0.9 (<1.2); Prothrombin Time 10.1 sec (9.0-12.0)
[2021-05-15] MEDS ORDERED: PNEUMONIA PROTOCOL UTILIZED 1 EACH MISC PO PRN (08:43)
[2021-05-15] MEDS ORDERED: IPRATROPIUM-ALBUTEROL 3 ML NEB INHALATION PRN (08:43)
[2021-05-15] MEDS ORDERED: LEVOFLOXACIN 750MG-D5W PMX 750 MG in DEXTROSE/WATER 1 150ML.BAG IVPB STA ×2 (08:43→08:45)
[2021-05-15] MEDS: IPRATROPIUM-ALBUTEROL 3 ML NEB INHALATION SCH ×3 (11:24→19:33)
[2021-05-15 12:01] LABS: Glucose,Whole Blood 318 mg/dL (75-99)
[2021-05-15] MEDS: INSULIN ASPART (NovoLOG) 100 UNIT/ML VIAL SQ SCH ×3 (12:17→21:40)
[2021-05-15 12:36] VITALS: RESP 18
[2021-05-15] MEDS ORDERED: ALPRAZolam 0.5 MG TAB PO PRN (12:43)
[2021-05-15] MEDS ORDERED: ALPRAZolam 0.25 MG TAB PO PRN (12:43)
[2021-05-15] MEDS ORDERED: ACETAMINOPHEN TAB 325 MG TAB PO PRN (12:43)
[2021-05-15] MEDS ORDERED: HYDROcodone/APAP 7.5-325MG 1 EACH TAB PO PRN (12:43)
[2021-05-15] MEDS ORDERED: PREGABALIN 100 MG CAP PO SCH (16:00)
[2021-05-15 17:07] LABS: Glucose,Whole Blood 267 mg/dL (75-99)
[2021-05-15 17:28] LABS: ABG Base Excess 6.7 mmol/L; ABG HCO3 31 mmol/L (21-25); ABG Oxygen Saturation 97.3 % (94-97); ABG PCO2 44 mmHg (35-45); ABG PH 7.45 (7.35-7.45); ABG PO2 89 mmHg (83-108); ABG TCO2 32 mmol/L (19-24); Allen Test Performed? Yes
[2021-05-15] MEDS ORDERED: INSULIN ASPART (NovoLOG) 100 UNIT/ML VIAL SQ SCH (17:30)
--- NOTE | 2021-05-15 18:44 | CT ---
EXAMINATION TYPE: CT brain wo con DATE OF EXAM: 05/15/2021 COMPARISON: 08/19/2019 HISTORY: lethargic CT DLP: 1149 mGycm Automated exposure control for dose reduction was used. Ventricles have normal size. There is no mass effect nor midline shift. There is no sign of intracran ial hemorrhage. There is some mild hypodensity in the periventricular white matter in both occipital lobes. Calvarium is intact. IMPRESSION: There is some mild white matter changes in the occipital lobes. No acute intracranial abnormality. No change compared to old exam.
[2021-05-15] MEDS: SYMBICORT 160-4.5 MCG INHALER INHALATION SCH (19:33)
--- NOTE | 2021-05-15 19:59 | P.HPIM ---
History of Present Illness H&P Date: 05/15/21 Chief Complaint: Shortness of breath 58-year-old female with comminuted past medical history including COPD/asthma on 20 mg of prednisone chronically and home O2 as needed, diabetes mellitus, fibromyalgia, GERD, hyperlipidemia, hypertension, presents to the emergency room for a chief complaint of fever. is the one taking for patient as she did ask for him to do so. He reports he came in because this morning he woke up at 3 AM and felt she was very warm. He thought she may have a fever although could not find his thermometer. He gave her 1g of Tylenol at that time. He reports that over the past couple days she has not felt well. She has had some slightly increased shortness of breath, but nothing completely out of the ordinary. He states she frequently gets UTIs and he feels this could be related.Patient has no other complaints at this time including chest pain, abdominal pain, nausea or vomiting, headache, or visual changes. In the ED patient had an episode of complete unresponsiveness; vital signs remained stable; stat CT of head was done which was unremarkable; ABGs and ammonia levels were checked which were within normal limit; patient did wake up once 's. Was awake alert and oriented and requested no chest compressions or intubation; this was confirmed with patient's at bedside who also related that patient had verbalized these wishes multiple times since she was intubated for a week due to pneumonia Review of Systems ROS unobtainable: due to mental status Past Medical History Past Medical History: Asthma, COPD, Diabetes Mellitus, Eye Disorder, Fibromyalgia, GERD/Reflux, Hyperlipidemia, Hypertension, Musculoskeletal Disorder, Pneumonia, Respiratory Disorder, Skin Disorder Additional Past Medical History / Comment(s): Bronchial asthma, tracheobronchomalacia, common variable immunoglobulin deficiency. Chronic back problems. chronic steroid use, suspected component of adrenal insufficiency due to chronic steroid use. Hiatal hernia. 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 Pneumonia / In ICU in [place] after Back surgery - March 2019. Mycobacterium gordonae soft tissue infection. cataracts, glaucoma, fibromyalgia, chronic pain, compression fracture of the spine. History of Any Multi-Drug Resistant Organisms: MRSA Date of last positivie culture/infection: 2010 MDRO Source:: right hand Past Surgical History: Appendectomy, Back Surgery, Breast Surgery, Cholecystectomy, Tubal Ligation Additional Past Surgical History / Comment(s): MULT BRONCHS, WASHINGS, LAST 04/17/14. EXC OMA CATARACT. BLEPHAROPLASTY/ R&L BREAST BIOPSIES; PORT A CATH IN LEFT CHEST-CHANGED TO RT CHEST,EXC MYCOBACTERIUM AREAS RT ARM 2011; UPPER TEETH EXTRACTED. RT SALPINGECTOMY/FALLOPIAN TUBE REMOVED, I&D BOIL.Jul [facility] EYE AND MUSCLE SURGERY; - mouth (bone) surgery. Pain pump insertion to left buttocks - October 2016. Colonoscopy 2014. Hiatal hernia surgeries 2014&2015. Back surgery (Decompresssion) - February 2019 Past Anesthesia/Blood Transfusion Reactions: Motion Sickness, Postoperative Nausea & Vomiting (PONV) Past Psychological History: Anxiety, Depression Smoking Status: Former smoker Past Alcohol Use History: None Reported Past Drug Use History: None Reported - Past Family History Mother Family Medical History: Cancer Additional Family Medical History / Comment(s): BREAST CANCER. Father Additional Family Medical History / Comment(s): r/t suicide Medications and Allergies Home Medications Medication Instructions Recorded Confirmed Type Escitalopram [Lexapro] 20 mg PO DAILY 01/01/14 05/15/21 History Amitriptyline HCl [Elavil] 30 mg PO HS 12/07/14 05/15/21 History traZODone HCL 75 mg PO HS 09/10/16 05/15/21 History buPROPion XL [Wellbutrin XL] 450 mg PO DAILY 07/24/17 05/15/21 History Fluticasone/Salmeterol [Advair Hfa 2 puff INHALATION RT-BID 04/09/19 05/15/21 History 230-21 Mcg Inhaler] Pregabalin [Lyrica] 100 mg PO TID 04/09/19 05/15/21 History ALPRAZolam [Xanax] 0.25 mg PO HS PRN 07/21/20 05/15/21 History Pantoprazole [Protonix] 40 mg PO DAILY 07/21/20 05/15/21 History Pravastatin Sodium [Pravachol] 10 mg PO HS 07/21/20 05/15/21 History Promethazine 6.25MG/5Ml [Phenergan 6.25 mg PO DIRECTED PRN 07/21/20 05/15/21 History Syrup] Acetaminophen Tab [Tylenol] 650 mg PO Q6HR PRN tab 07/27/20 05/15/21 Rx Albuterol Inhaler [Ventolin Hfa 2 puff INHALATION RT-QID PRN #1 07/27/20 05/15/21 Rx Inhaler] puff Denosumab [Prolia] 60 mg SQ Q180D 03/03/21 05/15/21 History Glucagon Emergency Kit 1 mg IM ONCE PRN 03/03/21 05/15/21 History Insulin Aspart [NovoLOG Flexpen] 6 units SQ AC-TID 03/03/21 05/15/21 History Insulin Glargine,Hum.rec.anlog 10 unit SQ HS 03/03/21 05/15/21 History [Lantus Solostar Pen] busPIRone HCL 30 mg PO BID 03/03/21 05/15/21 History ALPRAZolam [Xanax] 0.5 mg PO TID PRN 05/15/21 05/15/21 History Furosemide [Lasix] 40 mg PO TID 05/15/21 05/15/21 History HYDROcodone/APAP 7.5-325MG [[place] 1 tab PO Q4H PRN 05/15/21 05/15/21 History 7.5-325] Potassium Chloride [Klor-Con 20] 60 meq PO BID 05/15/21 05/15/21 History Spironolactone [Aldactone] 25 mg PO TID 05/15/21 05/15/21 History predniSONE 20 mg PO DAILY 05/15/21 05/15/21 History Allergies Allergy/AdvReac Type Severity Reaction Status Date / Time crisaborole [From Eucrisa] Allergy Rash/Hives Verified 05/15/21 08:40 cefuroxime axetil AdvReac Severe Abdominal Verified 05/15/21 08:40 [From Ceftin] Pain ciprofloxacin HCl AdvReac Severe Abdominal Verified 05/15/21 08:40 [From Cipro] Pain erythromycin base AdvReac Unknown Abdominal Verified 05/15/21 08:40 [Erythromycin Base] Pain sulfamethoxazole AdvReac Unknown Abdominal Verified 05/15/21 08:40 [From Bactrim] Pain trimethoprim [From Bactrim] AdvReac Unknown Abdominal Verified 05/15/21 08:40 Pain indomethacin sodium AdvReac severe Verified 05/15/21 08:40 [From Indocin] Confusion NSAIDS (Non-Steroidal AdvReac Dyspnea Verified 05/15/21 08:40 Anti-Inflamma Penicillins AdvReac Nausea & Verified 05/15/21 08:40 Vomiting Sulfa (Sulfonamide AdvReac Abdominal Verified 05/15/21 08:40 Antibiotics) Pain Physical Exam Vitals: Vital Signs Temp Pulse Resp BP Pulse Ox 05/15/21 12:00 84 18 124/62 93 L 05/15/21 11:34 89 05/15/21 11:24 89 05/15/21 08:25 86 05/15/21 08:14 98 05/15/21 07:43 98.1 F 99 20 128/63 92 L 05/15/21 07:01 100.5 F H 107 H 24 113/56 94 L 05/15/21 06:21 24 05/15/21 06:11 99 F 115 H 23 111/71 87 L Intake and Output 05/14/21 05/15/21 05/15/21 22:59 06:59 14:59 Other: Weight 56.699 kg General appearance: alert, in no apparent distress Head exam: Present: atraumatic Eye exam: Present: normal appearance, PERRL, EOMI. Absent: scleral icterus, conjunctival injection ENT exam: Present: normal exam, mucous membranes moist Neck exam: Present: normal inspection, full ROM. Absent: tenderness Respiratory exam: Present: wheezes. Absent: normal lung sounds bilaterally, respiratory distress Cardiovascular Exam: Present: regular rate, normal rhythm, normal heart sounds GI/Abdominal exam: Present: soft. Absent: distended, tenderness Results CBC & Chem 7: 05/15/21 06:54 05/15/21 06:54 Labs: Abnormal Lab Results - Last 24 Hours (Table) 05/15/21 05/15/21 05/15/21 Range/Units 06:54 06:54 06:54 WBC 14.3 H (3.8-10.6) k/uL MCV 74.2 L D (80.0-100.0) fL MCH 23.6 L (25.0-35.0) pg RDW 16.6 H (11.5-15.5) % Neutrophils # 12.5 H (1.3-7.7) k/uL APTT (22.0-30.0) sec BUN 27 H (7-17) mg/dL Glucose 168 H (74-99) mg/dL POC Glucose (mg/dL) (75-99) mg/dL Plasma Lactic Acid Geovanni 2.3 H* (0.7-2.0) mmol/L AST 51 H (14-36) U/L ALT 40 H (4-34) U/L Alkaline Phosphatase 137 H (38-126) U/L Urine Nitrite (Negative) Ur Leukocyte Esterase (Negative) Urine WBC (0-5) /hpf Urine Bacteria (None) /hpf Hyaline Casts (0-2) /lpf Urine Mucus (None) /hpf 05/15/21 05/15/21 05/15/21 Range/Units 06:54 08:09 12:00 WBC (3.8-10.6) k/uL MCV (80.0-100.0) fL MCH (25.0-35.0) pg RDW (11.5-15.5) % Neutrophils # (1.3-7.7) k/uL APTT 21.0 L (22.0-30.0) sec BUN (7-17) mg/dL Glucose (74-99) mg/dL POC Glucose (mg/dL) 318 H (75-99) mg/dL Plasma Lactic Acid Geovanni (0.7-2.0) mmol/L AST (14-36) U/L ALT (4-34) U/L Alkaline Phosphatase (38-126) U/L Urine Nitrite Positive H (Negative) Ur Leukocyte Esterase Large H (Negative) Urine WBC 9 H (0-5) /hpf Urine Bacteria Many H (None) /hpf Hyaline Casts 23 H (0-2) /lpf Urine Mucus Occasional H (None) /hpf Assessment and Plan Assessment: 1. Community-acquired pneumonia -Levaquin 750 milligrams IV daily along with azithromycin; DuoNeb nebulizer treatments 4 times a day and when necessary 2. Acute exacerbation COPD; we will start patient on Solu-Medrol 40 mg IV every 8 hours; DuoNeb nebulizer treatments 3. Transaminitis; monitor liver enzymes and make further recommendations 4. UTI; patient has been placed on ceftriaxone for community-acquired pneumonia which will suffice for UTI at this time; further recommendations after urine cultures available 5. Mild renal injury/dehydration; we will start patient on IV fluid hydration with normal saline at rate of 75 mL an hour; monitor renal function and strict YURI's; avoid hypotension and nephrotoxins 6. Diabetes mellitus; continue with home dose of Levemir 10 units subcu daily at bedtime; monitor Accu-Cheks every before meals and at bedtime with insulin sliding scale; patient takes 6 units of NovoLog before each meal 7. Hyperlipidemia; Lipitor 10 mg by mouth daily at bedtime 8. Depression; continue with home antidepressant regimen DVT prophylaxis; SCDs/subcu heparin CODE STATUS; DO NOT RESUSCITATE as confirmed with patient and at bedside
[2021-05-15] MEDS ORDERED: PRAVASTATIN SODIUM 20 MG TAB PO SCH (21:00)
[2021-05-15] MEDS ORDERED: AMITRIPTYLINE HCL 10 MG TAB PO SCH (21:00)
[2021-05-15] MEDS ORDERED: busPIRone HCl 10 MG TAB PO SCH (21:00)
[2021-05-15] MEDS ORDERED: HEPARIN SODIUM,PORCINE/PF 5,000 UNIT/0.5 ML SYRINGE SQ SCH (21:00)
[2021-05-15] MEDS ORDERED: INSULIN DETEMIR (LEVEMIR) 100 UNIT/ML SYR SQ SCH (21:00)
[2021-05-15 21:41] LABS: Glucose,Whole Blood 89 mg/dL (75-99)
[2021-05-16] MEDS ORDERED: methylPREDNISolone SOD SUCCI 40 MG/ML 1 ML VIAL IV SCH
[2021-05-16 06:18] LABS: Glucose,Whole Blood 185 mg/dL (75-99)
[2021-05-16] MEDS: SYMBICORT 160-4.5 MCG INHALER INHALATION SCH (07:44)
[2021-05-16] MEDS: IPRATROPIUM-ALBUTEROL 3 ML NEB INHALATION SCH ×2 (07:44→11:06)
[2021-05-16 08:12] VITALS: BP 117/58; PULSE 85; TEMP 99.1
--- NOTE | 2021-05-16 08:16 | XR ---
EXAMINATION TYPE: XR chest 1V portable DATE OF EXAM: 05/16/2021 Comparison: 05/15/2021 Clinical History: 66-year-old female pneumonia Findings: Heart borderline in size. Leftward patient rotation as differential density over the right hemithorax . There is increasing left basilar and retrocardiac opacity. Patchy changes at the right base have al so increased. Severe degenerative change left glenohumeral joint. Right anterior chest wall injection port with catheter tip in the right atrium. Impression: Significantly increasing left basilar and retrocardiac opacity. There may be an underlying small effu matilda now as well. Patchy infiltrate at the right base has increased as well.
[2021-05-16] MEDS ORDERED: ESCITALOPRAM 20 MG TAB PO SCH (09:00)
[2021-05-16] MEDS ORDERED: PANTOPRAZOLE 40 MG TABLET PO SCH (09:00)
[2021-05-16] MEDS ORDERED: LEVOFLOXACIN 750MG-D5W PMX 750 MG in DEXTROSE/WATER 1 150ML.BAG IVPB SCH (09:00)
[2021-05-16] MEDS ORDERED: predniSONE 20 MG TAB PO SCH (09:00)
[2021-05-16] MEDS ORDERED: buPROPion XL 150 MG TAB.ER.24H PO SCH (09:00)
[2021-05-16 09:19] LABS: African American GFR (CKD) 103.2 (60.0-200.0); Anion Gap 6.7 mmol/L (4.00-12.00); BUN/Creat Ratio 21.43 Ratio (12.00-20.00); Carbon Dioxide 26.3 mmol/L (21.6-31.8); Potassium 4.2 mmol/L (3.5-5.5)
--- NOTE | 2021-05-16 10:03 | P.CNPUL ---
History of Present Illness Consult date: 05/16/21 Requesting physician: Uche Marcano Reason for consult: dyspnea, cough, asthma, COPD, pneumonia, abnormal CXR/CT, other Chief complaint: Shortness of breath, cough, urinary tract complaints. History of present illness: Pulmonary consult dated 05/16/2021. 66-year-old female with a history of COPD/asthma, chronic hypoxemic respiratory failure, diabetes, fibromyalgia, GERD, hypertension, and hyperlipidemia. She presented to the emergency department with complaints of shortness of breath, cough, and fever. Currently, she is resting comfortably in the emergency room. She was placed on Levaquin. She was also on Solu-Medrol. Her urine suggested a urinary tract infection. She's not receiving any IV fluids. She is on 3 L nasal cannula. She states, she would like to be discharged home. She sees my partner as a primary. The patient apparently had a chest x-ray and was thought to have a possible pneumonia involving the left lower lobe, and left midlung area. Currently, she states that she's feeling better. As mentioned above, she would like to be discharged home. We will ask the hospital service to make a decision about that. We do put her back on prednisone 20 mg a day, which is her home dose. Current labs include a white count 14.3, hemoglobin 11.7, hematocrit 36.7, and a platelet count of 217,000. PT, INR, and PTT are normal. Blood gases show pO2 of 89, pCO2 44, and a pH is 7.45. These arterial blood gases consistent with a very mild metabolic alkalosis. Sodium 140, potassium 4.2, chlorides 107, CO2 26, anion gap 7, BUN 15, creatinine 0.7. Urine is positive both for nitrite and leukocyte esterase. There are 9 WBCs, and many bacteria noted. Coronavirus testing is negative. Chest x-ray shows a patchy infiltrate in the left lower lobe. Review of Systems REVIEW OF SYSTEMS: CONSTITUTIONAL: Fever. NEUROLOGIC: [ Negative.] HEENT: [ Negative.] CARDIAC: [Negative.] PULMONARY: Shortness of breath, cough, phlegm production. GI: [Negative.] : Dysuria. RHEUMATOLOGIC: [ Negative.] IMMUNOLOGIC: [ Negative.] ENDOCRINE: [Negative. ] DERMATOLOGIC: [Negative.] Past Medical History Past Medical History: Asthma, COPD, Diabetes Mellitus, Eye Disorder, Fibromyalgia, GERD/Reflux, Hyperlipidemia, Hypertension, Musculoskeletal Disorder, Pneumonia, Respiratory Disorder, Skin Disorder Additional Past Medical History / Comment(s): Bronchial asthma, tracheobron chomalacia, common variable immunoglobulin deficiency. Chronic back problems. chronic steroid use, suspected component of adrenal insufficiency due to chronic steroid use. Hiatal hernia. 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 Pneumonia / In ICU in [place] after Back surgery - March 2019. Mycobacterium gordonae soft tissue infection. cataracts, glaucoma, fibromyalgia, chronic pain, compression fracture of the spine. History of Any Multi-Drug Resistant Organisms: MRSA Date of last positivie culture/infection: 2010 MDRO Source:: right hand Past Surgical History: Appendectomy, Back Surgery, Breast Surgery, Cholecystectomy, Tubal Ligation Additional Past Surgical History / Comment(s): MULT BRONCHS, WASHINGS, LAST 04/17/14. EXC OMA CATARACT. BLEPHAROPLASTY/ R&L BREAST BIOPSIES; PORT A CATH IN LEFT CHEST-CHANGED TO RT CHEST,EXC MYCOBACTERIUM AREAS RT ARM 2011; UPPER TEETH EXTRACTED. RT SALPINGECTOMY/FALLOPIAN TUBE REMOVED, I&D BOIL.Jul [facility] EYE AND MUSCLE SURGERY; - mouth (bone) surgery. Pain pump insertion to left buttocks - October 2016. Colonoscopy 2014. Hiatal hernia surgeries 2014&2015. Back surgery (Decompresssion) - February 2019 Past Anesthesia/Blood Transfusion Reactions: Motion Sickness, Postoperative Nausea & Vomiting (PONV) Past Psychological History: Anxiety, Depression Smoking Status: Former smoker Past Alcohol Use History: None Reported Past Drug Use History: None Reported - Past Family History Mother Family Medical History: Cancer Additional Family Medical History / Comment(s): BREAST CANCER. Father Additional Family Medical History / Comment(s): r/t suicide Medications and Allergies Home Medications Medication Instructions Recorded Confirmed Type Escitalopram [Lexapro] 20 mg PO DAILY 01/01/14 05/15/21 History Amitriptyline HCl [Elavil] 30 mg PO HS 12/07/14 05/15/21 History traZODone HCL 75 mg PO HS 09/10/16 05/15/21 History buPROPion XL [Wellbutrin XL] 450 mg PO DAILY 07/24/17 05/15/21 History Fluticasone/Salmeterol [Advair Hfa 2 puff INHALATION RT-BID 04/09/19 05/15/21 History 230-21 Mcg Inhaler] Pregabalin [Lyrica] 100 mg PO TID 04/09/19 05/15/21 History ALPRAZolam [Xanax] 0.25 mg PO HS PRN 07/21/20 05/15/21 History Pantoprazole [Protonix] 40 mg PO DAILY 07/21/20 05/15/21 History Pravastatin Sodium [Pravachol] 10 mg PO HS 07/21/20 05/15/21 History Promethazine 6.25MG/5Ml [Phenergan 6.25 mg PO DIRECTED PRN 07/21/20 05/15/21 History Syrup] Acetaminophen Tab [Tylenol] 650 mg PO Q6HR PRN tab 07/27/20 05/15/21 Rx Albuterol Inhaler [Ventolin Hfa 2 puff INHALATION RT-QID PRN #1 07/27/20 05/15/21 Rx Inhaler] puff Denosumab [Prolia] 60 mg SQ Q180D 03/03/21 05/15/21 History Glucagon Emergency Kit 1 mg IM ONCE PRN 03/03/21 05/15/21 History Insulin Aspart [NovoLOG Flexpen] 6 units SQ AC-TID 03/03/21 05/15/21 History Insulin Glargine,Hum.rec.anlog 10 unit SQ HS 03/03/21 05/15/21 History [Lantus Solostar Pen] busPIRone HCL 30 mg PO BID 03/03/21 05/15/21 History ALPRAZolam [Xanax] 0.5 mg PO TID PRN 05/15/21 05/15/21 History Furosemide [Lasix] 40 mg PO TID 05/15/21 05/15/21 History HYDROcodone/APAP 7.5-325MG [[place] 1 tab PO Q4H PRN 05/15/21 05/15/21 History 7.5-325] Potassium Chloride [Klor-Con 20] 60 meq PO BID 05/15/21 05/15/21 History Spironolactone [Aldactone] 25 mg PO TID 05/15/21 05/15/21 History predniSONE 20 mg PO DAILY 05/15/21 05/15/21 History Allergies Allergy/AdvReac Type Severity Reaction Status Date / Time crisaborole [From Eucrisa] Allergy Rash/Hives Verified 05/15/21 08:40 cefuroxime axetil AdvReac Severe Abdominal Verified 05/15/21 08:40 [From Ceftin] Pain ciprofloxacin HCl AdvReac Severe Abdominal Verified 05/15/21 08:40 [From Cipro] Pain erythromycin base AdvReac Unknown Abdominal Verified 05/15/21 08:40 [Erythromycin Base] Pain sulfamethoxazole AdvReac Unknown Abdominal Verified 05/15/21 08:40 [From Bactrim] Pain trimethoprim [From Bactrim] AdvReac Unknown Abdominal Verified 05/15/21 08:40 Pain indomethacin sodium AdvReac severe Verified 05/15/21 08:40 [From Indocin] Confusion NSAIDS (Non-Steroidal AdvReac Dyspnea Verified 05/15/21 08:40 Anti-Inflamma Penicillins AdvReac Nausea & Verified 05/15/21 08:40 Vomiting Sulfa (Sulfonamide AdvReac Abdominal Verified 05/15/21 08:40 Antibiotics) Pain Physical Exam Osteopathic Statement: *. No significant issues noted on an osteopathic structural exam other than those noted in the History and Physical/Consult. Vitals: Vital Signs Temp Pulse Resp BP Pulse Ox 05/16/21 08:00 99.1 F 85 18 117/58 96 05/16/21 04:22 99.2 F 96 18 135/59 96 05/16/21 00:45 99.3 F 85 18 123/65 98 05/15/21 20:17 82 18 122/64 95 05/15/21 19:44 80 05/15/21 19:37 80 05/15/21 17:32 97.6 F 05/15/21 17:15 81 18 127/69 99 05/15/21 15:05 75 18 125/79 97 05/15/21 12:00 84 18 124/62 93 L 05/15/21 11:34 89 05/15/21 11:24 89 Intake and Output 05/15/21 05/16/21 05/16/21 22:59 06:59 14:59 Other: # Voids 3 No acute distress, oriented 3. No respiratory distress, use of accessory muscles, or conversational dyspnea. The patient is currently on 3 L nasal cannula, and saturations are 96%. HEENT examination is grossly unremarkable. Neck supple. Full range of motion. No adenopathy thyromegaly or neck vein distention. Cardiovascular examination reveals regular rhythm rate. S1-S2 normal. No S3 or S4. No discernible murmur noted. Heart rate 85 bpm. Heart sounds are distant. Lungs reveal diffuse bilateral coarse rhonchi. No wheezes or crackles. Breath sounds equal. Her cough is consistent with a patient who typically might have tracheobronchomalacia.. Abdomen soft bowel sounds are heard. No masses or tenderness. Extremities are intact. No cyanosis clubbing or edema. Skin is without rash or lesion. Neurologic examination is brief but nonfocal. Results - Laboratory Findings CBC and BMP: 05/15/21 06:54 05/16/21 05:05 ABG ABG pH 7.45 (7.35-7.45) 05/15/21 17:24 ABG pCO2 44 mmHg (35-45) 05/15/21 17:24 ABG pO2 89 mmHg (83-108) 05/15/21 17:24 ABG O2 Saturation 97.3 % (94-97) H 05/15/21 17:24 PT/INR, D-dimer PT 10.1 sec (9.0-12.0) 05/15/21 08:09 INR 0.9 (<1.2) 05/15/21 08:09 Abnormal lab findings: Abnormal Labs 05/15/21 05/15/21 05/15/21 06:54 06:54 06:54 WBC 14.3 H MCV 74.2 L D MCH 23.6 L RDW 16.6 H Neutrophils # 12.5 H APTT ABG HCO3 ABG Total CO2 ABG O2 Saturation BUN 27 H BUN/Creatinine Ratio Glucose 168 H POC Glucose (mg/dL) Plasma Lactic Acid Geovanni 2.3 H* Calcium AST 51 H ALT 40 H Alkaline Phosphatase 137 H Urine Nitrite Ur Leukocyte Esterase Urine WBC Urine Bacteria Hyaline Casts Urine Mucus 05/15/21 05/15/21 05/15/21 06:54 08:09 12:00 WBC MCV MCH RDW Neutrophils # APTT 21.0 L ABG HCO3 ABG Total CO2 ABG O2 Saturation BUN BUN/Creatinine Ratio Glucose POC Glucose (mg/dL) 318 H Plasma Lactic Acid Geovanni Calcium AST ALT Alkaline Phosphatase Urine Nitrite Positive H Ur Leukocyte Esterase Large H Urine WBC 9 H Urine Bacteria Many H Hyaline Casts 23 H Urine Mucus Occasional H 05/15/21 05/15/21 05/16/21 17:06 17:24 05:05 WBC MCV MCH RDW Neutrophils # APTT ABG HCO3 31 H ABG Total CO2 32 H ABG O2 Saturation 97.3 H BUN BUN/Creatinine Ratio 21.43 H Glucose 195 H POC Glucose (mg/dL) 267 H Plasma Lactic Acid Geovanni Calcium 8.0 L AST ALT Alkaline Phosphatase Urine Nitrite Ur Leukocyte Esterase Urine WBC Urine Bacteria Hyaline Casts Urine Mucus 05/16/21 06:16 WBC MCV MCH RDW Neutrophils # APTT ABG HCO3 ABG Total CO2 ABG O2 Saturation BUN BUN/Creatinine Ratio Glucose POC Glucose (mg/dL) 185 H Plasma Lactic Acid Geovanni Calcium AST ALT Alkaline Phosphatase Urine Nitrite Ur Leukocyte Esterase Urine WBC Urine Bacteria Hyaline Casts Urine Mucus - Diagnostic Findings Chest x-ray: image reviewed Assessment and Plan Assessment: Acute exacerbation of COPD/asthma, complicated by purulent tracheobronchitis, and possible bronchopneumonia, left lower lobe. History of diabetes mellitus. History of fibromyalgia. History of gastroesophageal reflux disease. Acute urinary tract infection. History of hyperlipidemia. History of hypertension. History of common variable immunoglobulin deficiency. Tracheobronchomalacia. History of adrenal insufficiency. Multiple other medical problems and comorbidities. Plan: Plan dated 05/16/2021. The patient's placed back on prednisone 20 mg a day. Solu-Medrol was discontinued. Currently, the patient's on Levaquin. He should cover both her lungs and her urinary tract. The patient verbalizes that she would like to go home. That would be fine with us, but will leave that up to the primary service. No additional recommendations are made. Should follow-up with her primary care physician/pulmonary doctor. Additional recommendations and suggestions are forthcoming. Should she stay in the hospital, we will continue to follow make appropriate recommendations. Time with Patient: Greater than 30
[2021-05-16 11:03] LABS: Basophils # (A) 0.01 X 10*3/uL (0.00-0.10); Basophils % (A) 0.1 %; Eosinophils # (A) 0.01 X 10*3/uL (0.04-0.35); Eosinophils % (A) 0.1 %; HCT 29.7 % (37.2-46.3); HGB 8.8 g/dL (12.0-15.0); Lymphocytes # (A) 0.35 X 10*3/uL (0.90-5.00); Lymphocytes % (A) 3.1 %; MCH 22.5 pg (27.0-32.0); MCHC 29.6 g/dL (32.0-37.0); Mean Platelet Volume 11.4 fL (9.5-12.2); Monocytes # (A) 0.15 X 10*3/uL (0.20-1.00); Monocytes % (A) 1.3 %; Neutrophils # (A) 10.71 X 10*3/uL (1.80-7.70); Neutrophils % (A) 94.9 %; Platelet Count 153 X 10*3/uL (140-440); RBC 3.91 X 10*6/uL (4.10-5.20); WBC 11.29 X 10*3/uL (4.50-10.00)
--- NOTE | 2021-05-16 21:46 | P.DS ---
Providers Date of admission: 05/15/21 08:45 Attending physician: Uche Marcano MD Consults: 05/15/21 08:43 Consult Physician Routine Consulting Provider: Ponce Kothari Consult Reason/Comments: SOB, PNA Do you want consulting provider notified?: Yes Primary care physician: Ponce Kothari - Discharge Diagnosis(es) (1) Lactic acidosis Status: Acute (2) Leukocytosis Status: Acute (3) Pneumonia Status: Acute (4) UTI (urinary tract infection) Status: Acute Hospital Course: Final Diagnosis Community Acquired Pneumonia; Covid negative, most likely gram positive Acute Exacerbation of COPD s/t pneumonia Transaminitis; monitor enzymes UTI - urine culture pending - asymptomatic bacteruria Mild renal injury/ dehydration s/t infection Diabetes mellitus with hyperglycemia exacerbated by steroids hyperlipidemia Depression Discharge Disposition Patient is discharged home from the while holding for a bed. Her caregiver at the bedside is in agreeance with plan. Pt wears 3L NC at home, she is maintaining oxygen saturation at 96%. Pulmonary evaluated the patient and recommendations for oral steroids and a course of levaquin on DC. 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 Hospital Course This is a pleasant 66 year old female who was evaluated in the for c/o shortness of breath, fever, and cough without sputup production at home. She lives with her spouse, who is also her primary caregiver. Pt has a history of COPD/asthma, diabetes type 2, GERD, hypertension, hyperlipidemia, as well as chronic hypoxic respiratory failure. Initial chest xray revealed focal midling and left basilar infiltrates; correlate for pneumonia. Pt was started on IV Levaquin, which was transitioned to a course of oral levaquin on discharge. Patient also had a brain CT which was negative for an acute intracranial abnormality; with mild white matter changes in the occipital lobes. Labs reviewed revealed a WBC of 11.29, hgb of 8.8, Lactic acid of 2.3, AST/ALT 51 and 40 respectively, Troponin was negative, and BNP 269. Patient was fluid resuscitated and repeat lactic normalized at 1.2. Patient was negative for coronavirus. Urinalysis revealed positive nitrates, leukocytes, and many bacteria - culture is pending, however antibiotics will cover for a UTI as well. Patient is currently denying any chest pain, or palpitations. She reports cough, and mild exertional dyspnea. Pt denies any dysuria, urgency, frequency. Patient was admitted for CAP as well as UTI. Patient was started on IV steroids, however, was transitioned to oral. Vital signs have been stable, patient has been afebrile in the last 24 hours. BP-117/58; HR - normal sinus rhythm 85, 96% on 2L NC. Patient will have a repeat CBC to monitor for resolution of leukocytosis. Patient and caregiver are agreeing with plan to discharge on oral antibiotics and f/u in the office. 05/16/2021 Patient was evaluated at the bedside in the [facility]. She is denying chest pain, palpitations. She reports cough, and mild SOB with exertion. Pt is maintaining oxygenation saturation on 2-3NC, which is consistant to what she wears at home. On assessment, S1 and S2 are auscultated, mild crackles noted to the left lung base posteriorly with some scattered wheezes. Patient will continue on oral steriods, oral antbiotics, and all other home medications. Patient will f/u in the office with primary for a repeat CBC in 2 days. Patient is instructed to return to the [facility] if her symptoms worsen. Please see medication reconciliation for a list of current medications. Thank you for allowing us to participate in the care of this patient. Patient Condition at Discharge: Fair Plan - Discharge Summary New Discharge Prescriptions: New levoFLOXacin 750 mg PO DAILY 7 Days #7 tab Continue Escitalopram [Lexapro] 20 mg PO DAILY Amitriptyline HCl [Elavil] 30 mg PO HS traZODone HCL 75 mg PO HS buPROPion XL [Wellbutrin XL] 450 mg PO DAILY Pregabalin [Lyrica] 100 mg PO TID Fluticasone/Salmeterol [Advair Hfa 230-21 Mcg Inhaler] 2 puff INHALATION RT- BID Pravastatin Sodium [Pravachol] 10 mg PO HS Pantoprazole [Protonix] 40 mg PO DAILY ALPRAZolam [Xanax] 0.25 mg PO HS PRN PRN Reason: Anxiety Promethazine 6.25MG/5Ml [Phenergan Syrup] 6.25 mg PO DIRECTED PRN PRN Reason: Cough Acetaminophen Tab [Tylenol] 650 mg PO Q6HR PRN tab PRN Reason: Mild Pain Or Fever > 100.5 Albuterol Inhaler [Ventolin Hfa Inhaler] 2 puff INHALATION RT-QID PRN #1 puff PRN Reason: Shortness Of Breath busPIRone HCL 30 mg PO BID Insulin Aspart [NovoLOG Flexpen] 6 units SQ AC-TID Denosumab [Prolia] 60 mg SQ Q180D HYDROcodone/APAP 7.5-325MG [Omena 7.5-325] 1 tab PO Q4H PRN PRN Reason: Pain Potassium Chloride [Klor-Con 20] 60 meq PO BID Glucagon Emergency Kit 1 mg IM ONCE PRN PRN Reason: Blood Sugar - Low Insulin Glargine,Hum.rec.anlog [Lantus Solostar Pen] 10 unit SQ HS Furosemide [Lasix] 40 mg PO TID Spironolactone [Aldactone] 25 mg PO TID predniSONE 20 mg PO DAILY ALPRAZolam [Xanax] 0.5 mg PO TID PRN PRN Reason: Anxiety Discharge Medication List Escitalopram [Lexapro] 20 mg PO DAILY 01/01/14 [History] Amitriptyline HCl [Elavil] 30 mg PO HS 12/07/14 [History] traZODone HCL 75 mg PO HS 09/10/16 [History] buPROPion XL [Wellbutrin XL] 450 mg PO DAILY 07/24/17 [History] Fluticasone/Salmeterol [Advair Hfa 230-21 Mcg Inhaler] 2 puff INHALATION RT-BID 04/09/19 [History] Pregabalin [Lyrica] 100 mg PO TID 04/09/19 [History] ALPRAZolam [Xanax] 0.25 mg PO HS PRN 07/21/20 [History] Pantoprazole [Protonix] 40 mg PO DAILY 07/21/20 [History] Pravastatin Sodium [Pravachol] 10 mg PO HS 07/21/20 [History] Promethazine 6.25MG/5Ml [Phenergan Syrup] 6.25 mg PO DIRECTED PRN 07/21/20 [History] Acetaminophen Tab [Tylenol] 650 mg PO Q6HR PRN tab 07/27/20 [Rx] Albuterol Inhaler [Ventolin Hfa Inhaler] 2 puff INHALATION RT-QID PRN #1 puff 07/27/20 [Rx] Denosumab [Prolia] 60 mg SQ Q180D 03/03/21 [History] Glucagon Emergency Kit 1 mg IM ONCE PRN 03/03/21 [History] Insulin Aspart [NovoLOG Flexpen] 6 units SQ AC-TID 03/03/21 [History] Insulin Glargine,Hum.rec.anlog [Lantus Solostar Pen] 10 unit SQ HS 03/03/21 [History] busPIRone HCL 30 mg PO BID 03/03/21 [History] ALPRAZolam [Xanax] 0.5 mg PO TID PRN 05/15/21 [History] Furosemide [Lasix] 40 mg PO TID 05/15/21 [History] HYDROcodone/APAP 7.5-325MG [Omena 7.5-325] 1 tab PO Q4H PRN 05/15/21 [History] Potassium Chloride [Klor-Con 20] 60 meq PO BID 05/15/21 [History] Spironolactone [Aldactone] 25 mg PO TID 05/15/21 [History] predniSONE 20 mg PO DAILY 05/15/21 [History] levoFLOXacin 750 mg PO DAILY 7 Days #7 tab 05/16/21 [Rx] Follow up Appointment(s)/Referral(s): Ponce Kothari MD [Primary Care Provider] - 1-2 days Ambulatory/Diagnostic Orders: Complete Blood Count w/diff [LAB.AMB] Time Frame: 2 Days, Location: None Selected Discharge Disposition: HOME SELF-CARE
== END 2021-05-16 13:29 | disposition home or self-care (01) | DRG 194 ==
LOC: EC 06:08 → 4SSUR 08:45
PROVIDERS: ADMIT Internal Medicine; ATTEND Internal Medicine
DX: J18.0 Bronchopneumonia, unspecified organism (principal); E27.40 Unspecified adrenocortical insufficiency; E87.4 Mixed disorder of acid-base balance; Z16.24 Resistance to multiple antibiotics; J44.1 Chronic obstructive pulmonary disease with (acute) exacerbation; N39.0 Urinary tract infection, site not specified; J96.11 Chronic respiratory failure with hypoxia; E87.2 Acidosis; J45.901 Unspecified asthma with (acute) exacerbation; N17.9 Acute kidney failure, unspecified; E11.65 Type 2 diabetes mellitus with hyperglycemia; E78.5 Hyperlipidemia, unspecified; E86.0 Dehydration; F32.9 Major depressive disorder, single episode, unspecified; F41.9 Anxiety disorder, unspecified; I10 Essential (primary) hypertension; G89.29 Other chronic pain; K21.9 Gastro-esophageal reflux disease without esophagitis; K44.9 Diaphragmatic hernia without obstruction or gangrene; R74.01 Elevation of levels of liver transaminase levels; H26.9 Unspecified cataract; Z20.822 Contact with and (suspected) exposure to COVID-19; Z66 Do not resuscitate; Z79.51 Long term (current) use of inhaled steroids; Z79.899 Other long term (current) drug therapy; Z80.3 Family history of malignant neoplasm of breast; Z87.891 Personal history of nicotine dependence; Z79.4 Long term (current) use of insulin; M79.7 Fibromyalgia; T38.0X5A Adverse effect of glucocorticoids and synthetic analogues, initial encounter; J39.8 Other specified diseases of upper respiratory tract
CPT/HCPCS: 36415; 36600; 70450; 71045; 71046; 80048; 80053; 81001; 82140; 82805; 83605; 83880; 84484; 85025; 85610; 85730; 87040; 87077; 87086; 87186; 87635; 93005; 94640; 96361; 96365; 96372; 96375; 99285

== ENCOUNTER 2021-07-02 12:47 | Inpatient (IN) | payer MEDICARE ==
[2021-07-02 12:57] LABS: Glucose,Whole Blood 197 mg/dL (75-99)
[2021-07-02] MEDS ORDERED: SODIUM CHLORIDE 0.9% 500 ML 500 ML IV STA (13:05)
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
[2021-07-02 13:51] LABS: Appearance,Urine Clear (Clear); Bilirubin,Urine Negative (Negative); Blood,Urine Negative (Negative); Color,Urine Yellow; Glucose,Urine (UA) Negative (Negative); Ketones,Urine Negative (Negative); Leukocyte Esterase,Urine Negative (Negative); Nitrite,Urine Negative (Negative); PH, Urine 6.5 (5.0-8.0); Protein,Urine Negative (Negative); Specific Gravity,Urine 1.012 (1.001-1.035); Urobilinogen,Urine <2.0 mg/dL (<2.0)
[2021-07-02 14:08] LABS: Amphetamine Screen,Urine Not Detected (NotDetected); Barbiturate Screen,Urine Not Detected (NotDetected); Benzodiazepines Screen,Urine Detected (NotDetected); Cocaine Screen,Urine Not Detected (NotDetected); Methadone Screen, Urine Not Detected (NotDetected); Opiate Screen,Urine Detected (NotDetected); Oxycodone Screen, Urine Not Detected (NotDetected); Phencyclidine Screen,Urine Not Detected (NotDetected); Tricyclic Antidepressant,Urine Detected (NotDetected); Urn Cannabinoid Scrn Not Detected (NotDetected)
--- NOTE | 2021-07-02 14:28 | XR ---
EXAMINATION TYPE: XR chest 1V portable DATE OF EXAM: 07/02/2021 COMPARISON: 05/16/2021 HISTORY: Weakness TECHNIQUE: Single view FINDINGS: There is pulmonary interstitial and airspace edema. There is right central venous catheter with tip in the right atrium. There are chest leads. There is infiltrate left lower lobe. There is probably bilateral pleural effusion. Upper IMPRESSION: Congestive heart failure with left lower lobe infiltrate and atelectasis. No change.
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
[2021-07-02 15:56] LABS: Anisocytosis Slight; Basophils % (A) 0 %; Eosinophils % (A) 0 %; HCT 31.1 % (34.0-46.0); Hypochromasia Marked; Lymphocytes # (A) 0.5 k/uL (1.0-4.8); Lymphocytes % (A) 3 %; MCH 21.5 pg (25.0-35.0); MCHC 29.6 g/dL (31.0-37.0); Mean Platelet Volume 8.1; Microcytosis Moderate; Monocytes # (A) 0.4 k/uL (0-1.0); Monocytes % (A) 2 %; Neutrophils # (A) 15.8 k/uL (1.3-7.7); Neutrophils % (A) 93 %; Platelet Count 209 k/uL (150-450); Poikilocytosis Slight; RBC 4.27 m/uL (3.80-5.40); RDW 16.5 % (11.5-15.5)
[2021-07-02 16:04] LABS: Lactic Acid, Venous 0.7 mmol/L (0.7-2.0)
[2021-07-02 16:05] LABS: ALT 34 U/L (4-34); AST 39 U/L (14-36); African American GFR (CKD) 49 (>60 ml/min/1.73 sqM); Alcohol <10 mg/dL; Alkaline Phosphatase 80 U/L (38-126); Anion Gap 5 mmol/L; Blood Urea Nitrogen 39 mg/dL (7-17); Calcium 8.7 mg/dL (8.4-10.2); Carbon Dioxide 28 mmol/L (22-30); Chloride 105 mmol/L (98-107); Glucose 182 mg/dL (74-99); Non-African American GFR(CKD) 42 (>60 ml/min/1.73 sqM); Potassium 5.6 mmol/L (3.5-5.1); Sodium 138 mmol/L (137-145); Total Bilirubin 0.2 mg/dL (0.2-1.3); Total Protein 5.6 g/dL (6.3-8.2)
[2021-07-02 16:14] LABS: HGB 9.2 gm/dL (11.4-16.0); MCV 72.8 fL (80.0-100.0)
[2021-07-02 16:50] LABS: INR 0.9 (<1.2); Prothrombin Time 10.2 sec (9.0-12.0)
[2021-07-02] MEDS ORDERED: LEVOFLOXACIN 750MG-D5W PMX 750 MG in DEXTROSE/WATER 1 150ML.BAG IVPB STA (17:01)
[2021-07-02] MEDS ORDERED: NALOXONE 0.4 MG/ML 1 ML VIAL IV PRN (18:27)
--- NOTE | 2021-07-02 19:30 | NM ---
EXAMINATION TYPE: NM pul perfusion DATE OF EXAM: 07/02/2021 COMPARISON: NONE HISTORY: Chest pain Following administration of 5.1 mCi Tc 99m MAA. Images obtained post injection. FINDINGS: There is fairly uniform perfusion of the right lung. There are small subsegmental posterior defect in the superior segment right lower lobe. There is decreased perfusion of large area of the left lower lobe. This corresponds to infiltrate and atelectasis in the left lower lobe on the chest x-ray today. IMPRESSION: The perfusion abnormalities appear the same or smaller than the chest x-ray abnormalities. Overall th ere is a low to intermediate probability of pulmonary embolism.
[2021-07-02] MEDS ORDERED: HEPARIN SODIUM 1,000 UN/ML (10ML VL) IV PRN (20:01)
[2021-07-02] MEDS ORDERED: HEPARIN SODIUM 1,000 UN/ML (10ML VL) IV ONE (20:01)
[2021-07-02] MEDS ORDERED: HEPARIN SOD,PORK IN 0.45% NACL 25,000 UNIT in 0.45% NACL 1 250ML.BAG IV SCH (20:15)
[2021-07-02] MEDS: SODIUM CHLORIDE 0.9% 1,000 ML IV SCH (20:51)
[2021-07-03] MEDS: SODIUM CHLORIDE 0.9% 1,000 ML IV SCH ×3 (05:22→17:31)
[2021-07-03] MEDS: INSULIN ASPART (NovoLOG) 100 UNIT/ML VIAL SQ SCH ×6 (05:54→21:26)
[2021-07-03 06:06] LABS: Glucose,Whole Blood 82 mg/dL (75-99)
[2021-07-03] MEDS: IPRATROPIUM-ALBUTEROL 3 ML NEB INHALATION SCH ×3 (11:08→20:40)
[2021-07-03] MEDS ORDERED: ALBUTEROL HFA INHALER INHALATION PRN (11:24)
[2021-07-03] MEDS ORDERED: IPRATROPIUM-ALBUTEROL 3 ML NEB INHALATION PRN (11:24)
[2021-07-03] MEDS ORDERED: ARTIFICIAL TEARS-HYPROMELLOSE DROPS 15 ML BTL BOTH EYES PRN (11:33)
[2021-07-03 11:34] LABS: Glucose,Whole Blood 119 mg/dL (75-99)
[2021-07-03] MEDS ORDERED: LEVOFLOXACIN 750MG-D5W PMX 750 MG in DEXTROSE/WATER 1 150ML.BAG IVPB SCH (12:00)
[2021-07-03] MEDS ORDERED: IPRATROPIUM-ALBUTEROL 3 ML NEB INHALATION SCH (12:00)
[2021-07-03] MEDS: predniSONE 20 MG TAB PO SCH (12:47)
[2021-07-03] MEDS: ACETAMINOPHEN TAB 325 MG TAB PO PRN (13:09)
--- NOTE | 2021-07-03 15:12 | P.CNPUL ---
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 Patient has been increasingly more generally debilitated, she has been lethargic, she has had recent history of urinary tract infections causing encephalopathy. She is currently more awake and alert, she is oriented 3. She follows with Dr. Kothari in the pulmonary clinic, she was recently seen in the office on 06/21/2021. COVID-19 infection was also thought to have affected her mentation and overall functional level. Patient has been more forgetful, confused, weak and has had some occasional stuttering. Patient has a history of severe persistent bronchial asthma, she is on home oxygen, she is on a combination of Advair, Ventolin, and nebulized ipratropium at home, most recently she has developed some oral thrush and her Advair was placed on hold. She was also referred to Dr. Almeida an outpatient basis for ongoing fatigue, weakness, and confusion. MRI of the brain that was completing outpatient basis was negative. Chest x-ray was completing on admission showing pulmonary interstitial and airspace edema, and infiltrate in the left lower lobe, and probable bilateral pleural effusions. Patient reports no fever or chills, reports slight chest congestion, but no chest discomfort, no hemoptysis. Her white count is elevated at 17 on admission, hemoglobin is 9.2, neutrophils are 50.8, lymphocytes 0.5, d-dimer was 1.59, sodium was 138, potassium is 5.6, chloride was 105, CO2 was 28, BUN is 39, creatinine was 1.3, with evidence of acute kidney injury, lactic acid was normal at 0.7, troponin is less than 0.012, ammonia level was less than 9, proBNP was normal at 96, pro calcitonin level was elevated at 0.41, urinalysis showed no evidence of infection, urine drug screen showed opiates, tricyclic antidepressants, and benzodiazepines, serum alcohol level was less than 10, COVID-19 PCR was ne gative. Patient was started on Levaquin for empiric antibiotic coverage, breathing treatments, she was hydrated with IV fluids. Blood cultures have been sent. Today's exam she is much more awake and alert, she is on heparin infusion for elevated d-dimer, and VQ scan showing low to intermediate probability of pulmonary embolism. CT of the brain showed mild atrophy, no acute abnormality. CT scan of the facial bones showed no fracture. This was completed related to bruising on her face related to patient hitting her face on the dashboard when she was lethargic and confused. Review of Systems All systems: negative Constitutional: Reports lethargy, Reports malaise, Reports weakness, Denies chills, Denies fever Eyes: denies blurred vision, denies pain Ears, nose, mouth and throat: Denies headache, Denies sore throat Cardiovascular: Denies chest pain, Denies shortness of breath Respiratory: Reports dyspnea, Denies cough Gastrointestinal: Denies abdominal pain, Denies diarrhea, Denies nausea, Denies vomiting Genitourinary: Denies dysuria, Denies hematuria Musculoskeletal: Denies myalgias Integumentary: Denies pruritus, Denies rash Neurological: Reports change in mentation, Reports weakness, Denies numbness Psychiatric: Denies anxiety, Denies depression Endocrine: Denies fatigue, Denies weight change Past Medical History Past Medical History: Asthma, COPD, Diabetes Mellitus, Eye Disorder, Fibromyal edilberto, GERD/Reflux, Hyperlipidemia, Hypertension, Musculoskeletal Disorder, Pneumonia, Respiratory Disorder, Skin Disorder Additional Past Medical History / Comment(s): Bronchial asthma, tracheobronchomalacia, common variable immunoglobulin deficiency. Chronic back problems. chronic steroid use, suspected component of adrenal insufficiency due to chronic steroid use. Hiatal hernia. 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 Pneumonia / In ICU in [place] after Back surgery - March 2019. Mycobacterium gordonae soft tissue infection. cataracts, glaucoma, fibromyal edilberto, chronic pain, compression fracture of the spine. History of Any Multi-Drug Resistant Organisms: MRSA Date of last positivie culture/infection: 2010 MDRO Source:: right hand Past Surgical History: Appendectomy, Back Surgery, Breast Surgery, Cholecystectomy, Tubal Ligation Additional Past Surgical History / Comment(s): MULT BRONCHS, WASHINGS, LAST 04/17/14. EXC [facility] CATARACT. BLEPHAROPLASTY/ R&L BREAST BIOPSIES; PORT A CATH IN LEFT CHEST-CHANGED TO RT CHEST,EXC MYCOBACTERIUM AREAS RT ARM 2011; UPPER TEETH EXTRACTED. RT SALPINGECTOMY/FALLOPIAN TUBE REMOVED, I&D BOIL.Jul [facility]YE [facility] MUSCLE SURGERY; - mouth (bone) surgery. Pain pump insertion to left buttocks - October 2016. Colonoscopy 2014. Hiatal hernia surgeries 2014&2015. Back surgery (Decompresssion) - February 2019 Past Anesthesia/Blood Transfusion Reactions: Motion Sickness, Postoperative Nausea & Vomiting (PONV) Past Psychological History: Anxiety, Depression Additional Psychological History / Comment(s): . Lives in the family home with her . Not employed outside of the home. Lifelong nonsmoker. No significant history of alcohol use. No history of recreational drug use. No international travels. There are pet dogs in the home. There are still children in the home that they are responsible for. Smoking Status: Never smoker Past Alcohol Use History: None Reported Past Drug Use History: None Reported - Past Family History Mother Family Medical History: Cancer Additional Family Medical History / Comment(s): BREAST CANCER. Father Additional Family Medical History / Comment(s): r/t suicide Medications and Allergies Home Medications Medication Instructions Recorded Confirmed Type Escitalopram [Lexapro] 20 mg PO DAILY 01/01/14 07/02/21 History Amitriptyline HCl [Elavil] 30 mg PO HS 12/07/14 07/02/21 History traZODone HCL 75 mg PO HS 09/10/16 07/02/21 History buPROPion XL [Wellbutrin XL] 450 mg PO DAILY 07/24/17 07/02/21 History Fluticasone/Salmeterol [Advair Hfa 2 puff INHALATION RT-BID 04/09/19 07/02/21 History 230-21 Mcg Inhaler] Pregabalin [Lyrica] 100 mg PO TID 04/09/19 07/02/21 History ALPRAZolam [Xanax] 0.25 mg PO HS PRN 07/21/20 07/02/21 History Pantoprazole [Protonix] 40 mg PO DAILY 07/21/20 07/02/21 History Pravastatin Sodium [Pravachol] 10 mg PO HS 07/21/20 07/02/21 History Promethazine 6.25MG/5Ml [Phenergan 6.25 mg PO DIRECTED PRN 07/21/20 07/02/21 History Syrup] Acetaminophen Tab [Tylenol] 650 mg PO Q6HR PRN tab 07/27/20 07/02/21 Rx Albuterol Inhaler [Ventolin Hfa 2 puff INHALATION RT-QID PRN #1 07/27/20 07/02/21 Rx Inhaler] puff Denosumab [Prolia] 60 mg SQ Q180D 03/03/21 07/02/21 History Glucagon Emergency Kit 1 mg IM ONCE PRN 03/03/21 07/02/21 History Insulin Aspart [NovoLOG Flexpen] 6 units SQ AC-TID 03/03/21 07/02/21 History Insulin Glargine,Hum.rec.anlog 10 unit SQ HS 03/03/21 07/02/21 History [Lantus Solostar Pen] busPIRone HCL 30 mg PO BID 03/03/21 07/02/21 History ALPRAZolam [Xanax] 0.5 mg PO TID PRN 05/15/21 07/02/21 History Furosemide [Lasix] 40 mg PO TID 05/15/21 07/02/21 History HYDROcodone/APAP 7.5-325MG [Gulliver 1 tab PO Q4H PRN 05/15/21 07/02/21 History 7.5-325] Potassium Chloride [Klor-Con 20] 60 meq PO BID 05/15/21 07/02/21 History Spironolactone [Aldactone] 25 mg PO TID 05/15/21 07/02/21 History predniSONE 20 mg PO DAILY 05/15/21 07/02/21 History Allergies Allergy/AdvReac Type Severity Reaction Status Date / Time crisaborole [From Eucrisa] Allergy Rash/Hives Verified 07/02/21 13:57 cefuroxime axetil AdvReac Severe Abdominal Verified 07/02/21 13:57 [From Ceftin] Pain ciprofloxacin HCl AdvReac Severe Abdominal Verified 07/02/21 13:57 [From Cipro] Pain erythromycin base AdvReac Unknown Abdominal Verified 07/02/21 13:57 [Erythromycin Base] Pain sulfamethoxazole AdvReac Unknown Abdominal Verified 07/02/21 13:57 [From Bactrim] Pain trimethoprim [From Bactrim] AdvReac Unknown Abdominal Verified 07/02/21 13:57 Pain indomethacin sodium AdvReac severe Verified 07/02/21 13:57 [From Indocin] Confusion NSAIDS (Non-Steroidal AdvReac Dyspnea Verified 07/02/21 13:57 Anti-Inflamma Penicillins AdvReac Nausea & Verified 07/02/21 13:57 Vomiting Sulfa (Sulfonamide AdvReac Abdominal Verified 07/02/21 13:57 Antibiotics) Pain Physical Exam Vitals: Vital Signs Temp Pulse Pulse Resp BP BP Pulse Ox 07/03/21 12:00 98.0 F 76 20 135/68 94 L 07/03/21 11:24 84 07/03/21 11:08 80 07/03/21 08:00 97.9 F 72 20 137/64 94 L 07/03/21 05:24 98 F 82 20 144/75 96 07/03/21 04:00 97.9 F 79 20 125/60 95 07/03/21 02:00 18 07/03/21 00:09 18 07/02/21 23:19 97.6 F 79 18 115/85 95 07/02/21 20:30 97.8 F 76 18 109/58 96 07/02/21 19:30 75 18 121/62 97 07/02/21 17:00 72 17 136/62 97 07/02/21 16:00 68 18 96/56 96 Intake and Output 07/02/21 07/03/21 07/03/21 23:59 06:59 14:59 Intake Total 480 Output Total Balance 480 Intake: Intake, IV Titration Amount Heparin Sod,Pork in 0.45% NaCl 25,000 unit In 0.45 % NaCl 1 250ml.bag @ 18 UNITS/KG/HR 9.798 mls/hr IV .Q24H [facility] Rx#: [id number] Oral 480 Output: Urine Other: Voiding Method External Catheter Weight GENERAL EXAM: Alert, very pleasant, 58-year-old white female, oriented 3, on 2 L of oxygen with pulse ox of 94% with diffuse bruising of her face, bridge of the nose, cheeks, and forehead from hitting her face on the dashboard comfortable in no apparent distress. HEAD: Normocephalic/atraumatic. Diffuse bruising on the face EYES: Normal reaction of pupils, equal size. Conjunctiva pink, sclera white. NOSE: Clear with pink turbinates. THROAT: No erythema or exudates. NECK: No masses, no JVD, no thyroid enlargement, no adenopathy. CHEST: No chest wall deformity. Symmetrical expansion. LUNGS: Equal air entry with no crackles, wheeze, rhonchi or dullness. CVS: Regular rate and rhythm, normal S1 and S2, no gallops, no murmurs, no rubs ABDOMEN: Soft, nontender. No hepatosplenomegaly, normal bowel sounds, no guarding or rigidity. EXTREMITIES: No clubbing, no edema, no cyanosis, 2+ pulses and upper and lower extremities. MUSCULOSKELETAL: Muscle strength and tone normal. SPINE: No scoliosis or deformity SKIN: No rashes CENTRAL NERVOUS SYSTEM: Alert and oriented -3. No focal deficits, tone is normal in all 4 extremities. PSYCHIATRIC: Alert and oriented -3. Appropriate affect. Intact judgment and insight. Results - Laboratory Findings CBC and BMP: 07/02/21 15:51 07/02/21 15:43 PT/INR, D-dimer PT 10.2 sec (9.0-12.0) 07/02/21 15:43 INR 0.9 (<1.2) 07/02/21 15:43 D-Dimer 1.59 mg/L FEU (<0.60) H 07/02/21 15:43 Abnormal lab findings: Abnormal Labs 07/02/21 07/02/21 07/02/21 12:55 13:19 15:43 WBC Hgb Hct MCV MCH MCHC RDW Neutrophils # Lymphocytes # APTT D-Dimer Potassium 5.6 H BUN 39 H Creatinine 1.30 H Glucose 182 H POC Glucose (mg/dL) 197 H Magnesium 3.0 H AST 39 H Total Protein 5.6 L Albumin 3.0 L Procalcitonin Urine Opiates Screen Detected H U Tricyclic Antidepress Detected H U Benzodiazepines Scrn Detected H 07/02/21 07/02/21 07/02/21 15:43 15:43 15:51 WBC 17.0 H Hgb 9.2 L D Hct 31.1 L MCV 72.8 L D MCH 21.5 L MCHC 29.6 L RDW 16.5 H Neutrophils # 15.8 H Lymphocytes # 0.5 L APTT D-Dimer 1.59 H Potassium BUN Creatinine Glucose POC Glucose (mg/dL) Magnesium AST Total Protein Albumin Procalcitonin 0.41 H Urine Opiates Screen U Tricyclic Antidepress U Benzodiazepines Scrn 07/03/21 07/03/21 07/03/21 04:15 11:31 12:19 WBC Hgb Hct MCV MCH MCHC RDW Neutrophils # Lymphocytes # APTT 69.7 H 40.1 H D-Dimer Potassium BUN Creatinine Glucose POC Glucose (mg/dL) 119 H Magnesium AST Total Protein Albumin Procalcitonin Urine Opiates Screen U Tricyclic Antidepress U Benzodiazepines Scrn - Diagnostic Findings Chest x-ray: report reviewed, image reviewed Additional studies: EKG reviewed, results the VQ scan reviewed, CT of the brain and CT of the face reviewed Assessment and Plan Plan: Assessment: #1. Generalized weakness, confusion, acute on chronic, possibly related to recent history of urinary tract infection which has cleared, and possibility of left lower lobe pneumonia not excluded #2. Acute kidney injury #3. Possible left lower lobe pneumonia or atelectasis. COVID-19 PCR was negative #4. Intermediate probability VQ scan, low suspicion for pulmonary embolism #5. Mild exacerbation of chronic bronchial asthma, severe persistent #6. Recent COVID-19 pneumonia, recovered #7. Worsened overall general functional performance since COVID-19 infection, and recent urinary tract infection #8. History of hypogammaglobulinemia, on Gammagard infusions #9. Hyperlipidemia #10. Recurrent urinary tract infections #11. Chronic back pain #12. Obstructive sleep apnea, not requiring CPAP therapy currently, AHI is 11 #13. Primary fibromyalgia syndrome #14. Adrenal cortical insufficiency #15. Compression fractures of thoracic vertebra #16. Glaucoma #17. Iron deficiency anemia Plan: Continue Levaquin We will add Symbicort We'll stop the heparin infusion Low suspicion for pulmonary embolism We'll start Lovenox 30 mg daily for DVT prophylaxis Continue DuoNeb Maintaining safety precautions Clinically patient is improving, much more awake and alert, oriented 3, We'll continue to follow her clinical course Obtain follow-up labs for tomorrow I performed a history & physical examination of the patient and discussed their management with my nurse practitioner, Eloise Hicks. I reviewed the nurse practitioner's note and agree with the documented findings and plan of care. Lung sounds are positive for dim breath sounds throughout the lung wallace. The findings and the impression was discussed with the patient. I attest to the documentation by the nurse practitioner. Time with Patient: Greater than 30
[2021-07-03 16:25] LABS: Glucose,Whole Blood 318 mg/dL (75-99)
[2021-07-03 18:04] LABS: Anisocytosis Slight; Basophils % (A) 0 %; Eosinophils % (A) 0 %; HCT 34.3 % (34.0-46.0); HGB 9.9 gm/dL (11.4-16.0); Hypochromasia Marked; Lymphocytes # (A) 0.4 k/uL (1.0-4.8); Lymphocytes % (A) 4 %; MCH 21.1 pg (25.0-35.0); MCV 72.9 fL (80.0-100.0); Mean Platelet Volume 7.7; Microcytosis Moderate; Monocytes # (A) 0.2 k/uL (0-1.0); Monocytes % (A) 2 %; Neutrophils # (A) 10.4 k/uL (1.3-7.7); Neutrophils % (A) 93 %; Platelet Count 191 k/uL (150-450); Poikilocytosis Slight; RDW 16.7 % (11.5-15.5); WBC 11.2 k/uL (3.8-10.6)
[2021-07-03 18:21] LABS: African American GFR (CKD) >90 (>60 ml/min/1.73 sqM); Anion Gap 5 mmol/L; Blood Urea Nitrogen 18 mg/dL (7-17); Calcium 8.1 mg/dL (8.4-10.2); Carbon Dioxide 26 mmol/L (22-30); Chloride 104 mmol/L (98-107); Glucose 205 mg/dL (74-99); Non-African American GFR(CKD) 79 (>60 ml/min/1.73 sqM); Potassium 4.3 mmol/L (3.5-5.1); Sodium 135 mmol/L (137-145)
[2021-07-03 20:29] LABS: Glucose,Whole Blood 133 mg/dL (75-99)
[2021-07-03] MEDS: SYMBICORT 160-4.5 MCG INHALER INHALATION SCH (20:40)
[2021-07-03] MEDS: PRAVASTATIN SODIUM 20 MG TAB PO SCH ×2 (21:18→21:30)
[2021-07-03] MEDS: INSULIN DETEMIR (LEVEMIR) 100 UNIT/ML SYR SQ SCH (21:19)
--- NOTE | 2021-07-03 22:01 | P.HPIM ---
History of Present Illness H&P Date: 07/03/21 Chief Complaint: weakness and lethargy Ms. Medrano is a 66-year-old female with a past medical history of severe COPD, severe bronchial asthma on home oxygen and 20 mg of prednisone, type 2 diabetes mellitus, fibromyalgia, hypertension, hyperlipidemia, recent COVID-19 pneumonia, adrenal insufficiency coming into the hospital with a chief complaint of generalized weakness. Patient states that since having Covid, her overall functioning capacity has decreased and also that her mentation has been affected. But for the past couple of days she has been more debilitated and lethargic with some complaints of cough. Patient states that she has been taking her home medications including nebulization treatments without significant relief. Patient's vitals at the time of admission temperature of 97.7, heart rate 87, respiratory rate 14, blood pressure 131/58 saturating at 84% on room air. And patient's labs in the time of admission showing white count of 17, hemoglobin 9.2, platelets 209. D-dimer 1.59 sodium 138, potassium 4.6, chloride 105, bicarb 28, BUN 39, creatinine 1.3 urinalysis was negative for leukocyte esterase and UDS is positive for opiates tricyclic antidepressants and benzos. Coronavirus PCR is negative. Patient also had CT of the brain and a face CT that were negative for any acute abnormality. Patient had a CT of the face as she was having multiple bruises on her face, related to fit patient falling on the dashboard when she was feeling weak and tired and lethargic. Patient also had a VQ scan that was negative/showing low to intermediate probability of PE. Patient was started on a heparin drip initially, that was discontinued after the VQ scan has been negative by pulmonary. Review of Systems EVIEW OF SYSTEMS: CONSTITUTIONAL: No fever, no malaise, + fatigue. HEENT: No recent visual problems or hearing problems. Denied any sore throat. CARDIOVASCULAR: No chest pain, orthopnea, PND, no palpitations, no syncope. PULMONARY: no hemoptysis. GASTROINTESTINAL: No diarrhea, no nausea, no vomiting, no abdominal pain. NEUROLOGICAL: No headaches, no weakness, no numbness. HEMATOLOGICAL: Denies any bleeding or petechiae. GENITOURINARY: Denies any burning micturition, frequency, or urgency. MUSCULOSKELETAL/RHEUMATOLOGICAL: multiple joint pains ENDOCRINE: Denies any polyuria or polydipsia. The rest of the 14-point review of systems is negative. Past Medical History Past Medical History: Asthma, COPD, Diabetes Mellitus, Eye Disorder, Fibromyalgia, GERD/Reflux, Hyperlipidemia, Hypertension, Musculoskeletal Disorder, Pneumonia, Respiratory Disorder, Skin Disorder Additional Past Medical History / Comment(s): Bronchial asthma, tracheobronchomalacia, common variable immunoglobulin deficiency. Chronic back problems. chronic steroid use, suspected component of adrenal insufficiency due to chronic steroid use. Hiatal hernia. 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 Pneumonia / In ICU in [place] after Back surgery - March 2019. Mycobacterium gordonae soft tissue infection. cataracts, glaucoma, fibromyalgia, chronic pain, compression fracture of the spine. History of Any Multi-Drug Resistant Organisms: MRSA Date of last positivie culture/infection: 2010 MDRO Source:: right hand Past Surgical History: Appendectomy, Back Surgery, Breast Surgery, Cholecystectomy, Tubal Ligation Additional Past Surgical History / Comment(s): MULT BRONCHS, WASHINGS, LAST 04/17/14. EXC [facility] CATARACT. BLEPHAROPLASTY/ R&L BREAST BIOPSIES; PORT A CATH IN LEFT CHEST-CHANGED TO RT CHEST,EXC MYCOBACTERIUM AREAS RT ARM 2011; UPPER TEETH EXTRACTED. RT SALPINGECTOMY/FALLOPIAN TUBE REMOVED, I&D BOIL.Jul [facility] EYE AND MUSCLE SURGERY; - mouth (bone) surgery. Pain pump insertion to left buttocks - October 2016. Colonoscopy 2014. Hiatal hernia surgeries 2014&2015. Back surgery (Decompresssion) - February 2019 Past Anesthesia/Blood Transfusion Reactions: Motion Sickness, Postoperative Nausea & Vomiting (PONV) Past Psychological History: Anxiety, Depression Additional Psychological History / Comment(s): . Lives in the family home with her . Not employed outside of the home. Lifelong nonsmoker. No significant history of alcohol use. No history of recreational drug use. No international travels. There are pet dogs in the home. There are still children in the home that they are responsible for. Smoking Status: Never smoker Past Alcohol Use History: None Reported Past Drug Use History: None Reported - Past Family History Mother Family Medical History: Cancer Additional Family Medical History / Comment(s): BREAST CANCER. Father Additional Family Medical History / Comment(s): r/t suicide Medications and Allergies Home Medications Medication Instructions Recorded Confirmed Type Escitalopram [Lexapro] 20 mg PO DAILY 01/01/14 07/02/21 History Amitriptyline HCl [Elavil] 30 mg PO HS 12/07/14 07/02/21 History traZODone HCL 75 mg PO HS 09/10/16 07/02/21 History buPROPion XL [Wellbutrin XL] 450 mg PO DAILY 07/24/17 07/02/21 History Fluticasone/Salmeterol [Advair Hfa 2 puff INHALATION RT-BID 04/09/19 07/02/21 History 230-21 Mcg Inhaler] Pregabalin [Lyrica] 100 mg PO TID 04/09/19 07/02/21 History ALPRAZolam [Xanax] 0.25 mg PO HS PRN 07/21/20 07/02/21 History Pantoprazole [Protonix] 40 mg PO DAILY 07/21/20 07/02/21 History Pravastatin Sodium [Pravachol] 10 mg PO HS 07/21/20 07/02/21 History Promethazine 6.25MG/5Ml [Phenergan 6.25 mg PO DIRECTED PRN 07/21/20 07/02/21 History Syrup] Acetaminophen Tab [Tylenol] 650 mg PO Q6HR PRN tab 07/27/20 07/02/21 Rx Albuterol Inhaler [Ventolin Hfa 2 puff INHALATION RT-QID PRN #1 07/27/20 07/02/21 Rx Inhaler] puff Denosumab [Prolia] 60 mg SQ Q180D 03/03/21 07/02/21 History Glucagon Emergency Kit 1 mg IM ONCE PRN 03/03/21 07/02/21 History Insulin Aspart [NovoLOG Flexpen] 6 units SQ AC-TID 03/03/21 07/02/21 History Insulin Glargine,Hum.rec.anlog 10 unit SQ HS 03/03/21 07/02/21 History [Lantus Solostar Pen] busPIRone HCL 30 mg PO BID 03/03/21 07/02/21 History ALPRAZolam [Xanax] 0.5 mg PO TID PRN 05/15/21 07/02/21 History Furosemide [Lasix] 40 mg PO TID 05/15/21 07/02/21 History HYDROcodone/APAP 7.5-325MG [[place] 1 tab PO Q4H PRN 05/15/21 07/02/21 History 7.5-325] Potassium Chloride [Klor-Con 20] 60 meq PO BID 05/15/21 07/02/21 History Spironolactone [Aldactone] 25 mg PO TID 05/15/21 07/02/21 History predniSONE 20 mg PO DAILY 05/15/21 07/02/21 History Allergies Allergy/AdvReac Type Severity Reaction Status Date / Time crisaborole [From Eucrisa] Allergy Rash/Hives Verified 07/02/21 13:57 cefuroxime axetil AdvReac Severe Abdominal Verified 07/02/21 13:57 [From Ceftin] Pain ciprofloxacin HCl AdvReac Severe Abdominal Verified 07/02/21 13:57 [From Cipro] Pain erythromycin base AdvReac Unknown Abdominal Verified 07/02/21 13:57 [Erythromycin Base] Pain sulfamethoxazole AdvReac Unknown Abdominal Verified 07/02/21 13:57 [From Bactrim] Pain trimethoprim [From Bactrim] AdvReac Unknown Abdominal Verified 07/02/21 13:57 Pain indomethacin sodium AdvReac severe Verified 07/02/21 13:57 [From Indocin] Confusion NSAIDS (Non-Steroidal AdvReac Dyspnea Verified 07/02/21 13:57 Anti-Inflamma Penicillins AdvReac Nausea & Verified 07/02/21 13:57 Vomiting Sulfa (Sulfonamide AdvReac Abdominal Verified 07/02/21 13:57 Antibiotics) Pain Physical Exam Vitals: Vital Signs Temp Pulse Pulse Resp BP BP Pulse Ox 07/03/21 11:24 84 07/03/21 11:08 80 07/03/21 08:00 97.9 F 72 20 137/64 94 L 07/03/21 05:24 98 F 82 20 144/75 96 07/03/21 04:00 97.9 F 79 20 125/60 95 07/03/21 02:00 18 07/03/21 00:09 18 07/02/21 23:19 97.6 F 79 18 115/85 95 07/02/21 20:30 97.8 F 76 18 109/58 96 07/02/21 19:30 75 18 121/62 97 07/02/21 17:00 72 17 136/62 97 07/02/21 16:00 68 18 96/56 96 07/02/21 15:00 68 12 99/48 98 07/02/21 14:40 70 14 105/56 99 07/02/21 14:30 105/56 07/02/21 14:20 105/56 07/02/21 13:20 83 15 126/55 93 L 07/02/21 12:55 97.7 F 87 14 131/58 84 L Intake and Output 07/02/21 07/03/21 07/03/21 23:59 06:59 14:59 Intake Total 480 Output Total Balance 480 Intake: Intake, IV Titration Amount Heparin Sod,Pork in 0.45% NaCl 25,000 unit In 0.45 % NaCl 1 250ml.bag @ 18 UNITS/KG/HR 9.798 mls/hr IV .Q24H [facility] Rx#: [id number] Oral 480 Output: Urine Other: Voiding Method External Catheter Weight PHYSICAL EXAMINATION: GENERAL: The patient is alert and oriented x2-3, not in any acute distress. Cushingoid features HEENT: multiple bruises on the face CARDIOVASCULAR: S1 and S2 present. No murmurs, rubs, or gallops. PULMONARY: Bilateral breath sounds diminished at the lower lung bases. ABDOMEN: Soft, nontender, nondistended, normoactive bowel sounds. No palpable organomegaly. MUSCULOSKELETAL: No joint swelling or deformity. EXTREMITIES: No cyanosis, clubbing, or pedal edema. NEUROLOGICAL: Gross neurological examination did not reveal any focal deficits. SKIN: frail. Results CBC & Chem 7: 07/03/21 17:30 07/03/21 17:30 Labs: Abnormal Lab Results - Last 24 Hours (Table) 07/02/21 07/02/21 07/02/21 Range/Units 12:55 13:19 15:43 WBC (3.8-10.6) k/uL Hgb (11.4-16.0) gm/dL Hct (34.0-46.0) % MCV (80.0-100.0) fL MCH (25.0-35.0) pg MCHC (31.0-37.0) g/dL RDW (11.5-15.5) % Neutrophils # (1.3-7.7) k/uL Lymphocytes # (1.0-4.8) k/uL APTT (22.0-30.0) sec D-Dimer (<0.60) mg/L FEU Potassium 5.6 H (3.5-5.1) mmol/L BUN 39 H (7-17) mg/dL Creatinine 1.30 H (0.52-1.04) mg/dL Glucose 182 H (74-99) mg/dL POC Glucose (mg/dL) 197 H (75-99) mg/dL Magnesium 3.0 H (1.6-2.3) mg/dL AST 39 H (14-36) U/L Total Protein 5.6 L (6.3-8.2) g/dL Albumin 3.0 L (3.5-5.0) g/dL Procalcitonin (0.02-0.09) ng/mL Urine Opiates Screen Detected H (NotDetected) U Tricyclic Antidepress Detected H (NotDetected) U Benzodiazepines Scrn Detected H (NotDetected) 07/02/21 07/02/21 07/02/21 Range/Units 15:43 15:43 15:51 WBC 17.0 H (3.8-10.6) k/uL Hgb 9.2 L D (11.4-16.0) gm/dL Hct 31.1 L (34.0-46.0) % MCV 72.8 L D (80.0-100.0) fL MCH 21.5 L (25.0-35.0) pg MCHC 29.6 L (31.0-37.0) g/dL RDW 16.5 H (11.5-15.5) % Neutrophils # 15.8 H (1.3-7.7) k/uL Lymphocytes # 0.5 L (1.0-4.8) k/uL APTT (22.0-30.0) sec D-Dimer 1.59 H (<0.60) mg/L FEU Potassium (3.5-5.1) mmol/L BUN (7-17) mg/dL Creatinine (0.52-1.04) mg/dL Glucose (74-99) mg/dL POC Glucose (mg/dL) (75-99) mg/dL Magnesium (1.6-2.3) mg/dL AST (14-36) U/L Total Protein (6.3-8.2) g/dL Albumin (3.5-5.0) g/dL Procalcitonin 0.41 H (0.02-0.09) ng/mL Urine Opiates Screen (NotDetected) U Tricyclic Antidepress (NotDetected) U Benzodiazepines Scrn (NotDetected) 07/03/21 Range/Units 04:15 WBC (3.8-10.6) k/uL Hgb (11.4-16.0) gm/dL Hct (34.0-46.0) % MCV (80.0-100.0) fL MCH (25.0-35.0) pg MCHC (31.0-37.0) g/dL RDW (11.5-15.5) % Neutrophils # (1.3-7.7) k/uL Lymphocytes # (1.0-4.8) k/uL APTT 69.7 H (22.0-30.0) sec D-Dimer (<0.60) mg/L FEU Potassium (3.5-5.1) mmol/L BUN (7-17) mg/dL Creatinine (0.52-1.04) mg/dL Glucose (74-99) mg/dL POC Glucose (mg/dL) (75-99) mg/dL Magnesium (1.6-2.3) mg/dL AST (14-36) U/L Total Protein (6.3-8.2) g/dL Albumin (3.5-5.0) g/dL Procalcitonin (0.02-0.09) ng/mL Urine Opiates Screen (NotDetected) U Tricyclic Antidepress (NotDetected) U Benzodiazepines Scrn (NotDetected) Thrombosis Risk Factor Assmnt - Choose All That Apply Any of the Below Risk Factors Present?: Yes Each Factor Represents 1 point: Abnormal pulmonary function (COPD) Other Risk Factors: Yes Each Risk Factor Represents 2 Points: Age 61-74 years Other congenital or acquired thrombophilia - If yes, enter type in comment: No Thrombosis Risk Factor Assessment Total Risk Factor Score: 3 Thrombosis Risk Factor Assessment Level: Moderate Risk Assessment and Plan Assessment: ASSESSMENT Generalized weakness/encephalopathy Recent urinary tract infection Possibility of left lower lobe pneumonia Acute kidney injury Acute exacerbation of chronic bronchial asthma Renal insufficiency History of recent COVID-19 pneumonia And deficiency anemia Generalized debility Cushingoid features Hyper lipidemia Diabetes mellitus secondary to chronic steroid dependence Recurrent UTIs Chronic low back pain Obstructive sleep apnea Compression fracture of thoracic vertebra Glaucoma PLAN: Patient has generalized confusion/weakness with possibility of left lower lobe pneumonia so currently on levofloxacin. Blood cultures currently pending. Patient to be continued on her home maintenance of 20 mg of prednisone. She has been started on breathing treatments with Symbicort and albuterol/DuoNeb treatm ents. Continue with insulin for hyperglycemia secondary to steroid dependence. Lovenox for DVT prophylaxis. Overall prognosis remains guarded. Further recommendations to follow depending on the progress of the patient.
[2021-07-04] MEDS: ACETAMINOPHEN TAB 325 MG TAB PO PRN ×2 (00:56→11:54)
[2021-07-04 05:50] LABS: Glucose,Whole Blood 125 mg/dL (75-99)
[2021-07-04 05:57] LABS: Glucose,Whole Blood 106 mg/dL (75-99)
[2021-07-04] MEDS: INSULIN ASPART (NovoLOG) 100 UNIT/ML VIAL SQ SCH ×7 (06:49→20:28)
[2021-07-04] MEDS: SODIUM CHLORIDE 0.9% 1,000 ML IV SCH ×3 (07:33→17:10)
[2021-07-04] MEDS: predniSONE 20 MG TAB PO SCH (08:06)
[2021-07-04] MEDS: PANTOPRAZOLE 40 MG TABLET PO SCH (08:06)
[2021-07-04] MEDS ORDERED: ENOXAPARIN 30 MG/0.3 ML SYRINGE SQ SCH (09:00)
[2021-07-04] MEDS: IPRATROPIUM-ALBUTEROL 3 ML NEB INHALATION SCH ×4 (09:24→21:00)
[2021-07-04] MEDS: SYMBICORT 160-4.5 MCG INHALER INHALATION SCH ×2 (09:24→21:00)
[2021-07-04 09:34] LABS: Anisocytosis Slight; Basophils % (A) 0 %; Eosinophils # (A) 0.1 k/uL (0-0.7); Eosinophils % (A) 1 %; HCT 32.7 % (34.0-46.0); HGB 9.7 gm/dL (11.4-16.0); Hypochromasia Marked; Lymphocytes % (A) 22 %; MCH 21.7 pg (25.0-35.0); MCHC 29.5 g/dL (31.0-37.0); MCV 73.6 fL (80.0-100.0); Microcytosis Moderate; Monocytes # (A) 0.5 k/uL (0-1.0); Monocytes % (A) 5 %; Neutrophils # (A) 6.4 k/uL (1.3-7.7); Neutrophils % (A) 69 %; Platelet Count 194 k/uL (150-450); Poikilocytosis Slight; RBC 4.44 m/uL (3.80-5.40); RDW 16.9 % (11.5-15.5); WBC 9.2 k/uL (3.8-10.6)
[2021-07-04 10:08] LABS: ALT 32 U/L (4-34); AST 46 U/L (14-36); African American GFR (CKD) >90 (>60 ml/min/1.73 sqM); Albumin 2.8 g/dL (3.5-5.0); Alkaline Phosphatase 67 U/L (38-126); Anion Gap 6 mmol/L; Blood Urea Nitrogen 14 mg/dL (7-17); Calcium 8.5 mg/dL (8.4-10.2); Carbon Dioxide 25 mmol/L (22-30); Chloride 108 mmol/L (98-107); Glucose 90 mg/dL (74-99); Non-African American GFR(CKD) 82 (>60 ml/min/1.73 sqM); Potassium 3.2 mmol/L (3.5-5.1); Sodium 139 mmol/L (137-145); Total Bilirubin 0.3 mg/dL (0.2-1.3); Total Protein 5.7 g/dL (6.3-8.2)
[2021-07-04] MEDS ORDERED: POTASSIUM CHLORIDE ER 20 MEQ TAB.ER PO STA (10:34)
[2021-07-04 11:28] LABS: Glucose,Whole Blood 82 mg/dL (75-99)
--- NOTE | 2021-07-04 11:41 | P.PN ---
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 Patient has been increasingly more generally debilitated, she has been lethargic, she has had recent history of urinary tract infections causing encephalopathy. She is currently more awake and alert, she is oriented 3. She follows with Dr. Kothari in the pulmonary clinic, she was recently seen in the office on 06/21/2021. COVID-19 infection was also thought to have affected her mentation and overall functional level. Patient has been more forgetful, confused, weak and has had some occasional gemma ttering. Patient has a history of severe persistent bronchial asthma, she is on home oxygen, she is on a combination of Advair, Ventolin, and nebulized ipratropium at home, most recently she has developed some oral thrush and her Advair was placed on hold. She was also referred to Dr. Almeida an outpatient basis for ongoing fatigue, weakness, and confusion. MRI of the brain that was completing outpatient basis was negative. Chest x-ray was completing on admission showing pulmonary interstitial and airspace edema, and infiltrate in the left lower lobe, and probable bilateral pleural effusions. Patient reports no fever or chills, reports slight chest congestion, but no chest discomfort, no hemoptysis. Her white count is elevated at 17 on admission, hemoglobin is 9.2, neutrophils are 50.8, lymphocytes 0.5, d-dimer was 1.59, sodium was 138, potassium is 5.6, chloride was 105, CO2 was 28, BUN is 39, creatinine was 1.3, with evidence of acute kidney injury, lactic acid was normal at 0.7, troponin is less than 0.012, ammonia level was less than 9, proBNP was normal at 96, pro calcitonin level was elevated at 0.41, urinalysis showed no evidence of infection, urine drug screen showed opiates, tricyclic antidepressants, and benzodiazepines, serum alcohol level was less than 10, COVID-19 PCR was negative. Patient was started on Levaquin for empiric antibiotic coverage, breathing treatments, she was hydrated with IV fluids. Blood cultures have been sent. Today's exam she is much more awake and alert, she is on heparin infusion for elevated d-dimer, and VQ scan showing low to intermediate probability of pulmonary embolism. CT of the brain showed mild atrophy, no acute abnormality. CT scan of the facial bones showed no fracture. This was completed related to bruising on her face related to patient hitting her face on the dashboard when she was lethargic and confused. On today's evaluation of 07/04/2021, the patient is awake and alert and she is talking to me normally. She is complaining of pain. I reviewed the chest x-ray and the patient had a consolidation of the left lower lobe consistent with pneumonia and the patient is currently on Levaquin. UA was negative. Overnight he has been was also negative. Her main complaint is chronic pain. The pro calcitonin LEVEL IS AT 0.41. CREATININE IS NORMAL. ELECTROLYTES ARE NORMAL. PROBNP LEVEL IS NORMAL. D-DIMER WAS AT 1.59. OTHERWISE, THE PATIENT IS DOING WELL. SHE HAS A BRUISE ACROSS HER FACE RELATED TO A RECENT BLUNT TRAUMA. MENTAL STATUS IS MORE STABLE. SHE IS ON LOVENOX FOR DVT PROPHYLAXIS. SHE IS CHRONICALLY ON PREDNISONE 20 MG BY MOUTH DAILY. Objective - Vital Signs Vital signs: Vital Signs Temp 98 F 07/04/21 08:00 Pulse 92 07/04/21 09:38 Resp 18 07/04/21 08:00 BP 137/62 07/04/21 08:00 Pulse Ox 95 07/04/21 08:00 Intake & Output 07/03/21 07/04/21 07/04/21 18:59 06:59 18:59 Intake Total 720 360 120 Output Total 900 700 Balance -180 360 -580 Weight 55 kg Intake: Intake, IV Titration 360 Amount Sodium Chloride 0.9% 1, 360 000 ml @ 130 mls/hr IV . Q7H42M [facility] Rx#:[id number] Oral 720 120 Output: Urine 900 700 Other: Voiding Method External Catheter External Catheter External Catheter # Voids 1 - Exam GENERAL EXAM: Alert, very pleasant, 58-year-old white female, oriented 3, on 2 L of oxygen with pulse ox of 94% with diffuse bruising of her face, bridge of the nose, cheeks, and forehead from hitting her face on the dashboard comfortable in no apparent distress. HEAD: Normocephalic/atraumatic. Diffuse bruising on the face EYES: Normal reaction of pupils, equal size. Conjunctiva pink, sclera white. NOSE: Clear with pink turbinates. THROAT: No erythema or exudates. NECK: No masses, no JVD, no thyroid enlargement, no adenopathy. CHEST: No chest wall deformity. Symmetrical expansion. LUNGS: Equal air entry with no crackles, wheeze, rhonchi or dullness. CVS: Regular rate and rhythm, normal S1 and S2, no gallops, no murmurs, no rubs ABDOMEN: Soft, nontender. No hepatosplenomegaly, normal bowel sounds, no guarding or rigidity. EXTREMITIES: No clubbing, no edema, no cyanosis, 2+ pulses and upper and lower extremities. MUSCULOSKELETAL: Muscle strength and tone normal. SPINE: No scoliosis or deformity SKIN: No rashes CENTRAL NERVOUS SYSTEM: Alert and oriented -3. No focal deficits, tone is normal in all 4 extremities. PSYCHIATRIC: Alert and oriented -3. Appropriate affect. Intact judgment and insight. - Labs CBC & Chem 7: 07/04/21 08:56 07/04/21 08:56 Labs: Abnormal Lab Results - Last 24 Hours (Table) 07/03/21 07/03/21 07/03/21 Range/Units 11:31 12:19 16:23 WBC (3.8-10.6) k/uL Hgb (11.4-16.0) gm/dL Hct (34.0-46.0) % MCV (80.0-100.0) fL MCH (25.0-35.0) pg MCHC (31.0-37.0) g/dL RDW (11.5-15.5) % Neutrophils # (1.3-7.7) k/uL Lymphocytes # (1.0-4.8) k/uL APTT 40.1 H (22.0-30.0) sec Sodium (137-145) mmol/L Potassium (3.5-5.1) mmol/L Chloride (98-107) mmol/L BUN (7-17) mg/dL Glucose (74-99) mg/dL POC Glucose (mg/dL) 119 H 318 H (75-99) mg/dL Calcium (8.4-10.2) mg/dL AST (14-36) U/L Total Protein (6.3-8.2) g/dL Albumin (3.5-5.0) g/dL 07/03/21 07/03/21 07/03/21 Range/Units 17:30 17:30 20:19 WBC 11.2 H (3.8-10.6) k/uL Hgb 9.9 L (11.4-16.0) gm/dL Hct (34.0-46.0) % MCV 72.9 L (80.0-100.0) fL MCH 21.1 L (25.0-35.0) pg MCHC 29.0 L (31.0-37.0) g/dL RDW 16.7 H (11.5-15.5) % Neutrophils # 10.4 H (1.3-7.7) k/uL Lymphocytes # 0.4 L (1.0-4.8) k/uL APTT (22.0-30.0) sec Sodium 135 L (137-145) mmol/L Potassium (3.5-5.1) mmol/L Chloride (98-107) mmol/L BUN 18 H (7-17) mg/dL Glucose 205 H (74-99) mg/dL POC Glucose (mg/dL) 133 H (75-99) mg/dL Calcium 8.1 L (8.4-10.2) mg/dL AST (14-36) U/L Total Protein (6.3-8.2) g/dL Albumin (3.5-5.0) g/dL 07/04/21 07/04/21 07/04/21 Range/Units 05:47 05:55 08:56 WBC (3.8-10.6) k/uL Hgb 9.7 L (11.4-16.0) gm/dL Hct 32.7 L (34.0-46.0) % MCV 73.6 L (80.0-100.0) fL MCH 21.7 L (25.0-35.0) pg MCHC 29.5 L (31.0-37.0) g/dL RDW 16.9 H (11.5-15.5) % Neutrophils # (1.3-7.7) k/uL Lymphocytes # (1.0-4.8) k/uL APTT (22.0-30.0) sec Sodium (137-145) mmol/L Potassium (3.5-5.1) mmol/L Chloride (98-107) mmol/L BUN (7-17) mg/dL Glucose (74-99) mg/dL POC Glucose (mg/dL) 125 H 106 H (75-99) mg/dL Calcium (8.4-10.2) mg/dL AST (14-36) U/L Total Protein (6.3-8.2) g/dL Albumin (3.5-5.0) g/dL 07/04/21 Range/Units 08:56 WBC (3.8-10.6) k/uL Hgb (11.4-16.0) gm/dL Hct (34.0-46.0) % MCV (80.0-100.0) fL MCH (25.0-35.0) pg MCHC (31.0-37.0) g/dL RDW (11.5-15.5) % Neutrophils # (1.3-7.7) k/uL Lymphocytes # (1.0-4.8) k/uL APTT (22.0-30.0) sec Sodium (137-145) mmol/L Potassium 3.2 L (3.5-5.1) mmol/L Chloride 108 H (98-107) mmol/L BUN (7-17) mg/dL Glucose (74-99) mg/dL POC Glucose (mg/dL) (75-99) mg/dL Calcium (8.4-10.2) mg/dL AST 46 H (14-36) U/L Total Protein 5.7 L (6.3-8.2) g/dL Albumin 2.8 L (3.5-5.0) g/dL Microbiology - Last 24 Hours (Table) 07/02/21 15:51 Blood Culture - Preliminary Blood No Growth after 24 hours Assessment and Plan Plan: #1. Left lower lobe pneumonia, mildly elevated procal level, with secondary Generalized weakness and confusion #2. Acute kidney injury, recovered #3. Possible left lower lobe pneumonia or atelectasis. COVID-19 PCR was negative #4. Intermediate probability VQ scan, low suspicion for pulmonary embolism #5. Mild exacerbation of chronic bronchial asthma, severe persistent #6. Recent COVID-19 pneumonia, recovered #7. Worsened overall general functional performance since COVID-19 infection, and recent urinary tract infection #8. History of hypogammaglobulinemia, on Gammagard infusions #9. Hyperlipidemia #10. Recurrent urinary tract infections #11. Chronic back pain #12. Obstructive sleep apnea, not requiring CPAP therapy currently, AHI is 11 #13. Primary fibromyalgia syndrome #14. Adrenal cortical insufficiency #15. Compression fractures of thoracic vertebra #16. Glaucoma #17. Iron deficiency anemia Plan: Continue Levaquin Symbicort Lovenox 30 mg daily for DVT prophylaxis Continue DuoNeb Maintaining safety precautions CXR in am IS Clinically patient is improving, much more awake and alert, oriented 3, We'll continue to follow her clinical course Obtain follow-up labs for tomorrow
[2021-07-04] MEDS ORDERED: MAGNESIUM HYDROXIDE 2,400 MG/10 ML CUP PO PRN (11:44)
[2021-07-04] MEDS: ONDANSETRON 4 MG/2 ML VIAL IVP PRN (12:18)
[2021-07-04] MEDS: LEVOFLOXACIN 750MG-D5W PMX 750 MG in DEXTROSE/WATER 1 150ML.BAG IVPB SCH (13:05)
--- NOTE | 2021-07-04 13:26 | XR ---
EXAMINATION TYPE: XR abdomen 1V DATE OF EXAM: 07/04/2021 1:14 PM CLINICAL HISTORY: Abdominal pain and nausea. TECHNIQUE: Two supine KUB images of the abdomen are obtained. COMPARISON: Abdominal x-ray January 26, 2017. CT abdomen and pelvis September 09, 2016. FINDINGS: Gas is seen in nondistended stomach. Scattered gas is seen in nondistended small and large bowel loops. Moderate to severe rectal fecal prominence. Slightly prominent gas-filled cecum. Elevated left hemidiaphragm suspicious for small left pleural effusion and associated basilar atelect asis and/or infiltrate. Partial visualization of a right internal jugular Mediport catheter terminati ng in right atrium. Cholecystectomy clips are redemonstrated. Multilevel spurring in the thoracolumba r spine. Pelvic vascular calcification. Right mid abdominal calcifications on lower abdominal x-ray c ould reflect product of chronic pancreatitis not clearly seen on 2017 CT. Correlate clinically. IMPRESSION: Overall nonspecific strongly favor nonobstructive bowel gas pattern. Moderate rectal fecal stasis not ed. Calcifications right mid abdomen of uncertain etiology.
--- NOTE | 2021-07-04 15:48 | CDI ---
Documentation Clarification Form Date: 07/04/2021 03:36:37 PM From: Doreen Sam Rn, CCDS Admit Date: 07/02/2021 06:27:00 PM Patient Name: Amelia Medrano Visit Number: [id number] ATTENTION: The Clinical Documentation Specialists (CDI) and [facility] Coding Staff appreciate your assistance in clarifying documentation. Please respond to the clarification below the line at the bottom and electronically sign. The CDI & [facility] Coding staff will review the response and follow-up if needed. Please note: Queries are made part of the Legal Health Record. If you have any questions, please contact the author of this message via ITS. Dr. Maria Antonia Sawyer Encephalopathy is documented 07/03 H&P. Additional clarification regarding the type of encephalopathy is requested. 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 Parietal chronic small vessel ischemia. No change compared to old exam. No acute abnormality." Documented infectious Process: Pneumnia, UTI Organ Dysfunction: BRANDEE, Acute exacerbation of chronic bronchial asthma Treatment: Iv Levaquin 750 mg IVPB Q 12 hrs. 07/04 40 meq KCL PO OT 07/02 0.9% NS IVF Bolus 500 cc followed by 130/hr. Please clarify the type of encephalopathy, if known: [ ] Anoxic Encephalopathy [ ] Metabolic Encephalopathy [ ] Other, please specify [ ] Unable to determine (Template Last Revised: October 2020) Metabolic Encephalopathy MTDD
--- NOTE | 2021-07-04 16:04 | CDI ---
Documentation Clarification Form Date: 07/04/2021 03:50:14 PM From: Doreen Sam RN, CCDS Admit Date: 07/02/2021 06:27:00 PM Patient Name: Amelia Medrano Visit Number: [id number] ATTENTION: The Clinical Documentation Specialists (CDI) and [facility] Coding Staff appreciate your assistance in clarifying documentation. Please respond to the clarification below the line at the bottom and electronically sign. The CDI & [facility] Coding staff will review the response and follow-up if needed. Please note: Queries are made part of the Legal Health Record. If you have any questions, please contact the author of this message via ITS. Dr. Maria Antonia Sawyer Your patient has [documented home O2 use. Based on this information and the findings below, is there an additional diagnosis that is clinically appropriate for this patient? History/Risk Factors: Tobacco use: never Home oxygen: 2L NC OTC Severe persistent bronchial asthma on Home O2, GERD, HTN, Common variable immunoglobulin deficiency, chronic steroid use Clinical Indicators: 07/03 H&P: "Ms. Medrano is a 66-year-old female with a past medical history of severe COPD, severe bronchial asthma on home oxygen and 20 mg of prednisone, type 2 diabetes mellitus, fibromyalgia, hypertension, hyperlipidemia, recent COVID-19 pneumonia, adrenal insufficiency coming into the hospital with a chief complaint of generalized weakness." 07/03 & 07/04 Pulmonary Consult and Progress Note: "66-year-old female patient with multiple medical conditions, including COPD/severe chronic bronchial asthma, on home oxygen, and maintenance dose of prednisone, diabetes mellitus type 2, fibromyalgia, hypertension, hyperlipidemia, recurrent urinary tract infections, recent COVID-19 pneumonia, 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 [ ] Chronic Hypoxic Respiratory Failure (pO2 <60 mm Hg or SpO2 <91% on room air) [ ] Chronic Hypercapnic Respiratory Failure (pCO2 >50 and pH <7.35) [ ] Other Diagnosis, please specify [ ] Unable to determine (Template Last Revised: October 2020) Chronic Hypercapnic/hypoxic respiratory failure MTDD
[2021-07-04 16:33] LABS: Glucose,Whole Blood 171 mg/dL (75-99)
[2021-07-04] MEDS ORDERED: bisacodyL 10 MG SUPP RECTAL STA (16:48)
[2021-07-04 20:28] LABS: Glucose,Whole Blood 95 mg/dL (75-99)
[2021-07-04] MEDS: PRAVASTATIN SODIUM 20 MG TAB PO SCH (20:37)
[2021-07-04] MEDS: INSULIN DETEMIR (LEVEMIR) 100 UNIT/ML SYR SQ SCH (20:39)
--- NOTE | 2021-07-05 02:31 | P.PN ---
Subjective Progress Note Date: 07/04/21 Principal diagnosis: Generalized weakness/encephalopathy Ms. Medrano is a 66-year-old female with a past medical history of severe COPD, severe bronchial asthma on home oxygen and 20 mg of prednisone, type 2 diabetes mellitus, fibromyalgia, hypertension, hyperlipidemia, recent COVID-19 pneumonia, adrenal insufficiency coming into the hospital with a chief complaint of generalized weakness. Patient states that since having Covid, her overall functioning capacity has decreased and also that her mentation has been affected. But for the past couple of days she has been more debilitated and lethargic with some complaints of cough. Patient states that she has been taking her home medications including nebulization treatments without signif icant relief. Patient's vitals at the time of admission temperature of 97.7, heart rate 87, respiratory rate 14, blood pressure 131/58 saturating at 84% on room air. And patient's labs in the time of admission showing white count of 17, hemoglobin 9.2, platelets 209. D-dimer 1.59 sodium 138, potassium 4.6, chloride 105, bicarb 28, BUN 39, creatinine 1.3 urinalysis was negative for leukocyte esterase and UDS is positive for opiates tricyclic antidepressants and benzos. Coronavirus PCR is negative. Patient also had CT of the brain and a face CT that were negative for any acute abnormality. Patient had a CT of the face as she was having multiple bruises on her face, related to fit patient falling on the dashboard when she was feeling weak and tired and lethargic. Patient also had a VQ scan that was negative/showing low to intermediate probability of PE. Patient was started on a heparin drip initially, that was discontinued after the VQ scan has been negative .. On 07/04/2021 patient seen and examined at bedside. Patient complaining of nausea. Overnight no acute issues reported by nursing staff. Patient states that she has pain, chronic pain all over her body areas. Patient denies any chest pain or palpitations. No cough or difficulty in breathing. On reviewing the patient's vitals temperature of 98.8, heart rate 90, respiratory 18, blood pressure 150 x 67 saturating at 96% on room air. On reviewing the patient's labs white count of 9.6 hemoglobin 9.7 platelets 194 sodium 139, potassium 3.2, chloride 108, bicarb 25, BUN 14, creatinine 0.75 Albumin of 2.8, Patient's medications have been reviewed she continues to be on breathing treatments, inhalers, Lovenox 40 DVT prophylaxis, levofloxacin Protonix and prednisone Objective - Vital Signs Vital signs: Vital Signs Temp 98 F 07/04/21 08:00 Pulse 92 07/04/21 09:38 Resp 18 07/04/21 08:00 BP 137/62 07/04/21 08:00 Pulse Ox 95 07/04/21 08:00 Intake & Output 07/03/21 07/04/21 07/04/21 18:59 06:59 18:59 Intake Total 720 360 120 Output Total 900 700 Balance -180 360 -580 Weight 55 kg Intake: Intake, IV Titration 360 Amount Sodium Chloride 0.9% 1, 360 000 ml @ 130 mls/hr IV . Q7H42M [facility] Rx#:[id number] Oral 720 120 Output: Urine 900 700 Other: Voiding Method External Catheter External Catheter External Catheter # Voids 1 - Exam PHYSICAL EXAMINATION: GENERAL: The patient is alert and oriented x2-3, not in any acute distress. Cushingoid features HEENT: multiple bruises on the face CARDIOVASCULAR: S1 and S2 present. No murmurs, rubs, or gallops. PULMONARY: Bilateral breath sounds diminished at the lower lung bases. ABDOMEN: Soft, nontender, nondistended, normoactive bowel sounds. MUSCULOSKELETAL: No joint swelling or deformity. EXTREMITIES: No cyanosis, clubbing, or pedal edema. NEUROLOGICAL: Gross neurological examination did not reveal any focal deficits. SKIN: frail. - Labs CBC & Chem 7: 07/04/21 08:56 07/04/21 08:56 Labs: Abnormal Lab Results - Last 24 Hours (Table) 07/03/21 07/03/21 07/03/21 Range/Units 12:19 16:23 17:30 WBC 11.2 H (3.8-10.6) k/uL Hgb 9.9 L (11.4-16.0) gm/dL Hct (34.0-46.0) % MCV 72.9 L (80.0-100.0) fL MCH 21.1 L (25.0-35.0) pg MCHC 29.0 L (31.0-37.0) g/dL RDW 16.7 H (11.5-15.5) % Neutrophils # 10.4 H (1.3-7.7) k/uL Lymphocytes # 0.4 L (1.0-4.8) k/uL APTT 40.1 H (22.0-30.0) sec Sodium (137-145) mmol/L Potassium (3.5-5.1) mmol/L Chloride (98-107) mmol/L BUN (7-17) mg/dL Glucose (74-99) mg/dL POC Glucose (mg/dL) 318 H (75-99) mg/dL Calcium (8.4-10.2) mg/dL AST (14-36) U/L Total Protein (6.3-8.2) g/dL Albumin (3.5-5.0) g/dL 07/03/21 07/03/21 07/04/21 Range/Units 17:30 20:19 05:47 WBC (3.8-10.6) k/uL Hgb (11.4-16.0) gm/dL Hct (34.0-46.0) % MCV (80.0-100.0) fL MCH (25.0-35.0) pg MCHC (31.0-37.0) g/dL RDW (11.5-15.5) % Neutrophils # (1.3-7.7) k/uL Lymphocytes # (1.0-4.8) k/uL APTT (22.0-30.0) sec Sodium 135 L (137-145) mmol/L Potassium (3.5-5.1) mmol/L Chloride (98-107) mmol/L BUN 18 H (7-17) mg/dL Glucose 205 H (74-99) mg/dL POC Glucose (mg/dL) 133 H 125 H (75-99) mg/dL Calcium 8.1 L (8.4-10.2) mg/dL AST (14-36) U/L Total Protein (6.3-8.2) g/dL Albumin (3.5-5.0) g/dL 07/04/21 07/04/21 07/04/21 Range/Units 05:55 08:56 08:56 WBC (3.8-10.6) k/uL Hgb 9.7 L (11.4-16.0) gm/dL Hct 32.7 L (34.0-46.0) % MCV 73.6 L (80.0-100.0) fL MCH 21.7 L (25.0-35.0) pg MCHC 29.5 L (31.0-37.0) g/dL RDW 16.9 H (11.5-15.5) % Neutrophils # (1.3-7.7) k/uL Lymphocytes # (1.0-4.8) k/uL APTT (22.0-30.0) sec Sodium (137-145) mmol/L Potassium 3.2 L (3.5-5.1) mmol/L Chloride 108 H (98-107) mmol/L BUN (7-17) mg/dL Glucose (74-99) mg/dL POC Glucose (mg/dL) 106 H (75-99) mg/dL Calcium (8.4-10.2) mg/dL AST 46 H (14-36) U/L Total Protein 5.7 L (6.3-8.2) g/dL Albumin 2.8 L (3.5-5.0) g/dL Microbiology - Last 24 Hours (Table) 07/02/21 15:51 Blood Culture - Preliminary Blood No Growth after 24 hours Assessment and Plan Assessment: ASSESSMENT Generalized weakness/encephalopathy Recent urinary tract infection Possibility of left lower lobe pneumonia Acute kidney injury Acute exacerbation of chronic bronchial asthma Renal insufficiency History of recent COVID-19 pneumonia And deficiency anemia Generalized debility Cushingoid features Hyper lipidemia Diabetes mellitus secondary to chronic steroid dependence Recurrent UTIs Chronic low back pain Obstructive sleep apnea Compression fracture of thoracic vertebra Glaucoma PLAN: Symptomatic management of her nausea Patient has generalized confusion/weakness with possibility of left lower lobe pneumonia so currently on levofloxacin. Blood cultures currently on growth till date. Patient to be continued on her home maintenance of 20 mg of prednisone. She has been started on breathing treatments with Symbicort and albuterol/DuoNeb treatments. Continue with insulin for hyperglycemia secondary to steroid dependence. Lovenox for DVT prophylaxis. Overall prognosis remains guarded. Further recommendations to follow depending on the progress of the patient.
[2021-07-05 05:27] LABS: Appearance,Urine Clear (Clear); Bilirubin,Urine Negative (Negative); Blood,Urine Negative (Negative); Color,Urine Light Yellow; Glucose,Urine (UA) Negative (Negative); Ketones,Urine Trace (Negative); Leukocyte Esterase,Urine Negative (Negative); Nitrite,Urine Negative (Negative); Protein,Urine Negative (Negative); Specific Gravity,Urine 1.011 (1.001-1.035); Urobilinogen,Urine <2.0 mg/dL (<2.0)
[2021-07-05 06:21] LABS: Glucose,Whole Blood 51 mg/dL (75-99)
[2021-07-05] MEDS: PANTOPRAZOLE 40 MG TABLET PO SCH (06:24)
[2021-07-05 06:38] LABS: Glucose,Whole Blood 59 mg/dL (75-99)
[2021-07-05 06:54] LABS: Glucose,Whole Blood 85 mg/dL (75-99)
[2021-07-05] MEDS: SYMBICORT 160-4.5 MCG INHALER INHALATION SCH ×2 (07:29→20:35)
[2021-07-05] MEDS: IPRATROPIUM-ALBUTEROL 3 ML NEB INHALATION SCH ×3 (07:29→20:35)
--- NOTE | 2021-07-05 08:13 | XR ---
EXAMINATION TYPE: XR chest 1V portable DATE OF EXAM: 07/05/2021 Comparison: 07/02/2021 Clinical History: 66-year-old female left lower lobe pneumonia Findings: Right anterior chest wall injection port with catheter tip in the right atrium. Low lung volumes with elevated hemidiaphragms partially obscuring the cardiac margins. Interstitial prominence shows some improvement. Left mid and lower lung consolidation is also improving. Impression: Limited due to low lung volumes and hypoventilatory changes. Left mid and lower lung consolidation is improving.
[2021-07-05] MEDS: INSULIN ASPART (NovoLOG) 100 UNIT/ML VIAL SQ SCH ×7 (08:42→22:13)
[2021-07-05] MEDS: SODIUM CHLORIDE 0.9% 1,000 ML IV SCH (08:42)
[2021-07-05 08:44] LABS: Glucose,Whole Blood 81 mg/dL (75-99)
[2021-07-05] MEDS: predniSONE 20 MG TAB PO SCH (08:51)
[2021-07-05] MEDS: ENOXAPARIN 40 MG/0.4 ML SYRINGE SQ SCH (08:51)
[2021-07-05 09:28] LABS: African American GFR (CKD) >90 (>60 ml/min/1.73 sqM); Anion Gap 7 mmol/L; Blood Urea Nitrogen 16 mg/dL (7-17); Calcium 8.3 mg/dL (8.4-10.2); Carbon Dioxide 21 mmol/L (22-30); Chloride 111 mmol/L (98-107); Glucose 76 mg/dL (74-99); Magnesium 2.2 mg/dL (1.6-2.3); Non-African American GFR(CKD) >90 (>60 ml/min/1.73 sqM); Potassium 3.6 mmol/L (3.5-5.1); Sodium 139 mmol/L (137-145)
[2021-07-05 09:48] LABS: Anisocytosis Slight; Basophils % (A) 0 %; Eosinophils # (A) 0.1 k/uL (0-0.7); Eosinophils % (A) 1 %; HCT 34.1 % (34.0-46.0); HGB 10.5 gm/dL (11.4-16.0); Hypochromasia Marked; Lymphocytes # (A) 1.5 k/uL (1.0-4.8); Lymphocytes % (A) 15 %; MCH 21.9 pg (25.0-35.0); MCHC 30.7 g/dL (31.0-37.0); MCV 71.3 fL (80.0-100.0); Mean Platelet Volume 8.2; Microcytosis Moderate; Monocytes # (A) 0.6 k/uL (0-1.0); Monocytes % (A) 6 %; Neutrophils # (A) 7.8 k/uL (1.3-7.7); Neutrophils % (A) 76 %; Platelet Count 201 k/uL (150-450); Poikilocytosis Slight; RBC 4.78 m/uL (3.80-5.40); RDW 17.7 % (11.5-15.5); WBC 10.2 k/uL (3.8-10.6)
[2021-07-05 11:37] LABS: Glucose,Whole Blood 88 mg/dL (75-99)
[2021-07-05] MEDS: LEVOFLOXACIN 750MG-D5W PMX 750 MG in DEXTROSE/WATER 1 150ML.BAG IVPB SCH (12:28)
--- NOTE | 2021-07-05 13:30 | P.PN ---
Subjective Progress Note Date: 07/05/21 On today's evaluation, 07/05/2021, Fernanda's looking well. She is on room air oxygen. She is not giving any significant respiratory distress. I repeated the chest x-ray today and there is interval improvement in the left lower lobe consolidation. Note that her urine came back negative and there is no evidence of an underlying urine checked infection. She is taking antibiotics and she is still weak. She is tolerating diet. She is using incentive spirometer. She is also on room air oxygen for now. She is weak. She has a walker with her at all times and she has a very good social support system at home. Objective - Vital Signs Vital signs: Vital Signs Temp 97.9 F 07/05/21 12:00 Pulse 85 07/05/21 12:00 Resp 18 07/05/21 12:00 BP 131/63 07/05/21 12:00 Pulse Ox 96 07/05/21 12:00 Intake & Output 07/04/21 07/05/21 07/05/21 18:59 06:59 18:59 Intake Total 460 240 Output Total 900 3001 Balance -440 -2761 Weight 56 kg Intake: Intake, IV Titration 340 240 Amount Levofloxacin 750Mg-D5w 100 Pmx 750 mg In Dextrose/ Water 1 150ml.bag @ 100 mls/hr IVPB Q24H [facility] Rx#: [id number] Sodium Chloride 0.9% 1, 240 240 000 ml @ 20 mls/hr IV . Q24H [facility] Rx#:[id number] Oral 120 Output: Urine 900 1500 Straight 1500 Post Void Residual 1500 Stool 1 Other: Voiding Method External Catheter External Catheter External Catheter # Voids 1 # Bowel Movements 1 - Exam GENERAL EXAM: Alert, very pleasant, 58-year-old white female, oriented 3, on R A oxygen with pulse ox of 94% with diffuse bruising of her face, bridge of the nose, cheeks, and forehead from hitting her face on the dashboard comfortable in no apparent distress. HEAD: Normocephalic/atraumatic. Diffuse bruising on the face EYES: Normal reaction of pupils, equal size. Conjunctiva pink, sclera white. NOSE: Clear with pink turbinates. THROAT: No erythema or exudates. NECK: No masses, no JVD, no thyroid enlargement, no adenopathy. CHEST: No chest wall deformity. Symmetrical expansion. LUNGS: Equal air entry with no crackles, wheeze, rhonchi or dullness. CVS: Regular rate and rhythm, normal S1 and S2, no gallops, no murmurs, no rubs ABDOMEN: Soft, nontender. No hepatosplenomegaly, normal bowel sounds, no guarding or rigidity. EXTREMITIES: No clubbing, no edema, no cyanosis, 2+ pulses and upper and lower extremities. MUSCULOSKELETAL: Muscle strength and tone normal. SPINE: No scoliosis or deformity SKIN: No rashes CENTRAL NERVOUS SYSTEM: Alert and oriented -3. No focal deficits, tone is normal in all 4 extremities. PSYCHIATRIC: Alert and oriented -3. Appropriate affect. Intact judgment and insight. - Labs CBC & Chem 7: 07/05/21 08:46 07/05/21 08:46 Labs: Abnormal Lab Results - Last 24 Hours (Table) 07/04/21 07/05/21 07/05/21 Range/Units 16:32 05:10 06:19 Hgb (11.4-16.0) gm/dL MCV (80.0-100.0) fL MCH (25.0-35.0) pg MCHC (31.0-37.0) g/dL RDW (11.5-15.5) % Neutrophils # (1.3-7.7) k/uL Chloride (98-107) mmol/L Carbon Dioxide (22-30) mmol/L POC Glucose (mg/dL) 171 H 51 L (75-99) mg/dL Calcium (8.4-10.2) mg/dL Urine Ketones Trace H (Negative) 07/05/21 07/05/21 07/05/21 Range/Units 06:38 08:46 08:46 Hgb 10.5 L (11.4-16.0) gm/dL MCV 71.3 L (80.0-100.0) fL MCH 21.9 L (25.0-35.0) pg MCHC 30.7 L (31.0-37.0) g/dL RDW 17.7 H (11.5-15.5) % Neutrophils # 7.8 H (1.3-7.7) k/uL Chloride 111 H (98-107) mmol/L Carbon Dioxide 21 L (22-30) mmol/L POC Glucose (mg/dL) 59 L (75-99) mg/dL Calcium 8.3 L (8.4-10.2) mg/dL Urine Ketones (Negative) Microbiology - Last 24 Hours (Table) 07/02/21 15:51 Blood Culture - Preliminary Blood No Growth after 48 hours Assessment and Plan Plan: #1 lower lobe pneumonia, mildly elevated procal level, with secondary Generalized weakness and confusion, clinically improving and the patient's left lower lobe pneumonia is improving and the patient had a follow-up chest x-ray that showed improved aeration of the left lung base. #2. Acute kidney injury, recovered #3. Possible left lower lobe pneumonia or atelectasis. COVID-19 PCR was negative #4. Intermediate probability VQ scan, low suspicion for pulmonary embolism #5. Mild exacerbation of chronic bronchial asthma, severe persistent #6. Recent COVID-19 pneumonia, recovered #7. Worsened overall general functional performance since COVID-19 infection, and recent urinary tract infection #8. History of hypogammaglobulinemia, on Gammagard infusions #9. Hyperlipidemia #10. Recurrent urinary tract infections #11. Chronic back pain #12. Obstructive sleep apnea, not requiring CPAP therapy currently, AHI is 11 #13. Primary fibromyalgia syndrome #14. Adrenal cortical insufficiency #15. Compression fractures of thoracic vertebra #16. Glaucoma #17. Iron deficiency anemia Plan: The patient can be potentially discharged home today She is on room air oxygen Continue Levaquin, completed total of 10 day course Symbicort Lovenox 30 mg daily for DVT prophylaxis Continue DuoNeb Maintaining safety precautions CXR from today was noted and there is improvement in aeration left lung base IS Clinically patient is improving, much more awake and alert, oriented 3, We'll continue to follow her clinical course I'll be seeing her in the office in a few weeks time. Her , Jonathan has provided excellent care and monitoring her condition. On a separate note, the patient is having some urinary retention. I was told by the nursing staff that she hasn't urinated. We will going to look at her bladder scan and decide if she is clear for discharge. She is at least urinate before she goes home.
--- NOTE | 2021-07-05 15:14 | P.GSCN ---
History of Present Illness Consult date: 07/05/21 History of present illness: 58-year-old female with multiple medical illnesses who was brought in the hospital several days ago because of lethargy and confusion. The medical illnesses are outlined in the medical history and physical as well as pulmonary consultation. Apparently has become evident that she is struggling to urinate and a catheter had been placed for 650 mL of urine. The patient is interviewed at the bedside. She seems somewhat confused although sometimes she does answer the questions. She has seen in the past but she is not aware of why . The chart will have to be reviewed in the office. There is no urinalysis on the chart. She does not give me history of recurrent infections incontinence hematuria I'll problems or gait problems. I am unsure as to how reliable this is. Review of Systems ROS unobtainable: due to mental status Past Medical History Past Medical History: Asthma, COPD, Diabetes Mellitus, Eye Disorder, Fibromyalgia, GERD/Reflux, Hyperlipidemia, Hypertension, Musculoskeletal Disorder, Pneumonia, Respiratory Disorder, Skin Disorder Additional Past Medical History / Comment(s): Bronchial asthma, tracheobr onchomalacia, common variable immunoglobulin deficiency. Chronic back problems. chronic steroid use, suspected component of adrenal insufficiency due to chronic steroid use. Hiatal hernia. PAST [employer] HISTORY: She has no history of STDs. Pneumonia / In ICU in [place] after Back surgery - March 2019. Mycobacterium gordonae soft tissue infection. cataracts, glaucoma, fibromyalgia, chronic pain, compression fracture of the spine. History of Any Multi-Drug Resistant Organisms: MRSA Year Discovered:: 2010 MDRO Source:: right hand Past Surgical History: Appendectomy, Back Surgery, Breast Surgery, Cholecystectomy, Tubal Ligation Additional Past Surgical History / Comment(s): MULT BRONCHS, WASHINGS, LAST 04/17/14. EXC [facility] CATARACT. BLEPHAROPLASTY/ R&L BREAST BIOPSIES; PORT A CATH IN LEFT CHEST-CHANGED TO RT CHEST,EXC MYCOBACTERIUM AREAS RT ARM 2011; UPPER TEETH EXTRACTED. RT SALPINGECTOMY/FALLOPIAN TUBE REMOVED, I&D BOIL.Jul [facility] EYE AND MUSCLE SURGERY; - mouth (bone) surgery. Pain pump insertion to left buttocks - October 2016. Colonoscopy 2014. Hiatal hernia surgeries 2014&2015. Back surgery (Decompresssion) - February 2019 Past Anesthesia/Blood Transfusion Reactions: Motion Sickness, Postoperative Nausea & Vomiting (PONV) Past Psychological History: Anxiety, Depression Additional Psychological History / Comment(s): . Lives in the family home with her . Not employed outside of the home. Lifelong nonsmoker. No significant history of alcohol use. No history of recreational drug use. No international travels. There are pet dogs in the home. There are still children in the home that they are responsible for. Smoking Status: Never smoker Past Alcohol Use History: None Reported Past Drug Use History: None Reported - Past Family History Mother Family Medical History: Cancer Additional Family Medical History / Comment(s): BREAST CANCER. Father Additional Family Medical History / Comment(s): r/t suicide Medications and Allergies Home Medications Medication Instructions Recorded Confirmed Type traZODone HCL 75 mg PO HS 09/10/16 07/02/21 History Fluticasone/Salmeterol [Advair Hfa 2 puff INHALATION RT-BID 04/09/19 07/02/21 History 230-21 Mcg Inhaler] ALPRAZolam [Xanax] 0.25 mg PO HS PRN 07/21/20 07/02/21 History Pantoprazole [Protonix] 40 mg PO DAILY 07/21/20 07/02/21 History Pravastatin Sodium [Pravachol] 10 mg PO HS 07/21/20 07/02/21 History Promethazine 6.25MG/5Ml [Phenergan 6.25 mg PO DIRECTED PRN 07/21/20 07/02/21 History Syrup] Acetaminophen Tab [Tylenol] 650 mg PO Q6HR PRN tab 07/27/20 07/02/21 Rx Denosumab [Prolia] 60 mg SQ Q180D 03/03/21 07/02/21 History Glucagon Emergency Kit 1 mg IM ONCE PRN 03/03/21 07/02/21 History Insulin Aspart [NovoLOG Flexpen] 6 units SQ AC-TID 03/03/21 07/02/21 History Insulin Glargine,Hum.rec.anlog 10 unit SQ HS 03/03/21 07/02/21 History [Lantus Solostar Pen] busPIRone HCL 30 mg PO BID 03/03/21 07/02/21 History ALPRAZolam [Xanax] 0.5 mg PO TID PRN 05/15/21 07/02/21 History Furosemide [Lasix] 40 mg PO TID 05/15/21 07/02/21 History HYDROcodone/APAP 7.5-325MG [[place] 1 tab PO Q4H PRN 05/15/21 07/02/21 History 7.5-325] Potassium Chloride [Klor-Con 20] 60 meq PO BID 05/15/21 07/02/21 History predniSONE 20 mg PO DAILY 05/15/21 07/02/21 History Ipratropium-Albuterol Nebulize 3 ml INHALATION RT-QID #120 ml 07/05/21 Rx [Duoneb 0.5 mg-3 mg/3 ml Soln] Levofloxacin [Levaquin] 750 mg PO DAILY 7 Days #7 tab 07/05/21 Rx Multivitamins, Thera [Multivitamin] 1 tab PO DAILY #30 tablet 07/05/21 Rx Spironolactone [Aldactone] 25 mg PO DAILY #30 07/05/21 07/02/21 Rx Allergies Allergy/AdvReac Type Severity Reaction Status Date / Time crisaborole [From Eucrisa] Allergy Rash/Hives Verified 07/02/21 13:57 cefuroxime axetil AdvReac Severe Abdominal Verified 07/02/21 13:57 [From Ceftin] Pain ciprofloxacin HCl AdvReac Severe Abdominal Verified 07/02/21 13:57 [From Cipro] Pain erythromycin base AdvReac Unknown Abdominal Verified 07/02/21 13:57 [Erythromycin Base] Pain sulfamethoxazole AdvReac Unknown Abdominal Verified 07/02/21 13:57 [From Bactrim] Pain trimethoprim [From Bactrim] AdvReac Unknown Abdominal Verified 07/02/21 13:57 Pain indomethacin sodium AdvReac severe Verified 07/02/21 13:57 [From Indocin] Confusion NSAIDS (Non-Steroidal AdvReac Dyspnea Verified 07/02/21 13:57 Anti-Inflamma Penicillins AdvReac Nausea & Verified 07/02/21 13:57 Vomiting Sulfa (Sulfonamide AdvReac Abdominal Verified 07/02/21 13:57 Antibiotics) Pain Surgical - Exam Vital Signs Temp Pulse Resp BP Pulse Ox 97.7 F 87 14 131/58 84 L 07/02/21 12:55 07/02/21 12:55 07/02/21 12:55 07/02/21 12:55 07/02/21 12:55 - General Multiple facial bruises chronically ill - Eyes PERRL - ENT no hearing loss - Neck trachea midline - Respiratory normal respiratory effort - Cardiovascular Rhythm: regular - Abdomen Abdomen: soft, non tender - Integumentary Multiple bruises. - Neurologic confused - Musculoskeletal Appearance of rheumatoid arthritis in her joints Results - Labs 07/05/21 08:46 07/05/21 08:46 Abnormal Lab Results - Last 24 Hours (Table) 07/04/21 07/05/21 07/05/21 Range/Units 16:32 05:10 06:19 Hgb (11.4-16.0) gm/dL MCV (80.0-100.0) fL MCH (25.0-35.0) pg MCHC (31.0-37.0) g/dL RDW (11.5-15.5) % Neutrophils # (1.3-7.7) k/uL Chloride (98-107) mmol/L Carbon Dioxide (22-30) mmol/L POC Glucose (mg/dL) 171 H 51 L (75-99) mg/dL Calcium (8.4-10.2) mg/dL Urine Ketones Trace H (Negative) 07/05/21 07/05/21 07/05/21 Range/Units 06:38 08:46 08:46 Hgb 10.5 L (11.4-16.0) gm/dL MCV 71.3 L (80.0-100.0) fL MCH 21.9 L (25.0-35.0) pg MCHC 30.7 L (31.0-37.0) g/dL RDW 17.7 H (11.5-15.5) % Neutrophils # 7.8 H (1.3-7.7) k/uL Chloride 111 H (98-107) mmol/L Carbon Dioxide 21 L (22-30) mmol/L POC Glucose (mg/dL) 59 L (75-99) mg/dL Calcium 8.3 L (8.4-10.2) mg/dL Urine Ketones (Negative) Microbiology - Last 24 Hours (Table) 07/02/21 15:51 Blood Culture - Preliminary Blood No Growth after 48 hours Diabetes panel 07/05/21 Range/Units 08:46 Sodium 139 (137-145) mmol/L Potassium 3.6 (3.5-5.1) mmol/L Chloride 111 H (98-107) mmol/L Carbon Dioxide 21 L (22-30) mmol/L BUN 16 (7-17) mg/dL Creatinine 0.58 (0.52-1.04) mg/dL Glucose 76 (74-99) mg/dL Calcium 8.3 L (8.4-10.2) mg/dL Calcium panel 07/05/21 Range/Units 08:46 Calcium 8.3 L (8.4-10.2) mg/dL Pituitary panel 07/05/21 Range/Units 08:46 Sodium 139 (137-145) mmol/L Potassium 3.6 (3.5-5.1) mmol/L Chloride 111 H (98-107) mmol/L Carbon Dioxide 21 L (22-30) mmol/L BUN 16 (7-17) mg/dL Creatinine 0.58 (0.52-1.04) mg/dL Glucose 76 (74-99) mg/dL Calcium 8.3 L (8.4-10.2) mg/dL Adrenal panel 07/05/21 Range/Units 08:46 Sodium 139 (137-145) mmol/L Potassium 3.6 (3.5-5.1) mmol/L Chloride 111 H (98-107) mmol/L Carbon Dioxide 21 L (22-30) mmol/L BUN 16 (7-17) mg/dL Creatinine 0.58 (0.52-1.04) mg/dL Glucose 76 (74-99) mg/dL Calcium 8.3 L (8.4-10.2) mg/dL Assessment and Plan Assessment: Impression: Urinary retention and acute versus chronic. Probable recurrent urine infection however no urinalysis was obtained during this hospital. Multiple serious medical issues Recommendation: There is nothing urologic to be done at this point in time. If she is unable to go given her overall mental status she better served with an indwelling catheter then intermittent catheterization. She probably need further evaluation as an outpatient if her mental status improves.
[2021-07-05 16:02] LABS: Amorphous Sediment,Urine Rare /hpf; Appearance,Urine Cloudy (Clear); Bacteria,Urine Rare /hpf; Bilirubin,Urine Negative (Negative); Blood,Urine Trace (Negative); Color,Urine Yellow; Glucose,Urine (UA) Negative (Negative); Ketones,Urine 2+ (Negative); Leukocyte Esterase,Urine Trace (Negative); Mucus,Urine Few /hpf; Nitrite,Urine Negative (Negative); Protein,Urine Negative (Negative); RBC,Urine 5 /hpf (0-5); Specific Gravity,Urine 1.019 (1.001-1.035); Squamous Epithelial Cell,Urine <1 /hpf (0-4); Urobilinogen,Urine <2.0 mg/dL (<2.0); WBC,Urine 6 /hpf (0-5)
[2021-07-05 16:15] LABS: Glucose,Whole Blood 161 mg/dL (75-99)
[2021-07-05] MEDS: ONDANSETRON 4 MG/2 ML VIAL IVP PRN (16:45)
--- NOTE | 2021-07-05 17:17 | PN ---
PROGRESS NOTE DATE OF SERVICE: 07/05/2021 This 66-year-old woman with a past medical history of multiple medical problems, being followed by Dr. Kothari in the outpatient setting, was admitted with generalized weakness and tiredness. The patient apparently had a fall and had a contusion of the face also. The patient had recent UTI and the patient was thought to have possible pneumonia. Patient also had a recent bout of COVID-19 infection which caused some confusion, according to the family. The patient also had urinary retention, and Dr. Villafana has seen the patient. UA has been sought. There is no history of any fever, rigor or chills at this time. Past medical history reviewed. REVIEW OF SYSTEMS: ENT: As mentioned earlier. CARDIOVASCULAR SYSTEM: No angina. RESPIRATION: As mentioned earlier. GI: As mentioned earlier. : No dysuria. NERVOUS SYSTEM: No numbness, weakness. CURRENT MEDICATIONS: Reviewed. They include Tylenol, DuoNeb, Symbicort, Lovenox, NovoLog, Levaquin. Doses are reviewed. PHYSICAL EXAMINATION: Patient alert and oriented x3. Pulse 98, blood pressure 141/70, respiration 18, temperature 98.6, pulse ox 94% on room air. HEENT: Conjunctivae normal. Significant discoloration of the face, especially on the left side present. NECK: No jugular venous distention. CARDIOVASCULAR: S1, S2 muffled. RESPIRATION: Breath sounds diminished at the bases. A few rhonchi. ABDOMEN: Soft. NERVOUS SYSTEM: Diffusely weak. LABS: WBC 10.2, hemoglobin 10.5. ASSESSMENT: 1. Possible bilateral pneumonia with sepsis, present on admission, possibly Gram- negative. 2. Possible acute urinary tract infection, present on admission. 3. Change in mental status, acute metabolic encephalopathy. 4. Urinary retention, possibly acute versus chronic. 5. Possible acute urinary tract infection. 6. Acute kidney injury. 7. Bronchial asthma, acute exacerbation. 8. Renal insufficiency. 9. History of recent COVID-19 pneumonia. 10.History of iron deficiency anemia. 11.Generalized debility. 12.Cushingoid features. 13.Facial contusion. 14.Hyperlipidemia. 15.Diabetes mellitus, type 2. 16.Recurrent urinary tract infection. 17.Chronic low back pain. 18.Obstructive sleep apnea. 19.Compression fracture of thoracic vertebra. 20.Glaucoma. 21.Mild protein-calorie malnutrition. 22.Hypokalemia. 23.Elevated D-dimer without any evidence of pulmonary embolism with low to intermediate probability on V/Q scan. RECOMMENDATIONS AND DISCUSSION: I recommend to continue current medications, continue with symptomatic treatment. The CT scan of the brain and facial bones showed no fractures. Chronic small-vessel ischemia was noted. Prognosis is guarded. Further recommendations to follow. As mentioned earlier, UA with micro and continue to monitor. Continue the rest of the medications. MMODL / IJN: [id number] /
[2021-07-05] MEDS: TAMSULOSIN 0.4 MG CAP.ER.24H PO SCH (17:51)
[2021-07-05] MEDS: PRAVASTATIN SODIUM 20 MG TAB PO SCH (20:26)
[2021-07-05 20:28] LABS: Glucose,Whole Blood 121 mg/dL (75-99)
[2021-07-05] MEDS: INSULIN DETEMIR (LEVEMIR) 100 UNIT/ML SYR SQ SCH (22:14)
[2021-07-06] MEDS: ONDANSETRON 4 MG/2 ML VIAL IVP PRN ×2 (01:12→09:17)
[2021-07-06 06:24] LABS: Glucose,Whole Blood 97 mg/dL (75-99)
[2021-07-06] MEDS: SODIUM CHLORIDE 0.9% 1,000 ML IV SCH (06:29)
[2021-07-06] MEDS: INSULIN ASPART (NovoLOG) 100 UNIT/ML VIAL SQ SCH ×7 (06:29→20:06)
[2021-07-06] MEDS: PANTOPRAZOLE 40 MG TABLET PO SCH (06:31)
[2021-07-06] MEDS: SYMBICORT 160-4.5 MCG INHALER INHALATION SCH ×2 (07:08→19:34)
[2021-07-06] MEDS: IPRATROPIUM-ALBUTEROL 3 ML NEB INHALATION SCH ×4 (07:09→19:34)
[2021-07-06] MEDS: ENOXAPARIN 40 MG/0.4 ML SYRINGE SQ SCH (09:09)
[2021-07-06] MEDS: predniSONE 20 MG TAB PO SCH (09:10)
[2021-07-06 11:42] LABS: Glucose,Whole Blood 119 mg/dL (75-99)
[2021-07-06 12:35] LABS: Anisocytosis Slight; Basophils % (A) 0 %; Eosinophils # (A) 0.1 k/uL (0-0.7); Eosinophils % (A) 1 %; HCT 36.2 % (34.0-46.0); HGB 10.6 gm/dL (11.4-16.0); Hypochromasia Marked; Lymphocytes # (A) 0.9 k/uL (1.0-4.8); Lymphocytes % (A) 7 %; MCH 21.5 pg (25.0-35.0); MCHC 29.2 g/dL (31.0-37.0); MCV 73.8 fL (80.0-100.0); Mean Platelet Volume 7.6; Microcytosis Moderate; Monocytes # (A) 0.7 k/uL (0-1.0); Monocytes % (A) 5 %; Neutrophils # (A) 11.6 k/uL (1.3-7.7); Neutrophils % (A) 85 %; Platelet Count 215 k/uL (150-450); Poikilocytosis Slight; RBC 4.91 m/uL (3.80-5.40); WBC 13.6 k/uL (3.8-10.6)
[2021-07-06 12:54] LABS: African American GFR (CKD) >90 (>60 ml/min/1.73 sqM); Anion Gap 12 mmol/L; Blood Urea Nitrogen 20 mg/dL (7-17); Calcium 8.3 mg/dL (8.4-10.2); Carbon Dioxide 17 mmol/L (22-30); Chloride 109 mmol/L (98-107); Glucose 139 mg/dL (74-99); Non-African American GFR(CKD) >90 (>60 ml/min/1.73 sqM); Potassium 3.9 mmol/L (3.5-5.1); Sodium 138 mmol/L (137-145)
[2021-07-06] MEDS ORDERED: ONDANSETRON 4 MG/2 ML VIAL IVP PRN (13:12)
[2021-07-06] MEDS: LEVOFLOXACIN 750MG-D5W PMX 750 MG in DEXTROSE/WATER 1 150ML.BAG IVPB SCH (13:20)
[2021-07-06] MEDS: METOCLOPRAMIDE 5 MG/ML 2 ML VIAL IVP PRN ×2 (13:43→20:42)
[2021-07-06 16:35] LABS: Glucose,Whole Blood 161 mg/dL (75-99)
--- NOTE | 2021-07-06 16:44 | P.PN ---
Subjective Progress Note Date: 07/06/21 Principal diagnosis: Weakness 66-year-old female patient with multiple medical conditions, including COPD/severe chronic bronchial asthma, on home oxygen, and maintenance dose of prednisone, diabetes mellitus type 2, fibromyalgia, hypertension, hyperlipidemia, recurrent urinary tract infections, recent COVID-19 pneumonia, history of common variable immunoglobulin deficiency on IVIG infusions, history of adrenal insufficiency, who came into the emergency department with her reina aquino on 07/02/2021 for evaluation of weakness. Patient has been increasingly more generally debilitated, she has been lethargic, she has had recent history of urinary tract infections causing encephalopathy. She is currently more awake and alert, she is oriented 3. She follows with Dr. Kothari in the pulmonary clinic, she was recently seen in the office on 06/21/2021. COVID-19 infection was also thought to have affected her mentation and overall functional level. Patient has been more forgetful, confused, weak and has had some occasional stuttering. Patient has a history of severe persistent bronchial asthma, she is on home oxygen, she is on a combination of Advair, Ventolin, and nebulized ipratropium at home, most recently she has developed some oral thrush and her Advair was placed on hold. She was also referred to Dr. Almeida an outpatient basis for ongoing fatigue, weakness, and confusion. MRI of the brain that was completing outpatient basis was negative. Chest x-ray was completing on admission showing pulmonary interstitial and airspace edema, and infiltrate in the left lower lobe, and probable bilateral pleural effusions. Patient reports no fever or chills, reports slight chest congestion, but no chest discomfort, no hemoptysis. Her white count is elevated at 17 on admission, hemoglobin is 9.2, neutrophils are 50.8, lymphocytes 0.5, d-dimer was 1.59, sodium was 138, potassium is 5.6, chloride was 105, CO2 was 28, BUN is 39, creatinine was 1.3, with evidence of acute kidney injury, lactic acid was normal at 0.7, troponin is less than 0.012, ammonia level was less than 9, proBNP was normal at 96, pro calcitonin level was elevated at 0.41, urinalysis showed no evidence of infection, urine drug screen showed opiates, tricyclic antidepressants, and benzodiazepines, serum alcohol level was less than 10, COVID-19 PCR was negative. Patient was started on Levaquin for empiric antibiotic coverage, breathing treatments, she was hydrated with IV fluids. Blood cultures have been sent. Today's exam she is much more awake and alert, she is on heparin infusion for elevated d-dimer, and VQ scan showing low to intermediate probability of pulmonary embolism. CT of the brain showed mild atrophy, no acute abnormality. CT scan of the facial bones showed no fracture. This was completed related to bruising on her face related to patient hitting her face on the dashboard when she was lethargic and confused. On today's evaluation of 07/04/2021, the patient is awake and alert and she is talking to me normally. She is complaining of pain. I reviewed the chest x-ray and the patient had a consolidation of the left lower lobe consistent with pneumonia and the patient is currently on Levaquin. UA was negative. Overnight he has been was also negative. Her main complaint is chronic pain. The pro calcitonin LEVEL IS AT 0.41. CREATININE IS NORMAL. ELECTROLYTES ARE NORMAL. PROBNP LEVEL IS NORMAL. D-DIMER WAS AT 1.59. OTHERWISE, THE PATIENT IS DOING WELL. SHE HAS A BRUISE ACROSS HER FACE RELATED TO A RECENT BLUNT TRAUMA. MENTAL STATUS IS MORE STABLE. SHE IS ON LOVENOX FOR DVT PROPHYLAXIS. SHE IS CHRONICALLY ON PREDNISONE 20 MG BY MOUTH DAILY. On today's evaluation, 07/05/2021, Fernanda's looking well. She is on room air oxygen. She is not giving any significant respiratory distress. I repeated the chest x-ray today and there is interval improvement in the left lower lobe consolidation. Note that her urine came back negative and there is no evidence of an underlying urine checked infection. She is taking antibiotics and she is still weak. She is tolerating diet. She is using incentive spirometer. She is also on room air oxygen for now. She is weak. She has a walker with her at all times and she has a very good social support system at home. On 07/06/2021 patient seen in follow-up on selective care unit, room air pulse ox is 97%, she is afebrile, no difficulty breathing, no cough, however patient is still generally very weak. She has been nauseous. Yesterday she was having urinary retention, and full catheter was placed back in, urology consultation was obtained and outpatient follow-up was recommended. History of chest x-ray showed low lung volumes and hypoventilatory changes, left mid and lower lung con solidation was improving. Patient is on Levaquin for antibiotic coverage, today's labs have been reviewed, white blood cell count is 13.6, slightly increased from yesterday, but overall improved from admission, hemoglobin is 10.6, sodium is 138, potassium is 3.9, chloride is 109, CO2 is 17, BUN is 20, creatinine 0.58. Cultures have shown no growth. Lung sounds reveal no crackles, no wheezing, patient remains on Symbicort, DuoNeb nebulized treatments, and she is on maintenance dose prednisone. Objective - Vital Signs Vital signs: Vital Signs Temp 98.4 F 07/06/21 12:00 Pulse 99 07/06/21 14:00 Resp 17 07/06/21 14:00 BP 130/66 07/06/21 12:00 Pulse Ox 97 07/06/21 12:00 Intake & Output 07/05/21 07/06/21 07/06/21 18:59 06:59 18:59 Intake Total 320 240 Output Total 651 301 377 Balance -331 -61 -377 Weight 50 kg Intake: IV 320 Levofloxacin 750Mg-D5w 100 Pmx 750 mg In Dextrose/ Water 1 150ml.bag @ 100 mls/hr IVPB Q24H DIO Rx#: [id number] Sodium Chloride 0.9% 1, 220 000 ml @ 20 mls/hr IV . Q24H DIO Rx#:[id number] Intake, IV Titration 240 Amount Sodium Chloride 0.9% 1, 240 000 ml @ 20 mls/hr IV . Q24H DIO Rx#:[id number] Output: Urine 650 300 375 Uretheral ([place]) 650 Stool 1 1 2 Other: Voiding Method External Catheter Indwelling Catheter Indwelling Catheter # Bowel Movements 1 - Exam GENERAL EXAM: Alert, very pleasant, 58-year-old white female, oriented 3, on R A oxygen with pulse ox of 94% with diffuse bruising of her face, bridge of the nose, cheeks, and forehead from hitting her face on the dashboard comfortable in no apparent distress. HEAD: Normocephalic/atraumatic. Diffuse bruising on the face EYES: Normal reaction of pupils, equal size. Conjunctiva pink, sclera white. NOSE: Clear with pink turbinates. THROAT: No erythema or exudates. NECK: No masses, no JVD, no thyroid enlargement, no adenopathy. CHEST: No chest wall deformity. Symmetrical expansion. LUNGS: Equal air entry with no crackles, wheeze, rhonchi or dullness. CVS: Regular rate and rhythm, normal S1 and S2, no gallops, no murmurs, no rubs ABDOMEN: Soft, nontender. No hepatosplenomegaly, normal bowel sounds, no guarding or rigidity. EXTREMITIES: No clubbing, no edema, no cyanosis, 2+ pulses and upper and lower extremities. MUSCULOSKELETAL: Muscle strength and tone normal. SPINE: No scoliosis or deformity SKIN: No rashes CENTRAL NERVOUS SYSTEM: Alert and oriented -3. No focal deficits, tone is normal in all 4 extremities. PSYCHIATRIC: Alert and oriented -3. Appropriate affect. Intact judgment and insight. - Labs CBC & Chem 7: 07/06/21 12:20 07/06/21 12:20 Labs: Abnormal Lab Results - Last 24 Hours (Table) 07/05/21 07/06/21 07/06/21 Range/Units 20:27 11:40 12:20 WBC 13.6 H (3.8-10.6) k/uL Hgb 10.6 L (11.4-16.0) gm/dL MCV 73.8 L (80.0-100.0) fL MCH 21.5 L (25.0-35.0) pg MCHC 29.2 L (31.0-37.0) g/dL RDW 18.0 H (11.5-15.5) % Neutrophils # 11.6 H (1.3-7.7) k/uL Lymphocytes # 0.9 L (1.0-4.8) k/uL Chloride (98-107) mmol/L Carbon Dioxide (22-30) mmol/L BUN (7-17) mg/dL Glucose (74-99) mg/dL POC Glucose (mg/dL) 121 H 119 H (75-99) mg/dL Calcium (8.4-10.2) mg/dL 07/06/21 07/06/21 Range/Units 12:20 16:31 WBC (3.8-10.6) k/uL Hgb (11.4-16.0) gm/dL MCV (80.0-100.0) fL MCH (25.0-35.0) pg MCHC (31.0-37.0) g/dL RDW (11.5-15.5) % Neutrophils # (1.3-7.7) k/uL Lymphocytes # (1.0-4.8) k/uL Chloride 109 H (98-107) mmol/L Carbon Dioxide 17 L (22-30) mmol/L BUN 20 H (7-17) mg/dL Glucose 139 H (74-99) mg/dL POC Glucose (mg/dL) 161 H (75-99) mg/dL Calcium 8.3 L (8.4-10.2) mg/dL Microbiology - Last 24 Hours (Table) 07/02/21 15:51 Blood Culture - Preliminary Blood No Growth after 72 hours Assessment and Plan Plan: Assessment: #1. Acute left lower lobe pneumonia. COVID-19 PCR was negative #2. Generalized weakness, confusion, acute on chronic, possibly related to recent history of urinary tract infection which has cleared, and possibility of left lower lobe pneumonia not completely excluded #3. Acute kidney injury #4. Intermediate probability VQ scan, low suspicion for pulmonary embolism #5. Mild exacerbation of chronic bronchial asthma, severe persistent #6. Recent COVID-19 pneumonia, recovered #7. Worsened overall general functional performance since COVID-19 infection, and recent urinary tract infection #8. History of hypogammaglobulinemia, on Gammagard infusions #9. Hyperlipidemia #10. Recurrent urinary tract infections #11. Chronic back pain #12. Obstructive sleep apnea, not requiring CPAP therapy currently, AHI is 11 #13. Primary fibromyalgia syndrome #14. Adrenal cortical insufficiency #15. Compression fractures of thoracic vertebra #16. Glaucoma #17. Iron deficiency anemia #18. Urinary retention requiring placement of [place] catheter back in, urology services are following Plan: Continue current medical treatment Continue Levaquin Continue DuoNeb Yesterday's chest x-ray has shown improving left mid and lower lung consolidation Overall patient is generally weak, she may need rehab placement She can be considered for discharge possibly to subacute rehab in the next 24 hours if remains stable I performed a history & physical examination of the patient and discussed their management with my nurse practitioner, Eloise Hicks. I reviewed the nurse practitioner's note and agree with the documented findings and plan of care. Lung sounds are positive for dim breath sounds throughout the lung wallace. The findings and the impression was discussed with the patient. I attest to the documentation by the nurse practitioner. Time with Patient: Less than 30
[2021-07-06] MEDS: TAMSULOSIN 0.4 MG CAP.ER.24H PO SCH (18:07)
[2021-07-06 20:05] LABS: Glucose,Whole Blood 132 mg/dL (75-99)
[2021-07-06] MEDS: INSULIN DETEMIR (LEVEMIR) 100 UNIT/ML SYR SQ SCH (20:06)
[2021-07-06] MEDS: PRAVASTATIN SODIUM 20 MG TAB PO SCH (20:33)
[2021-07-06] MEDS: MULTIVITAMINS, THERA 1 EACH TAB PO SCH (20:33)
[2021-07-06] MEDS: FOLIC ACID 1 MG TAB PO SCH (20:34)
[2021-07-06] MEDS: THIAMINE 100 MG TAB PO SCH (20:34)
--- NOTE | 2021-07-06 20:43 | PN ---
PROGRESS NOTE DATE OF SERVICE: 07/06/2021 This 66-year-old woman who was admitted with multiple medical problems, including change in mental status and possible bilateral pneumonia, is being closely monitored. Patient also is suspected to have acute UTI. Patient had COVID-19 infection and prolonged mental status changes supposed to be secondary to COVID fog and post-COVID syndrome and long haul COVID, according to Dr. Almeida, the neurologist, who evaluated the patient as an outpatient. Currently the patient is confused on and off. Patient is extremely weak and unable to perform the activities of daily living, according to her , independently. The patient also has urinary retention. Moscoso catheter also has been placed. The patient is being closely monitored by Dr. Kothari and Dr. Villafana at this time. Possible ECF rehab is being also considered. Most recent chest x-ray which was reviewed personally by me showed some lung lesions, but apparently improving slightly. Past medical history reviewed. REVIEW OF SYSTEMS: CARDIOVASCULAR SYSTEM: No angina. RESPIRATION: As mentioned earlier. GI: As mentioned earlier. : No dysuria. NERVOUS SYSTEM: No numbness, weakness. CURRENT MEDICATIONS: Noted. Tylenol, DuoNeb, Artificial Tears, Symbicort, Lovenox, NovoLog. PHYSICAL EXAMINATION: Patient is alert, oriented x2. Pulse is 106, blood pressure 153/67, respiration 18, temperature 97.8, pulse ox 94% on room air. HEENT: Conjunctivae normal. NECK: No jugular venous distention. CARDIOVASCULAR: S1, S2 muffled. RESPIRATION: Breath sounds diminished at the bases. A few scattered rhonchi and crackles. ABDOMEN: Soft, nontender. LEGS: No edema. No swelling. NERVOUS SYSTEM: Diffusely weak. LABS: WBC 13.6. Sodium 138, potassium 3.9. ASSESSMENT: 1. Acute bilateral pneumonia with sepsis, present on admission, with possibly Gram- negative. 2. Possible acute urinary tract infection, present on admission. 3. Change in mental status, acute metabolic encephalopathy. 4. Urinary retention, possibly acute versus chronic. 5. Acute kidney injury. 6. Severe gait dysfunction and asthenia. 7. Bronchial asthma, acute exacerbation, with chronic bronchial asthma as baseline. 8. Renal insufficiency. 9. History of recent COVID-19 pneumonia. 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 11.History of iron deficiency anemia. 12.Generalized debility. 13.Cushingoid features. 14.Facial contusion. 15.Hyperlipidemia. 16.Diabetes mellitus, type 2. 17.Recurrent urinary tract infections. 18.Chronic low back pain. 19.Obstructive sleep apnea. 20.Compression fracture of thoracic vertebra. 21.Glaucoma. 22.Mild protein-calorie malnutrition. 23.Hypokalemia. 24.Elevated D-dimer without any evidence of pulmonary embolism with a low to intermediate probability on the V/Q scan. 25.FULL CODE. RECOMMENDATIONS AND DISCUSSION: In this 66-year-old woman who presented with multiple complex medical issues, I would recommend to continue the current medications, continue symptomatic treatment. The patient's white count is still elevated, but the blood culture has been negative. The repeat UA shows not much findings. Otherwise, the patient is currently on Levaquin. Will recommend to continue the Levaquin along with the other medications. PT/OT evaluation. Also recommend ECF rehab because of the extremely high risk of fall and multiple complex medical issues involved. Prognosis guarded. Further recommendations to follow. MMODL / IJN: [id number] /
[2021-07-07] MEDS: SODIUM CHLORIDE 0.9% 1,000 ML IV SCH (05:01)
[2021-07-07 06:14] LABS: Glucose,Whole Blood 113 mg/dL (75-99)
[2021-07-07] MEDS: INSULIN ASPART (NovoLOG) 100 UNIT/ML VIAL SQ SCH ×7 (06:14→20:01)
[2021-07-07] MEDS: PANTOPRAZOLE 40 MG TABLET PO SCH (06:16)
[2021-07-07] MEDS: IPRATROPIUM-ALBUTEROL 3 ML NEB INHALATION SCH ×4 (07:24→19:43)
[2021-07-07] MEDS: SYMBICORT 160-4.5 MCG INHALER INHALATION SCH ×2 (07:24→19:43)
[2021-07-07] MEDS: ENOXAPARIN 40 MG/0.4 ML SYRINGE SQ SCH (09:02)
[2021-07-07] MEDS: predniSONE 20 MG TAB PO SCH (09:02)
[2021-07-07] MEDS ORDERED: bisacodyL 10 MG SUPP RECTAL PRN (09:34)
[2021-07-07 10:47] LABS: Anisocytosis Slight; Basophils % (A) 0 %; Eosinophils # (A) 0.1 k/uL (0-0.7); Eosinophils % (A) 1 %; HCT 36.3 % (34.0-46.0); HGB 10.7 gm/dL (11.4-16.0); Hypochromasia Marked; Lymphocytes # (A) 1.6 k/uL (1.0-4.8); Lymphocytes % (A) 15 %; MCH 21.6 pg (25.0-35.0); MCHC 29.6 g/dL (31.0-37.0); MCV 72.9 fL (80.0-100.0); Mean Platelet Volume 9.1; Microcytosis Moderate; Monocytes # (A) 0.8 k/uL (0-1.0); Monocytes % (A) 7 %; Neutrophils # (A) 8.5 k/uL (1.3-7.7); Neutrophils % (A) 75 %; Platelet Count 258 k/uL (150-450); Poikilocytosis Slight; RBC 4.98 m/uL (3.80-5.40); RDW 18.3 % (11.5-15.5); WBC 11.3 k/uL (3.8-10.6)
[2021-07-07 10:58] LABS: Glucose,Whole Blood 242 mg/dL (75-99)
[2021-07-07 11:08] LABS: African American GFR (CKD) >90 (>60 ml/min/1.73 sqM); Anion Gap 12 mmol/L; Blood Urea Nitrogen 20 mg/dL (7-17); Calcium 8.7 mg/dL (8.4-10.2); Carbon Dioxide 16 mmol/L (22-30); Chloride 111 mmol/L (98-107); Glucose 117 mg/dL (74-99); Non-African American GFR(CKD) >90 (>60 ml/min/1.73 sqM); Potassium 3.4 mmol/L (3.5-5.1); Sodium 139 mmol/L (137-145)
[2021-07-07] MEDS ORDERED: NA PHOS,M-B/NA PHOS,DI-BA 133 ML ENEMA RECTAL STA (11:15)
[2021-07-07] MEDS ORDERED: Potassium Replacement Protocol 1 EACH MISC MISCELLANE PRN (11:27)
[2021-07-07] MEDS ORDERED: LEVOFLOXACIN 750 MG TAB PO SCH (12:00)
[2021-07-07] MEDS: POTASSIUM CHLORIDE 10 MEQ in WATER FOR INJECTION 1 100ML.BAG IVPB SCH ×4 (12:38→18:47)
--- NOTE | 2021-07-07 14:58 | P.PN ---
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 Patient has been increasingly more generally debilitated, she has been lethargic, she has had recent history of urinary tract infections causing encephalopathy. She is currently more awake and alert, she is oriented 3. She follows with Dr. Kothari in the pulmonary clinic, she was recently seen in the office on 06/21/2021. COVID-19 infection was also thought to have affected her mentation and overall functional level. Patient has been more forgetful, confused, weak and has had some occasional stuttering. Patient has a history of severe persistent bronchial asthma, she is on home oxygen, she is on a combination of Advair, Ventolin, and nebulized ipratropium at home, most recently she has developed some oral thrush and her Advair was placed on hold. She was also referred to Dr. Almeida an outpatient basis for ongoing fatigue, weakness, and confusion. MRI of the brain that was completing outpatient basis was negative. Chest x-ray was completing on admission showing pulmonary interstitial and airspace edema, and infiltrate in the left lower lobe, and probable bilateral pleural effusions. Patient reports no fever or chills, reports slight chest congestion, but no chest discomfort, no hemoptysis. Her white count is elevated at 17 on admission, hemoglobin is 9.2, neutrophils are 50.8, lymphocytes 0.5, d-dimer was 1.59, sodium was 138, potassium is 5.6, chloride was 105, CO2 was 28, BUN is 39, creatinine was 1.3, with evidence of acute kidney injury, lactic acid was normal at 0.7, troponin is less than 0.012, ammonia level was less than 9, proBNP was normal at 96, pro calcitonin level was elevated at 0.41, urinalysis showed no evidence of infection, urine drug screen showed opiates, tricyclic antidepressants, and benzodiazepines, serum alcohol level was less than 10, COVID-19 PCR was negative. Patient was started on Levaquin for empiric antibiotic coverage, breathing treatments, she was hydrated with IV fluids. Blood cultures have been sent. Today's exam she is much more awake and alert, she is on heparin infusion for elevated d-dimer, and VQ scan showing low to intermediate probability of pulmonary embolism. CT of the brain showed mild atrophy, no acute abnormality. CT scan of the facial bones showed no fracture. This was completed related to bruising on her face related to patient hitting her face on the dashboard when she was lethargic and confused. On today's evaluation of 07/04/2021, the patient is awake and alert and she is talking to me normally. She is complaining of pain. I reviewed the chest x-ray and the patient had a consolidation of the left lower lobe consistent with pneumonia and the patient is currently on Levaquin. UA was negative. Overnight he has been was also negative. Her main complaint is chronic pain. The pro calcitonin LEVEL IS AT 0.41. CREATININE IS NORMAL. ELECTROLYTES ARE NORMAL. PROBNP LEVEL IS NORMAL. D-DIMER WAS AT 1.59. OTHERWISE, THE PATIENT IS DOING WELL. SHE HAS A BRUISE ACROSS HER FACE RELATED TO A RECENT BLUNT TRAUMA. MENTAL STATUS IS MORE STABLE. SHE IS ON LOVENOX FOR DVT PROPHYLAXIS. SHE IS CHRONICALLY ON PREDNISONE 20 MG BY MOUTH DAILY. On today's evaluation, 07/05/2021, Fernanda's looking well. She is on room air oxygen. She is not giving any significant respiratory distress. I repeated the chest x-ray today and there is interval improvement in the left lower lobe consolidation. Note that her urine came back negative and there is no evidence of an underlying urine checked infection. She is taking antibiotics and she is still weak. She is tolerating diet. She is using incentive spirometer. She is also on room air oxygen for now. She is weak. She has a walker with her at all times and she has a very good social support system at home. On 07/06/2021 patient seen in follow-up on selective care unit, room air pulse ox is 97%, she is afebrile, no difficulty breathing, no cough, however patient is still generally very weak. She has been nauseous. Yesterday she was having urinary retention, and full catheter was placed back in, urology consultation was obtained and outpatient follow-up was recommended. History of chest x-ray showed low lung volumes and hypoventilatory changes, left mid and lower lung con solidation was improving. Patient is on Levaquin for antibiotic coverage, today's labs have been reviewed, white blood cell count is 13.6, slightly increased from yesterday, but overall improved from admission, hemoglobin is 10.6, sodium is 138, potassium is 3.9, chloride is 109, CO2 is 17, BUN is 20, creatinine 0.58. Cultures have shown no growth. Lung sounds reveal no crackles, no wheezing, patient remains on Symbicort, DuoNeb nebulized treatments, and she is on maintenance dose prednisone. On today's evaluation on 07/07/2021 patient seen in follow-up on selective care unit, she is lethargic, she is very fatigued, weak, but does not appear to be in any acute distress, no nausea or vomiting today. That seems to have improved, no signs of difficulty breathing, she is currently on 2 L of oxygen and she had been on room air as well with a pulse ox of 96%, no fever or chills, no acute events overnight. Chest x-ray today, last chest x-ray from 06/27/2021 showed low lung volumes and interstitial prominence some improvement. She is on Levaquin for antibiotic coverage, blood cultures have shown no growth. Labs today show white count of 11.3, hemoglobin of 10.7, potassium is 3.4, chloride is 111, CO2 16, B1 is 20, creatinine 0.57. His therapy has been trying to work with the patient, however patient's participation has been limited by her global weakness, impaired balance, nausea, difficulty with mobility, and difficulty following direction. Still appears to be somewhat encephalopathic although somewhat improved since admission. His been difficult to arouse, she is sleep ing, she just moans at times, she is somnolent, not following command. Currently the recommendation has been made for placement into the ECF post discharge for rehabilitation. Objective - Vital Signs Vital signs: Vital Signs Temp 98.9 F 07/07/21 12:00 Pulse 94 07/07/21 14:48 Resp 18 07/07/21 14:48 BP 158/70 07/07/21 12:00 Pulse Ox 94 L 07/07/21 08:00 Intake & Output 1107/07/21 07/07/21 18:59 06:59 18:59 Output Total 377 520 1 Balance -377 -520 -1 Weight 52.5 kg 52.5 kg Output: Urine 375 520 Stool 2 1 Other: Voiding Method Indwelling Catheter Indwelling Catheter Indwelling Catheter # Voids 1 # Bowel Movements 1 - Exam GENERAL EXAM: Lethargic 58-year-old white female, oriented 2, on R A oxygen with pulse ox of 94% with diffuse bruising of her face, bridge of the nose, cheeks, and forehead from hitting her face on the dashboard comfortable in no apparent distress. HEAD: Normocephalic/atraumatic. Diffuse bruising on the face EYES: Normal reaction of pupils, equal size. Conjunctiva pink, sclera white. NOSE: Clear with pink turbinates. THROAT: No erythema or exudates. NECK: No masses, no JVD, no thyroid enlargement, no adenopathy. CHEST: No chest wall deformity. Symmetrical expansion. LUNGS: Equal air entry with no crackles, wheeze, rhonchi or dullness. CVS: Regular rate and rhythm, normal S1 and S2, no gallops, no murmurs, no rubs ABDOMEN: Soft, nontender. No hepatosplenomegaly, normal bowel sounds, no guarding or rigidity. EXTREMITIES: No clubbing, no edema, no cyanosis, 2+ pulses and upper and lower extremities. MUSCULOSKELETAL: Muscle strength and tone normal. SPINE: No scoliosis or deformity SKIN: No rashes CENTRAL NERVOUS SYSTEM: Very lethargic and fatigued, required repeated stimu lation to arouse No focal deficits, tone is normal in all 4 extremities. - Labs CBC & Chem 7: 07/07/21 09:50 07/07/21 09:50 Labs: Abnormal Lab Results - Last 24 Hours (Table) 07/06/21 07/06/21 07/07/21 Range/Units 16:31 20:04 06:13 WBC (3.8-10.6) k/uL Hgb (11.4-16.0) gm/dL MCV (80.0-100.0) fL MCH (25.0-35.0) pg MCHC (31.0-37.0) g/dL RDW (11.5-15.5) % Neutrophils # (1.3-7.7) k/uL Potassium (3.5-5.1) mmol/L Chloride (98-107) mmol/L Carbon Dioxide (22-30) mmol/L BUN (7-17) mg/dL Glucose (74-99) mg/dL POC Glucose (mg/dL) 161 H 132 H 113 H (75-99) mg/dL 07/07/21 07/07/21 07/07/21 Range/Units 09:50 09:50 10:56 WBC 11.3 H (3.8-10.6) k/uL Hgb 10.7 L (11.4-16.0) gm/dL MCV 72.9 L (80.0-100.0) fL MCH 21.6 L (25.0-35.0) pg MCHC 29.6 L (31.0-37.0) g/dL RDW 18.3 H (11.5-15.5) % Neutrophils # 8.5 H (1.3-7.7) k/uL Potassium 3.4 L (3.5-5.1) mmol/L Chloride 111 H (98-107) mmol/L Carbon Dioxide 16 L (22-30) mmol/L BUN 20 H (7-17) mg/dL Glucose 117 H (74-99) mg/dL POC Glucose (mg/dL) 242 H (75-99) mg/dL Microbiology - Last 24 Hours (Table) 07/02/21 15:51 Blood Culture - Preliminary Blood No Growth after 96 hours Assessment and Plan Plan: Assessment: #1. Acute left lower lobe pneumonia. COVID-19 PCR was negative #2. Generalized weakness, confusion, acute on chronic, possibly related to recent history of urinary tract infection which has cleared, and possibility of left lower lobe pneumonia seems to be less likely, nevertheless patient is covered with empiric antibiotics #3. Acute kidney injury #4. Intermediate probability VQ scan, low suspicion for pulmonary embolism #5. Mild exacerbation of chronic bronchial asthma, severe persistent #6. Recent COVID-19 pneumonia, recovered #7. Worsened overall general functional performance since COVID-19 infection, and recent urinary tract infection #8. History of hypogammaglobulinemia, on Gammagard infusions #9. Hyperlipidemia #10. Recurrent urinary tract infections #11. Chronic back pain #12. Obstructive sleep apnea, not requiring CPAP therapy currently, AHI is 11 #13. Primary fibromyalgia syndrome #14. Adrenal cortical insufficiency #15. Compression fractures of thoracic vertebra #16. Glaucoma #17. Iron deficiency anemia #18. Urinary retention requiring placement of Moscoso catheter back in, urology services are following Plan: Continue current medical treatment Continue Levaquin Continue DuoNeb Patient is lethargic and weak No signs of worsening dyspnea or hypoxia Discharge planning is in progress for discharge to subacute rehab Stable for transfer to [facility] when arrangements are completed I performed a history & physical examination of the patient and discussed their management with my nurse practitioner, Eloise Hicks. I reviewed the nurse practitioner's note and agree with the documented findings and plan of care. Lung sounds are positive for dim breath sounds throughout the lung wallace. The findings and the impression was discussed with the patient. I attest to the documentation by the nurse practitioner. Time with Patient: Less than 30
[2021-07-07] MEDS: FOLIC ACID 1 MG TAB PO SCH (15:15)
[2021-07-07] MEDS: THIAMINE 100 MG TAB PO SCH (15:15)
[2021-07-07] MEDS: MULTIVITAMINS, THERA 1 EACH TAB PO SCH (15:15)
[2021-07-07 16:39] LABS: Glucose,Whole Blood 138 mg/dL (75-99)
[2021-07-07] MEDS: TAMSULOSIN 0.4 MG CAP.ER.24H PO SCH (17:34)
[2021-07-07] MEDS: DEXTROSE 5% IN WATER 1,000 ML with SOD BICARB SYR 8.4% (1 MEQ/ML) 150 ML IV SCH (18:27)
[2021-07-07] MEDS: INSULIN DETEMIR (LEVEMIR) 100 UNIT/ML SYR SQ SCH (20:01)
[2021-07-07 20:02] LABS: Glucose,Whole Blood 126 mg/dL (75-99)
[2021-07-07] MEDS: METOCLOPRAMIDE 5 MG/ML 2 ML VIAL IVP PRN (20:03)
[2021-07-07] MEDS: LEVOFLOXACIN 750MG-D5W PMX 750 MG in DEXTROSE/WATER 1 150ML.BAG IVPB SCH (20:05)
[2021-07-07] MEDS: PRAVASTATIN SODIUM 20 MG TAB PO SCH (20:10)
[2021-07-08] MEDS: SODIUM CHLORIDE 0.9% 1,000 ML IV SCH (01:00)
[2021-07-08 05:35] LABS: Glucose,Whole Blood 159 mg/dL (75-99)
[2021-07-08] MEDS: INSULIN ASPART (NovoLOG) 100 UNIT/ML VIAL SQ SCH ×7 (06:28→20:40)
[2021-07-08] MEDS: PANTOPRAZOLE 40 MG TABLET PO SCH (06:29)
[2021-07-08] MEDS: SYMBICORT 160-4.5 MCG INHALER INHALATION SCH ×2 (08:32→19:25)
[2021-07-08] MEDS: IPRATROPIUM-ALBUTEROL 3 ML NEB INHALATION SCH ×4 (08:32→19:24)
[2021-07-08] MEDS: DEXTROSE 5% IN WATER 1,000 ML with SOD BICARB SYR 8.4% (1 MEQ/ML) 150 ML IV SCH ×2 (08:52→23:55)
[2021-07-08] MEDS: ENOXAPARIN 40 MG/0.4 ML SYRINGE SQ SCH (08:52)
[2021-07-08] MEDS: predniSONE 20 MG TAB PO SCH (08:52)
[2021-07-08] MEDS: ACETAMINOPHEN TAB 325 MG TAB PO PRN (08:54)
[2021-07-08 10:13] LABS: Anisocytosis Slight; Basophils # (A) 0.1 k/uL (0-0.2); Basophils % (A) 0 %; Eosinophils # (A) 0.1 k/uL (0-0.7); Eosinophils % (A) 1 %; HCT 38.9 % (34.0-46.0); HGB 11.2 gm/dL (11.4-16.0); Hypochromasia Marked; Lymphocytes # (A) 1.2 k/uL (1.0-4.8); Lymphocytes % (A) 7 %; MCH 20.9 pg (25.0-35.0); MCHC 28.8 g/dL (31.0-37.0); MCV 72.5 fL (80.0-100.0); Mean Platelet Volume 7.8; Microcytosis Moderate; Monocytes % (A) 6 %; Neutrophils # (A) 15.2 k/uL (1.3-7.7); Neutrophils % (A) 85 %; Platelet Count 219 k/uL (150-450); Poikilocytosis Slight; RBC 5.36 m/uL (3.80-5.40); RDW 18.5 % (11.5-15.5); WBC 17.9 k/uL (3.8-10.6)
--- NOTE | 2021-07-08 10:31 | P.PN ---
Subjective Progress Note Date: 07/07/21 This is a 66-year-old female who was recently admitted with multiple medical problems including changes in mental status with possible bilateral pneumonia and possible acute urinary tract infection and is being closely monitored. Patient started on IV antibiotics in the form of Levaquin and pulmonary f ollowing as well. Patient recently had COVID-19 infection and has been having prolonged mental status changes secondary to Covid Jamey and post Covid syndrome and long-haul Covid per Dr. Almeida her neurologist. Patient continues to be extremely weak and clinically declining and continues with altered mental status and increased fatigue. Patient has continued poor oral intake and has been fed her half a yogurt and half of a juice this morning. Patient continues with an indwelling Moscoso catheter and has been evaluated by urology recommending continuing with Moscoso for retention with possibility of voiding trial is more responsive. Patient will need urology follow-up in the outpatient setting. Patient continues to be extremely weak and considering possible ECF for PT/OT therapy. Patient continues to be extremely nauseated with no vomiting when getting up and moving around and position changes. Review of systems: Unable to obtain as patient is currently confused and lethargic Active Medications Acetaminophen (Acetaminophen Tab 325 Mg Tab) 650 mg PO Q6HR PRN PRN Reason: Fever and/ or Pain Last Admin: 07/08/21 08:54 Dose: 650 mg Documented by: Albuterol/Ipratropium (Ipratropium-Albuterol 3 Ml Neb) 3 ml INHALATION RT-QID [facility] Last Admin: 07/08/21 08:32 Dose: 3 ml Documented by: Albuterol/Ipratropium (Ipratropium-Albuterol 3 Ml Neb) 3 ml INHALATION RT-Q2H PRN PRN Reason: Shortness Of Breath Or Wheezing Artificial Tears (Artificial Tears-Hypromellose Drops 15 Ml Btl) 1 drops BOTH EYES TID PRN PRN Reason: Dry Eye(s) Last Admin: 07/03/21 17:33 Dose: 1 drops Documented by: Bisacodyl (Bisacodyl 10 Mg Supp) 10 mg RECTAL DAILY PRN PRN Reason: Constipation Budesonide/Formoterol Fumarate (Symbicort 160-4.5 Mcg Inhaler) 2 puff INHALAT ION RT-BID [facility] Last Admin: 07/08/21 08:32 Dose: 2 puff Documented by: Enoxaparin Sodium (Enoxaparin 40 Mg/0.4 Ml Syringe) 40 mg SQ DAILY [facility] Last Admin: 07/08/21 08:52 Dose: 40 mg Documented by: Folic Acid (Folic Acid 1 Mg Tab) 1 mg PO DAILY@1200 [facility] Last Admin: 07/07/21 15:15 Dose: Not Given Documented by: Sodium Chloride (Saline 0.9%) 1,000 mls @ 20 mls/hr IV .Q24H [facility] Last Admin: 07/08/21 01:00 Dose: 20 mls/hr Documented by: Sodium Bicarbonate 150 ml/ (Dextrose/Water) 1,150 mls @ 75 mls/hr IV .[id number] [facility] Last Admin: 07/08/21 08:52 Dose: 75 mls/hr Documented by: Levofloxacin 750 mg/ IV (Solution) 150 mls @ 100 mls/hr IVPB Q24H [facility] Last Admin: 07/07/21 20:05 Dose: 100 mls/hr Documented by: Insulin Aspart (Insulin Aspart (Novolog) 100 Unit/Ml Vial) 0 unit SQ ACHS [facility]; Protocol Last Admin: 07/08/21 06:32 Dose: 1 unit Documented by: Insulin Aspart (Insulin Aspart (Novolog) 100 Unit/Ml Vial) 6 unit SQ AC-TID [facility] Last Admin: 07/08/21 06:28 Dose: Not Given Documented by: Insulin Detemir (Insulin Detemir (Levemir) 100 Unit/Ml Syr) 10 unit SQ HS [facility] Last Admin: 07/07/21 20:01 Dose: Not Given Documented by: Magnesium Hydroxide (Magnesium Hydroxide 2,400 Mg/10 Ml Cup) 1,200 mg PO QID PRN PRN Reason: Indigestion Last Admin: 07/04/21 11:55 Dose: 1,200 mg Documented by: Metoclopramide HCl (Metoclopramide 5 Mg/Ml 2 Ml Vial) 5 mg IVP Q6HR PRN PRN Reason: Nausea And Vomiting Last Admin: 07/07/21 20:03 Dose: 5 mg Documented by: Miscellaneous Information (Potassium Replacement Protocol 1 Each Misc) 1 each MISCELLANE DAILY PRN; Protocol PRN Reason: Per Protocol Multivitamins (Multivitamins, Thera 1 Each Tab) 1 each PO DAILY@1200 [facility] Last Admin: 07/07/21 15:15 Dose: Not Given Documented by: Naloxone HCl (Naloxone 0.4 Mg/Ml 1 Ml Vial) 0.2 mg IV Q2M PRN PRN Reason: Opioid Reversal Ondansetron HCl (Ondansetron 4 Mg/2 Ml Vial) 4 mg IVP Q6HR PRN PRN Reason: Nausea And Vomiting Last Admin: 07/07/21 09:02 Dose: 4 mg Documented by: Pantoprazole Sodium (Pantoprazole 40 Mg Tablet) 40 mg PO AC-BRKFST [facility] Last Admin: 07/08/21 06:29 Dose: Not Given Documented by: Pravastatin Sodium (Pravastatin Sodium 20 Mg Tab) 10 mg PO HS [facility] Last Admin: 07/07/21 20:10 Dose: Not Given Documented by: Prednisone (Prednisone 20 Mg Tab) 20 mg PO DAILY [facility] Last Admin: 07/08/21 08:52 Dose: 20 mg Documented by: Tamsulosin HCl (Tamsulosin 0.4 Mg Cap.Er.24h) 0.4 mg PO PC-SUPPER [facility] Last Admin: 07/07/21 17:34 Dose: Not Given Documented by: Thiamine HCl (Thiamine 100 Mg Tab) 100 mg PO DAILY@1200 [facility] Last Admin: 07/07/21 15:15 Dose: Not Given Documented by: Physical exam: Gen: This is a 66-year-old female asleep, confused, ill-appearing, appears older than stated age HEENT: Head is atraumatic, normocephalic. Pupils equal, round. Sclerae is anicteric. NECK: Supple. No JVD. No lymphadenopathy. No thyromegaly. LUNGS: Diminished breath sounds bilaterally with a few scattered rhonchi and crackles noted. No intercostal retractions. HEART: S1, S2 are muffled ABDOMEN: Soft. Bowel sounds are present. No masses. No tenderness. EXTREMITIES: No pedal edema. No calf tenderness. NEUROLOGICAL: Patient is lethargic although arousable, alert and oriented x2. diffusely weak. 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 Multiple medical complex issues ongoing and patient's mentation continues to be confused and continued with extreme weakness and fatigue. Patient is continued on Levaquin and white blood count continues to be elevated patient is afebrile. Patient has indwelling Moscoso catheter for retention and urology has evaluated the patient recommending outpatient follow-up and possibly a voiding trial to monitor output. Oral intake continues to be poor and encouraged oral intake with at the bedside. is concerned about constipation as patient has not had a bowel movement in many days and will add an enema and suppository and continue on stool softeners daily. Will have PT/OT and [facility] to evaluate the patient with possibility of ECF given patient's multiple conflict medical issues and extremely high risk of falling. Prognosis is extremely guarded. Further recommendations to follow based on the clinical course of the patient. Objective - Vital Signs Vital signs: Vital Signs Temp 98.9 F 07/07/21 08:00 Pulse 96 07/07/21 08:00 Resp 17 07/07/21 08:00 BP 158/70 07/07/21 08:00 Pulse Ox 94 L 07/07/21 08:00 Intake & Output 07/06/21 07/07/21 07/07/21 18:59 06:59 18:59 Output Total 377 520 1 Balance -377 -520 -1 Weight 52.5 kg Output: Urine 375 520 Stool 2 1 Other: Voiding Method Indwelling Catheter Indwelling Catheter Indwelling Catheter # Voids 1 - Labs CBC & Chem 7: 07/08/21 09:26 07/07/21 09:50 Labs: Abnormal Lab Results - Last 24 Hours (Table) 07/06/21 07/06/21 07/06/21 Range/Units 11:40 12:20 12:20 WBC 13.6 H (3.8-10.6) k/uL Hgb 10.6 L (11.4-16.0) gm/dL MCV 73.8 L (80.0-100.0) fL MCH 21.5 L (25.0-35.0) pg MCHC 29.2 L (31.0-37.0) g/dL RDW 18.0 H (11.5-15.5) % Neutrophils # 11.6 H (1.3-7.7) k/uL Lymphocytes # 0.9 L (1.0-4.8) k/uL Potassium (3.5-5.1) mmol/L Chloride 109 H (98-107) mmol/L Carbon Dioxide 17 L (22-30) mmol/L BUN 20 H (7-17) mg/dL Glucose 139 H (74-99) mg/dL POC Glucose (mg/dL) 119 H (75-99) mg/dL Calcium 8.3 L (8.4-10.2) mg/dL 07/06/21 07/06/21 07/07/21 Range/Units 16:31 20:04 06:13 WBC (3.8-10.6) k/uL Hgb (11.4-16.0) gm/dL MCV (80.0-100.0) fL MCH (25.0-35.0) pg MCHC (31.0-37.0) g/dL RDW (11.5-15.5) % Neutrophils # (1.3-7.7) k/uL Lymphocytes # (1.0-4.8) k/uL Potassium (3.5-5.1) mmol/L Chloride (98-107) mmol/L Carbon Dioxide (22-30) mmol/L BUN (7-17) mg/dL Glucose (74-99) mg/dL POC Glucose (mg/dL) 161 H 132 H 113 H (75-99) mg/dL Calcium (8.4-10.2) mg/dL 07/07/21 07/07/21 07/07/21 Range/Units 09:50 09:50 10:56 WBC 11.3 H (3.8-10.6) k/uL Hgb 10.7 L (11.4-16.0) gm/dL MCV 72.9 L (80.0-100.0) fL MCH 21.6 L (25.0-35.0) pg MCHC 29.6 L (31.0-37.0) g/dL RDW 18.3 H (11.5-15.5) % Neutrophils # 8.5 H (1.3-7.7) k/uL Lymphocytes # (1.0-4.8) k/uL Potassium 3.4 L (3.5-5.1) mmol/L Chloride 111 H (98-107) mmol/L Carbon Dioxide 16 L (22-30) mmol/L BUN 20 H (7-17) mg/dL Glucose 117 H (74-99) mg/dL POC Glucose (mg/dL) 242 H (75-99) mg/dL Calcium (8.4-10.2) mg/dL Microbiology - Last 24 Hours (Table) 07/02/21 15:51 Blood Culture - Preliminary Blood No Growth after 96 hours
[2021-07-08 10:38] LABS: ALT 32 U/L (4-34); AST 40 U/L (14-36); African American GFR (CKD) >90 (>60 ml/min/1.73 sqM); Albumin 3.3 g/dL (3.5-5.0); Alkaline Phosphatase 97 U/L (38-126); Anion Gap 13 mmol/L; Blood Urea Nitrogen 18 mg/dL (7-17); Calcium 8.8 mg/dL (8.4-10.2); Carbon Dioxide 18 mmol/L (22-30); Chloride 106 mmol/L (98-107); Glucose 179 mg/dL (74-99); Non-African American GFR(CKD) >90 (>60 ml/min/1.73 sqM); Potassium 3.6 mmol/L (3.5-5.1); Sodium 137 mmol/L (137-145); Total Bilirubin 0.6 mg/dL (0.2-1.3); Total Protein 6.1 g/dL (6.3-8.2)
[2021-07-08] MEDS: FOLIC ACID 1 MG TAB PO SCH (11:07)
[2021-07-08] MEDS: MULTIVITAMINS, THERA 1 EACH TAB PO SCH (11:07)
[2021-07-08] MEDS: THIAMINE 100 MG TAB PO SCH (11:07)
[2021-07-08 11:42] LABS: Glucose,Whole Blood 194 mg/dL (75-99)
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
[2021-07-08] MEDS ORDERED: LORazepam 2 MG/ML INJ IV ONE (16:19)
[2021-07-08] MEDS ORDERED: LACOSAMIDE IV 100 MG in SODIUM CHLORIDE 0.9% 50 ML IVPB STA (16:31)
[2021-07-08 16:54] LABS: Glucose,Whole Blood 176 mg/dL (75-99)
--- NOTE | 2021-07-08 16:59 | P.CNNES ---
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 History was obtained from patient's husand (who is at bedside) and medical records since patient is unable to provide history. Patient has been more generalized weak and lethargic recently so patient brought her to the hospital. As he and his son was bringing to hospital she feel down and hit her face. During hospital study she was found to have an acute left lower lobe pneumonia as well as has acute kidney injury and was being treated for her pneumonia during hospital stay and was doing well. Her mentation scanlon ed per about 3-4 days ago and she became unresponsive and not following commands. Per patient's and her nurse no seizure-like activities noted. Per she is usually alert, oriented to self, place and time and follows commands. During hospital stay she was afebrile but her initial wbc is 17.0 then improved but again it is back to 17.9K. She had episodes of sugar as low as 51 on 07/05/2021. During hospital stay she was on Levaquin. Some of the patient's home medications consist of pupils was 30 mg 1 tablet twice a day, Xanax 0.5 motor 1 tablet twice a day when necessary, Synthroid, Lexapro 20 mg daily, trazodone, Xanax, prednisone 20 mg daily, pravastatin, Lantus, Gentry when necessary, Lasix, Levaquin. Of note per patient's , patient has been following up with Dr. Almeida since he mentation has been off and generalized weakness since COVID-19 pneumonia about 1 year ago. Per her neurologist worked her up and was negative for stroke or seizure (he said she had imaging of brain and EEG). She get IVIG once a month for her common variable immunodeficiency and last infusion is in May 2021. She walks with a walker. She had history of lower back pain and surgery and complication in 2018. She had history of cervical spondylosis but is not seeking any surgery. Some of the workup in the hospital consisted of: Recent vitals his blood pressure 136/72, heart rate of 106, respiratory of 17, temperature of 98.8 Fahrenheit oral and pulse ox of 92 L at room air. And this hospital stay the patient was afebrile upon reviewing EMR. Patient will blood cell on presentation was 11.2 thousand 10 it normalized but most recent is 17.9 thousand Patient sugar POC has been in the range of 120s to 240. Sodium is 137, creatinine is 0.50, calcium is 8.8, AST of 40 and ALT of 32. Ammonia level is less than 9. Urine analysis on the first 1 was negative a most recent patient has a trace of leukocyte esterase and urine bacteria was rare and it looks cloudy and I'm not sure if the patient is developing underlying urinary tract infection. Urine tox screen is positive for opiates, Tri-Cyclen it's and benzo. The serum alcohol was less than 10. Coronavirus PCR was not detected. CT of the head on 07/02/2021 is reported as prior chronic small vessel ischemia. No change compared to old exam. No acute abnormality. Per Cerner review the CT of the head and there is no acute or subacute ischemia that's appreciable and there is no intraperitoneal hemorrhage. D of the face is reported as negative CT scan of the facial bone. No fracture. Review of Systems Review of system is limited in the apparent positive and negative as per HPI. Past Medical History Past Medical History: Asthma, COPD, Diabetes Mellitus, Eye Disorder, Fibromyalgia, GERD/Reflux, Hyperlipidemia, Hypertension, Musculoskeletal Disorder, Pneumonia, Respiratory Disorder, Skin Disorder Additional Past Medical History / Comment(s): Bronchial asthma, tracheobronchomalacia, common variable immunoglobulin deficiency. Chronic back problems. chronic steroid use, suspected component of adrenal insufficiency due to chronic steroid use. Hiatal hernia. 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 Pneumonia / In ICU in [place] after Back surgery - March 2019. Mycobacterium gordonae soft tissue infection. cataracts, glaucoma, fibromyalgia, chronic pain, compression fracture of the spine. History of Any Multi-Drug Resistant Organisms: MRSA Date of last positivie culture/infection: 2010 MDRO Source:: right hand Past Surgical History: Appendectomy, Back Surgery, Breast Surgery, Cho lecystectomy, Tubal Ligation Additional Past Surgical History / Comment(s): MULT BRONCHS, WASHINGS, LAST 04/17/14. EXC [facility] CATARACT. BLEPHAROPLASTY/ R&L BREAST BIOPSIES; PORT A CATH IN LEFT CHEST-CHANGED TO RT CHEST,EXC MYCOBACTERIUM AREAS RT ARM 2011; UPPER TEETH EXTRACTED. RT SALPINGECTOMY/FALLOPIAN TUBE REMOVED, I&D BOIL.Jul [facility] EYE AND MUSCLE SURGERY; - mouth (bone) surgery. Pain pump insertion to left buttocks - October 2016. Colonoscopy 2014. Hiatal hernia surgeries 2014&2015. Back surgery (Decompresssion) - February 2019 Past Anesthesia/Blood Transfusion Reactions: Motion Sickness, Postoperative Nausea & Vomiting (PONV) Past Psychological History: Anxiety, Depression Additional Psychological History / Comment(s): . Lives in the family home with her . Not employed outside of the home. Lifelong nonsmoker. No significant history of alcohol use. No history of recreational drug use. No international travels. There are pet dogs in the home. There are still children in the home that they are responsible for. Smoking Status: Never smoker Past Alcohol Use History: None Reported Past Drug Use History: None Reported - Past Family History Mother Family Medical History: Cancer Additional Family Medical History / Comment(s): BREAST CANCER. Father Additional Family Medical History / Comment(s): r/t suicide Medications and Allergies Home Medications Medication Instructions Recorded Confirmed Type traZODone HCL 75 mg PO HS 09/10/16 07/02/21 History Fluticasone/Salmeterol [Advair Hfa 2 puff INHALATION RT-BID 04/09/19 07/02/21 History 230-21 Mcg Inhaler] ALPRAZolam [Xanax] 0.25 mg PO HS PRN 07/21/20 07/02/21 History Pantoprazole [Protonix] 40 mg PO DAILY 07/21/20 07/02/21 History Pravastatin Sodium [Pravachol] 10 mg PO HS 07/21/20 07/02/21 History Promethazine 6.25MG/5Ml [Phenergan 6.25 mg PO DIRECTED PRN 07/21/20 07/02/21 History Syrup] Acetaminophen Tab [Tylenol] 650 mg PO Q6HR PRN tab 07/27/20 07/02/21 Rx Denosumab [Prolia] 60 mg SQ Q180D 03/03/21 07/02/21 History Glucagon Emergency Kit 1 mg IM ONCE PRN 03/03/21 07/02/21 History Insulin Aspart [NovoLOG Flexpen] 6 units SQ AC-TID 03/03/21 07/02/21 History Insulin Glargine,Hum.rec.anlog 10 unit SQ HS 03/03/21 07/02/21 History [Lantus Solostar Pen] busPIRone HCL 30 mg PO BID 03/03/21 07/02/21 History ALPRAZolam [Xanax] 0.5 mg PO TID PRN 05/15/21 07/02/21 History Furosemide [Lasix] 40 mg PO TID 05/15/21 07/02/21 History HYDROcodone/APAP 7.5-325MG [Gentry 1 tab PO Q4H PRN 05/15/21 07/02/21 History 7.5-325] Potassium Chloride [Klor-Con 20] 60 meq PO BID 05/15/21 07/02/21 History predniSONE 20 mg PO DAILY 05/15/21 07/02/21 History Ipratropium-Albuterol Nebulize 3 ml INHALATION RT-QID #120 ml 07/05/21 Rx [Duoneb 0.5 mg-3 mg/3 ml Soln] Levofloxacin [Levaquin] 750 mg PO DAILY 7 Days #7 tab 07/05/21 Rx Multivitamins, Thera [Multivitamin] 1 tab PO DAILY #30 tablet 07/05/21 Rx Spironolactone [Aldactone] 25 mg PO DAILY #30 07/05/21 07/02/21 Rx Escitalopram [Lexapro] 20 mg PO DAILY 07/07/21 07/07/21 History Allergies Allergy/AdvReac Type Severity Reaction Status Date / Time crisaborole [From Eucrisa] Allergy Rash/Hives Verified 07/02/21 13:57 cefuroxime axetil AdvReac Severe Abdominal Verified 07/02/21 13:57 [From Ceftin] Pain ciprofloxacin HCl AdvReac Severe Abdominal Verified 07/02/21 13:57 [From Cipro] Pain erythromycin base AdvReac Unknown Abdominal Verified 07/02/21 13:57 [Erythromycin Base] Pain sulfamethoxazole AdvReac Unknown Abdominal Verified 07/02/21 13:57 [From Bactrim] Pain trimethoprim [From Bactrim] AdvReac Unknown Abdominal Verified 07/02/21 13:57 Pain indomethacin sodium AdvReac severe Verified 07/02/21 13:57 [From Indocin] Confusion NSAIDS (Non-Steroidal AdvReac Dyspnea Verified 07/02/21 13:57 Anti-Inflamma Penicillins AdvReac Nausea & Verified 07/02/21 13:57 Vomiting Sulfa (Sulfonamide AdvReac Abdominal Verified 07/02/21 13:57 Antibiotics) Pain Physical Examination - Vital Signs Vital Signs: Vital Signs Temp Pulse Pulse Resp BP Pulse Ox 07/08/21 12:06 102 H 07/08/21 12:00 98.8 F 106 H 17 136/72 92 L 07/08/21 11:57 100 07/08/21 08:40 100 07/08/21 08:32 102 H 07/08/21 08:00 98.8 F 101 H 16 143/75 93 L 07/08/21 04:30 98.7 F 105 H 17 153/65 93 L 07/07/21 23:05 98.5 F 102 H 19 145/65 98 07/07/21 19:56 100 07/07/21 19:44 104 H 07/07/21 19:30 98.3 F 104 H 18 146/67 94 L 07/07/21 16:00 97.7 F 98 17 147/67 95 07/07/21 14:57 92 18 Intake and Output 07/07/21 07/08/21 07/08/21 22:59 06:59 14:59 Output Total 301 325 Balance -301 -325 Output: Urine 300 325 Stool 1 Other: Voiding Method Indwelling Catheter Indwelling Catheter Indwelling Catheter Weight 51.5 kg GENERAL: The patient is lying and does not seem in acute distress. HENT is head rotated to left and seem fixed that way (per that how she normally is when lying). Difficulty flexing her neck. CHEST: Has edema over the upper extremity (mostly distal). No murmurs to ausc ultation. LUNG: No wheezing Not labored breathing. ABDOMEN/GI: Bowel sounds present in all 4 quadrants. No tenderness to palpation throughout. NEUROLOGICAL: Limited because of her condition. Higher mental function: The patient is awake but is non-responsive. She is not following commands. Cranial nerves: The pupils are round, dilated, about 6-7mm bilaterally and contricts to light bilaterally. Her eyes are fixed to right and would not track. No facial weakness. Has facial echymosis over eyes, nose (from recent fall outside hospital). Otherwise could not assess rest of cranial nerves. Motor: The strength could not be assessed. Increase tone throughout (wrist, knees). Atrophy over the thigh. Cerebellum: Could not asses. Sensation: Could not asses. Reflexes (right/left): 2+ over left brachioradialis otherwise 0 throughout. Plantars are mute bilaterally. Results - Laboratory Findings CBC and BMP: 07/08/21 09:26 07/08/21 09:26 Abnormal Lab Findings: Abnormal Labs 07/02/21 07/02/21 07/02/21 12:55 13:19 15:43 WBC Hgb Hct MCV MCH MCHC RDW Neutrophils # Lymphocytes # APTT D-Dimer Sodium Potassium 5.6 H Chloride Carbon Dioxide BUN 39 H Creatinine 1.30 H Glucose 182 H POC Glucose (mg/dL) 197 H Calcium Magnesium 3.0 H AST 39 H Total Protein 5.6 L Albumin 3.0 L Procalcitonin Urine Appearance Urine Ketones Urine Blood Ur Leukocyte Esterase Urine WBC Amorphous Sediment Urine Bacteria Urine Mucus Urine Opiates Screen Detected H U Tricyclic Antidepress Detected H U Benzodiazepines Scrn Detected H 07/02/21 07/02/21 07/02/21 15:43 15:43 15:51 WBC 17.0 H Hgb 9.2 L D Hct 31.1 L MCV 72.8 L D MCH 21.5 L MCHC 29.6 L RDW 16.5 H Neutrophils # 15.8 H Lymphocytes # 0.5 L APTT D-Dimer 1.59 H Sodium Potassium Chloride Carbon Dioxide BUN Creatinine Glucose POC Glucose (mg/dL) Calcium Magnesium AST Total Protein Albumin Procalcitonin 0.41 H Urine Appearance Urine Ketones Urine Blood Ur Leukocyte Esterase Urine WBC Amorphous Sediment Urine Bacteria Urine Mucus Urine Opiates Screen U Tricyclic Antidepress U Benzodiazepines Scrn 07/03/21 07/03/21 07/03/21 04:15 11:31 12:19 WBC Hgb Hct MCV MCH MCHC RDW Neutrophils # Lymphocytes # APTT 69.7 H 40.1 H D-Dimer Sodium Potassium Chloride Carbon Dioxide BUN Creatinine Glucose POC Glucose (mg/dL) 119 H Calcium Magnesium AST Total Protein Albumin Procalcitonin Urine Appearance Urine Ketones Urine Blood Ur Leukocyte Esterase Urine WBC Amorphous Sediment Urine Bacteria Urine Mucus Urine Opiates Screen U Tricyclic Antidepress U Benzodiazepines Scrn 07/03/21 07/03/21 07/03/21 16:23 17:30 17:30 WBC 11.2 H Hgb 9.9 L Hct MCV 72.9 L MCH 21.1 L MCHC 29.0 L RDW 16.7 H Neutrophils # 10.4 H Lymphocytes # 0.4 L APTT D-Dimer Sodium 135 L Potassium Chloride Carbon Dioxide BUN 18 H Creatinine Glucose 205 H POC Glucose (mg/dL) 318 H Calcium 8.1 L Magnesium AST Total Protein Albumin Procalcitonin Urine Appearance Urine Ketones Urine Blood Ur Leukocyte Esterase Urine WBC Amorphous Sediment Urine Bacteria Urine Mucus Urine Opiates Screen U Tricyclic Antidepress U Benzodiazepines Scrn 07/03/21 07/04/21 07/04/21 20:19 05:47 05:55 WBC Hgb Hct MCV MCH MCHC RDW Neutrophils # Lymphocytes # APTT D-Dimer Sodium Potassium Chloride Carbon Dioxide BUN Creatinine Glucose POC Glucose (mg/dL) 133 H 125 H 106 H Calcium Magnesium AST Total Protein Albumin Procalcitonin Urine Appearance Urine Ketones Urine Blood Ur Leukocyte Esterase Urine WBC Amorphous Sediment Urine Bacteria Urine Mucus Urine Opiates Screen U Tricyclic Antidepress U Benzodiazepines Scrn 07/04/21 07/04/21 07/04/21 08:56 08:56 16:32 WBC Hgb 9.7 L Hct 32.7 L MCV 73.6 L MCH 21.7 L MCHC 29.5 L RDW 16.9 H Neutrophils # Lymphocytes # APTT D-Dimer Sodium Potassium 3.2 L Chloride 108 H Carbon Dioxide BUN Creatinine Glucose POC Glucose (mg/dL) 171 H Calcium Magnesium AST 46 H Total Protein 5.7 L Albumin 2.8 L Procalcitonin Urine Appearance Urine Ketones Urine Blood Ur Leukocyte Esterase Urine WBC Amorphous Sediment Urine Bacteria Urine Mucus Urine Opiates Screen U Tricyclic Antidepress U Benzodiazepines Scrn 07/05/21 07/05/21 07/05/21 05:10 06:19 06:38 WBC Hgb Hct MCV MCH MCHC RDW Neutrophils # Lymphocytes # APTT D-Dimer Sodium Potassium Chloride Carbon Dioxide BUN Creatinine Glucose POC Glucose (mg/dL) 51 L 59 L Calcium Magnesium AST Total Protein Albumin Procalcitonin Urine Appearance Urine Ketones Trace H Urine Blood Ur Leukocyte Esterase Urine WBC Amorphous Sediment Urine Bacteria Urine Mucus Urine Opiates Screen U Tricyclic Antidepress U Benzodiazepines Scrn 07/05/21 07/05/21 07/05/21 08:46 08:46 16:14 WBC Hgb 10.5 L Hct MCV 71.3 L MCH 21.9 L MCHC 30.7 L RDW 17.7 H Neutrophils # 7.8 H Lymphocytes # APTT D-Dimer Sodium Potassium Chloride 111 H Carbon Dioxide 21 L BUN Creatinine Glucose POC Glucose (mg/dL) 161 H Calcium 8.3 L Magnesium AST Total Protein Albumin Procalcitonin Urine Appearance Urine Ketones Urine Blood Ur Leukocyte Esterase Urine WBC Amorphous Sediment Urine Bacteria Urine Mucus Urine Opiates Screen U Tricyclic Antidepress U Benzodiazepines Scrn 07/05/21 07/05/21 07/06/21 20:27 Unknown 11:40 WBC Hgb Hct MCV MCH MCHC RDW Neutrophils # Lymphocytes # APTT D-Dimer Sodium Potassium Chloride Carbon Dioxide BUN Creatinine Glucose POC Glucose (mg/dL) 121 H 119 H Calcium Magnesium AST Total Protein Albumin Procalcitonin Urine Appearance Cloudy H Urine Ketones 2+ H Urine Blood Trace H Ur Leukocyte Esterase Trace H Urine WBC 6 H Amorphous Sediment Rare H Urine Bacteria Rare H Urine Mucus Few H Urine Opiates Screen U Tricyclic Antidepress U Benzodiazepines Scrn 07/06/21 07/06/21 07/06/21 12:20 12:20 16:31 WBC 13.6 H Hgb 10.6 L Hct MCV 73.8 L MCH 21.5 L MCHC 29.2 L RDW 18.0 H Neutrophils # 11.6 H Lymphocytes # 0.9 L APTT D-Dimer Sodium Potassium Chloride 109 H Carbon Dioxide 17 L BUN 20 H Creatinine Glucose 139 H POC Glucose (mg/dL) 161 H Calcium 8.3 L Magnesium AST Total Protein Albumin Procalcitonin Urine Appearance Urine Ketones Urine Blood Ur Leukocyte Esterase Urine WBC Amorphous Sediment Urine Bacteria Urine Mucus Urine Opiates Screen U Tricyclic Antidepress U Benzodiazepines Scrn 07/06/21 07/07/21 07/07/21 20:04 06:13 09:50 WBC 11.3 H Hgb 10.7 L Hct MCV 72.9 L MCH 21.6 L MCHC 29.6 L RDW 18.3 H Neutrophils # 8.5 H Lymphocytes # APTT D-Dimer Sodium Potassium Chloride Carbon Dioxide BUN Creatinine Glucose POC Glucose (mg/dL) 132 H 113 H Calcium Magnesium AST Total Protein Albumin Procalcitonin Urine Appearance Urine Ketones Urine Blood Ur Leukocyte Esterase Urine WBC Amorphous Sediment Urine Bacteria Urine Mucus Urine Opiates Screen U Tricyclic Antidepress U Benzodiazepines Scrn 07/07/21 07/07/21 07/07/21 09:50 10:56 16:21 WBC Hgb Hct MCV MCH MCHC RDW Neutrophils # Lymphocytes # APTT D-Dimer Sodium Potassium 3.4 L Chloride 111 H Carbon Dioxide 16 L BUN 20 H Creatinine Glucose 117 H POC Glucose (mg/dL) 242 H 138 H Calcium Magnesium AST Total Protein Albumin Procalcitonin Urine Appearance Urine Ketones Urine Blood Ur Leukocyte Esterase Urine WBC Amorphous Sediment Urine Bacteria Urine Mucus Urine Opiates Screen U Tricyclic Antidepress U Benzodiazepines Scrn 07/07/21 07/08/21 07/08/21 20:00 05:33 09:26 WBC 17.9 H Hgb 11.2 L Hct MCV 72.5 L MCH 20.9 L MCHC 28.8 L RDW 18.5 H Neutrophils # 15.2 H Lymphocytes # APTT D-Dimer Sodium Potassium Chloride Carbon Dioxide BUN Creatinine Glucose POC Glucose (mg/dL) 126 H 159 H Calcium Magnesium AST Total Protein Albumin Procalcitonin Urine Appearance Urine Ketones Urine Blood Ur Leukocyte Esterase Urine WBC Amorphous Sediment Urine Bacteria Urine Mucus Urine Opiates Screen U Tricyclic Antidepress U Benzodiazepines Scrn 07/08/21 07/08/21 09:26 11:32 WBC Hgb Hct MCV MCH MCHC RDW Neutrophils # Lymphocytes # APTT D-Dimer Sodium Potassium Chloride Carbon Dioxide 18 L BUN 18 H Creatinine 0.50 L Glucose 179 H POC Glucose (mg/dL) 194 H Calcium Magnesium AST 40 H Total Protein 6.1 L Albumin 3.3 L Procalcitonin Urine Appearance Urine Ketones Urine Blood Ur Leukocyte Esterase Urine WBC Amorphous Sediment Urine Bacteria Urine Mucus Urine Opiates Screen U Tricyclic Antidepress U Benzodiazepines Scrn Assessment and Plan Assessment: * Altered mental status (about 3-4 days ago) with trending upward of kenyatta kocytosis and on examination had right gaze deviation: Encephalopathy of unknown cause. Rule out meningoencephalitis (but has no fever and feel less likely on diagnosis) Rule out seizure. Possibly has component of underlying infection (recurrent urinary tract infection and possibly left lower pneumonia) which she received treatment for and component metabolic encephalopathy (had sugars as low as 50's on 07/05/2021). 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 Also the pulmonary team ordered EEG. I ordered 1 mg Ativan once modeled Vimpat 100 mg once and then start the patient on Vimpat 50 mg every 12 hours and we'll patient's mentation improves. Consulted anesthesiology team for lumbar puncture and I explained the the LP a dded to the patient's and he is in agreement. Consulted infection disease team. Ordered TSH, vitamin B12, folate. Every 4 hours neuro checks. She is currently on thiamine 100 mg daily Patient is also on folic acid 1 mg daily. Pulmonary team is on board Defer the rest of the medical management to the primary team. Upon discharge, the patient needs to follow-up with her neurologist (Dr. Almeida) as outpatient. Plan is discussed with the patient's and her nurse. Thank you for the consultation. Damaso Ozuna M.D. Neuro-hospitalist Time with Patient: Greater than 30
[2021-07-08] MEDS: POTASSIUM CHLORIDE 10 MEQ in WATER FOR INJECTION 1 100ML.BAG IVPB SCH ×2 (17:01→18:45)
--- NOTE | 2021-07-08 17:15 | CT ---
EXAMINATION TYPE: CT brain wo con DATE OF EXAM: 07/08/2021 COMPARISON: 07/02/2021 HISTORY: AMS CT DLP: 1099.4 mGycm Automated exposure control for dose reduction was used. There is patchy hypodensity in the periventricular white matter. There is cerebral atrophy. There is no mass effect nor midline shift. There is no sign of intracranial hemorrhage. Calvarium is intact. IMPRESSION: Chronic small vessel ischemia. Mild atrophy. No change compared to recent exam.
[2021-07-08] MEDS: TAMSULOSIN 0.4 MG CAP.ER.24H PO SCH (17:19)
[2021-07-08] MEDS: PRAVASTATIN SODIUM 20 MG TAB PO SCH (19:56)
[2021-07-08] MEDS: LEVOFLOXACIN 750MG-D5W PMX 750 MG in DEXTROSE/WATER 1 150ML.BAG IVPB SCH (19:59)
[2021-07-08 20:24] LABS: Glucose,Whole Blood 137 mg/dL (75-99)
[2021-07-08] MEDS: INSULIN DETEMIR (LEVEMIR) 100 UNIT/ML SYR SQ SCH (20:29)
[2021-07-08] MEDS: METOCLOPRAMIDE 5 MG/ML 2 ML VIAL IVP PRN (20:40)
[2021-07-08] MEDS: LACOSAMIDE IV 50 MG in SODIUM CHLORIDE 0.9% 50 ML IVPB SCH (23:56)
[2021-07-09] MEDS: SODIUM CHLORIDE 0.9% 1,000 ML IV SCH (02:57)
--- NOTE | 2021-07-09 02:58 | P.PN ---
Subjective Progress Note Date: 07/08/21 This is a 66-year-old female who was recently admitted with multiple medical problems including changes in mental status with possible bilateral pneumonia and possible acute urinary tract infection and is being closely monitored. Patient started on IV antibiotics in the form of Levaquin and pulmonary f ollowing as well. Patient recently had COVID-19 infection and has been having prolonged mental status changes secondary to Covid Jamey and post Covid syndrome and long-haul Covid per Dr. Almeida her neurologist. Patient continues to be extremely weak and clinically declining and continues with altered mental status and increased fatigue. Patient has continued poor oral intake and has been fed her half a yogurt and half of a juice this morning. Patient continues with an indwelling Moscoso catheter and has been evaluated by urology recommending continuing with Moscoso for retention with possibility of voiding trial is more responsive. Patient will need urology follow-up in the outpatient setting. Patient continues to be extremely weak and considering possible ECF for PT/OT therapy. Patient continues to be extremely nauseated with no vomiting when getting up and moving around and position changes. 07/08/2021 Patient is evaluated this morning and continues to be extremely lethargic and confused. Pulmonary following closely and neurology and ID consulted for continued AMS and WBC trending up despite being on IV antibiotics in the form of Levaquin. Oral intake is poor and patient is risk for aspiration and having difficulty taking medications and spitting them out. EEG ordered and CT of the brain. Review of systems: Unable to obtain as patient is currently confused and lethargic Active Medications Acetaminophen (Acetaminophen Tab 325 Mg Tab) 650 mg PO Q6HR PRN PRN Reason: Fever and/ or Pain Last Admin: 07/08/21 08:54 Dose: 650 mg Documented by: Albuterol/Ipratropium (Ipratropium-Albuterol 3 Ml Neb) 3 ml INHALATION RT-QID DIO Last Admin: 07/08/21 19:24 Dose: 3 ml Documented by: Albuterol/Ipratropium (Ipratropium-Albuterol 3 Ml Neb) 3 ml INHALATION RT-Q2H PRN PRN Reason: Shortness Of Breath Or Wheezing Artificial Tears (Artificial Tears-Hypromellose Drops 15 Ml Btl) 1 drops BOTH EYES TID PRN PRN Reason: Dry Eye(s) Last Admin: 07/03/21 17:33 Dose: 1 drops Documented by: Bisacodyl (Bisacodyl 10 Mg Supp) 10 mg RECTAL DAILY PRN PRN Reason: Constipation Budesonide/Formoterol Fumarate (Symbicort 160-4.5 Mcg Inhaler) 2 puff INHALATION RT-BID [facility] Last Admin: 07/08/21 19:25 Dose: 2 puff Documented by: Enoxaparin Sodium (Enoxaparin 40 Mg/0.4 Ml Syringe) 40 mg SQ DAILY [facility] Last Admin: 07/08/21 08:52 Dose: 40 mg Documented by: Folic Acid (Folic Acid 1 Mg Tab) 1 mg PO DAILY@1200 [facility] Last Admin: 07/08/21 11:07 Dose: Not Given Documented by: Sodium Chloride (Saline 0.9%) 1,000 mls @ 20 mls/hr IV .Q24H [facility] Last Admin: 07/08/21 01:00 Dose: 20 mls/hr Documented by: Sodium Bicarbonate 150 ml/ (Dextrose/Water) 1,150 mls @ 75 mls/hr IV .[id number] [facility] Last Admin: 07/08/21 23:55 Dose: 75 mls/hr Documented by: Levofloxacin 750 mg/ IV (Solution) 150 mls @ 100 mls/hr IVPB Q24H [facility] Last Admin: 07/08/21 19:59 Dose: 100 mls/hr Documented by: Lacosamide 50 mg/ Sodium (Chloride) 55 mls @ 100 mls/hr IVPB BID [facility] Last Admin: 07/08/21 23:56 Dose: 100 mls/hr Documented by: Insulin Aspart (Insulin Aspart (Novolog) 100 Unit/Ml Vial) 0 unit SQ ACHS [facility]; Protocol Last Admin: 07/08/21 20:40 Dose: 1 unit Documented by: Insulin Aspart (Insulin Aspart (Novolog) 100 Unit/Ml Vial) 6 unit SQ AC-TID [facility] Last Admin: 07/08/21 17:24 Dose: 6 unit Documented by: Insulin Detemir (Insulin Detemir (Levemir) 100 Unit/Ml Syr) 10 unit SQ HS [facility] Last Admin: 07/08/21 20:29 Dose: Not Given Documented by: Magnesium Hydroxide (Magnesium Hydroxide 2,400 Mg/10 Ml Cup) 1,200 mg PO QID PRN PRN Reason: Indigestion Last Admin: 07/04/21 11:55 Dose: 1,200 mg Documented by: Metoclopramide HCl (Metoclopramide 5 Mg/Ml 2 Ml Vial) 5 mg IVP Q6HR PRN PRN Reason: Nausea And Vomiting Last Admin: 07/08/21 20:40 Dose: 5 mg Documented by: Miscellaneous Information (Potassium Replacement Protocol 1 Each Misc) 1 each MISCELLANE DAILY PRN; Protocol PRN Reason: Per Protocol Multivitamins (Multivitamins, Thera 1 Each Tab) 1 each PO DAILY@1200 [facility] Last Admin: 07/08/21 11:07 Dose: Not Given Documented by: Naloxone HCl (Naloxone 0.4 Mg/Ml 1 Ml Vial) 0.2 mg IV Q2M PRN PRN Reason: Opioid Reversal Ondansetron HCl (Ondansetron 4 Mg/2 Ml Vial) 4 mg IVP Q6HR PRN PRN Reason: Nausea And Vomiting Last Admin: 07/07/21 09:02 Dose: 4 mg Documented by: Pantoprazole Sodium (Pantoprazole 40 Mg Tablet) 40 mg PO AC-BRKFST [facility] Last Admin: 07/08/21 06:29 Dose: Not Given Documented by: Pravastatin Sodium (Pravastatin Sodium 20 Mg Tab) 10 mg PO [facility] Last Admin: 07/08/21 19:56 Dose: Not Given Documented by: Prednisone (Prednisone 20 Mg Tab) 20 mg PO DAILY [facility] Last Admin: 07/08/21 08:52 Dose: 20 mg Documented by: Tamsulosin HCl (Tamsulosin 0.4 Mg Cap.Er.24h) 0.4 mg PO PC-SUPPER [facility] Last Admin: 07/08/21 17:19 Dose: Not Given Documented by: Thiamine HCl (Thiamine 100 Mg Tab) 100 mg PO DAILY@1200 [facility] Last Admin: 07/08/21 11:07 Dose: Not Given Documented by: Physical exam: Gen: This is a 66-year-old female asleep and extremely lethargic, confused, ill- appearing, appears older than stated age HEENT: Head is atraumatic, normocephalic. Pupils equal, round. Sclerae is anicte santi. NECK: Supple. No JVD. No lymphadenopathy. No thyromegaly. LUNGS: Diminished breath sounds bilaterally with a few scattered rhonchi and crackles noted. No intercostal retractions. HEART: S1, S2 are muffled ABDOMEN: Soft. Bowel sounds are present. No masses. No tenderness. EXTREMITIES: No pedal edema. No calf tenderness. NEUROLOGICAL: Patient is lethargic although arousable, alert and oriented x1. confused. Rightward gaze although this does not appear new and not following commands. diffusely weak. Assessment: Acute bilateral pneumonia with sepsis, present on admission with possible gram- negative Possible acute urinary tract infection, present on admission Change in mental status, acute metabolic encephalopathy, with no real improvement and neurology work-up in progress, neurology consulted. 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 Multiple medical complex issues ongoing and patient's mentation continues to be confused and continued with extreme weakness and fatigue. Neurology work up including neuro consult, EEG, CT brain ordered and negative for any bleed or acute stroke. WBC trending up and maintained on Levaquin and infectious disease consulted. Patient has indwelling Moscoso catheter for retention and urology has evaluated the patient recommending outpatient follow-up and possibly a voiding trial to monitor output. Oral intake continues to be poor and encouraged oral intake. Per nursing staff medications being crushed and in applesauce or yogurt and not following commands to swallow and spitting it out. Patient is extremely weak and lethargic and continues with confusion. Due to multiple complex medical issues, prognosis is extremely guarded. Further recommendations to follow based on the clinical course of the patient. Objective - Vital Signs Vital signs: Vital Signs Temp 98.8 F 07/08/21 08:00 Pulse 100 07/08/21 08:40 Resp 16 07/08/21 08:00 BP 143/75 07/08/21 08:00 Pulse Ox 93 L 07/08/21 08:00 Intake & Output 07/07/21 07/08/21 07/08/21 18:59 06:59 18:59 Output Total 1 626 Balance -1 -626 Weight 52.5 kg 51.5 kg Output: Urine 625 Stool 1 1 Other: Voiding Method Indwelling Catheter Indwelling Catheter Indwelling Catheter # Bowel Movements 1 - Labs CBC & Chem 7: 07/08/21 09:26 07/08/21 09:26 Labs: Abnormal Lab Results - Last 24 Hours (Table) 07/07/21 07/07/21 07/07/21 Range/Units 09:50 09:50 10:56 WBC 11.3 H (3.8-10.6) k/uL Hgb 10.7 L (11.4-16.0) gm/dL MCV 72.9 L (80.0-100.0) fL MCH 21.6 L (25.0-35.0) pg MCHC 29.6 L (31.0-37.0) g/dL RDW 18.3 H (11.5-15.5) % Neutrophils # 8.5 H (1.3-7.7) k/uL Potassium 3.4 L (3.5-5.1) mmol/L Chloride 111 H (98-107) mmol/L Carbon Dioxide 16 L (22-30) mmol/L BUN 20 H (7-17) mg/dL Glucose 117 H (74-99) mg/dL POC Glucose (mg/dL) 242 H (75-99) mg/dL 07/07/21 07/07/21 07/08/21 Range/Units 16:21 20:00 05:33 WBC (3.8-10.6) k/uL Hgb (11.4-16.0) gm/dL MCV (80.0-100.0) fL MCH (25.0-35.0) pg MCHC (31.0-37.0) g/dL RDW (11.5-15.5) % Neutrophils # (1.3-7.7) k/uL Potassium (3.5-5.1) mmol/L Chloride (98-107) mmol/L Carbon Dioxide (22-30) mmol/L BUN (7-17) mg/dL Glucose (74-99) mg/dL POC Glucose (mg/dL) 138 H 126 H 159 H (75-99) mg/dL 07/08/21 Range/Units 09:26 WBC 17.9 H (3.8-10.6) k/uL Hgb 11.2 L (11.4-16.0) gm/dL MCV 72.5 L (80.0-100.0) fL MCH 20.9 L (25.0-35.0) pg MCHC 28.8 L (31.0-37.0) g/dL RDW 18.5 H (11.5-15.5) % Neutrophils # 15.2 H (1.3-7.7) k/uL Potassium (3.5-5.1) mmol/L Chloride (98-107) mmol/L Carbon Dioxide (22-30) mmol/L BUN (7-17) mg/dL Glucose (74-99) mg/dL POC Glucose (mg/dL) (75-99) mg/dL Microbiology - Last 24 Hours (Table) 07/02/21 15:51 Blood Culture - Preliminary Blood No Growth after 120 hours
[2021-07-09 06:00] LABS: Glucose,Whole Blood 191 mg/dL (75-99)
[2021-07-09] MEDS: INSULIN ASPART (NovoLOG) 100 UNIT/ML VIAL SQ SCH ×7 (06:02→20:15)
[2021-07-09] MEDS: PANTOPRAZOLE 40 MG TABLET PO SCH (06:04)
[2021-07-09] MEDS: predniSONE 20 MG TAB PO SCH (07:41)
[2021-07-09] MEDS: ENOXAPARIN 40 MG/0.4 ML SYRINGE SQ SCH (08:31)
[2021-07-09] MEDS: LACOSAMIDE IV 50 MG in SODIUM CHLORIDE 0.9% 50 ML IVPB SCH (08:31)
[2021-07-09] MEDS: IPRATROPIUM-ALBUTEROL 3 ML NEB INHALATION SCH ×4 (08:34→19:42)
[2021-07-09] MEDS: SYMBICORT 160-4.5 MCG INHALER INHALATION SCH ×3 (08:35→19:37)
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
[2021-07-09] MEDS: FOLIC ACID 1 MG TAB PO SCH (12:09)
[2021-07-09] MEDS: THIAMINE 100 MG TAB PO SCH (12:09)
[2021-07-09] MEDS: MULTIVITAMINS, THERA 1 EACH TAB PO SCH (12:09)
[2021-07-09] MEDS ORDERED: LORazepam 2 MG/ML INJ IV ONE (12:57)
[2021-07-09 13:45] LABS: Anisocytosis Slight; Basophils % (A) 0 %; Eosinophils # (A) 0.1 k/uL (0-0.7); Eosinophils % (A) 1 %; HCT 31.8 % (34.0-46.0); HGB 9.8 gm/dL (11.4-16.0); Hypochromasia Moderate; Lymphocytes # (A) 0.7 k/uL (1.0-4.8); Lymphocytes % (A) 7 %; MCH 21.5 pg (25.0-35.0); MCHC 30.8 g/dL (31.0-37.0); MCV 69.9 fL (80.0-100.0); Mean Platelet Volume 7.7; Microcytosis Marked; Monocytes # (A) 0.6 k/uL (0-1.0); Monocytes % (A) 6 %; Neutrophils # (A) 9.2 k/uL (1.3-7.7); Neutrophils % (A) 85 %; Platelet Count 178 k/uL (150-450); Poikilocytosis Slight; RBC 4.55 m/uL (3.80-5.40); RDW 18.8 % (11.5-15.5); WBC 10.8 k/uL (3.8-10.6)
[2021-07-09 13:55] LABS: ALT 22 U/L (4-34); AST 29 U/L (14-36); African American GFR (CKD) >90 (>60 ml/min/1.73 sqM); Albumin 2.5 g/dL (3.5-5.0); Alkaline Phosphatase 77 U/L (38-126); Anion Gap 7 mmol/L; Blood Urea Nitrogen 10 mg/dL (7-17); Carbon Dioxide 28 mmol/L (22-30); Chloride 98 mmol/L (98-107); Glucose 205 mg/dL (74-99); Non-African American GFR(CKD) >90 (>60 ml/min/1.73 sqM); Potassium 2.8 mmol/L (3.5-5.1); Sodium 133 mmol/L (137-145); Total Bilirubin 0.5 mg/dL (0.2-1.3)
[2021-07-09] MEDS: POTASSIUM CHLORIDE 10 MEQ in WATER FOR INJECTION 1 100ML.BAG IVPB SCH ×6 (14:50→21:14)
[2021-07-09] MEDS: DEXTROSE 5% IN WATER 1,000 ML with SOD BICARB SYR 8.4% (1 MEQ/ML) 150 ML IV SCH (14:51)
--- NOTE | 2021-07-09 14:52 | P.PN ---
Subjective Progress Note Date: 07/09/21 The patient is seen at bedside and per the patient's nurse she is about the same today compared to yesterday. No improvement with 1mg of Ativan yesterday and start of Vimpat. No clinical seizure-like activity. Objective - Vital Signs Vital signs: Vital Signs Temp 98.1 F 07/09/21 08:00 Pulse 96 07/09/21 12:05 Resp 24 07/09/21 08:00 BP 147/86 07/09/21 08:00 Pulse Ox 96 07/09/21 08:37 Intake & Output 07/08/21 07/09/21 07/09/21 18:59 06:59 18:59 Output Total 200 600 Balance -200 -600 Weight 51 kg Output: Urine 200 600 Other: Voiding Method Indwelling Catheter Indwelling Catheter Indwelling Catheter - Exam GENERAL: The patient is lying and does not seem in acute distress. HENT is head rotated to left and seem fixed that way (per that how she normally is when lying). Difficulty flexing her neck. NEUROLOGICAL: Limited because of her condition. Higher mental function: The patient is awake but is non-responsive. She is not following commands. Cranial nerves: The pupils are round, dilated, about 5-6mm bilaterally and contricts to light bilaterally. Her eyes has preference to right but not as gaze deviated as yesterday to the right bilaterally. No facial weakness. Has facial echymosis over left side cheek, center of foreahead, nose. over (from recent fall outside hospital). Otherwise could not assess rest of cranial nerves. Motor: The strength could not be assessed. Increase tone throughout. With painful stimuli she withdrawl in all extremities except left upper extremity and grimace to pain over left upper. Atrophy over the right thigh (old). Cerebellum: Could not asses. Sensation: Could not asses. Reflexes (right/left): 2+ over left brachioradialis otherwise 0 throughout. Plantars are mute bilaterally. WORK-UP: Urine analysis on the first 1 was negative a most recent patient has a trace of leukocyte esterase and urine bacteria was rare and it looks cloudy and I'm not sure if the patient is developing underlying urinary tract infection. Urine tox screen is positive for opiates, Tri-Cyclen it's and benzo. The serum alcohol was less than 10. Coronavirus PCR was not detected. CT of the head on 07/02/2021 is reported as prior chronic small vessel ischemia. No change compared to old exam. No acute abnormality. Per Cerner review the CT of the head and there is no acute or subacute ischemia that's appreciable and there is no intraperitoneal hemorrhage. CT of the face is reported as negative CT scan of the facial bone. No fracture. Repeat CT head on 07/08/2021: Is reported as chronic small vessel ischemia. Mild atrophy. No change compared to recent exam. I personally reviewed the CT of the head and I do not see any acute or subacute ischemia and there is no intra-parenchymal hemorrhage. - Labs CBC & Chem 7: 07/09/21 13:30 07/09/21 13:30 Labs: Abnormal Lab Results - Last 24 Hours (Table) 07/08/21 07/08/21 07/09/21 Range/Units 16:50 20:23 05:58 WBC (3.8-10.6) k/uL Hgb (11.4-16.0) gm/dL Hct (34.0-46.0) % MCV (80.0-100.0) fL MCH (25.0-35.0) pg MCHC (31.0-37.0) g/dL RDW (11.5-15.5) % Neutrophils # (1.3-7.7) k/uL Lymphocytes # (1.0-4.8) k/uL Sodium (137-145) mmol/L Potassium (3.5-5.1) mmol/L Creatinine (0.52-1.04) mg/dL Glucose (74-99) mg/dL POC Glucose (mg/dL) 176 H 137 H 191 H (75-99) mg/dL Calcium (8.4-10.2) mg/dL Total Protein (6.3-8.2) g/dL Albumin (3.5-5.0) g/dL 07/09/21 07/09/21 Range/Units 13:30 13:30 WBC 10.8 H (3.8-10.6) k/uL Hgb 9.8 L (11.4-16.0) gm/dL Hct 31.8 L (34.0-46.0) % MCV 69.9 L (80.0-100.0) fL MCH 21.5 L (25.0-35.0) pg MCHC 30.8 L (31.0-37.0) g/dL RDW 18.8 H (11.5-15.5) % Neutrophils # 9.2 H (1.3-7.7) k/uL Lymphocytes # 0.7 L (1.0-4.8) k/uL Sodium 133 L (137-145) mmol/L Potassium 2.8 L (3.5-5.1) mmol/L Creatinine 0.45 L (0.52-1.04) mg/dL Glucose 205 H (74-99) mg/dL POC Glucose (mg/dL) (75-99) mg/dL Calcium 8.0 L (8.4-10.2) mg/dL Total Protein 5.0 L (6.3-8.2) g/dL Albumin 2.5 L (3.5-5.0) g/dL Microbiology - Last 24 Hours (Table) 07/02/21 15:51 Blood Culture - Final Blood No Growth after 144 hours Assessment and Plan Assessment: * Altered mental status (per patient's around 07/04 or 07/05/2021) with trending upward of leukocytosis and on examination had right gaze deviation: Encephalopathy of unknown cause. Rule out meningoencephalitis (but has no fever and feel less likely on diagnosis) and currently leukocytosis is trending down. Rule out seizure. Possibly has component of underlying i nfection (recurrent urinary tract infection and possibly left lower pneumonia) which she received treatment for and component metabolic encephalopathy (had sugars as low as 50's on 07/05/2021). 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 Likely will be done on 07/10/2021. But in the mean time, prophylactically treating patient for seizure. Ordered an addition 2mg of Ativan to see if any improvement and will increase Increased Vimpat from 50mg to 100mg every 12 hours. Ordered Stat MRI Brain w/o. Consulted anesthesiology team for lumbar puncture and I explained the the LP added to the patient's and he is in agreement (pending to be done) Consulted infection disease team. Odered TSH, vitamin B12, folate. Every 4 hours neuro checks. She is currently on thiamine 100 mg daily Patient is also on folic acid 1 mg daily. Pulmonary team is on board Defer the rest of the medical management to the primary team. Upon discharge, the patient needs to follow-up with her neurologist (Dr. Almeida) as outpatient. Plan is discussed with the patient's nurse. Damaso Ozuna M.D. Neuro-hospitalist Time with Patient: Less than 30
[2021-07-09] MEDS ORDERED: LORazepam 2 MG/ML INJ IV STA (14:53)
[2021-07-09 17:04] LABS: Glucose,Whole Blood 155 mg/dL (75-99)
[2021-07-09] MEDS: TAMSULOSIN 0.4 MG CAP.ER.24H PO SCH (17:10)
[2021-07-09 19:59] LABS: Glucose,Whole Blood 123 mg/dL (75-99)
[2021-07-09] MEDS: INSULIN DETEMIR (LEVEMIR) 100 UNIT/ML SYR SQ SCH (20:15)
[2021-07-09] MEDS: ACETAMINOPHEN SUPPOSITORY 650 MG SUPP RECTAL PRN (20:35)
[2021-07-09] MEDS: PRAVASTATIN SODIUM 20 MG TAB PO SCH (20:45)
--- NOTE | 2021-07-09 20:57 | XR ---
EXAMINATION TYPE: XR chest 1V portable DATE OF EXAM: 07/09/2021 COMPARISON: 07/05/2021 HISTORY: Fever TECHNIQUE: Single view FINDINGS: There is some blunting of the costophrenic angles. There is pleural thickening at the lung bases. There is right central venous catheter with tip in the right atrium. There are chest leads. IMPRESSION: Pleural reaction and atelectasis at the lung bases. No heart failure seen. Bilateral pleu ral effusions. No change compared to recent exam.
[2021-07-09 21:01] LABS: Appearance,Urine Clear (Clear); Bacteria,Urine Rare /hpf; Bilirubin,Urine Negative (Negative); Blood,Urine Negative (Negative); Color,Urine Yellow; Glucose,Urine (UA) Negative (Negative); Hyaline Casts,Urine 1 /lpf (0-2); Ketones,Urine 1+ (Negative); Leukocyte Esterase,Urine Negative (Negative); Mucus,Urine Rare /hpf; Nitrite,Urine Negative (Negative); PH, Urine 8.5 (5.0-8.0); Protein,Urine 2+ (Negative); RBC,Urine 2 /hpf (0-5); Specific Gravity,Urine 1.019 (1.001-1.035); Urobilinogen,Urine <2.0 mg/dL (<2.0); WBC,Urine 2 /hpf (0-5)
[2021-07-09] MEDS: LACOSAMIDE IV 100 MG in SODIUM CHLORIDE 0.9% 50 ML IVPB SCH (21:10)
[2021-07-09] MEDS: LEVOFLOXACIN 750MG-D5W PMX 750 MG in DEXTROSE/WATER 1 150ML.BAG IVPB SCH (21:51)
[2021-07-09] MEDS: ERTAPENEM 1 GM in SODIUM CHLORIDE 0.9% 50 ML IVPB SCH (22:28)
--- NOTE | 2021-07-10 02:10 | P.PN ---
Subjective Progress Note Date: 07/09/21 This is a 66-year-old female who was recently admitted with multiple medical problems including changes in mental status with possible bilateral pneumonia and possible acute urinary tract infection and is being closely monitored. Patient started on IV antibiotics in the form of Levaquin and pulmonary f ollowing as well. Patient recently had COVID-19 infection and has been having prolonged mental status changes secondary to Covid Jamey and post Covid syndrome and long-haul Covid per Dr. Almeida her neurologist. Patient continues to be extremely weak and clinically declining and continues with altered mental status and increased fatigue. Patient has continued poor oral intake and has been fed her half a yogurt and half of a juice this morning. Patient continues with an indwelling Trimble catheter and has been evaluated by urology recommending continuing with Trimble for retention with possibility of voiding trial is more responsive. Patient will need urology follow-up in the outpatient setting. Patient continues to be extremely weak and considering possible ECF for PT/OT therapy. Patient continues to be extremely nauseated with no vomiting when getting up and moving around and position changes. 07/08/2021 Patient is evaluated this morning and continues to be extremely lethargic and confused. Pulmonary following closely and neurology and ID consulted for continued AMS and WBC trending up despite being on IV antibiotics in the form of Levaquin. Oral intake is poor and patient is risk for aspiration and having difficulty taking medications and spitting them out. EEG ordered and CT of the brain. 07/09/2021 Patient is seen and evaluate this morning with no significant change from yesterday. Neurology following and has ordered stat EEG and MRI of the brain and patient is minimally responsive and continued confusion. Patient continues on IV levaquin and IV invanz added and Infectious disease following. Blood cultures and urinalysis with culture ordered. Patient is tachycardic and having temps. Code status was addressed with spouse and changed to no code. Chest xray shows pleural reaction and atelectasis at the lung bases, no heart failure seen with bilateral pleural effusions and no changes from previous exam. Patient is on 2L via NC. Potassium low at 2.8 today and will replace per protocol and repeat am labs. Review of systems: Unable to obtain as patient is currently confused and lethargic Labs: WBC is 10.8, hemoglobin is 9.8, platelets are 178, sodium is 133, potassium is 2.8, bun is 10, cr is 0.45, procalcitonin is 0.24 Active Medications Acetaminophen (Acetaminophen Tab 325 Mg Tab) 650 mg PO Q6HR PRN PRN Reason: Fever and/ or Pain Last Admin: 07/08/21 08:54 Dose: 650 mg Documented by: Acetaminophen (Acetaminophen Suppository 650 Mg Supp) 650 mg RECTAL Q6HR PRN PRN Reason: Fever and/ or Pain Last Admin: 07/09/21 20:35 Dose: 650 mg Documented by: Albuterol/Ipratropium (Ipratropium-Albuterol 3 Ml Neb) 3 ml INHALATION RT-QID [facility] Last Admin: 07/09/21 19:42 Dose: Not Given Documented by: Albuterol/Ipratropium (Ipratropium-Albuterol 3 Ml Neb) 3 ml INHALATION RT-Q2H PRN PRN Reason: Shortness Of Breath Or Wheezing Last Admin: 07/09/21 22:04 Dose: 3 ml Documented by: Artificial Tears (Artificial Tears-Hypromellose Drops 15 Ml Btl) 1 drops BOTH EYES TID PRN PRN Reason: Dry Eye(s) Last Admin: 07/03/21 17:33 Dose: 1 drops Documented by: Bisacodyl (Bisacodyl 10 Mg Supp) 10 mg RECTAL DAILY PRN PRN Reason: Constipation Budesonide/Formoterol Fumarate (Symbicort 160-4.5 Mcg Inhaler) 2 puff IN HALATION RT-BID [facility] Last Admin: 07/09/21 19:37 Dose: Not Given Documented by: Enoxaparin Sodium (Enoxaparin 40 Mg/0.4 Ml Syringe) 40 mg SQ DAILY [facility] Last Admin: 07/09/21 08:31 Dose: 40 mg Documented by: Folic Acid (Folic Acid 1 Mg Tab) 1 mg PO DAILY@1200 [facility] Last Admin: 07/09/21 12:09 Dose: Not Given Documented by: Sodium Chloride (Saline 0.9%) 1,000 mls @ 20 mls/hr IV .Q24H [facility] Last Admin: 07/09/21 02:57 Dose: Not Given Documented by: Sodium Bicarbonate 150 ml/ (Dextrose/Water) 1,150 mls @ 75 mls/hr IV .[id number] [facility] Last Admin: 07/09/21 14:51 Dose: 75 mls/hr Documented by: Levofloxacin 750 mg/ IV (Solution) 150 mls @ 100 mls/hr IVPB Q24H [facility] Last Admin: 07/09/21 21:51 Dose: 100 mls/hr Documented by: Lacosamide 100 mg/ Sodium (Chloride) 60 mls @ 100 mls/hr IVPB BID [facility] Last Admin: 07/09/21 21:10 Dose: 100 mls/hr Documented by: Ertapenem 1 gm/ Sodium (Chloride) 50 mls @ 100 mls/hr IVPB DAILY@2100 [facility]; Protocol Last Admin: 07/09/21 22:28 Dose: 100 mls/hr Documented by: Insulin Aspart (Insulin Aspart (Novolog) 100 Unit/Ml Vial) 0 unit SQ ACHS [facility]; Protocol Last Admin: 07/09/21 20:15 Dose: Not Given Documented by: Insulin Aspart (Insulin Aspart (Novolog) 100 Unit/Ml Vial) 6 unit SQ AC-TID [facility] Last Admin: 07/09/21 17:09 Dose: 6 unit Documented by: Insulin Detemir (Insulin Detemir (Levemir) 100 Unit/Ml Syr) 10 unit SQ HS [facility] Last Admin: 07/09/21 20:15 Dose: Not Given Documented by: Magnesium Hydroxide (Magnesium Hydroxide 2,400 Mg/10 Ml Cup) 1,200 mg PO QID PRN PRN Reason: Indigestion Last Admin: 07/04/21 11:55 Dose: 1,200 mg Documented by: Metoclopramide HCl (Metoclopramide 5 Mg/Ml 2 Ml Vial) 5 mg IVP Q6HR PRN PRN Reason: Nausea And Vomiting Last Admin: 07/08/21 20:40 Dose: 5 mg Documented by: Miscellaneous Information (Potassium Replacement Protocol 1 Each Misc) 1 each MISCELLANE DAILY PRN; Protocol PRN Reason: Per Protocol Multivitamins (Multivitamins, Thera 1 Each Tab) 1 each PO DAILY@1200 [facility] Last Admin: 07/09/21 12:09 Dose: Not Given Documented by: Naloxone HCl (Naloxone 0.4 Mg/Ml 1 Ml Vial) 0.2 mg IV Q2M PRN PRN Reason: Opioid Reversal Ondansetron HCl (Ondansetron 4 Mg/2 Ml Vial) 4 mg IVP Q6HR PRN PRN Reason: Nausea And Vomiting Last Admin: 07/07/21 09:02 Dose: 4 mg Documented by: Pantoprazole Sodium (Pantoprazole 40 Mg Tablet) 40 mg PO AC-BRKFST [facility] Last Admin: 07/09/21 06:04 Dose: Not Given Documented by: Pravastatin Sodium (Pravastatin Sodium 20 Mg Tab) 10 mg PO HS [facility] Last Admin: 07/09/21 20:45 Dose: Not Given Documented by: Prednisone (Prednisone 20 Mg Tab) 20 mg PO DAILY [facility] Last Admin: 07/09/21 07:41 Dose: Not Given Documented by: Tamsulosin HCl (Tamsulosin 0.4 Mg Cap.Er.24h) 0.4 mg PO PC-SUPPER [facility] Last Admin: 07/09/21 17:10 Dose: Not Given Documented by: Thiamine HCl (Thiamine 100 Mg Tab) 100 mg PO DAILY@1200 [facility] Last Admin: 07/09/21 12:09 Dose: Not Given Documented by: Physical exam: Gen: This is a 66-year-old female asleep and extremely lethargic, confused, ill- appearing, appears older than stated age, minimally responsive HEENT: Head is atraumatic, normocephalic. Pupils equal, round. Sclerae is anicteric. Continued nasal bruising noted NECK: Supple. No JVD. No lymphadenopathy. No thyromegaly. LUNGS: Diminished breath sounds bilaterally with a few scattered rhonchi and crackles noted. No intercostal retractions. HEART: S1, S2 are muffled ABDOMEN: Soft. Bowel sounds are present. No masses. No tenderness. EXTREMITIES: No pedal edema. No calf tenderness. NEUROLOGICAL: Patient is lethargic minimally responsive and not following commands . diffusely weak. Assessment: Acute bilateral pneumonia with sepsis, present on admission with possible gram- negative Possible acute urinary tract infection, present on admission Change in mental status, acute metabolic encephalopathy, with no real improvement and neurology work-up in progress, neurology following. Started on seizure prophlyaxis of Vimpat stat EEG ordered and mri of the brain. 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 Multiple medical complex issues ongoing and patient's mentation continues to be confused and continued with extreme weakness and fatigue. Neurology work up i ncluding neuro consult, EEG, CT brain ordered and negative for any bleed or acute stroke. LP ordered and MRI of the brain. Patient started on Vimpat and has been given IV ativan. WBC elevated and maintained on Levaquin and infectious disease following and also started on IV invanz with blood cultures and repeat urinalysis with culture ordered. Patient has indwelling Trimble catheter for retention and urology has evaluated the patient and will continue with trimble. Oral intake continues to be poor. Patient is extremely weak and lethargic and continues with confusion and minimally responsive. Code status was addressed with the and was changed to No code. Due to multiple complex medical issues, prognosis is extremely guarded and overall poor. Repeat labs ordered. Further recommendations to follow based on the clinical course of the patient. Objective - Vital Signs Vital signs: Vital Signs Temp 98.1 F 07/09/21 08:00 Pulse 96 07/09/21 12:05 Resp 24 07/09/21 08:00 BP 147/86 07/09/21 08:00 Pulse Ox 96 07/09/21 08:37 Intake & Output 07/08/21 07/09/21 07/09/21 18:59 06:59 18:59 Output Total 200 600 Balance -200 -600 Weight 51 kg Output: Urine 200 600 Other: Voiding Method Indwelling Catheter Indwelling Catheter Indwelling Catheter - Labs CBC & Chem 7: 07/09/21 13:30 07/09/21 13:30 Labs: Abnormal Lab Results - Last 24 Hours (Table) 07/08/21 07/08/21 07/09/21 Range/Units 16:50 20:23 05:58 WBC (3.8-10.6) k/uL Hgb (11.4-16.0) gm/dL Hct (34.0-46.0) % MCV (80.0-100.0) fL MCH (25.0-35.0) pg MCHC (31.0-37.0) g/dL RDW (11.5-15.5) % Neutrophils # (1.3-7.7) k/uL Lymphocytes # (1.0-4.8) k/uL Sodium (137-145) mmol/L Potassium (3.5-5.1) mmol/L Creatinine (0.52-1.04) mg/dL Glucose (74-99) mg/dL POC Glucose (mg/dL) 176 H 137 H 191 H (75-99) mg/dL Calcium (8.4-10.2) mg/dL Total Protein (6.3-8.2) g/dL Albumin (3.5-5.0) g/dL 07/09/21 07/09/21 Range/Units 13:30 13:30 WBC 10.8 H (3.8-10.6) k/uL Hgb 9.8 L (11.4-16.0) gm/dL Hct 31.8 L (34.0-46.0) % MCV 69.9 L (80.0-100.0) fL MCH 21.5 L (25.0-35.0) pg MCHC 30.8 L (31.0-37.0) g/dL RDW 18.8 H (11.5-15.5) % Neutrophils # 9.2 H (1.3-7.7) k/uL Lymphocytes # 0.7 L (1.0-4.8) k/uL Sodium 133 L (137-145) mmol/L Potassium 2.8 L (3.5-5.1) mmol/L Creatinine 0.45 L (0.52-1.04) mg/dL Glucose 205 H (74-99) mg/dL POC Glucose (mg/dL) (75-99) mg/dL Calcium 8.0 L (8.4-10.2) mg/dL Total Protein 5.0 L (6.3-8.2) g/dL Albumin 2.5 L (3.5-5.0) g/dL Microbiology - Last 24 Hours (Table) 07/02/21 15:51 Blood Culture - Final Blood No Growth after 144 hours
[2021-07-10] MEDS: SODIUM CHLORIDE 0.9% 1,000 ML IV SCH (05:20)
[2021-07-10] MEDS: PANTOPRAZOLE 40 MG TABLET PO SCH (05:59)
[2021-07-10 06:10] LABS: Glucose,Whole Blood 149 mg/dL (75-99)
[2021-07-10] MEDS: INSULIN ASPART (NovoLOG) 100 UNIT/ML VIAL SQ SCH ×7 (06:11→20:49)
[2021-07-10] MEDS: IPRATROPIUM-ALBUTEROL 3 ML NEB INHALATION SCH ×4 (07:49→21:00)
[2021-07-10] MEDS: SYMBICORT 160-4.5 MCG INHALER INHALATION SCH ×2 (07:58→21:20)
[2021-07-10] MEDS: ENOXAPARIN 40 MG/0.4 ML SYRINGE SQ SCH (08:59)
[2021-07-10] MEDS: LACOSAMIDE IV 100 MG in SODIUM CHLORIDE 0.9% 50 ML IVPB SCH ×2 (08:59→21:23)
[2021-07-10] MEDS: DEXTROSE 5% IN WATER 1,000 ML with SOD BICARB SYR 8.4% (1 MEQ/ML) 150 ML IV SCH (08:59)
[2021-07-10] MEDS: predniSONE 20 MG TAB PO SCH (08:59)
[2021-07-10] MEDS: ACETAMINOPHEN SUPPOSITORY 650 MG SUPP RECTAL PRN ×2 (09:17→18:53)
--- NOTE | 2021-07-10 10:17 | P.PN ---
Subjective Progress Note Date: 07/10/21 Seen patient at bedside for the patient's nurse her condition has been the same. No clinical seizure-like activity. Patient spiked a temperature of 101.6 yesterday around 1930 and has been getting Tylenol. Nurse infection disease was contacted via phone yesterday and Ertapenem was added in addition to Levaquin. Patient's addressed a CODE STATUS and the patient is no code Objective - Vital Signs Vital signs: Vital Signs Temp 99.9 F H 07/10/21 08:00 Pulse 108 H 07/10/21 08:01 Resp 17 07/10/21 08:00 BP 125/73 07/10/21 08:00 Pulse Ox 96 07/10/21 08:00 Intake & Output 07/09/21 07/10/21 07/10/21 18:59 06:59 18:59 Output Total 400 200 Balance -400 -200 Weight 52 kg Output: Urine 400 200 Other: Voiding Method Indwelling Catheter Indwelling Catheter Indwelling Catheter - Exam GENERAL: The patient is lying and does not seem in acute distress while resting. HENT is head rotated to left and seem fixed that way (per that how she normally is when lying). Somewhat easier to flex her neck compared to the last two days. NEUROLOGICAL: Limited because of her condition. Higher mental function: The patient is comatose. GCS 6 ( E1, V1, M4). She is non-responsive and not following commands. All she says is ouch with painful stimuli. Cranial nerves: The pupils are round, dilated, about 5-6mm bilaterally and contricts to light bilaterally. Her eyes has preference to right but not as gaze deviated as two days ago. No facial weakness. Has facial echymosis over left side cheek, and center of nasal region. over (from recent fall outside hospital). Otherwise could not assess rest of cranial nerves. Motor: The strength could not be assessed. Increase tone throughout. With painful stimuli she withdrawl in all extremities except left upper extremity and grimace to pain over left upper. Atrophy over the right thigh (old). Cerebellum: Could not asses. Sensation: Could not asses. Reflexes (right/left): 2+ over left brachioradialis otherwise 0 throughout. Plantars are mute bilaterally. WORK-UP: TSH is a 1.170. Vitamin B-12 is 1342 serum folate is 16.90. AST of 529 and ALT of 22. Ammonia is less than 9 Urine analysis on the first 1 was negative a most recent patient has a trace of leukocyte esterase and urine bacteria was rare and it looks cloudy and I'm not sure if the patient is developing underlying urinary tract infection. Urine tox screen is positive for opiates, Tri-Cyclen it's and benzo. The serum alcohol was less than 10. Coronavirus PCR was not detected. Influenza A and B are not detected. CT of the head on 07/02/2021 is reported as prior chronic small vessel ischemia. No change compared to old exam. No acute abnormality. Per Cerner review the CT of the head and there is no acute or subacute ischemia that's appreciable and there is no intraperitoneal hemorrhage. CT of the face is reported as negative CT scan of the facial bone. No fracture. Repeat CT head on 07/08/2021: Is reported as chronic small vessel ischemia. Mild atrophy. No change compared to recent exam. I personally reviewed the CT of the head and I do not see any acute or subacute ischemia and there is no intra-parenchymal hemorrhage. - Labs CBC & Chem 7: 07/09/21 13:30 07/09/21 13:30 Labs: Abnormal Lab Results - Last 24 Hours (Table) 07/09/21 07/09/21 07/09/21 Range/Units 13:30 13:30 13:30 WBC 10.8 H (3.8-10.6) k/uL Hgb 9.8 L (11.4-16.0) gm/dL Hct 31.8 L (34.0-46.0) % MCV 69.9 L (80.0-100.0) fL MCH 21.5 L (25.0-35.0) pg MCHC 30.8 L (31.0-37.0) g/dL RDW 18.8 H (11.5-15.5) % Neutrophils # 9.2 H (1.3-7.7) k/uL Lymphocytes # 0.7 L (1.0-4.8) k/uL Sodium 133 L (137-145) mmol/L Potassium 2.8 L (3.5-5.1) mmol/L Creatinine 0.45 L (0.52-1.04) mg/dL Glucose 205 H (74-99) mg/dL POC Glucose (mg/dL) (75-99) mg/dL Calcium 8.0 L (8.4-10.2) mg/dL Total Protein 5.0 L (6.3-8.2) g/dL Albumin 2.5 L (3.5-5.0) g/dL Vitamin B12 (200.0-944.0) pg/mL Procalcitonin 0.25 H (0.02-0.09) ng/mL Urine pH (5.0-8.0) Urine Protein (Negative) Urine Ketones (Negative) Urine Bacteria (None) /hpf Urine Mucus (None) /hpf 07/09/21 07/09/21 07/09/21 Range/Units 14:56 17:02 19:58 WBC (3.8-10.6) k/uL Hgb (11.4-16.0) gm/dL Hct (34.0-46.0) % MCV (80.0-100.0) fL MCH (25.0-35.0) pg MCHC (31.0-37.0) g/dL RDW (11.5-15.5) % Neutrophils # (1.3-7.7) k/uL Lymphocytes # (1.0-4.8) k/uL Sodium (137-145) mmol/L Potassium (3.5-5.1) mmol/L Creatinine (0.52-1.04) mg/dL Glucose (74-99) mg/dL POC Glucose (mg/dL) 155 H 123 H (75-99) mg/dL Calcium (8.4-10.2) mg/dL Total Protein (6.3-8.2) g/dL Albumin (3.5-5.0) g/dL Vitamin B12 1342.0 H (200.0-944.0) pg/mL Procalcitonin (0.02-0.09) ng/mL Urine pH (5.0-8.0) Urine Protein (Negative) Urine Ketones (Negative) Urine Bacteria (None) /hpf Urine Mucus (None) /hpf 07/09/21 07/10/21 Range/Units 20:25 06:09 WBC (3.8-10.6) k/uL Hgb (11.4-16.0) gm/dL Hct (34.0-46.0) % MCV (80.0-100.0) fL MCH (25.0-35.0) pg MCHC (31.0-37.0) g/dL RDW (11.5-15.5) % Neutrophils # (1.3-7.7) k/uL Lymphocytes # (1.0-4.8) k/uL Sodium (137-145) mmol/L Potassium (3.5-5.1) mmol/L Creatinine (0.52-1.04) mg/dL Glucose (74-99) mg/dL POC Glucose (mg/dL) 149 H (75-99) mg/dL Calcium (8.4-10.2) mg/dL Total Protein (6.3-8.2) g/dL Albumin (3.5-5.0) g/dL Vitamin B12 (200.0-944.0) pg/mL Procalcitonin (0.02-0.09) ng/mL Urine pH 8.5 H (5.0-8.0) Urine Protein 2+ H (Negative) Urine Ketones 1+ H (Negative) Urine Bacteria Rare H (None) /hpf Urine Mucus Rare H (None) /hpf Assessment and Plan Assessment: * Altered mental status (per patient's around 07/04 or 07/05/2021) with trending upward of leukocytosis, pyrexia and on examination had right gaze deviation: Encephalopathy of unknown cause. Rule out meningoencephalitis (but this stay did not have fever until recently and feel less likely on diagnosis) and currently leukocytosis is trending down. Rule out seizure. Possibly has component of underlying infection (recurrent urinary tract infection and possibly left lower pneumonia) which she received treatment for and component metabolic encephalopathy (had sugars as low as 50's on 07/05/2021). 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 But in the mean time, prophylactically treating patient for seizure (Vimpat 100mg every 12 hours and that is to be continued). Stat MRI Brain w/ and w/o is pending. Consulted anesthesiology team for lumbar puncture and I explained the the LP added to the patient's and he is in agreement (pending to be done) Consulted infection disease team. Every 4 hours neuro checks. She is currently on thiamine 100 mg daily Patient is also on folic acid 1 mg daily. Pulmonary team is on board Defer the rest of the medical management to the primary team. Upon discharge, the patient needs to follow-up with her neurologist (Dr. Almeida) as outpatient. Condition: Seem very critical CODE STATUS: No CPR or intubation (per nurse it was addressed by patient's hus band yesterday) Plan is discussed with the patient's nurse. Dr. Sands will start neurology service tomorrow AM. Damaso Ozuna M.D. Neuro-hospitalist Time with Patient: Less than 30
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
[2021-07-10] MEDS: THIAMINE 100 MG TAB PO SCH (12:02)
[2021-07-10] MEDS: FOLIC ACID 1 MG TAB PO SCH (12:02)
[2021-07-10] MEDS: MULTIVITAMINS, THERA 1 EACH TAB PO SCH (12:02)
[2021-07-10 12:03] LABS: Glucose,Whole Blood 181 mg/dL (75-99)
[2021-07-10 12:25] LABS: Anisocytosis Slight; Basophils % (A) 0 %; Eosinophils % (A) 0 %; HCT 32.2 % (34.0-46.0); HGB 9.7 gm/dL (11.4-16.0); Hypochromasia Marked; Lymphocytes % (A) 8 %; MCH 22.2 pg (25.0-35.0); MCHC 30.1 g/dL (31.0-37.0); MCV 73.6 fL (80.0-100.0); Mean Platelet Volume 7.5; Microcytosis Moderate; Monocytes # (A) 0.6 k/uL (0-1.0); Monocytes % (A) 5 %; Neutrophils # (A) 10.5 k/uL (1.3-7.7); Neutrophils % (A) 84 %; Platelet Count 199 k/uL (150-450); RBC 4.38 m/uL (3.80-5.40); WBC 12.5 k/uL (3.8-10.6)
[2021-07-10 12:50] LABS: African American GFR (CKD) >90 (>60 ml/min/1.73 sqM); Anion Gap 9 mmol/L; Blood Urea Nitrogen 13 mg/dL (7-17); Calcium 7.8 mg/dL (8.4-10.2); Carbon Dioxide 25 mmol/L (22-30); Chloride 97 mmol/L (98-107); Glucose 162 mg/dL (74-99); Non-African American GFR(CKD) >90 (>60 ml/min/1.73 sqM); Potassium 3.2 mmol/L (3.5-5.1); Sodium 131 mmol/L (137-145)
--- NOTE | 2021-07-10 12:54 | P.CONS ---
History of Present Illness - Reason for Consult Consult date: 07/09/21 leukocytosis with altered mentation Requesting physician: Damaso Ozuna - Chief Complaint weakness x few days - History of Present Illness History of present illness : Patient is 66-year-old female who has been brought into the ER more than a week ago on 07/02/2021 for evaluation of lethargy patient was noticed to be lethargic for a day before presentation to the hospital patient on presentation to the ER was afebrile and no fever has recorded subsequently patient did have a elevated white count admission was 17,000 that initially came down but is up to 78.9 today patient have mild elevated D-dimer creatinine was normal limits observe normal patient did have multiple UA during this admission and has been negative urine toxin was positive for opiates tricyclic and benzo serrano PCR has been negative patient did have a chest x-ray on admission congestive heart failure with left lower lobe infiltrate and atelectasis patient did have a CT of the brain with no bleed CT of the face was negative for any fracture as well as the patient did have a bruise on the left cheek area neurology was consulted who was subsequently consulted infectious disease because of her elevated white count most of the information has been obtained from review the chart as the patient did not provide any history no family member was available at the time of evaluation, LP has been ordered and waiting for it to be completed Review of system: Positive point has been mentioned in HPI complete review could not be obtained because of underlying mental status Past medical history : Reviewed, documented below Past surgical history : Reviewed, documented below Social history: Reviewed, documented below Medications: Reviewed, as documented below EXAMINATION: Vital sigans= Reviewed and documented below GENERAL DESCRIPTION: Elderly female lying in bed, no distress. No tachypnea or accessory muscle of respiration use. HEENT: Shows Pallor , no scleral icterus. Oral mucous membrane is dry. Patient did have bruising to the left cheek and the bridge of the nose no redness NECK: Trachea central, no thyromegaly. LUNGS: Unlabored breathing. Decreased breath sound at the base HEART: S1, S2, regular rate and rhythm. ABDOMEN: Soft, no tenderness , guarding or rigidity EXTREMITIES: No edema of feet. SKIN: No rash, no masses palpable. NEUROLOGICAL: The patient is lethargic orientation could not be determined neck was supple the LABS AND RADIOLOGY: Reviewed results see below Assessment : 1-patient with a leukocytosis in this patient has been admitted to hospital more than a week ago for evaluation of weakness and debility patient initial work-up has been negative for any infectious etiology with a negative UA chest x-ray does show any consolidation patient now with worsening of her white count but no fever with no obvious focus of infection could related to the large bruise the patient has on her left cheek area versus aspiration and pneumonitis underlying OPERATER infection less likely but not done excluded 2-patient with multiple antibiotic allergies that would limit the number of antibiotics safe to use Plan: 1-blood cultures will be obtained and we will check a CRP procalcitonin chest x-ray 2-await LP to be completed 3-we will empirically add Invanz on the basis of her multiple antibiotic allergies We will follow on clinical condition and cultures to further adjust medication if needed Thank you for this consultation we will follow the patient along with you Past Medical History Past Medical History: Asthma, COPD, Diabetes Mellitus, Eye Disorder, Fibromyalgia, GERD/Reflux, Hyperlipidemia, Hypertension, Musculoskeletal Disorder, Pneumonia, Respiratory Disorder, Skin Disorder Additional Past Medical History / Comment(s): Bronchial asthma, tracheobronchomalacia, common variable immunoglobulin deficiency. Chronic back problems. chronic steroid use, suspected component of adrenal insufficiency due to chronic steroid use. Hiatal hernia. PAST [employer] HISTORY: She has no history of STDs. Pneumonia / In ICU in [place] after Back surgery - March 2019. Mycobacterium gordonae soft tissue infection. cataracts, glaucoma, fibromyalgia, chronic pain, compression fracture of the spine. History of Any Multi-Drug Resistant Organisms: MRSA Year Discovered:: 2010 MDRO Source:: right hand Past Surgical History: Appendectomy, Back Surgery, Breast Surgery, Cholecystectomy, Tubal Ligation Additional Past Surgical History / Comment(s): MULT BRONCHS, WASHINGS, LAST 04/17/14. EXC [facility] CATARACT. BLEPHAROPLASTY/ R&L BREAST BIOPSIES; PORT A CATH IN LEFT CHEST-CHANGED TO RT CHEST,EXC MYCOBACTERIUM AREAS RT ARM 2011; UPPER TEETH EXTRACTED. RT SALPINGECTOMY/FALLOPIAN TUBE REMOVED, I&D BOIL.Jul [facility] EYE AND MUSCLE SURGERY; - mouth (bone) surgery. Pain pump insertion to left buttocks - October 2016. Colonoscopy 2014. Hiatal hernia surgeries 2014&2015. Back surgery (Decompresssion) - February 2019 Past Anesthesia/Blood Transfusion Reactions: Motion Sickness, Postoperative Nausea & Vomiting (PONV) Past Psychological History: Anxiety, Depression Additional Psychological History / Comment(s): . Lives in the family home with her . Not employed outside of the home. Lifelong nonsmoker. No significant history of alcohol use. No history of recreational drug use. No international travels. There are pet dogs in the home. There are still children in the home that they are responsible for. Smoking Status: Never smoker Past Alcohol Use History: None Reported Past Drug Use History: None Reported - Past Family History Mother Family Medical History: Cancer Additional Family Medical History / Comment(s): BREAST CANCER. Father Additional Family Medical History / Comment(s): r/t suicide Medications and Allergies Home Medications Medication Instructions Recorded Confirmed Type traZODone HCL 75 mg PO HS 09/10/16 07/02/21 History Fluticasone/Salmeterol [Advair Hfa 2 puff INHALATION RT-BID 04/09/19 07/02/21 History 230-21 Mcg Inhaler] ALPRAZolam [Xanax] 0.25 mg PO HS PRN 07/21/20 07/02/21 History Pantoprazole [Protonix] 40 mg PO DAILY 07/21/20 07/02/21 History Pravastatin Sodium [Pravachol] 10 mg PO HS 07/21/20 07/02/21 History Promethazine 6.25MG/5Ml [Phenergan 6.25 mg PO DIRECTED PRN 07/21/20 07/02/21 History Syrup] Acetaminophen Tab [Tylenol] 650 mg PO Q6HR PRN tab 07/27/20 07/02/21 Rx Denosumab [Prolia] 60 mg SQ Q180D 03/03/21 07/02/21 History Glucagon Emergency Kit 1 mg IM ONCE PRN 03/03/21 07/02/21 History Insulin Aspart [NovoLOG Flexpen] 6 units SQ AC-TID 03/03/21 07/02/21 History Insulin Glargine,Hum.rec.anlog 10 unit SQ HS 03/03/21 07/02/21 History [Lantus Solostar Pen] busPIRone HCL 30 mg PO BID 03/03/21 07/02/21 History ALPRAZolam [Xanax] 0.5 mg PO TID PRN 05/15/21 07/02/21 History Furosemide [Lasix] 40 mg PO TID 05/15/21 07/02/21 History HYDROcodone/APAP 7.5-325MG [[place] 1 tab PO Q4H PRN 05/15/21 07/02/21 History 7.5-325] Potassium Chloride [Klor-Con 20] 60 meq PO BID 05/15/21 07/02/21 History predniSONE 20 mg PO DAILY 05/15/21 07/02/21 History Ipratropium-Albuterol Nebulize 3 ml INHALATION RT-QID #120 ml 07/05/21 Rx [Duoneb 0.5 mg-3 mg/3 ml Soln] Levofloxacin [Levaquin] 750 mg PO DAILY 7 Days #7 tab 07/05/21 Rx Multivitamins, Thera [Multivitamin] 1 tab PO DAILY #30 tablet 07/05/21 Rx Spironolactone [Aldactone] 25 mg PO DAILY #30 07/05/21 07/02/21 Rx Escitalopram [Lexapro] 20 mg PO DAILY 07/07/21 07/07/21 History Allergies Allergy/AdvReac Type Severity Reaction Status Date / Time crisaborole [From Eucrisa] Allergy Rash/Hives Verified 07/02/21 13:57 cefuroxime axetil AdvReac Severe Abdominal Verified 07/02/21 13:57 [From Ceftin] Pain ciprofloxacin HCl AdvReac Severe Abdominal Verified 07/02/21 13:57 [From Cipro] Pain erythromycin base AdvReac Unknown Abdominal Verified 07/02/21 13:57 [Erythromycin Base] Pain sulfamethoxazole AdvReac Unknown Abdominal Verified 07/02/21 13:57 [From Bactrim] Pain trimethoprim [From Bactrim] AdvReac Unknown Abdominal Verified 07/02/21 13:57 Pain indomethacin sodium AdvReac severe Verified 07/02/21 13:57 [From Indocin] Confusion NSAIDS (Non-Steroidal AdvReac Dyspnea Verified 07/02/21 13:57 Anti-Inflamma Penicillins AdvReac Nausea & Verified 07/02/21 13:57 Vomiting Sulfa (Sulfonamide AdvReac Abdominal Verified 07/02/21 13:57 Antibiotics) Pain Physical Exam Vitals: Vital Signs Temp Pulse Pulse Resp BP Pulse Ox 07/09/21 12:05 96 07/09/21 11:57 102 H 07/09/21 09:01 96 07/09/21 08:37 100 96 07/09/21 08:00 98.1 F 104 H 24 147/86 95 07/09/21 04:20 98.8 F 110 H 20 153/63 95 07/09/21 01:10 22 07/08/21 23:20 99.4 F 116 H 22 132/61 95 07/08/21 20:15 24 07/08/21 19:35 98 07/08/21 19:25 100 07/08/21 17:55 97.4 F L 112 H 36 H 163/71 92 L 07/08/21 16:00 99.5 F 105 H 146/66 95 Intake and Output 07/09/21 07/09/21 07/09/21 06:59 14:59 22:59 Output Total 600 Balance -600 Output: Urine 600 Other: Voiding Method Indwelling Catheter Indwelling Catheter Weight 51 kg Results CBC & Chem 7: 07/10/21 11:35 07/10/21 11:35 Labs: Abnormal Lab Results - Last 24 Hours (Table) 07/08/21 07/08/21 07/09/21 Range/Units 16:50 20:23 05:58 WBC (3.8-10.6) k/uL Hgb (11.4-16.0) gm/dL Hct (34.0-46.0) % MCV (80.0-100.0) fL MCH (25.0-35.0) pg MCHC (31.0-37.0) g/dL RDW (11.5-15.5) % Neutrophils # (1.3-7.7) k/uL Lymphocytes # (1.0-4.8) k/uL Sodium (137-145) mmol/L Potassium (3.5-5.1) mmol/L Creatinine (0.52-1.04) mg/dL Glucose (74-99) mg/dL POC Glucose (mg/dL) 176 H 137 H 191 H (75-99) mg/dL Calcium (8.4-10.2) mg/dL Total Protein (6.3-8.2) g/dL Albumin (3.5-5.0) g/dL 07/09/21 07/09/21 Range/Units 13:30 13:30 WBC 10.8 H (3.8-10.6) k/uL Hgb 9.8 L (11.4-16.0) gm/dL Hct 31.8 L (34.0-46.0) % MCV 69.9 L (80.0-100.0) fL MCH 21.5 L (25.0-35.0) pg MCHC 30.8 L (31.0-37.0) g/dL RDW 18.8 H (11.5-15.5) % Neutrophils # 9.2 H (1.3-7.7) k/uL Lymphocytes # 0.7 L (1.0-4.8) k/uL Sodium 133 L (137-145) mmol/L Potassium 2.8 L (3.5-5.1) mmol/L Creatinine 0.45 L (0.52-1.04) mg/dL Glucose 205 H (74-99) mg/dL POC Glucose (mg/dL) (75-99) mg/dL Calcium 8.0 L (8.4-10.2) mg/dL Total Protein 5.0 L (6.3-8.2) g/dL Albumin 2.5 L (3.5-5.0) g/dL Microbiology - Last 24 Hours (Table) 07/02/21 15:51 Blood Culture - Final Blood No Growth after 144 hours
--- NOTE | 2021-07-10 17:02 | P.PN ---
Subjective Progress Note Date: 07/10/21 This is a 66-year-old female who was recently admitted with multiple medical problems including changes in mental status with possible bilateral pneumonia and possible acute urinary tract infection and is being closely monitored. Patient started on IV antibiotics in the form of Levaquin and pulmonary f ollowing as well. Patient recently had COVID-19 infection and has been having prolonged mental status changes secondary to Covid Jamey and post Covid syndrome and long-haul Covid per Dr. Almeida her neurologist. Patient continues to be extremely weak and clinically declining and continues with altered mental status and increased fatigue. Patient has continued poor oral intake and has been fed her half a yogurt and half of a juice this morning. Patient continues with an indwelling Trimble catheter and has been evaluated by urology recommending continuing with Trimble for retention with possibility of voiding trial is more responsive. Patient will need urology follow-up in the outpatient setting. Patient continues to be extremely weak and considering possible ECF for PT/OT therapy. Patient continues to be extremely nauseated with no vomiting when getting up and moving around and position changes. 07/08/2021 Patient is evaluated this morning and continues to be extremely lethargic and confused. Pulmonary following closely and neurology and ID consulted for continued AMS and WBC trending up despite being on IV antibiotics in the form of Levaquin. Oral intake is poor and patient is risk for aspiration and having difficulty taking medications and spitting them out. EEG ordered and CT of the brain. 07/09/2021 Patient is seen and evaluate this morning with no significant change from yesterday. Neurology following and has ordered stat EEG and MRI of the brain and patient is minimally responsive and continued confusion. Patient continues on IV levaquin and IV invanz added and Infectious disease following. Blood cultures and urinalysis with culture ordered. Patient is tachycardic and having temps. Code status was addressed with spouse and changed to no code. Chest xray shows pleural reaction and atelectasis at the lung bases, no heart failure seen with bilateral pleural effusions and no changes from previous exam. Patient is on 2L via NC. Potassium low at 2.8 today and will replace per protocol and repeat am labs. 07/10/2021 Patient is seen in follow up today and scheduled to undergo EEG and mri brain ordered as well. Neurology following and ongoing work-up in progress for altered mental status and continuing to be encephalopathic with a fixed gate and barely responsive. Patient is continued on prophylactic vimpat with no changes and no seizure activity noted. LP was ordered as well and awaiting brain MRI. Patient continues to be febrile and tachy and continued on IV invanz and levaquin. Blood cultures are negative and repeat has been ordered. Potassium continues to be low and will continue to replace and repeat labs. Prognosis is overall poor and guarded. No oral intake in the last 24-48 hours. Review of systems: Unable to obtain as patient is currently confused and lethargic Labs: WBC is 12.5, hemoglobin is 9.7, platelets are 199, sodium is 131, potassium is 3.2, bun is 13, cr is 0.53 Active Medications Acetaminophen (Acetaminophen Tab 325 Mg Tab) 650 mg PO Q6HR PRN PRN Reason: Fever and/ or Pain Last Admin: 07/08/21 08:54 Dose: 650 mg Documented by: Acetaminophen (Acetaminophen Suppository 650 Mg Supp) 650 mg RECTAL Q6HR PRN PRN Reason: Fever and/ or Pain Last Admin: 07/10/21 09:17 Dose: 650 mg Documented by: Albuterol/Ipratropium (Ipratropium-Albuterol 3 Ml Neb) 3 ml INHALATION RT-QID DIO Last Admin: 07/10/21 15:49 Dose: 3 ml Documented by: Albuterol/Ipratropium (Ipratropium-Albuterol 3 Ml Neb) 3 ml INHALATION RT-Q2H PRN PRN Reason: Shortness Of Breath Or Wheezing Last Admin: 07/09/21 22:04 Dose: 3 ml Documented by: Artificial Tears (Artificial Tears-Hypromellose Drops 15 Ml Btl) 1 drops BOTH EYES TID PRN PRN Reason: Dry Eye(s) Last Admin: 07/03/21 17:33 Dose: 1 drops Documented by: Bisacodyl (Bisacodyl 10 Mg Supp) 10 mg RECTAL DAILY PRN PRN Reason: Constipation Budesonide/Formoterol Fumarate (Symbicort 160-4.5 Mcg Inhaler) 2 puff INHALATION RT-BID DIO Last Admin: 07/10/21 07:58 Dose: Not Given Documented by: Enoxaparin Sodium (Enoxaparin 40 Mg/0.4 Ml Syringe) 40 mg SQ DAILY [facility] Last Admin: 07/10/21 08:59 Dose: 40 mg Documented by: Folic Acid (Folic Acid 1 Mg Tab) 1 mg PO DAILY@1200 [facility] Last Admin: 07/10/21 12:02 Dose: Not Given Documented by: Sodium Chloride (Saline 0.9%) 1,000 mls @ 20 mls/hr IV .Q24H [facility] Last Admin: 07/10/21 05:20 Dose: Not Given Documented by: Sodium Bicarbonate 150 ml/ (Dextrose/Water) 1,150 mls @ 75 mls/hr IV .[id number] [facility] Last Admin: 07/10/21 08:59 Dose: 75 mls/hr Documented by: Levofloxacin 750 mg/ IV (Solution) 150 mls @ 100 mls/hr IVPB Q24H [facility] Last Admin: 07/09/21 21:51 Dose: 100 mls/hr Documented by: Lacosamide 100 mg/ Sodium (Chloride) 60 mls @ 100 mls/hr IVPB BID [facility] Last Admin: 07/10/21 08:59 Dose: 100 mls/hr Documented by: Ertapenem 1 gm/ Sodium (Chloride) 50 mls @ 100 mls/hr IVPB DAILY@2100 [facility]; Protocol Last Admin: 07/09/21 22:28 Dose: 100 mls/hr Documented by: Insulin Aspart (Insulin Aspart (Novolog) 100 Unit/Ml Vial) 0 unit SQ ACHS [facility]; Protocol Last Admin: 07/10/21 12:16 Dose: 2 unit Documented by: Insulin Aspart (Insulin Aspart (Novolog) 100 Unit/Ml Vial) 6 unit SQ AC-TID [facility] Last Admin: 07/10/21 12:16 Dose: 6 unit Documented by: Insulin Detemir (Insulin Detemir (Levemir) 100 Unit/Ml Syr) 10 unit SQ HS [facility] Last Admin: 07/09/21 20:15 Dose: Not Given Documented by: Magnesium Hydroxide (Magnesium Hydroxide 2,400 Mg/10 Ml Cup) 1,200 mg PO QID PRN PRN Reason: Indigestion Last Admin: 07/04/21 11:55 Dose: 1,200 mg Documented by: Metoclopramide HCl (Metoclopramide 5 Mg/Ml 2 Ml Vial) 5 mg IVP Q6HR PRN PRN Reason: Nausea And Vomiting Last Admin: 07/08/21 20:40 Dose: 5 mg Documented by: Miscellaneous Information (Potassium Replacement Protocol 1 Each Misc) 1 each MISCELLANE DAILY PRN; Protocol PRN Reason: Per Protocol Multivitamins (Multivitamins, Thera 1 Each Tab) 1 each PO DAILY@1200 DIO Last Admin: 07/10/21 12:02 Dose: Not Given Documented by: Naloxone HCl (Naloxone 0.4 Mg/Ml 1 Ml Vial) 0.2 mg IV Q2M PRN PRN Reason: Opioid Reversal Ondansetron HCl (Ondansetron 4 Mg/2 Ml Vial) 4 mg IVP Q6HR PRN PRN Reason: Nausea And Vomiting Last Admin: 07/07/21 09:02 Dose: 4 mg Documented by: Pantoprazole Sodium (Pantoprazole 40 Mg Tablet) 40 mg PO AC-BRKFST [facility] Last Admin: 07/10/21 05:59 Dose: Not Given Documented by: Pravastatin Sodium (Pravastatin Sodium 20 Mg Tab) 10 mg PO HS [facility] Last Admin: 07/09/21 20:45 Dose: Not Given Documented by: Prednisone (Prednisone 20 Mg Tab) 20 mg PO DAILY [facility] Last Admin: 07/10/21 08:59 Dose: Not Given Documented by: Tamsulosin HCl (Tamsulosin 0.4 Mg Cap.Er.24h) 0.4 mg PO PC-SUPPER [facility] Last Admin: 07/09/21 17:10 Dose: Not Given Documented by: Thiamine HCl (Thiamine 100 Mg Tab) 100 mg PO DAILY@1200 D[facility] Last Admin: 07/10/21 12:02 Dose: Not Given Documented by: Physical exam: Gen: This is a 66-year-old female unresponsive and extremely lethargic, ill-ap pearing, appears older than stated age HEENT: Head is atraumatic, normocephalic. Pupils equal, round. Sclerae is anicteric. Continued nasal bruising noted NECK: Supple. No JVD. No lymphadenopathy. No thyromegaly. LUNGS: Diminished breath sounds bilaterally with a few scattered rhonchi and crackles noted. No intercostal retractions. HEART: S1, S2 are muffled ABDOMEN: Soft. Bowel sounds are present. No masses. No tenderness. EXTREMITIES: No pedal edema. No calf tenderness. NEUROLOGICAL: Patient is lethargic minimally responsive and not following commands . diffusely weak. Assessment: Acute bilateral pneumonia with sepsis, present on admission with possible gram- negative Possible acute urinary tract infection, present on admission hypokalemia Change in mental status, acute metabolic encephalopathy, with no real improvement and neurology work-up in progress, neurology following. Started on seizure prophlyaxis of Vimpat stat EEG ordered and mri of the brain. 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 Multiple medical complex issues ongoing and patient's mentation continues to be confused and continued with extreme weakness and fatigue. Minimally responsive and no oral intake over the last 2 days. Clinical status is deteriorating and prognosis overall remains quite guarded. Neurology work up including neuro consult, EEG, CT brain ordered and negative for any bleed or acute stroke. LP ordered and MRI of the brain. EEg was done and read pending. Patient started on Vimpat and no seizure like activity noted. WBC elevated and maintained on Levaquin and infectious disease following and also started on IV invanz with blood cultures and repeat urinalysis with culture ordered. Patient has indwelling Trimble catheter for retention and urology has evaluated the patient and will continue with trimble. Code status was addressed with the and was changed to No code. Due to multiple complex medical issues, prognosis is extremely guarded and overall poor. Repeat labs ordered. Further recommendations to follow based on the clinical course of the patient. Objective - Vital Signs Vital signs: Vital Signs Temp 99.9 F H 07/10/21 08:00 Pulse 108 H 07/10/21 08:01 Resp 17 07/10/21 08:00 BP 125/73 07/10/21 08:00 Pulse Ox 96 07/10/21 08:00 Intake & Output 07/09/21 07/10/21 07/10/21 18:59 06:59 18:59 Output Total 400 200 Balance -400 -200 Weight 52 kg Output: Urine 400 200 Other: Voiding Method Indwelling Catheter Indwelling Catheter Indwelling Catheter - Labs CBC & Chem 7: 07/10/21 11:35 07/10/21 11:35 Labs: Abnormal Lab Results - Last 24 Hours (Table) 07/09/21 07/09/21 07/09/21 Range/Units 13:30 13:30 13:30 WBC 10.8 H (3.8-10.6) k/uL Hgb 9.8 L (11.4-16.0) gm/dL Hct 31.8 L (34.0-46.0) % MCV 69.9 L (80.0-100.0) fL MCH 21.5 L (25.0-35.0) pg MCHC 30.8 L (31.0-37.0) g/dL RDW 18.8 H (11.5-15.5) % Neutrophils # 9.2 H (1.3-7.7) k/uL Lymphocytes # 0.7 L (1.0-4.8) k/uL Sodium 133 L (137-145) mmol/L Potassium 2.8 L (3.5-5.1) mmol/L Creatinine 0.45 L (0.52-1.04) mg/dL Glucose 205 H (74-99) mg/dL POC Glucose (mg/dL) (75-99) mg/dL Calcium 8.0 L (8.4-10.2) mg/dL Total Protein 5.0 L (6.3-8.2) g/dL Albumin 2.5 L (3.5-5.0) g/dL Vitamin B12 (200.0-944.0) pg/mL Procalcitonin 0.25 H (0.02-0.09) ng/mL Urine pH (5.0-8.0) Urine Protein (Negative) Urine Ketones (Negative) Urine Bacteria (None) /hpf Urine Mucus (None) /hpf 07/09/21 07/09/21 07/09/21 Range/Units 14:56 17:02 19:58 WBC (3.8-10.6) k/uL Hgb (11.4-16.0) gm/dL Hct (34.0-46.0) % MCV (80.0-100.0) fL MCH (25.0-35.0) pg MCHC (31.0-37.0) g/dL RDW (11.5-15.5) % Neutrophils # (1.3-7.7) k/uL Lymphocytes # (1.0-4.8) k/uL Sodium (137-145) mmol/L Potassium (3.5-5.1) mmol/L Creatinine (0.52-1.04) mg/dL Glucose (74-99) mg/dL POC Glucose (mg/dL) 155 H 123 H (75-99) mg/dL Calcium (8.4-10.2) mg/dL Total Protein (6.3-8.2) g/dL Albumin (3.5-5.0) g/dL Vitamin B12 1342.0 H (200.0-944.0) pg/mL Procalcitonin (0.02-0.09) ng/mL Urine pH (5.0-8.0) Urine Protein (Negative) Urine Ketones (Negative) Urine Bacteria (None) /hpf Urine Mucus (None) /hpf 07/09/21 07/10/21 Range/Units 20:25 06:09 WBC (3.8-10.6) k/uL Hgb (11.4-16.0) gm/dL Hct (34.0-46.0) % MCV (80.0-100.0) fL MCH (25.0-35.0) pg MCHC (31.0-37.0) g/dL RDW (11.5-15.5) % Neutrophils # (1.3-7.7) k/uL Lymphocytes # (1.0-4.8) k/uL Sodium (137-145) mmol/L Potassium (3.5-5.1) mmol/L Creatinine (0.52-1.04) mg/dL Glucose (74-99) mg/dL POC Glucose (mg/dL) 149 H (75-99) mg/dL Calcium (8.4-10.2) mg/dL Total Protein (6.3-8.2) g/dL Albumin (3.5-5.0) g/dL Vitamin B12 (200.0-944.0) pg/mL Procalcitonin (0.02-0.09) ng/mL Urine pH 8.5 H (5.0-8.0) Urine Protein 2+ H (Negative) Urine Ketones 1+ H (Negative) Urine Bacteria Rare H (None) /hpf Urine Mucus Rare H (None) /hpf
[2021-07-10 17:08] LABS: Glucose,Whole Blood 177 mg/dL (75-99)
--- NOTE | 2021-07-10 17:12 | EEG ---
ELECTROENCEPHALOGRAM REPORT DATE OF SERVICE: 07/10/2021. CLINICAL HISTORY: This is a 66-year-old woman with altered mental status. The video EEG is obtained to evaluate for seizure epileptiform activity. EEG TYPE: A routine 21-channel EEG is performed with video using the 10/20 electrode placement system. Relevant medication: Vimpat and Ativan. DESCRIPTION: Awake state is obtained. During awake state, the background consists of low to moderate voltage of 6- to 7 hertz theta activity that is nonrhythmic. At rare occasions, appears to have diffuse delta activity that is nonrhythmic. There is no sleep architecture seen. There is no focal slowing seen. Interictal and ictal is none. ACTIVATION PROCEDURE: Photic stimulation did not evoke a posterior driving response. There is no abnormality during the photic stimulation. Hyperventilation is not performed. CLINICAL INTERPRETATION: This is an abnormal routine EEG. The background slowing is suggestive of mild to moderate encephalopathy. There are no focal slowing, epileptiform discharges or seizure on the EEG. Clinical correlation is recommended. MMKHOI / MARRYN: [id number] / MTDD
[2021-07-10] MEDS: TAMSULOSIN 0.4 MG CAP.ER.24H PO SCH (17:20)
[2021-07-10] MEDS: POTASSIUM CHLORIDE 10 MEQ in WATER FOR INJECTION 1 100ML.BAG IVPB SCH ×4 (18:01→22:20)
[2021-07-10] MEDS: PRAVASTATIN SODIUM 20 MG TAB PO SCH (20:38)
[2021-07-10] MEDS: INSULIN DETEMIR (LEVEMIR) 100 UNIT/ML SYR SQ SCH (20:49)
[2021-07-10 20:59] LABS: Glucose,Whole Blood 216 mg/dL (75-99)
[2021-07-10] MEDS ORDERED: VANCOMYCIN IV PER PHARMACY 1 EACH MISC MISCELLANE PRN (22:04)
--- NOTE | 2021-07-11 00:42 | PN ---
PROGRESS NOTE DATE OF SERVICE: 07/10/2021 REASON FOR FOLLOWUP: Fever and bacteremia. INTERVAL HISTORY: The patient did spike a fever last night and again this evening of 101 degrees Fahrenheit. The patient remains lethargic and is unable to provide any history. The patient is hemodynamically stable, not on pressor support. No vomiting, diarrhea or any other changes reported by the nursing staff. PHYSICAL EXAMINATION: Blood pressure 135/70 with a pulse of 101, temperature of 101.6. She is 98% on L nasal cannula. General description is an elderly female lying in bed in no distress. Respiratory system: Unlabored breathing, decreased intensity of breath sounds. No wheeze. Heart S1, S2. Regular rate and rhythm. Abdomen soft, no tenderness. Extremities no edema of the feet. LABS: Hemoglobin is 9.7, white count of 12.5, creatinine 0.53. Blood culture with Gram- positive cocci. DIAGNOSTIC IMPRESSION AND PLAN: Patient with a fever, now with evidence of Gram-positive bacteremia. Vancomycin will be added. Blood culture will be repeated to document clearance of bacteremia. Continue supportive care. Prognosis remains guarded. MMODL / IJN: [id number] /
[2021-07-11] MEDS: VANCOMYCIN 1,000 MG in SODIUM CHLORIDE 0.9% 250 ML IVPB SCH ×3 (02:17→23:51)
[2021-07-11] MEDS: DEXTROSE 5% IN WATER 1,000 ML with SOD BICARB SYR 8.4% (1 MEQ/ML) 150 ML IV SCH (03:18)
[2021-07-11] MEDS: ERTAPENEM 1 GM in SODIUM CHLORIDE 0.9% 50 ML IVPB SCH ×2 (04:53→21:58)
[2021-07-11] MEDS: LEVOFLOXACIN 750MG-D5W PMX 750 MG in DEXTROSE/WATER 1 150ML.BAG IVPB SCH (04:53)
[2021-07-11] MEDS: SODIUM CHLORIDE 0.9% 1,000 ML IV SCH (04:54)
[2021-07-11 06:01] LABS: Glucose,Whole Blood 144 mg/dL (75-99)
[2021-07-11] MEDS: PANTOPRAZOLE 40 MG TABLET PO SCH (06:35)
[2021-07-11] MEDS: INSULIN ASPART (NovoLOG) 100 UNIT/ML VIAL SQ SCH ×7 (06:52→21:44)
[2021-07-11] MEDS: LACOSAMIDE IV 100 MG in SODIUM CHLORIDE 0.9% 50 ML IVPB SCH (08:40)
[2021-07-11] MEDS: ENOXAPARIN 40 MG/0.4 ML SYRINGE SQ SCH (08:40)
[2021-07-11] MEDS: IPRATROPIUM-ALBUTEROL 3 ML NEB INHALATION SCH ×4 (09:19→20:21)
[2021-07-11] MEDS: SYMBICORT 160-4.5 MCG INHALER INHALATION SCH ×2 (09:20→20:21)
[2021-07-11] MEDS: FOLIC ACID 1 MG TAB PO SCH (10:28)
[2021-07-11] MEDS: predniSONE 20 MG TAB PO SCH (10:28)
[2021-07-11 10:48] LABS: Anisocytosis Slight; Basophils % (A) 0 %; Eosinophils # (A) 0.1 k/uL (0-0.7); Eosinophils % (A) 0 %; HCT 30.7 % (34.0-46.0); HGB 9.2 gm/dL (11.4-16.0); Hypochromasia Moderate; Lymphocytes # (A) 0.8 k/uL (1.0-4.8); Lymphocytes % (A) 7 %; MCH 21.6 pg (25.0-35.0); MCHC 30.1 g/dL (31.0-37.0); MCV 71.7 fL (80.0-100.0); Mean Platelet Volume 7.5; Microcytosis Moderate; Monocytes # (A) 0.5 k/uL (0-1.0); Monocytes % (A) 4 %; Neutrophils # (A) 9.7 k/uL (1.3-7.7); Neutrophils % (A) 86 %; Platelet Count 238 k/uL (150-450); RBC 4.29 m/uL (3.80-5.40); RDW 18.4 % (11.5-15.5); WBC 11.3 k/uL (3.8-10.6)
[2021-07-11] MEDS: MULTIVITAMINS, THERA 1 EACH TAB PO SCH (11:46)
--- NOTE | 2021-07-11 11:49 | P.PN ---
Subjective Patient is a 66-year-old female admitted for severe encephalopathy etiology is not clear. Patient was receiving levofloxacin since admission which at this can you patient is still on ertapenem and I sent for a possible Pichardo gram-positive blood cultures although it turned out to be staph epidermidis. Patient doesn't have any clear clinical evidence of infection at this time. Patient was evaluated by multiple consultants including infectious disease and infectious disease regarding current to continue broad-spectrum antibodies for now patient did have leukocytosis which is improving although as mentioned above no obvious evidence of infection. Patient was also evaluated by neurology and patient will undergo MRI. Patient had an EEG which did not show any seizure focus although patient isn't currently on antiseizure medication. Discussed with the neurologist rounding today to see if this can be dyspnea. Patient has fixed bilateral dilated pupils because of which neurology recommended an MRI. Patient also had a cold recently. Patient is on steroids and patient has not been taking this because of patient is not taking any by mouth medications patient is alert and oriented 0 Physical exam: Gen: This is a 66-year-old female not oriented, ill-appearing, appears older than stated age HEENT: Head is atraumatic, normocephalic. Those are fixed and dilated. Sclerae is anicteric. Continued nasal bruising noted NECK: Supple. No JVD. No lymphadenopathy. No thyromegaly. LUNGS: Diminished breath sounds bilaterally with a few scattered rhonchi and crackles noted. No intercostal retractions. HEART: S1, S2 are muffled ABDOMEN: Soft. Bowel sounds are present. No masses. No tenderness. EXTREMITIES: No pedal edema. No calf tenderness. NEUROLOGICAL: As mentioned above Assessment: -Severe metabolic and toxic encephalopathy: Etiology is not clear patient is being treated for right lower lobe pneumonia although there is no obvious evidence of that. Patient was bacteremic with staph epidermidis which is mostly contamination infectious disease is following the patient. There is a high possibility that the patient has encephalopathy related to medications, patient has been on steroids for long time which can cause an [place] and patient was started on levofloxacin which can cause encephalopathy as well. Both of these medications were dyspnea would the patient doesn't improve then we will discuss can use other antibiotics as well followed by disc herniation of antiseizure medications. Patient will undergo MRI neurology is following the patient. Possibility of right lower lobe pneumonia which I cannot completely rule out at this time. Urinary retention, possibly acute versus chronic, continued with indwelling trimble catheter History of recent COVID-19 pneumonia: With the residual encephalopathic changes History of iron deficiency anemia Hyperlipidemia diabetes mellitus type 2 No code Objective - Vital Signs Vital signs: Vital Signs Temp 99.6 F 07/11/21 11:17 Pulse 111 H 07/11/21 11:17 Resp 18 07/11/21 11:26 BP 139/63 07/11/21 11:17 Pulse Ox 99 07/11/21 11:26 Intake & Output 07/10/21 07/11/21 07/11/21 18:59 06:59 18:59 Intake Total 0 0 Output Total 250 600 Balance -250 0 -600 Weight 53.5 kg Intake: Oral 0 0 Output: Urine 250 600 Other: Voiding Method Indwelling Catheter Indwelling Catheter Indwelling Catheter # Bowel Movements 0 - Labs CBC & Chem 7: 07/11/21 10:19 07/10/21 11:35 Labs: Abnormal Lab Results - Last 24 Hours (Table) 07/10/21 07/10/21 07/10/21 Range/Units 11:35 11:35 12:01 WBC 12.5 H (3.8-10.6) k/uL Hgb 9.7 L (11.4-16.0) gm/dL Hct 32.2 L (34.0-46.0) % MCV 73.6 L (80.0-100.0) fL MCH 22.2 L (25.0-35.0) pg MCHC 30.1 L (31.0-37.0) g/dL RDW 19.0 H (11.5-15.5) % Neutrophils # 10.5 H (1.3-7.7) k/uL Lymphocytes # (1.0-4.8) k/uL Sodium 131 L (137-145) mmol/L Potassium 3.2 L (3.5-5.1) mmol/L Chloride 97 L (98-107) mmol/L Glucose 162 H (74-99) mg/dL POC Glucose (mg/dL) 181 H (75-99) mg/dL Calcium 7.8 L (8.4-10.2) mg/dL 07/10/21 07/10/21 07/11/21 Range/Units 17:06 20:30 05:46 WBC (3.8-10.6) k/uL Hgb (11.4-16.0) gm/dL Hct (34.0-46.0) % MCV (80.0-100.0) fL MCH (25.0-35.0) pg MCHC (31.0-37.0) g/dL RDW (11.5-15.5) % Neutrophils # (1.3-7.7) k/uL Lymphocytes # (1.0-4.8) k/uL Sodium (137-145) mmol/L Potassium (3.5-5.1) mmol/L Chloride (98-107) mmol/L Glucose (74-99) mg/dL POC Glucose (mg/dL) 177 H 216 H 144 H (75-99) mg/dL Calcium (8.4-10.2) mg/dL 07/11/21 Range/Units 10:19 WBC 11.3 H (3.8-10.6) k/uL Hgb 9.2 L (11.4-16.0) gm/dL Hct 30.7 L (34.0-46.0) % MCV 71.7 L (80.0-100.0) fL MCH 21.6 L (25.0-35.0) pg MCHC 30.1 L (31.0-37.0) g/dL RDW 18.4 H (11.5-15.5) % Neutrophils # 9.7 H (1.3-7.7) k/uL Lymphocytes # 0.8 L (1.0-4.8) k/uL Sodium (137-145) mmol/L Potassium (3.5-5.1) mmol/L Chloride (98-107) mmol/L Glucose (74-99) mg/dL POC Glucose (mg/dL) (75-99) mg/dL Calcium (8.4-10.2) mg/dL Microbiology - Last 24 Hours (Table) 07/09/21 21:17 Blood Culture Gram Stain - Preliminary Blood Blood Culture - Preliminary Staphylococcus epidermidis 07/09/21 21:17 Blood Culture - Final Blood
[2021-07-11 11:52] LABS: African American GFR (CKD) >90 (>60 ml/min/1.73 sqM); Anion Gap 7 mmol/L; Blood Urea Nitrogen 10 mg/dL (7-17); Calcium 7.9 mg/dL (8.4-10.2); Carbon Dioxide 29 mmol/L (22-30); Chloride 95 mmol/L (98-107); Glucose 93 mg/dL (74-99); Magnesium 1.9 mg/dL (1.6-2.3); Non-African American GFR(CKD) >90 (>60 ml/min/1.73 sqM); Sodium 131 mmol/L (137-145)
[2021-07-11 11:57] LABS: Potassium 2.6 mmol/L (3.5-5.1)
[2021-07-11 12:26] LABS: Glucose,Whole Blood 98 mg/dL (75-99)
[2021-07-11] MEDS: POTASSIUM CHLORIDE 20 MEQ in WATER FOR INJECTION 1 100ML.BAG IVPB SCH ×4 (12:30→23:50)
[2021-07-11] MEDS: THIAMINE 100 MG TAB PO SCH (13:36)
[2021-07-11 14:21] VITALS: BMI 22.2
--- NOTE | 2021-07-11 14:39 | XR ---
EXAMINATION TYPE: XR chest 1V DATE OF EXAM: 07/11/2021 COMPARISON: 07/09/2021 INDICATION: CHF TECHNIQUE: Single frontal view of the chest is obtained. FINDINGS: The heart size is mildly prominent. The pulmonary vasculature is normal. Mild infiltrate may be in the right perihilar region. Port is present on the right with the tip in t he proximal right atrium. Small left pleural effusion is present IMPRESSION: 1. Small left pleural effusion. 2. Mild cardiomegaly. 3. There may be a right perihilar infiltrate present. Follow-up can be performed as clinically indica marie.
--- NOTE | 2021-07-11 15:31 | MR ---
EXAMINATION TYPE: MR brain wo/w con DATE OF EXAM: 07/11/2021 COMPARISON: CT brain 07/08/2021 HISTORY: AMS, possible seizure. CONTRAST: Performed utilizing 5 mL intravenous Gadavist gadolinium contrast. TECHNIQUE: Multiplanar, multiecho imaging on a 3.0 Aziza magnet is performed through the brain. Stud y is not performed within 24 hours of arrival to the hospital. The craniovertebral junction is normal. The pituitary is normal. Diffusion-weighted imaging is performed. No abnormal hyperintensity is present to suggest an acute i ntracranial infarct or acute ischemic change. Periventricular white matter changes are evident. White matter change also is present within the brai nstem. Findings are nonspecific. Chronic white matter changes most likely within the differential. Ventricles and sulci are appropriate for the patient age. No abnormal enhancement is evident. IMPRESSIONS: 1. Chronic appearing periventricular and brainstem white matter changes. 2. No acute process identified.
[2021-07-11] MEDS ORDERED: ALTEPLASE 2 MG VIAL (CATHFLO) IV STA (16:02)
[2021-07-11 17:07] LABS: Glucose,Whole Blood 99 mg/dL (75-99)
[2021-07-11] MEDS: TAMSULOSIN 0.4 MG CAP.ER.24H PO SCH (17:20)
--- NOTE | 2021-07-11 18:36 | PN ---
PROGRESS NOTE DATE OF SERVICE: 07/11/2021 REASON FOR FOLLOWUP: bacteremia. INTERVAL HISTORY: Patient is afebrile. Currently the patient is slightly more awake today, however, she did not provide any history. No vomiting, no diarrhea or any other changes reported by the nursing staff. PHYSICAL EXAMINATION: Blood pressure 139/80 with a pulse of 111, temperature 99.6, she is 99% on 2 L nasal cannula. General description is an elderly female lying in bed in no distress. Respiratory system: Unlabored breathing, decreased breath sounds in the bases. No wheeze. Heart S1, S2. Regular rate and rhythm. Abdomen soft, no tenderness. LABS: Hemoglobin 9.1, white count 11.3, creatinine 0.50. DIAGNOSTIC IMPRESSION AND PLAN: Patient with Staph epi bacteremia in this patient who did have severely elevated white count. Patient does have a port, that is the only concerning factor. We will repeat blood cultures from the port and empirically continue with vancomycin. Antibiotic adjusted further based on repeat cultures. Continue supportive care. MMODL / IJN: [id number] /
[2021-07-11 19:58] LABS: Glucose,Whole Blood 106 mg/dL (75-99)
[2021-07-11] MEDS: PRAVASTATIN SODIUM 20 MG TAB PO SCH (21:44)
[2021-07-11] MEDS: INSULIN DETEMIR (LEVEMIR) 100 UNIT/ML SYR SQ SCH (21:44)
[2021-07-12] MEDS: POTASSIUM CHLORIDE 20 MEQ in WATER FOR INJECTION 1 100ML.BAG IVPB SCH (02:50)
[2021-07-12] MEDS: SODIUM CHLORIDE 0.9% 1,000 ML IV SCH (02:50)
[2021-07-12] MEDS: PANTOPRAZOLE 40 MG TABLET PO SCH (06:07)
[2021-07-12 06:16] LABS: Glucose,Whole Blood 84 mg/dL (75-99)
[2021-07-12 06:18] VITALS: RESP 18
[2021-07-12] MEDS: INSULIN ASPART (NovoLOG) 100 UNIT/ML VIAL SQ SCH ×2 (06:19→06:20)
[2021-07-12] MEDS: IPRATROPIUM-ALBUTEROL 3 ML NEB INHALATION SCH (08:14)
[2021-07-12] MEDS: SYMBICORT 160-4.5 MCG INHALER INHALATION SCH (08:14)
[2021-07-12] MEDS: ENOXAPARIN 40 MG/0.4 ML SYRINGE SQ SCH (08:26)
[2021-07-12 10:26] VITALS: BP 149/66; PULSE 99; TEMP 99
--- NOTE | 2021-07-12 10:28 | P.PN ---
Subjective Progress Note Date: 07/11/21 Patient was seen for a follow-up. Patient is significantly encephalopathic, does not follow commands. Patient appears very restless, however no seizure- like activity reported. Patient is obtunded. Patient moves all 4 extremities. WORK-UP: TSH is a 1.170. Vitamin B-12 is 1342 serum folate is 16.90. AST of 529 and ALT of 22. Ammonia is less than 9 Urine analysis on the first 1 was negative a most recent patient has a trace of leukocyte esterase and urine bacteria was rare and it looks cloudy and I'm not sure if the patient is developing underlying urinary tract infection. Urine tox screen is positive for opiates, Tri-Cyclen it's and benzo. The serum alcohol was less than 10. Coronavirus PCR was not detected. Influenza A and B are not detected. CT of the head on 07/02/2021 is reported as prior chronic small vessel ischemia. No change compared to old exam. No acute abnormality. Per Paulner review the CT of the head and there is no acute or subacute ischemia that's appreciable and there is no intraparenchymal hemorrhage. CT of the face is reported as negative CT scan of the facial bone. No fracture. Repeat CT head on 07/08/2021: Is reported as chronic small vessel ischemia. Mild atrophy. No change compared to recent exam. I personally reviewed the CT of the head and I do not see any acute or subacute ischemia and there is no intra-parenchymal hemorrhage. Objective - Vital Signs Vital signs: Vital Signs Temp 99.6 F 07/11/21 11:17 Pulse 112 H 07/11/21 16:22 Resp 18 07/11/21 14:23 BP 139/63 07/11/21 11:17 Pulse Ox 99 07/11/21 11:26 Intake & Output 07/10/21 07/11/21 07/11/21 18:59 06:59 18:59 Intake Total 0 0 Output Total 250 600 Balance -250 0 -600 Weight 53.5 kg 53.5 kg Intake: Oral 0 0 Output: Urine 250 600 Other: Voiding Method Indwelling Catheter Indwelling Catheter Indwelling Catheter # Bowel Movements 0 - Exam GENERAL: The patient is lying and does not seem in acute distress while resting. HENT is head rotated to left and seem fixed that way (per that how she normally is when lying). Somewhat easier to flex her neck compared to the last two days. NEUROLOGICAL: Limited because of her condition. Higher mental function: The patient is comatose. GCS 6 ( E1, V1, M4). She is non-responsive and not following commands. All she says is ouch with painful stimuli. Cranial nerves: The pupils are round, dilated, about 5-6mm bilaterally and contricts to light bilaterally. Her eyes has preference to right but not as gaze deviated as two days ago. No facial weakness. Has facial echymosis over left side cheek, and center of nasal region. over (from recent fall outside hospital). Otherwise could not assess rest of cranial nerves. Motor: The strength could not be assessed. Increase tone throughout. With jason nful stimuli she withdrawl in all extremities except left upper extremity and grimace to pain over left upper. Atrophy over the right thigh (old). Cerebellum: Could not asses. Sensation: Could not asses. Reflexes (right/left): 2+ over left brachioradialis otherwise 0 throughout. Plantars are mute bilaterally. - Labs CBC & Chem 7: 07/11/21 10:19 07/11/21 10:19 Labs: Abnormal Lab Results - Last 24 Hours (Table) 07/10/21 07/10/21 07/11/21 Range/Units 17:06 20:30 05:46 WBC (3.8-10.6) k/uL Hgb (11.4-16.0) gm/dL Hct (34.0-46.0) % MCV (80.0-100.0) fL MCH (25.0-35.0) pg MCHC (31.0-37.0) g/dL RDW (11.5-15.5) % Neutrophils # (1.3-7.7) k/uL Lymphocytes # (1.0-4.8) k/uL Sodium (137-145) mmol/L Potassium (3.5-5.1) mmol/L Chloride (98-107) mmol/L Creatinine (0.52-1.04) mg/dL POC Glucose (mg/dL) 177 H 216 H 144 H (75-99) mg/dL Calcium (8.4-10.2) mg/dL 07/11/21 07/11/21 Range/Units 10:19 10:19 WBC 11.3 H (3.8-10.6) k/uL Hgb 9.2 L (11.4-16.0) gm/dL Hct 30.7 L (34.0-46.0) % MCV 71.7 L (80.0-100.0) fL MCH 21.6 L (25.0-35.0) pg MCHC 30.1 L (31.0-37.0) g/dL RDW 18.4 H (11.5-15.5) % Neutrophils # 9.7 H (1.3-7.7) k/uL Lymphocytes # 0.8 L (1.0-4.8) k/uL Sodium 131 L (137-145) mmol/L Potassium 2.6 L* (3.5-5.1) mmol/L Chloride 95 L (98-107) mmol/L Creatinine 0.50 L (0.52-1.04) mg/dL POC Glucose (mg/dL) (75-99) mg/dL Calcium 7.9 L (8.4-10.2) mg/dL Microbiology - Last 24 Hours (Table) 07/09/21 21:17 Blood Culture Gram Stain - Preliminary Blood Blood Culture - Preliminary Staphylococcus epidermidis 07/09/21 21:17 Blood Culture - Final Blood Assessment and Plan Assessment: * Altered mental status (per patient's around 07/04 or 07/05/2021), possible toxic metabolic encephalopathy. Meningitis encephalitis still in the differential. Patient's declined lumbar puncture. * Dilated pupils, probably due to side effect of Atrovent. 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 Periventricular and brainstem white matter changes. No acute process. Patient's declined lumbar puncture. He is inclined towards comfort care. Consulted infection disease team. EEG: Is abnormal. The background slowing is mild to moderate encephalopathy. There are no focal slowing, epileptiform discharges or seizure on the EEG. No indication for antiepileptic medication, as patient never had any clinical seizure. We will stop Vimpat. Discussed with Dr. Wetzel, who also agreed. Every 4 hours neuro checks. She is currently on thiamine 100 mg daily Patient is also on folic acid 1 mg daily. Pulmonary team is on board Defer the rest of the medical management to the primary team.
[2021-07-12] MEDS ORDERED: VANCOMYCIN TROUGH DUE 1 EACH MISC MISCELLANE ONE (22:00)
--- NOTE | 2021-07-22 10:25 | P.DS ---
Providers Date of admission: 07/02/21 18:27 Expected date of discharge: 07/13/21 Attending physician: Brenton Wang Consults: 07/02/21 17:55 Consult Physician Routine Consulting Provider: Rohit Ozuna Consult Reason/Comments: pneumonia Do you want consulting provider notified?: Yes 07/05/21 13:36 Consult Physician Urgent Consulting Provider: Giovanni Arriaza Consult Reason/Comments: Urinary Retention Do you want consulting provider notified?: Yes 07/08/21 13:48 Consult Physician Routine Consulting Provider: Damaso Ozuna Consult Reason/Comments: altered mental status Do you want consulting provider notified?: Yes 07/08/21 16:23 Consult Physician Urgent Consulting Provider: Nam Newman Consult Reason/Comments: leukocytosis with altered mentation ?meningoencephalitis Do you want consulting provider notified?: Yes [facility] care [facility]: [facility] Course: Final diagnosis -Severe metabolic and toxic encephalopathy: Etiology is not clear, patient was being treated for lower lobe pneumonia along with having bacteremia -Possibility of left lower lobe pneumonia which I cannot completely rule out at this time. -Urinary retention, possibly acute versus chronic, continued with indwelling trimble catheter -History of recent COVID-19 pneumonia: With the residual encephalopathic changes -CVA ruled out -History of iron deficiency anemia -Hyperlipidemia -diabetes mellitus type 2 -No code Preliminary cause of Pneumonia Discharge disposition Patient has on 07/13/2021. According to nursing documentation time of was 0350. Please refer to previous dictations for further HPI. Hospital course This is a 66-year-old female who was recently admitted with severe encephalopathy with etiology unknown and extensive workup has been done neurologically along with infectious process and patient was maintained on antibiotics and underwent an EEG and MRI with no significant findings. Patient was prophylactically started on antiseizure medication with no seizure activity noted and was ultimately discontinued. Patient continued to be obtunded and unresponsive and family opted for [facility] hospice with comfort measures only. Was signed on to [facility] with comfort measures and ultimately this morning at 0350. Patient Condition at Discharge: Poor Plan - Discharge Summary Discharge Rx Participant: No New Discharge Prescriptions: New Levofloxacin [Levaquin] 750 mg PO DAILY 7 Days #7 tab Ipratropium-Albuterol Nebulize [Duoneb 0.5 mg-3 mg/3 ml Soln] 3 ml INHALATION RT-QID #120 ml Multivitamins, Thera [Multivitamin] 1 tab PO DAILY #30 tablet Continue traZODone HCL 75 mg PO HS Fluticasone/Salmeterol [Advair Hfa 230-21 Mcg Inhaler] 2 puff INHALATION RT- BID Pravastatin Sodium [Pravachol] 10 mg PO HS Pantoprazole [Protonix] 40 mg PO DAILY ALPRAZolam [Xanax] 0.25 mg PO HS PRN PRN Reason: Anxiety Promethazine 6.25MG/5Ml [Phenergan Syrup] 6.25 mg PO Q4H PRN PRN Reason: Cough Acetaminophen Tab [Tylenol] 650 mg PO Q6HR PRN tab PRN Reason: Mild Pain Or Fever > 100.5 busPIRone HCL 30 mg PO BID Insulin Aspart [NovoLOG Flexpen] 6 units SQ AC-TID Denosumab [Prolia] 60 mg SQ Q180D HYDROcodone/APAP 7.5-325MG [[place] 7.5-325] 1 tab PO Q4H PRN PRN Reason: Pain Potassium Chloride [Klor-Con 20] 60 meq PO BID Glucagon Emergency Kit 1 mg IM ONCE PRN PRN Reason: Blood Sugar - Low Insulin Glargine,Hum.rec.anlog [Lantus Solostar Pen] 10 unit SQ HS Furosemide [Lasix] 40 mg PO TID predniSONE 20 mg PO DAILY ALPRAZolam [Xanax] 0.5 mg PO TID PRN PRN Reason: Anxiety Changed Spironolactone [Aldactone] 25 mg PO DAILY #30 Discontinued Escitalopram [Lexapro] 20 mg PO DAILY Amitriptyline HCl [Elavil] 30 mg PO HS buPROPion XL [Wellbutrin XL] 450 mg PO DAILY Pregabalin [Lyrica] 100 mg PO TID Albuterol Inhaler [Ventolin Hfa Inhaler] 2 puff INHALATION RT-QID PRN #1 puff PRN Reason: Shortness Of Breath No Action Escitalopram [Lexapro] 20 mg PO DAILY Discharge Medication List traZODone HCL 75 mg PO HS 09/10/16 [History] Fluticasone/Salmeterol [Advair Hfa 230-21 Mcg Inhaler] 2 puff INHALATION RT-BID 04/09/19 [History] ALPRAZolam [Xanax] 0.25 mg PO HS PRN 07/21/20 [History] Pantoprazole [Protonix] 40 mg PO DAILY 07/21/20 [History] Pravastatin Sodium [Pravachol] 10 mg PO HS 07/21/20 [History] Promethazine 6.25MG/5Ml [Phenergan Syrup] 6.25 mg PO Q4H PRN 07/21/20 [History] Acetaminophen Tab [Tylenol] 650 mg PO Q6HR PRN tab 07/27/20 [Rx] Denosumab [Prolia] 60 mg SQ Q180D 03/03/21 [History] Glucagon Emergency Kit 1 mg IM ONCE PRN 03/03/21 [History] Insulin Aspart [NovoLOG Flexpen] 6 units SQ AC-TID 03/03/21 [History] Insulin Glargine,Hum.rec.anlog [Lantus Solostar Pen] 10 unit SQ HS 03/03/21 [History] busPIRone HCL 30 mg PO BID 03/03/21 [History] ALPRAZolam [Xanax] 0.5 mg PO TID PRN 05/15/21 [History] Furosemide [Lasix] 40 mg PO TID 05/15/21 [History] HYDROcodone/APAP 7.5-325MG [[place] 7.5-325] 1 tab PO Q4H PRN 05/15/21 [History] Potassium Chloride [Klor-Con 20] 60 meq PO BID 05/15/21 [History] predniSONE 20 mg PO DAILY 05/15/21 [History] Ipratropium-Albuterol Nebulize [Duoneb 0.5 mg-3 mg/3 ml Soln] 3 ml INHALATION RT-QID #120 ml 07/05/21 [Rx] Levofloxacin [Levaquin] 750 mg PO DAILY 7 Days #7 tab 07/05/21 [Rx] Multivitamins, Thera [Multivitamin] 1 tab PO DAILY #30 tablet 07/05/21 [Rx] Spironolactone [Aldactone] 25 mg PO DAILY #30 07/05/21 [Rx] Escitalopram [Lexapro] 20 mg PO DAILY 07/07/21 [History] Follow up Appointment(s)/Referral(s): Ponce Kothari MD [Primary Care Provider] - 1-2 days Ambulatory/Diagnostic Orders: Complete Blood Count w/diff [LAB.AMB] Location: None Selected Discharge Disposition: DISCH TO HOSPICE MED FACILTY
--- NOTE | 2021-07-26 09:13 | CDI ---
Documentation Clarification Form Date: 07/26/2021 09:06:57 AM From: Rober Camara Admit Date: 07/02/2021 06:27:00 PM Patient Name: Amelia Medrano Visit Number: [id number] Discharge Date: 07/12/2021 11:03:00 AM ATTENTION: The Clinical Documentation Specialists (CDI) and [facility] Coding Staff appreciate your assistance in clarifying documentation. Please respond to the clarification below the line at the bottom and electronically sign. The CDI & [facility] Coding staff will review the response and follow-up if needed. Please note: Queries are made part of the Legal Health Record. If you have any questions, please contact the author of this message via ITS. Dr. Francisco Wetzel There is documentation of bacteremia in your discharge summary. Bacteremia is considered a lab finding. Additional clarification regarding bacteremia is requested. Progress notes 07/06-07/10 indicate sepsis. Your discharge summary states bacteremia. Need to establish if this is bacteremia only or sepsis which will affect the principle diagnosis. Patient history/risk factors: PNA Clinical Indicators: WBC: 17 Left Shift Blood Culture: Consult: for AMS and leukocytosis Treatment: Antibiotics IV Please provide additional clarification regarding the etiology/cause and/or clinical significance of the bacteremia: [ ] Bacteremia is related to sepsis [ ] Bacteremia is due to infectious process, please specify: [ x] Bacteremia is not clinically significant [ ] Other, please specify [ ] Unable to determine Bacteremia secondary to contamination MTDD
== END 2021-07-12 11:03 | disposition hospice, inpatient (51) | DRG 871 ==
LOC: EC 12:47 → 3SCARD 18:27
PROVIDERS: ADMIT Internal Medicine; ATTEND Internal Medicine
DX: A41.50 Gram-negative sepsis, unspecified (principal); J15.6 Pneumonia due to other Gram-negative bacteria; G93.41 Metabolic encephalopathy; G92.9 Unspecified toxic encephalopathy; E27.40 Unspecified adrenocortical insufficiency; E44.1 Mild protein-calorie malnutrition; J44.0 Chronic obstructive pulmonary disease with (acute) lower respiratory infection; J45.51 Severe persistent asthma with (acute) exacerbation; M48.54XA Collapsed vertebra, not elsewhere classified, thoracic region, initial encounter for fracture; N17.9 Acute kidney failure, unspecified; N39.0 Urinary tract infection, site not specified; R41.4 Neurologic neglect syndrome; D80.1 Nonfamilial hypogammaglobulinemia; J96.12 Chronic respiratory failure with hypercapnia; D50.9 Iron deficiency anemia, unspecified; D53.9 Nutritional anemia, unspecified; E09.65 Drug or chemical induced diabetes mellitus with hyperglycemia; E78.5 Hyperlipidemia, unspecified; Z20.822 Contact with and (suspected) exposure to COVID-19; Z51.5 Encounter for palliative care; Z66 Do not resuscitate; E87.6 Hypokalemia; F32.A Depression, unspecified; F41.9 Anxiety disorder, unspecified; G47.33 Obstructive sleep apnea (adult) (pediatric); G89.29 Other chronic pain; H40.9 Unspecified glaucoma; H57.04 Mydriasis; M79.7 Fibromyalgia; R62.7 Adult failure to thrive; T38.0X5A Adverse effect of glucocorticoids and synthetic analogues, initial encounter; S00.83XA Contusion of other part of head, initial encounter; W19.XXXA Unspecified fall, initial encounter; I10 Essential (primary) hypertension; U09.9 Post COVID-19 condition, unspecified; Z79.4 Long term (current) use of insulin; Z79.51 Long term (current) use of inhaled steroids; Z79.52 Long term (current) use of systemic steroids; Z79.899 Other long term (current) drug therapy; Z80.3 Family history of malignant neoplasm of breast; Z87.01 Personal history of pneumonia (recurrent); Z87.440 Personal history of urinary (tract) infections; Z87.891 Personal history of nicotine dependence; Z99.81 Dependence on supplemental oxygen
CPT/HCPCS: 36415; 70450; 70486; 70553; 71045; 74018; 78580; 80048; 80053; 80306; 80320; 81001; 81003; 82140; 82607; 82746; 83605; 83735; 83880; 84145; 84443; 84484; 85025; 85379; 85610; 85730; 86850; 86900; 86901; 87040; 87502; 87635; 93005; 94640; 94760; 95816; 96361; 96365; 96366; 96367; 99285

== ENCOUNTER 2021-07-12 10:49 | Inpatient (IN) | payer MEDICAID ==
[2021-07-12] MEDS ORDERED: ACETAMINOPHEN SUPPOSITORY 650 MG SUPP RECTAL PRN (10:55)
[2021-07-12] MEDS ORDERED: MORPHINE SULFATE 2 MG/ML SYRINGE IV PRN (10:55)
[2021-07-12] MEDS ORDERED: GLYCOPYRROLATE 0.2 MG/ML 2 ML VIAL IVP PRN (10:55)
[2021-07-12] MEDS ORDERED: ATROPINE OPHTH SOLN 1% 5ML BTL SUBLINGUAL PRN (10:55)
[2021-07-12] MEDS ORDERED: ONDANSETRON 4 MG/2 ML VIAL IVP PRN (10:55)
[2021-07-12] MEDS ORDERED: LORazepam 2 MG/ML INJ IV PRN (10:55)
[2021-07-12] MEDS ORDERED: MORPHINE SULFATE (100 MG/2 ML) 100 MG in SODIUM CHLORIDE 0.9% 100 ML IV SCH (11:00)
[2021-07-12 12:07] LABS: Glucose,Whole Blood 82 mg/dL (75-99)
--- NOTE | 2021-07-12 15:05 | P.PN ---
Subjective Progress Note Date: 07/12/21 Patient is a 66-year-old female admitted for severe encephalopathy etiology is not clear. Patient was receiving levofloxacin since admission which at this can you patient is still on ertapenem and I sent for a possible Pichardo gram-positive blood cultures although it turned out to be staph epidermidis. Patient doesn't have any clear clinical evidence of infection at this time. Patient was evaluated by multiple consultants including infectious disease and infectious disease regarding current to continue broad-spectrum antibodies for now patient did have leukocytosis which is improving although as mentioned above no obvious evidence of infection. Patient was also evaluated by neurology and patient will undergo MRI. Patient had an EEG which did not show any seizure focus although patient isn't currently on antiseizure medication. Discussed with the neurologist rounding today to see if this can be dyspnea. Patient has fixed bilateral dilated pupils because of which neurology recommended an MRI. Patient also had a cold recently. Patient is on steroids and patient has not been taking this because of patient is not taking any by mouth medications patient is alert and oriented 0 07/12/2021 Patient is seen and evaluated in follow-up this morning with at the bedside and has not with [facility] and has signed consent to continue with comfort measures only. Patient was being followed by multiple medical consultations including infectious disease, neurology, pulmonary with no significant change in patient's clinically deteriorating and wants her to be made comfortable with no further interventions. We'll continue to monitor closely as prognosis remains extremely poor and guarded. Physical exam: Gen: This is a 66-year-old female not oriented, obtunded, unresponsive, ill- appearing, appears older than stated age HEENT: Head is atraumatic, normocephalic. Those are fixed and dilated. Sclerae is anicteric. Continued nasal bruising noted NECK: Supple. No JVD. No lymphadenopathy. No thyromegaly. LUNGS: Diminished breath sounds bilaterally with a few scattered rhonchi and crackles noted. Respiratory gurgling noted on exam. No intercostal retractions. HEART: S1, S2 are muffled ABDOMEN: Soft. Bowel sounds are present. No masses. No tenderness. EXTREMITIES: No pedal edema. No calf tenderness. NEUROLOGICAL: As mentioned above Assessment: -Severe metabolic and toxic encephalopathy: Etiology is not clear, patient was being treated for right lower lobe pneumonia along with having bacteremia which showed staph epidermidis which is most likely a contamination and patient continues to be obtunded and unresponsive and family has opted for hospice with comfort measures only -Possibility of right lower lobe pneumonia which I cannot completely rule out at this time. -Urinary retention, possibly acute versus chronic, continued with indwelling fol ey catheter -History of recent COVID-19 pneumonia: With the residual encephalopathic changes -History of iron deficiency anemia -Hyperlipidemia -diabetes mellitus type 2 -No code Plan: Patient has shown clinical decline with no improvement and continues to be extremely encephalopathic with no evidence of improved mentation and is undergoing extensive infectious workup along with neurological workup and results of been negative. Family requested hospice consult and has signed on with [facility] for comfort measures only which are being initiated. Will monitor closely and prognosis is extremely poor. Objective - Vital Signs Vital signs: Intake & Output 07/11/21 07/12/21 07/12/21 18:59 06:59 18:59 Intake Total 0.918 Balance 0.918 Weight 55.5 kg Intake: Intake, IV Titration 0.918 Amount Morphine Sulfate (100 mg/ 0.918 2 ml) 100 mg In Sodium Chloride 0.9% 100 ml @ 1 MG/HR 1.02 mls/hr IV . Q24H [facility] Rx#:[id number] Other: Voiding Method Indwelling Catheter
[2021-07-12 20:50] VITALS: RESP 22
[2021-07-13 04:48] VITALS: PULSE 89
--- NOTE | 2021-07-13 09:56 | P.DS ---
Providers Date of admission: 07/12/21 11:11 Expected date of discharge: 07/13/21 Attending physician: Brenton Wang Primary care physician: Ponce Kothari [facility] Course: Final diagnosis -Severe metabolic and toxic encephalopathy: Etiology is not clear, patient was being treated for lower lobe pneumonia along with having bacteremia -Possibility of left lower lobe pneumonia which I cannot completely rule out at this time. -Urinary retention, possibly acute versus chronic, continued with indwelling trimble catheter -History of recent COVID-19 pneumonia: With the residual encephalopathic changes -CVA ruled out -History of iron deficiency anemia -Hyperlipidemia -diabetes mellitus type 2 -No code Preliminary cause of Pneumonia Discharge disposition Patient has on 07/13/2021. According to nursing documentation time of was 0350. Please refer to previous dictations for further HPI. Hospital course This is a 66-year-old female who was recently admitted with severe encephalopathy with etiology unknown and extensive workup has been done neurologically along with infectious process and patient was maintained on antibiotics and underwent an EEG and MRI with no significant findings. Patient was prophylactically started on antiseizure medication with no seizure activity noted and was ultimately discontinued. Patient continued to be obtunded and unresponsive and family opted for [facility] hospice with comfort measures only. Was signed on to [facility] with comfort measures and ultimately this morning at 0350. Patient Condition at Discharge: Poor Plan - Discharge Summary New Discharge Prescriptions: No Action traZODone HCL 75 mg PO HS Fluticasone/Salmeterol [Advair Hfa 230-21 Mcg Inhaler] 2 puff INHALATION RT- BID Pravastatin Sodium [Pravachol] 10 mg PO HS Pantoprazole [Protonix] 40 mg PO DAILY ALPRAZolam [Xanax] 0.25 mg PO HS PRN PRN Reason: Anxiety Promethazine 6.25MG/5Ml [Phenergan Syrup] 6.25 mg PO Q4H PRN PRN Reason: Cough Acetaminophen Tab [Tylenol] 650 mg PO Q6HR PRN tab PRN Reason: Mild Pain Or Fever > 100.5 busPIRone HCL 30 mg PO BID Insulin Aspart [NovoLOG Flexpen] 6 units SQ AC-TID Denosumab [Prolia] 60 mg SQ Q180D HYDROcodone/APAP 7.5-325MG [[place] 7.5-325] 1 tab PO Q4H PRN PRN Reason: Pain Potassium Chloride [Klor-Con 20] 60 meq PO BID Levofloxacin [Levaquin] 750 mg PO DAILY 7 Days #7 tab Spironolactone [Aldactone] 25 mg PO DAILY #30 Escitalopram [Lexapro] 20 mg PO DAILY Glucagon Emergency Kit 1 mg IM ONCE PRN PRN Reason: Blood Sugar - Low Insulin Glargine,Hum.rec.anlog [Lantus Solostar Pen] 10 unit SQ HS Furosemide [Lasix] 40 mg PO TID predniSONE 20 mg PO DAILY ALPRAZolam [Xanax] 0.5 mg PO TID PRN PRN Reason: Anxiety Ipratropium-Albuterol Nebulize [Duoneb 0.5 mg-3 mg/3 ml Soln] 3 ml INHALATION RT-QID #120 ml Multivitamins, Thera [Multivitamin] 1 tab PO DAILY #30 tablet Discharge Medication List traZODone HCL 75 mg PO HS 09/10/16 [History] Fluticasone/Salmeterol [Advair Hfa 230-21 Mcg Inhaler] 2 puff INHALATION RT-BID 04/09/19 [History] ALPRAZolam [Xanax] 0.25 mg PO HS PRN 07/21/20 [History] Pantoprazole [Protonix] 40 mg PO DAILY 07/21/20 [History] Pravastatin Sodium [Pravachol] 10 mg PO HS 07/21/20 [History] Promethazine 6.25MG/5Ml [Phenergan Syrup] 6.25 mg PO Q4H PRN 07/21/20 [History] Acetaminophen Tab [Tylenol] 650 mg PO Q6HR PRN tab 07/27/20 [Rx] Denosumab [Prolia] 60 mg SQ Q180D 03/03/21 [History] Glucagon Emergency Kit 1 mg IM ONCE PRN 03/03/21 [History] Insulin Aspart [NovoLOG Flexpen] 6 units SQ AC-TID 03/03/21 [History] Insulin Glargine,Hum.rec.anlog [Lantus Solostar Pen] 10 unit SQ HS 03/03/21 [History] busPIRone HCL 30 mg PO BID 03/03/21 [History] ALPRAZolam [Xanax] 0.5 mg PO TID PRN 05/15/21 [History] Furosemide [Lasix] 40 mg PO TID 05/15/21 [History] HYDROcodone/APAP 7.5-325MG [[place] 7.5-325] 1 tab PO Q4H PRN 05/15/21 [History] Potassium Chloride [Klor-Con 20] 60 meq PO BID 05/15/21 [History] predniSONE 20 mg PO DAILY 05/15/21 [History] Ipratropium-Albuterol Nebulize [Duoneb 0.5 mg-3 mg/3 ml Soln] 3 ml INHALATION RT-QID #120 ml 07/05/21 [Rx] Levofloxacin [Levaquin] 750 mg PO DAILY 7 Days #7 tab 07/05/21 [Rx] Multivitamins, Thera [Multivitamin] 1 tab PO DAILY #30 tablet 07/05/21 [Rx] Spironolactone [Aldactone] 25 mg PO DAILY #30 07/05/21 [Rx] Escitalopram [Lexapro] 20 mg PO DAILY 07/07/21 [History] Discharge Disposition: - Preliminary Cause of Preliminary Cause of : pneumonia
== END 2021-07-13 07:02 | disposition expired | DRG 951 ==
LOC: 3SCARD 11:11
PROVIDERS: ADMIT Internal Medicine; ATTEND Internal Medicine
DX: Z51.5 Encounter for palliative care (principal); J18.9 Pneumonia, unspecified organism; G93.41 Metabolic encephalopathy; G92.9 Unspecified toxic encephalopathy; R78.81 Bacteremia; H57.04 Mydriasis; E78.5 Hyperlipidemia, unspecified; E11.9 Type 2 diabetes mellitus without complications; Z66 Do not resuscitate; Z87.01 Personal history of pneumonia (recurrent); U09.9 Post COVID-19 condition, unspecified
CPT/HCPCS: 94760